=== PATIENT | female | born 1995 | race Caucasian/White ===

== ENCOUNTER 2023-10-23 22:45 | Emergency (ER) | payer SELFPAY ==
[2023-10-24 00:19] LABS: Internal Control Within Normal Limits; Strep A Antigen Screen Negative
--- NOTE | 2023-10-24 00:45 | ED.URI1 ---
HPI - URI/Sore Throat General Stated Complaint: sore throat Time Seen by Provider: 10/24/23 00:41 History of Present Illness HPI Narrative: states she kicked something at work last PM and bruised her right foot. also complains of mild cough that is dry and sore throat. no fever. Not short of breath. No problem swallowing. No nausea or vomiting able to walk without difficulty Review of Systems ROS Status of ROS 10 or more systems reviewed and unremarkable except as noted in history and below Exam Constitutional Vital Signs, click to edit/add: Last Vital Signs Resp 18 10/24/23 00:28 Common normals: no apparent distress, oriented x3, no limitations, alert and well nourished HENMT Common normals: normocephalic and head/scalp atraumatic Throat: posterior oropharynx normal Eye Common normals: PERRL, EOMs intact bilaterally and conjunctivae normal Respiratory Common normals: normal respiratory effort, no retractions, no use of accessory muscles and clear to auscultation bilaterally Cardio Common normals: regular rate, regular rhythm, S1 normal heart sound and S2 normal heart sound GI Common normals: Normal to inspection, nondistended, normoactive bowel sounds present, soft to palpation and non-tender Extremity Common normals: normal to inspection and full ROM Neuro Common normals: oriented x3, CN's II-XII intact bilaterally, moves all extremities and no focal motor deficits Psych Appearance: grossly normal Course Vital Signs Vital signs: Vital Signs Respiratory Rate 18 10/24/23 00:28 Respiratory Rate 18 10/24/23 00:28 MDM - URI/Sore Throat MDM Narrative Medical decision making narrative: patient presents complaining of foot pain. Kicked something and hurt her right foot. No swelling or discoloration. No pain with ROM. Also complains of dry cough and sore throat. Throat clear and chest clear. Patient very stable clinically. Requesting work note for tonight and discharged home Lab Data Labs: Lab Results 10/23/23 Range/Units 23:56 Streptococcus Screen Negative Discharge Plan Discharge Stand Alone Forms: Work/School Release, Portal Instructions Clinical Impression: Contusion of foot, right, URI (upper respiratory infection) Patient Disposition: Home, Self-Care Print Language: Citizen Of [place] Instructions: Upper Respiratory Infection (ED), Foot Contusion (ED) Additional Instructions: follow up with your doctor in next few days Referrals: Physician,Non-Staff, MD [Primary Care Provider] - 1 week
== END 2023-10-24 00:58 | disposition home or self-care (01) ==
PROVIDERS: Emergency Provider Internal Medicine
DX: S90.31XA Contusion of right foot, initial encounter (principal); J06.9 Acute upper respiratory infection, unspecified; W22.8XXA Striking against or struck by other objects, initial encounter
CPT/HCPCS: 87070; 87880; 99283

== ENCOUNTER 2023-10-26 18:52 | Emergency (ER) | payer SELFPAY ==
[2023-10-26 18:59] VITALS: BP 136/95; PULSE 94; TEMP 36.9; O2SAT 99; BMI 44.7
--- OUTSIDE RECORDS SUMMARY | 2023-10-26 19:03 | XMS_ITS | CCD ---
Author Organization [facility] Care Team Providers Care Staff Readiness Officer Name Role Phone MAYRA RUIZ A Unavailable Unavailable GILMA LENDITA Unavailable Unavaila EVETTE Abreu Unavailable Unavailable LARISSA SUGGS Unavailable Unavailable ADRIANNA GOMEZ Primary Care Unavailable GLORIA HENRY Admitting Unavailable GLORIA HENRY Attending Unavailable GLORIA HENRY Consulting Unavailable Unavailable Primary Care Provider UnavailCHAR Sterling Attending Unavailable TUNDE CASTRO Attending Unavailable Unavailable Primary Care Provider UnavailAdrianna Gil Primary Care Physician Unavailab Anita Nelson Physician Unavailable Al-Vicente, Issam A Primary Care Provider Unavailab le Al-Vicente, Issam A Primary Care Provider Unavailab le Unavailable Primary Care Provider UnavailObed Brown MD Primary Care Provider [phone] Aj GONZALES, Nicole Adams Primary Care Provider Johana Ayala MD Primary Care Provider Johana Ayala MD Primary Care Provider UNKNOWN, PHYSICIAN Primary Care Unavailable SELF, REFERRED Referring Unavailable PRICILA COSTA Attending Unavailable PRICILA COSTA Admitting Unavailable KATLYN WILLAMS Admitting Unavailable SELF, REFERRED Primary Care Unavailable SELF, REFERRED Referring Unavailable KATLYN WILLAMS Attending Unavailable PEDRO DONG Admitting Unavailable SELF, REFERRED Referring Unavailable SELF, REFERRED Primary Care Unavailable PEDRO DONG Attending Unavailable SELF, REFERRED Referring Unavailable SELF, REFERRED Primary Care Unavailable PEDRO DONG Attending Unavailable PEDRO DONG Admitting Unavailable UNKNOWN, PHYSICIAN Primary Care Unavailable SELF, REFERRED Referring Unavailable DOMINGUEZ WESLEY Attending Unavailable DOMINGUEZ WESLEY Admitting Unavailable SON Burgess Attending Provider Johana Ayala MD Primary Care Provider Kb Pelaez CNP Primary Care Provider [phone] Kb Pelaez CNP Attending Unavailable Heather HARTLEY, Johana Abrams Attending [facility] Primary Care Provider [phone] VERENICE LLANES Attending [facility]ending Un[facility] Referring Unavailable [facility] Primary Care Unavailable JESSICA AGUSTIN Referring Unavailable [facility], AMJAD Primary Care Unavailable DREAD FUENTES Referring Unavailabl e JAMIE, AMJAD Primary Care Unavailable SRAVANTHI BAL Referring Unavailable [facility] Primary Care Unavailable ODALYS MOORE Referring Unavailable [facility] Un[facility] Referring Unavailable [facility] Primary Care Unavailable KB PELAEZ Referring Unavailable [facility] Primary Care Unavailable KB PELAEZ Referring Unavailable [facility] Primary Care Unavailable Carrol Culp DDS Unavailable [phone] [facility] Primary Care Provider [facility] Referring Unavailable [facility] Primary Care Unavailable KIRSTEN BLANDON Attending Unavailable [facility] Referring Unavailable [facility] Primary Care Unavailable ROSALIE COX Attending Unavailable POLINA FLOWERS Attending Unavailable [facility] Referring Unavailable [facility] Primary Care Unavailable [facility] Primary Care Physician Unavailab EMMIE Jacobsen Attending Unavaila YEISON Mccrakcen Primary Care Unavailable ANNA LUNA S Consulting Unavailable MAUCHRISPRIYANKADuyen Admitting Unavailsuman LEWIS JUANITA Primary Care Unavailable JANNETH KUMAR GEORGIANA Adams~[id number] Atte nding Unavailable JAROD SWANSON Attending UnavailFlakito Ramirez Attending Unavailable Anup PRINCE Referring Unavailable JAROD SWANSON Attending JAROD Manrique Attending Unavailkoffi e Allergies Allergy Classification Reported Allergen(s) Allergy Type Date of Onset Reaction(s) Facility Cabbage preparation (5 sources) Cabbage preparation Drug Allergy 8 [facility] Latex (5 sources) Latex Substance Allergy 9 [facility] metFORMIN (5 sources) metFORMIN Drug Allergy 9 [facility] Opioid Agonists (5 sources) Codeine Drug Allergy 0 [facility] tomato allergenic extract (5 sources) tomato allergenic extract Drug Allergy 1 Anaphylaxis [facility] (19 sources) Cabbage preparation; Translations: [cabbage] Drug Allergy 7 Anaphylaxis [facility] (19 sources) metFORMIN; Translations: [metFORMIN] Drug Allergy 9 Anaphylaxis [facility] (20 sources) Cabbage preparation Drug Allergy 8 [place], [place] (20 sources) Latex; Translations: [Latex] Propensity to adverse reactions to drug 9 Rash [place] (20 sources) metFORMIN; Translations: [metformin] Drug Allergy 9 Hives, Anaphylaxis [place] (20 sources) Dove Flavor; Translations: [dove flavor] Propensity to adverse reactions to drug 8 Dermatitis [facility] (20 sources) Eggs Or Egg-Derived Products Propensity to adverse reactions to drug 8 Nausea And Vomiting [place] (20 sources) Flavoring Agent; Translations: [FLAVORING AGENT] Propensity to adverse reactions to drug 8 Hives, Rash [place] (20 sources) Nutritional Supplements; Translations: [NUTRITIONAL SUPPLEMENTS] Propensity to adverse reactions to drug 8 [place] (20 sources) Codeine; Translations: [codeine] Drug Allergy 0 Anaphylaxis, Rash, Eruption of skin (disorder) [place] (2 sources) egg extract Drug Allergy 7 Anaphylaxis [facility] (6 sources) GRAPEFRUIT EXTRACT; Translations: [grapefruit] [facility] Lactose Drug Allergy 7 Nausea [facility] (20 sources) Ketorolac; Translations: [KETOROLAC TROMETHAMINE] Drug Allergy 1 [facility] (20 sources) tomato allergenic extract; Translations: [TOMATO] Drug Allergy 1 Anaphylaxis [facility] (1 source) Codeine Drug Allergy 2 [facility] Rep[facility] (17 sources) Ketorolac; Translations: [Toradol] Drug Allergy 2 Skin Rashes / Eruption of skin [facility] (1 source) multiple foods; Translations: [multiple foods] Propensity to adverse reactions (disorder) 2 [facility] (16 sources) tomatoes; Translations: [Tomatoes] Allergy to substance 1 Anaphylaxis [facility] (11 sources) Methocarbamol; Translations: [methocarbamol] Drug Allergy 2 Rash [facility] (14 sources) dove allergenic extract Drug Allergy 3 Skin Rashes / Eruption of skin [facility] (14 sources) GRAPEFRUIT EXTRACT Drug Allergy 3 Anaphylaxis [facility] (14 sources) Lactose (non-medical use) Allergy to substance 3 Nausea [facility] (1 source) Egg; Translations: [eggs] Propensity to adverse reactions to food (disorder) [facility] Rep[facility] (4 sources) Lactose (non-medical use) Propensity to adverse reactions to drug 3 Nausea Only [facility] (2 sources) Ketorolac; Translations: [KETOROLAC] Drug Allergy 2 Weal (disorder) [facility] Rep[facility] (3 sources) Egg; Translations: [EGG DERIVED] Propensity to adverse reactions to drug 8 Anaphylaxis [facility] (4 sources) metFORMIN; Translations: [metFORMIN HCl 1000 MG Oral Tablet] Drug Allergy 4 [facility] (3 sources) Methocarbamol; Translations: [Robaxin 100 MG/ML Injection Solution] Drug Allergy 4 Skin Rashes / Eruption of skin [facility] (2 sources) Shellfish; Translations: [SHELLFISH DERIVED] Propensity to adverse reactions to drug 4 Facial Swelling [facility] (1 source) glyBURIDE / metFORMIN; Translations: [glyburide-metf ormin] Drug Allergy [facility] Repository (1 source) No Known Medication Allergies; Translations: [No Known Medication Allergies] Propensity to adverse reactions (disorder) [facility] Repository Medications Current Medications Medication Drug Class(es) Dates Sig (Normalized) Sig (Original) acetaminophen 500 mg oral tablet (20 sources) Start: 05-27-2022 End: 04-09-2023 Acetaminophen 500 MG Oral Tablet 04/09/2023 Provider: Juanita Lewis PA-C Start: 12-24-2021 take 2 tablets by mo ut every six hours as needed for pain acetaminophen (TYLENOL) 500 MG tablet Take 2 tablets by mouth every 6 hours as needed for Pain 360 tablet 0 12/24/2021 Active Start: 12-24-2021 acetaminophen (TYLENOL) tablet 650 mg Start: 03-20-2021 take 2 tablets by mo uth four times daily as needed for pain acetaminophen (TYLENOL) 500 MG tablet Take 2 tablets by mouth 4 times daily as needed for Pain 20 tablet 0 03/20/2021 Active Start: 03-20-2021 acetaminophen (TYLENOL) tablet 1,000 mg Start: 01-28-2021 End: 03-20-2021 take 1 tablet by mouth three times daily as needed for pain acetaminophen (TYLENOL) 500 MG tablet Take 1 tablet by mouth 3 times daily as needed for Pain or Fever 20 tablet 0 01/28/2021 03/20/2021 Discontinued (LIST CLEANUP) Start: 01-09-2021 acetaminophen (TYLENOL) tablet 1,000 mg Start: 01-09-2021 End: 01-28-2021 take 1 tablet by mouth twice daily as needed for pain acetaminophen (TYLENOL) 500 MG tablet Take 1 tablet by mouth 2 times daily as needed for Pain or Fever 20 tablet 0 01/09/2021 01/28/2021 Discontinued (REORDER) Start: 11-03-2020 acetaminophen (TYLENOL) tablet 1,000 mg Start: 08-25-2020 End: 01-09-2021 take 2 tablets by mouth every six hours as needed for pain acetaminophen (TYLENOL) 325 MG tablet Take 2 tablets by mouth every 6 hours as needed for Pain 60 tablet 0 08/25/2020 01/09/2021 Discontinued (LIST CLEANUP) Start: 11-29-2019 End: 01-09-2021 take 2 tablets by mouth every eight hours as needed for pain acetaminophen (TYLENOL) 500 MG tablet Take 2 tablets by mouth every 8 hours as needed for Pain or Fever 30 tablet 0 12/17/2019 01/09/2021 Discontinued (LIST CLEANUP) albuterol 0.83 mg/ml inhalation solution (20 sources) beta2-Adrenergic Agonist Start: 01-22-2023 take 3 mL by inhalation every six hours as needed for wheezing albuterol (PROVENTIL,VENTOLIN) 2.5 mg /3 mL (0.083 %) nebulizer solution Indications: Asthma with acute exacerbation, unspecified asthma severity, unspecified whether persistent Inhale 3 mL (2.5 mg total) by nebulization every 6 (six) hours as needed for wheezing. 75 mL 0 01/22/2023 Active Start: 01-22-2023 take 1-2 puff(s) by inhalation every six hours as needed for wheezing albuterol (PROVENTIL HFA;VENTOLIN HFA) 90 mcg/actuation inhaler Indications: Asthma with acute exacerbation, unspecified asthma severity, unspecified whether persistent Inhale 1-2 puffs every 6 (six) hours as needed for wheezing. 18 g 0 01/22/2023 Active Start: 12-06-2022 Albuterol Sulf ate HFA 108 (90 Base) MCG/ACT Inhalation Aerosol Solution 12/06/2022 Provider: Start: 05-07-2021 take 2 puff(s) by in halation four times daily as needed for wheezing albuterol sulfate HFA (VENTOLIN HFA) 108 (90 Base) MCG/ACT inhaler Inhale 2 puffs into the lungs 4 times daily as needed for Wheezing 1 each 1 05/07/2021 Active Start: 09-01-2020 take 2 puff(s) by in halation four times daily as needed for wheezing albuterol sulfate HFA (VENTOLIN HFA) 108 (90 Base) MCG/ACT inhaler Inhale 2 puffs into the lungs 4 times daily as needed for Wheezing 3 Inhaler 0 09/01/2020 Active Start: 05-11-2019 End: 06-28-2019 Albuterol Sulfate Discontinu ed 2 INH INHALATION every 6 to 8 hours May 11, 2019 12:00am June 28, 2019 8:31pm Start: 09-30-2018 take 1 puff(s) by in halation every six hours as needed for wheezing Albuterol Sulfate [Ventolin Hfa] 2 PUFF Inhalation Q6H PRN For Shortness Of Breath Or Wheezing September 30, 2018 Active Start: 09-30-2018 take 1 puff(s) by in halation every six hours as needed for wheezing Albuterol Sulfate 2 PUFF Inhalation Q6H PRN For Shortness Of Breath Or Wheezing 1 September 30, 2018 Active Start: 09-30-2018 End: 05-19-2020 take 1 puff(s) by inhalation every six hours Albuterol Sulfate (Ventolin Hfa) 90 mcg/actuation Hfa Aerosol Inhaler Discontinued 2 PUFF INHALATION Q6H September 30, 2018 12:00am May 19, 2020 2:39pm Start: 10-31-2017 End: 09-26-2018 take 1 puff(s) by inhalation twice daily Albuterol Sulfate 2 PUFF Inhalation Twice daily October 31, 2017 Discontinued Start: 10-31-2017 End: 09-26-2018 take 1 puff(s) by inhalation twice daily Albuterol Sulfate 2 PUFF Inhalation Twice daily October 31, 2017 September 26, 2018 Discontinued Start: 10-31-2017 End: 09-26-2018 take 1 puff(s) by inhalation twice daily Albuterol Sulfate Discontinued 2 PUFF INHALATION Twice daily October 31, 2017 12:00am September 26, 2018 10:16am amoxicillin 875 mg / clavulanate 125 mg oral tablet (20 sources) Penicillin-class Antibacterial Start: 02-26-2023 End: 03-05-2023 take 1 tablet by mouth once in the morning amoxicillin-pot clavulanate (AUGMENTIN) 875-125 mg per tablet Indications: Acute bilateral otitis media Take 1 tablet by mouth in the morning and 1 tablet before bedtime. Do all this for 7 days. 14 tablet 0 02/26/2023 03/05/2023 Active Start: 11-05-2022 End: 11-29-2022 Amoxicillin-Pot Clavulanate 875-125 MG Oral Tablet 11/05/2022 - 11/29/2022 Provider: Juanita Lewis PA-C Start: 04-29-2022 End: 05-17-2022 Amoxicillin-Pot Clavulanate 500-125 MG Oral Tablet 04/29/2022 - 05/17/2022 Provider: Start: 12-16-2021 End: 12-23-2021 take 1 tablet by mouth twice daily amoxicillin-clavulanate (AUGMENTIN) 875-125 MG per tablet Take 1 tablet by mouth 2 times daily for 7 days 14 tablet 0 12/16/2021 12/23/2021 Active Start: 12-16-2021 End: 12-16-2021 amoxicillin-clavulanate (AUG MENTIN) 875-125 MG per tablet 1 tablet aspirin 81 mg chewable tablet (2 sources) Platelet Aggregation Inhibitor, Nonsteroidal Anti-inflammatory Drug Start: 11-29-2019 aspirin chewable tablet 324 mg Start: 11-28-2019 End: 11-28-2019 aspirin 81 MG chewable table t azithromycin 250 mg oral tablet (2 sources) Macrolide Antimicrobial Start: 12-01-2019 End: 12-05-2019 azithromycin (ZITHROMAX Z-CORDELIA) 250 MG tablet Indications: Cough , Acute upper respiratory infection Take 2 tablets (500 mg) on Day 1, and then take 1 tablet (250 mg) on days 2 through 5. 1 packet 0 12/01/2019 12/05/2019 Active Start: 12-01-2019 End: 12-01-2019 azithromycin (ZITHROMAX) tab let 500 mg benzonatate 100 mg oral capsule (4 sources) Non-narcotic Antitussive Start: 10-31-2022 End: 11-07-2022 take 1 capsule by mouth three times daily as needed for cough benzonatate (TESSALON PERLES) 100 MG capsule Take 1 capsule by mouth 3 times daily as needed for Cough 30 capsule 0 10/31/2022 11/07/2022 Active Start: 11-29-2019 End: 12-06-2019 benzonatate (TESSALON) capsu le 100 mg blood-glucose meter kit (2 sources) Start: 07-02-2021 blood-glucose meter kit Indications: Type 2 diabetes mellitus without complication, without long-term current use of insulin ([facility]) Use as instructed 1 each 0 07/02/2021 Active brompheniramine maleate 0.4 mg/ml / dextromethorphan hydrobromide 2 mg/ml / pseudoephedrine hydrochloride 6 mg/ml oral solution (3 sources) alpha-Adrenergic Agonist, Uncompetitive I-njztjf-T-aspartat e Receptor Antagonist, Sigma-1 Agonist Start: 02-05-2023 End: 02-26-2023 take 10 mL by mouth four times daily as needed for cough brompheniramine-ps eudoeph-DM 2-30-10 mg/5 mL syrup Take 10 mL by mouth 4 (four) times a day as needed for allergies, cough or congestion. 120 mL 0 02/26/2023 Active 60 actuat budesonide 0.16 mg/actuat / formoterol fumarate 0.0045 mg/actuat metered dose inhaler (11 sources) Corticosteroid, beta2-Adrenergic Agonist Start: 01-24-2023 End: 04-09-2023 Symbicort 160-4.5 MCG/ACT Inhalation Aerosol 04/09/2023 Provider: Juanita Lewis PA-C Start: 01-24-2023 take 2 puff(s) by [facility] twice daily SYMBICORT 160-4.5 mcg/actuation inhaler INHALE TWO puffs BY MOUTH TWICE DAILY. RINSE MOUTH AFTER USE. 0 01/24/2023 Active bupivacaine hydrochloride 2.5 mg/ml injectable solution (2 sources) Amide Local Anesthetic Start: 07-05-2021 bupivacaine (MARCAINE) 0.25 % injection 5 mg busPIRone hydrochloride 10 mg oral tablet (2 sources) Start: 04-07-2018 busPIRone (BUSPAR) 10 MG tablet Take 15 mg by mouth 2 times daily 0 04/07/2018 Active cephalexin 500 mg oral capsule (10 sources) Cephalosporin Antibacterial Start: 06-19-2021 End: 06-26-2021 take 1 capsule by mouth four times daily cephALEXin (KEFLEX) 500 MG capsule Take 1 capsule by mouth 4 times daily for 7 days 28 capsule 0 06/19/2021 06/26/2021 Active Start: 10-11-2020 End: 10-18-2020 take 1 capsule by mouth four times daily cephALEXin (KEFLEX) 500 MG capsule Take 1 capsule by mouth 4 times daily for 7 days 27 capsule 0 10/11/2020 10/18/2020 Active Start: 09-08-2020 End: 09-15-2020 take 1 capsule by mouth four times daily cephALEXin (KEFLEX) 500 MG capsule Take 1 capsule by mouth 4 times daily for 7 days 28 capsule 0 09/08/2020 09/15/2020 Active Start: 09-08-2020 End: 09-08-2020 cephALEXin (KEFLEX) capsule 500 mg Start: 04-23-2020 End: 04-30-2020 take 1 capsule by mouth twice daily cephALEXin (KEFLEX) 500 MG capsule Take 1 capsule by mouth 2 times daily for 7 days 14 capsule 0 04/23/2020 04/30/2020 Active Start: 09-30-2018 End: 06-19-2019 take 500 mg by mouth every six hours Cephalexin 500 MG Oral Every 6 hours September 30, 2018 Active cholecalciferol 2000 unt oral capsule (5 sources) Vitamin D Start: 03-10-2018 take 1 capsule by mouth once daily Cholecalciferol 2000 units CAPS Take 2,000 Units by mouth daily 0 03/10/2018 Active Start: 11-06-2017 End: 09-26-2018 take 2000 [IU] by mouth once daily Cholecalciferol (Vitamin D3) 2000 UNIT Oral Daily November 06, 2017 Discontinued Start: 11-06-2017 End: 09-26-2018 take 2 tablets by mouth once daily Cholecalciferol (Vitamin D3) (Vitamin D3) 1,000 unit Tablet Discontinued 2000 UNIT PO Daily November 06, 2017 12:00am September 26, 2018 10:16am [facility] Vitamin C 500 MG Oral Tablet (5 sources) Start: 12-09-2022 [facility] Vitamin C 500 MG Oral Tablet 12/09/2022 Provider: Juanita Lewis PA-C dextromethorphan hydrobromide 2 mg/ml / guaiFENesin 20 mg/ml oral suspension (1 source) Uncompetitive Q-tvjdpc-Q-aspartat e Receptor Antagonist, Sigma-1 Agonist Start: 10-31-2022 End: 11-10-2022 take 5 mL by mouth three times daily as needed for cough guaiFENesin-dext romethorphan (ROBITUSSIN DM) 100-10 MG/5ML syrup Take 5 mLs by mouth 3 times daily as needed for Cough 120 mL 0 10/31/2022 11/10/2022 Active doxycycline hyclate 100 mg oral tablet (3 sources) Tetracycline-class Drug Start: 04-23-2020 End: 05-07-2020 take 1 tablet by mouth twice daily doxycycline hyclate (VIBRA-TABS) 100 MG tablet Take 1 tablet by mouth 2 times daily for 14 days 28 tablet 0 04/23/2020 05/07/2020 Active Start: 08-09-2019 End: 08-19-2019 take 1 tablet by mouth twice daily doxycycline hyclate (VIBRA-TABS) 100 MG tablet Take 1 tablet by mouth 2 times daily for 10 days 20 tablet 0 08/09/2019 08/19/2019 Active EQ Nicotine 14 MG/24HR Transdermal Patch 24 Hour (4 sources) Start: 04-09-2023 EQ Nicotine 14 MG/24HR Transdermal Patch 24 Hour 04/09/2023 Provider: Juanita Lewis PA-C famotidine 20 mg oral tablet (1 source) Histamine-2 Receptor Antagonist Start: 04-30-2023 End: 05-05-2023 take 1 tablet by mouth in the morning, then take 1 tablet by mouth at bedtime famotidine (PEPCID) 20 mg tablet Indications: Allergic reaction to seafood Take 1 tablet (20 mg total) by mouth in the morning and 1 tablet (20 mg total) before bedtime. Do all this for 5 days. 10 tablet 0 04/30/2023 05/05/2023 Active ferrous sulfate 325 mg oral tablet (20 sources) Start: 09-18-2022 End: 04-09-2023 Ferrous Sulfate 325 (65 Fe) MG Oral Tablet 04/09/2023 Provider: Juanita Lewis PA-C Start: 08-12-2022 take 1 tablet by barb th twice daily ferrous sulfate (IRON 325) 325 (65 Fe) MG tablet Take 1 tablet by mouth 2 times daily 60 tablet 0 08/12/2022 Active Start: 05-17-2022 End: 09-18-2022 Ferrous Sulfate 325 (65 Fe) MG Oral Tablet Delayed Release 05/17/2022 - 09/18/2022 Provider: Juanita Lewis PA-C Fish Oils (20 sources) Start: 09-18-2022 [facility] Fish Oil 1 200 MG Oral Capsule 09/18/2022 Provider: Juanita Lewis PA-C Start: 05-17-2022 End: 09-18-2022 Fish Oil 1200 MG Oral Capsul e 05/17/2022 - 09/18/2022 Provider: Juanita Lewis PA-C Start: 05-17-2022 Fish Oil 1200 MG Oral Capsule 05/17/2022 Provider: Juanita Lewis PA-C fluconazole 150 mg oral tablet (4 sources) Azole Antifungal Start: 08-28-2022 fluconazole (DIFLUCAN) 150 MG tablet Take 1 tablet by mouth every 7 days Repeat dose in 7 days 2 tablet 0 08/28/2022 Active gabapentin 100 mg oral capsule (20 sources) Anti-epileptic Agent Start: 12-13-2019 take 1 capsule by mouth in the morning, then take 1 capsule by mouth at bedtime gabapentin (NEURONTIN) 100 mg capsule Take 1 capsule (100 mg total) by mouth in the morning and 1 capsule (100 mg total) before bedtime. 0 12/13/2019 Active hydrOXYzine pamoate 25 mg oral capsule (20 sources) Antihistamine Start: 06-19-2019 take 1 capsule by mouth four times daily Hydroxyzine Pamoate (Vistaril) 25 mg Capsule Active 25 MG PO Four times daily June 19, 2019 12:00am Start: 11-05-2016 End: 01-22-2017 take 25 mg by mouth three times daily Hydroxyzine Pamoate 25 MG Oral Three times daily November 05, 2016 January 22, 2017 Discontinued lithium carbonate 450 mg extended release oral tablet (17 sources) Start: 09-30-2018 End: 01-09-2021 take 450 mg by mouth twice daily [place] Carbonate Active 450 MG PO Twice daily 60 30 July 05, 2019 12:00am loratadine 10 mg oral tablet (1 source) Start: 04-30-2023 take 1 tablet by mouth once daily as needed loratadine (CLARITIN) 10 mg tablet Indications: Allergic reaction to seafood Take 1 tablet (10 mg total) by mouth daily as needed for allergies. 10 tablet 0 04/30/2023 Active 1 ml medroxyPROGESTERone acetate 150 mg/ml injection (5 sources) Progestin medroxyPROGESTER one (DEPO-PROVERA) 150 MG/ML injection Inject 150 mg into the muscle every 3 months 0 Active 1 ml methylPREDNISolone acetate 80 mg/ml injection (2 sources) Corticosteroid Start: 07-05-2021 methylPREDNISolone acetate (DEPO-MEDROL) injection 80 mg naproxen 250 mg oral tablet (20 sources) Nonsteroidal Anti-inflammatory Drug Start: 08-03-2019 naproxen (NAPROSYN) tablet 500 mg Start: 08-03-2019 take 1 tablet by barb th twice daily at mealtime naproxen (NAPROSYN) 375 MG tablet Take 1 tablet by mouth 2 times daily (with meals) 20 tablet 0 08/03/2019 Active Start: 09-30-2018 End: 06-19-2019 take 250 mg by mouth twice daily as needed for pain Naproxen 250 MG Oral Twice daily PRN For pain 40 September 30, 2018 Active Start: 03-10-2018 End: 08-03-2019 take 1 tablet by mouth twice daily naproxen (NAPROSYN) 500 MG tablet Take 500 mg by mouth 2 times daily 0 03/10/2018 08/03/2019 Discontinued (Therapy completed) OXcarbazepine 300 mg oral tablet (20 sources) Anti-epileptic Agent Start: 04-09-2023 End: 06-16-2023 OXcarbazepine 300 MG Oral Tablet 06/16/2023 Provider: Jelani Harris CNP Start: 07-05-2019 End: 05-19-2020 take 1 tablet by mouth in the morning, then take 1 tablet by mouth at bedtime OXcarbazepine (TRILEPTAL) 600 mg tablet Take 1 tablet (600 mg total) by mouth in the morning and 1 tablet (600 mg total) before bedtime. 0 12/13/2019 Active Start: 09-30-2018 End: 06-19-2019 take 600 mg by mouth twice daily Oxcarbazepine 600 MG Oral Twice daily 60 30 September 30, 2018 Active Start: 11-21-2017 End: 09-26-2018 take 450 mg by mouth twice daily Oxcarbazepine 450 MG Oral Twice daily November 21, 2017 Discontinued Start: 08-30-2017 End: 11-21-2017 take 1 tablet by mouth twice daily Oxcarbazepine (Trileptal) 300 mg Tablet Discontinued 300 MG PO Twice daily October 31, 2017 12:00am November 21, 2017 10:24am prazosin 1 mg oral capsule (20 sources) alpha-Adrenergic Ron Start: 04-09-2023 End: 06-16-2023 Prazosin HCl 1 MG Oral Capsule 06/16/2023 Provider: Jelani Harris CNP Start: 10-20-2021 take 1 capsule by mo [facility] at bedtime prazosin (MINIPRESS) 1 MG capsule take 1 capsule by mouth at bedtime 0 10/20/2021 Active Start: 12-13-2019 take 1 capsule by mo [facility] once daily prazosin (MINIPRESS) 2 mg capsule Take 1 capsule (2 mg total) by mouth nightly. 0 12/13/2019 Active Start: 07-05-2019 End: 05-19-2020 take 2 mg by mouth once daily at bedtime Prazosin Discontinued 2 MG PO Daily at bedtime 60 July 05, 2019 12:00am May 19, 2020 2:39pm Start: 09-30-2018 End: 06-19-2019 take 3 mg by mouth once daily at bedtime Prazosin 3 MG Oral Daily at bedtime 90 30 September 30, 2018 Active Start: 11-21-2017 End: 09-26-2018 take 5 mg by mouth once daily at bedtime Prazosin 5 MG Oral Daily at bedtime November 21, 2017 Discontinued Start: 08-30-2017 End: 11-21-2017 take 1 capsule by mouth once daily at bedtime Prazosin (Minipress) 2 mg Capsule Discontinued 2 MG PO Daily at bedtime October 31, 2017 12:00am November 21, 2017 10:23am Start: 04-29-2017 End: 11-01-2017 take 2 mg by mouth once daily at bedtime Prazosin 2 MG Oral Daily at bedtime April 29, 2017 October 31, 2017 Discontinued Start: 11-11-2016 End: 04-23-2017 take 1 mg by mouth once daily at bedtime Prazosin Discontinued 1 MG PO Daily at bedtime January 30, 2017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 vulva and vagina] Onset: 11-11-2022 Unclassified (2 sources) RIGHT SIDE PAIN, Onset: 06-28-2022 Unclassified (1 source) Sinus Problem Onset: 02-26-2023 Urinary tract infections (4 sources) Acute cystitis; Translations: [Acute cystitis with hematuria] Episodic Past or Other Problems Problem Classification Problem Date Documented Date Episodic/Chronic Allergic reactions (15 sources) Drug-induced anaphylactoid reaction; Translations: [Personal history of anaphylaxis] Onset: 04-29-2022 04-29-2022 Episodic Cancer of cervix (6 sources) Cervicovaginal cytology: Low grade squamous intraepithelial lesion; Translations: [Low grade squamous intraepithelial lesion on cytologic smear of cervix (LGSIL)] Onset: 08-09-2022 08-09-2022 Episodic Deficiency and other anemia (20 sources) Iron deficiency anemia; Translations: [Iron deficiency anemia, unspecified] Onset: 05-17-2022 05-17-2022 Episodic Diabetes mellitus without complication (20 sources) Hyperglycemia; Translations: [Hyperglycemia, unspecified] Onset: 09-07-2020 11-02-2017 Episodic Genitourinary symptoms and ill-defined conditions (8 sources) Finding of frequency of urination; Translations: [Urinary frequency] Onset: 10-17-2022 Episodic Immunizations and screening for infectious disease (20 sources) Encounter for screening for other viral diseases; Translations: [Screening For Hep C] Onset: 04-29-2022 Episodic Influenza (8 sources) Influenzal acute upper respiratory infection; Translations: [Influenza with other respiratory manifestations] Onset: 10-17-2022 Episodic Nausea and vomiting (5 sources) Nausea and vomiting; Translations: [Intractable nausea and vomiting] Onset: 10-30-2022 Episodic Nonspecific chest pain (2 sources) Chest pain; Translations: [Chest wall pain] Episodic Other connective tissue disease (20 sources) Pain in lower limb; Translations: [Structure of lower extremity from knee to ankle (body structure)] Onset: 05-27-2022 05-27-2022 Episodic Other female genital disorders (20 sources) History of recurrent miscarriage - not ; Translations: [Recurrent loss] Onset: 04-29-2022 04-29-2022 Episodic Other female genital disorders (2 sources) Recurrent miscarriage; Translations: [Recurrent loss] Onset: 07-24-2020 07-24-2020 Episodic Other lower respiratory disease (12 sources) Snoring; Translations: [Other respiratory abnormalities] Onset: 05-17-2022 Episodic Other nutritional; endocrine; and metabolic disorders (12 sources) Increased body mass index; Translations: [Other symptoms and signs concerning food and fluid intake] Onset: 05-07-2021 05-07-2021 Episodic Other screening for suspected conditions (not mental disorders or infectious disease) (13 sources) Encounter for screening for diabetes mellitus; Translations: [Diabetes Risk Test Score] Onset: 04-29-2022 Episodic Other upper respiratory infections (20 sources) Acute pharyngitis, unspecified; Translations: [Viral upper respiratory tract infection] Onset: 04-13-2019 Episodic Otitis media and related conditions (14 sources) Acute serous otitis media of left ear; Translations: [Acute serous otitis media, left ear] Onset: 11-05-2022 Resolved: 11-29-2022 11-05-2022 Episodic Substance-related disorders (13 sources) Marijuana user; Translations: [Cannabis use, unspecified, uncomplicated] Onset: 05-07-2021 Episodic Superficial injury; contusion (10 sources) Contusion of lower leg; Translations: [Structure of anterior region of lower leg (body structure)] Onset: 05-27-2022 Episodic Unclassified (16 sources) Intervention & Counseling Cessation of Tobacco Use 3-10 Min.; Translations: [Intervention & Counseling Cessation of Tobacco Use 3-10 Min.] Onset: 10-17-2022 Unclassified (1 source) Acute candidiasis of vulva and vagina; Translations: [Acute candidiasis of vulva and vagina] Onset: 11-11-2022 Unclassified (2 sources) Onset: 08-15-2021 08-15-2021 Unclassified (4 sources) Consent for procedure given; Translations: [Consent Form For Procedure on File] Onset: 04-09-2023 Unclassified (4 sources) Nexplanon Implant Procedure; Translations: [Nexplanon Implant Procedure] Onset: 04-09-2023 Unclassified (4 sources) Nexplanon Implant Wound Care; Translations: [Nexplanon Implant Wound Care] Onset: 04-09-2023 Results Test Name Value Interpretation Reference Range Facility Provider Letteron 10-08-2023 Provider Letter Provider Letter October 08, 2023 SUSY DIAZ [address] [place] [address] SUSY DIAZ 1995 Dear Susy , We have been trying to reach you with no success. It is important that you return our call regarding your recent hospital discharge upon receiving this letter. Also, at the time of your call, please provide us with your current information. Thank you for your prompt attention to this matter. Sincerely, Edgar Lopez RN Horticultural Technical Officer [phone] Normal [facility] Hemoglobin A1Con 10-01-2023 Glucose [Mass/Vol] 111 mg/dL Normal [facility] Comment on above: Result Comment: The ADA and AACC recommend providing the estimated average glucose result to permit better patient understanding of their HBA1c result. Performed By: #### L IPR #### [facility] [address] [place] [address] Hall Clerk: Rafiq Fernández DO #### GLYHGB #### [facility] [address] [place] [address] [id number] Hall Clerk: Moisés Harp MD HbA1c (Bld) [Mass fraction] 5.5 % Normal 4.0-6.0 [facility] Comment on above: Performed By: #### L IPR #### [facility] [address] [place] [address] Hall Clerk: Rafiq Fernández DO #### GLYHGB #### [facility] [employer] [address] [place] [address] [phone] Hall Clerk: Moisés Harp MD Lipid Profileon 10-01-2023 Cholesterol [Mass/Vol] 135 mg/dL Normal <200 [facility] Comment on above: Result Comment: Cholesterol Guidelines: <200 Desirable 200-240 Borderline >240 Undesirable Performed By: #### L IPR #### [facility] [address] [place] [address] Hall Clerk: Rafiq Fernández DO #### GLYHGB #### [address] [address] Hall Clerk: Moisés Harp MD Cholesterol in HDL [Mass/Vol] 36 mg/dL Low >40 [facility] Comment on above: Result Comment: HDL Guidelines: <40 Undesirable 40-59 Borderline >59 Desirable Performed By: #### L IPR #### [facility] [address] [place] [address] Hall Clerk: Rafiq Fernández DO #### GLYHGB #### [address] [address] Hall Clerk: Moisés Harp MD Cholesterol in LDL [Mass/Vol] 83 mg/dL Normal 0-130 [facility] Comment on above: Result Comment: LDL Guidelines: <100 Desirable 100-129 Near to/above Desirable 130-159 Borderline >159 Undesirable Direct (measured) LDL and calculated LDL are not interchangeable tests. Performed By: #### L IPR #### [facility] [address] [place] [address] Hall Clerk: Rafiq Fernández DO #### GLYHGB #### [address] [address] Hall Clerk: Moisés Harp MD Cholesterol.total/Ch olesterol in HDL [Mass ratio] 3.8 {ratio} Normal <5 [facility] Comment on above: Performed By: #### L IPR #### [facility] [address] [place] [address] Hall Clerk: Rafiq Fernández DO #### GLYHGB #### [id number] [place] [address] Hall Clerk: Moisés Harp MD Triglyceride [Mass/Vol] 78 mg/dL Normal <150 [facility] Comment on above: Result Comment: Triglyceride Guidelines: <150 Desirable 150-199 Borderline 200-499 High >499 Very high Based on AHA Guidelines for fasting triglyceride, November 2011. Performed By: #### L IPR #### [facility] [address] [place] [address] Hall Clerk: Rafiq Fernández DO #### GLYHGB #### [id number] [place] [address] Hall Clerk: Moisés Harp MD CBCon 09-30-2023 Erythrocyte distribution width (RBC) [Ratio] 17.0 % High 11.5-14.9 [facility] Comment on above: Performed By: #### C P, CBC, EDTOX, TSHX #### [facility] [place] [address] Hall Clerk: Rafiq Fernández DO Hematocrit (Bld) [Volume fraction] 42.7 % Normal 36-46 [facility] Comment on above: Performed By: #### C P, CBC, EDTOX, TSHX #### [facility] [place] [address] Hall Clerk: Rafiq Fernández DO Hemoglobin (Bld) [Mass/Vol] 13.9 g/dL Normal 12.0-16.0 [facility] Comment on above: Performed By: #### C P, CBC, EDTOX, TSHX #### [facility] [address] [place] [address] Hall Clerk: Rafiq Fernández DO MCH (RBC) [Entitic mass] 25.3 pg Low 26-34 [facility] Comment on above: Performed By: #### C P, CBC, EDTOX, TSHX #### [facility] [address] [place] [address] Hall Clerk: Rafiq Fernández DO MCHC (RBC) [Mass/Vol] 32.7 g/dL Normal 31-37 [facility] Comment on above: Performed By: #### C P, CBC, EDTOX, TSHX #### [facility] [place] [address] Hall Clerk: Rafiq Fernández DO MCV (RBC) [Entitic vol] 77.4 fL Low 80-100 [facility] Comment on above: Performed By: #### C P, CBC, EDTOX, TSHX #### [facility] [address] [place] [address] Hall Clerk: Rafiq Fernández DO Platelet mean volume (Bld) [Entitic vol] 9.3 fL Normal 6.0-12.0 [facility] Comment on above: Performed By: #### C P, CBC, EDTOX, TSHX #### [facility] [address] [place] [address] Hall Clerk: Rafiq Fernández DO Platelets (Bld) [#/Vol] 231 10*3/uL Normal 150-450 [facility] Comment on above: Performed By: #### C P, CBC, EDTOX, TSHX #### [facility] [address] [place] [address] Hall Clerk: Rafiq Fernández DO RBC (Bld) [#/Vol] 5.51 10*6/uL High 4.0-5.2 [facility] Comment on above: Performed By: #### C P, CBC, EDTOX, TSHX #### [facility] [address] [facility] [place] [address] Hall Clerk: Rafiq Fernández DO WBC (Bld) [#/Vol] 7.0 10*3/uL Normal 3.5-11.0 [facility] Comment on above: Performed By: #### C P, CBC, EDTOX, TSHX #### [facility] [address] [place] [address] Hall Clerk: Rafiq Fernández DO Comp Metabolic Profon 2023 ALT [Catalytic activity/Vol] 19 U/L Normal 5-33 [facility] Comment on above: Result Comment: SPEC IMEN MODERATELY HEMOLYZED, RESULTS MAY BE ADVERSELY AFFECTED Performed By: #### C P, CBC, EDTOX, TSHX #### [facility] [address] [place] [address] Hall Clerk: Rafiq Fernández DO AST [Catalytic activity/Vol] 26 U/L Normal <32 [facility] Comment on above: Result Comment: SPEC IMEN MODERATELY HEMOLYZED, RESULTS MAY BE ADVERSELY AFFECTED Performed By: #### C P, CBC, EDTOX, TSHX #### [facility] [address] [place] [address] Hall Clerk: Rafiq Fernández DO Potassium [Moles/Vol] 5.2 mmol/L Normal 3.7-5.3 [facility] Comment on above: Result Comment: SPEC IMEN MODERATELY HEMOLYZED, RESULTS MAY BE ADVERSELY AFFECTED Performed By: #### C P, CBC, EDTOX, TSHX #### [facility] [address] [place] [address] Hall Clerk: Rafiq Fernández DO Albumin [Mass/Vol] 4.2 g/dL Normal 3.5-5.2 [facility] Comment on above: Performed By: #### C P, CBC, EDTOX, TSHX #### [facility] [address] [place] [address] Hall Clerk: Rafiq Fernández DO Alkaline Phos 85 U/L Normal 35-104 [facility] Comment on above: Performed By: #### C P, CBC, EDTOX, TSHX #### [facility] [address] [place] [address] Hall Clerk: Rafiq Fernández DO Anion gap [Moles/Vol] 11 mmol/L Normal 9-17 [facility] Comment on above: Performed By: #### C P, CBC, EDTOX, TSHX #### [facility] [address] [place] [address] Hall Clerk: Rafiq Fernández DO Bilirubin [Mass/Vol] 0.2 mg/dL Low 0.3-1.2 [facility] Comment on above: Performed By: #### C P, CBC, EDTOX, TSHX #### [facility] [address] [facility] [place] [address] Hall Clerk: Rafiq Fernández DO Calcium [Mass/Vol] 8.7 mg/dL Normal 8.6-10.4 [facility] Comment on above: Performed By: #### C P, CBC, EDTOX, TSHX #### [facility] [address] [facility] [place] [address] Hall Clerk: Rafiq Fernández DO Chloride [Moles/Vol] 106 mmol/L Normal 98-107 [facility] Comment on above: Performed By: #### C P, CBC, EDTOX, TSHX #### [facility] [address] [place] [address] Hall Clerk: Rafiq Fernández DO CO2 [Moles/Vol] 20 mmol/L Normal 20-31 [facility] Comment on above: Performed By: #### C P, CBC, EDTOX, TSHX #### [facility] [address] [facility] [place] [address] Hall Clerk: Rafiq Fernández DO Creatinine [Mass/Vol] 0.5 mg/dL Normal 0.5-0.9 [facility] Comment on above: Performed By: #### C P, CBC, EDTOX, TSHX #### [facility] [address] [facility] [place] [address] Hall Clerk: Rafiq Fernández DO GFR/1.73 sq M.predicted among non-blacks MDRD (S/P/Bld) [Vol rate/Area] mL/min/{1.73_m2} Normal >60 [facility] Comment on above: Result Comment: These results are not intended for use in patients <18 years of age. eGFR results are calculated without a race factor using the 2020 CKD-EPI equation. Careful clinical correlation is recommended, particularly when comparing to results calculated using previous equations. The CKD-EPI equation is less accurate in patients with extremes of muscle mass, extra-renal metabolism of creatine, excessive creatine ingestion, or following therapy that affects renal tubular secretion. Performed By: #### C P, CBC, EDTOX, TSHX #### [facility] [address] [facility] [place] [address] Hall Clerk: Rafiq Fernández DO Glucose [Mass/Vol] 155 mg/dL High 70-99 [facility] Comment on above: Performed By: #### C P, CBC, EDTOX, TSHX #### [facility] [address] [facility] [place] [address] Hall Clerk: Rafiq Fernández DO Protein [Mass/Vol] 8.5 g/dL High 6.4-8.3 [facility] Comment on above: Performed By: #### C P, CBC, EDTOX, TSHX #### [facility] [address] [place] [address] Hall Clerk: Rafiq Fernández DO Sodium [Moles/Vol] 137 mmol/L Normal 135-144 [facility] Comment on above: Performed By: #### C P, CBC, EDTOX, TSHX #### [facility] [address] [place] [address] Hall Clerk: Rafiq Fernández DO Urea nitrogen [Mass/Vol] 6 mg/dL Normal 6-20 [facility] Comment on above: Performed By: #### C P, CBC, EDTOX, TSHX #### [facility] [address] [place] [address] Hall Clerk: Rafiq Fernández DO Drug Scr, Abuse, Uron 2023 Amphetamine(s),Ur Negative Normal NEG [facility] Comment on above: Result Comment: (Positive cutoff 1000 ng/mL) Performed By: #### GIORGIO GARRIDO #### [facility] [address] [place] [address] Hall Clerk: Rafiq Fernández DO Barbiturate(s),Ur Negative Normal NEG [facility] Comment on above: Result Comment: (Positive cutoff 200 ng/mL) Performed By: #### GIORGIO GARRIDO #### [facility] [address] [place] [address] Hall Clerk: Rafiq Fernández DO Benzodiazepine(s) Negative Normal NEG [facility] Comment on above: Result Comment: (Positive cutoff 200 ng/mL) Performed By: #### GIORGIO GARRIDO #### [facility] [address] [place] [address] Hall Clerk: Rafiq Fernández DO Cannabinoid(s),Ur Negative Normal NEG [facility] Comment on above: Result Comment: (Positive cutoff 50 ng/mL) Performed By: #### GIORGIO GARRIDO #### [facility] [address] [facility] [place] [address] Hall Clerk: Rafiq Fernández DO Cocaine Metabolite Negative Normal NEG [facility] Comment on above: Result Comment: (Positive cutoff 300 ng/mL) Performed By: #### GIORGIO GARRIDO #### [facility] [address] [place] [address]. [place] [address] Hall Clerk: Rafiq Fernández DO Fentanyl, Urine Negative Normal NEG [facility] Comment on above: Result Comment: (Positive cutoff 5 ng/ml) Performed By: #### GIORGIO GARRIDO #### [facility] [address] [place] [address] Hall Clerk: Rafiq Fernández DO Interpretive Info Assay provides medic al screening only. The absence of expected drug(s) and/or Normal [facility] Comment on above: Result Comment: meta bolite(s) may indicate diluted or adulterated urine, limitations of testing or timing of collection. Testing for legal purposes should be confirmed by another method. To request confirmation of test result, please call the lab within 7 days of sample submission. Performed By: #### GIORGIO GARRIDO #### [facility] [address] [place] [address] Hall Clerk: Rafiq Fernández DO Methadone Ql (U) Negative Normal NEG [facility] Comment on above: Result Comment: (Positive cutoff 300 ng/mL) Performed By: #### GIORGIO GARRIDO #### [facility] [address] [place] [address] Hall Clerk: Rafiq Fernández DO Opiate(s), Ur Negative Normal NEG [facility] Comment on above: Result Comment: (Positive cutoff 300 ng/mL) Performed By: #### GIORGIO GARRIDO #### [facility] [address] [facility] [place] [address] Hall Clerk: Rafiq Fernández DO Oxycodone, Urine Negative Normal NEG [facility] Comment on above: Result Comment: (Positive cutoff 100 ng/mL) Performed By: #### [facility] #### [facility] [address] [place] [address]. [place] [address] Hall Clerk: Rafiq Fernández DO Phencyclidine, Ur Negative Normal NEG [facility] Comment on above: Result Comment: (Positive cutoff 25 ng/mL) Performed By: #### Genna LIM JASKARAN #### [facility] [address] [place] [address]. [place] [address] Hall Clerk: Rafiq Fernández DO HCG, ,Urineon 09-295 Beta HCG ( test) Ql (U) Negative Normal NEG [facility] Comment on above: Result Comment: Spec imens with hCG levels near the threshold of the test (25 mIU/mL) may give a negative or indeterminate result. In such cases, another test should be performed with a new specimen in 48-72 hours. If early is suspected clinically in this setting, correlation with quantitative serum b-hCG level is suggested. Performed By: #### Genna LIM [facility] #### [facility] [address] [place] [address] Hall Clerk: Rafiq Fernández DO TSH w/reflex to FT4on 0 Thyroid Stim. Horm. 1.64 uIU/mL Normal 0.30-5.00 [facility] Comment on above: Performed By: #### C P, CBC, EDTOX, TSHX #### [facility] [address] [place] [address]. [place] [address] Hall Clerk: Rafiq Fernández DO Tox Scr, Bld, EDon 4 Ethanol [Mass/Vol] 152 mg/dL High <10 [facility] Comment on above: Performed By: #### C P, CBC, EDTOX, TSHX #### [facility] [address] [facility] [place] [address] Hall Clerk: Rafiq Fernández DO Ethanol percent 0.152 % Normal [facility] Comment on above: Performed By: #### C P, CBC, EDTOX, TSHX #### [facility] [address] [facility] [place] [address] Hall Clerk: Rafiq Fernández DO Ambulatory Visit Summaryon 0 09-29-2023 Ambulatory Visit Summary Ambulatory Visit Summary LOSSUSY :1995 Visit Date:09/29/2023 Ambulatory Visit Instructions Your Diagnosis Insulin resistance Encounter to establish care BMI 45.0-49.9, adult Smoker Your Care Team Attending Physician - YEISON SWANSON CNP [facility], GENERIC This Is Your Medications List budesonide-formoterol (Symbicort 160/4.5 inhalation aerosol with adapter) sumatriptan (SUMAtriptan 50 mg Tab) Procedures Performed Rotator cuff repair, wisdom teeth extraction. Discharge Vitals Heart Rate (Peripheral) 83 Respiratory Rate 18 Blood Pressure 138/84 Height 164.5 cm Height 65 in Weight 126 kg Weight 277.2 lb BMI 46.56 What to do next Scheduled Follow-Up Appointments Friday 8:20 AM EDT With: Where: [address] [id number]- Friday 7:40 AM EDT With: YEISON SWANSON CNP Where: [address] [address]- You Need to Complete the Following CBC w/ Auto Diff, Blood, Routine collect, 09/29/23, Order for future visit, Lab Collect, Encounter to establish care BMI 45.0-49.9, adult, Print Label By Order Location Comprehensive Metabolic Panel, Blood, Routine collect, 09/29/23, Order for future visit, Lab Collect, Encounter to establish care BMI 45.0-49.9, adult Insulin resistance, Print Label By Order Location Lipid Panel, Blood, Routine collect, 09/29/23, Order for future visit, Lab Collect, Encounter to establish care BMI 45.0-49.9, adult, Print Label By Order Location TSH With T4fr Reflex, Blood, Routine collect, 09/29/23, Order for future visit, Lab Collect, Encounter to establish care BMI 45.0-49.9, adult, Print Label By Order Location Medications What How Much When Instructions Unchanged budesonide-formoterol (Symbicort 160/ 4.5 inhalation aerosol with adapter) 2 Puffs Inhalation 2 times a day Unchanged sumatriptan (SUMAtriptan 50 mg Tab) TAKE 1 TABLET BY MOUTH AT ONSET OF MIGRAINE. MAY REPEAT ONCE AFTER 2 HOURS IF NEEDED. DO not exceed TWO tabs/ day. Allergies Toradol (Hives) codeine (Rash) metFORMIN (hives) Problems Ongoing - Any problem that you are currently receiving treatment for. BMI 45.0-49.9, adult Smoker Historical - Any problem that you are no longer receiving treatment for. Arthritis Depression Gastric ulcer HTN - Hypertension Hypoglycemia Panic disorder PTSD - Post-traumatic stress disorder Patient Survey You may receive a survey via text or e-mail asking about your office visit. Please share your experience with us by completing your survey. We appreciate your feedback and thank you for choosing us for your care. Normal [facility] Family Medicine Office/Clini c Noteon 09-29-2023 Family Medicine Office/Clinic Note Family Medicine Office/Clinic Note Chief Complaint New Pt HPI Staff Susy is a 28 year old female presenting to establish care Establish Care: History: Any previous diagnosis: migraines. borderline diabetic. PTSD. Generalized Anxiety. History of seeing any specialist: Just started seeing counselor a cpl wks ago. When was your last doctors visit: June 2023 Last provider: Juanita Serrano . [facility] in [place] Any recent labs: Maybe October of last yr. Health Maintenance UTD: Colonoscopy: No Mammogram: No Pelvic/Pap: July 2022 Acute: insulin resistant needs labs done Current issues/complaints: Would like insulin & thyroid checked. (Constant thirst & hunger) History of Present Illness 28 year old patient presents today to establish care.She reports she has a prior diagnosis of insulin resistance and PCOS. She reports she is always hungry, has frequent urination, and is always thirsty. She states her previous provider attempted to have her on metFORMIN but found she was allergic to the medication. 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 She reports many of her family members have diabetes and she is hoping to get her blood sugar, thyroid levels checked. SHe reports she had a big breakfast at 3:30 AM today. She reports she does have minor shoulder and knee pain to be addressed at another visit. Review of Systems PHQ Score Initial Depression Screen Score: 0 SCORE Constitutional: no fever, no chills, no sweats, no weakness Skin: no Jaundice, no rash, no lesions, nopetechiae ENMT: no ear pain, no sore throat, no congestion, no hoarseness Respiratory: no shortness of breath, no cough, no orthopnea, no wheezing Cardiovascular: no chest pain, no palpitations, no edema Gastrointestinal: no nausea, no vomiting, no diarrhea, no GI bleeding Genitourinary: no dysuria, no hematuria, no discharge, no pain Musculoskeletal: no back pain, no trauma; knee pain Neurologic: no headache, no dizziness, no numbness, no weakness Psychiatric: no sleeping problems, no irritability, no mood swings/depression. Heme/Lymph: no bleeding tendency, no bruising tendency, no petechiae, no swollen nodes Allergy/Immunologic: no seasonal allergies, no food allergies, no recurrent infections, no impaired immunity Additional ROS info: Except as noted in the above Review of Systems and in the History of Present Illness all other systems have been reviewed and are negative or noncontributory. Physical Exam Vitals & Measurements HR: 83(Peripheral) RR: 18 BP: 138/84 SpO2: 98% HT: 65 in HT: 164.5 cm WT: 126 kg WT: 277.2 lb BMI: 46.56 General: alert, no acute distress Skin: warm, dry Head: no trauma, normocephalic Neck: Trachea midline, no adenopathy, no tenderness Eye: normal conjunctiva, sclera clear ENMT: TM's clear, oral mucosa moist, no pharyngeal erythema or exudate Cardiovascular: regular rate and rhythm, normal peripheral perfusion Respiratory: Lungs CTA, respirations non labored Chest wall: no deformity. Gastrointestinal: soft, non distended, no tenderness, no guarding. Back: No tenderness, Normal ROM, Normal alignment. Extremities: no deformity, no trauma Neurological: oriented x 4, LOC appropriate for age, CN II-XII intact, motor strength equal & normal bilaterally, sensation equal & normal bilaterally, speech normal Psychiatric: cooperative, affect appropriate for age, normal judgement, normal psychiatric thoughts. Assessment/Plan 1. Insulin resistance (E88.819: Insulin resistance, unspecified) Patient reports previous diagnosis of insulin resistance and PCOS Awaiting laboratory results f/u in 2 weeks Ordered: Body Mass Index (BMI) documented 3008F Comprehensive Metabolic Panel [facility] Internal Ambulatory Referral 2. Encounter to establish care (Z76.89: Persons encountering health services in other specified circumstances) Ordered: Body Mass Index (BMI) documented 3008F Body Mass Index (BMI) documented 3008F CBC w/ Auto Diff Comprehensive Metabolic Panel Current tobacco smoker 1034F Depression Screening Negative 3352F Discharge medications reconciled with current medications in outpatient record 1111F [facility] Internal Ambulatory Referral Lipid Panel TSH With T4fr Reflex 3. BMI 45.0-49.9, adult (Z68.42: Body mass index [BMI] 45.0-49.9, adult) The standard range for ages 18 and older is >=18.5 and < 25 kg/m2. Your BMI today was above this range, this falls in the overweight to obese category and there are medical benefits to weight loss. We can offer counselling, referral, and/or medical support in addressing this problem. Your BMI and weight management will be followed at subsequent visits. Ordered: Body Mass Index (BMI) documented 3008F CBC w/ Auto Diff Comprehensive Metabolic Panel [facility] Internal Ambulatory Referral Lipid Panel TSH With T4fr Reflex 4. Smoker (F17.200: Nicotine dependence, unspecified, uncomplicated) Discu (more content not included)... [facility] Comment on above: Result Comment: Elec tronically Signed By: YEISON SWANSON CNP\.linsey\Date and Time Signed: 09/29/23 10:47 EDT Ambulatory Visit Summaryon 0 09-02-2023 Ambulatory Visit Summary Ambulatory Visit Summary SUSY DIAZ :1995 Visit Date:09/02/2023 Ambulatory Visit Instructions Your Diagnosis Pain in joint of left knee BMI 45.0-49.9, adult Morbidly obese Your Care Team Attending Physician - Kala CALI-CEASAR, Flakito Cano [facility], GENERIC This Is Your Medications List Contact prescribing physician if questions or concerns budesonide-formoterol (Symbicort 160/4.5 inhalation aerosol with adapter) Procedures Performed Rotator cuff repair, wisdom teeth extraction. Discharge Vitals Temperature (Oral) 37 ?C Heart Rate (Peripheral) 73 Respiratory Rate 20 Blood Pressure 118/78 Height 167 cm Height 66 in Weight 125.8 kg Weight 276.76 lb BMI 45.11 Medications What How Much When Instructions Unchanged budesonide-formoterol (Symbicort 160/ 4.5 inhalation aerosol with adapter) 2 Puffs Inhalation 2 times a day Contact prescribing physician if questions or concerns Allergies Toradol (Hives) codeine (Rash) metFORMIN (hives) Problems Ongoing - Any problem that you are currently receiving treatment for. Smoker Historical - Any problem that you are no longer receiving treatment for. Arthritis Depression Gastric ulcer HTN - Hypertension Hypoglycemia Panic disorder PTSD - Post-traumatic stress disorder Patient Survey You may receive a survey via text or e-mail asking about your office visit. Please share your experience with us by completing your survey. We appreciate your feedback and thank you for choosing us for your care. Education Materials BMI for Adults What is BMI? Body mass index (BMI) is a number that is calculated from a person's weight and height. BMI can help estimate how much of a person's weight is composed of fat. BMI does not measure body fat directly. Rather, it is an alternative to procedures that directly measure body fat, which can be difficult and expensive. BMI can help identify people who may be at higher risk for certain medical problems. What are BMI measurements used for? BMI is used as a screening tool to identify possible weight problems. It helps determine whether a person is obese, overweight, a healthy weight, or underweight. BMI is useful for: ? Identifying a weight problem that may be related to a medical condition or may increase the risk for medical problems. ? Promoting changes, such as changes in diet and exercise, to help reach a healthy weight. BMI screening can be repeated to see if these changes are working. How is BMI calculated? BMI involves measuring your weight in relation to your height. Both height and weight are measured, and the BMI is calculated from those numbers. This can be done either in [place] or metric measurements. Note that charts and online BMI calculators are available to help you find your BMI quickly and easily without having to do these calculations yourself. To calculate your BMI in [place] measurements: 1. Measure your weight in pounds (lb). 2. Multiply the number of pounds by 703. ? For example, for a person who weighs 180 lb, multiply that number by 703, which equals 126,540. 3. Measure your height in inches. Then multiply that number by itself to get a measurement called inches squared. ? For example, for a person who is 70 inches tall, the inches squared measurement is 70 inches x 70 inches, which equals 4,900 inches squared. 4. Divide the total from step 2 (number of lb x 703) by the total from step 3 (inches squared): 126,540 ? 4,900 = 25.8. This is your BMI. To calculate your BMI in metric measurements: 1. Measure your weight in kilograms (kg). 2. Measure your height in meters (m). Then multiply that number by itself to get a measurement called meters squared. ? For example, for a person who is 1.75 m tall, the meters squared measurement is 1.75 m x 1.75 m, which is equal to 3.1 meters squared. 3. Divide the number of kilograms (your weight) by the meters squared number. In this example: 70 ? 3.1 = 22.6. This is your BMI. What do the results mean? BMI charts are used to identify whether you are underweight, normal weight, overweight, or obese. The following guidelines will be used: ? Underweight: BMI less than 18.5. ? Normal weight: BMI between 18.5 and 24.9. ? Overweight: BMI between 25 and 29.9. ? Obese: BMI of 30 or above. Keep these notes in mind: ? Weight includes both fat and muscle, so someone with a muscular build, such as an athlete, may have a BMI that is higher than 24.9. In cases like these, BMI is not an accurate measure of body fat. ? To determine if excess body fat is the cause of a BMI of 25 or higher, further assessments may need to be done by a health care provider. ? BMI is usually interpreted in the same way for men and women. Where to find more information For more information about BMI, inc (more content not included)... Normal [facility] Family Medicine Office/Clini c Noteon 09-02-2023 Family Medicine Office/Clinic Note Family Medicine Office/Clinic Note Chief Complaint Left knee pain HPI Staff 28 year old female present for left knee pain. Pt states that at times she feels the knee give out while walking. Pt states there is no known injury. Onset: 1 week OTC: Ibuprofen/Tylenol History of Present Illness Reviewed and agree with above documented HPI by medical record retrieval specialist. Patient is a 28-year-old female who presents today with left knee pain. She states that sometimes it feels like her knee gives out while she is walking. 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 Patient denies falling onto that knee or anything striking that knee. Patient states that she has iliotibial band syndrome so she commonly gets these pains. She states that she just went to come in today to make sure she had not done anything unusual to her knee other than the common symptoms of her syndrome. She states she usually goes to orthopedics and they sent her onto physical therapy. Patient states she was able to come into the exam room under her own power without any limp. Patient was able to get onto the exam table with little to no effort. Patient states she takes Tylenol ibuprofen for pain. Patient has an allergy to Toradol, codeine, metformin. Review of Systems PHQ Score Initial Depression Screen Score: 0 SCORE Physical Exam Vitals & Measurements T: 37 ?C(Oral) HR: 73(Peripheral) RR: 20 BP: 118/78 SpO2: 98% HT: 66 in HT: 167 cm WT: 125.8 kg WT: 276.76 lb BMI: 45.11 General: Obese white female, in no acute distress, sitting on exam table Lungs: Normal respiratory effort and clear to auscultation Cardio: regular rate and rhythm, no murmur Musculoskeletal: Slight tenderness with palpation of knee joint. No deformity or scoliosis noted. Normal range of motion. Joints normal. No erythema, edema, effusion, or ecchymosis. Negative drawer test. Extremity: No clubbing, cyanosis, edema, or deformity, with normal ROM in both upper and lower bilateral extremities Neurologic: Grossly normal Skin: No rashes, ulcerations, or suspicious lesions Mental Status: Alert and oriented x3. Normal speech and thought content, normal mood and affect Assessment/Plan 1. Pain in joint of left knee (M25.562: Pain in left knee) Patient is advised to continue the use of ibuprofen/Tylenol. Patient is advised to follow-up with Ortho which she states she is fine with doing. Patient advised she probably needs physical therapy of which Ortho can refer her. Patient was advised that if she could reduce her weight somewhat then this may take stress off of her knee and possibly prevent future flareups of her iliotibial band syndrome. Patient is advised that she can ice her knee for 20 minutes on then off for 40 minutes. Patient may also use a heating pad in the same manner, 20 minutes on then 40 minutes off. Patient understands and is agreeable to treatment plan. 2. BMI 45.0-49.9, adult (Z68.42: Body mass index [BMI] 45.0-49.9, adult) The standard range for ages 18 and older is >=18.5 and < 25 kg/m2. Your BMI today was above this range, this falls in the overweight to obese category and there are medical benefits to weight loss. We can offer counselling, referral, and/or medical support in addressing this problem. Your BMI and weight management will be followed at subsequent visits. 3. Morbidly obese (E66.01: Morbid (severe) obesity due to excess calories) Same as above Portions of this record may have been created with voice recognition artificial intelligence software, specifically [employer], [employer] and or [employer]. Occasional wrong-word or `[id number]-[id number]? substitutions may have occurred due to the inherent limitations of voice recognition and artificial intelligence software. Follow-up No qualifying data available Patient Education BMI for Adults Acute Knee Pain, Adult, Hfah-mk-Pwds Problem List/Past Medical History Ongoing Smoker Historical Arthritis Depression Gastric ulcer HTN - Hypertension Hypoglycemia Panic disorder PTSD - Post-traumatic stress disorder Procedure/Surgical History Rotator cuff repair, wisdom teeth extraction. Medications Symbicort 160/4.5 inhalation aerosol with adapter, 2 puff(s), Inhalation, BID Allergies Toradol (Hives) codeine (Rash) metFORMIN (hives) Social History Alcohol - Denies Alcohol Use, 12/21/2016 Current, Beer, 1-2 times per month, 08/30/2019 1-2 times per year, 04/30/2018 Current, 1-2 times per year, 11/15/2017 Substance Abuse - Denies Substance Abuse, 12/21/2016 Current, Marijuana, 1-2 times per month, 08/30/2019 Current, Marijuana, 04/30/2018 Current, 11/15/2017 Tobacco - Denies Tobacco Use, 06/26/2017 Former smoker, quit more than 30 days ago Tobacco Use:. Cigarettes, 09/02/2023 Family History Cervical cancer: Sister. Diabetes mellitus type 1: Mother and Father. Hypertension: Mother. Ovarian cancer: Sister. Immuniz (more content not included)... [facility] Comment on above: Result Comment: Elec tronically Signed By: Kala GRULLON, Flakito Cano\.br\Date and Time Signed: 09/02/23 09:36 EDT Care Home Documentson 04-02-2023 Care Home Documents [id number] [facility] XR KNEE LEFT (MIN 4 VIEWS)on 01-03-2023 XR KNEE LEFT (MIN 4 VIEWS) History: Left knee pain Comparison: 11/03/20 Findings: 4 weight-bearing views (AP, lat, notch, sunrise) of the left knee demonstrating mild medial joint space narrowing. No significant arthritic changes seen throughout. No acute subluxation/dislocation. Impression: Unremarkable films of the left knee Interpreted by: Whitney Pack DO Boothby, Benjamin C, DO Signed by: Sravanthi Bal DO 01/03/[address] [facility] Measles (Rubeola) Imon 12-02 Measles (Rubeola) Im 4.13 Normal >1.09 [facility] Comment on above: Result Comment: Interpretation: IMMUNE Reference Range: <0.91 Not Immune 0.91-1.09 Equivocal >1.09 Immune Performed By: #### C BC, INSU, FERI, FEBC #### [facility] [employer] [address] [place] [address] Hall Clerk: Moisés Harp MD Mumps,Immun,Abon 12-02-2022 Mumps,Immun,Ab 3.39 Normal >1.09 [facility] Comment on above: Result Comment: Interpretation: IMMUNE Reference Range: <0.91 Not Immune 0.91-1.09 Equivocal >1.09 Immune Performed By: #### C BC, INSU, FERI, FEBC #### [facility] [address] [place], [place] [id number] Hall Clerk: Moisés Harp MD Laboratory - Microbiology an d Antimicrobial susceptibilityon 11-29-2022 Rubella virus IgG Qn (S) 31.32 [IU]/mL [facility] Comment on above: Note: REFERENCE RANG E:<5.0 NON-REACTIVE (non-immune)5.0 TO 9.9 EQUIVOCAL>=10.0 REACTIVE (immune)Responsible Observer: CEEV AUTOFILE ([id number]) No Panel Informationon 11-29 Measles (Rubeola) Im 4.13 (>1.09 ) [facility] Comment on above: Note: Interpretation :IMMUNEReference Range:<0.91 Not Immune0.91-1.09 Equivocal>1.09 ImmuneResponsible Observer: ERICKA PADRON ([id number]) Mumps,Immun,Ab 3.39 (>1.09 ) [facility] Comment on above: Note: Interpretation :IMMUNEReference Range:<0.91 Not Immune0.91-1.09 Equivocal>1.09 ImmuneResponsible Observer: ERICKA PADRON ([id number]) Reported Physicians See Note [facility] Comment on above: Note: Reported Physi cians:Ordering: Juanita LewisAttending: Juanita LewisReferring: Juanita Lewis Rubella Ab, IgGon 11-29-2022 Rubella Ab, IgG 31.32 IU/mL Normal [facility] Comment on above: Result Comment: REFERENCE RANGE: <5.0 NON-REACTIVE (non-immune) 5.0 TO 9.9 EQUIVOCAL >=10.0 REACTIVE (immune) Performed By: #### C BC, INSU, FERI, FEBC #### [facility] [address] [place] [address] Hall Clerk: MD SHELBY Porteron 11-11-2022 EDNURS Abnormal lab reviewe d with ANDREW elizalde. She reports no further action needed. Hailey Cook RN 11/12/22 1312 Normal [facility] EDNURS Chart accessed for positive manuela result sent this day. Will review with ed provider for further orders. Hailey Cook RN 11/12/22 1227 Normal [facility] EDPROVon 11-11-2022 EDPROV HPI Chief Complaint Patient presents with Abdominal Pain C/O RLQ pain that just started this morning. Pt states I'm pretty sure it's BV but want to get it checked out . patient is a 27-year-old female with history of PCOS, prediabetes, bipolar disorder, PTSD presents to ED for 3 days of cottage cheese discharge and mild right lower abdominal pain. Pain began this morning associated with increased urinary frequency and dysuria with burning and itching. Also reports having 3 days of cottage cheese discharge. Patient states she was being treated for upper respiratory infection with Augmentin for the past 6 days. Patient denies any nausea, vomiting, fevers, chills, anorexia, flank pain, vaginal bleeding. Patient is in a same-sex relationship and does use sex toys which she says she has not washed. Buchanan Coma Scale Score: 15 Patient History Past Medical History: Diagnosis Date Anxiety Asthma Bipolar 1 disorder ([facility]) PTSD (post-traumatic stress disorder) History reviewed. No pertinent surgical history. No family history on file. Social History Tobacco Use Smoking status: Former Types: Cigarettes Smokeless tobacco: Never Vaping Use Vaping Use: Every day Substances: Nicotine Substance Use Topics Alcohol use: Yes Drug use: Not Currently Review of Systems Review of Systems Constitutional: Negative for activity change, chills, diaphoresis and fever. HENT: Negative for congestion, sinus pain and sore throat. Eyes: Negative for pain. Respiratory: Negative for cough, chest tightness, shortness of breath and wheezing. Cardiovascular: Negative for chest pain and leg swelling. Gastrointestinal: Negative for abdominal pain, constipation, diarrhea, nausea and vomiting. Genitourinary: Positive for vaginal discharge. Negative for dysuria, flank pain, frequency, pelvic pain, urgency, vaginal bleeding and vaginal pain. Musculoskeletal: Negative for back pain, myalgias and neck stiffness. Skin: Negative for rash and wound. Neurological: Negative for syncope, weakness, light-headedness and headaches. Hematological: Negative for adenopathy. Does not bruise/bleed easily. Psychiatric/Behavioral: Negative. All other systems reviewed and are negative. Physical Exam ED Triage Vitals Temp Heart Rate Resp BP 11/10/22234311/10/22234311/10/22234211/10/222343 36.7 ???C (98.1 ???F) 85 16 (!) 112/94 SpO2 Temp src Heart Rate Source Patient Position 11/10/222343 -- -- 11/10/222342 100 % Sitting BP Location FiO2 (%) 11/10/222342 -- Left arm Physical Exam Vitals and nursing note reviewed. Constitutional: General: She is not in acute distress. Appearance: She is well-developed. She is obese. HENT: Head: Normocephalic and atraumatic. Mouth/Throat: Mouth: Mucous membranes are moist. Pharynx: Oropharynx is clear. Eyes: Conjunctiva/sclera: Conjunctivae normal. Cardiovascular: Rate and Rhythm: Normal rate and regular rhythm. Heart sounds: No murmur heard. Pulmonary: Effort: Pulmonary effort is normal. No respiratory distress. Breath sounds: Normal breath sounds. Abdominal: Palpations: Abdomen is soft. Tenderness: There is no abdominal tenderness. Musculoskeletal: General: No swelling. Cervical back: Neck supple. Skin: General: Skin is warm and dry. Capillary Refill: Capillary refill takes less than 2 seconds. Neurological: Mental Status: She is alert. Psychiatric: Mood and Affect: Mood normal. Procedures ED Course & MDM Diagnoses as of 11/11/22 0127 Vaginal yeast infection Lower abdominal pain Medical Decision Making Attestion Verenice Llanes MD 11/21/22 0027 Normal [facility] URINALYSIS MICROSCOPIC WITH REFLEX CULTUREon 11-11-2022 CASTS IN URINE Normal [facility] Comment on above: Performed By: #### L [id number] #### [facility] ([facility]) [address] [place] [address] CRYSTALS IN URINE Normal [facility] Comment on above: Performed By: #### L [id number] #### [facility] ([facility]) [address] [place] [address] MUCUS (#/HPF) IN URINE SEDIMENT Occasional Normal None Seen, Occasional, Few [facility] Comment on above: Performed By: #### L [id number] #### [facility] ([facility]) [address] [place] [address] OTHER MICROSCOPIC ELEMENTS Normal [facility] Comment on above: Performed By: #### L [id number] #### [facility] ([facility]) [address] [place] [address] RBC (#/HPF) IN URINE SEDIMENT 51-100 Abnormal None Seen [facility] Comment on above: Performed By: #### L [id number] #### [facility] ([facility]) [address] [place] [address] SQUAMOUS EPITHELIAL CELLS (#/HPF) IN URINE SEDIMENT Many Abnormal None Seen, Occasional [facility] Comment on above: Performed By: #### L [id number] #### [facility] ([facility]) [address] [place] [address] WBC (LEUKOCYTE) (#/HPF) IN URINE SEDIMENT 6-10 Abnormal None Seen [facility] Comment on above: Performed By: #### L [id number] #### [facility] ([facility]) [address] [place] [address] URINALYSIS WITH REFLEX CULTU REon 11-11-2022 BILIRUBIN, TOTAL PRESENCE IN URINE Negative Normal Negative [facility] Comment on above: Performed By: #### L [id number] #### [facility] ([facility]) [address] [place] [address] Clarity (U) Slightly Cloudy Abnormal Clear [facility] Comment on above: Performed By: #### L [id number] #### [facility] ([facility]) [address] [place] [address] Color (U) Yellow Normal Yellow [facility] Comment on above: Performed By: #### L [id number] #### [facility] ([facility]) [address] [place] [address] Glucose (U) [Mass/Vol] Negative Normal Negative [facility] Comment on above: Performed By: #### L [id number] #### [facility] ([facility]) [address] [place] [address] HEMOGLOBIN PRESENCE IN URINE Large Abnormal Negative [facility] Comment on above: Performed By: #### L [id number] #### [facility] ([facility]) [address] [place] [address] Ketones Ql (U) Negative Normal Negative [facility] Comment on above: Performed By: #### L [id number] #### [facility] ([facility]) [address] [place] [address] LEUKOCYTE ESTERASE PRESENCE IN URINE BY TEST STRIP Moderate Abnormal Negative [facility] Comment on above: Performed By: #### L [id number] #### [facility] ([facility]) [address] [place] [address] NITRITE PRESENCE IN URINE Negative Normal Negative [facility] Comment on above: Performed By: #### L [id number] #### [facility] ([facility]) [address] [place] [address] pH (U) 6.0 [pH] Normal 5.0-8.0 [facility] Comment on above: Performed By: #### L [id number] #### [facility] ([facility]) [address] [place] [address] Protein (U) [Mass/Vol] Negative Normal Negative [facility] Comment on above: Performed By: #### L [id number] #### [facility] ([facility]) [address] [place] [address] Specific gravity (U) [Rel density] 1.006 Low 1.015-1.020 [facility] Comment on above: Performed By: #### L [id number] #### [facility] ([facility]) [address] [place] [address] URINE CULTURE, ROUTINEon Bacteria identified Cx Nom (U) >100,000 CFU/ML Uro-Genital Shelbie Normal [facility] Comment on above: Performed By: #### L [id number] #### [facility] ([facility]) [address] [place] [address] VAGINITIS DNA PROBEon 2022 MANUELA SPECIES Positive Abnormal Negative [facility] Comment on above: Order Comment: Testi ng methodology is a DNA probe test intended for use in the detection and identification of Manuela species, Gardnerella Vaginalis and Trichomonas Vaginalis nucleic acid vaginal fluid specimens from patients with symptoms of Vaginitis/Vaginosis. Performed By: #### L [id number] #### [facility] ([facility]) [address] [place] [address] GARDNERELLA VAGINALIS BV Negative Normal Negative [facility] Comment on above: Order Comment: Testi ng methodology is a DNA probe test intended for use in the detection and identification of Manuela species, Gardnerella Vaginalis and Trichomonas Vaginalis nucleic acid vaginal fluid specimens from patients with symptoms of Vaginitis/Vaginosis. Performed By: #### L [id number] #### [facility] ([facility]) [address] [place] [address] TRICHOMONAS VAGINALIS Negative Normal Negative [facility] Comment on above: Order Comment: Testi ng methodology is a DNA probe test intended for use in the detection and identification of Manuela species, Gardnerella Vaginalis and Trichomonas Vaginalis nucleic acid vaginal fluid specimens from patients with symptoms of Vaginitis/Vaginosis. Performed By: #### L [id number] #### [facility] ([facility]) [address] [place] [address] HCG, ,Urineon 10-31 Beta HCG ( test) Ql (U) Negative Normal NEG [facility] Comment on above: Result Comment: Spec imens with hCG levels near the threshold of the test (25 mIU/mL) may give a negative or indeterminate result. In such cases, another test should be performed with a new specimen in 48-72 hours. If early is suspected clinically in this setting, correlation with quantitative serum b-hCG level is suggested. Performed By: #### U HCG #### [facility] [address] [place] [address] Hall Clerk: Rafiq Fernández DO , Urineon 3 HCG ( test) Ql (U) Negative NEGATIVE [facility] Comment on above: Specimens with hCG l evels near the threshold of the test (25 mIU/mL) may give a negative or indeterminate result. In such cases, another test should be performed with a new specimen in 48-72 hours. If early is suspected clinically in this setting, correlation with quantitative serum b-hCG level is suggested. [facility] Factor V Mutationon 10-23-19 23 F 5 SPECIMEN Whole Blood Normal [facility] Comment on above: Performed By: #### A [id number] #### [facility] [employer] [address] [place] [address] Hall Clerk: Sloan Dias MD FACTOR 5 MUTATION Negative Normal [facility] Comment on above: Result Comment: (NOT E) Indication for testing: Assess genetic risk for thrombosis. NEGATIVE: The factor V Leiden variant, c.1601G>A; p.[id number], was not detected. This does not exclude a genetic cause for thrombophilia. If this individual has had a previous venous thromboembolism, this negative result is unlikely to significantly reduce the risk for recurrence; thus, future clinical management to reduce recurrence should not be altered. This result has been reviewed and approved by Em Ibrahim M.D., Ph.D. BACKGROUND INFORMATION: Factor V Leiden (F5) R506Q Mutation CHARACTERISTICS: Venous thromboembolism (VTE) is multifactorial caused by a combination of genetic and environmental factors. The Factor V Leiden (FVL) variant is the most common cause of inherited VTEs, accounting for over 90 percent of activated protein C (APC) resistance. Because the FVL variant eliminates the APC cleavage site, factor V is inactivated slower, thus persisting longer in blood circulation, leading to more thrombin production. Other genetic risk factors for VTE include, male sex and variants in antithrombin, protein C, protein S, or factor XIII. Non-genetic risk factors include, age, smoking, prolonged immobilization, malignant neoplasms, surgery, , oral contraceptives, estrogen replacement therapy, tamoxifen and raloxifene therapy. INCIDENCE OF FACTOR V LEIDEN VARIANT: Approximately 5 percent of Caucasians, 2 percent of Hispanics, 1 percent of Americans and 0.5 percent of Asians are heterozygous; homozygosity occurs in 1 in 1500 Caucasians. INHERITANCE: Semi-dominant; both heterozygotes and homozygotes are at increased risk for VTE. PENETRANCE: Lifetime risk of VTE is 10 percent for heterozygotes and 80 percent of homozygotes. CAUSE: The pathogenic gain of function in the F5 gene variant c.1601G>A (p.Rqj486Als). Legacy nomenclature: R506Q (1691G>A) CLINICAL SENSITIVITY: 20-50 percent of individuals with an isolated VTE have the FVL variant. METHODOLOGY: Polymerase chain reaction and fluorescence monitoring. ANALYTICAL SENSITIVITY AND SPECIFICITY: 99 percent. LIMITATIONS: Diagnostic errors can occur due to rare sequence variations. F5 gene mutations, other than p.[id number], will not be detected. This test was developed and its performance characteristics determined by [facility]. It has not been cleared or approved by the US Food and Drug Administration. This test was performed in a CLIA certified laboratory and is intended for clinical purposes. Counseling and informed consent are recommended for genetic testing. Consent forms are available online. Performed By: [facility] [address] [place] [address] Publicity Writer: Colton Rodriguez MD, PhD CLIA Number: [id number] Performed By: #### A F5MUT #### [facility] [address] [place] [address] Hall Clerk: Sloan Dias MD Group A Strep DNAon 10-20-19 Group A Strep DNA Specimen Description .THROAT SWAB Direct Exam Negative: Specimen negative for Streptococcus pyogenes by DNA amplification. Report Status FINAL 10/19/2022 [facility] Comment on above: Performed By: #### C BC, INSU, FERI, FEBC #### [address] [address] Hall Clerk: Moisés Harp MD No Panel Informationon 10-18 Group A Strep DNA See Note [facility] Comment on above: Note: Specimen Descr iption .THROAT SWABDirect Exam Negative: Specimen negative for Streptococcus pyogenes by DNA amplification.Report Status FINAL 10/19/2022Responsible Observer: JEFFERSON CONCEPCION ([id number]) Reported Physicians See Note [facility] Comment on above: Note: Reported Physi cians:Ordering: Kb PelaezAttending: Kb PelaezReferring: Kb Pelaez CBCon 10-17-2022 Platelet, Fluoresc. 301 k/uL Normal 138-453 [facility] Comment on above: Performed By: #### C SHILOH MCDONOUGH FERI, FEBC #### [facility] [employer] [address] [place] [address] Hall Clerk: Moisés Harp MD PLT, Immature Fract. 10.3 % Normal 1.1-10.3 [facility] Comment on above: Performed By: #### C SHILOH MCDONOUGH FERI, FEBC #### [facility] [address] [place] [address] Hall Clerk: Moisés Harp MD Erythrocyte distribution width (RBC) [Ratio] 19.3 % High 11.8-14.4 [facility] Comment on above: Performed By: #### SHILOH TOBIAS FERI, FEBC #### [facility] [address] [place] [address] Hall Clerk: Moisés Harp MD Hematocrit (Bld) [Volume fraction] 42.9 % Normal 36.3-47.1 [facility] Comment on above: Performed By: #### C SHILOH MCDONOUGH FERI, FEBC #### [facility] [address] [place] [address] Hall Clerk: Moisés Harp MD Hemoglobin (Bld) [Mass/Vol] 12.6 g/dL Normal 11.9-15.1 [facility] Comment on above: Performed By: #### C SHILOH MCDONOUGH FERI, FEBC #### [address] [address] Hall Clerk: Moisés Harp MD MCH (RBC) [Entitic mass] 22.9 pg Low 25.2-33.5 [facility] Comment on above: Performed By: #### C BCSHILOH FERI, FEBC #### [address] [address] Hall Clerk: Moisés Harp MD MCHC (RBC) [Mass/Vol] 29.4 g/dL Normal 28.4-34.8 [facility] Comment on above: Performed By: #### C SHILOH MCDONOUGH FERRosa, FEBC #### [address] [address] Hall Clerk: Moisés Harp MD MCV (RBC) [Entitic vol] 78.0 fL Low 82.6-102.9 [facility] Comment on above: Performed By: #### C SHILOH MCDONOUGH FERI, FEBC #### [address] [address] Hall Clerk: Moisés Harp MD NRBC Automated 0.0 per [address] [facility] Comment on above: Performed By: #### C SHILOH MCDONOUGH FERI, FEBC #### [address] [address] Hall Clerk: Moisés Harp MD Platelet Count See Reflexed IPF Result Normal 138-453 [facility] Comment on above: Performed By: #### C SHILOH MCDONOUGH FERI, FEBC #### [address] [address] Hall Clerk: Moisés Harp MD RBC (Bld) [#/Vol] 5.50 10*6/uL High 3.95-5.11 [facility] Comment on above: Performed By: #### C CEASAR, MATT MATAMOROS, FEBC #### [facility] [address] [place], [place] [phone] Hall Clerk: Moisés Harp MD WBC (Bld) [#/Vol] 9.9 10*3/uL Normal 3.5-11.3 [facility] Comment on above: Performed By: #### C CEASAR, MATT MATAMOROS FEBC #### [facility] [address] [place], [place] [id number] Hall Clerk: Moisés Harp MD Erythrocyte distribution width (RBC) [Ratio] 19.3 % High 11.8 - 14.4 % [facility] Hematocrit (Bld) [Volume fraction] 42.9 % 36.3 - 47.1 % [facility] Hemoglobin (Bld) [Mass/Vol] 12.6 g/dL 11.9 - 15.1 g/dL [facility] Interpretation and review of laboratory results Abnormal [facility] MCH (RBC) [Entitic mass] 22.9 pg Low 25.2 - 33.5 pg [facility] MCHC (RBC) [Mass/Vol] 29.4 g/dL 28.4 - 34.8 g/dL [facility] MCV (RBC) [Entitic vol] 78.0 fL Low 82.6 - 102.9 fL [facility] Nucleated RBC/100 WBC (Bld) [Ratio] 0.0 % 0.0 per 100 WBC [facility] Platelet, Fluorescence 301 [facility] Platelets (Bld) [#/Vol] See Reflexed IPF Result [facility] Platelets reticulated/100 platelets Auto (Bld) 10.3 % 1.1 - 10.3 % [facility] RBC (Bld) [#/Vol] 5.50 10*6/uL High 3.95 - 5.1 1 m/uL [facility] WBC other (Bld) [#/Vol] 9.9 [facility] Ferritinon 10-17-2022 Ferritin [Mass/Vol] 37 ng/mL Normal 13-150 [facility] Comment on above: Performed By: #### C BC, INSU, FERI, FEBC #### [facility] [employer] [facility] [address] [place] [address] Hall Clerk: Moisés Harp MD Ferritin [Mass/Vol] 37 ng/mL 13 - 150 ng/mL [facility] Insulinon 10-17-2022 Insulin 25.4 mU/L Normal [facility] Comment on above: Performed By: #### C BC, INSU, FERI, FEBC #### [facility] [employer] [facility] [address] [place] [phone] Hall Clerk: Moisés Harp MD Reference Range Normal [facility] Comment on above: Result Comment: Fast in.6-24.9 30 min: 20-112 60 min: 29-88 90 min: 26-84 120 min: 22-79 Performed By: #### C BC, INSU, FERI, FEBC #### [facility] [address] [place] [address] Hall Clerk: Moisés Harp MD Insulin, totalon 10-17-2022 Insulin 25.4 mU/L [facility] Insulin Reference Range: [facility] Comment on above: Fastin.6-24.9 30 min: 20-112 60 min: 29-88 90 min: 26-84 120 min: 22-79 [facility] Iron Binding Cap.on 10-18-19 23 % Fe Saturation 8 % Low 20-55 [facility] Comment on above: Performed By: #### C BC, INSU, FERI, FEBC #### [facility] [employer] [facility] [address] [place] [address] Hall Clerk: Moisés Harp MD Iron [Mass/Vol] 30 ug/dL Low 37-145 [facility] Comment on above: Performed By: #### C BC, INSU, FERI, FEBC #### [employer] [address] [place] [address] Hall Clerk: Moisés Harp MD Total Fe Binding Cap 371 ug/dL Normal 250-450 [facility] Comment on above: Performed By: #### C BC, INSU, FERI, FEBC #### [facility] [address] [place] [address] Hall Clerk: Moisés Harp MD Unbound Fe Bind Cap 341 ug/dL Normal 112-347 [facility] Comment on above: Performed By: #### C BC, INSU, FERI, FEBC #### [facility] [address] [place] [address] Hall Clerk: Moisés Harp MD Iron and TIBCon 10-17-2022 Interpretation and review of laboratory results Abnormal [facility] Iron [Mass/Vol] 30 ug/dL Low 37 - 145 ug/dL [facility] Iron binding capacity [Mass/Vol] 371 ug/dL 250 - 450 ug/dL [facility] Iron saturation [Mass fraction] 8 % Low 20 - 55 % [facility] UIBC 341 ug/dL 112 - 347 ug/dL [facility] Laboratory - Chemistry and C hemistry - challengeon 10-17-2022 Ferritin [Mass/Vol] 37 ng/mL (13-150 ) [facility] Comment on above: Note: Responsible Ob gravity meter observer: CEEV AUTOFILE ([id number]) Iron [Mass/Vol] 30 ug/dL Low (37-145 ) [facility] Comment on above: Note: Responsible Ob gravity meter observer: CEEV AUTOFILE ([id number]) Laboratory - Hematology and Cell countson 10-17-2022 Erythrocyte distribution width (RBC) [Ratio] 19.3 % High (11.8-14.4 ) [facility] Comment on above: Note: Responsible Ob gravity meter observer: RIKI WARD ([id number]) Hematocrit (Bld) [Volume fraction] 42.9 % (36.3-47.1 ) [facility] Comment on above: Note: Responsible Ob gravity meter observer: RIKI WARD ([id number]) Hemoglobin (Bld) [Mass/Vol] 12.6 g/dL (11.9-15.1 ) [facility] Comment on above: Note: Responsible Ob gravity meter observer: RIKI WARD ([id number]) MCH (RBC) [Entitic mass] 22.9 pg Low (25.2-33.5 ) [facility] Comment on above: Note: Responsible Ob gravity meter observer: RIKI WARD ([id number]) MCHC (RBC) [Mass/Vol] 29.4 g/dL (28.4-34.8 ) [facility] Comment on above: Note: Responsible Ob gravity meter observer: RIKI WARD ([id number]) MCV (RBC) [Entitic vol] 78.0 fL Low (82.6-102.9 ) [facility] Comment on above: Note: Responsible Ob gravity meter observer: RIKI WARD ([id number]) RBC (Bld) [#/Vol] 5.50 10*6/uL High (3.95-5.11 ) [facility] Comment on above: Note: Responsible Ob gravity meter observer: RIKI WARD ([id number]) WBC (Bld) [#/Vol] 9.9 10*3/uL (3.5-11.3 ) [facility] Comment on above: Note: Responsible Ob gravity meter observer: RIKI WARD ([id number]) No Panel Informationon 10-17 [facility] F 5 SPECIMEN Whole Blood [facility] Comment on above: Note: Responsible Ob gravity meter observer: [facility]UP ([id number]) FACTOR 5 MUTATION Negative [facility] Comment on above: Note: (NOTE)Indicati on for testing: Assess genetic risk for thrombosis.NEGATIVE: The factor V Leiden variant, c.1601G>A; p.[id number], wasnot detected. This does not exclude a genetic cause forthrombophilia. If this individual has had a previous venousthromboembolism, this negative result is unlikely to significantlyreduce the risk for recurrence; thus, future clinical managementto reduce recurrence should not be altered.This result has been reviewed and approved by Em Ibrahim M.D., Ph.D.BACKGROUND INFORMATION: Factor V Leiden (F5) R506Q MutationCHARACTERISTICS: Venous thromboembolism (VTE) is multifactorialcaused by a combination of genetic and environmental factors. TheFactor V Leiden (FVL) variant is the most common cause ofinherited VTEs, accounting for over 90 percent of activatedprotein C (APC) resistance. Because the FVL variant eliminates theAPC cleavage site, factor V is inactivated slower, thus persistinglonger in blood circulation, leading to more thrombin production.Other genetic risk factors for VTE include, male sex and variantsin antithrombin, protein C, protein S, or factor XIII. Non-geneticrisk factors include, age, smoking, prolonged immobilization,malignant neoplasms, surgery, , oral contraceptives,estrogen replacement therapy, tamoxifen and raloxifene therapy.INCIDENCE OF FACTOR V LEIDEN VARIANT: Approximately 5 percent ofCaucasians, 2 percent of Hispanics, 1 percent of Americansand 0.5 percent of Asians areheterozygous; homozygosity occurs in 1 in 1500 Caucasians.INHERITANCE: Semi-dominant; both heterozygotes and homozygotes areat increased risk for VTE.PENETRANCE: Lifetime risk of VTE is 10 percent for heterozygotesand 80 percent of homozygotes.CAUSE: The pathogenic gain of function in the F5 gene variantc.1601G>A (p.[id number]). Legacy nomenclature: R506Q (1691G>A)CLINICAL SENSITIVITY: 20-50 percent of individuals with anisolated VTE have the FVL variant.METHODOLOGY: Polymerase chain reaction and fluorescence monitoring.ANALYTICAL SENSITIVITY AND SPECIFICITY: 99 percent.LIMITATIONS: Diagnostic errors can occur due to rare sequencevariations. F5 gene mutations, other than p.Rzq477Jzl, will not bedetected.This test was developed and its performance characteristicsdetermined by [employer]. It has not been cleared orapproved by the [place] Food and Drug Administration. This test wasperformed in a CLIA certified laboratory and is intended forclinical purposes.Counseling and informed consent are recommended for genetictesting. Consent forms are available online.Performed By: [facility] [place] [id number] Director: Colton Rodriguez MD, PhDCLIA Number: [id number] Observer: VERENA CAZARES ([id number]) Reported Physicians See Note [facility] Comment on above: Note: Reported Physi cians:Ordering: Kb PelaezAttending: Kb PelaezReferring: Kb Pelaez % Fe Saturation 8 % Low (20-55 ) [facility] Comment on above: Note: Responsible Ob gravity meter observer: [employer] ([id number]) Insulin 25.4 mU/L [facility] Comment on above: Note: Responsible Ob gravity meter observer: CCE[facility] [employer]OFILE (300) NRBC Automated 0.0 per_100_WBC (0.0 ) [facility] Comment on above: Note: Responsible Ob gravity meter observer: RIKI WARD (0) Platelet Count See Reflexed IPF Res ult k/uL (138-453 ) [facility] Comment on above: Note: Responsible Ob gravity meter observer: RIKI SYLVIA (0) Platelet, Fluoresc. 301 k/uL (138-453 ) [facility] Comment on above: Note: Responsible Ob gravity meter observer: RIKI SYLVIA (0) PLT, Immature Fract. 10.3 % (1.1-10.3 ) [facility] Comment on above: Note: Responsible Ob gravity meter observer: RIKI SYLVIA ([id number]) Reference Range See Note [facility] Comment on above: Note: Fastin.6-2 4.930 min: 20-49[address] min: 29-8890 min: 26-83249 min: 22-79Responsible Observer: CCEV [employer]OFILE (300) Reported Physicians See Note [facility] Comment on above: Note: Reported Physi cians:Ordering: Juanita LewisAttending: Juanita LewisReferring: Juanita Lewis Total Fe Binding Cap 371 ug/dL (250-450 ) [facility] Comment on above: Note: Responsible Ob gravity meter observer: CEEV [employer]OFILE (300) Unbound Fe Bind Cap 341 ug/dL (112-347 ) [facility] Comment on above: Note: Responsible Ob gravity meter observer: CEE[employer] (300) Laboratory - Chemistry and C hemistry - challengeon 09-06-2022 Glucose [Mass/Vol] 108 mg/dL High (65-105 ) [facility] Comment on above: Note: Responsible Ob gravity meter observer: NOVASS AUTOFILE (2018) No Panel Informationon 09-06 Reported Physicians See Note [facility] Comment on above: Note: Reported Physi cians:Ordering: Juanita LewisAttending: Juanita Lewis Cytologyon 08-15-2022 Cytology (NOTE) Path Number: [id number] DIAGNOSIS Imaged ThinPrep Pap - Cervical (1 monolayer slide): Specimen Adequacy: Satisfactory for evaluation. - Endocervical/transformati on zone component present. Descriptive Diagnosis: Negative for intraepithelial lesion or malignancy. Fungal organisms morphologically consistent with Manuela species. Cytotech Screener: [id number] Rescreened By: EY Electronically Signed Out Estephanie Bates CT(ASCP) ey/08/28/2022 Source of Specimen: A: Imaged ThinPrep Pap - Cervical (1 monolayer slide) HPV Reflex?.................. ....HPV if Abnormal Clinical History Z01.419 Routine aesthetician exam without abnormal findings Prior abnormal pap: 04/13/21 LSIL High risk HPV DNA testing is requested if the diagnosis is abnormal Processing Lab: [address] [address] Interpretation performed at [address] [phone] The Pap smear is a screening test primarily for squamous epithelial lesions, which is subject to both false negative and false positive results. Your patient should be reminded to consult you immediately if she experiences any suspicious signs or symptoms, regardless of her Pap smear result. GYNECOLOGIC CYTOLOGY REPORT Patient Name: SUSY DIAZ [facility] Rec: [id number] [facility] [employer] ANATOMIC PATHOLOGY [address] [place] [phone] [facility] Comment on above: Performed By: #### C BC, SHILOH, BRAYDEN GUTIERREZ #### [address] [address] Hall Clerk: Moisés Harp MD Orders Onlyon 08-09-2022 Orders Only [id number] Linsey Diaz 1995 F Date Provider Department Center 08/09/2022 Adam-UMER, ALYSON DCC INF DCC No family history on file Normal [facility] CBC with Diffon 08-07-2022 Abs. Basophil 0.05 k/uL Normal 0.00-0.20 [facility] Comment on above: Performed By: #### L H, INSU, CDP, FSH, GLUF #### [address] [address] Hall Clerk: Moisés Harp MD Abs.Imm.Granulocyte 0.03 k/uL Normal 0.00-0.30 [facility] Comment on above: Performed By: #### L H, INSU, CDP, FSH, GLUF #### [facility] [employer] [address] [place] [address] Hall Clerk: Moisés Harp MD Abs.Neutrophil (Seg) 5.72 k/uL Normal 1.50-8.10 [facility] Comment on above: Performed By: #### L H, INSU, CDP, FSH, GLUF #### [facility] [employer] [address] [place] [phone] Hall Clerk: Moisés Harp MD Basophils/100 WBC (Bld) 1 % Normal 0-2 [facility] Comment on above: Performed By: #### L H, INSU, CDP, FSH, GLUF #### [facility] [employer] [address] [place] [phone] Hall Clerk: Moisés Harp MD Eosinophils (Bld) [#/Vol] 0.11 10*3/uL Normal 0.00-0.44 [facility] Comment on above: Performed By: #### L H, INSU, CDP, FSH, GLUF #### [facility] [employer] [address] [place] [phone] Hall Clerk: Moisés Harp MD Eosinophils/100 WBC (Bld) 1 % Normal 1-4 [facility] Comment on above: Performed By: #### L H, INSU, CDP, FSH, GLUF #### [address] [address] Hall Clerk: Moisés Harp MD Erythrocyte distribution width (RBC) [Ratio] 16.9 % High 11.8-14.4 [facility] Comment on above: Performed By: #### L H, INSU, CDP, FSH, GLUF #### [place] [address] Hall Clerk: Moisés Harp MD Hematocrit (Bld) [Volume fraction] 35.0 % Low 36.3-47.1 [facility] Comment on above: Performed By: #### L H, INSU, CDP, FSH, GLUF #### [place] [address] Hall Clerk: Moisés Harp MD Hemoglobin (Bld) [Mass/Vol] 10.4 g/dL Low 11.9-15.1 [facility] Comment on above: Performed By: #### L H, INSU, CDP, FSH, GLUF #### [place] [address] Hall Clerk: Moisés Harp MD Immature granulocytes/100 WBC (Bld) 0 % Normal 0 [facility] Comment on above: Performed By: #### L H, INSU, CDP, FSH, GLUF #### [place] [address] Hall Clerk: Moisés Harp MD Lymphocytes (Bld) [#/Vol] 2.44 10*3/uL Normal 1.10-3.70 [facility] Comment on above: Performed By: #### L H, INSU, CDP, FSH, GLUF #### [address] [address] Hall Clerk: Moisés Harp MD Lymphocytes/100 WBC (Bld) 27 % Normal 24-43 [facility] Comment on above: Performed By: #### L H, INSU, CDP, FSH, GLUF #### [address] [address] Hall Clerk: Moisés Harp MD MCH (RBC) [Entitic mass] 22.4 pg Low 25.2-33.5 [facility] Comment on above: Performed By: #### L H, INSU, CDP, FSH, GLUF #### [address] [address] Hall Clerk: Moisés Harp MD MCHC (RBC) [Mass/Vol] 29.7 g/dL Normal 28.4-34.8 [facility] Comment on above: Performed By: #### L H, INSU, CDP, FSH, GLUF #### [address] [address] Hall Clerk: Moisés Harp MD MCV (RBC) [Entitic vol] 75.3 fL Low 82.6-102.9 [facility] Comment on above: Performed By: #### L H, INSU, CDP, FSH, GLUF #### [address] [address] Hall Clerk: Moisés Harp MD Monocytes (Bld) [#/Vol] 0.60 10*3/uL Normal 0.10-1.20 [facility] Comment on above: Performed By: #### L H, INSU, CDP, FSH, GLUF #### [address] [address] Hall Clerk: Moisés Harp MD Monocytes/100 WBC (Bld) 7 % Normal 3-12 [facility] Comment on above: Performed By: #### L H, INSU, CDP, FSH, GLUF #### [address] [address] Hall Clerk: Moisés Harp MD Neutrophil (Seg) 64 % Normal 36-65 [facility] Comment on above: Performed By: #### L H, INSU, CDP, FSH, GLUF #### [address] [address] Hall Clerk: Moisés Harp MD NRBC Automated 0.0 per [address] [facility] Comment on above: Performed By: #### L H, INSU, CDP, FSH, GLUF #### [address] [address] Hall Clerk: Moisés Harp MD Platelet mean volume (Bld) [Entitic vol] 11.2 fL Normal 8.1-13.5 [facility] Comment on above: Performed By: #### L H, INSU, CDP, FSH, GLUF #### [address] [address] Hall Clerk: Mosiés Harp MD Platelets (Bld) [#/Vol] 323 10*3/uL Normal 138-453 [facility] Comment on above: Performed By: #### L H, INSU, CDP, FSH, GLUF #### [address] [address] Hall Clerk: Moisés Harp MD RBC (Bld) [#/Vol] 4.65 10*6/uL Normal 3.95-5.11 [facility] Comment on above: Performed By: #### L H, INSU, CDP, FSH, GLUF #### [address] [address] Hall Clerk: Moisés Harp MD RBC morphology finding Nom (Bld) ANISOCYTOSIS PRESENT Normal [facility] Comment on above: Result Comment: MICR OCYTOSIS PRESENT Performed By: #### L H, INSU, CDP, FSH, GLUF #### [address] [address] Hall Clerk: Moisés Harp MD WBC (Bld) [#/Vol] 9.0 10*3/uL Normal 3.5-11.3 [facility] Comment on above: Performed By: #### L H, INSU, CDP, FSH, GLUF #### [address] [address] Hall Clerk: Moisés Harp MD Follicle Stim. Hormon 2022 Follicle Stim. Horm 6.9 mIU/mL Normal 1.7-21.5 [facility] Comment on above: Result Comment: Refe rence Range: Male: 1.5-12.4 Ovulating Female: Follicular Phase 3.5-12.5 Ovulation Phase 4.7-21.5 Luteal Phase 1.7-7.7 Postmenopausal Female: 25.8-134.8 Performed By: #### L H, INSU, CDP, FSH, GLUF #### [facility] [employer] [address] [place] [address] Hall Clerk: Moisés Harp MD Glucose, Fastingon 3 Glucose [Mass/Vol] 102 mg/dL High 70-99 [facility] Comment on above: Performed By: #### L H, INSU, CDP, FSH, GLUF #### [facility] [employer] [address] [place] [address] Hall Clerk: Moisés Harp MD Insulinon 2 Insulin 58.8 mU/L Normal [facility] Comment on above: Performed By: #### L H, INSU, CDP, FSH, GLUF #### [facility] [address] [place] [address] Hall Clerk: Moisés Harp MD Reference Range Normal [facility] Comment on above: Result Comment: Fast in.6-24.9 30 min: 20-112 60 min: 29-88 90 min: 26-84 120 min: 22-79 Performed By: #### L H, INSU, CDP, FSH, GLUF #### [facility] [employer] [address] [place] [address] [phone] Hall Clerk: Moisés Harp MD Collection Info. hide Normal [facility] Comment on above: Performed By: #### L H, INSU, CDP, FSH, GLUF #### [employer] [address] [place] [address] [phone] Hall Clerk: Moisés Harp MD Luteinizing Hormoneon 2022 Luteinizing Hormone 16.0 mIU/mL Normal 1.0-95.6 [facility] Comment on above: Result Comment: Refe rence Range: Male: 1.7-8.6 Ovulating Female: Follicular Phase 2.4-12.6 Ovulation Phase 14.0-95.6 Luteal Phase 1.0-11.4 Postmenopausal Female: 7.7-58.5 Performed By: #### L H, INSU, CDP, FSH, GLUF #### [facility] [employer] [address] [place] [address] [phone] Hall Clerk: Moisés Harp MD HCG, Quanton 06-28-2022 HCG, Quant <1 Normal <5 [facility] Comment on above: Result Comment: Non-preg premeno <=5 Postmeno <=8 Male <=3 If HCG results do not concur with clinical observations, additional testing to confirm results is recommended. Performed By: #### C BC, INSU, FERI, FEBC #### [facility] [employer] [address] [place] [address] [phone] Hall Clerk: Moisés Harp MD HCG, Quantitative, on 06-28-2022 hCG Quant [facility] Comment on above: Non-preg premeno <=5 Postmeno <=8 Male <=3 If HCG results do not concur with clinical observations, additional testing to confirm results is recommended. [facility] EDPROVon 01-22-2022 EDPROV HPI Chief Complaint Patient presents with ??? Abdominal Pain ??? Vaginal Bleeding Patient is a 26 yo female who presents with complaints of vaginal bleeding and right quadrant pain. Patient states that she has had unusual vaginal bleeding off and on for months as she is on Nexplanon. She states that she has had some mild vaginal bleeding over the last 2 to 3 days. Patient also complains of right-sided abdominal pain. Patient states that she has had multiple previous ovarian cysts and this feels very similar to her previous cyst. She describes some nausea but has had no emesis and is having passage of gas and stool. Buchanan Coma Scale Score: 15 Patient History Past Medical History: Diagnosis Date ??? Anxiety ??? Asthma ??? Bipolar 1 disorder (CMS/HCC) ??? PTSD (post-traumatic stress disorder) History reviewed. No pertinent surgical history. No family history on file. Social History Tobacco Use ??? Smoking status: Former Types: Cigarettes ??? Smokeless tobacco: Never Vaping Use ??? Vaping Use: Every day ??? Substances: Nicotine Substance Use Topics ??? Alcohol use: Yes ??? Drug use: Not Currently Review of Systems Review of Systems Constitutional: Negative for appetite change, chills and fever. HENT: Negative for ear pain and sore throat. Eyes: Negative for pain and visual disturbance. Respiratory: Negative for cough and shortness of breath. Cardiovascular: Negative for chest pain and palpitations. Gastrointestinal: Positive for abdominal pain. Negative for vomiting. Genitourinary: Positive for vaginal bleeding. Negative for dysuria and hematuria. Musculoskeletal: Negative for arthralgias and back pain. Skin: Negative for color change and rash. Neurological: Negative for seizures and syncope. All other systems reviewed and are negative. Physical Exam ED Triage Vitals [01/21/22 2100] Temp Heart Rate Resp BP 36.3 ???C (97.4 ???F) 93 16 (!) 143/101 SpO2 Temp Source Heart Rate Source Patient Position 100 % Tympanic -- -- BP Location FiO2 (%) -- -- Physical Exam Vitals and nursing note reviewed. Constitutional: General: She is not in acute distress. Appearance: She is well-developed and normal weight. HENT: Head: Normocephalic and atraumatic. Nose: Nose normal. Eyes: Extraocular Movements: Extraocular movements intact. Conjunctiva/sclera: Conjunctivae normal. Pupils: Pupils are equal, round, and reactive to light. Neck: Thyroid: No thyromegaly. Vascular: No JVD. Cardiovascular: Rate and Rhythm: Normal rate and regular rhythm. Heart sounds: No murmur heard. Pulmonary: Effort: Pulmonary effort is normal. No respiratory distress. Breath sounds: Normal breath sounds. Abdominal: General: Bowel sounds are normal. Palpations: Abdomen is soft. Tenderness: There is no abdominal tenderness. Comments: Patient has midline to just right of midline lower pelvic pain. I do not appreciate specific point tenderness in the right lower quadrant at McBurney's point, additionally patient is very cheerful and pleasant during the exam with minimal grimace and minimal pain responses. Musculoskeletal: General: Normal range of motion. Cervical back: Normal range of motion and neck supple. Skin: General: Skin is warm and dry. Capillary Refill: Capillary refill takes less than 2 seconds. Neurological: General: No focal deficit present. Mental Status: She is alert and oriented to person, place, and time. Labs Reviewed POCT URINALYSIS DIPSTICK POCT , URINE Procedures ED Course & MDM ED Course as of 01/30/2227Jan 30, 2022 0026 Hx and physical not consistent with Ectopic, ovarian torsion. No associated fever. No lightheadedness,persisten t nausea or systemic signs of illness. Recommended followup with OBGYN. [NF] ED Course User Index [NF] Verenice Llanes MD Diagnoses as of 01/30/2227 Right lower quadrant abdominal pain MDM Attestion Verenice Llanes MD 01/30/2227 [facility] EDNURSon 01-21-2022 EDNURS Pt arrives via priva te vehicle with complains of right lower abdominal pain that started a couple days ago. States the pain is very sharp. States also nauseous but denies vomiting or diarrhea. Also complains of abnormal vaginal bleeding that's been off and on for a couple weeks. States she does not normally have vaginal bleeding due to her BC. Pt is alert and oriented. PWD. NND Normal [facility] Urine Cultureon 10-19-2021 Bacteria identified Cx Nom (U) Reason for Exam Dysuria Urine >100,000 colonies/ml mixed bacterial skin contaminants 2 Days PERFORMED BY: [address] [place] [address] PATHOLOGIST CANTEEN ATTENDANT THEA MELCHOR M.D. [facility] Comment on above: Performed By: #### V AGINITIS+ #### [facility] , #### CUU #### [place] [address] [place] Vaginitis Plus (VG+)on 10-19 Atopobium Vaginae High - 2 Critically abnormal . [facility] Comment on above: Order Comment: Reaso n for Exam Urinary frequency Performed By: #### V AGINITIS+ #### [facility] , #### CUU #### [facility] [address] [place] [address] [place] BVAB2 High - 2 Critically abnormal . [facility] Comment on above: Order Comment: Reaso n for Exam Urinary frequency Performed By: #### V AGINITIS+ #### [facility] , #### CUU #### [place] [address] [place] Manuela Albicans, ASHELY Negative Normal Negative [facility] Comment on above: Order Comment: Reaso n for Exam Urinary frequency Result Comment: This test was developed and its performance characteristics determined by [facility]. It has not been cleared or approved by the Food and Drug Administration. Performed By: #### V AGINITIS+ #### [facility] , #### CUU #### [address] Manuela Glabrata, ASHELY Negative Normal Negative [facility] Comment on above: Order Comment: Reaso n for Exam Urinary frequency Result Comment: This test was developed and its performance characteristics determined by [facility]. It has not been cleared or approved by the Food and Drug Administration. PERFORMED BY: [place] [address] PATHOLOGIST CANTEEN ATTENDANT THEA MELCHOR M.D. Performed By: #### V AGINITIS+ #### [facility] , #### CUU #### [address] Chlamydia Trachomotis, ASHELY Negative Normal Negative [facility] Comment on above: Order Comment: Reaso n for Exam Urinary frequency Performed By: #### V AGINITIS+ #### [facility] , #### CUU #### [facility] [address] Megasphaera High - 2 Critically abnormal . [facility] Comment on above: Order Comment: Reaso n for Exam Urinary frequency Result Comment: Calc ulate total score by adding the 3 individual bacterial vaginosis (BV) marker scores together. Total score is interpreted as follows: Total score 0-1: Indicates the absence of BV. Total score 2: Indeterminate for BV. Additional clinical data should be evaluated to establish a diagnosis. Total score 3-6: Indicates the presence of BV. This test was developed and its performance characteristics determined by [facility]. It has not been cleared or approved by the Food and Drug Administration. Performed By: #### V AGINITIS+ #### [facility] , #### CUU #### [facility] [address] [place] [address] Neisseria Gonorrhoeae, ASHELY Negative Normal Negative [facility] Comment on above: Order Comment: Reaso n for Exam Urinary frequency Result Comment: Perf ormed at: =G - [facility] [address] [id number] Hall Clerk: Koki Lopez MD, Phone: [phone] Performed By: #### V AGINITIS+ #### [facility] , #### CUU #### [facility] [address] [place] [address] Tric Vag ASHELY Negative Normal Negative [facility] Comment on above: Order Comment: Reaso n for Exam Urinary frequency Performed By: #### V AGINITIS+ #### [facility] , #### CUU #### [facility] [address] [place] [address] CBC W/DIFFon 09-02-2021 ABS IMM GRANS 0.0 10*3/uL Normal 0.0-0.2 [facility] Comment on above: Performed By: #### 8 [address]140 #### [facility] [address] [place] [address], [facility] ABS NEUTROPHILS 6.1 10*3/uL Normal 1.6-7.6 [facility] Comment on above: Performed By: #### 8 4140 #### [facility] [address] [place] [address], [place] Basophils (Bld) [#/Vol] 0.1 10*3/uL Normal 0.0-0.2 [facility] Comment on above: Performed By: #### 8 4140 #### [facility] [address] [place] [address], [facility] Basophils/100 WBC (Bld) 0.5 % Normal 0.0-1.0 [facility] Comment on above: Performed By: #### 8 4140 #### [facility] [address] [place] [address], [facility] Eosinophils (Bld) [#/Vol] 0.3 10*3/uL Normal 0.0-0.5 [facility] Comment on above: Performed By: #### 8 4140 #### [facility] [address] [place] [address], [place] Eosinophils/100 WBC (Bld) 2.5 % Normal 0.0-6.0 [facility] Comment on above: Performed By: #### 8 4140 #### [facility] [address] [place] [address], [place] Erythrocyte distribution width (RBC) [Ratio] 17.2 % High 11.5-15.0 [facility] Comment on above: Performed By: #### 8 4140 #### [facility] [address] [place] [address], [place] Hematocrit (Bld) [Volume fraction] 38.1 % Normal 36.0-45.0 [facility] Comment on above: Performed By: #### 8 4140 #### [facility] [address] [facility] [place] [address], [facility] Hemoglobin (Bld) [Mass/Vol] 12.0 g/dL Normal 12.0-15.0 [facility] Comment on above: Performed By: #### 8 4140 #### [facility] [address] [facility] [place] [address], [facility] IMMATURE GRANS 0.3 % Normal 0.0-1.0 [facility] Comment on above: Performed By: #### 8 4140 #### [facility] [address] [place] [address], [facility] Lymphocytes (Bld) [#/Vol] 2.9 10*3/uL Normal 1.2-4.0 [facility] Comment on above: Performed By: #### 8 4140 #### [facility] [address] Lymphocytes/100 WBC (Bld) 29.4 % Normal 20.0-45.0 [facility] Comment on above: Performed By: #### 8 4140 #### [facility] [address] [place] [address], [facility] MCH (RBC) [Entitic mass] 23.9 pg Low 27.0-33.0 [facility] Comment on above: Performed By: #### 8 4140 #### [facility] [address] [facility] [place] [address], [facility] MCHC (RBC) [Mass/Vol] 31.5 g/dL Low 32.0-35.0 [facility] Comment on above: Performed By: #### 8 4140 #### [facility] [address] [place] [address], [facility] MCV (RBC) [Entitic vol] 75.9 fL Low 82.0-98.0 [facility] Comment on above: Performed By: #### 8 4140 #### [facility] [address] [place] [address], [facility] Monocytes (Bld) [#/Vol] 0.5 10*3/uL Normal 0.1-1.0 [facility] Comment on above: Performed By: #### 8 4140 #### [facility] [address] [facility] [place] [address], [facility] MONOS 5.1 % Normal 5.0-12.0 [facility] Comment on above: Performed By: #### 8 4140 #### [facility] [address] [facility] [place] [address], [facility] Neutrophils/100 WBC (Bld) 62.2 % Normal 40.0-72.0 [facility] Comment on above: Performed By: #### 8 4140 #### [facility] [address] [facility] [place] [address], [facility] Nucleated RBC/100 WBC (Bld) [Ratio] 0 % Normal 0-0 [facility] Comment on above: Performed By: #### 8 4140 #### [facility] [address] [facility] [place] [address], [facility] PLAT CNT 243 10*3/uL Normal 150-400 [facility] Comment on above: Performed By: #### 8 4140 #### [facility] [address] [facility] [place] [address], [facility] RBC (Bld) [#/Vol] 5.02 10*6/uL High 3.80-5.00 [facility] Comment on above: Performed By: #### 8 4140 #### [facility] [address] [facility] [place] [address], [facility] WBC (Bld) [#/Vol] 9.82 10*3/uL Normal 4.00-10.60 [facility] Comment on above: Performed By: #### 8 4140 #### [facility] [address] [place] [address], [place] COMP METABOLIC PANELon 09-02 Albumin [Mass/Vol] 3.9 g/dL Normal 3.5-5.7 [facility] Comment on above: Performed By: #### 0 0121 #### [facility] [address] [place] [address], [place] ALKALINE PHOSPH 74 IU/L Normal 34-104 [facility] Comment on above: Performed By: #### 0 0121 #### [facility] [address] [place] [address], [place] ALT [Catalytic activity/Vol] 15 U/L Normal 7-52 [facility] Comment on above: Performed By: #### 0 0121 #### [facility] [address] [place] [address], [place] AST [Catalytic activity/Vol] 11 U/L Low 13-39 [facility] Comment on above: Performed By: #### 0 0121 #### [facility] [address] [place] [address], [place] Bilirubin [Mass/Vol] 0.3 mg/dL Normal 0.3-1.0 [facility] Comment on above: Performed By: #### 0 0121 #### [facility] [address] [place] [address], [place] Calcium [Mass/Vol] 9.0 mg/dL Normal 8.6-10.3 [facility] Comment on above: Performed By: #### 0 0121 #### [facility] [address] [place] [address], [place] Chloride [Moles/Vol] 108 mmol/L High 98-107 [facility] Comment on above: Performed By: #### 0 0121 #### [facility] [address] [place] [address], [place] CO2 [Moles/Vol] 26 mmol/L Normal 21-31 [facility] Comment on above: Performed By: #### 0 0121 #### [facility] [address] [place] [address], [facility] Creatinine [Mass/Vol] 0.62 mg/dL Normal 0.60-1.20 [facility] Comment on above: Performed By: #### 0 0121 #### [facility] [address] [place] [address], [place] GFR/1.73 sq M.predicted among blacks MDRD (S/P/Bld) [Vol rate/Area] mL/min/{1.73_m2} Normal >60 [facility] Comment on above: Performed By: #### 0 0121 #### [facility] [address] [place] [address], [place] GFR/1.73 sq M.predicted among non-blacks MDRD (S/P/Bld) [Vol rate/Area] mL/min/{1.73_m2} Normal >60 [facility] Comment on above: Performed By: #### 0 0121 #### [facility] [address] [place] [address], [place] Glucose [Mass/Vol] 86 mg/dL Normal 70-100 [facility] Comment on above: Performed By: #### 0 0121 #### [facility] [address] [place] [address], [place] Potassium [Moles/Vol] 3.7 mmol/L Normal 3.5-5.1 [facility] Comment on above: Performed By: #### 0 0121 #### [facility] [address] [place] [address], [place] Protein [Mass/Vol] 6.8 g/dL Normal 6.0-8.3 [facility] Comment on above: Performed By: #### 0 0121 #### [facility] [address] [place] [address], [place] Sodium [Moles/Vol] 139 mmol/L Normal 136-145 [facility] Comment on above: Performed By: #### 0 0121 #### [address] [address], [facility] Urea nitrogen [Mass/Vol] 6 mg/dL Low 7-25 [facility] Comment on above: Performed By: #### 0 0121 #### [facility] [address] [place], [place] [address] [place] [address] CT BRAIN WO CONTRASTon 09-02 CT BRAIN WO CONTRAST [facility] Department of Radiology [address] [place] [id number] Patient Name: SUSY DIAZ : 1995 Sex: F Age: Race: White Pt. Location: [facility] Patient Status: E Ordered Date: 09/02/2021 12:50:00 PM Completed Date: 09/02/2021 01:27 PM Requesting Provider: EVITA MCLEAN Attending Provider: DOMINGUEZ WESLEY Report Copy To: Signs & Symptoms: Headache History: See Comments Comments: Bleed Exam: CT BRAIN WO CONTRAST CT BRAIN WO CONTRAST 09/02/2021 1:27 PM SIGNS AND SYMPTOMS: Headache TECHNOLOGIST COMMENTS: s/p fall. co-worker found her down on the bathroom floor. complains of head and neck tenderness. QUESTION FOR THE RADIOLOGIST: Bleed PROTOCOL: Axial CT images of the head were obtained without IV contrast. TECHNIQUE:Multi-detector CT axial slices of the brain were obtained without IV contrast. Helical,sagittal, coronal, and 3-D reconstructions were performed and viewed on a separate workstation. COMPARISON: None. FINDINGS: There is no shift of the midline structures, acute intracranial bleeding, mass effects, or evidence of acute ischemia. The ventricular system is normal in size. The brainstem and the cerebellum are unremarkable. The visualized intraorbital contents, the visualized paranasal sinuses, and the infratemporal soft tissues show no acute abnormality. The osseous structures in the skull base and the calvarium show no abnormality. IMPRESSION: Normal noncontrasted CT brain. All CT scans at this facility use dose modulation, iterative reconstruction, and/or weight based dosing when appropriate to reduce radiation dose to as low as reasonably achievable Electronically signed: Tono Thomas. Transcribed by: [email or web address], User Resident: Electronically Signed by: TONO THOMAS @ 09/02/2021 01:34 PM Normal [facility] Comment on above: Order Comment: Bleed CT CERVICAL SPINE WITHOUT CO NTRASTon 09-02-2021 CT CERVICAL SPINE WITHOUT CONTRAST [facility] Department of Radiology [address] [place] [id number] Patient Name: SUSY DIAZ : 1995 Sex: F Age: Race: White Pt. Location: [facility] Patient Status: E Ordered Date: 09/02/2021 12:50:00 PM Completed Date: 09/02/2021 01:27 PM Requesting Provider: EVITA MCLEAN Attending Provider: DOMINGUEZ WESLEY Report Copy To: Signs & Symptoms: Trauma History: See Comments Comments: Fractures Exam: CT CERVICAL SPINE WITHOUT CONTRAST CT CERVICAL SPINE WITHOUT CONTRAST 09/02/2021 1:27 PM CLINICAL INDICATIONS: Trauma TECHNOLOGIST COMMENTS: QUESTION FOR THE RADIOLOGIST: Fractures PROTOCOL: Volume acquisition with MIP, multiplanar reformats and 3D reconstructed images were generated on an independent workstation and reviewed to further define anatomy and possible pathology. TECHNIQUE: Multidetector CT axial slices of the cervical spine were obtained without IV contrast. Multiplanar reformats, MIP, volume rendered 3-D images were generated on a separate workstation and reviewed to further define anatomy and possible pathology. All CT scans at this facility use dose modulation, iterative reconstruction, and/or weight based dosing when appropriate to reduce radiation dose to as low as reasonably achievable COMPARISON: None. FINDINGS: Study is slightly compromised due to motion artifact at the level of C2. Otherwise, there is straightening and loss of the normal lordosis likely due to imaging the patient on the backboard or may represent muscle spasm. Vertebral heights and disc heights are relatively preserved. Facet joints are well aligned. No definite fractures. Coronal reconstruction revealed symmetric temporal mandibular joints. There is satisfactory alignment at C1-2 and atlantooccipital articulation. Visualized upper posterior ribs appear intact. Axial images in lung windows did not reveal any parenchymal abnormalities or pneumothorax. Soft tissue windows revealed normal appearance of the thyroid and visualized part of the salivary glands. IMPRESSION: Straightening and loss of the lordosis possibly due to imaging the patient on the backboard or from muscle spasm. Motion artifact limits visualization of C2 but otherwise, no gross acute bony abnormality or malalignment appreciated. Electronically signed: Tono Thomas. Transcribed by: [email or web address], User Resident: Electronically Signed by: TONO THOMAS @ 09/02/2021 01:37 PM Normal [facility] Comment on above: Order Comment: Fract ures LIPASE BLOODon 09-02-2021 LIPASE 20 Units/L Normal 11-82 [facility] Comment on above: Performed By: #### [id number] #### [facility] [address] POC URINE PREGNANCYon 2021 Beta HCG ( test) Ql (U) Negative Normal NEGATIVE [facility] Comment on above: Result Comment: Perf ormed in Emergency Department. Performed By: #### [id number] #### [facility] [address] [facility] [place] [address], [facility] URINALYSIS REFLEXon 09-03-19 Appearance (U) SL CLOUDY Abnormal CLEAR [facility] Comment on above: Order Comment: Crite marisol for reflexing a culture was not met. Please call the lab at [phone] within 24 hours of collection time if culture is needed Performed By: #### 3 [id number] #### [facility] [address] [place] [address], [facility] Bilirubin Ql (U) Negative Normal NEGATIVE [facility] Comment on above: Order Comment: Crite marisol for reflexing a culture was not met. Please call the lab at [phone] within 24 hours of collection time if culture is needed Performed By: #### 3 [id number] #### [facility] [address] [facility] [place] [address], [facility] Color (U) YELLOW Normal YELLOW [facility] Comment on above: Order Comment: Crite marisol for reflexing a culture was not met. Please call the lab at [phone] within 24 hours of collection time if culture is needed Performed By: #### 3 [id number] #### [facility] [address] [facility] [place] [address], [facility] Glucose Ql (U) Negative Normal NEGATIVE [facility] Comment on above: Order Comment: Crite marisol for reflexing a culture was not met. Please call the lab at [phone] within 24 hours of collection time if culture is needed Performed By: #### 3 [id number] #### [facility] [address] [facility] [place] [address], [facility] Hemoglobin Ql (U) Negative Normal NEGATIVE [facility] Comment on above: Order Comment: Crite marisol for reflexing a culture was not met. Please call the lab at [phone] within 24 hours of collection time if culture is needed Performed By: #### 3 [id number] #### [facility] [address] [place] [address], [facility] KETONE Negative Normal NEGATIVE [facility] Comment on above: Order Comment: Crite marisol for reflexing a culture was not met. Please call the lab at [phone] within 24 hours of collection time if culture is needed Performed By: #### 3 [id number] #### [facility] [address] [place] [address], [place] LEUK CHUYITA Negative Normal NEGATIVE [facility] Comment on above: Order Comment: Crite marisol for reflexing a culture was not met. Please call the lab at [phone] within 24 hours of collection time if culture is needed Performed By: #### 3 [id number] #### [facility] [address] [facility] [place] [address], [facility] MICRO NOT DONE Normal [facility] Comment on above: Order Comment: Crite marisol for reflexing a culture was not met. Please call the lab at [phone] within 24 hours of collection time if culture is needed Result Comment: Micr oscopics not performed on urines with negative chemical reactions unless requested in original order Performed By: #### 3 [id number] #### [facility] [address] [facility] [place] [place] [address], [facility] Nitrite Ql (U) Negative Normal NEGATIVE [facility] Comment on above: Order Comment: Crite marisol for reflexing a culture was not met. Please call the lab at [phone] within 24 hours of collection time if culture is needed Performed By: #### 3 [id number] #### [facility] [address] [place] [address], [place] pH (U) 7.0 [pH] Normal 5.0-8.0 [facility] Comment on above: Order Comment: Crite marisol for reflexing a culture was not met. Please call the lab at [phone] within 24 hours of collection time if culture is needed Performed By: #### 3 [id number] #### [facility] [address] [facility] [place] [address], [facility] Protein Ql (U) Negative Normal NEGATIVE [facility] Comment on above: Order Comment: Crite marisol for reflexing a culture was not met. Please call the lab at [phone] within 24 hours of collection time if culture is needed Performed By: #### 3 [id number] #### [facility] [address] [place] [address], [facility] SPEC GRAV 1.014 Low 1.015-1.020 [facility] Comment on above: Order Comment: Crite marisol for reflexing a culture was not met. Please call the lab at [phone] within 24 hours of collection time if culture is needed Performed By: #### 3 0965 #### [facility] [address] [facility]. [address] POC URINE PREGNANCYon 2021 Beta HCG ( test) Ql (U) Negative Normal NEGATIVE [facility] Comment on above: Performed By: #### [id number] #### [facility] [address] [facility]. [address] MRI KNEE LEFT WO CONTRASTon 07-01-2021 No acute findings or internal derangement. Anatomy associated with patellofemoral maltracking. [facility] RIS CONSOLIDATED EXAMINATION: MRI OF THE LEFT KNEE WITHOUT CONTRAST, 06/29/2021 3:20 pm TECHNIQUE: Multiplanar multisequence MRI of the left knee was performed without the administration of intravenous contrast. COMPARISON: Radiographs from November 03, 2020 HISTORY: ORDERING SYSTEM PROVIDED HISTORY: Bucket handle tear of meniscus of left knee, unspecified meniscus, unspecified whether old or current tear, initial encounter TECHNOLOGIST PROVIDED HISTORY: Concern for bucket handle meniscus What is the sedation requirement?->None Is the patient ?->No Reason for Exam: Concern for bucket handle meniscus FINDINGS: MENISCI: Intact medial and lateral menisci. CRUCIATE LIGAMENTS: Intact anterior cruciate and posterior cruciate ligaments. EXTENSOR MECHANISM: Intact quadriceps and patellar tendons. Intact patellar retinacula. Mild lateral patellar translation within a shallow trochlear groove. Tibial tuberosity to trochlear groove distance of 16 mm. LATERAL COLLATERAL LIGAMENT COMPLEX: Intact IT band, lateral collateral ligament proper, biceps femoris tendon and popliteus tendon. MEDIAL COLLATERAL LIGAMENT COMPLEX: The superficial and deep components of the medial collateral ligament are intact. KNEE JOINT: Small joint effusion. No high-grade cartilage loss. BONE MARROW: No evidence of fracture. Normal marrow signal. [facility] Era Toure D O - 07/01/2021 EXAMINATION: MRI OF THE LEFT KNEE WITHOUT CONTRAST, 06/29/2021 3:20 pm TECHNIQUE: Multiplanar multisequence MRI of the left knee was performed without the administration of intravenous contrast. COMPARISON: Radiographs from November 03, 2020 HISTORY: ORDERING SYSTEM PROVIDED HISTORY: Bucket handle tear of meniscus of left knee, unspecified meniscus, unspecified whether old or current tear, initial encounter TECHNOLOGIST PROVIDED HISTORY: Concern for bucket handle meniscus What is the sedation requirement?->None Is the patient ?->No Reason for Exam: Concern for bucket handle meniscus FINDINGS: MENISCI: Intact medial and lateral menisci. CRUCIATE LIGAMENTS: Intact anterior cruciate and posterior cruciate ligaments. EXTENSOR MECHANISM: Intact quadriceps and patellar tendons. Intact patellar retinacula. Mild lateral patellar translation within a shallow trochlear groove. Tibial tuberosity to trochlear groove distance of 16 mm. LATERAL COLLATERAL LIGAMENT COMPLEX: Intact IT band, lateral collateral ligament proper, biceps femoris tendon and popliteus tendon. MEDIAL COLLATERAL LIGAMENT COMPLEX: The superficial and deep components of the medial collateral ligament are intact. KNEE JOINT: Small joint effusion. No high-grade cartilage loss. BONE MARROW: No evidence of fracture. Normal marrow signal. IMPRESSION: No acute findings or internal derangement. Anatomy associated with patellofemoral maltracking. [facility] Work Phone: MRI KNEE LEFT WO CONTRASTOrd ered By: Era Goldberg on 07-01-2021 [facility] Work Phone: MRI KNEE LEFT WO CONTRASTon 06-29-2021 Radiology Study observation (narrative) [facility] Work Phone: Microscopic Urinalysison - [facility] Bacteria, UA MANY Abnormal None [facility] Epithelial Cells UA TOO NUMEROUS TO COUNT [facility] Interpretation and review of laboratory results Abnormal [facility] RBC, UA 10 TO 20 [facility] Comment on above: Reference range defi matthew for non-centrifuged specimen. WBC, UA TOO NUMEROUS TO COUNT [facility] , URINEon 2 Beta HCG ( test) Ql (U) Negative NEGATIVE [facility] Comment on above: Specimens with hCG l evels near the threshold of the test (25 mIU/mL) may give a negative or indeterminate result. In such cases, another test should be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 osseous lesion. No focal soft tissue abnormality. AC joint is unremarkable. IMPRESSION: No acute osseous abnormality. [employer] Phone: [employer] Phone: POCT urine pregnancyOrdered By: Shani Son on 01-09-2021 Interpretation and review of laboratory results Normal [facility] Preg Test, Ur Negative [employer] [facility] No Panel InformationOrdered By: Alyse Roger on 11-03-2020 Normal examination o f the left hip and left knee. [employer] Phone: EXAMINATION: TWO XRA Y VIEWS OF THE LEFT HIP; FOUR XRAY VIEWS OF THE LEFT KNEE 11/03/2020 3:36 am COMPARISON: Left knee dated 09/14/2020. HISTORY: ORDERING SYSTEM PROVIDED HISTORY: Hip pain from fall forward onto knee TECHNOLOGIST PROVIDED HISTORY: Hip pain from fall forward onto knee Reason for Exam: fell going up the stairs FINDINGS: No fracture, dislocation or joint abnormality identified. Bone density and soft tissues are normal. [employer] Phone: Froy, pn Incoming Radiant Results From [employer] - 11/03/2020 4:40 AM EDT EXAMINATION: TWO XRAY VIEWS OF THE LEFT HIP; FOUR XRAY VIEWS OF THE LEFT KNEE 11/03/2020 3:36 am COMPARISON: Left knee dated 09/14/2020. HISTORY: ORDERING SYSTEM PROVIDED HISTORY: Hip pain from fall forward onto knee TECHNOLOGIST PROVIDED HISTORY: Hip pain from fall forward onto knee Reason for Exam: fell going up the stairs FINDINGS: No fracture, dislocation or joint abnormality identified. Bone density and soft tissues are normal. IMPRESSION: Normal examination of the left hip and left knee. [employer] Phone: [employer] Phone: Basic Metabolic Panel w/ Ref veronica to MGOrdered By: Hemalatha Conde on 10-11-2020 Anion gap [Moles/Vol] 12 mmol/L 9 - 17 mmol/L [employer] Phone: Calcium [Mass/Vol] 9.3 mg/dL 8.6 - 10. 4 mg/dL [employer] Phone: Chloride [Moles/Vol] 103 mmol/L 98 - 10 7 mmol/L [employer] Phone: CO2 [Moles/Vol] 24 mmol/L 20 - 31 mmol/L [employer] Phone: Creatinine [Mass/Vol] 0.64 mg/dL 0.50 - 0.90 mg/dL [employer] Phone: GFR >60 >60 mL/min [employer] Phone: GFR Non- >60 >60 mL/min [employer] Phone: GFR/1.73 sq M.predicted MDRD (S/P/Bld) [Vol rate/Area] [employer] Phone: Comment on above: Average GFR for 20-2 9 years old: 116 mL/min/1.73sq m Chronic Kidney Disease: <60 mL/min/1.73sq m Kidney failure: <15 mL/min/1.73sq m eGFR calculated using average adult body mass. Additional eGFR calculator available at: http://www.[employer]multiple_crcl_2012.htm GFR/1.73 sq M.predicted MDRD (S/P/Bld) [Vol rate/Area] NOT REPORTED [employer] Work Phone: Glucose [Mass/Vol] 90 mg/dL 70 - 99 mg/dL [facility] Work Phone: Potassium [Moles/Vol] 3.8 mmol/L 3.7 - 5.3 mmol/L [employer] Work Phone: Sodium [Moles/Vol] 139 mmol/L 135 - 144 mmol/L [employer] Phone: Urea nitrogen (BldV) [Mass/Vol] 7 mg/dL 6 - 20 mg/dL [employer] Work Phone: Urea nitrogen/Creatinine (Bld) [Mass ratio] NOT REPORTED [employer] Phone: CBC Auto DifferentialOrdered By: Hemalatha Conde on 10-11-2020 Absolute Eos # 0.22 [employer] [facility] Work Phone: Absolute Immature Granulocyte 0.05 [employer] Work Phone: Absolute Lymph # 3.34 [employer] [facility] Work Phone: Absolute [place] # 0.74 [employer] [facility] Work Phone: Basophils (Bld) [#/Vol] 0.06 10*3/uL [facility] Work Phone: Basophils/100 WBC (Bld) 0 % 0 - 2 % [facility] Work Phone: Differential Type NOT REPORTED [facility] Work Phone: Eosinophils/100 WBC (Bld) 2 % 1 - 4 % [facility] Work Phone: Hematocrit (Bld) [Volume fraction] 42.5 % 36.3 - 47.1 % [employer] Phone: Hemoglobin.gastroint estinal spec 1 Ql (Stl) 12.9 g/dL 11.9 - 15.1 g/dL [employer] Phone: Immature granulocytes/100 WBC (Bld) 0 % 0 [employer] Phone: Interpretation and review of laboratory results Abnormal [employer] Phone: Lymphocytes/100 WBC (Bld) 23 % Low 24 - 43 % [employer] Phone: MCH (RBC) [Entitic mass] 24.5 pg Low 25.2 - 33.5 pg [employer] Phone: MCHC (RBC) [Mass/Vol] 30.4 g/dL 28.4 - 34.8 g/dL [employer] Phone: MCV (RBC) [Entitic vol] 80.6 fL Low 82.6 - 102.9 fL [employer] Phone: Monocytes/100 WBC (Bld) 5 % 3 - 12 % [employer] Phone: NRBC Automated 0.0 0.0 per 100 WBC [employer] Phone: Platelet distribution width (Bld) [Ratio] 16.2 % High 11.8 - 14.4 % [employer] Phone: Platelet Estimate NOT REPORTED [employer] Phone: Platelet mean volume (Bld) [Entitic vol] 11.9 fL 8.1 - 13.5 fL [employer] Phone: Platelets (Bld) [#/Vol] 281 10*3/uL [employer] Phone: RBC (Bld) [#/Vol] 5.27 10*6/uL High 3.95 - 5.1 1 m/uL [employer] Phone: RBC (Bld) [#/Vol] ANISOCYTOSIS PRESENT [employer] Phone: Comment on above: MICROCYTOSIS PRESENT Segmented neutrophils/100 WBC (Bld) 70 % High 36 - 65 % [employer] Phone: Segs Absolute 10.10 High [employer] Work Phone: WBC (Bld) [#/Vol] 14.5 10*3/uL High [facility] Work Phone: WBC (Bld) [#/Vol] NOT REPORTED [employer] Phone: [employer] Phone: CT ABDOMEN PELVIS W IV CONTR AST Additional Contrast? NoneOrdered By: Heamlatha Conde on 10-11-2020 1. Normal appendix. 2. Right-sided mild ureterectasis and hydronephrosis without evidence of radiopaque obstructing calculus. Findings suggest recent passage of right-sided urinary collecting system calculus as was suggested on prior study. Differential diagnostic considerations include association with persisting urinary tract infection. No CT evidence of pyelonephritis. Recommend clinical correlation. [employer] Phone: EXAMINATION: CT OF T HE ABDOMEN AND PELVIS WITH CONTRAST 10/11/2020 3:53 am TECHNIQUE: CT of the abdomen and pelvis was performed with the administration of intravenous contrast. Multiplanar reformatted images are provided for review. Dose modulation, iterative reconstruction, and/or weight based adjustment of the mA/kV was utilized to reduce the radiation dose to as low as reasonably achievable. COMPARISON: CT abdomen and pelvis without contrast September 08, 2020. HISTORY: ORDERING SYSTEM PROVIDED HISTORY: RLQ pain, r/o appendicitis TECHNOLOGIST PROVIDED HISTORY: RLQ pain, r/o appendicitis Decision Support Exception - unselect if not a suspected or confirmed emergency medical condition->Emergency Medical Condition (MA) Reason for Exam: RLQ pain, r/o appendicitis Acuity: Acute Type of Exam: Initial FINDINGS: Abdomen/Pelvis: Lower chest: The lung bases are well aerated. Pleural surfaces are unremarkable and no evidence of pleural effusion is identified. Organs: Right-sided mild ureterectasis and hydronephrosis is noted without evidence of radiopaque obstructing calculus visualized. The liver, gallbladder, spleen, pancreas, adrenal glands, kidneys, are otherwise unremarkable in appearance. GI/Bowel: The stomach is unremarkable without wall thickening or distention. Bowel loops are unremarkable in appearance without evidence of obstruction, distension or mucosal thickening. The appendix is normal. Pelvis: The urinary bladder is well distended and unremarkable in appearance. No evidence of pelvic free fluid is seen. Peritoneum/Retroperitoneu m: No evidence of retroperitoneal or intraperitoneal lymphadenopathy is identified. No evidence of intraperitoneal free fluid is seen. Bones/Soft Tissues: The bones, skeletal muscle bundles, fascial planes and subcutaneous soft tissues are unremarkable in appearance. [employer] Work Phone: Froy, pn Incoming Radiant Results From [employer]/Night Out - 10/11/2020 4:57 AM EDT EXAMINATION: CT OF THE ABDOMEN AND PELVIS WITH CONTRAST 10/11/2020 3:53 am TECHNIQUE: CT of the abdomen and pelvis was performed with the administration of intravenous contrast. Multiplanar reformatted images are provided for review. Dose modulation, iterative reconstruction, and/or weight based adjustment of the mA/kV was utilized to reduce the radiation dose to as low as reasonably achievable. COMPARISON: CT abdomen and pelvis without contrast September 08, 2020. HISTORY: ORDERING SYSTEM PROVIDED HISTORY: RLQ pain, r/o appendicitis TECHNOLOGIST PROVIDED HISTORY: RLQ pain, r/o appendicitis Decision Support Exception - unselect if not a suspected or confirmed emergency medical condition->Emergency Medical Condition (MA) Reason for Exam: RLQ pain, r/o appendicitis Acuity: Acute Type of Exam: Initial FINDINGS: Abdomen/Pelvis: Lower chest: The lung bases are well aerated. Pleural surfaces are unremarkable and no evidence of pleural effusion is identified. Organs: Right-sided mild ureterectasis and hydronephrosis is noted without evidence of radiopaque obstructing calculus visualized. The liver, gallbladder, spleen, pancreas, adrenal glands, kidneys, are otherwise unremarkable in appearance. GI/Bowel: The stomach is unremarkable without wall thickening or distention. Bowel loops are unremarkable in appearance without evidence of obstruction, distension or mucosal thickening. The appendix is normal. Pelvis: The urinary bladder is well distended and unremarkable in appearance. No evidence of pelvic free fluid is seen. Peritoneum/Retroperitoneu m: No evidence of retroperitoneal or intraperitoneal lymphadenopathy is identified. No evidence of intraperitoneal free fluid is seen. Bones/Soft Tissues: The bones, skeletal muscle bundles, fascial planes and subcutaneous soft tissues are unremarkable in appearance. IMPRESSION: 1. Normal appendix. 2. Right-sided mild ureterectasis and hydronephrosis without evidence of radiopaque obstructing calculus. Findings suggest recent passage of right-sided urinary collecting system calculus as was suggested on prior study. Differential diagnostic considerations include association with persisting urinary tract infection. No CT evidence of pyelonephritis. Recommend clinical correlation. [facility] Phone: [facility]Books Phone: HCG Qualitative, SerumOrdere d By: Hemalatha Conde on 10-11-2020 hCG Qual Negative NEGATIVE [employer] Phone: Comment on above: Specimens with hCG l evels near the threshold of the test (25 mIU/mL) may give a negative or indeterminate result. In such cases, another test should be performed with a new specimen in 48-72 hours. If early is suspected clinically in this setting, correlation with quantitative serum b-hCG level is suggested. [employer] has confirmed the use of plasma for this test. This has not been cleared or approved by the U.S. Food and Drug Administration. The FDA has determined that such clearance is not necessary. [employer] Phone: Hepatic Function PanelOrdere d By: Hemalatha Conde on 10-11-2020 Albumin [Mass/Vol] 4.2 g/dL 3.5 - 5.2 g/dL [employer] Phone: Albumin/Globulin [Mass ratio] 1.1 {ratio} [employer] Phone: ALP (Bld) [Catalytic activity/Vol] 100 U/L 35 - 104 U/L [employer] Phone: ALT [Catalytic activity/Vol] 13 U/L 5 - 33 U/L [employer] Phone: AST [Catalytic activity/Vol] 13 U/L <32 [employer] Phone: Bilirubin [Mass/Vol] 0.23 mg/dL Low 0.3 - 1 .2 mg/dL [employer] Phone: Bilirubin, Indirect 0.13 mg/dL 0.00 - 1 .00 mg/dL [employer] Phone: Bilirubin.indirect [Mass/Vol] 0.10 mg/dL <0.31 [employer] Phone: Free PSA/Total PSA [Mass fraction] 7.9 g/dL 6.4 - 8.3 g/dL [employer] Phone: Globulin NOT REPORTED 1.5 - 3.8 g/dL [facility]: Interpretation and review of laboratory results Abnormal [facility] Phone: LipaseOrdered By: Hemalatha rod on 10-11-2020 Lipase [Catalytic activity/Vol] 21 U/L 13 - 60 U/L [employer] Phone: No Panel InformationOrdered By: Hemalatha Conde on 10-11-2020 [facility] Phone: Urinalysis with MicroscopicO rdered By: Hemalatha Conde on 10-11-2020 - [employer] Phone: Amorphous, UA NOT REPORTED None [facility] Work Phone: Bacteria, UA FEW Abnormal None [facility] Work Phone: Bilirubin Urine Negative NEGATIVE [facility] Work Phone: Casts UA 10 TO 20 HYALINE Reference range defined for non-centrifuged specimen. [facility] Work Phone: Color, UA YELLOW YELLOW [employer] Phone: Crystals, UA NOT REPORTED None /HPF [facility] Work Phone: Epithelial Cells UA 2 TO 5 [facility] Work Phone: Glucose, Ur Negative NEGATIVE [facility] Work Phone: Interpretation and review of laboratory results Abnormal [facility] Work Phone: Ketones Ql (U) Negative NEGATIVE [employer] Work Phone: Leukocyte esterase Test strip Ql (U) SMALL Abnormal NEGATIVE [employer] Phone: Mucus, UA NOT REPORTED None [facility] Work Phone: Nitrite, Urine Negative NEGATIVE [employer] Work Phone: Other Observations UA NOT REPORTED NOT REQ. [employer] Work Phone: pH, UA 6.5 [employer] Phone: Protein, UA 1+ Abnormal NEGATIVE [employer] Phone: RBC, UA 5 TO 10 [employer] Work Phone: Comment on above: Reference range defi matthew for non-centrifuged specimen. Renal Epithelial, UA NOT REPORTED 0 /HPF [employer] Work Phone: Specific Ulmer, UA 1.016 [employer] Work Phone: Trichomonas, UA NOT REPORTED None [employer] Work Phone: Turbidity UA CLEAR CLEAR [facility] Work Phone: Urine Hgb Negative NEGATIVE [employer] Work Phone: Urobilinogen, Urine Normal Normal [employer] Phone: WBC, UA 20 TO 50 [employer] Work Phone: Yeast, UA NOT REPORTED None [employer] Phone: [employer] Work Phone: CBC WITH AUTO DIFFERENTIALOr dered By: Alyse Roger on 09-08-2020 Absolute Eos # 0.13 [employer] Work Phone: Absolute Immature Granulocyte 0.00 [employer] Work Phone: Absolute Lymph # 3.48 Aicha Neal alth Work Phone: Absolute [place] # 0.94 High [employer] [facility] Work Phone: Basophils (Bld) [#/Vol] 0.00 10*3/uL [employer] Work Phone: Basophils/100 WBC (Bld) 0 % 0 - 2 % [employer] Work Phone: Differential Type NOT REPORTED [employer] Phone: Eosinophils/100 WBC (Bld) 1 % 1 - 4 % [employer] Phone: Hematocrit (Bld) [Volume fraction] 43.1 % 36.3 - 47.1 % [employer] Phone: Hemoglobin.gastroint estinal spec 1 Ql (Stl) 12.7 g/dL 11.9 - 15.1 g/dL [facility] Work Phone: Immature granulocytes/100 WBC (Bld) 0 % 0 [employer] Phone: Interpretation and review of laboratory results Abnormal [employer] Phone: Lymphocytes/100 WBC (Bld) 26 % 24 - 44 % [employer] Phone: MCH (RBC) [Entitic mass] 24.1 pg Low 25.2 - 33.5 pg [facility] Work Phone: MCHC (RBC) [Mass/Vol] 29.5 g/dL 28.4 - 34.8 g/dL [employer] Phone: MCV (RBC) [Entitic vol] 81.8 fL Low 82.6 - 102.9 fL [employer] Phone: Monocytes/100 WBC (Bld) 7 % 1 - 7 % [employer] Work Phone: Morphology Fantasma (Bld) [Interp] ANISOCYTOSIS PRESENT [employer] Work Phone: Morphology Fantasma (Bld) [Interp] MICROCYTOSIS PRESENT [employer] Work Phone: NRBC Automated 0.0 0.0 per 100 WBC [employer] Phone: Platelet distribution width (Bld) [Ratio] 17.0 % High 11.8 - 14.4 % [employer] Phone: Platelet Estimate NOT REPORTED [employer] Phone: Platelet mean volume (Bld) [Entitic vol] 11.9 fL 8.1 - 13.5 fL [employer] Phone: Platelets (Bld) [#/Vol] 329 10*3/uL [employer] Phone: RBC (Bld) [#/Vol] 5.27 10*6/uL High 3.95 - 5.1 1 m/uL [employer] Phone: RBC (Bld) [#/Vol] NOT REPORTED [employer] Phone: Segmented neutrophils/100 WBC (Bld) 66 % 36 - 66 % [employer] Phone: Segs Absolute 8.85 High [employer] Phone: WBC (Bld) [#/Vol] 13.4 10*3/uL High [employer] Phone: WBC (Bld) [#/Vol] NOT REPORTED [employer] Phone: Hello[employer] Phone: CT ABDOMEN PELVIS WO CONTRAS T Additional Contrast? NoneOrdered By: Alyse Roger on 09-08-2020 Stranding seen adjac ent to the left renal pelvis and ureter suggestive of a recently passed stone. No hydroureteronephrosis is identified. No renal calculi. [employer] Phone: EXAMINATION: CT OF T HE ABDOMEN AND PELVIS WITHOUT CONTRAST 09/08/2020 7:28 am TECHNIQUE: CT of the abdomen and pelvis was performed without the administration of intravenous contrast. Multiplanar reformatted images are provided for review. Dose modulation, iterative reconstruction, and/or weight based adjustment of the mA/kV was utilized to reduce the radiation dose to as low as reasonably achievable. COMPARISON: 04/23/2020 HISTORY: ORDERING SYSTEM PROVIDED HISTORY: L flank pain, dirty urine TECHNOLOGIST PROVIDED HISTORY: L flank pain, dirty urine Decision Support Exception - unselect if not a suspected or confirmed emergency medical condition->Emergency Medical Condition (MA) Is the patient ?->No FINDINGS: Lower Chest: No parenchymal consolidation or pleural effusion is identified. No cardiomegaly is seen. Organs: No low-attenuation lesion identified within the liver or spleen. No adrenal mass. No pancreatic mass. No peripancreatic inflammatory process is identified. No hydroureteronephrosis is identified. Stranding is seen adjacent to the left renal pelvis, as well as along the course of the left ureter. No bladder calculi are seen. No renal calculi are identified. GI/Bowel: No ileus or obstruction is identified. No appendicitis or diverticulitis. Pelvis: No pelvic mass. The bladder, uterus and adnexal regions appear grossly unremarkable. No significant free fluid identified in the pelvis. Peritoneum/Retroperitoneu m: No adenopathy or abdominal aortic aneurysm. Periureteral stranding. Bones/Soft Tissues: No acute subcutaneous soft tissue abnormality is identified. No acute osseous abnormality is identified. Spinal alignment appear stable. [employer] Work Phone: Froy, pn Incoming Radiant Results From [employer]/[facility] Out - 09/08/2020 7:44 AM EDT EXAMINATION: CT OF THE ABDOMEN AND PELVIS WITHOUT CONTRAST 09/08/2020 7:28 am TECHNIQUE: CT of the abdomen and pelvis was performed without the administration of intravenous contrast. Multiplanar reformatted images are provided for review. Dose modulation, iterative reconstruction, and/or weight based adjustment of the mA/kV was utilized to reduce the radiation dose to as low as reasonably achievable. COMPARISON: 04/23/2020 HISTORY: ORDERING SYSTEM PROVIDED HISTORY: L flank pain, dirty urine TECHNOLOGIST PROVIDED HISTORY: L flank pain, dirty urine Decision Support Exception - unselect if not a suspected or confirmed emergency medical condition->Emergency Medical Condition (MA) Is the patient ?->No FINDINGS: Lower Chest: No parenchymal consolidation or pleural effusion is identified. No cardiomegaly is seen. Organs: No low-attenuation lesion identified within the liver or spleen. No adrenal mass. No pancreatic mass. No peripancreatic inflammatory process is identified. No hydroureteronephrosis is identified. Stranding is seen adjacent to the left renal pelvis, as well as along the course of the left ureter. No bladder calculi are seen. No renal calculi are identified. GI/Bowel: No ileus or obstruction is identified. No appendicitis or diverticulitis. Pelvis: No pelvic mass. The bladder, uterus and adnexal regions appear grossly unremarkable. No significant free fluid identified in the pelvis. Peritoneum/Retroperitoneu m: No adenopathy or abdominal aortic aneurysm. Periureteral stranding. Bones/Soft Tissues: No acute subcutaneous soft tissue abnormality is identified. No acute osseous abnormality is identified. Spinal alignment appear stable. IMPRESSION: Stranding seen adjacent to the left renal pelvis and ureter suggestive of a recently passed stone. No hydroureteronephrosis is identified. No renal calculi. [employer] Phone: [employer] Phone: Comprehensive Metabolic Pane lOrdered By: César Rodriguez on 09-08-2020 Albumin [Mass/Vol] 3.1 g/dL Low 3.5 - 5.2 g/dL [employer] Phone: Albumin/Globulin [Mass ratio] 0.9 {ratio} Low [employer] Phone: ALP (Bld) [Catalytic activity/Vol] 79 U/L 35 - 104 U/L [employer] Phone: ALT [Catalytic activity/Vol] 16 U/L 5 - 33 U/L [employer] Phone: Anion gap [Moles/Vol] 12 mmol/L 9 - 17 mmol/L [employer] Phone: AST [Catalytic activity/Vol] 12 U/L <32 [employer] Phone: Bilirubin [Mass/Vol] mg/dL Low 0.3 - 1 .2 mg/dL [employer] Phone: Calcium [Mass/Vol] 8.4 mg/dL Low 8.6 - 10. 4 mg/dL [employer] Phone: Chloride [Moles/Vol] 110 mmol/L High 98 - 10 7 mmol/L [employer] Phone: CO2 [Moles/Vol] 21 mmol/L 20 - 31 mmol/L [employer] Phone: Creatinine [Mass/Vol] 0.49 mg/dL Low 0.50 - 0.90 mg/dL [employer] Phone: Free PSA/Total PSA [Mass fraction] 6.5 g/dL 6.4 - 8.3 g/dL [employer] Phone: GFR >60 >60 mL/min [employer] Phone: GFR Non- >60 >60 mL/min [employer] Phone: GFR/1.73 sq M.predicted MDRD (S/P/Bld) [Vol rate/Area] [employer] Phone: Comment on above: Average GFR for 20-2 9 years old: 116 mL/min/1.73sq m Chronic Kidney Disease: <60 mL/min/1.73sq m Kidney failure: <15 mL/min/1.73sq m eGFR calculated using average adult body mass. Additional eGFR calculator available at: http://www.[employer]/multiple_crcl_2012.htm GFR/1.73 sq M.predicted MDRD (S/P/Bld) [Vol rate/Area] NOT REPORTED [employer] Phone: Glucose [Mass/Vol] 115 mg/dL High 70 - 99 mg/dL [employer] Phone: Interpretation and review of laboratory results Abnormal [employer] Phone: Potassium [Moles/Vol] 4.0 mmol/L 3.7 - 5.3 mmol/L [employer] Phone: Sodium [Moles/Vol] 143 mmol/L 135 - 144 mmol/L [employer] Phone: Urea nitrogen (BldV) [Mass/Vol] 7 mg/dL 6 - 20 mg/dL [employer] Phone: Urea nitrogen/Creatinine (Bld) [Mass ratio] NOT REPORTED [employer] Phone: [employer] Phone: HCG Qualitative, SerumOrdere d By: César Rodriguez on 09-08-2020 hCG Qual Negative NEGATIVE [employer] Phone: Comment on above: Specimens with hCG l evels near the threshold of the test (25 mIU/mL) may give a negative or indeterminate result. In such cases, another test should be performed with a new specimen in 48-72 hours. If early is suspected clinically in this setting, correlation with quantitative serum b-hCG level is suggested. [employer] has confirmed the use of plasma for this test. This has not been cleared or approved by the U.S. Food and Drug Administration. The FDA has determined that such clearance is not necessary. [employer] Phone: LipaseOrdered By: César tyler on 09-08-2020 Lipase [Catalytic activity/Vol] 35 U/L 13 - 60 U/L [employer] Phone: [employer] Phone: , URINEOrdered By: Alyse Roger on 09-08-2020 Beta HCG ( test) Ql (U) Negative NEGATIVE [employer] Phone: Comment on above: Specimens with hCG l evels near the threshold of the test (25 mIU/mL) may give a negative or indeterminate result. In such cases, another test should be performed with a new specimen in 48-72 hours. If early is suspected clinically in this setting, correlation with quantitative serum b-hCG level is suggested. [employer] Phone: SPECIMEN REJECTIONOrdered By : Alyse Roger on 09-08-2020 - NOT REPORTED [employer] Phone: Ordered Test CP,LIP [employer] Phone: Reason for Rejection Unable to perform testing: Specimen hemolyzed. [employer] Phone: Specimen source Nom (Unsp spec) .BLOOD [employer] Phone: [employer] Phone: URINALYSIS WITH MICROSCOPICO rdered By: Alyse Roger on 09-08-2020 - [employer] Phone: Amorphous, UA NOT REPORTED None [employer] Work Phone: Bacteria, UA MANY Abnormal None [facility] Phone: Bilirubin Urine Negative NEGATIVE [employer] Work Phone: Casts UA 20 TO 50 Reference r magali defined for non-centrifuged specimen. [employer] Phone: Color, UA YELLOW YELLOW [facility] Phone: Crystals, UA NOT REPORTED None /HPF [employer] Work Phone: Epithelial Cells UA 5 TO 10 [facility] Phone: Glucose, Ur Negative NEGATIVE [facility] Phone: Interpretation and review of laboratory results Abnormal [facility] Phone: Ketones Ql (U) Negative NEGATIVE [employer] Work Phone: Leukocyte esterase Test strip Ql (U) SMALL Abnormal NEGATIVE [employer] Phone: Mucus, UA NOT REPORTED None [facility] Phone: Nitrite, Urine Positive Abnormal NEGATIVE [facility] [facility] Work Phone: Other Observations UA NOT REPORTED NOT REQ. [facility] Work Phone: pH, UA 6.0 [facility] Phone: Protein, UA 2+ Abnormal NEGATIVE [facility] Phone: RBC, UA 20 TO 50 [facility] Work Phone: Comment on above: Reference range defi matthew for non-centrifuged specimen. Renal Epithelial, UA NOT REPORTED 0 /HPF Me [facility] [employer] Work Phone: Specific Ulmer, UA 1.018 [facility] [employer] Work Phone: Trichomonas, UA NOT REPORTED None [facility] Work Phone: Turbidity UA CLOUDY Abnormal CLEAR [facility] Phone: Urine Hgb SMALL Abnormal NEGATIVE [facility] Phone: Urobilinogen, Urine Normal Normal [facility] Phone: WBC, UA 50 TO 100 [facility] Phone: Yeast, UA NOT REPORTED None [facility] Phone: [employer] Phone: XR CHEST (2 VW)Ordered By: Alyse Roger on 09-08-2020 Unremarkable radiogr aphic views of the chest. [employer] Work Phone: EXAMINATION: TWO XRA Y VIEWS OF THE CHEST 09/08/2020 5:10 am COMPARISON: Chest portable September 01, 2020. HISTORY: ORDERING SYSTEM PROVIDED HISTORY: Hx bronchitis, L flank pain TECHNOLOGIST PROVIDED HISTORY: Hx bronchitis, L flank pain FINDINGS: The heart is normal in size and configuration. The mediastinal contours are within normal limits. The lungs are well aerated. The pleural surfaces are normal and no evidence of a pleural effusion is seen. Bones and soft tissues are unremarkable. [employer] Work Phone: Froy, Mhpn Incoming Radiant Results From [facility]acs - 09/08/2020 6:21 AM EDT EXAMINATION: TWO XRAY VIEWS OF THE CHEST 09/08/2020 5:10 am COMPARISON: Chest portable September 01, 2020. HISTORY: ORDERING SYSTEM PROVIDED HISTORY: Hx bronchitis, L flank pain TECHNOLOGIST PROVIDED HISTORY: Hx bronchitis, L flank pain FINDINGS: The heart is normal in size and configuration. The mediastinal contours are within normal limits. The lungs are well aerated. The pleural surfaces are normal and no evidence of a pleural effusion is seen. Bones and soft tissues are unremarkable. IMPRESSION: Unremarkable radiographic views of the chest. [employer] Phone: [employer] Phone: COVID-19, RapidOrdered By: Jerome Larsen on 09-02-2020 SARS-CoV-2 (COVID-19) RNA ASHELY+probe Ql (Unsp spec) Not detected Not Detected [facility] Phone: Comment on above: Rapid NAAT: The specimen is NEGATIVE for SARS-CoV-2, the novel coronavirus associated with COVID-19. The ID NOW COVID-19 assay is designed to detect the virus that causes COVID-19 in patients with signs and symptoms of infection who are suspected of COVID-19. An individual without symptoms of COVID-19 and who is not shedding SARS-CoV-2 virus would expect to have a negative (not detected) result in this assay. Negative results should be treated as presumptive and, if inconsistent with clinical signs and symptoms or necessary for patient management, should be tested with an alternative molecular assay. Negative results do not preclude SARS-CoV-2 infection and should not be used as the sole basis for patient management decisions. Fact sheet for Healthcare Providers: https://www.fda.gov/media/674663/download Fact sheet for Patients: https://www.fda.gov/media/409636/download Methodology: Isothermal Nucleic Acid Amplification Specimen Description .NASOPHARYNGEAL SWAB [employer] Phone: [employer] Phone: Comprehensive Metabolic Pane lOrdered By: Georgiana Larsen on 09-02-2020 Albumin [Mass/Vol] 3.8 g/dL 3.5 - 5.2 g/dL [employer] Phone: Albumin/Globulin Ratio NOT REPORTED [facility] Phone: ALP (Bld) [Catalytic activity/Vol] 90 U/L 35 - 104 U/L [employer] Phone: ALT [Catalytic activity/Vol] 14 U/L 5 - 33 U/L [employer] Phone: Anion gap [Moles/Vol] 13 mmol/L 9 - 17 mmol/L [employer] Phone: AST [Catalytic activity/Vol] 13 U/L <32 [employer] Phone: Bilirubin [Mass/Vol] mg/dL Low 0.3 - 1 .2 mg/dL [employer] Phone: Calcium [Mass/Vol] 9.4 mg/dL 8.6 - 10. 4 mg/dL [employer] Phone: Chloride [Moles/Vol] 104 mmol/L 98 - 10 7 mmol/L [employer] Phone: CO2 [Moles/Vol] 19 mmol/L Low 20 - 31 mmol/L [employer] Phone: Creatinine [Mass/Vol] 0.51 mg/dL 0.50 - 0.90 mg/dL [employer] Phone: Free PSA/Total PSA [Mass fraction] 7.4 g/dL 6.4 - 8.3 g/dL [employer] Phone: GFR >60 >60 mL/min [employer] Phone: GFR Non- >60 >60 mL/min [employer] Phone: GFR/1.73 sq M.predicted MDRD (S/P/Bld) [Vol rate/Area] [employer] Phone: Comment on above: Average GFR for 20-2 9 years old: 116 mL/min/1.73sq m Chronic Kidney Disease: <60 mL/min/1.73sq m Kidney failure: <15 mL/min/1.73sq m eGFR calculated using average adult body mass. Additional eGFR calculator available at: http://www.[employer]multiple_crcl_2012.htm GFR/1.73 sq M.predicted MDRD (S/P/Bld) [Vol rate/Area] NOT REPORTED [employer] Phone: Glucose [Mass/Vol] 210 mg/dL High 70 - 99 mg/dL [employer] Phone: Interpretation and review of laboratory results Abnormal [employer] Phone: Potassium [Moles/Vol] 4.3 mmol/L 3.7 - 5.3 mmol/L [employer] Phone: Sodium [Moles/Vol] 136 mmol/L 135 - 144 mmol/L [employer] Phone: Urea nitrogen (BldV) [Mass/Vol] 7 mg/dL 6 - 20 mg/dL [employer] Phone: Urea nitrogen/Creatinine (Bld) [Mass ratio] NOT REPORTED [employer] Phone: [employer] Phone: D-Dimer TestOrdered By: Edwin Larsen on 09-02-2020 D-Dimer, Quant 0.36 [employer] Phone: Comment on above: When combined with a low clinical probability, a D dimer value of <0.50 mg/L FEU is considered negative for DVT and PE (negative predictive value of 98%, sensitivity of 97%). If this test is not being used to help rule out DVT and PE, then the following reference range should be utilized: 0.00 - 0.59 mg/L FEU. The D-Dimer assay is intended for use as an aid in the diagnosis of venous thromboembolism (DVT and PE) and the results should be interpreted in conjunction with the patient's medical history, clinical presentation, and other findings. Elevated levels of D-dimer activity can be seen in any state of coagulation activation and is not recommended in patients with therapeutic dose anticoagulant therapy for >24 hours, fibrinolytic therapy within the previous 7 days, trauma or surgery within the previous 4 weeks, disseminated malignancies, aortic aneurysm, sepsis, severe infections, pneumonia, severe skin infections, liver cirrhosis, advanced age, coronary disease, diabetes, and . A very low percentage of patients with DVT may yield D-dimer results below the cutoff of 0.5 mg/L FEU. This is known to be more prevalent in patients with distal DVT. [employer] Phone: HCG Screen, BloodOrdered By: Georgiana Larsen on 09-02-2020 hCG Qual Negative NEGATIVE [employer] Phone: Comment on above: Specimens with hCG l evels near the threshold of the test (25 mIU/mL) may give a negative or indeterminate result. In such cases, another test should be performed with a new specimen in 48-72 hours. If early is suspected clinically in this setting, correlation with quantitative serum b-hCG level is suggested. [employer] Phone: TroponinOrdered By: Georgiana brock on 09-02-2020 Troponin Interp NOT REPORTED [facility] Work Phone: Troponin T NOT REPORTED <0.03 ng/mL [facility] [employer] Work Phone: Troponin, High Sensitivity <6 0 - 14 ng/L [employer] Phone: Comment on above: High Sensitivity Troponin values cannot be compared with other Troponin methodologies. Patients with high levels of Biotin oral intake (i.e >5mg/day) may have falsely decreased Troponin levels. Samples collected within 8 hours of biotin intake may require additional information for diagnosis. [employer] Phone: HCG Qualitative, SerumOrdere d By: Flakito Castro on 09-01-2020 hCG Qual Negative NEGATIVE [employer] Phone: Comment on above: Specimens with hCG l evels near the threshold of the test (25 mIU/mL) may give a negative or indeterminate result. In such cases, another test should be performed with a new specimen in 48-72 hours. If early is suspected clinically in this setting, correlation with quantitative serum b-hCG level is suggested. [employer] has confirmed the use of plasma for this test. This has not been cleared or approved by the U.S. Food and Drug Administration. The FDA has determined that such clearance is not necessary. [employer] Phone: XR CHEST PORTABLEOrdered By: Flakito Castro on 09-01-2020 No acute process. [employer] Work Phone: EXAMINATION: ONE XRA Y VIEW OF THE CHEST 09/01/2020 10:39 am COMPARISON: 12/17/2019 HISTORY: ORDERING SYSTEM PROVIDED HISTORY: subjective fever, sputum, hemoptysis TECHNOLOGIST PROVIDED HISTORY: subjective fever, sputum, hemoptysis Reason for Exam: portable, upright FINDINGS: The lungs are without acute focal process. There is no effusion or pneumothorax. The cardiomediastinal silhouette is without acute process. The osseous structures are without acute process. [employer] Phone: Froy, pn Incoming Radiant Results From [employer] [facility] - 09/01/2020 1:54 PM EDT EXAMINATION: ONE XRAY VIEW OF THE CHEST 09/01/2020 10:39 am COMPARISON: 12/17/2019 HISTORY: ORDERING SYSTEM PROVIDED HISTORY: subjective fever, sputum, hemoptysis TECHNOLOGIST PROVIDED HISTORY: subjective fever, sputum, hemoptysis Reason for Exam: portable, upright FINDINGS: The lungs are without acute focal process. There is no effusion or pneumothorax. The cardiomediastinal silhouette is without acute process. The osseous structures are without acute process. IMPRESSION: No acute process. [employer] Phone: [employer] Phone: , URINEOrdered By: Alix Mercedes on 08-28-2020 Beta HCG ( test) Ql (U) Negative NEGATIVE [employer] Phone: Comment on above: Specimens with hCG l evels near the threshold of the test (25 mIU/mL) may give a negative or indeterminate result. In such cases, another test should be performed with a new specimen in 48-72 hours. If early is suspected clinically in this setting, correlation with quantitative serum b-hCG level is suggested. [employer] Phone: XR ANKLE LEFT (MIN 3 VIEWS)O rdered By: Alix Mercedes on 08-28-2020 Unremarkable radiogr aphic views of the left ankle. [employer] Phone: EXAMINATION: THREE X RAY VIEWS OF THE LEFT ANKLE 08/28/2020 12:22 am COMPARISON: Ankle left minimum three views May 10, 2020. HISTORY: ORDERING SYSTEM PROVIDED HISTORY: fall, TTP lateral mall, no bear weight TECHNOLOGIST PROVIDED HISTORY: fall, TTP lateral mall, no bear weight Reason for Exam: lateral mal pain FINDINGS: The ankle mortise is symmetric and intact. No evidence of acute fracture, dislocation or subluxation is identified. Bone mineralization is within normal limits. Surrounding soft tissues are unremarkable. [employer] Phone: Froy, pn Incoming Radiant Results From [employer] - 08/28/2020 1:52 AM EDT EXAMINATION: THREE XRAY VIEWS OF THE LEFT ANKLE 08/28/2020 12:22 am COMPARISON: Ankle left minimum three views May 10, 2020. HISTORY: ORDERING SYSTEM PROVIDED HISTORY: fall, TTP lateral mall, no bear weight TECHNOLOGIST PROVIDED HISTORY: fall, TTP lateral mall, no bear weight Reason for Exam: lateral mal pain FINDINGS: The ankle mortise is symmetric and intact. No evidence of acute fracture, dislocation or subluxation is identified. Bone mineralization is within normal limits. Surrounding soft tissues are unremarkable. IMPRESSION: Unremarkable radiographic views of the left ankle. [employer] Phone: [employer] Phone: No Panel InformationOrdered By: Magdy Mireles on 08-25-2020 1. No evidence of an acute fracture or traumatic malalignment involving the left wrist or left hand [employer] Phone: EXAMINATION: 4 XRAY VIEWS OF THE LEFT WRIST; THREE XRAY VIEWS OF THE LEFT HAND 08/24/2020 6:14 pm COMPARISON: None. HISTORY: ORDERING SYSTEM PROVIDED HISTORY: Left hand and wrist pain, anatomical snuffbox tenderness TECHNOLOGIST PROVIDED HISTORY: Left hand and wrist pain, anatomical snuffbox tenderness Reason for Exam: heard a pop in left wrist while changing a tire pain to lateral aspect FINDINGS: Four views of the left wrist demonstrate no evidence of an acute fracture or traumatic malalignment. Soft tissues appear normal. Joint spaces are preserved. Three views of the left hand demonstrate normal alignment of the osseous structures. No evidence of an acute fracture or foreign body is present. Joint spaces are preserved. [employer] Phone: Froy, pn Incoming Radiant Results From [employer] Out - 08/25/2020 12:58 AM EDT EXAMINATION: 4 XRAY VIEWS OF THE LEFT WRIST; THREE XRAY VIEWS OF THE LEFT HAND 08/24/2020 6:14 pm COMPARISON: None. HISTORY: ORDERING SYSTEM PROVIDED HISTORY: Left hand and wrist pain, anatomical snuffbox tenderness TECHNOLOGIST PROVIDED HISTORY: Left hand and wrist pain, anatomical snuffbox tenderness Reason for Exam: heard a pop in left wrist while changing a tire pain to lateral aspect FINDINGS: Four views of the left wrist demonstrate no evidence of an acute fracture or traumatic malalignment. Soft tissues appear normal. Joint spaces are preserved. Three views of the left hand demonstrate normal alignment of the osseous structures. No evidence of an acute fracture or foreign body is present. Joint spaces are preserved. IMPRESSION: 1. No evidence of an acute fracture or traumatic malalignment involving the left wrist or left hand [employer] Phone: [employer] Phone: Basic Metabolic Panel w/ Ref veronica to MGon 04-23-2020 Anion gap [Moles/Vol] 9 mmol/L 9 - 17 mmol/L [employer] Phone: Bun/Cre Ratio NOT REPORTED [employer] Work Phone: Calcium [Mass/Vol] 9.8 mg/dL 8.6 - 10. 4 mg/dL [employer] Phone: Chloride [Moles/Vol] 101 mmol/L 98 - 10 7 mmol/L [employer] Phone: CO2 [Moles/Vol] 24 mmol/L 20 - 31 mmol/L [employer] Phone: Creatinine [Mass/Vol] 0.59 mg/dL 0.50 - 0.90 mg/dL [employer] Phone: GFR >60 >60 mL/min [employer] Phone: GFR Non- >60 >60 mL/min [employer] Phone: GFR/1.73 sq M predicted among non-blacks MDRD (S/P/Bld) [Vol rate/Area] [employer] Phone: Comment on above: Average GFR for 20-2 9 years old: 116 mL/min/1.73sq m Chronic Kidney Disease: <60 mL/min/1.73sq m Kidney failure: <15 mL/min/1.73sq m eGFR calculated using average adult body mass. Additional eGFR calculator available at: http://www.[employer]/multiple_crcl_2012.htm GFR/1.73 sq M predicted among non-blacks MDRD (S/P/Bld) [Vol rate/Area] NOT REPORTED [employer] Phone: Glucose [Mass/Vol] 113 mg/dL High 70 - 99 mg/dL [employer] Phone: Interpretation and review of laboratory results Abnormal [employer] Phone: Potassium [Moles/Vol] 3.4 mmol/L Low 3.7 - 5.3 mmol/L [employer] Phone: Sodium [Moles/Vol] 134 mmol/L Low 135 - 144 mmol/L [employer] Phone: Urea nitrogen [Mass/Vol] 7 mg/dL 6 - 20 mg/dL [employer] Phone: CBC Auto Differentialon 03-0 Basophils (Bld) [#/Vol] 0.05 10*3/uL [employer] Phone: Basophils/100 WBC (Bld) 1 % 0 - 2 % [employer] Phone: Differential Type NOT REPORTED [employer] Phone: Eosinophils (Bld) [#/Vol] 0.22 10*3/uL [employer] Phone: Eosinophils/100 WBC (Bld) 2 % 1 - 4 % [employer] Phone: Erythrocyte distribution width (RBC) [Ratio] 17.2 % High 11.8 - 14.4 % [employer] Phone: Hematocrit (Bld) [Volume fraction] 43.0 % 36.3 - 47.1 % [employer] Phone: Hemoglobin (Bld) [Mass/Vol] 13.4 g/dL 11.9 - 15.1 g/dL [employer] Phone: Immature granulocytes (Bld) [#/Vol] 10*3/uL [employer] Phone: Immature granulocytes (Bld) [#/Vol] 0 % 0 [employer] Phone: Interpretation and review of laboratory results Abnormal [employer] Phone: Lymphocytes (Bld) [#/Vol] 3.70 10*3/uL [employer] Phone: Lymphocytes/100 WBC (Bld) 34 % 24 - 43 % [employer] Phone: MCH (RBC) [Entitic mass] 25.1 pg Low 25.2 - 33.5 pg [employer] Work Phone: MCHC (RBC) [Mass/Vol] 31.2 g/dL 28.4 - 34.8 g/dL [employer] Work Phone: MCV (RBC) [Entitic vol] 80.7 fL Low 82.6 - 102.9 fL [employer] Work Phone: Monocytes (Bld) [#/Vol] 0.77 10*3/uL [employer] Work Phone: Monocytes/100 WBC (Bld) 7 % 3 - 12 % [employer] Work Phone: Platelet mean volume (Bld) [Entitic vol] 11.6 fL 8.1 - 13.5 fL [employer] Work Phone: Platelets (Bld) [#/Vol] 306 10*3/uL [employer] Work Phone: Platelets (Bld) [#/Vol] NOT REPORTED [employer] Work Phone: RBC (Bld) [#/Vol] 5.33 10*6/uL High 3.95 - 5.1 1 m/uL [employer] Work Phone: RBC morphology finding Nom (Bld) ANISOCYTOSIS PRESENT [facility] Work Phone: Comment on above: MICROCYTOSIS PRESENT Segmented neutrophils/100 WBC (Bld) 56 % 36 - 65 % [employer] Work Phone: Segs Absolute 6.29 [facility] Work Phone: WBC (Bld) [#/Vol] 0.0 10*3/uL 0.0 per 10 0 WBC [employer] Work Phone: WBC (Bld) [#/Vol] 11.1 10*3/uL [employer] Work Phone: WBC Morphology NOT REPORTED [employer] [facility] Work Phone: CT ABDOMEN PELVIS W IV CONTR AST Additional Contrast? Noneon 04-23-2020 EXAMINATION: CT OF T HE ABDOMEN AND PELVIS WITH CONTRAST 04/23/2020 1:17 am TECHNIQUE: CT of the abdomen and pelvis was performed with the administration of intravenous contrast. Multiplanar reformatted images are provided for review. Dose modulation, iterative reconstruction, and/or weight based adjustment of the mA/kV was utilized to reduce the radiation dose to as low as reasonably achievable. COMPARISON: 08/09/2019 HISTORY: ORDERING SYSTEM PROVIDED HISTORY: RLQ pain. Hx of PCOS TECHNOLOGIST PROVIDED HISTORY: RLQ pain. Hx of PCOS Decision Support Exception->Emergency Medical Condition (MA) Reason for Exam: RLQ pain. Hx of PCOS Acuity: Acute Type of Exam: Initial FINDINGS: Lower Chest: Lung bases clear. Organs: Unremarkable liver, spleen, pancreas, adrenals, and bilateral kidneys. GI/Bowel: No definite cholelithiasis. Normal appendix. Nonobstructed bowel loops. Pelvis: No adnexal mass. Incompletely distended urinary bladder. Peritoneum/Retroperitoneu m: No free air or free fluid. No adenopathy. Intact abdominal aorta and its major branches. Bones/Soft Tissues: Intact osseous structures. [employer] Work Phone: No acute finding in the abdomen and pelvis. Normal appendix. [employer] Work Phone: Froy, Mhpn Incoming Radiant Results From [employer] - 04/23/2020 2:01 AM EST EXAMINATION: CT OF THE ABDOMEN AND PELVIS WITH CONTRAST 04/23/2020 1:17 am TECHNIQUE: CT of the abdomen and pelvis was performed with the administration of intravenous contrast. Multiplanar reformatted images are provided for review. Dose modulation, iterative reconstruction, and/or weight based adjustment of the mA/kV was utilized to reduce the radiation dose to as low as reasonably achievable. COMPARISON: 08/09/2019 HISTORY: ORDERING SYSTEM PROVIDED HISTORY: RLQ pain. Hx of PCOS TECHNOLOGIST PROVIDED HISTORY: RLQ pain. Hx of PCOS Decision Support Exception->Emergency Medical Condition (MA) Reason for Exam: RLQ pain. Hx of PCOS Acuity: Acute Type of Exam: Initial FINDINGS: Lower Chest: Lung bases clear. Organs: Unremarkable liver, spleen, pancreas, adrenals, and bilateral kidneys. GI/Bowel: No definite cholelithiasis. Normal appendix. Nonobstructed bowel loops. Pelvis: No adnexal mass. Incompletely distended urinary bladder. Peritoneum/Retroperitoneu m: No free air or free fluid. No adenopathy. Intact abdominal aorta and its major branches. Bones/Soft Tissues: Intact osseous structures. IMPRESSION: No acute finding in the abdomen and pelvis. Normal appendix. [employer] Phone: HCG Qualitative, Serumon hCG Qual Negative NEGATIVE [employer] Phone: Comment on above: Specimens with hCG l evels near the threshold of the test (25 mIU/mL) may give a negative or indeterminate result. In such cases, another test should be performed with a new specimen in 48-72 hours. If early is suspected clinically in this setting, correlation with quantitative serum b-hCG level is suggested. [employer] has confirmed the use of plasma for this test. This has not been cleared or approved by the U.S. Food and Drug Administration. The FDA has determined that such clearance is not necessary. Hepatic Function Panelon Albumin [Mass/Vol] 3.9 g/dL 3.5 - 5.2 g/dL [employer] Phone: Albumin/Globulin [Mass ratio] 1.0 {ratio} [employer] Phone: ALP [Catalytic activity/Vol] 90 U/L 35 - 104 U/L [employer] Phone: ALT [Catalytic activity/Vol] 10 U/L 5 - 33 U/L [employer] Phone: AST [Catalytic activity/Vol] 11 U/L <32 [employer] Phone: Bilirubin Ql (U) 0.16 mg/dL Low 0.3 - 1.2 mg/dL [employer] Phone: Bilirubin, Indirect 0.07 mg/dL 0.00 - 1 .00 mg/dL [employer] Phone: Bilirubin.direct [Mass/Vol] 0.09 mg/dL <0.31 [employer] Phone: Globulin (S) [Mass/Vol] NOT REPORTED 1.5 - 3.8 g/dL [employer] Phone: Interpretation and review of laboratory results Abnormal [employer] Phone: Protein [Mass/Vol] 7.9 g/dL 6.4 - 8.3 g/dL [employer] Phone: Lipaseon 04-23-2020 Lipase [Catalytic activity/Vol] 25 U/L 13 - 60 U/L [employer] Phone: Magnesiumon 04-23-2020 Magnesium [Mass/Vol] 1.7 mg/dL 1.6 - 2 .6 mg/dL [employer] Phone: Otheron 04-23-2020 Froy, Mhpn Incoming Radiant Results From [employer] - 04/23/2020 4:11 AM EST EXAMINATION: PELVIC ULTRASOUND; ULTRASOUND OF THE SCROTUM/TESTICLES WITH COLOR DOPPLER FLOW EVALUATION 04/23/2020 TECHNIQUE: Transvaginal pelvic ultrasound was performed. Color Doppler evaluation was performed. COMPARISON: CT abdomen and pelvis with contrast April 23, 2020. HISTORY: ORDERING SYSTEM PROVIDED HISTORY: RLQ pain, PCOS r/o torsion TECHNOLOGIST PROVIDED HISTORY: RLQ pain, PCOS r/o torsion FINDINGS: Measurements: Uterus: 8.1 cm in length and anteverted in position. Endometrial stripe: 5.3 mm Right Ovary: 1.8 x 2.1 x 2.5 cm Left Ovary: 2.0 x 1.2 x 1.3 cm Ultrasound Findings: Uterus: Uterus demonstrates normal myometrial echotexture. Endometrial stripe: Endometrial stripe is within normal limits. Right Ovary: Right ovary is within normal limits. There is normal arterial and venous doppler flow. Left Ovary: Left ovary is within normal limits. There is normal arterial and venous doppler flow. Free Fluid: No evidence of free fluid. IMPRESSION: Unremarkable pelvic ultrasound. No sonographic evidence of ovarian torsion. No evidence of PCOS. [employer] Phone: EXAMINATION: PELVIC ULTRASOUND; ULTRASOUND OF THE SCROTUM/TESTICLES WITH COLOR DOPPLER FLOW EVALUATION 04/23/2020 TECHNIQUE: Transvaginal pelvic ultrasound was performed. Color Doppler evaluation was performed. COMPARISON: CT abdomen and pelvis with contrast April 23, 2020. HISTORY: ORDERING SYSTEM PROVIDED HISTORY: RLQ pain, PCOS r/o torsion TECHNOLOGIST PROVIDED HISTORY: RLQ pain, PCOS r/o torsion FINDINGS: Measurements: Uterus: 8.1 cm in length and anteverted in position. Endometrial stripe: 5.3 mm Right Ovary: 1.8 x 2.1 x 2.5 cm Left Ovary: 2.0 x 1.2 x 1.3 cm Ultrasound Findings: Uterus: Uterus demonstrates normal myometrial echotexture. Endometrial stripe: Endometrial stripe is within normal limits. Right Ovary: Right ovary is within normal limits. There is normal arterial and venous doppler flow. Left Ovary: Left ovary is within normal limits. There is normal arterial and venous doppler flow. Free Fluid: No evidence of free fluid. [employer] Phone: Unremarkable pelvic ultrasound. No sonographic evidence of ovarian torsion. No evidence of PCOS. [employer] Phone: Direct Exam Negative [employer] Phone: URINALYSIS WITH MICROSCOPICo n 04-23-2020 Amorphous, UA NOT REPORTED None [employer] Work Phone: Bacteria, UA MANY Abnormal None [employer] Phone: Bilirubin Urine Negative NEGATIVE [employer] Work Phone: Casts UA 5 TO 10 HYALINE Refe rence range defined for non-centrifuged specimen. [employer] Phone: Color, UA YELLOW YELLOW [employer] Phone: Crystals, UA CALCIUM OXALATE Abnormal None /HPF [facility] Work Phone: Crystals, UA MANY Abnormal None /HPF [employer] Phone: Epithelial Cells UA 10 TO 20 [employer] Phone: Glucose, Ur Negative NEGATIVE [facility] Work Phone: Interpretation and review of laboratory results Abnormal [facility] [employer] Work Phone: Ketones Ql (U) TRACE Abnormal NEGATIVE [facility] Work Phone: Leukocyte esterase Test strip Ql (U) MODERATE Abnormal NEGATIVE [facility] [employer] Work Phone: Mucus, UA NOT REPORTED None [facility] [employer] Work Phone: Nitrite, Urine Negative NEGATIVE [facility] Work Phone: Other Observations UA NOT REPORTED NOT REQ. [facility] [employer] Work Phone: pH, UA 6.0 [facility] [employer] Work Phone: Protein (U) [Mass/Vol] 1+ Abnormal NEGATIVE [facility] Work Phone: RBC (U) [#/Vol] 2 TO 5 [facility] Work Phone: Comment on above: Reference range defi matthew for non-centrifuged specimen. Renal Epithelial, UA NOT REPORTED 0 /HPF Me [facility] [employer] Work Phone: Specific Ulmer, UA 1.027 [facility] [employer] Work Phone: Trichomonas, UA NOT REPORTED None [facility] [employer] Work Phone: Turbidity UA TURBID Abnormal CLEAR [facility] [employer] Work Phone: Urine Hgb TRACE Abnormal NEGATIVE [facility] [employer] Work Phone: Urobilinogen, Urine Normal Normal [facility] [employer] Work Phone: WBC, UA TOO NUMEROUS TO COUNT [facility] Work Phone: Yeast, UA NOT REPORTED None [facility] [employer] Work Phone: - [facility] [employer] Work Phone: VAGINITIS DNA PROBEon 2020 Direct Exam Method of testing is a DNA probe intended for detection and identification of Manuela species, Gardnerella vaginalis, and Trichomonas vaginalis nucleic acid in vaginal fluid specimens from patients with symptoms of vaginitis/vaginosis. [employer] Phone: Direct Exam Positive Abnormal [employer] Phone: Interpretation and review of laboratory results Abnormal [employer] Phone: Special Requests NOT REPORTED [employer] Phone: Specimen Description .VAGINA [employer] Phone: XR CHEST (2 VW)on 12-17-2019 No significant abnormalities detected. [employer] EXAMINATION: TWO XRA Y VIEWS OF THE CHEST 12/17/2019 8:58 pm COMPARISON: 12/01/2019 HISTORY: ORDERING SYSTEM PROVIDED HISTORY: Cough, reproducible chest pain TECHNOLOGIST PROVIDED HISTORY: Cough, reproducible chest pain FINDINGS: The cardiomediastinal silhouette is normal. No focal consolidation. The pulmonary vascularity is normal. There is no pleural effusion or pneumothorax. Osseous structures grossly intact. [facility] [place] F[place], Mhpn Incoming Radiant Results From [employer] - 12/17/2019 9:11 PM EDT EXAMINATION: TWO XRAY VIEWS OF THE CHEST 12/17/2019 8:58 pm COMPARISON: 12/01/2019 HISTORY: ORDERING SYSTEM PROVIDED HISTORY: Cough, reproducible chest pain TECHNOLOGIST PROVIDED HISTORY: Cough, reproducible chest pain FINDINGS: The cardiomediastinal silhouette is normal. No focal consolidation. The pulmonary vascularity is normal. There is no pleural effusion or pneumothorax. Osseous structures grossly intact. IMPRESSION: No significant abnormalities detected. [employer] [place] ROX[employer] XR CHEST PORTABLEon 12-01-19 20 No acute process. [facility] EXAMINATION: ONE XRA Y VIEW OF THE CHEST 12/01/2019 1:03 am COMPARISON: November 28, 2019 HISTORY: ORDERING SYSTEM PROVIDED HISTORY: cough TECHNOLOGIST PROVIDED HISTORY: cough Reason for Exam: cough Acuity: Acute Type of Exam: Initial Additional signs and symptoms: Cough, hemoptysis Relevant Medical/Surgical History: Cough, hemoptysis FINDINGS: The lungs are without acute focal process. There is no effusion or pneumothorax. The cardiomediastinal silhouette is without acute process. The osseous structures are without acute process. [place], [place] Froy, Mhpn Incoming Radiant Results From [employer] - 12/01/2019 1:09 AM EDT EXAMINATION: ONE XRAY VIEW OF THE CHEST 12/01/2019 1:03 am COMPARISON: November 28, 2019 HISTORY: ORDERING SYSTEM PROVIDED HISTORY: cough TECHNOLOGIST PROVIDED HISTORY: cough Reason for Exam: cough Acuity: Acute Type of Exam: Initial Additional signs and symptoms: Cough, hemoptysis Relevant Medical/Surgical History: Cough, hemoptysis FINDINGS: The lungs are without acute focal process. There is no effusion or pneumothorax. The cardiomediastinal silhouette is without acute process. The osseous structures are without acute process. IMPRESSION: No acute process. [place] Troponinon 11-29-2019 Troponin I.cardiac [Mass/Vol] NOT REPORTED [place] Troponin T.cardiac [Mass/Vol] NOT REPORTED <0.03 ng/mL [place] Troponin, High Sensitivity <6 0 - 14 ng/L [place] Comment on above: High Sensitivity Troponin values cannot be compared with other Troponin methodologies. Patients with high levels of Biotin oral intake (i.e >5mg/day) may have falsely decreased Troponin levels. Samples collected within 8 hours of biotin intake may require additional information for diagnosis. Troponin I.cardiac [Mass/Vol] NOT REPORTED [place] Troponin T.cardiac [Mass/Vol] NOT REPORTED <0.03 ng/mL [place] Troponin, High Sensitivity <6 0 - 14 ng/L [place] Comment on above: High Sensitivity Troponin values cannot be compared with other Troponin methodologies. Patients with high levels of Biotin oral intake (i.e >5mg/day) may have falsely decreased Troponin levels. Samples collected within 8 hours of biotin intake may require additional information for diagnosis. BASIC METABOLIC PANELon 11-17 Anion gap [Moles/Vol] 11 mmol/L 9 - 17 mmol/L [place] Bun/Cre Ratio NOT REPORTED [place], [place] Calcium [Mass/Vol] 9.2 mg/dL 8.6 - 10. 4 mg/dL [place] Chloride [Moles/Vol] 104 mmol/L 98 - 10 7 mmol/L [place] CO2 [Moles/Vol] 24 mmol/L 20 - 31 mmol/L [place] Creatinine [Mass/Vol] 0.51 mg/dL 0.5 - 0.9 mg/dL [place] GFR >60 >60 mL/min [place] GFR Non- >60 >60 mL/min [place] GFR/1.73 sq M predicted among non-blacks MDRD (S/P/Bld) [Vol rate/Area] NOT REPORTED [place] GFR/1.73 sq M predicted among non-blacks MDRD (S/P/Bld) [Vol rate/Area] [place] Comment on above: Average GFR for 20-2 9 years old: 116 mL/min/1.73sq m Chronic Kidney Disease: <60 mL/min/1.73sq m Kidney failure: <15 mL/min/1.73sq m eGFR calculated using average adult body mass. Additional eGFR calculator available at: http://www.[employer]multiple_crcl_2011.htm Glucose [Mass/Vol] 136 mg/dL High 70 - 99 mg/dL [place] Interpretation and review of laboratory results Abnormal [place] Potassium [Moles/Vol] 3.8 mmol/L 3.7 - 5.3 mmol/L [place] Sodium [Moles/Vol] 139 mmol/L 135 - 144 mmol/L [place] Urea nitrogen [Mass/Vol] 6 mg/dL 6 - 20 mg/dL [place] CBC Auto Differentialon 11-17 Basophils (Bld) [#/Vol] 0.05 10*3/uL [place] Basophils/100 WBC (Bld) 0 % 0 - 2 % [place] Differential Type NOT REPORTED [place] Eosinophils (Bld) [#/Vol] 0.18 10*3/uL [place] Eosinophils/100 WBC (Bld) 1 % 1 - 4 % [place] Erythrocyte distribution width (RBC) [Ratio] 16.7 % High 11.8 - 14.4 % [place] Hematocrit (Bld) [Volume fraction] 39.5 % 36.3 - 47.1 % [place] Hemoglobin (Bld) [Mass/Vol] 12.5 g/dL 11.9 - 15.1 g/dL [place] Immature granulocytes (Bld) [#/Vol] 0 % 0 [place] Immature granulocytes (Bld) [#/Vol] 0.05 10*3/uL [place] Interpretation and review of laboratory results Abnormal [place] Lymphocytes (Bld) [#/Vol] 1.65 10*3/uL [place] Lymphocytes/100 WBC (Bld) 13 % Low 24 - 43 % [place] MCH (RBC) [Entitic mass] 26.7 pg 25.2 - 33.5 pg [place] MCHC (RBC) [Mass/Vol] 31.6 g/dL 28.4 - 34.8 g/dL [place] MCV (RBC) [Entitic vol] 84.2 fL 82.6 - 102.9 fL [place] Monocytes (Bld) [#/Vol] 1.07 10*3/uL [place] Monocytes/100 WBC (Bld) 8 % 3 - 12 % [place] Platelet mean volume (Bld) [Entitic vol] 11.7 fL 8.1 - 13.5 fL [place] Platelets (Bld) [#/Vol] 209 10*3/uL [place] Platelets (Bld) [#/Vol] NOT REPORTED [place] RBC (Bld) [#/Vol] 4.69 10*6/uL 3.95 - 5.1 1 m/uL [place] RBC morphology finding Nom (Bld) ANISOCYTOSIS PRESENT [place] Segmented neutrophils/100 WBC (Bld) 78 % High 36 - 65 % [place] Segs Absolute 9.91 [place] WBC (Bld) [#/Vol] 12.9 10*3/uL [place] WBC (Bld) [#/Vol] 0.0 10*3/uL 0.0 per 10 0 WBC [place] WBC Morphology NOT REPORTED [place] D-DIMER, QUANTITATIVEon 11-17 D-Dimer, Quant 0.27 mg/L FEU [place] Comment on above: When combined with a low clinical probability, a D dimer value of <0.50 mg/L FEU is considered negative for DVT and PE (negative predictive value of 98%, sensitivity of 97%). If this test is not being used to help rule out DVT and PE, then the following reference range should be utilized: 0.00 - 1.02 mg/L FEU. The [employer] D-Dimer assay is intended for use as an aid in the diagnosis of venous thromboembolism (DVT and PE) and the results should be interpreted in conjunction with the patient's medical history, clinical presentation, and other findings. Elevated levels of D-dimer activity can be seen in any state of coagulation activation and is not recommended in patients with therapeutic dose anticoagulant therapy for >24 hours, fibrinolytic therapy within the previous 7 days, trauma or surgery within the previous 4 weeks, disseminated malignancies, aortic aneurysm, sepsis, severe infections, pneumonia, severe skin infections, liver cirrhosis, advanced age, coronary disease, diabetes, and . A very low percentage of patients with DVT may yield D-dimer results below the cutoff of 0.5 mg/L FEU. This is known to be more prevalent in patients with distal DVT. HCG Qualitative, Serumon hCG Qual Negative NEGATIVE [place] Comment on above: Specimens with hCG l evels near the threshold of the test (25 mIU/mL) may give a negative or indeterminate result. In such cases, another test should be performed with a new specimen in 48-72 hours. If early is suspected clinically in this setting, correlation with quantitative serum b-hCG level is suggested. [employer] has confirmed the use of plasma for this test. This has not been cleared or approved by the U.S. Food and Drug Administration. The FDA has determined that such clearance is not necessary. SPECIMEN REJECTIONon 020 Ordered Test CDP [place] Reason for Rejection Unable to perform testing: Specimen clotted. [place] Specimen source Nom (Unsp spec) .BLOOD [place] - NOT REPORTED [place] XR CHEST PORTABLEon 11-28-19 EXAMINATION: ONE XRA Y VIEW OF THE CHEST 11/28/2019 9:54 pm COMPARISON: None. HISTORY: ORDERING SYSTEM PROVIDED HISTORY: chest pain, shortness of breath TECHNOLOGIST PROVIDED HISTORY: chest pain, shortness of breath Reason for Exam: upr Acuity: Unknown Type of Exam: Unknown FINDINGS: The lungs are clear. The cardiac and mediastinal contours are normal. There is no pleural effusion or pneumothorax. No acute osseous abnormality is identified. [place] No acute cardiopulmo nary abnormality. [place], [place] Incoming Radiant Results From [facility] - 11/28/2019 10:21 PM EDT EXAMINATION: ONE XRAY VIEW OF THE CHEST 11/28/2019 9:54 pm COMPARISON: None. HISTORY: ORDERING SYSTEM PROVIDED HISTORY: chest pain, shortness of breath TECHNOLOGIST PROVIDED HISTORY: chest pain, shortness of breath Reason for Exam: upr Acuity: Unknown Type of Exam: Unknown FINDINGS: The lungs are clear. The cardiac and mediastinal contours are normal. There is no pleural effusion or pneumothorax. No acute osseous abnormality is identified. IMPRESSION: No acute cardiopulmonary abnormality. [place] Strep Gr A Direct Agon 09-09 Strep Gr A Direct Ag Specimen Descriptio n .THROAT Special Requests NOT REPORTED Direct Exam Rapid Strep A negative. A negative Rapid Group A Strep Screen result does not rule out the possibility of Group A Streptococci in the specimen. A Group A Strep DNA test is available upon request. Report Status FINAL 09/10/2019 Normal [facility] Comment on above: Performed By: #### S GPA #### [facility] [address] [place] [address] Hall Clerk: Shabbir Torres MD CT Chest Pulmonary Embolism W Contraston 08-09-2019 EXAMINATION: CTA OF THE CHEST 08/09/2019 12:59 am TECHNIQUE: CTA of the chest was performed after the administration of intravenous contrast. Multiplanar reformatted images are provided for review. MIP images are provided for review. Dose modulation, iterative reconstruction, and/or weight based adjustment of the mA/kV was utilized to reduce the radiation dose to as low as reasonably achievable. COMPARISON: None. HISTORY: ORDERING SYSTEM PROVIDED HISTORY: cp TECHNOLOGIST PROVIDED HISTORY: cp Reason for Exam: Patient c/o CP with all over itchiness in her body since earlier today, no known hx of PE and no abdominal complaints Acuity: Acute Type of Exam: Initial FINDINGS: Pulmonary Arteries: Pulmonary arteries are adequately opacified for evaluation. No evidence of intraluminal filling defect to suggest pulmonary embolism. Main pulmonary artery is normal in caliber. Mediastinum: The heart is not enlarged. No pericardial effusion. No mediastinal mass. Lungs/pleura: No airspace consolidation. Multifocal dependent ground-glass opacities possibly represent atelectasis, edema, or infectious/inflammatory process. Upper Abdomen: See separate abdomen pelvis CT. Soft Tissues/Bones: No acute bone or soft tissue abnormality. [facility] [place], [place], [facility] Incoming Radiant Results From [facility] - 08/09/2019 1:51 AM EDT EXAMINATION: CTA OF THE CHEST 08/09/2019 12:59 am TECHNIQUE: CTA of the chest was performed after the administration of intravenous contrast. Multiplanar reformatted images are provided for review. MIP images are provided for review. Dose modulation, iterative reconstruction, and/or weight based adjustment of the mA/kV was utilized to reduce the radiation dose to as low as reasonably achievable. COMPARISON: None. HISTORY: ORDERING SYSTEM PROVIDED HISTORY: cp TECHNOLOGIST PROVIDED HISTORY: cp Reason for Exam: Patient c/o CP with all over itchiness in her body since earlier today, no known hx of PE and no abdominal complaints Acuity: Acute Type of Exam: Initial FINDINGS: Pulmonary Arteries: Pulmonary arteries are adequately opacified for evaluation. No evidence of intraluminal filling defect to suggest pulmonary embolism. Main pulmonary artery is normal in caliber. Mediastinum: The heart is not enlarged. No pericardial effusion. No mediastinal mass. Lungs/pleura: No airspace consolidation. Multifocal dependent ground-glass opacities possibly represent atelectasis, edema, or infectious/inflammatory process. Upper Abdomen: See separate abdomen pelvis CT. Soft Tissues/Bones: No acute bone or soft tissue abnormality. IMPRESSION: Dependent ground-glass opacities possibly edema or atelectasis. Pneumonitis or less likely pneumonia are also considered. Please correlate appropriate clinical symptoms. No evidence of pulmonary embolism. [place] Dependent ground-gla ss opacities possibly edema or atelectasis. Pneumonitis or less likely pneumonia are also considered. Please correlate appropriate clinical symptoms. No evidence of pulmonary embolism. [place] HCG Qualitative, Serumon hCG Qual Negative NEGATIVE [place] Comment on above: Specimens with hCG l evels near the threshold of the test (25 mIU/mL) may give a negative or indeterminate result. In such cases, another test should be performed with a new specimen in 48-72 hours. If early is suspected clinically in this setting, correlation with quantitative serum b-hCG level is suggested. CBC Auto Differentialon 07-19 Basophils (Bld) [#/Vol] 0.00 10*3/uL [place] Basophils/100 WBC (Bld) 0 % 0 - 2 % [place] Differential Type NOT REPORTED [place] Eosinophils (Bld) [#/Vol] 0.30 10*3/uL [place] Eosinophils/100 WBC (Bld) 3 % 0 - 4 % [place] Erythrocyte distribution width (RBC) [Ratio] 16.5 % High 11.5 - 14.9 % [place] Hematocrit (Bld) [Volume fraction] 39.4 % 36 - 46 % [place] Hemoglobin (Bld) [Mass/Vol] 12.8 g/dL 12 - 16 g/dL [place] Interpretation and review of laboratory results Abnormal [place] Lymphocytes (Bld) [#/Vol] 2.90 10*3/uL [place] Lymphocytes/100 WBC (Bld) 27 % 24 - 44 % [place] MCH (RBC) [Entitic mass] 25.6 pg Low 26 - 34 pg [place] MCHC (RBC) [Mass/Vol] 32.4 g/dL 31 - 37 g/dL [place] MCV (RBC) [Entitic vol] 79.0 fL Low 80 - 100 fL [place] Monocytes (Bld) [#/Vol] 0.70 10*3/uL [place] Monocytes/100 WBC (Bld) 7 % 1 - 7 % [place] Platelet mean volume (Bld) [Entitic vol] 9.5 fL 6 - 12 fL [place] Platelets (Bld) [#/Vol] NOT REPORTED [place] Platelets (Bld) [#/Vol] 238 10*3/uL [place] RBC (Bld) [#/Vol] 4.99 10*6/uL 4 - 5.2 m/uL [place] RBC morphology finding Nom (Bld) NOT REPORTED [place] Segmented neutrophils/100 WBC (Bld) 63 % 36 - 66 % [place] Segs Absolute 6.70 [place] WBC (Bld) [#/Vol] 10.7 10*3/uL [place] WBC (Bld) [#/Vol] NOT REPORTED per 100 WBC [place] WBC Morphology NOT REPORTED [place] Comprehensive Metabolic Pane l w/ Reflex to MGon 08-08-2019 Albumin [Mass/Vol] 3.6 g/dL 3.5 - 5.2 g/dL [place] Albumin/Globulin [Mass ratio] NOT REPORTED [place] ALP [Catalytic activity/Vol] 86 U/L 35 - 104 U/L [place] ALT [Catalytic activity/Vol] 11 U/L 5 - 33 U/L [place] Anion gap [Moles/Vol] 11 mmol/L 9 - 17 mmol/L [place] AST [Catalytic activity/Vol] 11 U/L <32 [place] Bilirubin Ql (U) 0.17 mg/dL Low 0.3 - 1.2 mg/dL [place] Bun/Cre Ratio NOT REPORTED [place] Calcium [Mass/Vol] 9.1 mg/dL 8.6 - 10. 4 mg/dL [place] Chloride [Moles/Vol] 102 mmol/L 98 - 10 7 mmol/L [place] CO2 [Moles/Vol] 26 mmol/L 20 - 31 mmol/L [place] Creatinine [Mass/Vol] 0.67 mg/dL 0.5 - 0.9 mg/dL [place] GFR >60 >60 mL/min [place] GFR Non- >60 >60 mL/min [place] GFR/1.73 sq M predicted among non-blacks MDRD (S/P/Bld) [Vol rate/Area] [place] Comment on above: Average GFR for 20-2 9 years old: 116 mL/min/1.73sq m Chronic Kidney Disease: <60 mL/min/1.73sq m Kidney failure: <15 mL/min/1.73sq m eGFR calculated using average adult body mass. Additional eGFR calculator available at: http://www.[employer]multiple_crcl_2012.htm GFR/1.73 sq M predicted among non-blacks MDRD (S/P/Bld) [Vol rate/Area] NOT REPORTED [place] Glucose [Mass/Vol] 94 mg/dL 70 - 99 mg/dL [place] Interpretation and review of laboratory results Abnormal [place] Potassium [Moles/Vol] 3.9 mmol/L 3.7 - 5.3 mmol/L [place] Protein [Mass/Vol] 7.3 g/dL 6.4 - 8.3 g/dL [place] Sodium [Moles/Vol] 139 mmol/L 135 - 144 mmol/L [place] Urea nitrogen [Mass/Vol] 9 mg/dL 6 - 20 mg/dL [place] Lipaseon 08-08-2019 Lipase [Catalytic activity/Vol] 25 U/L 13 - 60 U/L [place] Microscopic Urinalysison Amorphous, UA 1+ Abnormal None [place] Bacteria, UA MODERATE Abnormal None [place] Casts UA NOT REPORTED /LPF [place] Crystals, UA NOT REPORTED None /HPF [place] Epithelial Cells UA 5 TO 10 /HPF [place] Interpretation and review of laboratory results Abnormal [place] Mucus, UA NOT REPORTED None [place] Other Observations UA NOT REPORTED NOT REQ. [place] RBC (U) [#/Vol] 20 TO 50 /HPF [facility] Ángela [place], [place] Renal Epithelial, UA NOT REPORTED 0 /HPF [place] Trichomonas, UA NOT REPORTED None [facility] [place] WBC, UA 10 TO 20 /HPF [place] Yeast, UA NOT REPORTED None [place] - [place] Otheron 08-08-2019 Immature granulocytes (Bld) [#/Vol] NOT REPORTED [place] Urinalysis Reflex to Culture on 08-08-2019 Bilirubin Urine Presumptive positive . Unable to confirm due to unavailability of reagent. Abnormal NEGATIVE [place] Color, UA DARK YELLOW Abnormal YELLOW [place] Glucose, Ur Negative NEGATIVE [place] Interpretation and review of laboratory results Abnormal [place] Ketones Ql (U) Negative NEGATIVE [place] Leukocyte esterase Test strip Ql (U) MOD Abnormal NEGATIVE [place] Nitrite, Urine Negative NEGATIVE [place] pH, UA 6.0 [place] Protein (U) [Mass/Vol] 1+ Abnormal NEGATIVE [place] Specific [place], UA 1.023 [place] Turbidity UA TURBID Abnormal CLEAR [place] Urinalysis Comments NOT REPORTED [place] Urine Hgb LARGE Abnormal NEGATIVE [place] Urobilinogen, Urine Normal Normal [place] CULTURE THROATon 04-21-2019 CULTURE THROAT Culture Observations : Unable to obtain NAKITA for organism #1 and #3. Will send to [facility]. Isolate 1 Pantoea spp Light growth of Isolate 2 Leclercia adecarboxylata Light growth of Isolate 3 Pseudomonas putida Light growth of ORGANISM 2 Leclercia adecarboxylata ANTIBIOTIC M.I.C RX STATUS Ampicillin 4 S F Ampicillin/Sulbactam <=2 S F Piperacillin/Tazobactam <=4 S F Cefazolin <=4 S F Ceftazidime <=1 S F Ceftriaxone <=1 S F Ertapenem <=0.5 S F Imipenem <=0.25 S F Amikacin <=2 S F Gentamicin <=1 S F Tobramycin <=1 S F Ciprofloxacin <=0.25 S F Levofloxacin <=0.12 S F Trimethoprim/Sulfamethoxa zole <=20 S F ORGANISM 3 Pseudomonas putida ANTIBIOTIC M.I.C RX STATUS Amikacin S F Ceftazidime S F Ceftriaxone S F Ciprofloxacin S F Gentamicin S F Imipenem S F Levofloxacin S F Piperacillin/Tazobactam S F Tobramycin S F Trimethoprim/Sulfamethoxa zole R F Aztreonam R F Cefotaxime I F Meropenem S F Tetracycline S F Ticarcillin/Clavulanic Acid R F ORGANISM 1 Pantoea spp ANTIBIOTIC M.I.C RX STATUS Amikacin S F Ampicillin/Sulbactam S F Ceftazidime S F Ceftriaxone S F Ciprofloxacin S F Gentamicin S F Imipenem S F Levofloxacin S F Piperacillin/Tazobactam I F Tobramycin S F Trimethoprim/Sulfamethoxa zole S F Aztreonam R F Cefotaxime S F Meropenem S F Tetracycline S F Ticarcillin/Clavulanic Acid S F Normal [facility] Comment on above: Performed By: #### S SCRN, THRTCX #### [facility] [address] [place] [address] Gigi Almita INFLUENZA A AND B AGon 04-13 INFLUANE SEE BELOW Normal [facility] Comment on above: Result Comment: Nega tive for Flu A protein angiten. Infection due to Flu A cannot be ruled out. Flu A angiten in the sample may be below the detection limit of the test. Performed By: #### I NFLUAB #### [facility] [address] [place] [address] Gigi Almita INFLUBNEG SEE BELOW Normal [facility] Comment on above: Result Comment: Nega tive for Flu B protein antigen. Infection due to Flu B cannot be ruled out. Flu B antigen in the sample may be below the detection limit of the test. Performed By: #### I NFLUAB #### [facility] [address] [id number] Gigi Recio INFLUENZA A AG Negative Normal NEGATIVE SEE COMMENT [facility] Comment on above: Performed By: #### I NFLUAB #### [facility] [address] [id number] Gigi Recio INFLUENZA B AG Negative Normal NEGATIVE SEE COMMENT [facility] Comment on above: Performed By: #### I NFLUAB #### [facility] [address] [id number] Gigi Recio INTERNAL CONTROLS Within Normal Limits Normal Wi thin Normal Limits [facility] Comment on above: Performed By: #### I NFLUAB #### [facility] [address] [id number] Gigi Recio STREPT SCREENon 04-13-2019 STREP SCREEN A Negative Normal NEGATIVE [facility] Comment on above: Performed By: #### S SCRN, THRTCX #### [facility] [address] [id number] Gigi Recio Acetaminophenon 08-24-2017 Acetaminophen mass conc <5 Low 10-30 [facility] Alcoholon 08-24-2017 Blood Alcohol Concentration Not indicated Normal [facility] Ethanol mg/dL Normal [facility] CBC With Platelet and Differ entialon 08-24-2017 Anisocytosis presence 2+ Normal [facility] Microcytic 2+ Normal [facility] Poikilocytosis 1+ Normal [facility] Basophils Auto #/vol (Bld) 0.0 10*3/uL Normal 0.0-0.2 [facility] Basophils/100 WBC Auto (Bld) 0.4 % Normal [facility] Eosinophils 0.1 10*3/uL Normal 0.0-0.7 [facility] Eosinophils/100 leukocytes 0.7 % Normal [facility] Erythrocyte distribution width Auto Ratio (RBC) 18.8 % Critically high 11.5-14.5 [facility] Erythrocytes (RBC) 4.99 10*6/uL Normal 4.20-5.40 [facility] Hematocrit (HCT) 37.1 % Normal 37.0-47.0 [facility] Hemoglobin mass conc (Bld) 11.5 g/dL Low 12.0-16.0 [facility] Lymphocytes 2.0 10*3/uL Normal 1.0-4.8 [facility] Lymphocytes/100 leukocytes 16.8 % Normal [facility] MCH 23.0 pg Low 27.0-31.3 [facility] MCHC mass conc (RBC) 30.9 % Low 33.0-37.0 [facility] MCV 74.4 fL Low 82.0-100.0 [facility] Monocytes 1.0 10*3/uL Critically high 0.2-0.8 [facility] Monocytes/100 leukocytes 8.4 % Normal [facility] Neutrophils 8.7 10*3/uL Critically high 1.4-6.5 [facility] Neutrophils/100 leukocytes 73.7 % Normal [facility] Platelets 232 10*3/uL Normal 130-400 [facility] WBC (Leukocytes) 11.8 10*3/uL Critically high 4.5-11.0 [facility] CKMB with Indexon 08-24-2017 CKMB ng/mL Normal 0.0-3.8 [facility] CKMB 1.5 % Normal 0.0-3.5 [facility] Creatine kinase (CK) 65 U/L Normal 0-170 [facility] Comprehensive Metabolic Pane reed 08-24-2017 Alanine aminotransferase (ALT) 14 U/L Normal 0-33 [facility] Albumin 3.8 g/dL Low 3.9-4.9 [facility] Alkaline phosphatase (ALP) 87 U/L Normal 40-130 [facility] Anion gap 10 mmol/L Normal 7-13 [facility] Aspartate aminotransferase (AST) 15 U/L Normal 0-35 [facility] Bilirubin (total) mg/dL Normal 0.0-1.2 [facility] Calcium 9.3 mg/dL Normal 8.6-10.2 [facility] Chloride 105 mmol/L Normal 98-107 [facility] CO2 26 mmol/L Normal 22-29 [facility] Creatinine 0.55 mg/dL Normal 0.50-0.90 [facility] eGFR (black) mL/min/{1.73_m2} Normal >60 [facility] Comment on above: Result Comment: >60 mL/min/1.73m2 EGFR, calc. for ages 18 and older using theMDRD formula (not corrected for weight), is valid for stablerenal function. eGFR (MDRD) mL/min/{1.73_m2} Normal >60 [facility] Comment on above: Result Comment: >60 mL/min/1.73m2 EGFR, calc. for ages 18 and older using theMDRD formula (not corrected for weight), is valid for stablerenal function. Globulin 3.8 g/dL Critically high 2.3-3.5 [facility] Glucose mass conc 112 mg/dL Critically high 74-109 [facility] Potassium molar conc 3.6 mmol/L Normal 3.5-5.1 [facility] Protein 7.6 g/dL Normal 6.4-8.1 [facility] Sodium 141 mmol/L Normal 132-144 [facility] Urea nitrogen 6 mg/dL Normal 6-20 [facility] Culture, Urineon 08-24-2017 Culture, Urine OR DERED BY: NAYANA MOSQUERA: Urine Clean Catch COLLECTED: 08/24/17 17:15ANTIBIOTICS AT ZIGGY.: RECEIVED : 08/24/17 17:42Culture, Urine FINAL 08/26/17 09:21 No growth 24 hours Normal [facility] Salicylateon 08-24-2017 Salicylate <0.3 Low 15.0-30.0 [facility] Comment on above: Result Comment: Anti -pyretic: 3.0-10.0 mg/dLAnti-inflammatory: 15.0-30.0 mg/dLToxic: >30.0 mg/dL TSH w/out Reflexon 8 Thyroid stimulating hormone (TSH) 2.360 uIU/mL Normal 0.270-4.20 [facility] UR Drugs of Abuse Panelon Drug Screen Comment see below Normal [facility] Comment on above: Result Comment: This method is a screening test to detect only these drugclasses as part of a medical workup. Confirmatory testingby another method should be ordered if clinically indicated. UR Amphetamines Screen Negative Normal Negative < [facility] UR Barbiturates Screen Negative Normal Negative < [facility] UR Benzo Screen Negative Normal Negative < [facility] UR Cannabinoids Screen Negative Normal Negative < [facility] UR Cocaine Screen Negative Normal Negative < [facility] UR Opiates Screen Negative Normal Negative < [facility] UR PCP Screen Negative Normal Negative < [facility] UR HCG Qualitativeon 018 HCG.beta subunit ( test) Ql (U) Negative Normal Detects HC [facility] Urinalysis, reflex to cultur shane 08-24-2017 Bilirubin Ql (U) Negative Normal Negative [facility] Urine Reflexed to Culture YES Normal [facility] Urine, clarity CLOUDY Abnormal Clear [facility] Urine, color Yellow Normal Straw/[place] [facility] Urine, glucose presence Negative Normal Negative [facility] Urine, hemoglobin presence LARGE Abnormal Negative [facility] Urine, ketones presence Negative Normal Negative [facility] Urine, leukocyte esterase presence SMALL Abnormal Negative [facility] Urine, nitrite presence Negative Normal Negative [facility] Urine, pH 6.5 [pH] Normal 5.0-9.0 [facility] Urine, protein presence Negative Normal Negative [facility] Urine, specific gravity 1.011 Normal 1.005-1.03 [facility] Urine, urobilinogen 1.0 {Bala'U}/dL Normal < 2.0 [facility] Urine Microscopicon 08-25-19 18 Urine Renal Epithelial 3-5 Normal [facility] Urine, bacteria in sediment Few Normal [facility] Urine, epithelial cells presence in sediment 5-10 Normal [facility] Urine, erythrocytes 5-10 Abnormal 0-2 [facility] Urine, leukocytes 6-10 Abnormal 0-5 [facility] Laboratory Studieson 017 Appearance (U) Clear [facility] Bacteria LM.HPF (Urine sed) [#/Area] None seen [facility] Beta HCG ( test) Ql (U) Negative [facility] Bilirubin Ql (U) Negative [facility] Color (U) Yellow [facility] Epithelial cells.squamous LM.HPF (Urine sed) [#/Area] 5-9 /HPF High [facility] Glucose (U) [Mass/Vol] Normal mg/dL [facility] Hyaline casts LM Ql (Urine sed) None seen /LPF [facility] Ketones Ql (U) Negative [facility] Leukocyte esterase Test strip Ql (U) 3+ High [facility] Nitrite Ql (U) Negative [facility] pH (U) 7.0 [pH] 5.0-9.0 [facility] Protein Ql (U) Negative [facility] RBC (U) [#/Vol] 1-2 /HPF [facility] Specific gravity (U) [Rel density] 1.011 1.001-1.030 [facility] Urine Occult Blood Negative [facility] Urobilinogen Qn (U) Normal mg/dL [facility] WBC (U) [#/Vol] 3-4 /HPF [facility] Laboratory Studieson 017 Albumin [Mass/Vol] 3.8 g/dL 3.2-5.5 [facility] Albumin/Globulin [Mass ratio] 1.0 {ratio} [facility] ALP [Catalytic activity/Vol] 72 U/L 32-92 [facility] ALT [Catalytic activity/Vol] 19 U/L 10-60 [facility] AST [Catalytic activity/Vol] 16 U/L 10-42 [facility] Bilirubin Ql (U) 0.7 mg/dL 0.3-1.2 [facility] Bilirubin.direct [Mass/Vol] mg/dL 0.0-0.4 [facility] Bilirubin.indirect (Body fld) [Mass/Vol] TNP [facility] Comment on above: Test not performed WHEN BILD IS <0.1,IBIL IS NOT ABLE TO BE CALCULATED. Cholesterol [Mass/Vol] 183 mg/dL 140-200 [facility] Comment on above: CHOL less than 200 m g/dL Low risk CHOL 201-239 mg/dL Borderline risk CHOL 240 mg/dL and greater High risk Cholesterol [Mass/Vol] 22 mg/dL [facility] Cholesterol in HDL [Mass/Vol] 39 mg/dL 35-85 [facility] Comment on above: HDL CHOL ATP-III CLA SSIFICATION Cardiovascular Risk HDL > or equal to 60 mg/dL Low HDL < 40 mg/dL High Cholesterol.total/Ch olesterol in HDL [Mass ratio] 4.7 {ratio} [facility] Globulin (S) [Mass/Vol] 4.0 g/dL [facility] LDL Cholesterol, Calculated 122 mg/dL High 0-100 [facility] Comment on above: LDL ATP III CLASSIFI CATION LDL less than 100 mg/dL Optimal LDL 100-129 mg/dL Near or above optimal LDL 130-159 mg/dL Borderline high LDL 160-189 mg/dL High LDL greater than 189 mg/dL Very high Protein [Mass/Vol] 7.8 g/dL 6.1-7.9 [facility] Triglyceride [Mass/Vol] 111 mg/dL 35-149 [facility] Comment on above: TRIG ATP III CLASSIF ICATION TRIG less than 150 mg/dL Normal TRIG 150-199 mg/dL Borderline high TRIG 200-500 mg/dL High TRIG greater than 500 mg/dL Very high Standard traceable to the Center for Disease Conrtrol and Prevention (CDC) test method. TSH Qn 4.93 uIU/mL 0.45-5.33 [facility] Comment on above: Revised TSH Assay This assay is standardized to the World Health Organization International Standard for human TSH. Please note Reference Intervals have changed. Amphetamines Ql (U) Negative [facility] Appearance (U) Sl cloudy Abnormal [facility] Bacteria LM.HPF (Urine sed) [#/Area] 1+ High [facility] Benzodiazepines Ql (U) Negative [facility] Beta HCG ( test) Ql (U) Negative [facility] Bilirubin Ql (U) Negative [facility] Cocaine Ql (U) Negative [facility] Color (U) Yellow [facility] Epithelial cells.squamous LM.HPF (Urine sed) [#/Area] 10-19 /hpf High [facility] Glucose (U) [Mass/Vol] Normal mg/dL [facility] Ketones Ql (U) Negative [facility] Leukocyte esterase Test strip Ql (U) Negative [facility] Mucus Ql (Urine sed) 1+ [facility] Nitrite Ql (U) Negative [facility] Opiates Ql (U) Negative [facility] pH (U) 6.0 [pH] 5.0-9.0 [facility] Phencyclidine Ql (U) Negative [facility] Protein Ql (U) 30 mg/dL High [facility] RBC (U) [#/Vol] None seen /hpf [facility] Specific gravity (U) [Rel density] 1.028 1.001-1.030 [facility] Comment on above: RECHECKED BY REFRACT OMETER Urine Barbiturates Screen Negative [facility] Urine Collection Type Type [facility] Comment on above: VOIDED Urine Drug Screen Comment See comment [facility] Comment on above: THESE ARE UNCONFIRME D RESULTS AND SHOULD NOT BE USED FOR LEGAL PURPOSES. DRUG CUT-OFF CONCENTRATION: AMPH 1000 ng/mL CHRISSY 200 ng/mL RUKHSANA 200 ng/mL COCM 300 ng/mL OP 300 ng/mL PCP 25 ng/mL THC 20 ng/mL Urine Marijuana (THC) Screen Negative [facility] Urine Occult Blood Negative [facility] Urobilinogen Qn (U) Normal mg/dL [facility] WBC (U) [#/Vol] 5-9 /hpf High [facility] Anisocytosis Ql (Bld) Slight [facility] Basophils (Bld) [#/Vol] 0.1 10*3/uL 0.0-0.2 [facility] Basophils/100 WBC (Bld) 0.8 % [facility] Blood Smear Pathologist Review Impression [facility] Comment on above: Review of the periph eral blood smear and CBC from 08/17/2016 in a 21-year-old female reveals an increased amount of red blood cells with microcytosis. Red blood cells show anisocytosis with polychromasia. Stomatocytes are also present. Neutrophils, mon Reviewed by Dr Ashely Cooper M.D. on 08/19/16. Calcium [Mass/Vol] 9.5 mg/dL 8.2-10.2 [facility] Chloride [Moles/Vol] 106 mmol/L 95-114 [facility] CO2 [Moles/Vol] 26.2 mmol/L 22.0-30.0 [facility] Creatinine [Mass/Vol] 0.70 mg/dL 0.44-1.03 [facility] Eosinophils (Bld) [#/Vol] 0.20 10*3/uL 0.0-0.45 [facility] Eosinophils/100 WBC (Bld) 1.9 % [facility] Erythrocyte distribution width (RBC) [Ratio] 15.9 % High 11.9-15.3 [facility] Estimated GFR (Non- > 60 [facility] Ethyl Alcohol Level < 5 mg/dL [facility] GFR/1.73 sq M.predicted MDRD (S/P/Bld) [Vol rate/Area] mL/min/{1.73_m2} [facility] Comment on above: GFR estimated refere nce range: According to KDOQI guidelines, <60 ml/min/1.73m2 is sufficient to diagnose a patient with chronic kidney disease. Glucose [Mass/Vol] 114 mg/dL High 70-100 [facility] Comment on above: ADA RECOMMENDED REFE RENCE RANGE Hematocrit (Bld) [Volume fraction] 38.7 % 34.0-46.4 [facility] Hemoglobin (Bld) [Mass/Vol] 12.6 g/dL 11.8-15.4 [facility] Lymphocytes (Bld) [#/Vol] 3.0 10*3/uL 1.00-4.8 [facility] Lymphocytes/100 WBC (Bld) 32.5 % [facility] MCH (RBC) [Entitic mass] 24.3 pg Low 24.7-34.3 [facility] MCHC (RBC) [Mass/Vol] 32.6 g/dL 32.0-35.0 [facility] MCV (RBC) [Entitic vol] 74.4 fL Low 80-100 [facility] Microcytosis Moderate [facility] Monocytes (Bld) [#/Vol] 0.7 10*3/uL 0.0-0.8 [facility] Monocytes/100 WBC (Bld) 7.7 % [facility] Neutrophils (Bld) [#/Vol] 5.3 10*3/uL 1.8-7.7 [facility] Neutrophils/100 WBC (Bld) 57.1 % [facility] Percent Ethyl Alcohol < 0.005 % [facility] Platelet mean volume (Bld) [Entitic vol] 9.3 fL 6.3-10.7 [facility] Platelet Morphology Comment Normal [facility] Platelets (Bld) [#/Vol] Normal [facility] Platelets (Bld) [#/Vol] 309 10*3/uL 150-450 [facility] Polychromasia Slight [facility] Potassium [Moles/Vol] 3.9 mmol/L 3.5-5.1 [facility] RBC (Bld) [#/Vol] 5.21 10*6/uL High 3.60-5.00 [facility] Sodium [Moles/Vol] 140 mmol/L 136-146 [facility] Stomatocytes Slight [facility] Urea nitrogen [Mass/Vol] 9 mg/dL 9-23 [facility] WBC (Bld) [#/Vol] 9.2 10*3/uL 3.8-11.6 [facility] Vital Signs Date Time Vital Sign Value Performing Clinician Facility 09-02-2023 09:14-0400 Blood Pressure Location [facility] 09-02-2023 09:14-0400 Body temperature 98.6 [degF] [facility] 09-02-2023 09:14-0400 Diastolic blood pressure 78 mm[Hg] [facility] 09-02-2023 09:14-0400 Heart rate 73 /min [facility] 09-02-2023 09:140400 Respiratory rate 20 /min [facility] 09-02-2023 09:14-0400 SaO2% (BldA) [Mass fraction] 98 % [facility] 09-02-2023 09:14-0400 Systolic blood pressure 118 mm[Hg[facility] 06-16-2023 13:23-0400 Body height 167.64 cm Juanita Galvandorf PA-C Work Phone: [facility] Work Phone: 06-16-2023 13:23-0400 Body mass index (BMI) [Ratio] 45.2 kg/m2 Juanita Mandydorf PA-C Work Phone: [facility] Work Phone: 06-16-2023 13:23-0400 Body surface area Derived from formula 2.3 m2 Juanita Mandydorf PA-C Work Phone: [facility] Work Phone: 06-16-2023 13:23-0400 Body temperature 98 [degF] Juanita Galvandorf PA-C Work Phone: [facility] Work Phone: 06-16-2023 13:23-0400 Body weight 127.01 kg Juanita Galvandorf PA-C Work Phone: [facility] Work Phone: 06-16-2023 13:23-0400 Diastolic blood pressure 73 mm[Hg] Juainta Galvandorf PA-C Work Phone: [facility] Work Phone: 06-16-2023 13:23-0400 Heart rate 91 /min Juanita Galvandorf PA-C Work Phone: [facility] Work Phone: 06-16-2023 13:23-0400 Heart Rate Rhythm 1 1 Juanita Galvandorf PA-C Work Phone: [facility] Work Phone: 06-16-2023 13:23-0400 Inhaled oxygen concentration 21 % Juanita Lewis PA-C Work Phone: [facility] Work Phone: 06-16-2023 13:23-0400 Inhaled oxygen flow rate 0 L/min Juanita Lewis PA-C Work Phone: [facility] Work Phone: 06-16-2023 13:23-0400 SaO2% (BldA) [Mass fraction] 98 % Juanita Lewis PA-C Work Phone: [facility] Work Phone: 06-16-2023 13:23-0400 Systolic blood pressure 107 mm[Hg] Juanita Lewis PA-C Work Phone: [facility] Work Phone: 04-30-2023 19:44-0400 Body height 165.1 cm Kirsten [place] [employer] Work Phone: [employer] 04-30-2023 19:44-0400 Body mass index (BMI) [Ratio] 47.26 kg/m2 Kirsten [place] [employer] Work Phone: [employer] 04-30-2023 19:44-0400 Body temperature 98.4 [degF] Kirsten Jamia [employer]BSCRIPTION [employer] Work Phone: [employer] 04-30-2023 19:44-0400 Body weight 128.82 kg Kirsten Jamia SUBSCRIPTION AG[employer] Work Phone: [employer] 04-30-2023 19:44-0400 Diastolic blood pressure 61 mm[Hg] Kirsten Jamia SUBSCRIPTION [employer] Work Phone: [employer] 04-30-2023 19:44-0400 Heart rate 92 /min Kirsten Jamia SUBSCRIPTION AGENT[employer] Work Phone: [employer] 04-30-2023 19:44-0400 Respiratory rate 14 /min Kirsten Blandon SUBSCRIPTION AGENT[employer] Work Phone: [employer] 04-30-2023 19:44-0400 SaO2% (BldA) [Mass fraction] 100 % Kirsten Blandon SUBSCRIPTION AGENT[employer] [facility] 04-30-2023 19:44-0400 Systolic blood pressure 126 mm[Hg] Kirsten Blandon SUBSCRIPTION AGENT[employer] [facility] 04-23-2023 10:53-0500 Body height 167.64 cm Juanita Lewis PA-C Work Phone: [facility] Work Phone: 04-23-2023 10:53-0500 Body mass index (BMI) [Ratio] 45.3 kg/m2 Juanita Lewis PA-C Work Phone: [facility] Work Phone: 04-23-2023 10:53-0500 Body surface area Derived from formula 2.3 m2 Juanita Galvandorf PA-C Work Phone: [facility] Work Phone: 04-23-2023 10:53-0500 Body temperature 97.5 [degF] Juanita Galvandorf PA-C Work Phone: [facility] Work Phone: 04-23-2023 10:53-0500 Body weight 127.19 kg Juanita Galvandorf PA-C Work Phone: [facility] Work Phone: 04-23-2023 10:53-0500 Diastolic blood pressure 61 mm[Hg] Juanita Galvandorf PA-C Work Phone: [facility] Work Phone: 04-23-2023 10:53-0500 Heart Rate Rhythm 1 1 Juanita Lewis PA-C Work Phone: [facility] Work Phone: 04-23-2023 10:53-0500 Inhaled oxygen concentration 21 % Juanita Lewis PA-C Work Phone: [facility] Work Phone: 04-23-2023 10:53-0500 Inhaled oxygen flow rate 0 L/min Juanita Lewis PA-C Work Phone: [facility] Work Phone: 04-23-2023 10:53-0500 Systolic blood pressure 102 mm[Hg] Juanita Lewis PA-C Work Phone: [facility] Work Phone: 04-09-2023 09:08-0500 Body height 167.64 cm Juanita Lewis PA-C Work Phone: [facility] Work Phone: 04-09-2023 09:08-0500 Body mass index (BMI) [Ratio] 46 kg/m2 Juanita Lewis PA-C Work Phone: [facility] Work Phone: 04-09-2023 09:08-0500 Body surface area Derived from formula 2.3 m2 Juanita Lewis PA-C Work Phone: [facility] Work Phone: 04-09-2023 09:08-0500 Body temperature 97.1 [degF] Juanita Lewis PA-C Work Phone: [facility] Work Phone: 04-09-2023 09:08-0500 Body weight 129.37 kg Juanita [employer] PA-C Work Phone: [facility] Work Phone: 04-09-2023 09:08-0500 Diastolic blood pressure 87 mm[Hg] Juanita Lewis PA-C Work Phone: [facility] Work Phone: 04-09-2023 09:08-0500 Heart rate 93 /min Juanita [employer] PA-C Work Phone: [facility] Work Phone: 04-09-2023 09:08-0500 SaO2% (BldA) [Mass fraction] 98 % Juanita Lewis PA-C Work Phone: [facility] Work Phone: 04-09-2023 09:08-0500 Systolic blood pressure 126 mm[Hg] Juanita [employer] PA-C Work Phone: [facility] Work Phone: 02-26-2023 12:46-0500 Body mass index (BMI) [Ratio] 46 kg/m2 Rosalie Cox SUBSCRIPTION AGENT[employer] Work Phone: [employer] 02-26-2023 12:46-0500 Body temperature 98.49 [degF] Rosalie Cox SUBSCRIPTION AGENT[employer] Work Phone: [employer] 02-26-2023 12:46-0500 Body weight 129.28 kg Rosalie Cox APRN-TANK COOPER Work Phone: [employer] 02-26-2023 12:46-0500 Diastolic blood pressure 87 mm[Hg] Rosalie Cox SUBSCRIPTION AGENT[employer] Work Phone: [employer] 02-26-2023 12:46-0500 Heart rate 75 /min Rosalie Smola SUBSCRIPTION AGENT[employer] Work Phone: [employer] 02-26-2023 12:46-0500 Respiratory rate 18 /min Rosalie Cox SUBSCRIPTION AGENT[employer] [facility] 02-26-2023 12:46-0500 SaO2% (BldA) [Mass fraction] 100 % Rosalie Cox APRN-[employer] COOPER [facility] 02-26-2023 12:46-0500 Systolic blood pressure 135 mm[Hg] Rosalie Cox SUBSCRIPTION AGENT[employer] [facility] 01-24-2023 09:30-0500 Body height 167.64 cm Carrol Culp DDS Work Phone: [facility] Work Phone: 01-24-2023 09:30-0500 Body mass index (BMI) [Ratio] 46.3 kg/m2 Carrol Culp DDS Work Phone: [facility] Work Phone: 01-24-2023 09:30-0500 Body surface area Derived from formula 2.3 m2 Carrol Culp DDS Work Phone: [facility] Work Phone: 01-24-2023 09:30-0500 Body temperature 97.1 [degF] Carrol Culp DDS Work Phone: [facility] Work Phone: 01-24-2023 09:30-0500 Body weight 130.18 kg Carrol Culp DDS Work Phone: [facility] Work Phone: 01-24-2023 09:30-0500 Diastolic blood pressure 91 mm[Hg] Carrol Culp [employer] Work Phone: [facility] Work Phone: 01-24-2023 09:30-0500 Heart rate 84 /min Carrol Culp DDS Work Phone: [facility] Work Phone: 01-24-2023 09:30-0500 Heart Rate Rhythm 1 1 Carrol Culp DDS Work Phone: [facility] Work Phone: 01-24-2023 09:30-0500 Inhaled oxygen concentration 21 % Carrol Culp DDS Work Phone: [facility] Work Phone: 01-24-2023 09:30-0500 Inhaled oxygen flow rate 0 L/min Carrol Culp DDS Work Phone: [facility] Work Phone: 01-24-2023 09:30-0500 SaO2% (BldA) [Mass fraction] 99 % Carrol Culp DDS Work Phone: [facility] Work Phone: 01-24-2023 09:30-0500 Systolic blood pressure 126 mm[Hg] Carrol Culp DDS Work Phone: [facility] Work Phone: 11-29-2022 09:06-0400 Body height 167.64 cm Carrol Culp DDS Work Phone: [facility] Work Phone: 11-29-2022 09:06-0400 Body mass index (BMI) [Ratio] 46 kg/m2 Carrol Culp DDS Work Phone: [facility] Work Phone: 11-29-2022 09:06-0400 Body surface area Derived from formula 2.3 m2 Carrol Culp DDS Work Phone: [facility] Work Phone: 11-29-2022 09:06-0400 Body temperature 97.4 [degF] Carrol Culp DDS Work Phone: [facility] Work Phone: 11-29-2022 09:06-0400 Body weight 129.37 kg Carrol Culp [employer] Work Phone: [facility] Work Phone: 11-29-2022 09:06-0400 Diastolic blood pressure 66 mm[Hg] Carrol Culp [employer] Work Phone: [facility] Work Phone: 11-29-2022 09:06-0400 Heart rate 77 /min Carrol Culp [employer] Work Phone: [facility] Work Phone: 11-29-2022 09:06-0400 SaO2% (BldA) [Mass fraction] 99 % Carrol Culp [employer] Work Phone: [facility] Work Phone: 11-29-2022 09:06-0400 Systolic blood pressure 130 mm[Hg] Carrol Culp [employer] Work Phone: [facility] Work Phone: 11-05-2022 09:55-0400 Body height 167.64 cm Juanita [employer] Work Phone: [facility] Work Phone: 11-05-2022 09:55-0400 Body mass index (BMI) [Ratio] 46.5 kg/m2 Juanita MORALES[employer] Work Phone: [facility] Work Phone: 11-05-2022 09:55-0400 Body surface area Derived from formula 2.3 m2 Juanita Lewis PA-C Work Phone: [facility] Work Phone: 11-05-2022 09:55-0400 Body temperature 96.9 [degF] Juanita Lewis PA-C Work Phone: [facility] Work Phone: 11-05-2022 09:55-0400 Body weight 130.55 kg Juanita Lewis PA-C Work Phone: [facility] Work Phone: 11-05-2022 09:55-0400 Diastolic blood pressure 62 mm[Hg] Juanita Lewis PA-C Work Phone: [facility] Work Phone: 11-05-2022 09:55-0400 Heart rate 85 /min Juanita Lewis PA-C Work Phone: [facility] Work Phone: 11-05-2022 09:55-0400 SaO2% (BldA) [Mass fraction] 95 % Juanita Lewis PA-C Work Phone: [facility] Work Phone: 11-05-2022 09:55-0400 Systolic blood pressure 118 mm[Hg] Juanita [employer] PA-C Work Phone: [facility] Work Phone: 10-30-2022 23:07-0400 Body height 167.6 cm Georgiana Larsen MD Work Phone: [facility] 10-30-2022 23:07-0400 Body mass index (BMI) [Ratio] 47.45 kg/m2 Georgiana Larsen MD Work Phone: [employer] 10-30-2022 23:07-0400 Body temperature 98.2 [degF] Georgiana Larsen MD Work Phone: [facility] [employer] 10-30-2022 23:07-0400 Body weight 133.36 kg Georgiana Larsen MD Work Phone: [facility] [employer] 10-30-2022 23:07-0400 Diastolic blood pressure 90 mm[Hg] Georgiana Larsen MD Work Phone: [facility] [employer] 10-30-2022 23:07-0400 Heart rate 76 /min Georgiana Larsen MD Work Phone: [facility] [employer] 10-30-2022 23:07-0400 Respiratory rate 16 /min Georgiana Larsen MD Work Phone: [facility] [employer] 10-30-2022 23:07-0400 SaO2% (BldA) [Mass fraction] 100 % Georgiana Larsen MD Work Phone: [facility] [employer] 10-30-2022 23:07-0400 Systolic blood pressure 127 mm[Hg] Georgiana Larsen MD Work Phone: [facility] [employer] 10-17-2022 08:56-0400 Body height 167.64 cm Juanita [employer] Work Phone: [facility] Work Phone: 10-17-2022 08:56-0400 Body mass index (BMI) [Ratio] 47.2 kg/m2 Juanita [employer] Work Phone: [facility] Work Phone: 10-17-2022 08:56-0400 Body surface area Derived from formula 2.4 m2 Juanita Hattendorf PA-C Work Phone: [facility] Work Phone: 10-17-2022 08:56-0400 Body temperature 98.3 [degF] Juanita Galvandorf PA-C Work Phone: [facility] Work Phone: 10-17-2022 08:56-0400 Body weight 132.63 kg Juanita Mandydorf PA-C Work Phone: [facility] Work Phone: 10-17-2022 08:56-0400 Diastolic blood pressure 60 mm[Hg] Juanita Barbaratendorf PA-C Work Phone: [facility] Work Phone: 10-17-2022 08:56-0400 Heart rate 88 /min Juanita Mandydorf PA-C Work Phone: [facility] Work Phone: 10-17-2022 08:56-0400 Heart Rate Rhythm 1 1 Juanita Mandydorf PA-C Work Phone: [facility] Work Phone: 10-17-2022 08:56-0400 Inhaled oxygen concentration 21 % Juanita Mandydorf PA-C Work Phone: [facility] Work Phone: 10-17-2022 08:56-0400 Inhaled oxygen flow rate 0 L/min Juanita Barbaratendorf PA-C Work Phone: [facility] Work Phone: 10-17-2022 08:56-0400 Respiratory rate 22 /min Juanita Barbaratendorf PA-C Work Phone: [facility] Work Phone: 08-31-2023 08:56-0400 SaO2% (BldA) [Mass fraction] 98 % Juanita Lewis PA-C Work Phone: [facility] Work Phone: 10-17-2022 08:56-0400 Systolic blood pressure 106 mm[Hg] Juanita Lewis PA-C Work Phone: [facility] Work Phone: 10-09-2022 10:03-0400 Body height 167.64 cm Juanita Lewis PA-C Work Phone: [facility] Work Phone: 10-09-2022 10:03-0400 Body mass index (BMI) [Ratio] 47.5 kg/m2 Juanita Lewis PA-C Work Phone: [facility] Work Phone: 10-09-2022 10:03-0400 Body surface area Derived from formula 2.4 m2 Juanita Lewis PA-C Work Phone: [facility] Work Phone: 10-09-2022 10:03-0400 Body temperature 98.4 [degF] Juanita Lewis PA-C Work Phone: [facility] Work Phone: 10-09-2022 10:03-0400 Body weight 133.36 kg Juanita Galvandorf PA-C Work Phone: [facility] Work Phone: 10-09-2022 10:03-0400 Diastolic blood pressure 72 mm[Hg] Juanita Guanrf PA-C Work Phone: [facility] Work Phone: 10-09-2022 10:03-0400 Heart rate 81 /min Juanita Galvandorf PA-C Work Phone: [facility] Work Phone: 10-09-2022 10:03-0400 SaO2% (BldA) [Mass fraction] 98 % Juanita Lewis PA-C Work Phone: [facility] Work Phone: 10-09-2022 10:03-0400 Systolic blood pressure 122 mm[Hg] Juanita Lewis PA-C Work Phone: [facility] Work Phone: 09-18-2022 09:57-0400 Body height 167.64 cm Juanita Lewis PA-C Work Phone: [facility] Work Phone: 09-18-2022 09:57-0400 Body mass index (BMI) [Ratio] 47.5 kg/m2 Juanita Lewis PA-C Work Phone: [facility] Work Phone: 09-18-2022 09:57-0400 Body surface area Derived from formula 2.4 m2 Juanita Lewis PA-C Work Phone: [facility] Work Phone: 09-18-2022 09:57-0400 Body temperature 97.6 [degF] Juanita Lewis PA-C Work Phone: [facility] Work Phone: 09-18-2022 09:57-0400 Body weight 133.36 kg Juanita Lewis PA-C Work Phone: [facility] Work Phone: 09-18-2022 09:57-0400 Diastolic blood pressure 66 mm[Hg] Juanita Lewis PA-C Work Phone: [facility] Work Phone: 09-18-2022 09:57-0400 Heart rate 77 /min Juanita Lewis PA-C Work Phone: [facility] Work Phone: 09-18-2022 09:57-0400 SaO2% (BldA) [Mass fraction] 98 % Juanita Lewis PA-C Work Phone: [facility] Work Phone: 09-18-2022 09:57-0400 Systolic blood pressure 124 mm[Hg] Juanita Lewis PA-C Work Phone: [facility] Work Phone: 05-27-2022 14:51-0400 Body height 167.64 cm Juanita Lewis PA-C Work Phone: [facility] Work Phone: 05-27-2022 14:51-0400 Body mass index (BMI) [Ratio] 47.5 kg/m2 Juanita Lewis PA-C Work Phone: [facility] Work Phone: 05-27-2022 14:51-0400 Body surface area Derived from formula 2.4 m2 Juanita Lewis PA-C Work Phone: [facility] Work Phone: 05-27-2022 14:51-0400 Body temperature 98.4 [degF] Juanita Lewis PA-C Work Phone: [facility] Work Phone: 05-27-2022 14:51-0400 Body weight 133.63 kg Juanita Lewis PA-C Work Phone: [facility] Work Phone: 05-27-2022 14:51-0400 Diastolic blood pressure 70 mm[Hg] Juanita Lewis PA-C Work Phone: [facility] Work Phone: 05-27-2022 14:51-0400 Heart rate 82 /min Juanita Lewis PA-C Work Phone: [facility] Work Phone: 05-27-2022 14:51-0400 SaO2% (BldA) [Mass fraction] 99 % Juanita Lewis PA-C Work Phone: [facility] Work Phone: 05-27-2022 14:51-0400 Systolic blood pressure 124 mm[Hg] Juanita Lewis PA-C Work Phone: [facility] Work Phone: 05-17-2022 14:06-0400 Body height 167.64 cm Kb Pelaez CNP Work Phone: [facility] Work Phone: 05-17-2022 14:06-0400 Body mass index (BMI) [Ratio] 47.2 kg/m2 Kb Pelaez CNP Work Phone: [facility] Work Phone: 05-17-2022 14:06-0400 Body surface area Derived from formula 2.4 m2 Kb Pelaez CNP Work Phone: [facility] Work Phone: 05-17-2022 14:06-0400 Body temperature 98.1 [degF] Kb Pelaez CNP Work Phone: [facility] Work Phone: 05-17-2022 14:06-0400 Body weight 132.63 kg Kb Ray TANK COOPER Work Phone: [facility] Work Phone: 05-17-2022 14:06-0400 Diastolic blood pressure 68 mm[Hg] Kb Pelaez CNP Work Phone: [facility] Work Phone: 05-17-2022 14:06-0400 Heart rate 102 /min Kb Pelaez CNP Work Phone: [facility] Work Phone: 05-17-2022 14:06-0400 SaO2% (BldA) [Mass fraction] 99 % Kb Pelaez CNP Work Phone: [facility] Work Phone: 05-17-2022 14:06-0400 Systolic blood pressure 116 mm[Hg] Kb Pelaez CNP Work Phone: [facility] Work Phone: 04-29-2022 10:47-0400 Body height 167.64 cm Kb Pelaez CNP Work Phone: [facility] Work Phone: 04-29-2022 10:47-0400 Body mass index (BMI) [Ratio] 46.5 kg/m2 Kb Pelaez CNP Work Phone: [facility] Work Phone: 04-29-2022 10:47-0400 Body surface area Derived from formula 2.3 m2 Kb Pelaez CNP Work Phone: [facility] Work Phone: 04-29-2022 10:47-0400 Body temperature 97.9 [degF] Kb Pelaez CNP Work Phone: [facility] Work Phone: 04-29-2022 10:47-0400 Body weight 130.73 kg Kb Pelaez CNP Work Phone: [facility] Work Phone: 04-29-2022 10:47-0400 Diastolic blood pressure 70 mm[Hg] Kb Pelaez CNP Work Phone: [facility] Work Phone: 04-29-2022 10:47-0400 Heart rate 91 /min Kb Pelaez CNP Work Phone: [facility] Work Phone: 04-29-2022 10:47-0400 SaO2% (BldA) [Mass fraction] 98 % Kb Pelaez CNP Work Phone: [facility] Work Phone: 04-29-2022 10:47-0400 Systolic blood pressure 122 mm[Hg] Kb Pelaez CNP Work Phone: [facility] Work Phone: 12-23-2021 23:44-0500 Body height 167.6 cm Alexandra Roa MD Work Phone: [facility] 12-23-2021 23:44-0500 Body mass index (BMI)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 Dx); Right lower quadrant abdominal pain Start: 09-08-2020 End: 09-08-2020 Emergency department patient visit César Alcocernayeli FIGUEROA Work Phone: [facility] ED Comment on above: Left flank pain (Rachele pedro Dx); Acute cystitis with hematuria Start: 09-02-2020 End: 09-02-2020 Emergency department patient visit Georgiana Larsen MD Work Phone: [facility] ED Comment on above: Upper respiratory tr act infection, unspecified type (Primary Dx) Start: 09-01-2020 End: 09-01-2020 Emergency department patient visit Flakito Castro MD Work Phone: [facility] ED Comment on above: Cough (Primary Dx) Start: 08-27-2020 End: 08-28-2020 Emergency department patient visit Kelly Serrano MD Work Phone: [facility] Comment on above: Acute left ankle janet n (Primary Dx) Start: 08-24-2020 End: 08-25-2020 Emergency department patient visit Elton Finley MD Work Phone: [facility] ED Comment on above: Acute pain of left w rist (Primary Dx) Start: 05-18-2020 End: 05-18-2020 Emergency department patient visit Chuck Collins Work Phone: [facility] Comment on above: Non-intractable vomi ting with nausea, unspecified vomiting type (Primary Dx); Diarrhea, unspecified type Start: 04-23-2020 End: 04-23-2020 Emergency department patient visit Alexandra Roa Work Phone: [facility] Comment on above: Right lower quadrant abdominal pain (Primary Dx); Trichomoniasis; Acute cystitis without hematuria Start: 12-17-2019 End: 12-17-2019 Emergency department patient visit Dread Duyen Nicanor Work Phone: [facility] ED Comment on above: Chest wall pain (Rachele pedro Dx) Start: 12-01-2019 End: 12-01-2019 Emergency department patient visit Kirsten Lee Work Phone: [facility] ED Comment on above: Cough (Primary Dx); Acute upper respiratory infection Start: 11-28-2019 End: 11-29-2019 Emergency department patient visit Narda Hendricks Work Phone: [facility] ED Comment on above: Viral URI with cough (Primary Dx) Start: 09-10-2019 End: 09-10-2019 Emergency department patient visit [facility] Start: 08-08-2019 End: 08-09-2019 Emergency department patient visit Austin Jovel Work Phone: [facility] ED Comment on above: Chest pain, unspecif ied type (Primary Dx); Pneumonia due to organism Start: 08-03-2019 End: 08-03-2019 Emergency department patient visit Son Lucero Allegra Work Phone: [facility] ED Comment on above: Chronic left shoulde r pain (Primary Dx) Start: 04-13-2019 End: 04-13-2019 Patient encounter procedure ADRIANNA GOMEZ Facility: Start: 09-12-2018 End: 09-12-2018 Emergency department patient visit CHAR [facility] Start: 08-24-2017 End: 08-30-2017 Evaluation and management of inpatient MAYRA Simmons [facility] Start: 11-17-2016 End: 11-17-2016 Emergency department patient visit [facility] Start: 11-12-2016 End: 11-12-2016 Admission to day surgery [facility] Start: 10-18-2016 End: 10-18-2016 Patient encounter procedure [facility] Start: 08-18-2016 End: 08-20-2016 Evaluation and management of inpatient [facility] Start: 08-11-2016 End: 08-11-2016 Emergency department patient visit [facility] Start: 08-06-2016 End: 08-06-2016 Patient encounter procedure [facility] Start: 07-30-2016 End: 07-30-2016 Emergency department patient visit Adrianna [facility] Procedures Date Procedure Procedure Detail Performing Clinician Start: 06-16-2023 Current tobacco non- user cad cap copd pv dm Jelani Harris [employer] Work Phone: Start: 06-16-2023 Most recent diastoli c blood pressure < 80 mm hg Velia Penix [employer] Work Phone: Start: 06-16-2023 Most recent systolic blood pressure <130 mm hg Jelani Keithix [employer] Work Phone: Start: 06-16-2023 Pt scrnd tobacco use rcvd tobacco cessation talk Velia Penix [employer] Work Phone: Start: 04-23-2023 Current tobacco non- user cad cap copd pv dm [facility] Work Phone: Start: 04-23-2023 Most recent diastoli c blood pressure < 80 mm hg [facility] Work [facility]: Start: 04-23-2023 Most recent systolic blood pressure <130 mm hg Juanita Barbaratendorf PA-C Work Phone: Start: 04-23-2023 Psychotherapy w/shira ent 30 minutes Odalys SMITH Work Phone: Start: 04-23-2023 Pt scrnd tobacco use rcvd tobacco cessation talk [facility] Work Phone: Start: 04-09-2023 Current tobacco non- user cad cap copd pv dm [facility] Work Phone: Start: 04-09-2023 Etonogestrel implant system [facility] PA-C Work Phone: Start: 04-09-2023 Insj non-biodegradab le drug delivery implant [facility]-C Work Phone: Start: 04-09-2023 Most recent diastoli c blood pressure 80-89 mm hg Juanita Hattendorf PA-C Work Phone: Start: 04-09-2023 Most recent systolic blood pressure <130 mm hg Juanita Hattendorf PA-C Work Phone: Start: 04-09-2023 Psychotherapy w/shira ent 30 minutes Kristin MÁRQUEZW-S Work Phone: Start: 04-09-2023 Pt scrnd tobacco use rcvd tobacco cessation talk Juanita Lewis PA-C Work Phone: Start: 01-24-2023 Asthma Control Test/Baseline Evaluation Juanita Lewis PA-C Work Phone: Start: 01-24-2023 Asthma discharge raisa n present Juanita Lewis PA-C Work Phone: Start: 01-24-2023 Most recent diastol blood pres >/equal 90 mm hg Juanita Lewis PA-C Work Phone: Start: 01-24-2023 Most recent systolic blood pressure <130 mm hg Juanita Lewis PA-C Work Phone: Start: 01-24-2023 Psychotherapy w/shira ent 30 minutes Kristin Moran [employer] Work Phone: Start: 01-24-2023 Pt scrnd tobacco use rcvd tobacco cessation talk Juanita Lewis PA-C Work Phone: Start: 11-29-2022 History and physical examination, pre-employment Routine Pre-employment Screening Examination Juanita Lewis [employer] Work Phone: Start: 11-29-2022 Most recent diastoli c blood pressure < 80 mm hg Juanita Lewis PA-C Work Phone: Start: 11-29-2022 Most recent systolic blood press 130-139mm hg Juanita Lewis PA-C Work Phone: Start: 11-29-2022 Pt scrnd tobacco use rcvd tobacco cessation talk Juanita Lewis PA-C Work Phone: Start: 11-29-2022 Therapeutic prophylactic/dx injection subq/im Juanita Lewis PA-C Work Phone: Start: 11-29-2022 Tuberculosis screening Visit F or: Screening Exam Pulmonary Tuberculosis Juanita Lewis PA-C Work Phone: Start: 11-05-2022 COVID-19 Antigen testing [facility] PA-C Work Phone: Start: 11-05-2022 Iaadiadoo influenza [facility] Work Phone: Start: 11-05-2022 Most recent diastoli c blood pressure < 80 mm hg [facility]-C Work Phone: Start: 11-05-2022 Most recent systolic blood pressure <130 mm hg [facility]-C Work Phone: Start: 11-05-2022 Pt scrnd tobacco use rcvd tobacco cessation talk [facility] PA-C Work Phone: Start: 10-31-2022 Urine test visual color cmprsn meths Georgiana Larsen MD Work Phone: Start: 10-17-2022 Assay of ferritin [facility]ann y [facility] Work Phone: Start: 10-17-2022 Collection venous bl ood venipuncture Kb Pelaez CNP Work Phone: Start: 10-17-2022 COVID-19 Antigen testing Kb Pelaez CNP Work Phone: Start: 10-17-2022 Iaadiadoo influenza Chr shara Pelaez CNP Work Phone: Start: 10-17-2022 Most recent diastoli c blood pressure < 80 mm hg Kb Pelaez CNP Work Phone: Start: 10-17-2022 Most recent systolic blood pressure <130 mm hg Kb Pelaez CNP Work Phone: Start: 10-17-2022 Pt scrnd tobacco use rcvd tobacco cessation talk Kb Pelaez CNP Work Phone: Start: 10-17-2022 Urine test visual color cmprsn meths Kb Pelaez CNP Work Phone: Start: 10-09-2022 Most recent diastoli c blood pressure < 80 mm hg [facility] PA-C Work Phone: Start: 10-09-2022 Most recent systolic blood pressure <130 mm hg [facility] PA-C Work Phone: Start: 10-09-2022 Pt scrnd tobacco use rcvd tobacco cessation talk [facility] PA-C Work Phone: Start: 09-18-2022 Hemoglobin glycosyla arianna a1c [facility] PA-C Work Phone: Start: 09-18-2022 Most recent diastoli c blood pressure < 80 mm hg [facility] PA-C Work Phone: Start: 09-18-2022 Most recent hemoglob in a1c level < 7.0% [facility] PA-C Work Phone: Start: 09-18-2022 Most recent systolic blood pressure <130 mm hg [facility] PA-C Work Phone: Start: 09-18-2022 Pt scrnd tobacco use rcvd tobacco cessation talk [facility] PA-C Work Phone: Start: 08-15-2022 Microscopic observat ion [Identifier] in Cervix by Cyto stain [facility] Work Phone: Start: 06-28-2022 Gonadotropin chorion ic quantitative Jessica Agustin SUBSCRIPTION AGENT - [employer] Work Phone: Start: 05-27-2022 Most recent diastoli c blood pressure < 80 mm hg [facility] PA-C Work Phone: Start: 05-27-2022 Most recent systolic blood pressure <130 mm hg [facility] PA-C Work Phone: Start: 05-27-2022 Pt scrnd tobacco use rcvd tobacco cessation talk [facility] PA-C Work Phone: Start: 05-17-2022 Most recent diastoli c blood pressure < 80 mm hg [facility] Work Phone: Start: 05-17-2022 Most recent systolic blood pressure <130 mm hg [facility] Work Phone: Start: 05-17-2022 Pt scrnd tobacco use rcvd tobacco cessation talk [facility] Work Phone: Start: 04-29-2022 Extraction of wisdom tooth Kb Pelaez [employer] Work Phone: Start: 04-29-2022 Hemoglobin glycosyla arianna a1c [facility] Work Phone: Start: 04-29-2022 Hepatitis c antibody [facility] Work Phone: Start: 04-29-2022 Most recent diastoli c blood pressure < 80 mm hg [facility] Work Phone: Start: 04-29-2022 Most recent hemoglob in a1c level < 7.0% [facility] Work Phone: Start: 04-29-2022 Most recent systolic blood pressure <130 mm hg [facility] Work Phone: Start: 04-29-2022 Pt scrnd tobacco use rcvd tobacco cessation talk Odalys SMITH Work Phone: Start: 04-29-2022 Pt-focused hlth risk assmt score doc stnd instrm [facility] Work Phone: Start: 08-15-2021 Adult depression scr eening assessment Rosalie Cox SUBSCRIPTION AGENT-[employer] Work Phone: Start: 06-29-2021 Mri any jt lower ext rem w/o contrast matrl Jennifer Bean DO Work Phone: Start: 06-19-2021 Urinalysis microscop ic only Khang Wu DO Work Phone: Start: 06-19-2021 Urine test visual color cmprsn meths Khang Lacythomasmik DO Work Phone: Start: 05-10-2021 Comprehensive metabo lic panel Johana Ayala MD Work Phone: Start: 05-10-2021 Lipid panel Johana fine MD Work Phone: Start: 04-25-2021 Gonadotropin chorion ic quantitative Odalys Moore SUBSCRIPTION AGENT - BUYER Work Phone: Start: 04-13-2021 Microscopic observat ion [Identifier] in Cervix by Cyto stain Johana Ayala MD Work Phone: Start: 03-20-2021 Radex clavicle complete Khang Chakraborty Yosefdixon DO Work Phone: Start: 03-20-2021 Radiologic exam ches t single view Khang Chakraborty Jazmin DO Work Phone: Start: 01-09-2021 Urine test visual color cmprsn meths Giorgi Ramos MD Work Phone: Start: 11-03-2020 Radex hip unilateral with pelvis 2-3 views Alyse Roger MD Work Phone: Start: 10-11-2020 Ct abdomen & pelvis w/contrast material Hemalatha Conde DO Work Phone: Start: 10-11-2020 Urnls dip stick/tabl et reagent auto microscopy Hemalatha Conde DO Work Phone: Start: 10-11-2020 Assay of lipase Hemalatha Conde DO Work Phone: Start: 10-11-2020 BASIC METABOLIC PANE L W/ REFLEX TO MG FOR LOW K Hemalatha Conde DO Work Phone: Start: 10-11-2020 Hepatic function panel Hemalatha Conde DO Work Phone: Start: 09-08-2020 Ct abdomen & pelvis w/o contrast material E Brnat Roger MD Work Phone: Start: 09-08-2020 End: 09-08-2020 Comprehensive metabolic panel César Rodriguez DO Work Phone: Start: 09-08-2020 Radiologic exam ches t 2 views E Brant Roger MD Work Phone: Start: 09-08-2020 SPECIMEN REJECTION E Sweetie Roger MD Work Phone: Start: 09-08-2020 Urine test visual color cmprsn meths E Brant Roger MD Work Phone: Start: 09-08-2020 Urnls dip stick/tabl et reagent auto microscopy E Brant Roger MD Work Phone: Start: 09-02-2020 Comprehensive metabo lic panel Georgiana Larsen MD Work Phone: Start: 09-02-2020 COVID-19, RAPID Georgiana Larsen MD Work Phone: Start: 09-01-2020 Radiologic exam ches t single view Flakito Castro MD Work Phone: Start: 09-01-2020 Gonadotropin chorion ic qualitative Flakito Castro MD Work Phone: Start: 08-28-2020 Radex ankle complete minimum 3 views Alix Mercedes MD Work Phone: Start: 08-28-2020 Urine test visual color cmprsn meths Alix Mercedes MD Work Phone: Start: 08-25-2020 Radex wrist complete minimum 3 views Magdy Mireles DO Work Phone: Start: 04-23-2020 Dup-scan artl vidal abdl/pel/scrot&/rpr orgn lmt Bronson Rivera Work Phone: Start: 04-23-2020 Us transvaginal Raymundo Rivera Work Phone: Start: 04-23-2020 Iadna manuela specie s direct probe tq Bronson Rivera Work Phone: Start: 04-23-2020 Urnls dip stick/tabl et reagent auto microscopy Bronson Cano [employer] Work Phone: Start: 04-23-2020 Ct abdomen & pelvis w/contrast material Bronson Rivera Work Phone: Start: 04-23-2020 Assay of lipase Raymundo pher [employer] Work Phone: Start: 04-23-2020 Assay of magnesium Chri stopher [employer] Work Phone: Start: 04-23-2020 BASIC METABOLIC PANE L W/ REFLEX TO MG FOR LOW K Bronson Cano [employer] Work Phone: Start: 04-23-2020 Blood count complete auto&auto difrntl wbc Bronson Rivera Work Phone: Start: 04-23-2020 Gonadotropin chorion ic qualitative Bronson Rivera Work Phone: Start: 04-23-2020 Hepatic function panel Bronson Cano [employer] Work Phone: Start: 12-17-2019 Radiologic exam ches t 2 views Era Dong Work Phone: Start: 12-01-2019 Radiologic exam ches t single view Kirsten Lee Work Phone: Start: 11-29-2019 Assay of troponin quantitative Zach Granados Work Phone: Start: 11-28-2019 Fibrin dgradj produc ts d-dimer quantitative Zach Granados Work Phone: Start: 11-28-2019 Blood count complete auto&auto difrntl wbc Narda Hendricks Work Phone: Start: 11-28-2019 Radiologic exam ches t single view Zach Granados Work Phone: Start: 11-28-2019 Assay of troponin quantitative Zach Dixon Granados Work Phone: Start: 11-28-2019 Basic metabolic pane l calcium total Zach M Roberta Work Phone: Start: 11-28-2019 Gonadotropin chorion ic qualitative Zach Dixon Granados Work Phone: Start: 11-28-2019 SPECIMEN REJECTION Coli n Dixon Granados Work Phone: Start: 09-10-2019 Iaadiadoo streptococ cus group a CHAR SARAVIA Start: 08-09-2019 Ct thorax w/contrast material Austin Jovel Work Phone: Start: 08-08-2019 Assay of lipase Austin Jovel Work Phone: Start: 08-08-2019 Blood count complete auto&auto difrntl wbc Austin Jovel Work Phone: Start: 08-08-2019 Gonadotropin chorion ic qualitative Austin Jovel Work Phone: Start: 08-08-2019 Urinalysis microscop ic only Austin Jovel Work Phone: Start: 08-08-2019 Urnls dip stick/tabl et rgnt auto w/o microscopy Austin Jovel Work Phone: Start: 08-08-2019 Ecg routine ecg w/le ast 12 lds w/i&r Austin Jovel Work Phone: Start: 09-12-2018 Ecg routine ecg w/le ast 12 lds w/i&r CHRA SARAVIA Start: 08-30-2017 DISCHARGE PATIENT MAYRA KERNVICENTE Start: 08-25-2017 EKG 12-LEAD MAYRA RABAGO Start: 08-24-2017 DIET GENERAL MAYRA KERNBob RABAGO Start: 08-24-2017 FULL CODE MAYRA KERNBob RABAGO Start: 08-24-2017 IP CONSULT TO HOSPITALIST MAYRA RUIZ Start: 08-24-2017 MONITOR MAYRA RABAGO Start: 08-24-2017 NURSING COMMUNICATION I CLAUDIA RUIZ Start: 08-24-2017 TOBACCO CESSATION EDUCATION MAYRA RUIZ Start: 08-24-2017 UNRESTRICTED VISITAT ION STATUS AMELIAKYLER JOSEPH Start: 08-24-2017 VITAL SIGNS AMELIAKYLER BRIDGER RABAGO Start: 08-24-2017 PATIENT STATUS (FROM ED OR OR/PROCEDURAL) MAYRA RUIZ Start: 08-24-2017 ACETAMINOPHEN LEVEL AMELIA RUIZ Start: 08-24-2017 Assay of thyroid stimulating hormone tsh MAYRA RUIZ Start: 08-24-2017 Blood count complete auto&auto difrntl wbc MAYRA RUIZ Start: 08-24-2017 CK-MB INDEX MAYRA SPARKS URK Start: 08-24-2017 Comprehensive metabo lic panel MAYRA RUIZ Start: 08-24-2017 ETHANOL MAYRA CRISTINAK Start: 08-24-2017 SALICYLATE LEVEL MAYRA RUIZ Start: 08-24-2017 Culture bacterial quanttative colony count urine MAYRA RUIZ Start: 08-24-2017 Microscopic urinalysis MAYRA RUIZ Start: 08-24-2017 URINE DRUG SCREEN MAYRA RUIZ Start: 08-24-2017 Urine test visual color cmprsn meths MAYRA RUIZ Start: 08-24-2017 URINE RT REFLEX TO CULTURE MAYRA RUIZ Start: 08-24-2017 SUICIDE PRECAUTIONS AMELIA RUIZ Start: 11-12-2016 Arthroscopy of shoulder A Suhail Noemy Repair of musculoten dinous cuff of shoulder Flakito Armendariz Comment on above: left wisdom teeth extraction Gabo Armendariz Plan of Treatment Date Care Activity Detail Author Start: 11-02-2027 DTaP,Tdap and Td Vaccines (2 - Td or Tdap) DTaP,Tdap and Td Vaccines (2 - Td or Tdap) [facility] Start: 11-02-2027 DTaP/Tdap/Td vaccine (2 - Td or Tdap) DTaP/Tdap/Td vaccine (2 - Td or Tdap) [facility] Start: 11-02-2027 DTaP/Tdap/Td vaccine (2 - Td) DTaP/Tdap/Td vaccine (2 - Td) [facility] [place] Start: 08-15-2025 Screening for malign ant neoplasm of cervix Pap smear [facility] Start: 04-29-2024 Adult BMI Screening Adult BMI Screen ing [facility] Start: 04-29-2024 Tobacco Screening Tobacco Screening [facility] Start: 04-13-2024 Screening for malign ant neoplasm of cervix Pap smear [facility] Start: 02-06-2024 Adult BMI Screening Adult BMI Screen ing [facility] Start: 02-06-2024 Tobacco Screening Tobacco Screening [facility] Start: 09-15-2023 FQHC visit, estab pt Medical E stablished Patient [facility] Work Phone: Start: 06-16-2023 End: 06-16-2023 Patient education based on identified need [facility] Start: 05-23-2023 FQHC visit, estab pt Medical E stablished Patient [facility] Work Phone: Start: 05-09-2023 Comprehensive metabo lic 2000 panel - Serum or Plasma [facility] Start: 04-23-2023 End: 04-23-2023 Patient education based on identified need BHP and PA discussed patient's mood and overal functioning, noting that patient reports feeling that medication has been helpful, feels that depression and anxiety have decreased. BHP and PA discussed patient's concerns related to sleep, discussed options to treat sleep, noting that patient is allergic to melatonin and feels that trazadone makes her too groggy, agreed to trial of doxylamine. Discussed sleep hygiene as well [facility] Start: 04-23-2023 [facility] visit, estab pt Medical E stablished Patient [facility] Work Phone: Start: 04-23-2023 End: 04-23-2023 Patient education based on identified need [facility] Start: 04-09-2023 End: 04-09-2023 Patient education based on identified need *BHP offered active and supportive listening, normalized emotions and feelings, and processed current stressors noting patient is endorsing worsening anxiety, depression, and sleep issues. BHP and PA discussed previous medications she was on acknowledging that patient would like to restart the same medications she was on previously. BHP and PA discussed nicotine replacement with patient noting patient would like nicotine patches as they worked for her in the past. Patient was receptive during todays visit [facility] Start: 04-09-2023 End: 04-09-2023 Provider instructions for treatment Intervention and counseling on cessation of tobacco use, 3-10 minutes Discussed medication and nicotine replacement for tobacco cessation [facility] Start: 04-09-2023 End: 04-09-2023 Patient education based on identified need [facility] Start: 04-09-2023 End: 04-09-2023 Provider instructions for treatment Intervention and counseling on cessation of tobacco use, 3-10 minutes Discussed medication and nicotine replacement for tobacco cessation [facility] Start: 04-04-2023 Depression Monitoring Depression Pati CEBALLOS [facility] Start: 02-24-2023 FQ visit, estab pt He [facility] Start: 02-23-2023 Other Diagnostic Test: [facility] Start: 01-24-2023 End: 01-24-2023 Patient education based on identified need *BHP offered active and supportive listening, normalized emotions and feelings, and processed current stressors. ~*Discussed healthy coping skills and positive supports in patient's life. ~*Discussed proper sleep hygiene skills to implement to improve sleep. ~ [facility] Start: 01-24-2023 End: 01-24-2023 Patient education based on identified need [facility] Start: 01-08-2023 FQHC visit, estab pt Medical E stablished Patient [facility] Work Phone: Start: 12-29-2022 OTHER Lab: [facility] Start: 11-29-2022 End: 11-29-2022 Patient education based on identified need [facility] Start: 11-16-2022 Group a Strep DNA (GASDNA) [facility] Start: 11-05-2022 End: 11-05-2022 Patient education based on identified need [facility] Start: 10-18-2022 COVID-19 Vaccine ( season) COVID-19 Vaccine () [facility] Start: 10-18-2022 [facility] Start: 10-17-2022 End: 10-17-2022 Patient education based on identified need [facility] Start: 10-17-2022 End: 10-17-2022 Provider instructions for treatment Intervention and counseling on cessation of tobacco use, 3-10 minutes Discussed medication and nicotine replacement for tobacco cessation [facility] Start: 10-16-2022 CBC panel - Blood by Automated count [facility] Start: 10-16-2022 Ferritin [Mass/volum e] in Serum or Plasma FERRITIN [facility] Start: 10-09-2022 End: 10-09-2022 Patient education based on identified need [facility] Start: 09-18-2022 End: 09-18-2022 Patient education based on identified need [facility] Start: 09-17-2022 Influenza vaccination [facility] ON [facility] Start: 08-19-2022 FQHC visit, estab pt Medical E stablished Patient [facility] Work Phone: Start: 08-15-2022 Adult BMI Follow Up Plan Adult BMI Follow Up Plan [facility] Start: 08-15-2022 Depression [facility] Start: 08-15-2022 Hemoglobin A1c measurement A1C test (Diabetic or Prediabetic) [facility]EN [facility] Start: 07-11-2022 End: 07-11-2022 Patient encounter procedure 07/11/2022 Office Visit Obstetrics and Gynecology Ela Sen, SUBSCRIPTION AGENT - [employer]OPER [address] [place] [address] [facility] 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 [employer] Start: 06-16-2022 Other Diagnostic Test: [facility] Start: 05-27-2022 End: 05-27-2022 Patient education based on identified need [facility] Start: 05-23-2022 FQHC visit, estab pt Medical E stablished Patient [facility] Work Phone: Start: 05-21-2022 Hematology [facility] Work Phone: Comment on above: Note: Please make a referral to: Start: 05-17-2022 End: 05-17-2022 Patient education based on identified need [facility] Start: 05-10-2022 Hemoglobin A1c measurement A1C test (Diabetic or Prediabetic) [facility] Start: 05-07-2022 Depression Monitoring Depression Pati [facility] Start: 05-06-2022 CBC panel - Blood by Automated count [facility] Start: 04-29-2022 [facility] Work Phone: Comment on above: Note: Please make a referral to: Start: 04-29-2022 End: 04-29-2022 Patient education based on identified need [facility] Start: 12-04-2021 COVID-19 Vaccine (3 - Mixed Product series) COVID-19 Vaccine (3 - Mixed Product series) [facility] Start: 10-18-2021 Influenza vaccination Flu vacc ine (Season Ended) [facility] Start: 09-17-2021 Influenza vaccination Flu vaccine (# 1) [facility] Start: 07-19-2021 End: 07-19-2021 Nursing evaluation of patient and report 07/19/2021 Nurse Only Obstetrics and Gynecology [facility] Obstetrics & Gynecology Start: 07-19-2021 End: 07-19-2021 Patient encounter procedure 07/19/2021 Appointment Physical Therapy Trixie Dong PT [facility] Physical Therapy Start: 07-05-2021 End: 07-05-2021 Patient encounter procedure 07/05/2021 Office Visit Orthopedic Surgery [facility] Start: 07-02-2021 End: 07-02-2021 Nursing evaluation of patient and report 07/02/2021 Nurse Only Obstetrics and Gynecology [facility] Obstetrics & Gynecology Start: 06-21-2021 End: 06-21-2021 Patient encounter procedure 06/21/2021 Office Visit Orthopedic Surgery [facility] Start: 06-14-2021 End: 06-14-2021 Patient encounter procedure 06/14/2021 Office Visit Internal Medicine Johana Ayala MD [address] [facility] [place] [address] [facility] Start: 05-15-2021 End: 05-15-2021 Patient encounter procedure 05/15/2021 Appointment Pulmonary Function Testing [facility] Start: 04-23-2021 Screening for Chlamy darby trachomatis [facility] Start: 03-29-2021 End: 03-29-2021 Patient encounter procedure 03/29/2021 Office Visit Orthopedic Surgery 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 [place] Start: 03-05-2021 End: 03-05-2021 Patient encounter procedure 03/05/2021 Office Visit Obstetrics and Gynecology Celeste Eng, [address] [facility] ANDREZ [address] [place] [address] [facility] rubber tubing [employer] [place] Start: 01-30-2021 End: 01-30-2021 Patient encounter procedure 01/30/2021 Appointment Physical Therapy Maribel He, DAMARIS [facility] Physical Therapy Start: 12-30-2020 COVID-19 Vaccine (2 - Mixed Product series) COVID-19 Vaccine (2 - Mixed Product series) [facility] Start: 12-02-2020 COVID-19 Vaccine (2 - Inadvertent 3-dose series) COVID-19 Vaccine (2 - Inadvertent 3-dose series) [facility] Start: 12-02-2020 COVID-19 Vaccine (2 - Mixed Product series) COVID-19 Vaccine (2 - Mixed Product series) [facility] Start: 11-14-2020 End: 11-14-2020 Patient encounter procedure 11/14/2020 Office Visit Orthopedic Surgery Matthew Soler, DO [address] [facility] [address] [place] [address] [phone] [facility] Start: 10-18-2020 Influenza vaccination [facility] Start: 10-19-2019 Influenza vaccination [place], [place] Start: 07-26-2019 Creatinine measurement Creatinine mo nitoring [facility] [place] Start: 07-26-2019 Potassium monitoring Potassium monit oring [place] Start: 2018 Screening for malign ant neoplasm of cervix [facility] Start: 2013 COVID-19 Vaccine (1) COVID-19 Vaccin e (1) [facility] Work Phone: Start: 2013 Screening for Chlamy darby trachomatis Chlamydia screen [place], [place] Start: 2012 HIV screening HIV screen [facility] Start: 2009 COVID-19 Vaccine (1) COVID-19 Vaccin e (1) [facility] Start: 2009 Depression Monitoring Depression Mon [facility] Start: 2008 HPV vaccine (1 - 2-d ose series) HPV vaccine (1 - 2-dose series) [facility] Start: 08-03-2003 Pneumococcal 0-64 ye ars Vaccine (1 - PCV) Pneumococcal 0-64 years Vaccine (1 - PCV) [facility] Start: 08-03-2003 Pneumococcal 0-64 ye ars Vaccine (1 of 1 - PPSV23) Pneumococcal 0-64 years Vaccine (1 of 1 - PPSV23) [place] Start: 08-03-2003 Pneumococcal 0-64 ye ars Vaccine (1 of 2 - PPSV23) Pneumococcal 0-64 years Vaccine (1 of 2 - PPSV23) [facility] Start: 2002 COVID-19 Vaccine (1) COVID-19 Vaccin e (1) [facility] Start: 1998 Varicella vaccine (1 of 2 - 2-dose childhood series) [facility] Start: 1997 Hepatitis B vaccine (1 of 3 - 3-dose series) Hepatitis B vaccine (1 of 3 - 3-dose series) BON LORENZO [facility] Start: 1997 Hepatitis C screening Hepatitis C sc reen [facility] Start: 1997 Tobacco Counseling Tobacco Counselin g [facility] Atopobium vaginae DN A [Presence] in Vaginal fluid by ASHELY with probe detection [facility] Work Phone: Bacterial vaginosis associated bacterium 2 DNA [Presence] in Vaginal fluid by ASHELY with probe detection [facility] Work Phone: End: 04-23-2020 C.trachomatis N.gonorrhoeae DNA C.trachomatis N.gonorrhoeae DNA Microbiology Routine One Time for 1 Occurrences starting 04/23/2020 until 04/23/2020 [facility] Work Phone: Comment on above: One Time for 1 Occur rences starting 04/23/2020 until 04/23/2020 C.trachomatis N.gonorrhoeae DNA C.trachomatis N.gonorrhoeae DNA Microbiology Stat [employer] Label print 04/23/2020 3:06 AM EST [facility] Work Phone: CBC W Auto Different ial panel - Blood CBC with DIFF Lab Stat [employer] Label print 09/02/2020 2:45 AM EDT [facility] Work Phone: CT ABDOMEN PELVIS W IV CONTRAST Additional Contrast? None CT ABDOMEN PELVIS W IV CONTRAST Additional Contrast? None Imaging STAT 08/09/2019 1:02 AM EDT [facility] [facility] [place] End: 08-08-2019 Culture, Urine Culture, Urine Microbiology Routine Once for 1 Occurrences starting 08/08/2019 until 08/08/2019 [facility] [employer] [place] Comment on above: Once for 1 Occurrenc es starting 08/08/2019 until 08/08/2019 Culture, Urine Culture, Urine Microbiology Routine 08/08/2019 11:06 PM EDT [facility] [place] End: 06-19-2021 Culture, Urine [facility] Work Phone: Comment on above: Once for 1 Occurrenc es starting 06/19/2021 until 06/19/2021 EKG 12 Lead EKG 12 Lead ECG STAT 08/08/2019 10:47 PM EDT [facility] [place] End: 10-17-2022 Factor 5 Leiden SUELLEN LORENZO [employer] Work Phone: Comment on above: Once for 1 Occurrenc es starting 10/17/2022 until 10/17/2022 Megasphaera sp type 1 DNA [Presence] in Vaginal fluid by ASHELY with probe detection [facility] Work Phone: End: 11-28-2019 PREVIOUS SPECIMEN PREVIOUS SPECIMEN Lab STAT Once for 1 Occurrences starting 11/28/2019 until 11/28/2019 [place] Comment on above: Once for 1 Occurrenc es starting 11/28/2019 until 11/28/2019 PREVIOUS SPECIMEN [facility]- [place], [place] End: 09-08-2020 PREVIOUS SPECIMEN PREVIOUS SPECIMEN Lab Routine Once for 1 Occurrences starting 09/08/2020 until 09/08/2020 [facility] Work Phone: Comment on above: Once for 1 Occurrenc es starting 09/08/2020 until 09/08/2020 End: 10-18-2022 Strep A DNA probe, amplification SUELLEN VENTURA [facility] Work Phone: Comment on above: Once for 1 Occurrenc es starting 10/18/2022 until 10/18/2022 Urine culture Urine Culture [facility] Immunizations Immunization Date Immunization Notes Care Provider Fa cility 11-29-2022 influenza virus vaccine, unspecified formulation [facility] 11-29-2022 influenza, injectabl e, quadrivalent, preservative free; Translations: [Fluarix] Carrol Culp [employer] Work Phone: [facility] Comment on above: Note: Patient tolera arianna well. No signs or symptoms of adverse reactions. Patient waited a minimum of 15 minutes. 11-29-2022 Imm.Admin. 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) Carrol Culp DDS Work Phone: [facility] 10-09-2021 1st Dose MODERNA COVID-19 Vaccine Juanita MORALES-Blair Work Phone: [facility] 11-04-2020 1st Dose MODERNA COVID-19 Vaccine [facility] MORAL[facility]-Blair Work Phone: [facility] 11-04-2020 COVID-19, [place] Vaccine , Vaccine Unspecified Nicole Rocha MD Work Phone: [facility] 12-19-2017 influenza virus vaccine, unspecified formulation [facility] 12-19-2017 Influenza, injectabl e, Madin Wendy Canine Kidney, preservative free, quadrivalent Nicole Rocha MD Work Phone: [facility] Work Phone: 12-01-2017 Influenza Vaccine, unspecified formulation Son Dinh [facility] [place] 12-01-2017 influenza virus vaccine, unspecified formulation [facility] 12-01-2017 influenza, injectabl e, quadrivalent, preservative free Nicole Rocha MD Work Phone: [facility] Work Phone: 11-01-2017 tetanus toxoid, reduced diphtheria toxoid, and acellular pertussis vaccine, adsorbed [facility] 01-03-2017 influenza virus vaccine, unspecified formulation [facility] 01-03-2017 Influenza, injectabl e, Madin Chireno Canine Kidney, preservative free, quadrivalent Nicole Rocha MD Work Phone: [facility] Work Phone: Payers Date Payer Category Payer Medicaid [facility] MEDICA[facility] MEDICAID [id number] 2022-Present [address] [place] [address] [id number] 2022 Unknown 2018 Unknown [id number] [id number]. [id number] 2017 Unknown KEMI GUILLEN [facility] MEDICAID [id number] 2017-Present [phone] CLAIMS DEPARTMENT [address] [place] [address] xxxxxxxxxxx [id number]. [id number] 2017 Unknown [id number] 2017 Unknown [id number] 2014 Unknown [id number] 2.16.840.1.931204.3.140.1. 75520.5.10.6.3 2014 Unknown [id number] 2.16.840.1.345495.3.140.1. 76809.5.10.6.3 1997 Unknown [id number] 2.16.840.1.534240.3.579.2. 593 1997 Unknown [id number] 2.16.840.1.350713.3.579.2. 174 1997 Unknown [id number] 2.16.840.1.563445.3.579.2. 174 1997 Unknown [id number] 2.16.840.1.224624.3.579.2. 647 1997 Unknown [id number] 2.16.840.1.580543.3.579.2. 647 1997 Unknown [id number] 2.16.840.1.279341.3.579.2. 647 1997 Unknown [id number] 2.16.840.1.918700.3.579.2. 647 1997 Unknown [id number] 2.16.840.1.998639.3.579.2. 647 1997 Unknown [id number] 2.16.840.1.397193.3.579.2. 196 1997 Unknown [id number] 2.16.840.1.433627.3.579.2. 175 1997 Unknown [id number] 2.16.840.1.466172.3.579.2. 175 1997 Unknown [id number] 2.16.840.1.252580.3.579.2. 175 1997 Unknown [id number] 2.16.840.1.804764.3.579.2. 175 1997 Unknown [id number] 2.16.840.1.963507.3.579.2. 175 1997 Unknown [id number] 2.16.840.1.093466.3.579.2. 175 1997 Unknown [id number] 2.16.840.1.187522.3.579.2. 175 1997 Unknown [id number] 2.16.840.1.134739.3.579.2. 175 1997 Unknown [id number] 2.16.840.1.022694.3.579.2. 1286 1997 Unknown [id number] 2.16.840.1.593670.3.579.2. 1286 1997 Unknown [id number] 2.16.840.1.206494.3.579.2. 1286 1997 Unknown [id number] 2.16.840.1.520882.3.579.2. 176 1997 Unknown [id number] 2.16.840.1.083755.3.579.2. 176 1997 Unknown [id number] 2.16.840.1.053929.3.579.2. 727 1997 Unknown [id number] 2.16.840.1.376498.3.579.2. 727 1997 Unknown [id number] 2.16.840.1.109262.3.579.2. 727 1997 Unknown [id number] 2.16.840.1.112655.3.579.2. 727 1959 Self-pay [id number] Medicaid [id number] Medicaid [id number] Private Health Insurance [id number] Self-pay Unknown [id number] Social History Date Type Detail Facility Start: 08-03-2019 End: 01-06-2023 Tobacco smoking status NHIS Current every day smoker [facility] [employer] History of tobacco use Cigarette Smoker [place] Start: 08-03-2019 End: 03-30-2020 Cigarettes smoked current (pack per day) - Reported [place] Start: 08-03-2019 End: 12-01-2019 Alcohol intake Current non-drinker of alcohol (finding) [place] Start: 1997 Sex Assigned At Not on file [place] Exposure to SARS-CoV-2 (event) Unable to assess [place] Start: 11-28-2019 End: 01-06-2023 Tobacco use and exposure Never used [place] Start: 04-27-2021 End: 12-24-2021 Exposure to SARS-CoV-2 (event) Not sure [place] Start: 04-23-2020 End: 09-02-2023 Tobacco smoking status [facility] Former smoker [facility] [employer] Start: 04-23-2020 End: 04-30-2023 Alcohol intake [facility]finding[facility] Work [facility]: Start: 04-23-2020 End: 11-08-2021 Tobacco Comment Stopped @/02/2020 [facility] Work Phone: Start: 04-23-2020 Alcohol Comment social [facility] Work Phone: Start: 05-07-2021 End: 04-04-2022 History 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 Financial 5 [employer] Work Phone: Start: 05-07-2021 End: 04-04-2022 History SDOH Food Worry 1 [facility] Phone: Start: 05-19-2020 Tobacco smoking status GAIS Smoker (finding) [facility] Start: 03-30-2020 End: 09-06-2022 History of tobacco use [facility] Work Phone: Start: 1995 Sex Assigned At Female F [facility] Start: 12-23-2021 Tobacco smoking status GAIS Occasional tobacco smoker [employer] [facility] Assertion [facility] Assertion Lives with hector nion (finding) [facility] Assertion Full-time employ ment (finding) [facility] Assertion Social drinker (finding) [facility] Assertion Sexually active (finding) [facility] Assertion Gender identity finding (finding) [facility] Assertion Finding of sexua l orientation (finding) [facility] Tobacco smoking status Unknown if ever smoked [facility] Work Phone: Start: 04-04-2022 History 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 Never true [employer] At any time in the past 12 months, were you homeless or living in fpc [including now]? No [employer] History of tobacco use Tobacco Use Types Packs/Day Years Used Date Smoking Tobacco: Every Day Vaping/E-cigarettes Smokeless Tobacco: Never [facility] Start: 02-19-2022 Tobacco Comment refused counseling [facility] Start: 01-10-2020 Alcohol Comment Occassionally [facility] Assertion Lives alone (finding) [facility] NEGATED: Highlighted row Assertion Contraception (finding) [facility] NEGATED: Highlighted row Assertion [facility] NEGATED: Highlighted row Assertion Misuses drugs (finding) [facility] NEGATED: Highlighted row Assertion Current drinker of alcohol (finding) [facility] NEGATED: Highlighted row Assertion Exposure to pollution (event) [facility] NEGATED: Highlighted row Assertion Finding relating to drug misuse behavior (finding) [facility] NEGATED: Highlighted row Assertion Sexually active (finding) [facility] Medical Equipment Procedure Code Equipment Code Equipment Origin al Text Equipment Identifier Dates OneTouch Ultra I n Vitro Strip [id number] Start: 09-18-2022 End: 12-06-2022 OneTouch UltraSo ft 2 Lancets Miscellaneous [id number] Start: 09-18-2022 End: 04-09-2023 OneTouch Ultra I n Vitro Strip [id number] Start: 12-06-2022 End: 04-09-2023 1 strip by other route as needed for high blood sugar. [id number] Start: 07-02-2021 OneTouch Ultra I n Vitro Strip [id number] Start: 04-09-2023 OneTouch UltraSo ft 2 Lancets Miscellaneous [id number] Start: 04-09-2023 Functional Status Date Assessment Result Facility 09-02-2023 Functional Status N/A [facility] Mental Status Date Assessment Result Facility Cognitive function Oriented to t teresa, place, and person Oriented to person, time and place (finding) [facility] Work Phone: Clinical Notes 08-24-2020 to 09-29-2023 Note Date & Type Note Facility 09-29-2023 Note Patient Education Nutrition BMI for Adults What is BMI? Body mass index (BMI) is a number that is calculated from a person's weight and height. BMI can help estimate how much of a person's weight is composed of fat. BMI does not measure body fat directly. Rather, it is an alternative to procedures that directly measure body fat, which can be difficult and expensive. BMI can help identify people who may be at higher risk for certain medical problems. What are BMI measurements used for? BMI is used as a screening tool to identify possible weight problems. It helps determine whether a person is obese, overweight, a healthy weight, or underweight. BMI is useful for: ? Identifying a weight problem that may be related to a medical condition or may increase the risk for medical problems. ? Promoting changes, such as changes in diet and exercise, to help reach a healthy weight. BMI screening can be repeated to see if these changes are working. How is BMI calculated? BMI involves measuring your weight in relation to your height. Both height and weight are measured, and the BMI is calculated from those numbers. This can be done either in [place] or metric measurements. Note that charts and online BMI calculators are available to help you find your BMI quickly and easily without having to do these calculations yourself. To calculate your BMI in [place] measurements: 1. Measure your weight in pounds (lb). 2. Multiply the number of pounds by 703. ? For example, for a person who weighs 180 lb, multiply that number by 703, which equals 126,540. 3. Measure your height in inches. Then multiply that number by itself to get a measurement called inches squared. ? For example, for a person who is 70 inches tall, the inches squared measurement is 70 inches x 70 inches, which equals 4,900 inches squared. 4. Divide the total from step 2 (number of lb x 703) by the total from step 3 (inches squared): 126,540 ? 4,900 = 25.8. This is your BMI. To calculate your BMI in metric measurements: 1. Measure your weight in kilograms (kg). 2. Measure your height in meters (m). Then multiply that number by itself to get a measurement called meters squared. ? For example, for a person who is 1.75 m tall, the meters squared measurement is 1.75 m x 1.75 m, which is equal to 3.1 meters squared. 3. Divide the number of kilograms (your weight) by the meters squared number. In this example: 70 ? 3.1 = 22.6. This is your BMI. What do the results mean? BMI charts are used to identify whether you are underweight, normal weight, overweight, or obese. The following guidelines will be used: ? Underweight: BMI less than 18.5. ? Normal weight: BMI between 18.5 and 24.9. ? Overweight: BMI between 25 and 29.9. ? Obese: BMI of 30 or above. Keep these notes in mind: ? Weight includes both fat and muscle, so someone with a muscular build, such as an athlete, may have a BMI that is higher than 24.9. In cases like these, BMI is not an accurate measure of body fat. ? To determine if excess body fat is the cause of a BMI of 25 or higher, further assessments may need to be done by a health care provider. ? BMI is usually interpreted in the same way for men and women. Where to find more information For more information about BMI, including tools to quickly calculate your BMI, go to these websites: ? Centers for Disease Control and Prevention: www.cdc.gov ? [place] [employer]: www.heart.org ? National Heart, Lung, and Blood [place]: www.nhlbi.nih.gov Summary ? Body mass index (BMI) is a number that is calculated from a person's weight and height. ? BMI may help estimate how much of a person's weight is composed of fat. BMI can help identify those who may be at higher risk for certain medical problems. ? BMI can be measured using [place] measurements or metric measurements. ? BMI charts are used to identify whether you are underweight, normal weight, overweight, or obese. This information is not intended to replace advice given to you by your health care provider. Make sure you discuss any questions you have with your health care provider. Document Revised: 10/27/2019 Document Reviewed: 09/03/2019 [employer] Patient Education ? 2022 [employer]. [facility] 09-02-2023 Hospital Discharg e instructions Patient Education 09/02/2023 09:35:20 BMI for Adults BMI for Adults What is BMI? Body mass index (BMI) is a number that is calculated from a person's weight and height. BMI can help estimate how much of a person's weight is composed of fat. BMI does not measure body fat directly. Rather, it is an alternative to procedures that directly measure body fat, which can be difficult and expensive. BMI can help identify people who may be at higher risk for certain medical problems. What are BMI measurements used for? BMI is used as a screening tool to identify possible weight problems. It helps determine whether a person is obese, overweight, a healthy weight, or underweight. BMI is useful for: Identifying a weight problem that may be related to a medical condition or may increase the risk for medical problems. Promoting changes, such as changes in diet and exercise, to help reach a healthy weight. BMI screening can be repeated to see if these changes are working. How is BMI calculated? BMI involves measuring your weight in relation to your height. Both height and weight are measured, and the BMI is calculated from those numbers. This can be done either in [place] or metric measurements. Note that charts and online BMI calculators are available to help you find your BMI quickly and easily without having to do these calculations yourself. To calculate your BMI in [place] measurements: 1.Measure your weight in pounds (lb). 2.Multiply the number of pounds by 703. For example, for a person who weighs 180 lb, multiply that number by 703, which equals 126,540. 3.Measure your height in inches. Then multiply that number by itself to get a measurement called inches squared. For example, for a person who is 70 inches tall, the inches squared measurement is 70 inches x 70 inches, which equals 4,900 inches squared. 4.Divide the total from step 2 (number of lb x 703) by the total from step 3 (inches squared): 126,540 4,900 = 25.8. This is your BMI. To calculate your BMI in metric measurements: 1.Measure your weight in kilograms (kg). 2.Measure your height in meters (m). Then multiply that number by itself to get a measurement called meters squared. For example, for a person who is 1.75 m tall, the meters squared measurement is 1.75 m x 1.75 m, which is equal to 3.1 meters squared. 3.Divide the number of kilograms (your weight) by the meters squared number. In this example: 70 3.1 = 22.6. This is your BMI. What do the results mean? BMI charts are used to identify whether you are underweight, normal weight, overweight, or obese. The following guidelines will be used: Underweight: BMI less than 18.5. Normal weight: BMI between 18.5 and 24.9. Overweight: BMI between 25 and 29.9. Obese: BMI of 30 or above. Keep these notes in mind: Weight includes both fat and muscle, so someone with a muscular build, such as an athlete, may have a BMI that is higher than 24.9. In cases like these, BMI is not an accurate measure of body fat. To determine if excess body fat is the cause of a BMI of 25 or higher, further assessments may need to be done by a health care provider. BMI is usually interpreted in the same way for men and women. Where to find more information For more information about BMI, including tools to quickly calculate your BMI, go to these websites: Centers for Disease Control and Prevention: www.cdc.gov [place] [employer]: www.heart.org National Heart, Lung, and Blood [place]: www.nhlbi.nih.gov Summary Body mass index (BMI) is a number that is calculated from a person's weight and height. BMI may help estimate how much of a person's weight is composed of fat. BMI can help identify those who may be at higher risk for certain medical problems. BMI can be measured using [place] measurements or metric measurements. BMI charts are used to identify whether you are underweight, normal weight, overweight, or obese. This information is not intended to replace advice given to you by your health care provider. Make sure you discuss any questions you have with your health care provider. Document Revised: 10/27/2019 Document Reviewed: 09/03/2019 [facility] Patient Education 2022 [employer]. 09/02/2023 09:35:18 Acute Knee Pain, Adult, [id number] Acute Knee Pain, Adult Many things can cause knee pain. Sometimes, knee pain is sudden (acute) and may be caused by damage, swelling, or irritation of the muscles and tissues that support your knee. The pain often goes away on its own with time and rest. If the pain does not go away, tests may be done to find out what is causing the pain. Follow these instructions at home: If you have a knee sleeve or brace: Wear the knee sleeve or brace as told by your doctor. Take it off only as told by your doctor. Loosen it if your toes: ?Tingle. ?Become numb. ?Turn cold and blue. Keep it clean. If the knee sleeve or brace is not waterproof: ?Do not let it get wet. ?Cover it with a watertight covering when you take a bath or shower. Activity Rest your knee. Do not do things that cause pain or make pain worse. Avoid activities where both feet leave the ground at the same time (high-impact activities). Examples are running, jumping rope, and doing jumping jacks. Work with a physical therapist to make a safe exercise program, as told by your doctor. Managing pain, stiffness, and swelling If told, put ice on the knee. To do this: ?If you have a removable knee sleeve or brace, take it off as told by your doctor. ?Put ice in a plastic bag. ?Place a towel between your skin and the bag. ?Leave the ice on for 20 minutes, 2 3 times a day. ?Take off the ice if your skin turns bright red. This is very important. If you cannot feel pain, heat, or cold, you have a greater risk of damage to the area. If told, use an elastic bandage to put pressure (compression) on your injured knee. Raise your knee above the level of your heart while you are sitting or lying down. Sleep with a pillow under your knee. General instructions Take cpte-vzv-mcsrxyl and prescription medicines only as told by your doctor. Do not smoke or use any products that contain nicotine or tobacco. If you need help quitting, ask your doctor. If you are overweight, work with your doctor and a food expert (dietitian) to set goals to lose weight. Being overweight can make your knee hurt more. Watch for any changes in your symptoms. Keep all follow-up visits. Contact a doctor if: The knee pain does not stop. The knee pain changes or gets worse. You have a fever along with knee pain. Your knee is red or feels warm when you touch it. Your knee gives out or locks up. Get help right away if: Your knee swells, and the swelling gets worse. You cannot move your knee. You have very bad knee pain that does not get better with pain medicine. Summary Many things can cause knee pain. The pain often goes away on its own with time and rest. Your doctor may do tests to find out the cause of the pain. Watch for any changes in your symptoms. Relieve your pain with rest, medicines, light activity, and use of ice. Get help right away if you cannot move your knee or your knee pain is very bad. This information is not intended to replace advice given to you by your health care provider. Make sure you discuss any questions you have with your health care provider. Document Revised: 07/19/2020 Document Reviewed: 07/19/2020 [facility] Patient Education 2022 [employer]. [facility] 09-02-2023 Note Patient Education Nutrition BMI for Adults What is BMI? Body mass index (BMI) is a number that is calculated from a person's weight and height. BMI can help estimate how much of a person's weight is composed of fat. BMI does not measure body fat directly. Rather, it is an alternative to procedures that directly measure body fat, which can be difficult and expensive. BMI can help identify people who may be at higher risk for certain medical problems. What are BMI measurements used for? BMI is used as a screening tool to identify possible weight problems. It helps determine whether a person is obese, overweight, a healthy weight, or underweight. BMI is useful for: ? Identifying a weight problem that may be related to a medical condition or may increase the risk for medical problems. ? Promoting changes, such as changes in diet and exercise, to help reach a healthy weight. BMI screening can be repeated to see if these changes are working. How is BMI calculated? BMI involves measuring your weight in relation to your height. Both height and weight are measured, and the BMI is calculated from those numbers. This can be done either in [place] or metric measurements. Note that charts and online BMI calculators are available to help you find your BMI quickly and easily without having to do these calculations yourself. To calculate your BMI in [place] measurements: 1. Measure your weight in pounds (lb). 2. Multiply the number of pounds by 703. ? For example, for a person who weighs 180 lb, multiply that number by 703, which equals 126,540. 3. Measure your height in inches. Then multiply that number by itself to get a measurement called inches squared. ? For example, for a person who is 70 inches tall, the inches squared measurement is 70 inches x 70 inches, which equals 4,900 inches squared. 4. Divide the total from step 2 (number of lb x 703) by the total from step 3 (inches squared): 126,540 ? 4,900 = 25.8. This is your BMI. To calculate your BMI in metric measurements: 1. Measure your weight in kilograms (kg). 2. Measure your height in meters (m). Then multiply that number by itself to get a measurement called meters squared. ? For example, for a person who is 1.75 m tall, the meters squared measurement is 1.75 m x 1.75 m, which is equal to 3.1 meters squared. 3. Divide the number of kilograms (your weight) by the meters squared number. In this example: 70 ? 3.1 = 22.6. This is your BMI. What do the results mean? BMI charts are used to identify whether you are underweight, normal weight, overweight, or obese. The following guidelines will be used: ? Underweight: BMI less than 18.5. ? Normal weight: BMI between 18.5 and 24.9. ? Overweight: BMI between 25 and 29.9. ? Obese: BMI of 30 or above. Keep these notes in mind: ? Weight includes both fat and muscle, so someone with a muscular build, such as an athlete, may have a BMI that is higher than 24.9. In cases like these, BMI is not an accurate measure of body fat. ? To determine if excess body fat is the cause of a BMI of 25 or higher, further assessments may need to be done by a health care provider. ? BMI is usually interpreted in the same way for men and women. Where to find more information For more information about BMI, including tools to quickly calculate your BMI, go to these websites: ? Centers for Disease Control and Prevention: www.cdc.gov ? [place] [employer]: www.heart.org ? National Heart, Lung, and Blood [place]: www.nhlbi.nih.gov Summary ? Body mass index (BMI) is a number that is calculated from a person's weight and height. ? BMI may help estimate how much of a person's weight is composed of fat. BMI can help identify those who may be at higher risk for certain medical problems. ? BMI can be measured using [place] measurements or metric measurements. ? BMI charts are used to identify whether you are underweight, normal weight, overweight, or obese. This information is not intended to replace advice given to you by your health care provider. Make sure you discuss any questions you have with your health care provider. Document Revised: 10/27/2019 Document Reviewed: 09/03/2019 [facility] Patient Education ? 2022 [facility] [employer] Orthopedics Acute Knee Pain, Adult Many things can cause knee pain. Sometimes, knee pain is sudden (acute) and may be caused by damage, swelling, or irritation of the muscles and tissues that support your knee. The pain often goes away on its own with time and rest. If the pain does not go away, tests may be done to find out what is causing the pain. Follow these instructions at home: If you have a knee sleeve or brace: ? Wear the knee sleeve or brace as told by your doctor. Take it off only as told by your doctor. ? Loosen it if your toes: ? Tingle. ? Become numb. ? Turn cold and blue. ? Keep it clean. ? If t (more content not included)... [facility] 06-17-2023 Instructions Includes: Instructions for all patient encounters Intervention and counseling on cessation of tobacco use, 3-10 minutes Discussed medication and nicotine replacement for tobacco cessation Last Documented On 4 10:17AM ; [facility] Intervention and counseling on cessation of tobacco use, 3-10 minutes Discussed medication and nicotine replacement for tobacco cessation Last Documented On 4 10:50AM ; [facility] Intervention and counseling on cessation of tobacco use, 3-10 minutes Discussed medication and nicotine replacement for tobacco cessation Last Documented On 3 8:19PM ; [facility] Education and Decision Aids were provided during visit for: Discussed nutritional needs teach healthy choices including fruits and vegetables Last Documented On 4 1:28PM ; [facility] Patient education about a pr oper diet Last Documented On 4 1:28PM ; [facility] Discussed concerns about exe rcise : promote physical activity Last Documented On 4 1:28PM ; [facility] Not requesting contraception Last Documented On 4 1:28PM ; [facility] BHP and PA discussed patient 's mood and overal functioning, noting that patient reports feeling that medication has been helpful, feels that depression and anxiety have decreased. BHP and PA discussed patient's concerns related to sleep, discussed options to treat sleep, noting that patient is allergic to melatonin and feels that trazadone makes her too groggy, agreed to trial of doxylamine. Discussed sleep hygiene as well Last Documented On 4 12:13PM ; [facility] Discussed nutritional needs teach healthy choices including fruits and vegetables Last Documented On 4 11:01AM ; [facility] Patient education about a pr oper diet Last Documented On 4 11:01AM ; [facility] Discussed concerns about exe rcise : promote physical activity Last Documented On 4 11:01AM ; [facility] Not requesting contraception Last Documented On 4 11:01AM ; [facility] *P offered active and supp ortive listening, normalized emotions and feelings, and processed current stressors noting patient is endorsing worsening anxiety, depression, and sleep issues. BHP and PA discussed previous medications she was on acknowledging that patient would like to restart the same medications she was on previously. BHP and PA discussed nicotine replacement with patient noting patient would like nicotine patches as they worked for her in the past. Patient was receptive during todays visit Last Documented On 4 4:46PM ; [facility] Discussed nutritional needs teach healthy choices including fruits and vegetables Last Documented On 4 9:12AM ; [facility] Patient education about a pr oper diet Last Documented On 4 9:12AM ; [facility] Discussed concerns about exe rcise : promote physical activity Last Documented On 4 9:12AM ; [facility] *P offered active and supp ortive listening, normalized emotions and feelings, and processed current stressors. ~*Discussed healthy coping skills and positive supports in patient's life. ~*Discussed proper sleep hygiene skills to implement to improve sleep. ~ Last Documented On 3 9:42PM ; [facility] Discussed nutritional needs teach healthy choices including fruits and vegetables Last Documented On 3 9:40AM ; [facility] Patient education about a pr oper diet Last Documented On 3 9:40AM ; [facility] Patient education about an a sthma action plan Last Documented On 3 10:31AM ; [facility] Discussed concerns about exe rcise : promote physical activity Last Documented On 3 9:40AM ; [facility] Not requesting contraception Last Documented On 3 9:40AM ; [facility] Discussed nutritional needs teach healthy choices including fruits and vegetables Last Documented On 3 9:08AM ; [facility] Patient education about a pr oper diet Last Documented On 3 9:08AM ; [facility] Discussed concerns about exe rcise : promote physical activity Last Documented On 3 9:08AM ; [facility] Discussed nutritional needs teach healthy choices including fruits and vegetables Last Documented On 3 9:57AM ; [facility] Patient education about a pr oper diet Last Documented On 3 9:57AM ; [facility] Discussed concerns about exe rcise : promote physical activity Last Documented On 3 9:57AM ; [facility] Discussed nutritional needs teach healthy choices including fruits and vegetables Last Documented On 3 9:00AM ; [facility] Patient education about a pr oper diet Last Documented On 3 9:00AM ; [facility] Discussed concerns about exe rcise : promote physical activity Last Documented On 3 9:00AM ; [facility] Not requesting contraception Last Documented On 3 9:00AM ; [facility] Discussed nutritional needs teach healthy choices including fruits and vegetables Last Documented On 3 10:07AM ; [facility] Patient education about a pr oper diet Last Documented On 3 10:07AM ; [facility] Discussed concerns about exe rcise : promote physical activity Last Documented On 3 10:07AM ; [facility] Not requesting contraception Last Documented On 3 10:07AM ; [facility] Discussed nutritional needs teach healthy choices including fruits and vegetables Last Documented On 3 10:02AM ; [facility] Patient education about a pr oper diet Last Documented On 3 10:02AM ; [facility] Discussed concerns about exe rcise : promote physical activity Last Documented On 3 10:02AM ; [facility] Discussed nutritional needs teach healthy choices including fruits and vegetables Last Documented On 3 2:56PM ; [facility] Patient education about a pr oper diet Last Documented On 3 2:56PM ; [facility] Discussed concerns about exe rcise : promote physical activity Last Documented On 3 2:56PM ; [facility] Discussed nutritional needs teach healthy choices including fruits and vegetables Last Documented On 3 2:11PM ; [facility] Patient education about a pr oper diet Last Documented On 3 2:11PM ; [facility] Discussed concerns about exe rcise : promote physical activity Last Documented On 3 2:11PM ; [facility] BHP educated patient on HPWO model of care. BHP and PA discussed patient mood, noting that her screenings were 0, but patient has reported history of bipolar, PTSD, and anxiety and has been on medications for years. BHP and PA discussed patient decision to stop medications to initiate a , noting that patient is following with psychiatry and has good supports around her. BHP praised patient for 6 years substance free Last Documented On 3 11:35AM ; [facility] Discussed nutritional needs teach healthy choices including fruits and vegetables Last Documented On 3 10:53AM ; [facility] Patient education about a pr oper diet Last Documented On 3 10:53AM ; [facility] Discussed concerns about exe rcise : promote physical activity Last Documented On 3 10:53AM ; [facility] Work Phone: [phone] [phone] Evaluation note Includes: Assessments for all patient encounters Findings Encounter Date [Z00.00 - Encounter for [facility] adult medical examination without abnormal findings] visit for: routine adult H&P Open Access - Established with Jleani Harris CNP 06/16/2023 Last Documented On 4 11:29AM ; [facility] [Z68.42 - Body mass index [B MS] 45.0-49.9, adult] assessment of body mass index was 45.2 kg/m2 Open Access - Established with Jelani Harris CNP 06/16/2023 Last Documented On 4 11:29AM ; [facility] Bipolar disorder NOS Established Patient with Odalys SMITH 04/23/2023 Last Documented On 4 12:14PM ; [facility] Nicotine dependence Established Patient with Odalys SMITH 04/23/2023 Last Documented On 4 12:14PM ; [facility] [Z68.42 - Body mass index [B MS] 45.0-49.9, adult] assessment of body mass index was 45.3 kg/m2 Medical Established Patient with Juanita Galvandomaico PA-C 04/23/2023 Last Documented On 4 1:33PM ; [facility] Bipolar I disorder Medical Established Patient w ith Juanita Galvanchip PA-C 04/23/2023 Last Documented On 4 1:33PM ; [facility] Classic migraine with aura w ith intractable migraine with status migrainosus Medical Established Patient with Juanita Jimeneztenchip PA-C 04/23/2023 Last Documented On 4 1:33PM ; [facility] Nicotine dependence continuous Medical E stablished Patient with Juanita Jimeneztendomaico PA-C 04/23/2023 Last Documented On 4 1:33PM ; [facility] Bipolar I disorder Established Patient with Dixon Moran MANAGER [employer] MARKETING-S 04/09/2023 Last Documented On 4 4:48PM ; [facility] Intervention and counseling on cessation of tobacco use, 3-10 minutes Discussed medication and nicotine replacement for tobacco cessation Established Patient with Kristin Moran MANAGER [employer] MARKETING-S 04/09/2023 Last Documented On 4 4:48PM ; [facility] Nicotine dependence Established Patient with Kristin Moran MANAGER [employer] MARK[employer]-S 04/09/2023 Last Documented On 4 4:48PM ; [facility] [Z68.42 - Body mass index [B MS] 45.0-49.9, adult] assessment of body mass index Open Access - Established with Juanita MORALES-C 04/09/2023 Last Documented On 4 10:53AM ; [facility] Assessment of initial prescr iption of implantable subdermal contraceptive Open Access - Established with Juanita MORALES-C 04/09/2023 Last Documented On 4 10:53AM ; [facility] Bipolar I disorder Open Access - Established wit h Juanita MORALES-C 04/09/2023 Last Documented On 4 10:53AM ; [facility] Consent form on file for pro cedure :Nexplanon Open Access - Established with Juanita MORALES-Blair 04/09/2023 Last Documented On 4 10:53AM ; [facility] Intervention and counseling on cessation of tobacco use, 3-10 minutes Discussed medication and nicotine replacement for tobacco cessation Open Access - Established with Juanita Lewis PA-C 04/09/2023 Last Documented On 4 10:53AM ; [facility] Iron deficiency anemia Open Access - Est ablished with Juanita Lewis PA-C 04/09/2023 Last Documented On 4 10:53AM ; [facility] Nexplanon Implant placed Pat ient is being seen today for Nexplanon insertion for control. We have thoroughly discussed Nexplanon, and the patient has no contraindications to the implant or local anesthetics. She understands the success and failure rates of the implant. She is aware of the potential for altered or irregular bleeding patterns and other options for control. We have discussed the insertion procedure and removal procedure, and risks of insertion and removal. She has had an opportunity to have her questions answered. Patient was placed in the supine position. The right arm was flexed at the elbow and externally rotated so that her hand was under her head. Insertion site was identified at the inner side of the arm 8-10 cm above the medial epicondyle of the humerus and 3-4 cm posterior to the sulcus overlying the triceps muscle. Two estrada were made with a sterile marker: the first located at the insertion site and the second a few centimeters proximal to the first gloria to guide direction. The insertion site was cleaned with an antiseptic solution. The insertion site was anesthetized with 3 mL 2% lidocaine with epi. The skin was stretched around the insertion site with the thumb and index finger. The skin was punctured with the tip of the needle angled about 30 degrees. The implant was inserted subdermally. Placement was verified by myself and the patient via palpation. The patient tolerated the procedure well Open Access - Established with Juanita Lewis PA-C 04/09/2023 Last Documented On 4 10:53AM ; [facility] Nexplanon Implant Wound Care : Patient was instructed on wound care. She is to leave the pressure dressing in place for 24 hours. After 24 hours, she may remove the pressure dressing, but not the bandaid. That should stay in place for 3-5 days. Patient was also instructed that she needs to continue to use condoms for the first month. The patient understands to follow up if fever, chills, light headed, chest pain, shortness of breath, heavy bleeding or any other severe symptom Open Access - Established with Juanita Lewis PA-C 04/09/2023 Last Documented On 4 10:53AM ; [facility] Prediabetes Open Access - Established with Harjinder barlow Barbaranadeemdomaico PA-C 04/09/2023 Last Documented On 4 10:53AM ; [facility] Bipolar I disorder BH Established Patient with Dixon Moran MANAGER [employer]-S 01/24/2023 Last Documented On 3 9:45PM ; [facility] [G47.30 - Sleep apnea, unspe cified] organic sleep apnea Medical Established Patient with Juanita Mandydorf PA-C 01/24/2023 Last Documented On 3 10:48AM ; [facility] [Z68.42 - Body mass index [B MS] 45.0-49.9, adult] assessment of body mass index was 46.3 kg/m2 Medical Established Patient with Juanita Barbaratendorf PA-C 01/24/2023 Last Documented On 3 10:48AM ; [facility] Classic migraine with aura w ith intractable migraine with status migrainosus Medical Established Patient with Juanita Mandydorf PA-C 01/24/2023 Last Documented On 3 10:48AM ; [facility] Mild persistent asthma with exacerbation Medical Established Patient with Juanita Hattendorf PA-C 01/24/2023 Last Documented On 3 10:48AM ; [facility] [Z02.1 - Encounter for pre-e mployment examination] routine pre-employment screening examination Open Access - Established with Juanita Lewis PA-C 11/29/2022 Last Documented On 3 4:45PM ; [facility] [Z11.1 - Encounter for miguel angel marcus for respiratory tuberculosis] visit for: screening for pulmonary tuberculosis Open Access - Established with Juanita Lewis PA-C 11/29/2022 Last Documented On 3 4:45PM ; [facility] [Z68.42 - Body mass index [B MS] 45.0-49.9, adult] assessment of body mass index Open Access - Established with Juanita Mandychip PA-C 11/29/2022 Last Documented On 3 4:45PM ; [facility] Encounter for Immunization Open Access - Established with Juanita Barbaratendomaico PA-C 11/29/2022 Last Documented On 3 4:45PM ; [facility] Prediabetes Open Access - Established with Harjinder Jimeneztendomaico PA-C 11/29/2022 Last Documented On 3 4:45PM ; [facility] [Z68.42 - Body mass index [B MS] 45.0-49.9, adult] assessment of body mass index Open Access - Established with Juanita Barbaratendomaico PA-C 11/05/2022 Last Documented On 3 12:38PM ; [facility] Acute serous otitis media of left ear Open Access - Established with Juanita Barbaratendorf PA-C 11/05/2022 Last Documented On 3 12:38PM ; [facility] [J02.9 - Acute pharyngitis, unspecified] acute pharyngitis Open Access - Established with Kb Pelaez CNP 10/17/2022 Last Documented On 3 12:51PM ; [facility] [J11.1 - Influenza due to un identified influenza virus with other respiratory manifestations] influenza with URI Open Access - Established with Kb Pelaez CNP 10/17/2022 Last Documented On 3 12:51PM ; [facility] [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) Open Access - Established with Kb Pelaez CNP 10/17/2022 Last Documented On 3 12:51PM ; [facility] [R35.0 - Frequency of mictur ition] urinary frequency Open Access - Established with Kb Pelaez CNP 10/17/2022 Last Documented On 3 12:51PM ; [facility] [Z68.42 - Body mass index [B MS] 45.0-49.9, adult] assessment of body mass index was 47.2 kg/m2 Open Access - Established with Kb Pelaez JAROD 10/17/2022 Last Documented On 3 12:51PM ; [facility] Intervention and counseling on cessation of tobacco use, 3-10 minutes Discussed medication and nicotine replacement for tobacco cessation Open Access - Established with Kb Pelaez JAROD 10/17/2022 Last Documented On 3 12:51PM ; [facility] Nicotine dependence Open Access - Established wi th Kb Pelaez JAROD 10/17/2022 Last Documented On 3 12:51PM ; [facility] Venipuncture was performed Open Access - Established with Kb Pelaez JAROD 10/17/2022 Last Documented On 3 12:51PM ; [facility] [F17.200 - Nicotine dependen ce, unspecified, uncomplicated] nicotine dependence uncomplicated Medical Established Patient with Juanita Lewis PA-C 10/09/2022 Last Documented On 3 2:42PM ; [facility] [Z68.42 - Body mass index [B MS] 45.0-49.9, adult] assessment of body mass index Medical Established Patient with Juanita Mandydomaico PA-C 10/09/2022 Last Documented On 3 2:42PM ; [facility] Classic migraine (with aura) with intractable migraine with status migrainosus Medical Established Patient with Juanita Mandydorf PA-C 10/09/2022 Last Documented On 3 2:42PM ; [facility] Iron deficiency anemia Medical Establish ed Patient with Juanita Barbaratendorf PA-C 10/09/2022 Last Documented On 3 2:42PM ; [facility] Prediabetes Medical Established Patient with Juanita Mandydorf PA-C 10/09/2022 Last Documented On 3 2:42PM ; [facility] [R73.03 - Prediabetes] prediabetes Open Access - Established with Juanita Lewis PA-C 09/18/2022 Last Documented On 3 2:31PM ; [facility] [Z68.42 - Body mass index [B MS] 45.0-49.9, adult] assessment of body mass index Open Access - Established with Juanita Hattendorf PA-C 09/18/2022 Last Documented On 3 2:31PM ; [facility] Classic migraine (with aura) with intractable migraine with status migrainosus Open Access - Established with Juanita Hattendorf PA-C 09/18/2022 Last Documented On 3 2:31PM ; [facility] [S80.12XD - Contusion of lef t lower leg, subsequent encounter] contusion with intact skin surface of left anterior lower leg Medical Established Patient with Juanita Hattendorf PA-C 05/27/2022 Last Documented On 3 4:00PM ; [facility] [Z68.42 - Body mass index [B MS] 45.0-49.9, adult] assessment of body mass index Medical Established Patient with Juanita Hattendorf PA-C 05/27/2022 Last Documented On 3 4:00PM ; [facility] Pain in lower leg Medical Established Patient wi th Juanita Hatnadeemdorf PA-C 05/27/2022 Last Documented On 3 4:00PM ; [facility] Iron deficiency anemia Chart Update with Juanita Hattendorf PA-C 05/21/2022 Last Documented On 3 4:12PM ; [facility] [E55.9 - Vitamin D deficienc y, unspecified] vitamin D deficiency Open Access - Established with Juanita Hattendorf PA-C 05/17/2022 Last Documented On 3 3:44PM ; [facility] [Z68.42 - Body mass index [B MS] 45.0-49.9, adult] assessment of body mass index Open Access - Established with Juanita Hattendorf PA-C 05/17/2022 Last Documented On 3 3:44PM ; [facility] Iron deficiency anemia Open Access - Est ablished with Juanita Hattendorf PA-C 05/17/2022 Last Documented On 3 3:44PM ; [facility] Organic sleep apnea Open Access - Established wi Juanita Lewis PA-C 05/17/2022 Last Documented On 3 3:44PM ; [facility] Primary snoring Open Access - Established with Harjinder Lewis PA-C 05/17/2022 Last Documented On 3 3:44PM ; [facility] Bipolar I disorder Established Patient with Chavez Martinez MANAGER [employer] MARKETING 04/29/2022 Last Documented On 3 11:36AM ; [facility] Nicotine dependence Established Patient with Odalys Martinez MANAGER [employer] MARKETING 04/29/2022 Last Documented On 3 11:36AM ; [facility] [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) Open Access New Patient with Juanita Lewsi PA-C 04/29/2022 Last Documented On 3 1:03PM ; [facility] [Z00.01 - Encounter for gene [facility] adult medical examination with abnormal findings] routine history and physical Open Access New Patient with Juanita Lewis PA-C 04/29/2022 Last Documented On 3 1:03PM ; [facility] [Z68.42 - Body mass index [B MS] 45.0-49.9, adult] assessment of body mass index Open Access New Patient with Juanita Lewis PA-C 04/29/2022 Last Documented On 3 1:03PM ; [facility] Diabetes Risk Test Score was five score 04/29/2022 Open Access New Patient with Juanita Lewis PA-C 04/29/2022 Last Documented On 3 1:03PM ; [facility] Recurrent pharyngitis streptococcus Open Access New Patient with Juanita Guanrf PA-C 04/29/2022 Last Documented On 3 1:03PM ; [facility] Screening for Hep C Open Access New Patient with Juanita Lewis PA-C 04/29/2022 Last Documented On 3 1:03PM ; [facility] Screening for HIV Open Access New Patient with Harjinder Lewis PA-C 04/29/2022 Last Documented On 3 1:03PM ; [facility] Work Phone: [phone] 323-607404-29-2024 Progress note* Progress note Date Encounter Last Documented by 06/16/2023 Open Access - Established Last d ocumented on 06/17/2023; 11:29 AM, Jelani Harris CNP; [facility] Active Problems & Conditions - J45.31 - Asthma Mild Persistent with Exacerbation - F31.9 - Bipolar I Disorder - G43.111 - Classic Migraine with Aura with Intractable Migraine with Status Migrainosus - Z87.892 - History of Anaphylactoid Drug Reaction - D50.9 - Iron Deficiency Anemia - M79.662 - Limb Pain Lower Leg - F17.200 - Nicotine Dependence Continuous - R73.03 - Prediabetes - N96 - Recurrent Loss (Non-gravid) Chief Complaint The Chief Complaint is: Patient here for S form to be fllied out. Referred Here Not referred by urgent care clinic and not the emergency room. No prior encounters. - Data to be reviewed: no clinical lab tests History of Present Illness Susy Diaz is a 27 year old female. 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 Current Medication - Acetaminophen 500 MG Oral Tablet 1 tab po tid prn pain, 14 days, 0 refills - Albuterol Sulfate HFA 108 (90 Base) MCG/ACT Inhalation Aerosol Solution 25 days, 0 refills - [facility] Fish Oil 1200 MG Oral Capsule 2 cap po qd, 30 days, 2 refills - [facility] Vitamin C 500 MG Oral Tablet 1 tab po qd, 30 days, 11 refills - Effexor XR 75 MG Oral Capsule, extended-release 24 hour Capsule Extended Release 24 Hour 1 cap po qd, 30 days, 0 refills - EpiPen 2-Cordelia 0.3 MG/0.3ML Injection Solution Auto-injector inject into thigh at onset of allergic reaction, 30 days, 0 refills - EQ Nicotine 14 MG/24HR Transdermal Patch 24 Hour apply to affected area once per day in the morning, remove at nighttime, 30 days, 0 refills - Ferrous Sulfate 325 (65 Fe) MG Oral Tablet 2 tab po qod, 30 days, 5 refills - Ibuprofen 800 MG Oral Tablet 1 tab po tid prn pain, 30 days, 2 refills - OneTouch Ultra In Vitro Strip USE TO CHECK BLOOD SUGARS ONCE DAILY, 30 days, 2 refills - OneTouch UltraSoft 2 Lancets Miscellaneous use to check blood sugar once per day, 30 days, 2 refills - OXcarbazepine 300 MG Oral Tablet 1 tab po bid, 30 days, 0 refills - Prazosin HCl 1 MG Oral Capsule 1 cap po qhs, 30 days, 0 refills - Sleep Aid (Doxylamine) 25 MG Oral Tablet 1 tab po qhs, 30 days, 5 refills - SUMAtriptan Succinate 50 MG Oral Tablet 1 tab at the onset of migraine, repeat in 2 hours if needed. max 2/day, 30 days, 2 refills - Symbicort 160-4.5 MCG/ACT Inhalation Aerosol 2 inhalations by mouth bid, rinse mouth thoroughly after use, 30 days, 5 refills - Topamax 25 MG Oral Tablet 1 tab po qhs, 30 days, 5 refills - Vitamin D (Ergocalciferol) 71574 UNIT Oral Capsule 0 days, 0 refills Past Medical/Surgical History Other: No previous suicide attempt Reported: No Safety Measures. Medical: No previous hospitalizations. Immunization History: Recent immunization for flu. : Not planning a in the next year. Diagnoses: Systemic hypertension. Asthma. Psychiatric disorders Surgical: - Extraction of wisdom tooth Social History Environmental Exposure: No secondhand cigarette smoke exposure. Behavioral: Not a current tobacco user. Tobacco use: Using electronic cigarettes/vaping. Alcohol: A social drinker. Drug Use: Not using drugs denied by patient. Sexual: Sexually active, sexual orientation Straight (not lesbian or ferrara), and gender identity Female. Allergies - cabbage Reaction: Anaphylaxis (Severe) - Dove Reaction: Skin Rashes / Eruption of skin (Moderate) - Codeine - grape fruit Reaction: Anaphylaxis (Severe) - Lactose intolerance Reaction: Nausea (Severe) - metFORMIN HCl - Robaxin Reaction: Skin Rashes / Eruption of skin (Severe) - tomatoes Reaction: Anaphylaxis (Severe) - Toradol Family History Paternal: Systemic hypertension Type 1 diabetes mellitus Psychiatric disorders Maternal: Systemic hypertension Type 2 diabetes mellitus Psychiatric disorders Oncologic disorder Fraternal: Psychiatric disorders Sororal: Psychiatric disorders Review Of Systems Systemic: No fever and no chills. Head: No headache, no facial pain, no sinus pain, and no sinus pressure. Neck: No swollen glands in the neck. Eyes: No eyelid/eyebrow symptoms, no irritation of the eyes, and no discharge from the eyes. Otolaryngeal: No ear symptoms, no throat symptoms, and no oral cavity symptoms. Cardiovascular: No chest pain or discomfort and no palpitations. Pulmonary: No pulmonary symptoms, no cough, and no wheezing. Gastrointestinal: No dysphagia, no nausea, no vomiting, and no abdominal pain. Genitourinary: No hematuria, urine odor normal, no change in urinary frequency, and no feelings of urinary urgency. Musculoskeletal: No musculoskeletal symptoms. Neurological: No neurological symptoms, no dizziness, no lightheadedness, and no fainting. Psychological: No psychological symptoms. Skin: No skin symptoms, no dry skin, no pruritus, no skin changes, and no localized skin discoloration. Physical Findings - Vitals taken 06/16/2023 01:23 pm BP-Sitting R107/73 mmHg BP Cuff SizeRegular Pulse Rate-Vtxhsrh98 bpm Pulse RhythmRegular Temp-Ablgkibz33 F Bvtpic35 in Bfziqu692 lbs Body Mass Index45.2 kg/m2 Body Surface Area2.3 m2 Oxygen Rnhggmwyds35 % O2 DeviceNone (Room Air) [id number] % Vital Signs: - Systolic blood pressure < 130 mmHg. - Diastolic Blood Pressure < 80 mmHg. General Appearance: - In no acute distress. Eyes: General/bilateral: Extraocular Movements: - Normal. Pupils: - PERRLA. External: - Eye showed no abnormalities. - No discharge from the conjunctiva. Ears: General/bilateral: External Auditory Canal: - Normal. Nose: General/bilateral: Discharge: - No nasal discharge. External Deformities: - No external nose deformities. Cavity: - Nasal mucosa normal. Oral Cavity: Teeth: - Dental no abnormalities. Pharynx: Oropharynx: - Normal. Lymph Nodes: - Normal. Lungs: - Clear to auscultation. - No wheezing was heard. Cardiovascular: Heart Rate And Rhythm: - Normal. Heart Sounds: - Normal. Murmurs: - No murmurs were heard. Edema: - Not present. Abdomen: Visual Inspection: - Abdomen was normal on visual inspection. Palpation: - Abdominal non-tender. Spleen: - Not enlarged. Skin: - Color and pigmentation were normal. - No skin lesions. Tests Laboratory-based Chemistry: Other Laboratory Tests: Screening for sexually transmitted infections was not performed. Assessment - Z00.00 - Encounter for general adult medical examination without abnormal findings - Z68.42 - Body mass index [BMI] 45.0-49.9, adult Vaccinations - Received dose of Reported: Patient has received the COVID Vaccine Counseling/Education - Does not want to stop using current contraception - No not wishing to stop using electronic cigarettes/vaping - Discussed nutritional needs teach healthy choices including fruits and vegetables - Patient education about a proper diet - Not requesting contraception - Discussed concerns about exercise: promote physical activity Plan StartCited- Bipolar disorder, unspecified Effexor XR 75 MG capsule 1 cap po qd, 30 days, 2 refills Prazosin HCl 1 MG capsule 1 cap po qhs, 30 days, 2 refills OXcarbazepine 300 MG tablet 1 tab po bid, 30 days, 2 refills EndCited StartCited- Migraine with aura, intractable, with status migrainosus Topamax 25 MG tablet 1 tab po qhs, 30 days, 5 refills SUMAtriptan Succinate 50 MG tablet 1 tab at the onset of migraine, repeat in 2 hours if needed. max 2/day, 30 days, 2 refills EndCited Health Reminders - Adult Well Visit 18 years and older satisfied 06/16/2023. - Assess BMI satisfied 06/16/2023. - Assess Tobacco Use satisfied 06/16/2023. - Follow Up Plan BMI Management satisfied 06/16/2023. User Defined 1 Not planning a in the next year. [id number] History of Present illness Narrative* Kirsten Blandon, WIL[facility] COOPER - 04/30/2023 7:00 PM EDT Subjective: Patient ID: Susy Diaz is a 27 y.o. female. Chief Complaint Patient presents with Allergic Reaction Pt states she is allergic to shellfish and was exposed today at 1800 - she is having facial swelling and tingling. She's not having trouble breathing. She hasn't taken anything. 27-year-old female reports walking past someone eating seafood at her job 2 hours ago Feels like her face is starting to swell Reports being allergic to sea food, has an EpiPen but did not use it Denies feeling like throat is closing Denies nausea, vomiting, wheezing Allergic Reaction This is a new problem. The current episode started today. The problem occurs constantly. The problem is unchanged. The patient was exposed to shellfish. The exposure occurred at Work. Associated symptoms include chest pressure. Pertinent negatives include no coughing, diarrhea, eye itching, eye redness, globus sensation, itching, rash, stridor, trouble swallowing, vomiting or wheezing. Swelling is present on the face. Past treatments include diphenhydramine. The treatment provided mild relief. Her past medical history is significant for food allergies. The following portions of the patient's history were reviewed and updated as appropriate: allergies, current medications, past family history, past medical history, past social history, past surgicalhistory and problem list. Review of Systems HENT: Negative for trouble swallowing. Eyes: Negative for redness and itching. Respiratory: Negative for cough, chest tightness, wheezing and stridor. Gastrointestinal: Negative for diarrhea, nausea and vomiting. Skin: Negative for itching and rash. Allergic/Immunologic: Positive for food allergies. Past Medical History: Diagnosis Date Anxiety Bipolar disorder ([facility]) Depression Headache Multiple personality disorder ([facility] [place]) Panic disorder PCOS (polycystic ovarian syndrome) PTSD (post-traumatic stress disorder) Past Surgical History: Procedure Laterality Date SHOULDER SURGERY WISDOM TOOTH EXTRACTION Social History Tobacco Use Smoking status: Every Day Types: Vaping/E-cigarettes Smokeless tobacco: Never Tobacco comments: refused counseling Vaping Use Vaping Use: Every day Substances: Nicotine, Flavoring Devices: Disposable Substance Use Topics Alcohol use: Yes Comment: Occassionally Drug use: Yes Types: Marijuana Family History Adopted: Yes Allergies Allergen Reactions Egg Derived Anaphylaxis Metformin Hives and Anaphylaxis Tomato Anaphylaxis Dove Flavor Dermatitis Grapefruit Hives Ketorolac Tromethamine Hives Nutritional Supplements Hives Shellfish Derived Facial Swelling Cabbage Hives Codeine Rash Flavoring Agent Hives and Rash And Dove flavoring agent. Latex Rash Robaxin [Methocarbamol] Rash Current Outpatient Medications on File Prior to Visit Medication Sig Dispense Refill albuterol (PROVENTIL HFA;VENTOLIN HFA) 90 mcg/actuation inhaler Inhale 1-2 puffs every 6 (six) hours as needed for wheezing. 18 g 0 albuterol (PROVENTIL,VENTOLIN) 2.5 mg /3 mL (0.083 %) nebulizer solution Inhale 3 mL (2.5 mg total)by nebulization every 6 (six) hours as needed for wheezing. 75 mL 0 blood sugar diagnostic strip 1 strip by other route as needed for high blood sugar. 100 strip 3 blood-glucose meter kit Use as instructed 1 each 0 etonogestreL (NEXPLANON) 68 mg implant 1 each (68 mg total) by subdermal route once. prazosin (MINIPRESS) 2 mg capsule Take 1 capsule (2 mg total) by mouth nightly. SYMBICORT 160-4.5 mcg/actuation inhaler INHALE TWO puffs BY MOUTH TWICE DAILY. RINSE MOUTH AFTER USE. hdtvjdorqlkyhwr-desyjoxrr-FX 2-30-10 mg/5 mL syrup Take 10 mL by mouth 4 (four) times a day as needed for allergies, cough or congestion. (Patient not taking: Reported on 04/30/2023) 120 mL 0 gabapentin (NEURONTIN) 100 mg capsule Take 1 capsule (100 mg total) by mouth in the morning and 1 capsule (100 mg total) before bedtime. OXcarbazepine (TRILEPTAL) 600 mg tablet Take 1 tablet (600 mg total) by mouth in the morning and 1 tablet (600 mg total) before bedtime. SE-AMBER 19 CHEWABLE 29 mg iron- 1 mg tablet,chewable CHEW AND SWALLOW 1 TABLET ONCE DAILY (Patientnot taking: Reported on 01/31/2023) 90 tablet 7 sertraline (ZOLOFT) 50 mg tablet Take 1 tablet (50 mg total) by mouth in the morning. traZODone (DESYREL) 75 mg tablet Take 1 split tablet (75 mg total) by mouth nightly. (Patient not taking: Reported on 04/30/2023) No current facility-administered medications on file prior to visit. Objective: Vitals: 04/30/23 194 BP: 126/61 BP Site: Left Forearm BP Postition: Sitting BP CUFF SIZE: L (13-17 inches) Pulse: 92 Resp: 14 Temp: 36.9 C (98.4 F) TempSrc: Temporal SpO2: 100% Weight: 128.8 kg (284 lb) Height: 165.1 cm (5' 5 ) Patient's last menstrual period was 04/26/2023. The patient is not currently . Body mass index is 47.26 kg/m . Facility age limit for growth %bijal is 20 years. Physical Exam Vitals and nursing note reviewed. Constitutional: General: She is awake. She is not in acute distress. Appearance: Normal appearance. She is well-developed. She is not ill-appearing, toxic-appearing or diaphoretic. HENT: Head: Normocephalic. Comments: May be face is very mildly puffy; patient is obese and hard to distinguish Mouth/Throat: Mouth: Mucous membranes are moist. No oral lesions or angioedema. Dentition: No gingival swelling. Pharynx: No pharyngeal swelling, oropharyngeal exudate, posterior oropharyngeal erythema or uvula swelling. Comments: No angioedema noted Cardiovascular: Rate and Rhythm: Normal rate and regular rhythm. Pulses: Normal pulses. Heart sounds: Normal heart sounds, S1 normal and S2 normal. No murmur heard. No friction rub. No gallop. Pulmonary: Effort: Pulmonary effort is normal. No tachypnea, accessory muscle usage or respiratory distress. Breath sounds: Normal breath sounds. No decreased breath sounds, wheezing, rhonchi or rales. Lymphadenopathy: Cervical: No cervical adenopathy. Skin: General: Skin is warm and dry. Neurological: Mental Status: She is alert and oriented to person, place, and time. Psychiatric: Attention and Perception: Attention and perception normal. Mood and Affect: Mood normal. Speech: Speech normal. Behavior: Behavior normal. Behavior is cooperative. Thought Content: Thought content normal. Judgment: Judgment normal. Assessment/Plan: Discussed allergic reaction Decadron injection given here Take Claritin daily Pepcid For next 10 days Pepcid twice a day x5 days Any difficulty breathing please go to ER Susy was seen today for allergic reaction. Diagnoses and all orders for this visit: Allergic reaction to seafood - dexAMETHasone (DECADRON) injection 10 mg - loratadine (CLARITIN) 10 mg tablet; Take 1 tablet (10 mg total) by mouth daily as needed for allergies. - famotidine (PEPCID) 20 mg tablet; Take 1 tablet (20 mg total) by mouth in the morning and 1 tablet (20 mg total) before bedtime. Do all this for 5 days. Orders Placed or Reconciled This Encounter Medications etonogestreL (NEXPLANON) 68 mg implant Si each (68 mg total) by subdermal route once. dexAMETHasone (DECADRON) injection 10 mg Freq: Once loratadine (CLARITIN) 10 mg tablet Sig: Take 1 tablet (10 mg total) by mouth daily as needed for allergies. Dispense: 10 tablet Refill: 0 famotidine (PEPCID) 20 mg tablet Sig: Take 1 tablet (20 mg total) by mouth in the morning and 1 tablet (20 mg total) before bedtime.Do all this for 5 days. Dispense: 10 tablet Refill: 0 Patient Instructions Any difficulty in breathing go to ER Use EpiPen if symptoms worsened This note is dictated with the use of M*Modal.Please note that this dictation was completed with computer voice recognition software. Quite often unanticipated grammatical, syntax, homophones, and other interpretive errors are inadvertently transcribed by the computer software. Please disregard these errors. Please excuse any errors that have escaped final proofreading. I personally discussed test results with patient/parent. Education handout and discharge papers given. Paperwork explained. Denies questions or concerns. Discussed that follow up care is usually required after a visit to the Urgent care. It is your responsibility to contact your primary care provider for follow up. If symptoms are not improving, worsening, or concerning symptoms of illness develop, follow up withyour primary care provider or go to the nearest Emergency Department for further care immediately. CONNOR Mayberry 04/30/232005 documented in this encounterGuernsey Memorial HospitalWatt & Company [id number] Instructions* Patient Instructions* CONNOR Mayberry - 04/30/2023 7:00 PM EDT Any difficulty in breathing go to ER Use EpiPen if symptoms worsened * Attachments The following attachments cannot be sent through Care Everywhere. * Allergic Reaction ED (Austrian) documented in this encounterR[facility] CenterGetAutoBids [id number] Progress note* Progress note Date Encounter Last Documented by 04/23/2023 Established Patient Last docu mented on 04/23/2023; 12:14 PM, Odalys SMITH; [facility] Active Problems & Conditions - J45.31 - Asthma Mild Persistent with Exacerbation - F31.9 - Bipolar I Disorder - G43.111 - Classic Migraine with Aura with Intractable Migraine with Status Migrainosus - Z87.892 - History of Anaphylactoid Drug Reaction - D50.9 - Iron Deficiency Anemia - M79.662 - Limb Pain Lower Leg - F17.200 - Nicotine Dependence Continuous - R73.03 - Prediabetes - N96 - Recurrent Loss (Non-gravid) Chief Complaint The Chief Complaint is: Follow up related to mood and medications. History of Present Illness Susy Diaz is a 27 year old female. - Anxiety with persistent worry - With anticipation of misfortune to self or others - With fear of losing self-control - Relieved by medication - Depression as a chronic condition - Alternating with periods of elation - Moderate - Difficulty falling asleep Patient reports significant improvement in her mood since restarting Effexor, noting that she feels anxiety has improved, depression has improved. Patient reports that she has been having trouble sleeping the past week, noting that it takes her 2-5 hours to fall asleep. Patient reports has had the same sleep routine for years, which is get ready for bed, and then watch TV, but sets a sleep timer and is usually asleep within 30 minutes. 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 Patient is allergic to melatonin, and feels that trazadone makes her too groggy Current Medication - Acetaminophen 500 MG Oral Tablet 1 tab po tid prn pain, 14 days, 0 refills - Albuterol Sulfate HFA 108 (90 Base) MCG/ACT Inhalation Aerosol Solution Aerosol, solution 25 days, 0 refills - [facility] Fish Oil 1200 MG Oral Capsule Capsule, conventional 2 cap po qd, 30 days, 2 refills - [facility] Vitamin C 500 MG Oral Tablet 1 tab po qd, 30 days, 11 refills - Effexor XR 75 MG Oral Capsule, extended-release 24 hour 1 cap po qd, 30 days, 0 refills - EpiPen 2-Cordelia 0.3 MG/0.3ML Injection Solution Auto-injector inject into thigh at onset of allergic reaction, 30 days, 0 refills - EQ Nicotine 14 MG/24HR Transdermal Patch 24 Hour apply to affected area once per day in the morning, remove at nighttime, 30 days, 0 refills - Ferrous Sulfate 325 (65 Fe) MG Oral Tablet 2 tab po qod, 30 days, 5 refills - Ibuprofen 800 MG Oral Tablet 1 tab po tid prn pain, 30 days, 2 refills - OneTouch Ultra In Vitro Strip USE TO CHECK BLOOD SUGARS ONCE DAILY, 30 days, 2 refills - OneTouch UltraSoft 2 Lancets Miscellaneous Miscellaneous (not specified) use to check blood sugar once per day, 30 days, 2 refills - OXcarbazepine 300 MG Oral Tablet 1 tab po bid, 30 days, 0 refills - Prazosin HCl 1 MG Oral Capsule Capsule, conventional 1 cap po qhs, 30 days, 0 refills - Sleep Aid (Doxylamine) 25 MG Oral Tablet 1 tab po qhs, 30 days, 5 refills - SUMAtriptan Succinate 50 MG Oral Tablet 1 tab at the onset of migraine, repeat in 2 hours if needed. max 2/day, 30 days, 2 refills - SUMAtriptan Succinate 50 MG Oral Tablet 1 tab at the onset of migraine, repeat in 2 hours if needed. max 2/day, 30 days, 2 refills - Symbicort 160-4.5 MCG/ACT Inhalation Aerosol 2 inhalations by mouth bid, rinse mouth thoroughly after use, 30 days, 5 refills - Topamax 25 MG Oral Tablet 1 tab po qhs, 30 days, 5 refills - Vitamin D (Ergocalciferol) 84762 UNIT Oral Capsule Capsule, conventional 0 days, 0 refills Past Medical/Surgical History Other: No previous suicide attempt Reported: Medical: No previous hospitalizations. Immunization History: Recent immunization for flu. : Not planning a in the next year. Diagnoses: Systemic hypertension. Asthma. Psychiatric disorders Surgical: - Extraction of wisdom tooth Social History Environmental Exposure: No secondhand cigarette smoke exposure. Behavioral: Not a current tobacco user. Tobacco use: Using electronic cigarettes/vaping. Alcohol: Not using alcohol. Drug Use: Not using drugs. Housing And Economic Circumstances: Lives alone. 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 Sexual: Not sexually active. Gender identity Female. Allergies - cabbage Reaction: Anaphylaxis (Severe) - Dove Reaction: Skin Rashes / Eruption of skin (Moderate) - Codeine - grape fruit Reaction: Anaphylaxis (Severe) - Lactose intolerance Reaction: Nausea (Severe) - metFORMIN HCl - Robaxin Reaction: Skin Rashes / Eruption of skin (Severe) - tomatoes Reaction: Anaphylaxis (Severe) - Toradol Family History Paternal: Systemic hypertension Type 1 diabetes mellitus Psychiatric disorders Maternal: Systemic hypertension Type 2 diabetes mellitus Psychiatric disorders Oncologic disorder Fraternal: Psychiatric disorders Sororal: Psychiatric disorders Physical Findings General Appearance: - Normal Appearance. Neurological: - Cognitive Functions was Normal. - Oriented to time, place, and person. Speech: - Is Normal. Psychiatric: - Attitude Open. - Mood was calm. Demonstrated Behavior: - Eye Contact Appropriate. Thought Content: - Revealed no impairment. - No suicidal ideation. - No Passive thoughts of . - No suicidal plans. - No suicidal intent. - No homicidal ideations. - No homicidal plans. - No homicidal intent. Assessment - Nicotine dependence [F17.200 - Nicotine dependence, unspecified, uncomplicated] - Bipolar disorder NOS [F31.9 - Bipolar disorder, unspecified] Therapy - Brief solution-focused therapy. - Adherent with medications. - Collaborated with patient and provider: Counseling/Education BHP and PA discussed patient's mood and overal functioning, noting that patient reports feeling that medication has been helpful, feels that depression and anxiety have decreased. BHP and PA discussed patient's concerns related to sleep, discussed options to treat sleep, noting that patient is allergic to melatonin and feels that trazadone makes her too groggy, agreed to trial of doxylamine. Discussed sleep hygiene as well. Plan Follow up as scheduled. Health Reminders - Assess Tobacco Use satisfied 04/23/2023. User Defined 1 Do you feel stress - tense, restless, nervous, or anxious, or unable to sleep at night because your mind is troubled all the time - these days? A little bit. [facility]03-06-2024 Progress note* Progress note Date Encounter Last Documented by 04/23/2023 Medical Established Patient Last documented on 04/23/2023; 1:33 PM, Juanita Lewis PA-C; [facility] Active Problems & Conditions - Asthma Mild Persistent with Exacerbation - Bipolar I Disorder - Classic Migraine with Aura with Intractable Migraine with Status Migrainosus - History of Anaphylactoid Drug Reaction - Iron Deficiency Anemia - Limb Pain Lower Leg - Nicotine Dependence Continuous - Prediabetes - Recurrent Loss (Non-gravid) Chief Complaint The Chief Complaint is: Patient here today for medication follow up. Referred Here Not referred by urgent care clinic and not the emergency room. No prior encounters. - Data to be reviewed: no clinical lab tests History of Present Illness Susy Diza is a 27 year old female. - Allergy list reviewed - Problem list reviewed - Reviewed Medications - Medication list reviewed - Date of last menstruation 03/25/2023 - Date of last menstruation 03/26/2023 - test - would not like a test - Depression - Initial insomnia - Craving nicotine - No high irritability - No nightmares - No racing thoughts - No impulsive behavior resulting in careless errors or omissions Susy is a 27 yr old female presenting to the office for a mood check. She reports continued difficulty falling asleep, and intermittent appetite. She reports overall feeling much better - she reports less anxiety, depression, resolution of nightmares. 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 She falls asleep with the tv on at nighttime. She has taken trazodone in the past for sleep but it caused a sleep hangover. Current Medication - Acetaminophen 500 MG Oral Tablet 1 tab po tid prn pain, 14 days, 0 refills - Albuterol Sulfate HFA 108 (90 Base) MCG/ACT Inhalation Aerosol Solution Aerosol, solution 25 days, 0 refills - [facility] Fish Oil 1200 MG Oral Capsule Capsule, conventional 2 cap po qd, 30 days, 2 refills - [facility] Vitamin C 500 MG Oral Tablet 1 tab po qd, 30 days, 11 refills - EpiPen 2-Cordelia 0.3 MG/0.3ML Injection Solution Auto-injector inject into thigh at onset of allergic reaction, 30 days, 0 refills - EQ Nicotine 14 MG/24HR Transdermal Patch 24 Hour apply to affected area once per day in the morning, remove at nighttime, 30 days, 0 refills - Ferrous Sulfate 325 (65 Fe) MG Oral Tablet 2 tab po qod, 30 days, 5 refills - Ibuprofen 800 MG Oral Tablet 1 tab po tid prn pain, 30 days, 2 refills - OneTouch Ultra In Vitro Strip USE TO CHECK BLOOD SUGARS ONCE DAILY, 30 days, 2 refills - OneTouch UltraSoft 2 Lancets Miscellaneous Miscellaneous (not specified) use to check blood sugar once per day, 30 days, 2 refills - OXcarbazepine 300 MG Oral Tablet 1 tab po bid, 30 days, 0 refills - Prazosin HCl 1 MG Oral Capsule Capsule, conventional 1 cap po qhs, 30 days, 0 refills - SUMAtriptan Succinate 50 MG Oral Tablet 1 tab at the onset of migraine, repeat in 2 hours if needed. max 2/day, 30 days, 2 refills - Symbicort 160-4.5 MCG/ACT Inhalation Aerosol 2 inhalations by mouth bid, rinse mouth thoroughly after use, 30 days, 5 refills - Topamax 25 MG Oral Tablet 1 tab po qhs, 30 days, 5 refills - Vitamin D (Ergocalciferol) 08051 UNIT Oral Capsule Capsule, conventional 0 days, 0 refills Past Medical/Surgical History Other: No previous suicide attempt Reported: No Safety Measures. Medical: No previous hospitalizations. Immunization History: Recent immunization for flu. : Not planning a in the next year. Diagnoses: Systemic hypertension. Asthma. Psychiatric disorders Surgical: - Extraction of wisdom tooth Social History Environmental Exposure: Secondhand cigarette smoke exposure. Behavioral: Not a current tobacco user. Tobacco use: Using electronic cigarettes/vaping. Alcohol: A social drinker. Drug Use: Using marijuana. Sexual: Sexually active, sexual orientation Straight (not lesbian or ferrara), and gender identity Female. Allergies - cabbage Reaction: Anaphylaxis (Severe) - Dove Reaction: Skin Rashes / Eruption of skin (Moderate) - Codeine - grape fruit Reaction: Anaphylaxis (Severe) - Lactose intolerance Reaction: Nausea (Severe) - metFORMIN HCl - Robaxin Reaction: Skin Rashes / Eruption of skin (Severe) - tomatoes Reaction: Anaphylaxis (Severe) - Toradol Family History Paternal: Systemic hypertension Type 1 diabetes mellitus Psychiatric disorders Maternal: Systemic hypertension Type 2 diabetes mellitus Psychiatric disorders Oncologic disorder Fraternal: Psychiatric disorders Sororal: Psychiatric disorders Review Of Systems Systemic: No systemic symptoms. Head: No head symptoms. Neck: No neck symptoms. Eyes: No eye symptoms. Otolaryngeal: No ear symptoms, no nasal symptoms, and no throat symptoms. Cardiovascular: No cardiovascular symptoms and no palpitations. Pulmonary: No dyspnea, no cough, and no wheezing. Gastrointestinal: No gastrointestinal symptoms. Genitourinary: No genitourinary symptoms. Musculoskeletal: No musculoskeletal symptoms. Neurological: No neurological symptoms. Psychological: No high irritability and no depression. Initial insomnia. No nightmares. No racing thoughts, no buying sprees, not craving nicotine, and no impulsive behavior resulting in careless errors or omissions. Skin: No skin symptoms. Physical Findings - Vitals taken 04/23/2023 10:53 am BP-Sitting R102/61 mmHg BP Cuff SizeLarge Pulse RhythmRegular Temp-Tngyygtw11.5 F Bxkcwz73 in Auienu517 lbs 6.4 oz Body Mass Index45.3 kg/m2 Body Surface Area2.3 m2 O2 DeviceNone (Room Air) EcD110 % Vital Signs: - Systolic blood pressure < 130 mmHg. - Diastolic Blood Pressure < 80 mmHg. General Appearance: - Awake. - Alert. - Well developed. - Well nourished. - In no acute distress. Head: Appearance: - Head normocephalic. Eyes: General/bilateral: Extraocular Movements: - Normal. Sclera: - Normal. Nose: General/bilateral: Discharge: - No nasal discharge. External Deformities: - No external nose deformities. Oral Cavity: Lips: - Showed no abnormalities. Lymph Nodes: - No adenopathy. Lungs: - Respiration rhythm and depth was normal. - Clear to auscultation. Cardiovascular: Heart Rate And Rhythm: - Normal. Heart Sounds: - Normal. Murmurs: - No murmurs were heard. Back: - No costovertebral angle tenderness. Abdomen: Auscultation: - Bowel sounds were normal. Palpation: - Abdominal non-tender. Musculoskeletal System: General/bilateral: - Normal movement of all extremities. Neurological: - No confusion was observed. - Oriented to time, place, and person. Speech: - Normal. Balance: - Normal. Gait And Stance: - Normal. Psychiatric: - Mood was elevated. - Mood was irritable. Appearance: - Not tired. - Grooming was normal. Demonstrated Behavior: - Appropriate behavior for patient. Affect: - Showed irritability. Skin: - General appearance was normal. Tests Laboratory-based Chemistry: Other Laboratory Tests: Screening for sexually transmitted infections was not performed. Educational Testing: In the Past 4 Weeks, Asthma kept me from getting much done at work/school/work? (4 Pts) A little of the Time, During the past 4 weeks, how often have you had shortness of breath? (5 Pts) Not at all, During the past for 4 weeks, asthma symptoms woke me up at night or earlier than (5 Pts) Not at all, During the past 4 weeks, have used rescue inhaler or nebulizer medication (5 Pts) Not at all, and Asthma control during the past 4 weeks (5 Pts) Completely Controlled. Assessment - Z68.42 - Body mass index [BMI] 45.0-49.9, adult - G43.111 - Migraine with aura, intractable, with status migrainosus - F17.200 - Nicotine dependence, unspecified, uncomplicated - F31.9 - Bipolar disorder, unspecified Test Conclusions Asthma Control Test (ACT), adult total score was 24 04/23/2023. Vaccinations - Received dose of Reported: Patient has received the COVID Vaccine Counseling/Education - Does not want to stop using current contraception - Wishing to stop using electronic cigarettes/vaping - Discussed nutritional needs teach healthy choices including fruits and vegetables - Patient education about a proper diet - Not requesting contraception - Discussed concerns about exercise: promote physical activity Plan StartCited- Bipolar disorder, unspecified Effexor XR 75 MG capsule 1 cap po qd, 30 days, 0 refills EndCited StartCited- Migraine with aura, intractable, with status migrainosus SUMAtriptan Succinate 50 MG tablet 1 tab at the onset of migraine, repeat in 2 hours if needed. max 2/day, 30 days, 2 refills EndCited StartCited- Other Sleep Aid (Doxylamine) 25 MG tablet 1 tab po qhs, 30 days, 5 refills EndCited increase effexor from 37.5mg to 75mg trial of doxylamine at bedtime avoid watching TV immediately before bedtime. follow up 1 month or sooner as needed Health Reminders - ACT satisfied 04/23/2023. - Assess BMI satisfied 04/23/2023. - Assess Tobacco Use satisfied 04/23/2023. - Follow Up Plan BMI Management satisfied 04/23/2023. User Defined 1 Not planning a in the next year. [facility]03-06-2024 Instructions Includes: Instructions for all patient encounters Instructions to patient Intervention and counseling on cessation of tobacco use, 3-10 minutes Discussed medication and nicotine replacement for tobacco cessation Last Documented On 4 10:17AM ; [facility] Intervention and counseling on cessation of tobacco use, 3-10 minutes Discussed medication and nicotine replacement for tobacco cessation Last Documented On 4 10:50AM ; [facility] Intervention and counseling on cessation of tobacco use, 3-10 minutes Discussed medication and nicotine replacement for tobacco cessation Last Documented On 3 8:19PM ; [facility] Education and Decision Aids were provided during visit for: BHP and PA discussed patient 's mood and overal functioning, noting that patient reports feeling that medication has been helpful, feels that depression and anxiety have decreased. BHP and PA discussed patient's concerns related to sleep, discussed options to treat sleep, noting that patient is allergic to melatonin and feels that trazadone makes her too groggy, agreed to trial of doxylamine. Discussed sleep hygiene as well Last Documented On 4 12:13PM ; [facility] Discussed nutritional needs teach healthy choices including fruits and vegetables Last Documented On 4 11:01AM ; [facility] Patient education about a pr oper diet Last Documented On 4 11:01AM ; [facility] Discussed concerns about exe rcise : promote physical activity Last Documented On 4 11:01AM ; [facility] Not requesting contraception Last Documented On 4 11:01AM ; [facility] *[facility] offered active and supp ortive listening, normalized emotions and feelings, and processed current stressors noting patient is endorsing worsening anxiety, depression, and sleep issues. BHP and PA discussed previous medications she was on acknowledging that patient would like to restart the same medications she was on previously. BHP and PA discussed nicotine replacement with patient noting patient would like nicotine patches as they worked for her in the past. Patient was receptive during todays visit Last Documented On 4 4:46PM ; [facility] Discussed nutritional needs teach healthy choices including fruits and vegetables Last Documented On 4 9:12AM ; [facility] Patient education about a pr oper diet Last Documented On 4 9:12AM ; [facility] Discussed concerns about exe rcise : promote physical activity Last Documented On 4 9:12AM ; [facility] *[facility] offered active and supp ortive listening, normalized emotions and feelings, and processed current stressors. ~*Discussed healthy coping skills and positive supports in patient's life. ~*Discussed proper sleep hygiene skills to implement to improve sleep. ~ Last Documented On 3 9:42PM ; [facility] Discussed nutritional needs teach healthy choices including fruits and vegetables Last Documented On 3 9:40AM ; [facility] Patient education about a pr oper diet Last Documented On 3 9:40AM ; [facility] Patient education about an a sthma action plan Last Documented On 3 10:31AM ; [facility] Discussed concerns about exe rcise : promote physical activity Last Documented On 3 9:40AM ; [facility] Not requesting contraception Last Documented On 3 9:40AM ; [facility] Discussed nutritional needs teach healthy choices including fruits and vegetables Last Documented On 3 9:08AM ; [facility] Patient education about a pr oper diet Last Documented On 3 9:08AM ; [facility] Discussed concerns about exe rcise : promote physical activity Last Documented On 3 9:08AM ; [facility] Discussed nutritional needs teach healthy choices including fruits and vegetables Last Documented On 3 9:57AM ; [facility] Patient education about a pr oper diet Last Documented On 3 9:57AM ; [facility] Discussed concerns about exe rcise : promote physical activity Last Documented On 3 9:57AM ; [facility] Discussed nutritional needs teach healthy choices including fruits and vegetables Last Documented On 3 9:00AM ; [facility] Patient education about a pr oper diet Last Documented On 3 9:00AM ; [facility] Discussed concerns about exe rcise : promote physical activity Last Documented On 3 9:00AM ; [facility] Not requesting contraception Last Documented On 3 9:00AM ; [facility] Discussed nutritional needs teach healthy choices including fruits and vegetables Last Documented On 3 10:07AM ; [facility] Patient education about a pr oper diet Last Documented On 3 10:07AM ; [facility] Discussed concerns about exe rcise : promote physical activity Last Documented On 3 10:07AM ; [facility] Not requesting contraception Last Documented On 3 10:07AM ; [facility] Discussed nutritional needs teach healthy choices including fruits and vegetables Last Documented On 3 10:02AM ; [facility] Patient education about a pr oper diet Last Documented On 3 10:02AM ; [facility] Discussed concerns about exe rcise : promote physical activity Last Documented On 3 10:02AM ; [facility] Discussed nutritional needs teach healthy choices including fruits and vegetables Last Documented On 3 2:56PM ; [facility] Patient education about a pr oper diet Last Documented On 3 2:56PM ; [facility] Discussed concerns about exe rcise : promote physical activity Last Documented On 3 2:56PM ; [facility] Discussed nutritional needs teach healthy choices including fruits and vegetables Last Documented On 3 2:11PM ; [facility] Patient education about a pr oper diet Last Documented On 3 2:11PM ; [facility] Discussed concerns about exe rcise : promote physical activity Last Documented On 3 2:11PM ; [facility] BHP educated patient on HPWO model of care. BHP and PA discussed patient mood, noting that her screenings were 0, but patient has reported history of bipolar, PTSD, and anxiety and has been on medications for years. BHP and PA discussed patient decision to stop medications to initiate a , noting that patient is following with psychiatry and has good supports around her. P praised patient for 6 years substance free Last Documented On 3 11:35AM ; [facility] Discussed nutritional needs teach healthy choices including fruits and vegetables Last Documented On 3 10:53AM ; [facility] Patient education about a pr oper diet Last Documented On 3 10:53AM ; [facility] Discussed concerns about exe rcise : promote physical activity Last Documented On 3 10:53AM ; [facility] Work Phone: 1(277) 581-345703-06-2024 Instructions Includes: Instructions for all patient encounters Instructions to patient Intervention and counseling on cessation of tobacco use, 3-10 minutes Discussed medication and nicotine replacement for tobacco cessation Last Documented On 4 10:17AM ; [facility] Intervention and counseling on cessation of tobacco use, 3-10 minutes Discussed medication and nicotine replacement for tobacco cessation Last Documented On 4 10:50AM ; [facility] Intervention and counseling on cessation of tobacco use, 3-10 minutes Discussed medication and nicotine replacement for tobacco cessation Last Documented On 3 8:19PM ; [facility] Education and Decision Aids were provided during visit for: BHP and PA discussed patient 's mood and overal functioning, noting that patient reports feeling that medication has been helpful, feels that depression and anxiety have decreased. BHP and PA discussed patient's concerns related to sleep, discussed options to treat sleep, noting that patient is allergic to melatonin and feels that trazadone makes her too groggy, agreed to trial of doxylamine. Discussed sleep hygiene as well Last Documented On 4 12:13PM ; [facility] Discussed nutritional needs teach healthy choices including fruits and vegetables Last Documented On 4 11:01AM ; [facility] Patient education about a pr oper diet Last Documented On 4 11:01AM ; [facility] Discussed concerns about exe rcise : promote physical activity Last Documented On 4 11:01AM ; [facility] Not requesting contraception Last Documented On 4 11:01AM ; [facility] *P offered active and supp ortive listening, normalized emotions and feelings, and processed current stressors noting patient is endorsing worsening anxiety, depression, and sleep issues. BHP and PA discussed previous medications she was on acknowledging that patient would like to restart the same medications she was on previously. BHP and PA discussed nicotine replacement with patient noting patient would like nicotine patches as they worked for her in the past. Patient was receptive during todays visit Last Documented On 4 4:46PM ; [facility] Discussed nutritional needs teach healthy choices including fruits and vegetables Last Documented On 4 9:12AM ; [facility] Patient education about a pr oper diet Last Documented On 4 9:12AM ; [facility] Discussed concerns about exe rcise : promote physical activity Last Documented On 4 9:12AM ; [facility] *P offered active and supp ortive listening, normalized emotions and feelings, and processed current stressors. ~*Discussed healthy coping skills and positive supports in patient's life. ~*Discussed proper sleep hygiene skills to implement to improve sleep. ~ Last Documented On 3 9:42PM ; [facility] Discussed nutritional needs teach healthy choices including fruits and vegetables Last Documented On 3 9:40AM ; [facility] Patient education about a pr oper diet Last Documented On 3 9:40AM ; [facility] Patient education about an a sthma action plan Last Documented On 3 10:31AM ; [facility] Discussed concerns about exe rcise : promote physical activity Last Documented On 3 9:40AM ; [facility] Not requesting contraception Last Documented On 3 9:40AM ; [facility] Discussed nutritional needs teach healthy choices including fruits and vegetables Last Documented On 3 9:08AM ; [facility] Patient education about a pr oper diet Last Documented On 3 9:08AM ; [facility] Discussed concerns about exe rcise : promote physical activity Last Documented On 3 9:08AM ; [facility] Discussed nutritional needs teach healthy choices including fruits and vegetables Last Documented On 3 9:57AM ; [facility] Patient education about a pr oper diet Last Documented On 3 9:57AM ; [facility] Discussed concerns about exe rcise : promote physical activity Last Documented On 3 9:57AM ; [facility] Discussed nutritional needs teach healthy choices including fruits and vegetables Last Documented On 3 9:00AM ; [facility] Patient education about a pr oper diet Last Documented On 3 9:00AM ; [facility] Discussed concerns about exe rcise : promote physical activity Last Documented On 3 9:00AM ; [facility] Not requesting contraception Last Documented On 3 9:00AM ; [facility] Discussed nutritional needs teach healthy choices including fruits and vegetables Last Documented On 3 10:07AM ; [facility] Patient education about a pr oper diet Last Documented On 3 10:07AM ; [facility] Discussed concerns about exe rcise : promote physical activity Last Documented On 3 10:07AM ; [facility] Not requesting contraception Last Documented On 3 10:07AM ; [facility] Discussed nutritional needs teach healthy choices including fruits and vegetables Last Documented On 3 10:02AM ; [facility] Patient education about a pr oper diet Last Documented On 3 10:02AM ; [facility] Discussed concerns about exe rcise : promote physical activity Last Documented On 3 10:02AM ; [facility] Discussed nutritional needs teach healthy choices including fruits and vegetables Last Documented On 3 2:56PM ; [facility] Patient education about a pr oper diet Last Documented On 3 2:56PM ; [facility] Discussed concerns about exe rcise : promote physical activity Last Documented On 3 2:56PM ; [facility] Discussed nutritional needs teach healthy choices including fruits and vegetables Last Documented On 3 2:11PM ; [facility] Patient education about a pr oper diet Last Documented On 3 2:11PM ; [facility] Discussed concerns about exe rcise : promote physical activity Last Documented On 3 2:11PM ; [facility]HP educated patient on HPWO model of care. BHP and PA discussed patient mood, noting that her screenings were 0, but patient has reported history of bipolar, PTSD, and anxiety and has been on medications for years. BHP and PA discussed patient decision to stop medications to initiate a , noting that patient is following with psychiatry and has good supports around her. Thanh praised patient for 6 years substance free Last Documented On 3 11:35AM ; [facility] Discussed nutritional needs teach healthy choices including fruits and vegetables Last Documented On 3 10:53AM ; [facility] Patient education about a pr oper diet Last Documented On 3 10:53AM ; [facility] Discussed concerns about exe rcise : promote physical activity Last Documented On 3 10:53AM ; [facility] Work Phone: 1(239) 199-552402-21-2024 Progress note* Progress note Date Encounter Last Documented by 04/09/2023 Open Access - Established Last d ocumented on 04/09/2023; 10:53 AM, Juanita Lewis PA-C; [facility] Active Problems & Conditions - Asthma Mild Persistent with Exacerbation - Bipolar I Disorder - Classic Migraine with Aura with Intractable Migraine with Status Migrainosus - History of Anaphylactoid Drug Reaction - Iron Deficiency Anemia - Limb Pain Lower Leg - Nicotine Dependence Continuous - Prediabetes - Recurrent Loss (Non-gravid) Chief Complaint The Chief Complaint is: Pt here to discuss wanting to get on her psych meds and also wanting to get nexplanon today... pt also states she has been having cyst that having been busting and she wnats to do soemthihng about it. Referred Here Not referred by urgent care clinic and not the emergency room. No prior encounters. - Data to be reviewed: no clinical lab tests History of Present Illness Susy Diaz is a 27 year old female. - Allergy list reviewed - Problem list reviewed - Reviewed Medications - Medication list reviewed - Date of last menstruation 03/26/2023 - High irritability - Depression accompanied by sleeping more - Nightmares - Racing thoughts - Buying sprees - Craving nicotine - Impulsive behavior resulting in careless errors or omissions Susy is a 27 yr old female presenting to the office for a mood check and Nexplanon control placement. Patient has had Nexplanon before and has no concerns or questions about the procedure. Mood includes anxiety and issues sleeping. Previously on oxcarbazepine 600mg BID, propranolol ER 60, prazosin 1mg, effexor 150mg. She notes increased mood lability, depression, anxiety, racing thoughts. She is no longer trying to conceive and desires to get back on her previous doses. She has no complaints or side effects of medications. States her appetite is off and on, notices her weight changes off and on. No thoughts of SI. Admits to using THC, vaping that lasts her 1 month, and drinks alcohol socially. Is interested in quitting vaping and needs resources to help quit, i.e. patches. Notes her breathing was better when she was in penitentiary/not vaping. She has started drining water more regularly Current Medication - Acetaminophen 500 MG Oral Tablet 1 tab po tid prn pain, 14 days, 0 refills - Albuterol Sulfate HFA 108 (90 Base) MCG/ACT Inhalation Aerosol Solution 25 days, 0 refills - [facility] Fish Oil 1200 MG Oral Capsule 2 cap po qd, 30 days, 2 refills - [facility] Vitamin C 500 MG Oral Tablet 1 tab po qd, 30 days, 11 refills - EpiPen 2-Cordelia 0.3 MG/0.3ML Injection Solution Auto-injector inject into thigh at onset of allergic reaction, 30 days, 0 refills - Ferrous Sulfate 325 (65 Fe) MG Oral Tablet 30 days, 0 refills - Ibuprofen 800 MG Oral Tablet 1 tab po tid prn pain, 30 days, 0 refills - OneTouch Ultra In Vitro Strip USE TO CHECK BLOOD SUGARS ONCE DAILY, 30 days, 2 refills - OneTouch UltraSoft 2 Lancets Miscellaneous use to check blood sugar once per day, 30 days, 0 refills - SUMAtriptan Succinate 50 MG Oral Tablet 1 tab at the onset of migraine, repeat in 2 hours if needed. max 2/day, 30 days, 2 refills - Symbicort 160-4.5 MCG/ACT Inhalation Aerosol 2 inhalations by mouth bid, rinse mouth thoroughly after use, 30 days, 2 refills - Topamax 25 MG Oral Tablet 1 tab po qhs, 30 days, 5 refills - Vitamin D (Ergocalciferol) 65984 UNIT Oral Capsule 0 days, 0 refills Past Medical/Surgical History Other: No previous suicide attempt Reported: No Safety Measures. Medical: No previous hospitalizations. Immunization History: Recent immunization for flu. : Not planning a in the next year. Diagnoses: Systemic hypertension. Asthma. Psychiatric disorders Surgical: - Extraction of wisdom tooth Social History Environmental Exposure: No secondhand cigarette smoke exposure. Behavioral: Not a current tobacco user. Tobacco use: Using electronic cigarettes/vaping. Alcohol: A social drinker. Drug Use: Using marijuana. Sexual: Sexually active, sexual orientation Straight (not lesbian or ferrara), and gender identity Female. Allergies - cabbage Reaction: Anaphylaxis (Severe) - Dove Reaction: Skin Rashes / Eruption of skin (Moderate) - Codeine - grape fruit Reaction: Anaphylaxis (Severe) - Lactose intolerance Reaction: Nausea (Severe) - metFORMIN HCl - tomatoes Reaction: Anaphylaxis (Severe) - Toradol Family History Paternal: Systemic hypertension Type 1 diabetes mellitus Psychiatric disorders Maternal: Systemic hypertension Type 2 diabetes mellitus Psychiatric disorders Oncologic disorder Fraternal: Psychiatric disorders Sororal: Psychiatric disorders Review Of Systems Systemic: No systemic symptoms. Head: No head symptoms. Neck: No neck symptoms. Eyes: No eye symptoms. Otolaryngeal: No ear symptoms, no nasal symptoms, and no throat symptoms. Cardiovascular: No cardiovascular symptoms and no palpitations. Pulmonary: No dyspnea, no cough, and no wheezing. Gastrointestinal: No gastrointestinal symptoms. Genitourinary: No genitourinary symptoms. Musculoskeletal: No musculoskeletal symptoms. Neurological: No neurological symptoms. Psychological: High irritability, depression accompanied by sleeping more, nightmares, racing thoughts, buying sprees, craving nicotine, and impulsive behavior resulting in careless errors or omissions. Skin: No skin symptoms. Physical Findings - Vitals taken 04/09/2023 09:08 am BP-Sitting L126/87 mmHg BP Cuff SizeLarge Pulse Rate-Boctnkm59 bpm Temp-Oral97.1 F Kgdlxr61 in Wjwier538 lbs 3.2 oz Body Mass Index46 kg/m2 Body Surface Area2.3 m2 Oxygen Jquglzdebx16 % Vital Signs: - Systolic blood pressure < 130 mmHg. - Diastolic blood pressure 80-89 mmHg. General Appearance: - Awake. - Alert. - Well developed. - Well nourished. - In no acute distress. Head: Appearance: - Head normocephalic. Eyes: General/bilateral: Extraocular Movements: - Normal. Sclera: - Normal. Nose: General/bilateral: Discharge: - No nasal discharge. External Deformities: - No external nose deformities. Oral Cavity: Lips: - Showed no abnormalities. Lymph Nodes: - No adenopathy. Lungs: - Respiration rhythm and depth was normal. - Clear to auscultation. Cardiovascular: Heart Rate And Rhythm: - Normal. Heart Sounds: - Normal. Murmurs: - No murmurs were heard. Back: - No costovertebral angle tenderness. Abdomen: Auscultation: - Bowel sounds were normal. Palpation: - Abdominal non-tender. Musculoskeletal System: General/bilateral: - Normal movement of all extremities. Neurological: - No confusion was observed. - Oriented to time, place, and person. Speech: - Normal. Balance: - Normal. Gait And Stance: - Normal. Psychiatric: - Mood was elevated. - Mood was irritable. Appearance: - Not tired. - Grooming was normal. Demonstrated Behavior: - Appropriate behavior for patient. Affect: - Showed irritability. Skin: - General appearance was normal. Tests Laboratory-based Chemistry: Other Laboratory Tests: Screening for sexually transmitted infections was not performed. Assessment - Z68.42 - Body mass index [BMI] 45.0-49.9, adult - R73.03 - Prediabetes - F31.9 - Bipolar disorder, unspecified - D50.9 - Iron deficiency anemia, unspecified - Intervention and counseling on cessation of tobacco use, 3-10 minutes Discussed medication and nicotine replacement for tobacco cessation - Z30.017 - Encounter for initial prescription of implantable subdermal contraceptive Therapy - Other Administered 1 applicator of Nexplanon 68 MG on 04/09/23 10:00a, Patient tolerated therapy well. No signs or symptoms of adverse reactions. Patient waited in clinic for 15 minutes after administration. Administered 3 mL of Lidocaine-EPINEPHrine 2 %-1:[id number] on 04/09/23 10:00a, Patient tolerated therapy well. No signs or symptoms of adverse reactions. Patient waited in clinic for 15 min after administration. - Insertion of non-biodegradable drug delivery implant. - Preprocedure Time-Out completed. Vaccinations - Received dose of Reported: Patient has received the COVID Vaccine Counseling/Education - Wishing to stop using electronic cigarettes/vaping - Discussed nutritional needs teach healthy choices including fruits and vegetables - Patient education about a proper diet - Discussed concerns about exercise: promote physical activity Plan StartCited- Bipolar disorder, unspecified Outside Labs/General Labs: CBC w/o diff (CBC), Comprehensive Metabolic Panel (CP), Hemoglobin A1c, Vitamin D, Iron & Iron Binding (FEBC), Lipid Panel (LIPR) OXcarbazepine 300 MG tablet 1 tab po bid, 30 days, 0 refills Prazosin HCl 1 MG capsule 1 cap po qhs, 30 days, 0 refills Effexor XR 37.5 MG capsule 1 cap po qd, 14 days, 0 refills EndCited StartCited- Enctr for init prescription of implntbl subdermal contracep In House Medications/Meds: Lidocaine 2% with Epinephrine INJ(Xylocaine w/epi), Nexplanon Implant In House Medications/Injection Codes: 21573 Therapeutic Prophy or Diag Injection, EACH EndCited StartCited- Iron deficiency anemia, unspecified Ferrous Sulfate 325 (65 Fe) MG tablet 2 tab po qod, 30 days, 5 refills EndCited StartCited- Migraine with aura, intractable, with status migrainosus Ibuprofen 800 MG tablet 1 tab po tid prn pain, 30 days, 2 refills EndCited StartCited- Mild persistent asthma with (acute) exacerbation Symbicort 160-4.5 MCG/ACT gram 2 inhalations by mouth bid, rinse mouth thoroughly after use, 30 days, 5 refills EndCited StartCited- Nicotine dependence, unspecified, uncomplicated EQ Nicotine 14 MG/24HR patch apply to affected area once per day in the morning, remove at nighttime, 30 days, 0 refills EndCited StartCited- Pain in left lower leg Acetaminophen 500 MG tablet 1 tab po tid prn pain, 14 days, 0 refills EndCited StartCited- Prediabetes OneTouch Ultra strip USE TO CHECK BLOOD SUGARS ONCE DAILY, 30 days, 2 refills OneTouch UltraSoft 2 Lancets each use to check blood sugar once per day, 30 days, 2 refills EndCited follow up 2 weeks mood check, or sooner as needed Health Reminders - Assess BMI satisfied 04/09/2023. - Assess Tobacco Use satisfied 04/09/2023. - Follow Up Plan BMI Management satisfied 04/09/2023. User Defined 2 Nexplanon Implant placed Patient is being seen today for Nexplanon insertion for control. We have thoroughly discussed Nexplanon, and the patient has no contraindications to the implant or local anesthetics. She understands the success and failure rates of the implant. She is aware of the potential for altered or irregular bleeding patterns and other options for control. We have discussed the insertion procedure and removal procedure, and risks of insertion and removal. She has had an opportunity to have her questions answered. Patient was placed in the supine position. The right arm was flexed at the elbow and externally rotated so that her hand was under her head. Insertion site was identified at the inner side of the arm 8-10 cm above the medial epicondyle of the humerus and 3-4 cm posterior to the sulcus overlying the triceps muscle. Two estrada were made with a sterile marker: the first located at the insertion site and the second a few centimeters proximal to the first gloria to guide direction. The insertion site was cleaned with an antiseptic solution. The insertion site was anesthetized with 3 mL 2% lidocaine with epi. The skin was stretched around the insertion site with the thumb and index finger. The skin was punctured with the tip of the needle angled about 30 degrees. The implant was inserted subdermally. Placement was verified by myself and the patient via palpation. The patient tolerated the procedure well. Nexplanon Implant Wound Care: Patient was instructed on wound care. She is to leave the pressure dressing in place for 24 hours. After 24 hours, she may remove the pressure dressing, but not the bandaid. That should stay in place for 3-5 days. Patient was also instructed that she needs to continue to use condoms for the first month. The patient understands to follow up if fever, chills, light headed, chest pain, shortness of breath, heavy bleeding or any other severe symptom. Consent form on file for procedure:Nexplanon. [facility]02-21-2024 Progress note* Progress note Date Encounter Last Documented by 04/09/2023 Established Patient Last docu mented on 04/14/2023; 4:48 PM, Kristin SALGADO; [facility] Active Problems & Conditions - J45.31 - Asthma Mild Persistent with Exacerbation - F31.9 - Bipolar I Disorder - G43.111 - Classic Migraine with Aura with Intractable Migraine with Status Migrainosus - Z87.892 - History of Anaphylactoid Drug Reaction - D50.9 - Iron Deficiency Anemia - M79.662 - Limb Pain Lower Leg - F17.200 - Nicotine Dependence Continuous - R73.03 - Prediabetes - N96 - Recurrent Loss (Non-gravid) Chief Complaint The Chief Complaint is: Restart mood medications. History of Present Illness Susy Diaz is a 27 year old female. - Normal appetite. - Anxiety - Depression - Sleep disturbances - Energy level is good - Racing thoughts - - Progress: PHQ is 12. LEXY is 12. Negative SBIRT Subjective P met with patient to complete screenings, discuss mood, and medications today. Patient presents for Nexplanon insertion and restarting mood medications noting her mood has been worsening without her medications. Patient endorses worsening anxiety and sleep issues. Patient has been experiencing worsening depression, anxiety, and racing thoughts. Patient is no longer trying to conceive and desires to restart control and mood meds. Patient states her appetite fluctuates and denies any SI. Patient continues to use marijuana and vaping nicotine noting her vape is refillable and lasts her 1 month. Patient is interested in nicotine replacement therapy noting nicotine patches has helped her in the past. Patient denies any other BH concerns today and denies any harmful thoughts. Current Medication - Acetaminophen 500 MG Oral Tablet 1 tab po tid prn pain, 14 days, 0 refills - Acetaminophen 500 MG Oral Tablet 1 tab po tid prn pain, 14 days, 0 refills - Albuterol Sulfate HFA 108 (90 Base) MCG/ACT Inhalation Aerosol Solution Aerosol, solution 25 days, 0 refills - [facility] Fish Oil 1200 MG Oral Capsule Capsule, conventional 2 cap po qd, 30 days, 2 refills - [facility] Vitamin C 500 MG Oral Tablet 1 tab po qd, 30 days, 11 refills - Effexor XR 37.5 MG Oral Capsule Extended Release 24 Hour Capsule, extended- release 24 hour 1 cap po qd, 14 days, 0 refills - EpiPen 2-Cordelia 0.3 MG/0.3ML Injection Solution Auto-injector inject into thigh at onset of allergic reaction, 30 days, 0 refills - EQ Nicotine 14 MG/24HR Transdermal Patch 24 Hour apply to affected area once per day in the morning, remove at nighttime, 30 days, 0 refills - Ferrous Sulfate 325 (65 Fe) MG Oral Tablet 2 tab po qod, 30 days, 5 refills - Ferrous Sulfate 325 (65 Fe) MG Oral Tablet 30 days, 0 refills - Ibuprofen 800 MG Oral Tablet 1 tab po tid prn pain, 30 days, 2 refills - Ibuprofen 800 MG Oral Tablet 1 tab po tid prn pain, 30 days, 0 refills - OneTouch Ultra In Vitro Strip USE TO CHECK BLOOD SUGARS ONCE DAILY, 30 days, 2 refills - OneTouch Ultra In Vitro Strip USE TO CHECK BLOOD SUGARS ONCE DAILY, 30 days, 2 refills - OneTouch UltraSoft 2 Lancets Miscellaneous Miscellaneous (not specified) use to check blood sugar once per day, 30 days, 2 refills - OneTouch UltraSoft 2 Lancets Miscellaneous Miscellaneous (not specified) use to check blood sugar once per day, 30 days, 0 refills - OXcarbazepine 300 MG Oral Tablet 1 tab po bid, 30 days, 0 refills - Prazosin HCl 1 MG Oral Capsule Capsule, conventional 1 cap po qhs, 30 days, 0 refills - SUMAtriptan Succinate 50 MG Oral Tablet 1 tab at the onset of migraine, repeat in 2 hours if needed. max 2/day, 30 days, 2 refills - Symbicort 160-4.5 MCG/ACT Inhalation Aerosol 2 inhalations by mouth bid, rinse mouth thoroughly after use, 30 days, 5 refills - Symbicort 160-4.5 MCG/ACT Inhalation Aerosol 2 inhalations by mouth bid, rinse mouth thoroughly after use, 30 days, 2 refills - Topamax 25 MG Oral Tablet 1 tab po qhs, 30 days, 5 refills - Vitamin D (Ergocalciferol) 84438 UNIT Oral Capsule Capsule, conventional 0 days, 0 refills Past Medical/Surgical History Other: No previous suicide attempt Reported: No Safety Measures. Medical: No previous hospitalizations. Immunization History: Recent immunization for flu. : Not planning a in the next year. Diagnoses: Systemic hypertension. Asthma. Psychiatric disorders Surgical: - Extraction of wisdom tooth Social History Environmental Exposure: No secondhand cigarette smoke exposure. Behavioral: Not a current tobacco user. Tobacco use: Using electronic cigarettes/vaping. Alcohol: A social drinker. Drug Use: Using marijuana. Sexual: Sexually active, sexual orientation Straight (not lesbian or ferrara), gender identity Female, and control is being practiced Nexplanon. Allergies - cabbage Reaction: Anaphylaxis (Severe) - Dove Reaction: Skin Rashes / Eruption of skin (Moderate) - Codeine - grape fruit Reaction: Anaphylaxis (Severe) - Lactose intolerance Reaction: Nausea (Severe) - metFORMIN HCl - tomatoes Reaction: Anaphylaxis (Severe) - Toradol Family History Paternal: Systemic hypertension Type 1 diabetes mellitus Psychiatric disorders Maternal: Systemic hypertension Type 2 diabetes mellitus Psychiatric disorders Oncologic disorder Fraternal: Psychiatric disorders Sororal: Psychiatric disorders Physical Findings General Appearance: - Normal Appearance. Neurological: - Cognitive Functions was Normal. - Estimated intelligence was normal. - Oriented to time, place, and person. - No hallucinations. - Judgement was not impaired. Speech: - Is Normal. Psychiatric: - Mood was anxious. - Attitude Open. Appearance: - Normal. Demonstrated Behavior: - Eye Contact Appropriate. Affect: - Congruent with the mood. Thought Processes: - Not impaired. Thought Content: - Revealed no impairment. - Insight was intact. - No delusions. - No suicidal ideation. - No Passive thoughts of . - No suicidal plans. - No suicidal intent. - No homicidal ideations. - No homicidal plans. - No homicidal intent. Past Medical: - No repetitive self injurious behavior. - No access to weapons / guns in home. Assessment - F17.200 - Nicotine dependence, unspecified, uncomplicated - F31.9 - Bipolar disorder, unspecified - Intervention and counseling on cessation of tobacco use, 3-10 minutes Discussed medication and nicotine replacement for tobacco cessation Therapy - SBIRT Full Screen Neg. - Brief solution-focused therapy. - Non-adherent with medications. - Referral to mental health team. - Plan - PA to restart previous mood and sleep medications and patient is agreeable. and Collaborated with patient and provider: Counseling/Education - Wishing to stop using electronic cigarettes/vaping *P offered active and supportive listening, normalized emotions and feelings, and processed current stressors noting patient is endorsing worsening anxiety, depression, and sleep issues. BHP and PA discussed previous medications she was on acknowledging that patient would like to restart the same medications she was on previously. BHP and PA discussed nicotine replacement with patient noting patient would like nicotine patches as they worked for her in the past. Patient was receptive during todays visit. Plan *Patient to follow up as scheduled. Health Reminders - Assess Tobacco Use satisfied 04/14/2023. - LEXY-2 satisfied 04/09/2023. - PHQ9 / PHQA satisfied 04/09/2023. - SBIRT satisfied 04/09/2023. User Defined 1 Not planning a in the next year. She has not had 4 or more drinks in a day within the past year., no misuse of prescription only drugs, and not illicit. Little interest or pleasure in doing things in the last 2 weeks? 1 pt Several days, Feeling down, depressed, or hopeless in the last 2 weeks? 2 pt More than half the days, and [PHQ-2] Patient Health Questionnaire 2 item total score: 3 pts (Scale: 0-6) PHQ2. LEXY-2 score was six 04/09/2023, LEXY-7 score was twelve [LEXY-7] Feeling nervous, anxious or on edge? + 3 pt : Nearly every day, [LEXY-7] Feeling nervous, anxious or on edge? + 3 pt : Nearly every day, [LEXY-7] Not being able to stop or control worrying? + 3 pt : Nearly every day, [LEXY-7] Not being able to stop or control worrying? + 3 pt : Nearly every day, [LEXY-7] Worrying too much about different things? + 2 pt : More than half the days, [LEXY-7] Trouble relaxing? + 1 pt : Several days, [LEXY-7] Being so restless that it's hard to sit still? + 1 pt : Several days, [LEXY-7] Becoming easily annoyed or irritable? + 2 pt : More than half the days, [LEXY-7] Feeling afraid as if something awful might happen? + 0 pt : Not at all, Patient Health Questionnaire 9-Item total score was twelve 04/09/2023 If you checked off problems, how difficult is it for you to do your work? + : Somewhat difficult, [PHQ-9-1] Little interest or pleasure in doing things? + 1 pt : Several days, [PHQ-9-2] Feeling down, depressed, or hopeless? + 2 pt : More than half the days, [PHQ-9-3] Trouble falling or staying asleep or sleeping too much? + 3 pt : Nearly every day, [PHQ-9-4] Feeling tired or having little energy? + 1 pt : Several days, [PHQ-9-5] Poor appetite or overeating? + 2 pt : More than half the days, [PHQ-9-6] Feeling bad about yourself-or that you are a failure + 2 pt : More than half the days, [PHQ-9-7] Trouble concentrating on things such as reading the newspaper + 1 pt : Several days, [PHQ-9-8] Moving or speaking so slowly that other people have noticed. + 0 pt : Not at all, [PHQ-9-9] Thoughts that you would be better off or hurting yourself? + 0 pt : Not at all, and LEXY If you checked off problems, how difficult is it for you to do your work, take care of things, or get along? Somewhat difficult. [facility]02-21-2024 Reason for referral (narrative)* Date Encounter Description Provider Reason for Referral 04/09/23 Established Patient Kristin Grande Referral To Mental Health Team 01/24/23 Established Patient Kristin Grande External referral/Resources provided - : Sleep hygiene. ~ 01/24/23 Medical Established Patient Juanita saunders PA-C Referral To Mental Health Team [facility] Work Phone: 1(474) 785-333402-21-2024 Instructions Includes: Instructions for all patient encounters Instructions to patient Intervention and counseling on cessation of tobacco use, 3-10 minutes Discussed medication and nicotine replacement for tobacco cessation Last Documented On 4 10:17AM ; [facility] Intervention and counseling on cessation of tobacco use, 3-10 minutes Discussed medication and nicotine replacement for tobacco cessation Last Documented On 4 10:50AM ; [facility] Intervention and counseling on cessation of tobacco use, 3-10 minutes Discussed medication and nicotine replacement for tobacco cessation Last Documented On 3 8:19PM ; [facility] Education and Decision Aids were provided during visit for: Discussed nutritional needs teach healthy choices including fruits and vegetables Last Documented On 4 9:12AM ; [facility] Patient education about a pr oper diet Last Documented On 4 9:12AM ; [facility] Discussed concerns about exe rcise : promote physical activity Last Documented On 4 9:12AM ; [facility] *[facility] offered active and supp ortive listening, normalized emotions and feelings, and processed current stressors. ~*Discussed healthy coping skills and positive supports in patient's life. ~*Discussed proper sleep hygiene skills to implement to improve sleep. ~ Last Documented On 3 9:42PM ; [facility] Discussed nutritional needs teach healthy choices including fruits and vegetables Last Documented On 3 9:40AM ; [facility] Patient education about a pr oper diet Last Documented On 3 9:40AM ; [facility] Patient education about an a sthma action plan Last Documented On 3 10:31AM ; [facility] Discussed concerns about exe rcise : promote physical activity Last Documented On 3 9:40AM ; [facility] Not requesting contraception Last Documented On 3 9:40AM ; [facility] Discussed nutritional needs teach healthy choices including fruits and vegetables Last Documented On 3 9:08AM ; [facility] Patient education about a pr oper diet Last Documented On 3 9:08AM ; [facility] Discussed concerns about exe rcise : promote physical activity Last Documented On 3 9:08AM ; [facility] Discussed nutritional needs teach healthy choices including fruits and vegetables Last Documented On 3 9:57AM ; [facility] Patient education about a pr oper diet Last Documented On 3 9:57AM ; [facility] Discussed concerns about exe rcise : promote physical activity Last Documented On 3 9:57AM ; [facility] Discussed nutritional needs teach healthy choices including fruits and vegetables Last Documented On 3 9:00AM ; [facility] Patient education about a pr oper diet Last Documented On 3 9:00AM ; [facility] Discussed concerns about exe rcise : promote physical activity Last Documented On 3 9:00AM ; [facility] Not requesting contraception Last Documented On 3 9:00AM ; [facility] Discussed nutritional needs teach healthy choices including fruits and vegetables Last Documented On 3 10:07AM ; [facility] Patient education about a pr oper diet Last Documented On 3 10:07AM ; [facility] Discussed concerns about exe rcise : promote physical activity Last Documented On 3 10:07AM ; [facility] Not requesting contraception Last Documented On 3 10:07AM ; [facility] Discussed nutritional needs teach healthy choices including fruits and vegetables Last Documented On 3 10:02AM ; [facility] Patient education about a pr oper diet Last Documented On 3 10:02AM ; [facility] Discussed concerns about exe rcise : promote physical activity Last Documented On 3 10:02AM ; [facility] Discussed nutritional needs teach healthy choices including fruits and vegetables Last Documented On 3 2:56PM ; [facility] Patient education about a pr oper diet Last Documented On 3 2:56PM ; [facility] Discussed concerns about exe rcise : promote physical activity Last Documented On 3 2:56PM ; [facility] Discussed nutritional needs teach healthy choices including fruits and vegetables Last Documented On 3 2:11PM ; [facility] Patient education about a pr oper diet Last Documented On 3 2:11PM ; [facility] Discussed concerns about exe rcise : promote physical activity Last [facility] 3 2:11PM [facility] BHP and PA discussed patient mood, noting that her screenings were 0, but patient has reported history of bipolar, PTSD, and anxiety and has been on medications for years. BHP and PA discussed patient decision to stop medications to initiate a , noting that patient is following with psychiatry and has good supports around her. [facility] praised patient for 6 years substance free Last Documented On 3 11:35AM ; [facility] Discussed nutritional needs teach healthy choices including fruits and vegetables Last Documented On 3 10:53AM ; [facility] Patient education about a pr oper diet Last Documented On 3 10:53AM ; [facility] Discussed concerns about exe rcise : promote physical activity Last Documented On 3 10:53AM ; [facility] Work Phone: 1([phone]) 173-575601-10-2024 History of Present illness Narrative* Rosalie Cox, [facility] - 02/26/2023 12:15 PM EST Subjective: Patient ID: Susy Diaz is a 27 y.o. female. Chief Complaint Patient presents with Sinus Problem Uri URI This is a new problem. The current episode started in the past 7 days. The problem has been unchanged. There has been no fever. Associated symptoms include congestion, coughing, ear pain, headaches, rhinorrhea and sinus pain. Pertinent negatives include no abdominal pain, chest pain, diarrhea, dysuria, joint pain, joint swelling, nausea, neck pain, plugged ear sensation, rash, sneezing, sore throat, swollen glands, vomiting or wheezing. The treatment provided mild relief. The following portions of the patient's history were reviewed and updated as appropriate: allergies, current medications, past family history, past medical history, past social history, past surgicalhistory and problem list. Review of Systems Constitutional: Negative for chills and fever. HENT: Positive for congestion, ear pain, postnasal drip, rhinorrhea and sinus pain. Negative for sneezing and sore throat. Respiratory: Positive for cough. Negative for shortness of breath and wheezing. Cardiovascular: Negative for chest pain. Gastrointestinal: Negative for abdominal pain, diarrhea, nausea and vomiting. Genitourinary: Negative for dysuria. Musculoskeletal: Negative for joint pain and neck pain. Skin: Negative for rash. Allergic/Immunologic: Positive for environmental allergies and food allergies. Neurological: Positive for headaches. Negative for dizziness and light-headedness. Past Medical History: Diagnosis Date Anxiety Bipolar disorder ([facility] [place]) Depression Headache Multiple personality disorder ([facility] [place]) Panic disorder PCOS (polycystic ovarian syndrome) PTSD (post-traumatic stress disorder) Past Surgical History: Procedure Laterality Date SHOULDER SURGERY WISDOM TOOTH EXTRACTION Social History Tobacco Use Smoking status: Every Day Types: Vaping/E-cigarettes Smokeless tobacco: Never Tobacco comments: refused counseling Vaping Use Vaping Use: Every day Substances: Nicotine Substance Use Topics Alcohol use: Yes Comment: Occassionally Drug use: Yes Types: Marijuana Family History Adopted: Yes Allergies Allergen Reactions Egg Derived Anaphylaxis Tomato Anaphylaxis Dove Flavor Dermatitis Grapefruit Hives Metformin Hives Codeine Ketorolac Tromethamine Hives Nutritional Supplements Hives Cabbage Hives Flavoring Agent Hives and Rash And Dove flavoring agent. Latex Rash Robaxin [Methocarbamol] Rash Current Outpatient Medications on File Prior to Visit Medication Sig Dispense Refill albuterol (PROVENTIL HFA;VENTOLIN HFA) 90 mcg/actuation inhaler Inhale 1-2 puffs every 6 (six) hours as needed for wheezing. 18 g 0 albuterol (PROVENTIL,VENTOLIN) 2.5 mg /3 mL (0.083 %) nebulizer solution Inhale 3 mL (2.5 mg total)by nebulization every 6 (six) hours as needed for wheezing. 75 mL 0 blood sugar diagnostic strip 1 strip by other route as needed for high blood sugar. 100 strip 3 blood-glucose meter kit Use as instructed 1 each 0 prazosin (MINIPRESS) 2 mg capsule Take 1 capsule (2 mg total) by mouth nightly. SYMBICORT 160-4.5 mcg/actuation inhaler INHALE TWO puffs BY MOUTH TWICE DAILY. RINSE MOUTH AFTER USE. traZODone (DESYREL) 75 mg tablet Take 1 split tablet (75 mg total) by mouth nightly. gabapentin (NEURONTIN) 100 mg capsule Take 1 capsule (100 mg total) by mouth in the morning and 1 capsule (100 mg total) before bedtime. OXcarbazepine (TRILEPTAL) 600 mg tablet Take 1 tablet (600 mg total) by mouth in the morning and 1 tablet (600 mg total) before bedtime. SE- 19 CHEWABLE 29 mg iron- 1 mg tablet,chewable CHEW AND SWALLOW 1 TABLET ONCE DAILY (Patientnot taking: Reported on 01/31/2023) 90 tablet 7 sertraline (ZOLOFT) 50 mg tablet Take 1 tablet (50 mg total) by mouth in the morning. No current facility-administered medications on file prior to visit. Objective: Vitals: 02/26/23 1246 BP: 135/87 Pulse: 75 Resp: 18 Temp: 36.9 C (98.5 F) TempSrc: Temporal SpO2: 100% Weight: 129.3 kg (285 lb) Patient's last menstrual period was 01/31/2023. The patient is not currently . Body mass index is 46 kg/m . Facility age limit for growth %bijal is 20 years. Physical Exam Vitals and nursing note reviewed. Constitutional: General: She is not in acute distress. Appearance: She is well-developed and well-groomed. She is obese. She is not ill-appearing. HENT: Head: Normocephalic and atraumatic. Right Ear: Ear canal and external ear normal. A middle ear effusion is present. No mastoid tenderness. Tympanic membrane is erythematous and bulging. Tympanic membrane is not perforated. Left Ear: Ear canal and external ear normal. A middle ear effusion is present. No mastoid tenderness. Tympanic membrane is erythematous and bulging. Tympanic membrane is not perforated. Nose: Congestion and rhinorrhea present. Mouth/Throat: Lips: Angie. Mouth: Mucous membranes are moist. Pharynx: Oropharynx is clear. Uvula midline. Eyes: General: No scleral icterus. Conjunctiva/sclera: Conjunctivae normal. Neck: Trachea: Phonation normal. Cardiovascular: Rate and Rhythm: Normal rate and regular rhythm. Heart sounds: Normal heart sounds. Pulmonary: Effort: Pulmonary effort is normal. Breath sounds: Normal breath sounds. Lymphadenopathy: Cervical: No cervical adenopathy. Skin: General: Skin is warm and dry. Capillary Refill: Capillary refill takes less than 2 seconds. Neurological: Mental Status: She is alert and oriented to person, place, and time. Psychiatric: Speech: Speech normal. Behavior: Behavior normal. Behavior is cooperative. Assessment/Plan: Differentials: viral vs bacterial sinusitis. Allergic rhinitis, PND, otitis media Sinus infections Saline nose rinse to help clear your sinuses. Drink 6 to 8 glasses of water each day to help thin mucus. Use two or three pillows under your head and shoulders when you sleep. This will help your sinuses drain. Drape a towel over your head as you breathe in the steam from a bowl of warm water. This will help moisturize your sinuses. This may also drain clogged sinuses. Use a warm compress to your face to ease facial pain. Take a nonprescription pain medicine for the pain. Take Tylenol/acetaminophen and Advil/motrin/ibuprofen every 6 hours to help with pain and/or fever. Do not take tylenol if you have liver disease. Do not take ibuprofen if you have a history of stomach ulcers or acid reflux, heart disease, or are on anticoagulation therapy, or if you are . Do not take aspirin if you are under the age of 18. Keep your nose as moist as possible. Use saline sprays, washes, and a humidifier often. Avoid being around cigarette and cigar smoke or strong odors from chemicals. Avoid long periods of swimming in pools treated with chlorine. This can bother the lining of the nose and sinuses. Avoid water diving. This forces water into the sinuses from the nasal passages. Manage your allergies with your doctor's help. Use an air conditioner if allergies are a problem. Before air travel, use a drug to dry up mucus. As the plane takes off or lands, the pressure can cause sinus pain. Rest, Hydration, and Humidification. Discussed with the patient and all questioned fully answered. Patient will call me if any problems arise. Follow up with PCP if not improving. Patient given discharge paperwork. Paperwork explained. Patient denies questions or concerns. Discussed importance of follow-up with PCP. Discussed with the patient and all questioned fully answered. She will call me if any problems arise. Labs for this visit: No visits with results within 1 Day(s) from this visit. Latest known visit with results is: Office Visit on 02/05/2023 Component Date Value External Poct Rapid Stre* 02/05/2023 Negative Internal Supervisor Boarding* 02/05/2023 Yes External Poct Influenza * 02/05/2023 Negative External Poct Influenza * 02/05/2023 Negative External POCT SARS COV 2* 02/05/2023 Presumptive Negative Susy was seen today for sinus problem. Diagnoses and all orders for this visit: Acute bilateral otitis media - amoxicillin-pot clavulanate (AUGMENTIN) 875-125 mg per tablet; Take 1 tablet by mouth in the morning and 1 tablet before bedtime. Do all this for 7 days. Other orders - bfjlxkztdxtaoqx-cgfqtxirr-DK 2-30-10 mg/5 mL syrup; Take 10 mL by mouth 4 (four) times a day as needed for allergies, cough or congestion. Orders Placed or Reconciled This Encounter Medications amoxicillin-pot clavulanate (AUGMENTIN) 875-125 mg per tablet Sig: Take 1 tablet by mouth in the morning and 1 tablet before bedtime. Do all this for 7 days. Dispense: 14 tablet Refill: 0 pwlnalwpenzhlic-cqtedthux-OP 2-30-10 mg/5 mL syrup Sig: Take 10 mL by mouth 4 (four) times a day as needed for allergies, cough or congestion. Dispense: 120 mL Refill: 0 Patient Instructions Saline nose rinse to help clear your sinuses. Drink 6 to 8 glasses of water each day to help thin mucus. Use two or three pillows under your head and shoulders when you sleep. This will help your sinuses drain. Drape a towel over your head as you breathe in the steam from a bowl of warm water. This will help moisturize your sinuses. This may also drain clogged sinuses. Use a warm compress to your face to ease facial pain. Take a nonprescription pain medicine for the pain. Take Tylenol/acetaminophen and Advil/motrin/ibuprofen every 6 hours to help with pain and/or fever. Do not take tylenol if you have liver disease. Do not take ibuprofen if you have a history of stomach ulcers or acid reflux, heart disease, or are on anticoagulation therapy, or if you are . Do not take aspirin if you are under the age of 18. Keep your nose as moist as possible. Use saline sprays, washes, and a humidifier often. Avoid being around cigarette and cigar smoke or strong odors from chemicals. Avoid long periods of swimming in pools treated with chlorine. This can bother the lining of the nose and sinuses. Avoid water diving. This forces water into the sinuses from the nasal passages. Manage your allergies with your doctor's help. Use an air conditioner if allergies are a problem. Before air travel, use a drug to dry up mucus. As the plane takes off or lands, the pressure can cause sinus pain. Rest, Hydration, and Humidification. Discussed with the patient and all questioned fully answered. Patient will call me if any problems arise. Follow up with PCP if not improving. This note is dictated with the use of M*Modal.Please note that this dictation was completed with computer voice recognition software. Quite often unanticipated grammatical, syntax, homophones, and other interpretive errors are inadvertently transcribed by the computer software. Please disregard these errors. Please excuse any errors that have escaped final proofreading. I personally discussed test results with patient/parent. Education handout and discharge papers given. Paperwork explained. Denies questions or concerns. Discussed that follow up care is usually required after a visit to the Urgent care. It is your responsibility to contact your primary care provider for follow up. If symptoms are not improving, worsening, or concerning symptoms of illness develop, follow up withyour primary care provider or go to the nearest Emergency Department for further care immediately. Rosalie Cox, WILDER-JAROD 02/26/23 1318 documented in this encounterGuernsey [facility] HospitalI-Stand01-10-2024 Instructions* Patient Instructions* CONNOR Vazquez - 02/26/2023 12:15 PM EST Saline nose rinse to help clear your sinuses. Drink 6 to 8 glasses of water each day to help thin mucus. Use two or three pillows under your head and shoulders when you sleep. This will help your sinuses drain. Drape a towel over your head as you breathe in the steam from a bowl of warm water. This will help moisturize your sinuses. This may also drain clogged sinuses. Use a warm compress to your face to ease facial pain. Take a nonprescription pain medicine for the pain. Take Tylenol/acetaminophen and Advil/motrin/ibuprofen every 6 hours to help with pain and/or fever. Do not take tylenol if you have liver disease. Do not take ibuprofen if you have a history of stomach ulcers or acid reflux, heart disease, or are on anticoagulation therapy, or if you are . Do not take aspirin if you are under the age of 18. Keep your nose as moist as possible. Use saline sprays, washes, and a humidifier often. Avoid being around cigarette and cigar smoke or strong odors from chemicals. Avoid long periods of swimming in pools treated with chlorine. This can bother the lining of the nose and sinuses. Avoid water diving. This forces water into the sinuses from the nasal passages. Manage your allergies with your doctor's help. Use an air conditioner if allergies are a problem. Before air travel, use a drug to dry up mucus. As the plane takes off or lands, the pressure can cause sinus pain. Rest, Hydration, and Humidification. Discussed with the patient and all questioned fully answered. Patient will call me if any problems arise. Follow up with PCP if not improving. * Attachments The following attachments cannot be sent through Care Everywhere. * Ear Infections (Otitis Media) in Adults Discharge Instructions (Austrian) documented in this encounterGuernsey [facility] HospitalI-Stand12-10-2023 History general Narrative - Reported Includes: Medical History in patient's chart Description Last Updated No Safety Measures 01/26/2023 Last Documented On 3 9:45PM ; [facility] Not planning to have a baby in the next 12 months 10/09/2022 Last Documented On 3 2:42PM ; [facility] Recent immunization for flu 05/27/2022 Last Documented On 3 4:00PM ; [facility] No previous suicide attempt 04/29/2022 Last Documented On 3 11:36AM ; [facility] History of asthma 04/29/2022 Last Documented On 3 1:03PM ; [facility] History of psychiatric disorders 023 Last Documented On 3 1:03PM ; [facility] History of systemic hypertension 023 Last Documented On 3 1:03PM ; [facility] No previous hospitalizations 04/29/2022 Last Documented On 3 1:03PM ; [facility] Work Phone: 1(121) 749-404612-10-2023 History general Narrative - Reported Includes: Medical History in patient's chart Description Last Updated No Safety Measures 01/26/2023 Last Documented On 3 9:45PM ; [facility] Not planning to have a baby in the next 12 months 10/09/2022 Last Documented On 3 2:42PM ; [facility] Recent immunization for flu 05/27/2022 Last Documented On 3 4:00PM ; [facility] No previous suicide attempt 04/29/2022 Last Documented On 3 11:36AM ; [facility] History of asthma 04/29/2022 Last Documented On 3 1:03PM ; [facility] History of psychiatric disorders 023 Last Documented On 3 1:03PM ; [facility] History of systemic hypertension 023 Last Documented On 3 1:03PM ; [facility] No previous hospitalizations 04/29/2022 Last Documented On 3 1:03PM ; [facility] Work Phone: 1(767) 225-853112-10-2023 History general Narrative - Reported Includes: Medical History in patient's chart Description Last Updated No Safety Measures 01/26/2023 Last Documented On 3 9:45PM ; [facility] Not planning to have a baby in the next 12 months 10/09/2022 Last Documented On 3 2:42PM ; [facility] Recent immunization for flu 05/27/2022 Last Documented On 3 4:00PM ; [facility] No previous suicide attempt 04/29/2022 Last Documented On 3 11:36AM ; [facility] History of asthma 04/29/2022 Last Documented On 3 1:03PM ; [facility] History of psychiatric disorders 023 Last Documented On 3 1:03PM ; [facility] History of systemic hypertension 023 Last Documented On 3 1:03PM ; [facility] No previous hospitalizations 04/29/2022 Last Documented On 3 1:03PM ; [facility] Work Phone: [phone]) 928-806612-10-2023 History general Narrative - Reported Includes: Medical History in patient's chart Description Last Updated No Safety Measures 01/26/2023 Last Documented On 3 9:45PM ; [facility] Not planning to have a baby in the next 12 months 10/09/2022 Last Documented On 3 2:42PM ; [facility] Recent immunization for flu 05/27/2022 Last Documented On 3 4:00PM ; [facility] No previous suicide attempt 04/29/2022 Last Documented On 3 11:36AM ; [facility] History of asthma 04/29/2022 Last Documented On 3 1:03PM ; [facility] History of psychiatric disorders 023 Last Documented On 3 1:03PM ; [facility] History of systemic hypertension 023 Last Documented On 3 1:03PM ; [facility] No previous hospitalizations 04/29/2022 Last Documented On 3 1:03PM ; [facility] Work Phone: 1([phone]) 416-361312-10-2023 History general Narrative - Reported Includes: Medical History in patient's chart Description Last Updated No Safety Measures 01/26/2023 Last Documented On 3 9:45PM ; [facility] Not planning to have a baby in the next 12 months 10/09/2022 Last Documented On 3 2:42PM ; [facility] Recent immunization for flu 05/27/2022 Last Documented On 3 4:00PM ; [facility] No previous suicide attempt 04/29/2022 Last Documented On 3 11:36AM ; [facility] History of asthma 04/29/2022 Last Documented On 3 1:03PM ; [facility] History of psychiatric disorders 023 Last Documented On 3 1:03PM ; [facility] History of systemic hypertension 023 Last Documented On 3 1:03PM ; [facility] No previous hospitalizations 04/29/2022 Last Documented On 3 1:03PM ; [facility] Work Phone: 1(414) 736-948112-10-2023 Instructions Includes: Instructions for all patient encounters Instructions to patient Intervention and counseling on cessation of tobacco use, 3-10 minutes Discussed medication and nicotine replacement for tobacco cessation Last Documented On 3 8:19PM ; [facility] Education and Decision Aids were provided during visit for: *P offered active and supp ortive listening, normalized emotions and feelings, and processed current stressors. ~*Discussed healthy coping skills and positive supports in patient's life. ~*Discussed proper sleep hygiene skills to implement to improve sleep. ~ Last Documented On 3 9:42PM ; [facility] Discussed nutritional needs teach healthy choices including fruits and vegetables Last Documented On 3 9:40AM ; [facility] Patient education about a pr oper diet Last Documented On 3 9:40AM ; [facility] Patient education about an a sthma action plan Last Documented On 3 10:31AM ; [facility] Discussed concerns about exe rcise : promote physical activity Last Documented On 3 9:40AM ; [facility] Not requesting contraception Last Documented On 3 9:40AM ; [facility] Discussed nutritional needs teach healthy choices including fruits and vegetables Last Documented On 3 9:08AM ; [facility] Patient education about a pr oper diet Last Documented On 3 9:08AM ; [facility] Discussed concerns about exe rcise : promote physical activity Last Documented On 3 9:08AM ; [facility] Discussed nutritional needs teach healthy choices including fruits and vegetables Last Documented On 3 9:57AM ; [facility] Patient education about a pr oper diet Last Documented On 3 9:57AM ; [facility] Discussed concerns about exe rcise : promote physical activity Last Documented On 3 9:57AM ; [facility] Discussed nutritional needs teach healthy choices including fruits and vegetables Last Documented On 3 9:00AM ; [facility] Patient education about a pr oper diet Last Documented On 3 9:00AM ; [facility] Discussed concerns about exe rcise : promote physical activity Last Documented On 3 9:00AM ; [facility] Not requesting contraception Last Documented On 3 9:00AM ; [facility] Discussed nutritional needs teach healthy choices including fruits and vegetables Last Documented On 3 10:07AM ; [facility] Patient education about a pr oper diet Last Documented On 3 10:07AM ; [facility] Discussed concerns about exe rcise : promote physical activity Last Documented On 3 10:07AM ; [facility] Not requesting contraception Last Documented On 3 10:07AM ; [facility] Discussed nutritional needs teach healthy choices including fruits and vegetables Last Documented On 3 10:02AM ; [facility] Patient education about a pr oper diet Last Documented On 3 10:02AM ; [facility] Discussed concerns about exe rcise : promote physical activity Last Documented On 3 10:02AM ; [facility] Discussed nutritional needs teach healthy choices including fruits and vegetables Last Documented On 3 2:56PM ; [facility] Patient education about a pr oper diet Last Documented On 3 2:56PM ; [facility] Discussed concerns about exe rcise : promote physical activity Last Documented On 3 2:56PM ; [facility] Discussed nutritional needs teach healthy choices including fruits and vegetables Last Documented On 3 2:11PM ; [facility] Patient education about a pr oper diet Last Documented On 3 2:11PM ; [facility] Discussed concerns about exe rcise : promote physical activity Last [facility] 3 2:11PM [facility] BHP and PA discussed patient mood, noting that her screenings were 0, but patient has reported history of bipolar, PTSD, and anxiety and has been on medications for years. BHP and PA discussed patient decision to stop medications to initiate a , noting that patient is following with psychiatry and has good supports around her. P praised patient for 6 years substance free Last Documented On 3 11:35AM ; [facility] Discussed nutritional needs teach healthy choices including fruits and vegetables Last Documented On 3 10:53AM ; [facility] Patient education about a pr oper diet Last Documented On 3 10:53AM ; [facility] Discussed concerns about exe rcise : promote physical activity Last Documented On 3 10:53AM ; [facility] Work Phone: 1([phone]) 486-577712-08-2023 Evaluation note Includes: Assessments for all patient encounters Findings Encounter Date Bipolar I disorder BH Established Patient with Dixon harris Dean [employer] 01/24/2023 Last Documented On 3 9:45PM ; [facility] [G47.30 - Sleep apnea, unspe cified] organic sleep apnea Medical Established Patient with Juanita Hatnadeemdorf PA-C 01/24/2023 Last Documented On 3 10:48AM ; [facility] [Z68.42 - Body mass index [B MS] 45.0-49.9, adult] assessment of body mass index was 46.3 kg/m2 Medical Established Patient with Juanita Hattendorf PA-C 01/24/2023 Last Documented On 3 10:48AM ; [facility] Classic migraine with aura w ith intractable migraine with status migrainosus Medical Established Patient with Juanita Hattendorf PA-C 01/24/2023 Last Documented On 3 10:48AM ; [facility] Mild persistent asthma with exacerbation Medical Established Patient with Juanita Hattendorf PA-C 01/24/2023 Last Documented On 3 10:48AM ; [facility] [Z02.1 - Encounter for pre-e mployment examination] routine pre-employment screening examination Open Access - Established with Juanita Rogerf PA-C 11/29/2022 Last Documented On 3 4:45PM ; [facility] [Z11.1 - Encounter for miguel angel marcus for respiratory tuberculosis] visit for: screening for pulmonary tuberculosis Open Access - Established with Juanita Mandydorf PA-C 11/29/2022 Last Documented On 3 4:45PM ; [facility] [Z68.42 - Body mass index [B MS] 45.0-49.9, adult] assessment of body mass index Open Access - Established with Juanita Mandydorf PA-C 11/29/2022 Last Documented On 3 4:45PM ; [facility] Encounter for Immunization Open Access - Established with Juanita Mandydorf PA-C 11/29/2022 Last Documented On 3 4:45PM ; [facility] Prediabetes Open Access - Established with Harjinder Lewis PA-C 11/29/2022 Last Documented On 3 4:45PM ; [facility] [Z68.42 - Body mass index [B MS] 45.0-49.9, adult] assessment of body mass index Open Access - Established with Juanita Lewis PA-C 11/05/2022 Last Documented On 3 12:38PM ; [facility] Acute serous otitis media of left ear Open Access - Established with Juanita Lewis PA-C 11/05/2022 Last Documented On 3 12:38PM ; [facility] [J02.9 - Acute pharyngitis, unspecified] acute pharyngitis Open Access - Established with Kb Pelaez CNP 10/17/2022 Last Documented On 3 12:51PM ; [facility] [J11.1 - Influenza due to un identified influenza virus with other respiratory manifestations] influenza with URI Open Access - Established with Kb Pelaez CNP 10/17/2022 Last Documented On 3 12:51PM ; [facility] [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) Open Access - Established with Kb Pelaez CNP 10/17/2022 Last Documented On 3 12:51PM ; [facility] [R35.0 - Frequency of mictur ition] urinary frequency Open Access - Established with Kb Pelaez CNP 10/17/2022 Last Documented On 3 12:51PM ; [facility] [Z68.42 - Body mass index [B MS] 45.0-49.9, adult] assessment of body mass index was 47.2 kg/m2 Open Access - Established with Kb Pelaez CNP 10/17/2022 Last Documented On 3 12:51PM ; [facility] Intervention and counseling on cessation of tobacco use, 3-10 minutes Discussed medication and nicotine replacement for tobacco cessation Open Access - Established with Kb Pelaez CNP 10/17/2022 Last Documented On 3 12:51PM ; [facility] Nicotine dependence Open Access - Establ ished with Kb Pelaez CNP 10/17/2022 Last Documented On 3 12:51PM ; [facility] Venipuncture was performed Open Access - Established with Kb Pelaez CNP 10/17/2022 Last Documented On 3 12:51PM ; [facility] [F17.200 - Nicotine dependen ce, unspecified, uncomplicated] nicotine dependence uncomplicated Medical Established Patient with Juanita Hattendorf PA-C 10/09/2022 Last Documented On 3 2:42PM ; [facility] [Z68.42 - Body mass index [B MS] 45.0-49.9, adult] assessment of body mass index Medical Established Patient with Juanita Hattendorf PA-C 10/09/2022 Last Documented On 3 2:42PM ; [facility] Classic migraine (with aura) with intractable migraine with status migrainosus Medical Established Patient with Juanita Hattendorf PA-C 10/09/2022 Last Documented On 3 2:42PM ; [facility] Iron deficiency anemia Medical Establish ed Patient with Juanita Hattendorf PA-C 10/09/2022 Last Documented On 3 2:42PM ; [facility] Prediabetes Medical Established Patient with Juanita Hattendorf PA-C 10/09/2022 Last Documented On 3 2:42PM ; [facility] [R73.03 - Prediabetes] prediabetes Open Access - Established with Juanita Hattendorf PA-C 09/18/2022 Last Documented On 3 2:31PM ; [facility] [Z68.42 - Body mass index [B MS] 45.0-49.9, adult] assessment of body mass index Open Access - Established with Juanita Hattendorf PA-C 09/18/2022 Last Documented On 3 2:31PM ; [facility] Classic migraine (with aura) with intractable migraine with status migrainosus Open Access - Established with Juanita Hattendorf PA-C 09/18/2022 Last Documented On 3 2:31PM ; [facility] [S80.12XD - Contusion of lef t lower leg, subsequent encounter] contusion with intact skin surface of left anterior lower leg Medical Established Patient with Juanita Galvanrf PA-C 05/27/2022 Last Documented On 3 4:00PM ; [facility] [Z68.42 - Body mass index [B MS] 45.0-49.9, adult] assessment of body mass index Medical Established Patient with Juanita Mandydorf PA-C 05/27/2022 Last Documented On 3 4:00PM ; [facility] Pain in lower leg Medical Established Patient wi th Juanita Barbaranadeemchip PA-C 05/27/2022 Last Documented On 3 4:00PM ; [facility] Iron deficiency anemia Chart Update with Juanita Mandychip PA-C 05/21/2022 Last Documented On 3 4:12PM ; [facility] [E55.9 - Vitamin D deficienc y, unspecified] vitamin D deficiency Open Access - Established with Juanita Jimenezjoann PA-C 05/17/2022 Last Documented On 3 3:44PM ; [facility] [Z68.42 - Body mass index [B MS] 45.0-49.9, adult] assessment of body mass index Open Access - Established with Juanita Lewis PA-C 05/17/2022 Last Documented On 3 3:44PM ; [facility] Iron deficiency anemia Open Access - Est ablished with Juanita Lewis PA-C 05/17/2022 Last Documented On 3 3:44PM ; [facility] Organic sleep apnea Open Access - Established wi Juanita Lewis PA-C 05/17/2022 Last Documented On 3 3:44PM ; [facility] Primary snoring Open Access - Established with Harjinder Lewis PA-C 05/17/2022 Last Documented On 3 3:44PM ; [facility] Bipolar I disorder BH Established Patient with Chavez SMITH 04/29/2022 Last Documented On 3 11:36AM ; [facility] Nicotine dependence Established Patient with Odalys Martinez LUIS 04/29/2022 Last Documented On 3 11:36AM ; [facility] [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) Open Access New Patient with Juanita Lewis PA-C 04/29/2022 Last Documented On 3 1:03PM ; [facility] [Z00.01 - Encounter for gene [facility] adult medical examination with abnormal findings] routine history and physical Open Access New Patient with Juanita Galvandorf PA-C 04/29/2022 Last Documented On 3 1:03PM ; [facility] [Z68.42 - Body mass index [B MS] 45.0-49.9, adult] assessment of body mass index Open Access New Patient with Juanita Galvandorf PA-C 04/29/2022 Last Documented On 3 1:03PM ; [facility] Diabetes Risk Test Score was five score 04/29/2022 Open Access New Patient with Juanita Hatnadeemdorf PA-C 04/29/2022 Last Documented On 3 1:03PM ; [facility] Recurrent pharyngitis streptococcus Open Access New Patient with Juanita Galvandorf PA-C 04/29/2022 Last Documented On 3 1:03PM ; [facility] Screening for Hep C Open Access New Patient with Juanita Galvandorf PA-C 04/29/2022 Last Documented On 3 1:03PM ; [facility] Screening for HIV Open Access New Patient with Harjinder Guanrf PA-C 04/29/2022 Last Documented On 3 1:03PM ; [facility] Work Phone: 1(571) 786-667212-08-2023 Progress note* Progress note Date Encounter Last Documented by 01/24/2023 Established Patient Last docu mented on 01/26/2023; 9:45 PM, Kristin SALGADO; [facility] Active Problems & Conditions - J45.31 - Asthma Mild Persistent with Exacerbation - F31.9 - Bipolar I Disorder - G43.111 - Classic Migraine with Aura with Intractable Migraine with Status Migrainosus - Z87.892 - History of Anaphylactoid Drug Reaction - D50.9 - Iron Deficiency Anemia - M79.662 - Limb Pain Lower Leg - R73.03 - Prediabetes - N96 - Recurrent Loss (Non-gravid) Chief Complaint The Chief Complaint is: 3 month follow up. History of Present Illness Susy Diaz is a 27 year old female. - Bipolar Behaviors. - Normal appetite. - Anxiety - Sleep disturbances - Energy level is good - Racing thoughts - No depression - No social isolation - - Progress: PHQ is 8. LEXY is 0 Subjective P met with patient to review screenings, discuss mood, and medications today. Patient has concerns related to her sleep issues noting she would like to be referred for a sleep study to determine if she has sleep apnea. Patient continues to have migraines as well, since she ran out of Topamax and never refilled her script. Patient would like to restart Topamax and she felt it was helpful. Patient is also interested in discussing sleep hygiene with [facility] today. Patient denies any other concerns today and denies any harmful thoughts. . Current Medication - Acetaminophen 500 MG Oral Tablet 1 tab po tid prn pain, 14 days, 0 refills - Albuterol Sulfate HFA 108 (90 Base) MCG/ACT Inhalation Aerosol Solution Aerosol, solution 25 days, 0 refills - Chelated Zinc 50 MG Oral Tablet 1 tab po qd until feeling better, 14 days, 0 refills - [facility] Fish Oil 1200 MG Oral Capsule Capsule, conventional 2 cap po qd, 30 days, 2 refills - [facility] Vitamin C 500 MG Oral Tablet 1 tab po qd, 30 days, 11 refills - EPINEPHrine 0.3 MG/0.3ML Injection Solution Auto-injector inject contents of ONE pen INTRAMUSCULARLY into thigh AT ONSET of allergic reaction, 30 days, 2 refills - EpiPen 2-Cordelia 0.3 MG/0.3ML Injection Solution Auto-injector inject into thigh at onset of allergic reaction, 30 days, 0 refills - Ferrous Sulfate 325 (65 Fe) MG Oral Tablet 30 days, 0 refills - guaiFENesin 400 MG Oral Tablet 1 tab po qid, 5 days, 0 refills - Ibuprofen 800 MG Oral Tablet 1 tab po tid prn pain, 30 days, 0 refills - OneTouch Ultra In Vitro Strip USE TO CHECK BLOOD SUGARS ONCE DAILY, 30 days, 2 refills - OneTouch UltraSoft 2 Lancets Miscellaneous Miscellaneous (not specified) use to check blood sugar once per day, 30 days, 0 refills - SUMAtriptan Succinate 50 MG Oral Tablet 1 tab at the onset of migraine, repeat in 2 hours if needed. max 2/day, 30 days, 2 refills - SUMAtriptan Succinate 50 MG Oral Tablet 1 tab at the onset of migraine, repeat in 2 hours if needed. max 2/day, 30 days, 2 refills - Symbicort 160-4.5 MCG/ACT Inhalation Aerosol 2 inhalations by mouth bid, rinse mouth thoroughly after use, 30 days, 2 refills - Topamax 25 MG Oral Tablet 1 tab po qhs, 30 days, 5 refills - Topamax 25 MG Oral Tablet 1 tab po qhs, 30 days, 2 refills - Vitamin D (Ergocalciferol) 12306 UNIT Oral Capsule Capsule, conventional 0 days, 0 refills Past Medical/Surgical History Other: No previous suicide attempt Reported: No Safety Measures. Medical: No previous hospitalizations. Immunization History: Recent immunization for flu. : Not planning to have a baby in the next 12 months. Diagnoses: Systemic hypertension. Asthma. Psychiatric disorders Surgical: - Extraction of wisdom tooth Social History Environmental Exposure: No secondhand cigarette smoke exposure. Behavioral: Not a current tobacco user. Tobacco use: Using electronic cigarettes/vaping. Alcohol: A social drinker. Drug Use: Using marijuana. Sexual: Sexually active, sexual orientation Straight (not lesbian or ferrara), gender identity Female, and control is being practiced. Allergies - cabbage Reaction: Anaphylaxis (Severe) - Dove Reaction: Skin Rashes / Eruption of skin (Moderate) - Codeine Reaction: Anaphylaxis (Severe) - grape fruit Reaction: Anaphylaxis (Severe) - Lactose intolerance Reaction: Nausea (Severe) - metformin Reaction: Anaphylaxis (Severe) - tomatoes Reaction: Anaphylaxis (Severe) - Toradol Reaction: Skin Rashes / Eruption of skin (Severe) Family History Paternal: Systemic hypertension Type 1 diabetes mellitus Psychiatric disorders Maternal: Systemic hypertension Type 2 diabetes mellitus Psychiatric disorders Oncologic disorder Fraternal: Psychiatric disorders Sororal: Psychiatric disorders Physical Findings General Appearance: - Normal Appearance. Neurological: - Cognitive Functions was Normal. - Estimated intelligence was normal. - Oriented to time, place, and person. - No hallucinations. - Judgement was not impaired. Speech: - Is Normal. Psychiatric: - Mood was concerned. - Attitude Open. Demonstrated Behavior: - Eye Contact Appropriate. Affect: - Congruent with the mood. Thought Processes: - Not impaired. Thought Content: - Revealed no impairment. - Insight was intact. - No delusions. - No suicidal ideation. - No Passive thoughts of . - No suicidal plans. - No suicidal intent. - No homicidal ideations. - No homicidal plans. - No homicidal intent. Past Medical: - No repetitive self injurious behavior. - No access to weapons / guns in home. Assessment - F31.9 - Bipolar disorder, unspecified Therapy - Brief solution-focused therapy. - Non-adherent with medications. - Plan - do not modify medication . Collaborated with patient and provider: ANDREW to restart Topamax for migraine prevention. Patient is agreeable. . Counseling/Education - No not wishing to stop using electronic cigarettes/vaping *[facility] offered active and supportive listening, normalized emotions and feelings, and processed current stressors. *Discussed healthy coping skills and positive supports in patient's life. *Discussed proper sleep hygiene skills to implement to improve sleep. . Plan - External referral/Resources provided: Sleep hygiene. *Begin taking medication (s) as prescribed. Patient is agreeable. *Utilize healthy coping skills and positive supports in patient's life. *Implement sleep hygiene skills like discussed. *Patient to follow up as needed/scheduled. . Health Reminders - Assess Tobacco Use satisfied 01/26/2023. [facility]12-08-2023 Progress note* Progress note Date Encounter Last Documented by 01/24/2023 Medical Established Patient Last documented on 01/24/2023; 10:48 AM, Juanita Lewis PA-C; [facility] Active Problems & Conditions - Asthma Mild Persistent with Exacerbation - Bipolar I Disorder - Classic Migraine with Aura with Intractable Migraine with Status Migrainosus - History of Anaphylactoid Drug Reaction - Iron Deficiency Anemia - Limb Pain Lower Leg - Prediabetes - Recurrent Loss (Non-gravid) Chief Complaint The Chief Complaint is: Patient here today to discuss sleep study, 3 month migrane medicine, pt states she s now on breathing treatment. Referred Here Not referred by urgent care clinic. Referred by emergency room [facility] on [facility] 01/[facility]. No prior encounters. - Data to be reviewed: no clinical lab tests History of Present Illness Susy Diaz is a 27 year old female. - Allergy list reviewed - Problem list reviewed - Reviewed Medications - Medication list reviewed - Feeling poorly (malaise) - Fatigue - Headache - Cough - Wheezing - Date of last menstruation 01/05/2023 - test - would not like a test Patient is a 27 yo female who presents for ER follow-up. H/o asthma, for which she was previously given Asmanex twisthaler. She did not like this inhaler, and would like to start something else. She has been sick with a URI for the past few weeks. She presented to [place] [facility] on 01/22/23 and was diagnosed with asthma exacerbation and URI - prescribed medrol dose pack, ventolin, albuterol nebs and nebulizer. She is interested in restarting maintenance rx and getting a medication for productive cough. She reports return of migraines since she ran out of topamax. She is interested in restarting. No problems with that dose. Mostly takes motrin/tylenol when she gets headaches with resolution of symptoms. Partner has witnessed periods of apnea. She is now interested in a new copy of a sleep study order. She does not feel well-rested Current Medication - Acetaminophen 500 MG Oral Tablet 1 tab po tid prn pain, 14 days, 0 refills - Albuterol Sulfate HFA 108 (90 Base) MCG/ACT Inhalation Aerosol Solution 25 days, 0 refills - [facility] Fish Oil 1200 MG Oral Capsule 2 cap po qd, 30 days, 2 refills - [facility] Vitamin C 500 MG Oral Tablet 1 tab po qd, 30 days, 11 refills - EPINEPHrine 0.3 MG/0.3ML Injection Solution Auto-injector inject contents of ONE pen INTRAMUSCULARLY into thigh AT ONSET of allergic reaction, 30 days, 2 refills - EpiPen 2-Cordelia 0.3 MG/0.3ML Injection Solution Auto-injector inject into thigh at onset of allergic reaction, 30 days, 0 refills - Ferrous Sulfate 325 (65 Fe) MG Oral Tablet 30 days, 0 refills - Ibuprofen 800 MG Oral Tablet 1 tab po tid prn pain, 30 days, 0 refills - OneTouch Ultra In Vitro Strip USE TO CHECK BLOOD SUGARS ONCE DAILY, 30 days, 2 refills - OneTouch UltraSoft 2 Lancets Miscellaneous use to check blood sugar once per day, 30 days, 0 refills - SUMAtriptan Succinate 50 MG Oral Tablet 1 tab at the onset of migraine, repeat in 2 hours if needed. max 2/day, 30 days, 2 refills - Topamax 25 MG Oral Tablet 1 tab po qhs, 30 days, 2 refills - Vitamin D (Ergocalciferol) 39653 UNIT Oral Capsule 0 days, 0 refills Past Medical/Surgical History Other: No previous suicide attempt Reported: Medical: No previous hospitalizations. Immunization History: Recent immunization for flu. : Not planning to have a baby in the next 12 months. Diagnoses: Systemic hypertension. Asthma. Psychiatric disorders Surgical: - Extraction of wisdom tooth Social History Environmental Exposure: No secondhand cigarette smoke exposure. Behavioral: Not a current tobacco user. Tobacco use: Using electronic cigarettes/vaping. Alcohol: A social drinker. Drug Use: Using marijuana. Sexual: Sexually active, sexual orientation Straight (not lesbian or ferrara), and gender identity Female. Allergies - cabbage Reaction: Anaphylaxis (Severe) - Dove Reaction: Skin Rashes / Eruption of skin (Moderate) - Codeine Reaction: Anaphylaxis (Severe) - grape fruit Reaction: Anaphylaxis (Severe) - Lactose intolerance Reaction: Nausea (Severe) - metformin Reaction: Anaphylaxis (Severe) - tomatoes Reaction: Anaphylaxis (Severe) - Toradol Reaction: Skin Rashes / Eruption of skin (Severe) Family History Paternal: Systemic hypertension Type 1 diabetes mellitus Psychiatric disorders Maternal: Systemic hypertension Type 2 diabetes mellitus Psychiatric disorders Oncologic disorder Fraternal: Psychiatric disorders Sororal: Psychiatric disorders Review Of Systems Systemic: Feeling poorly (malaise) and fatigue. No fever. Chills and aching. Head: Headache. Neck: No neck pain. Eyes: No eye symptoms. Otolaryngeal: No ear symptoms. Nasal discharge. No throat symptoms. Cardiovascular: No chest pain or discomfort and no palpitations. Pulmonary: Feeling congested in the chest, dyspnea, cough, cough, and wheezing. Gastrointestinal: Decreased appetite. No change in bowel habit. Musculoskeletal: No musculoskeletal symptoms. Neurological: No neurological symptoms. Psychological: No psychological symptoms. Skin: No skin symptoms. Physical Findings - Vitals taken 01/24/2023 09:30 am BP-Sitting R126/91 mmHg BP Cuff SizeLarge Pulse Rate-Fwmjwmz93 bpm Pulse RhythmRegular Temp-Ovtrzvgs36.1 F Umnooa76 in Dwalyq609 lbs Body Mass Index46.3 kg/m2 Body Surface Area2.3 m2 Oxygen Hmfnppejhv45 % O2 DeviceNone (Room Air) MmL566 % Vital Signs: - Systolic blood pressure < 130 mmHg. - Diastolic blood pressure > or = 90 mmHg. General Appearance: - Awake. - Alert. - Well developed. - Well nourished. - In no acute distress. Head: Appearance: - Head normocephalic. Eyes: General/bilateral: Extraocular Movements: - Normal. Sclera: - Normal. Nose: General/bilateral: Discharge: - Nasal discharge. External Deformities: - No external nose deformities. Oral Cavity: Lips: - Showed no abnormalities. Pharynx: Oropharynx: - Normal. Lymph Nodes: - No adenopathy. Lungs: - Wheezing was heard. - Respiration rhythm and depth was normal. - Clear to auscultation. Cardiovascular: Heart Rate And Rhythm: - Normal. Heart Sounds: - Normal. Abdomen: Auscultation: - Bowel sounds were normal. Palpation: - Abdominal non-tender. Neurological: - No confusion was observed. - Oriented to time, place, and person. Speech: - Normal. Gait And Stance: - Rapid fatigue of gait. - Normal. Psychiatric: Appearance: - Not tired. Demonstrated Behavior: - Appropriate behavior for patient. Affect: - Normal. Skin: - General appearance was normal. Tests Laboratory-based Chemistry: Other Laboratory Tests: Screening for sexually transmitted infections was not performed. Laboratory Studies: Pulmonary Function Tests: Value Green Range 265 Best Peak Flow 330 Low Yellow Range 165 Red Range 165 High Yellow Range 265 Estimated Peak Flow 435 l/min Percent of Estimated Peak Flow 76% Peak Flow Pre-Bronchodilator 330 l/min Educational Testing: In the Past 4 Weeks, Asthma kept me from getting much done at work/school/work? (3 Pts) Some of the Time, During the past 4 weeks, how often have you had shortness of breath? (1 Pt) More than once a day, During the past for 4 weeks, asthma symptoms woke me up at night or earlier than (1 Pt) 4 or more nights a week, During the past 4 weeks, have used rescue inhaler or nebulizer medication (1 Pt) 3 or more times per day, and Asthma control during the past 4 weeks (2 Pts) Poorly controlled. Assessment - Z68.42 - Body mass index [BMI] 45.0-49.9, adult - J45.31 - Mild persistent asthma with (acute) exacerbation - G47.30 - Sleep apnea, unspecified - G43.111 - Migraine with aura, intractable, with status migrainosus Test Conclusions Asthma Control Test (ACT), adult total score was eight 01/24/2023. Therapy - Referral to mental health team. Vaccinations - Received dose of Reported: Patient has received the COVID Vaccine Counseling/Education - Does not want to stop using current contraception - No not wishing to stop using electronic cigarettes/vaping - Discussed nutritional needs teach healthy choices including fruits and vegetables - Patient education about a proper diet - Patient education about an asthma action plan - Not requesting contraception - Discussed concerns about exercise: promote physical activity Plan StartCited- Migraine with aura, intractable, with status migrainosus Topamax 25 MG tablet 1 tab po qhs, 30 days, 5 refills SUMAtriptan Succinate 50 MG tablet 1 tab at the onset of migraine, repeat in 2 hours if needed. max 2/day, 30 days, 2 refills EndCited StartCited- Mild persistent asthma with (acute) exacerbation Symbicort 160-4.5 MCG/ACT gram 2 inhalations by mouth bid, rinse mouth thoroughly after use, 30 days, 2 refills guaiFENesin 400 MG tablet 1 tab po qid, 5 days, 0 refills EndCited StartCited- Other Chelated Zinc 50 MG tablet 1 tab po qd until feeling better, 14 days, 0 refills EndCited StartCited- Sleep apnea, unspecified Outside Diagn Tests: Other Diagnostic Test: Instructions: polysomnography [id number] EndCited restart topamax start symbicort inhaler, albuterol as needed start zinc, continue vitamin c and medrol dose pack as prescribed asthma action plan given today follow up 1 month or sooner as needed Health Reminders - ACT satisfied 01/24/2023. - Assess BMI satisfied 01/24/2023. - Assess Tobacco Use satisfied 01/24/2023. - Follow Up Plan BMI Management satisfied 01/24/2023. - LEXY-2 satisfied 01/24/2023. - PHQ9 / PHQA satisfied 01/24/2023. User Defined 1 LEXY-2 score was 0 01/24/2023, LEXY-7 score [LEXY-7] Feeling nervous, anxious or on edge? + 0 pt : Not at all, [LEXY-7] Not being able to stop or control worrying? + 0 pt : Not at all, Patient Health Questionnaire 9-Item total score was eight 01/24/2023 If you checked off problems, how difficult is it for you to do your work? + : Not difficult at all, [PHQ-9-1] Little interest or pleasure in doing things? + 1 pt : Several days, [PHQ-9-2] Feeling down, depressed, or hopeless? + 0 pt : Not at all, [PHQ-9-3] Trouble falling or staying asleep or sleeping too much? + 3 pt : Nearly every day, [PHQ-9-4] Feeling tired or having little energy? + 3 pt : Nearly every day, [PHQ-9-5] Poor appetite or overeating? + 0 pt : Not at all, [PHQ-9-6] Feeling bad about yourself-or that you are a failure + 0 pt : Not at all, [PHQ-9-7] Trouble concentrating on things such as reading the newspaper + 1 pt : Several days, [PHQ-9-8] Moving or speaking so slowly that other people have noticed. + 0 pt : Not at all, and [PHQ-9-9] Thoughts that you would be better off or hurting yourself? + 0 pt : Not at all. [facility]12-08-2023 Reason for referral (narrative)* Date Encounter Description Provider Reason for Referral 01/24/23 Established Patient Kristin Grande External referral/Resources provided - : Sleep hygiene. ~ 01/24/23 Medical Established Patient Juanita saunders PA-C Referral To Mental Health Team [facility] Work Phone: 1(719) 895-246012-08-2023 Reason for referral (narrative)* Date Encounter Description Provider Reason for Referral 04/09/23 Established Patient Kristin SMITH- Harjinder Referral To Mental Health Team 01/24/23 Established Patient Kristin SMITH- S External referral/Resources provided - : Sleep hygiene. ~ 01/24/23 Medical Established Patient Juanita saunders PA-C Referral To Mental Health Team [facility] Work Phone: 1(360) 764-890410-13-2023 Progress note* Progress note Date Encounter Last Documented by 11/29/2022 Open Access - Established Last d ocumented on 11/29/2022; 4:45 PM, Juanita Lewis PA-C; [facility] Active Problems & Conditions - Bipolar I Disorder - Classic Migraine with Aura with Intractable Migraine with Status Migrainosus - History of Anaphylactoid Drug Reaction - Iron Deficiency Anemia - Limb Pain Lower Leg - Prediabetes - Recurrent Loss (Non-gravid) Chief Complaint The Chief Complaint is: Pt here for work physical. Referred Here Not referred by urgent care clinic and not the emergency room. No prior encounters. - Data to be reviewed: no clinical lab tests History of Present Illness Susy Diaz is a 27 year old female. - Allergy list reviewed - Problem list reviewed - Reviewed Medications - Medication list reviewed - Date of last menstruation 11/11/2022 Patient is a 27 yo female who presents for work physical. No complaints. 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 She does not have a copy of her vaccine record. She needs TB test and flu vaccine today Continues to follow with OBGYN for insulin resistance Current Medication - Acetaminophen 500 MG Oral Tablet 1 tab po tid prn pain, 14 days, 0 refills - [facility] Fish Oil 1200 MG Oral Capsule 2 cap po qd, 30 days, 2 refills - EPINEPHrine 0.3 MG/0.3ML Injection Solution Auto-injector inject contents of ONE pen INTRAMUSCULARLY into thigh AT ONSET of allergic reaction, 30 days, 2 refills - EpiPen 2-Cordelia 0.3 MG/0.3ML Injection Solution Auto-injector inject into thigh at onset of allergic reaction, 30 days, 0 refills - Ferrous Sulfate 325 (65 Fe) MG Oral Tablet 30 days, 0 refills - Ibuprofen 800 MG Oral Tablet 1 tab po tid prn pain, 30 days, 0 refills - OneTouch Ultra In Vitro Strip use to check sugar once per day, 30 days, 2 refills - OneTouch UltraSoft 2 Lancets Miscellaneous use to check blood sugar once per day, 30 days, 0 refills - SUMAtriptan Succinate 50 MG Oral Tablet 1 tab at the onset of migraine, repeat in 2 hours if needed. max 2/day, 30 days, 2 refills - Topamax 25 MG Oral Tablet 1 tab po qhs, 30 days, 2 refills - Vitamin D (Ergocalciferol) 84494 UNIT Oral Capsule 0 days, 0 refills Past Medical/Surgical History Other: No previous suicide attempt Reported: Medical: No previous hospitalizations. Immunization History: Recent immunization for flu. : Not planning to have a baby in the next 12 months. Diagnoses: Systemic hypertension. Asthma. Psychiatric disorders Surgical: - Extraction of wisdom tooth Social History Environmental Exposure: No secondhand cigarette smoke exposure. Behavioral: Not a current tobacco user. Tobacco use: Using electronic cigarettes/vaping. Alcohol: A social drinker. Drug Use: Not using drugs denied by patient. Sexual: Sexually active, sexual orientation Straight (not lesbian or ferrara), and gender identity Female. Allergies - cabbage Reaction: Anaphylaxis (Severe) - Dove Reaction: Skin Rashes / Eruption of skin (Moderate) - Codeine Reaction: Anaphylaxis (Severe) - grape fruit Reaction: Anaphylaxis (Severe) - Lactose intolerance Reaction: Nausea (Severe) - metformin Reaction: Anaphylaxis (Severe) - tomatoes Reaction: Anaphylaxis (Severe) - Toradol Reaction: Skin Rashes / Eruption of skin (Severe) Family History Paternal: Systemic hypertension Type 1 diabetes mellitus Psychiatric disorders Maternal: Systemic hypertension Type 2 diabetes mellitus Psychiatric disorders Oncologic disorder Fraternal: Psychiatric disorders Sororal: Psychiatric disorders Review Of Systems Systemic: No systemic symptoms. Head: No head symptoms. Neck: No neck symptoms. Eyes: No eye symptoms. Otolaryngeal: No ear symptoms, no nasal symptoms, and no throat symptoms. Cardiovascular: No cardiovascular symptoms. Pulmonary: No pulmonary symptoms. Gastrointestinal: No gastrointestinal symptoms. Genitourinary: No genitourinary symptoms. Musculoskeletal: No musculoskeletal symptoms. Neurological: No neurological symptoms. Psychological: No psychological symptoms. Skin: No skin symptoms. Physical Findings - Vitals taken 11/29/2022 09:06 am BP-Mxypxtl224/66 mmHg Pulse Rate-Uliwehn41 bpm Temp-Oral97.4 F Zmvarr36 in Kjggod048 lbs 3.2 oz Body Mass Index46 kg/m2 Body Surface Area2.3 m2 Oxygen Ytzvcbdhft22 % Vital Signs: - Systolic blood pressure 130 - 139 mmHg. - Diastolic Blood Pressure < 80 mmHg. General Appearance: - Awake. - Alert. - Well developed. - Well nourished. - In no acute distress. Head: Appearance: - Head normocephalic. Eyes: General/bilateral: Extraocular Movements: - Normal. Sclera: - Normal. Ears: General/bilateral: Tympanic Membrane: - Examined. - Not bulging. - No retraction of tympanic membrane. - Not erythematous. Nose: General/bilateral: Discharge: - No nasal discharge. External Deformities: - No external nose deformities. Oral Cavity: Lips: - Showed no abnormalities. Lymph Nodes: - No adenopathy. Lungs: - Respiration rhythm and depth was normal. - Clear to auscultation. Cardiovascular: Heart Rate And Rhythm: - Normal. Heart Sounds: - Normal. Musculoskeletal System: General/bilateral: - Normal movement of all extremities. Neurological: - No confusion was observed. - Oriented to time, place, and person. Speech: - Normal. Balance: - Normal. Gait And Stance: - Normal. Psychiatric: - Mood normal. Appearance: - Grooming was normal. Demonstrated Behavior: - Appropriate behavior for patient. Affect: - Normal. Thought Processes: - Rate of thought was normal. - Attention demonstrated no abnormalities. Thought Content: - Impaired insight. Skin: - General appearance was normal. Assessment - Z11.1 - Encounter for screening for respiratory tuberculosis - Z68.42 - Body mass index [BMI] 45.0-49.9, adult - Z02.1 - Encounter for pre-employment examination - Z23 - Encounter for immunization - R73.03 - Prediabetes Therapy - Immunization administration, by injection, one vaccine. Vaccinations - Fluarix 0.5mL for 6 months and older Dose #2 Status: Administered Date: 11/29/2022 - Received dose of Reported: Patient has received the COVID Vaccine - Received dose of Fluarix 0.05mL (6 months and up) Counseling/Education - No not wishing to stop using electronic cigarettes/vaping - Discussed nutritional needs teach healthy choices including fruits and vegetables - Patient education about a proper diet - Discussed concerns about exercise: promote physical activity Plan StartCited- Encounter for pre-employment examination Outside Labs/General Labs: OTHER Lab: Instructions: MMR titer EndCited StartCited- Encounter for screening for respiratory tuberculosis In House Medications/Meds: TB Mantoux, (Aplisol) TB Skin Test Product In House Medications/Injection Codes: 99856 Therapeutic Prophy or Diag Injection, EACH EndCited will clear pt once titers are resulted follow up as needed Health Reminders - Assess BMI satisfied 11/29/2022. - Assess Tobacco Use satisfied 11/29/2022. - Follow Up Plan BMI Management satisfied 11/29/2022. 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 pt says she cannot keep food or water down. Referred Here Not referred by urgent care clinic and not the emergency room. No prior encounters. - Data to be reviewed: no clinical lab tests History of Present Illness Susy Diaz is a 27 year old female. - Allergy list reviewed - Problem list reviewed - Reviewed Medications - Medication list reviewed - Chills - No fever - Sinus pressure - The ears feel pressured - Nasal discharge - Sore throat - Cough - Date of last menstruation 10/17/2022 Patient presents for sick check. Seen on 10/17 when she tested positive for influenza a and was treated with Tamiflu. Now, she reports extreme nausea without vomiting, sore throat, ear pressure, nasal congestion, and nasal discharge. Afebrile today. She has been taking tylenol for her symptoms without great benefit. Sx caused her to miss work yesterday. No abx allergies. No recent abx Current Medication - Acetaminophen 500 MG Oral Tablet 1 tab po tid prn pain, 14 days, 0 refills - [facility] Fish Oil 1200 MG Oral Capsule 2 cap po qd, 30 days, 2 refills - EPINEPHrine 0.3 MG/0.3ML Injection Solution Auto-injector inject contents of ONE pen INTRAMUSCULARLY into thigh AT ONSET of allergic reaction, 30 days, 2 refills - EpiPen 2-Cordelia 0.3 MG/0.3ML Injection Solution Auto-injector inject into thigh at onset of allergic reaction, 30 days, 0 refills - Ferrous Sulfate 325 (65 Fe) MG Oral Tablet 30 days, 0 refills - Ibuprofen 800 MG Oral Tablet 1 tab po tid prn pain, 30 days, 0 refills - OneTouch Ultra In Vitro Strip use to check sugar once per day, 30 days, 2 refills - OneTouch UltraSoft 2 Lancets Miscellaneous use to check blood sugar once per day, 30 days, 0 refills - SUMAtriptan Succinate 50 MG Oral Tablet 1 tab at the onset of migraine, repeat in 2 hours if needed. max 2/day, 30 days, 2 refills - Topamax 25 MG Oral Tablet 1 tab po qhs, 30 days, 2 refills - Vitamin D (Ergocalciferol) 30420 UNIT Oral Capsule 0 days, 0 refills Past Medical/Surgical History Other: No previous suicide attempt Reported: Medical: No previous hospitalizations. : Not planning to have a baby in the next 12 months. Diagnoses: Systemic hypertension. Asthma. Psychiatric disorders Surgical: - Extraction of wisdom tooth Social History Environmental Exposure: No secondhand cigarette smoke exposure. Behavioral: Not a current tobacco user. Tobacco use: Using electronic cigarettes/vaping. Alcohol: A social drinker. Drug Use: Not using drugs denied by patient. Sexual: Sexually active, sexual orientation Straight (not lesbian or ferrara), and gender identity Female. Allergies - cabbage Reaction: Anaphylaxis (Severe) - Dove Reaction: Skin Rashes / Eruption of skin (Moderate) - Codeine Reaction: Anaphylaxis (Severe) - grape fruit Reaction: Anaphylaxis (Severe) - Lactose intolerance Reaction: Nausea (Severe) - metformin Reaction: Anaphylaxis (Severe) - tomatoes Reaction: Anaphylaxis (Severe) - Toradol Reaction: Skin Rashes / Eruption of skin (Severe) Family History Paternal: Systemic hypertension Type 1 diabetes mellitus Psychiatric disorders Maternal: Systemic hypertension Type 2 diabetes mellitus Psychiatric disorders Oncologic disorder Fraternal: Psychiatric disorders Sororal: Psychiatric disorders Review Of Systems Systemic: No fever. Chills. Head: Headache and sinus pressure. Otolaryngeal: The ears feel pressured, nasal discharge, and sore throat. Cardiovascular: No chest pain or discomfort and no palpitations. Pulmonary: No dyspnea. Cough and cough. No wheezing. Gastrointestinal: Decreased appetite and nausea. Neurological: No dizziness. Skin: No skin symptoms. Physical Findings - Vitals taken 11/05/2022 09:55 am BP-Awzjzyj514/62 mmHg Pulse Rate-Comsutc37 bpm Temp-Oral96.9 F Lyjvyw34 in Hxwowc414 lbs 12.8 oz Body Mass Index46.5 kg/m2 Body Surface Area2.3 m2 Oxygen Hueflayqwa54 % Vital Signs: - Systolic blood pressure < 130 mmHg. - Diastolic Blood Pressure < 80 mmHg. General Appearance: - Awake. - Alert. - Well developed. - Well nourished. - In no acute distress. Head: Appearance: - Head normocephalic. Eyes: General/bilateral: Extraocular Movements: - Normal. Sclera: - Normal. Ears: General/bilateral: Tympanic Membrane: - Both tympanic membranes opacified. Right Ear: Tympanic Membrane: - No bulging tympanic membrane. - Not erythematous. Left Ear: Tympanic Membrane: - Bulging tympanic membrane. - Erythematous. Nose: General/bilateral: Discharge: - Nasal discharge. Oral Cavity: Lips: - Showed no abnormalities. Pharynx: Oropharynx: - Uvula was inflamed. - Posterior pharyngeal wall was erythematous. - Inflamed. - Had no exudate. Lymph Nodes: - Cervical lymph nodes were enlarged. - Submental lymph nodes were enlarged. - Submandibular lymph nodes were enlarged. - Supraclavicular lymph nodes were not enlarged. - Preauricular lymph nodes were not enlarged. - Postauricular lymph nodes were not enlarged. Lungs: - Respiration rhythm and depth was normal. - Clear to auscultation. Cardiovascular: Heart Rate And Rhythm: - Normal. Heart Sounds: - Normal. Abdomen: Auscultation: - Bowel sounds were normal. Palpation: - Abdominal non-tender. Musculoskeletal System: General/bilateral: - Normal movement of all extremities. Neurological: - No confusion was observed. - Oriented to time, place, and person. Psychiatric: Demonstrated Behavior: - Appropriate behavior for patient. Skin: - General appearance was normal. Tests Laboratory-based Chemistry: Other Laboratory Tests: COVID 19 Antigen Test- Negative. Microbiology: Infectious Agent Antigen Detection: Enzyme immunoassay for influenza A antigen negative and for influenza B negative. Assessment - Z68.42 - Body mass index [BMI] 45.0-49.9, adult - H65.02 - Acute serous otitis media, left ear Therapy - Patient refused flu vaccine. Discussed benefits of flu vaccine with Patient. Vaccinations - Received dose of Reported: Patient has received the COVID Vaccine Counseling/Education - No not wishing to stop using electronic cigarettes/vaping - Discussed nutritional needs teach healthy choices including fruits and vegetables - Patient education about a proper diet - Discussed concerns about exercise: promote physical activity Plan StartCited- Acute serous otitis media, left ear Amoxicillin-Pot Clavulanate 875-125 MG tablet 1 tab po bid with food, 10 days, 0 refills EndCited continue otc iron - 2 tabs every other day abx for 10 days return to work tomorrow as long as no fever f/u if no improvement Health Reminders - Assess BMI satisfied 11/05/2022. - Assess Tobacco Use satisfied 11/05/2022. - Follow Up Plan BMI Management satisfied 11/05/2022. [facility]09-19-2023 Instructions Includes: Instructions for all patient encounters Instructions to patient Intervention and counseling on cessation of tobacco use, 3-10 minutes Discussed medication and nicotine replacement for tobacco cessation Last Documented On 3 8:19PM ; [facility] Education and Decision Aids were provided during visit for: Discussed nutritional needs teach healthy choices including fruits and vegetables Last Documented On 3 9:57AM ; [facility] Patient education about a pr oper diet Last Documented On 3 9:57AM ; [facility] Discussed concerns about exe rcise : promote physical activity Last Documented On 3 9:57AM ; [facility] Discussed nutritional needs teach healthy choices including fruits and vegetables Last Documented On 3 9:00AM ; [facility] Patient education about a pr oper diet Last Documented On 3 9:00AM ; [facility] Discussed concerns about exe rcise : promote physical activity Last Documented On 3 9:00AM ; [facility] Not requesting contraception Last Documented On 3 9:00AM ; [facility] Discussed nutritional needs teach healthy choices including fruits and vegetables Last Documented On 3 10:07AM ; [facility] Patient education about a pr oper diet Last Documented On 3 10:07AM ; [facility] Discussed concerns about exe rcise : promote physical activity Last Documented On 3 10:07AM ; [facility] Not requesting contraception Last Documented On 3 10:07AM ; [facility] Discussed nutritional needs teach healthy choices including fruits and vegetables Last Documented On 3 10:02AM ; [facility] Patient education about a pr oper diet Last Documented On 3 10:02AM ; [facility] Discussed concerns about exe rcise : promote physical activity Last Documented On 3 10:02AM ; [facility] Discussed nutritional needs teach healthy choices including fruits and vegetables Last Documented On 3 2:56PM ; [facility] Patient education about a pr oper diet Last Documented On 3 2:56PM ; [facility] Discussed concerns about exe rcise : promote physical activity Last Documented On 3 2:56PM ; [facility] Discussed nutritional needs teach healthy choices including fruits and vegetables Last Documented On 3 2:11PM ; [facility] Patient education about a pr oper diet Last Documented On 3 2:11PM ; [facility] Discussed concerns about exe rcise : promote physical activity Last Documented On 3 2:11PM ; [facility] BHP and PA discussed patient mood, noting that her screenings were 0, but patient has reported history of bipolar, PTSD, and anxiety and has been on medications for years. BHP and PA discussed patient decision to stop medications to initiate a , noting that patient is following with psychiatry and has good supports around her. P praised patient for 6 years substance free Last Documented On 3 11:35AM ; [facility] Discussed nutritional needs teach healthy choices including fruits and vegetables Last Documented On 3 10:53AM ; [facility] Patient education about a pr oper diet Last Documented On 3 10:53AM ; [facility] Discussed concerns about exe rcise : promote physical activity Last Documented On 3 10:53AM ; [facility] Work Phone: 1(643) 237-362209-01-2023 Instructions Includes: Instructions for all patient encounters Instructions to patient Intervention and counseling on cessation of tobacco use, 3-10 minutes Discussed medication and nicotine replacement for tobacco cessation Last Documented On 3 8:19PM ; [facility] Education and Decision Aids were provided during visit for: Discussed nutritional needs teach healthy choices including fruits and vegetables Last Documented On 3 9:00AM ; [facility] Patient education about a pr oper diet Last Documented On 3 9:00AM ; [facility] Discussed concerns about exe rcise : promote physical activity Last Documented On 3 9:00AM ; [facility] Not requesting contraception Last Documented On 3 9:00AM ; [facility] Discussed nutritional needs teach healthy choices including fruits and vegetables Last Documented On 3 10:07AM ; [facility] Patient education about a pr oper diet Last Documented On 3 10:07AM ; [facility] Discussed concerns about exe rcise : promote physical activity Last Documented On 3 10:07AM ; [facility] Not requesting contraception Last Documented On 3 10:07AM ; [facility] Discussed nutritional needs teach healthy choices including fruits and vegetables Last Documented On 3 10:02AM ; [facility] Patient education about a pr oper diet Last Documented On 3 10:02AM ; [facility] Discussed concerns about exe rcise : promote physical activity Last Documented On 3 10:02AM ; [facility] Discussed nutritional needs teach healthy choices including fruits and vegetables Last Documented On 3 2:56PM ; [facility] Patient education about a pr oper diet Last Documented On 3 2:56PM ; [facility] Discussed concerns about exe rcise : promote physical activity Last Documented On 3 2:56PM ; [facility] Discussed nutritional needs teach healthy choices including fruits and vegetables Last Documented On 3 2:11PM ; [facility] Patient education about a pr oper diet Last Documented On 3 2:11PM ; [facility] Discussed concerns about exe rcise : promote physical activity Last Documented On 3 2:11PM ; [facility]. BHP and PA discussed patient mood, noting that her screenings were 0, but patient has reported history of bipolar, PTSD, and anxiety and has been on medications for years. BHP and PA discussed patient decision to stop medications to initiate a , noting that patient is following with psychiatry and has good supports around her. BHP praised patient for 6 years substance free Last Documented On 3 11:35AM ; [facility] Discussed nutritional needs teach healthy choices including fruits and vegetables Last Documented On 3 10:53AM ; [facility] Patient education about a pr oper diet Last Documented On 3 10:53AM ; [facility] Discussed concerns about exe rcise : promote physical activity Last Documented On 3 10:53AM ; [facility] Work Phone: 1(560) 262-908408-31-2023 Evaluation note Includes: Assessments for all patient encounters Findings Encounter Date [J11.1 - Influenza due to un identified influenza virus with other respiratory manifestations] influenza with URI Open Access - Established with Kb Pelaez CNP 10/17/2022 Last Documented On 3 8:20PM ; [facility] [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) Open Access - Established with Kb Pelaez CNP 10/17/2022 Last Documented On 3 8:20PM ; [facility] [R35.0 - Frequency of mictur ition] urinary frequency Open Access - Established with Kb Pelaez CNP 10/17/2022 Last Documented On 3 8:20PM ; [facility] [Z68.42 - Body mass index [B MS] 45.0-49.9, adult] assessment of body mass index was 47.2 kg/m2 Open Access - Established with Kb Pelaez CNP 10/17/2022 Last Documented On 3 8:20PM ; [facility] Intervention and counseling on cessation of tobacco use, 3-10 minutes Discussed medication and nicotine replacement for tobacco cessation Open Access - Established with Kb Pelaez CNP 10/17/2022 Last Documented On 3 8:20PM ; [facility] Nicotine dependence Open Access - Established wi th Kb Pelaez CNP 10/17/2022 Last Documented On 3 8:20PM ; [facility] Venipuncture was performed Open Access - Established with Kb Pelaez CNP 10/17/2022 Last Documented On 3 8:20PM ; [facility] [F17.200 - Nicotine dependen ce, unspecified, uncomplicated] nicotine dependence uncomplicated Medical Established Patient with Juanita Lewis PA-C 10/09/2022 Last Documented On 3 2:42PM ; [facility] [Z68.42 - Body mass index [B MS] 45.0-49.9, adult] assessment of body mass index Medical Established Patient with Juanita Hatnadeemdorf PA-C 10/09/2022 Last Documented On 3 2:42PM ; [facility] Classic migraine (with aura) with intractable migraine with status migrainosus Medical Established Patient with Juanita Hattendorf PA-C 10/09/2022 Last Documented On 3 2:42PM ; [facility] Iron deficiency anemia Medical Establish ed Patient with Juanita Hattendorf PA-C 10/09/2022 Last Documented On 3 2:42PM ; [facility] Prediabetes Medical Established Patient with Juanita Hattendorf PA-C 10/09/2022 Last Documented On 3 2:42PM ; [facility] [R73.03 - Prediabetes] prediabetes Open Access - Established with Juanita Hattendorf PA-C 09/18/2022 Last Documented On 3 2:31PM ; [facility] [Z68.42 - Body mass index [B MS] 45.0-49.9, adult] assessment of body mass index Open Access - Established with Juanita Hattendorf PA-C 09/18/2022 Last Documented On 3 2:31PM ; [facility] Classic migraine (with aura) with intractable migraine with status migrainosus Open Access - Established with Juanita Hattendorf PA-C 09/18/2022 Last Documented On 3 2:31PM ; [facility] [S80.12XD - Contusion of lef t lower leg, subsequent encounter] contusion with intact skin surface of left anterior lower leg Medical Established Patient with Juanita Hattendorf PA-C 05/27/2022 Last Documented On 3 4:00PM ; [facility] [Z68.42 - Body mass index [B MS] 45.0-49.9, adult] assessment of body mass index Medical Established Patient with Juanita Hattendorf PA-C 05/27/2022 Last Documented On 3 4:00PM ; [facility] Pain in lower leg Medical Established Patient wi th Juanita Jimenezjoann PA-C 05/27/2022 Last Documented On 3 4:00PM ; [facility] Iron deficiency anemia Chart Update with Juanita Barbarajoann PA-C 05/21/2022 Last Documented On 3 4:12PM ; [facility] [E55.9 - Vitamin D deficienc y, unspecified] vitamin D deficiency Open Access - Established with Juanita Lewis PA-C 05/17/2022 Last Documented On 3 3:44PM ; [facility] [Z68.42 - Body mass index [B MS] 45.0-49.9, adult] assessment of body mass index Open Access - Established with Juanita Lewis PA-C 05/17/2022 Last Documented On 3 3:44PM ; [facility] Iron deficiency anemia Open Access - Est ablished with Juanita Lewis PA-C 05/17/2022 Last Documented On 3 3:44PM ; [facility] Organic sleep apnea Open Access - Established wi th Juanita Lewis PA-C 05/17/2022 Last Documented On 3 3:44PM ; [facility] Primary snoring Open Access - Established with Harjinder barlow Joshua PA-C 05/17/2022 Last Documented On 3 3:44PM ; [facility] Bipolar I disorder Established Patient with Chavez SMITH 04/29/2022 Last Documented On 3 11:36AM ; [facility] Nicotine dependence Established Patient with Odalys SMITH 04/29/2022 Last Documented On 3 11:36AM ; [facility] [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) Open Access New Patient with Juanita Jimeneznadeemchip PA-C 04/29/2022 Last Documented On 3 1:03PM ; [facility] [Z00.01 - Encounter for gene ral adult medical examination with abnormal findings] routine history and physical Open Access New Patient with Juanita Lewis PA-C 04/29/2022 Last Documented On 3 1:03PM ; [facility] [Z68.42 - Body mass index [B MS] 45.0-49.9, adult] assessment of body mass index Open Access New Patient with Juanita Lewis PA-C 04/29/2022 Last Documented On 3 1:03PM ; [facility] Diabetes Risk Test Score was five score 04/29/2022 Open Access New Patient with Juanita Lewis PA-C 04/29/2022 Last Documented On 3 1:03PM ; [facility] Recurrent pharyngitis streptococcus Open Access New Patient with Juanita Lewis PA-C 04/29/2022 Last Documented On 3 1:03PM ; [facility] Screening for Hep C Open Access New Patient with Juanita Lewis PA-C 04/29/2022 Last Documented On 3 1:03PM ; [facility] Screening for HIV Open Access New Patient with Harjinder Lewis PA-C 04/29/2022 Last Documented On 3 1:03PM ; [facility] Work Phone: 1([phone]) 572-144808-31-2023 Evaluation note Includes: Assessments for all patient encounters Findings Encounter Date [J02.9 - Acute pharyngitis, unspecified] acute pharyngitis Open Access - Established with Kb Pelaez CNP 10/17/2022 Last Documented On 3 12:51PM ; [facility] [J11.1 - Influenza due to un identified influenza virus with other respiratory manifestations] influenza with URI Open Access - Established with Kb Pelaez CNP 10/17/2022 Last Documented On 3 12:51PM ; [facility] [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) Open Access - Established with Kb Pelaez CNP 10/17/2022 Last Documented On 3 12:51PM ; [facility] [R35.0 - Frequency of mictur ition] urinary frequency Open Access - Established with Kb Pelaez CNP 10/17/2022 Last Documented On 3 12:51PM ; [facility] [Z68.42 - Body mass index [B MS] 45.0-49.9, adult] assessment of body mass index was 47.2 kg/m2 Open Access - Established with Kb Pelaez JAROD 10/17/2022 Last Documented On 3 12:51PM ; [facility] Intervention and counseling on cessation of tobacco use, 3-10 minutes Discussed medication and nicotine replacement for tobacco cessation Open Access - Established with Kb Pelaez JAROD 10/17/2022 Last Documented On 3 12:51PM ; [facility] Nicotine dependence Open Access - Established wi th Kb Pelaez JAROD 10/17/2022 Last Documented On 3 12:51PM ; [facility] Venipuncture was performed Open Access - Established with Kb Pelaez JAROD 10/17/2022 Last Documented On 3 12:51PM ; [facility] [F17.200 - Nicotine dependen ce, unspecified, uncomplicated] nicotine dependence uncomplicated Medical Established Patient with Juanita Hatnadeemdorf PA-C 10/09/2022 Last Documented On 3 2:42PM ; [facility] [Z68.42 - Body mass index [B MS] 45.0-49.9, adult] assessment of body mass index Medical Established Patient with Juanita Mandydorf PA-C 10/09/2022 Last Documented On 3 2:42PM ; [facility] Classic migraine (with aura) with intractable migraine with status migrainosus Medical Established Patient with Juanita Hattendorf PA-C 10/09/2022 Last Documented On 3 2:42PM ; [facility] Iron deficiency anemia Medical Establish ed Patient with Juanita Hattendorf PA-C 10/09/2022 Last Documented On 3 2:42PM ; [facility] Prediabetes Medical Established Patient with Juanita Hattendorf PA-C 10/09/2022 Last Documented On 3 2:42PM ; [facility] [R73.03 - Prediabetes] prediabetes Open Access - Established with Juanita Galvandorf PA-C 09/18/2022 Last Documented On 3 2:31PM ; [facility] [Z68.42 - Body mass index [B MS] 45.0-49.9, adult] assessment of body mass index Open Access - Established with Juanita Hattendorf PA-C 09/18/2022 Last Documented On 3 2:31PM ; [facility] Classic migraine (with aura) with intractable migraine with status migrainosus Open Access - Established with Juanita Hattendorf PA-C 09/18/2022 Last Documented On 3 2:31PM ; [facility] [S80.12XD - Contusion of lef t lower leg, subsequent encounter] contusion with intact skin surface of left anterior lower leg Medical Established Patient with Juanita Hattendorf PA-C 05/27/2022 Last Documented On 3 4:00PM ; [facility] [Z68.42 - Body mass index [B MS] 45.0-49.9, adult] assessment of body mass index Medical Established Patient with Juanita Hattendorf PA-C 05/27/2022 Last Documented On 3 4:00PM ; [facility] Pain in lower leg Medical Established Patient wi th Juanita Mandydorf PA-C 05/27/2022 Last Documented On 3 4:00PM ; [facility] Iron deficiency anemia Chart Update with Juanita Hattendorf PA-C 05/21/2022 Last Documented On 3 4:12PM ; [facility] [E55.9 - Vitamin D deficienc y, unspecified] vitamin D deficiency Open Access - Established with Juanita Hattendorf PA-C 05/17/2022 Last Documented On 3 3:44PM ; [facility] [Z68.42 - Body mass index [B MS] 45.0-49.9, adult] assessment of body mass index Open Access - Established with Juanita Hattendorf PA-C 05/17/2022 Last Documented On 3 3:44PM ; [facility] Iron deficiency anemia Open Access - Est ablished with Juanita Hattendorf PA-C 05/17/2022 Last Documented On 3 3:44PM ; [facility] Organic sleep apnea Open Access - Established wi th Juanita Lewis PA-C 05/17/2022 Last Documented On 3 3:44PM ; [facility] Primary snoring Open Access - Established with Harjinder Guanrf PA-C 05/17/2022 Last Documented On 3 3:44PM ; [facility] Bipolar I disorder Established Patient with N lavonne Martinez [employer] 04/29/2022 Last Documented On 3 11:36AM ; [facility] Nicotine dependence Established Patient with Odalys Martinez 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 [employer] 04/29/2022 Last Documented On 3 11:36AM ; [facility] [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) Open Access New Patient with Juanita Mandydorf PA-C 04/29/2022 Last Documented On 3 1:03PM ; [facility] [Z00.01 - Encounter for gene [facility] adult medical examination with abnormal findings] routine history and physical Open Access New Patient with Juanita Galvandorf PA-C 04/29/2022 Last Documented On 3 1:03PM ; [facility] [Z68.42 - Body mass index [B MS] 45.0-49.9, adult] assessment of body mass index Open Access New Patient with Juanita Mandydorf PA-C 04/29/2022 Last Documented On 3 1:03PM ; [facility] Diabetes Risk Test Score was five score 04/29/2022 Open Access New Patient with Juanita Hattendorf PA-C 04/29/2022 Last Documented On 3 1:03PM ; [facility] Recurrent pharyngitis streptococcus Open Access New Patient with Juanita Hattendorf PA-C 04/29/2022 Last Documented On 3 1:03PM ; [facility] Screening for Hep C Open Access New Patient with Juanita Hattendorf PA-C 04/29/2022 Last Documented On 3 1:03PM ; [facility] Screening for HIV Open Access New Patient with S yen Joshua HARTLEY 04/29/2022 Last Documented On 3 1:03PM ; [facility] Work Phone: 1(402) 520-580808-31-2023 Progress note* Progress note Date Encounter Last Documented by 10/17/2022 Open Access - Established Last d ocumented on 10/17/2022; 8:20 PM, Kb Pelaez CNP; [facility] Active Problems & Conditions - F31.9 - Bipolar I Disorder - G43.111 - Classic Migraine W/ Aura W/ Intractable Migraine with Status Migrainosus - Z87.892 - History of Anaphylactoid Drug Reaction - D50.9 - Iron Deficiency Anemia - M79.662 - Limb Pain Lower Leg - R73.03 - Prediabetes - N96 - Recurrent Loss (Non-gravid) Chief Complaint The Chief Complaint is: Pt here because she believes she has strep throat. Referred Here Not referred by urgent care clinic and not the emergency room. No prior encounters. - Data to be reviewed: no clinical lab tests History of Present Illness Susy Diaz is a 27 year old female. - Allergy list reviewed - Reviewed Medications - Medication list reviewed - Date of last menstruation 09/18/2022 - test - would not like a test Patient is a 27 year old female who presnets for sore throat for 1 day. Associated symptoms include fatigue, feeling feverish, and cough. Denies muscle aches, shortness of breath, chest pain. No known sick contact. Is 3 days overdue for menses. 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 Leaves for [place] on Friday for work Current Medication - Acetaminophen 500 MG Oral Tablet 1 tab po tid prn pain, 14 days, 0 refills - [facility] Fish Oil 1200 MG Oral Capsule 2 cap po qd, 30 days, 2 refills - EPINEPHrine 0.3 MG/0.3ML Injection Solution Auto-injector inject contents of ONE pen INTRAMUSCULARLY into thigh AT ONSET of allergic reaction, 30 days, 2 refills - EpiPen 2-Cordelia 0.3 MG/0.3ML Injection Solution Auto-injector inject into thigh at onset of allergic reaction, 30 days, 0 refills - Ibuprofen 800 MG Oral Tablet 1 tab po tid prn pain, 30 days, 0 refills - OneTouch Ultra In Vitro Strip use to check sugar once per day, 30 days, 2 refills - OneTouch UltraSoft 2 Lancets Miscellaneous use to check blood sugar once per day, 30 days, 0 refills - SUMAtriptan Succinate 50 MG Oral Tablet 1 tab at the onset of migraine, repeat in 2 hours if needed. max 2/day, 30 days, 2 refills - Topamax 25 MG Oral Tablet 1 tab po qhs, 30 days, 2 refills - Vitamin D (Ergocalciferol) 44603 UNIT Oral Capsule 0 days, 0 refills Past Medical/Surgical History Other: No previous suicide attempt Reported: Medical: No previous hospitalizations. Immunization History: Recent immunization for flu. : Not planning to have a baby in the next 12 months. Diagnoses: Systemic hypertension. Asthma. Psychiatric disorders Surgical: - Extraction of wisdom tooth Social History Environmental Exposure: Secondhand cigarette smoke exposure. Behavioral: Not a current tobacco user. Tobacco use: Using electronic cigarettes/vaping. Alcohol: A social drinker. Drug Use: Not using drugs denied by patient. Sexual: Sexually active, sexual orientation Straight (not lesbian or ferrara), and gender identity Female. No report of control being practiced. Allergies - cabbage Reaction: Anaphylaxis (Severe) - Dove Reaction: Skin Rashes / Eruption of skin (Moderate) - Codeine Reaction: Anaphylaxis (Severe) - grape fruit Reaction: Anaphylaxis (Severe) - Lactose intolerance Reaction: Nausea (Severe) - metformin Reaction: Anaphylaxis (Severe) - tomatoes Reaction: Anaphylaxis (Severe) - Toradol Reaction: Skin Rashes / Eruption of skin (Severe) Family History Paternal: Systemic hypertension Type 1 diabetes mellitus Psychiatric disorders Maternal: Systemic hypertension Type 2 diabetes mellitus Psychiatric disorders Oncologic disorder Fraternal: Psychiatric disorders Sororal: Psychiatric disorders Review Of Systems Systemic: Fatigue. No fever. Head: No headache. Otolaryngeal: No ear symptoms and no nasal symptoms. Sore throat. No oral cavity symptoms. Cardiovascular: No chest pain or discomfort and no palpitations. Pulmonary: Not feeling congested in the chest and no dyspnea. Cough. No wheezing. Gastrointestinal: Nausea. Genitourinary: Urinary symptoms. No hematuria and no change in urine volume. Urinary frequency. No dysuria. No vaginal discharge. Neurological: No dizziness. Physical Findings - Vitals taken 10/17/2022 08:56 am BP-Sitting L106/60 mmHg BP Cuff SizeLarge Pulse Rate-Lllfkep11 bpm Pulse RhythmRegular Respiration Rate22 per min Temp-Oral98.3 F Mwhpaf14 in Mxtvee096 lbs 6.4 oz Body Mass Index47.2 kg/m2 Body Surface Area2.4 m2 Oxygen Nynyjppxwe16 % O2 DeviceNone (Room Air) [id number] % Vital Signs: - Systolic blood pressure < 130 mmHg. - Diastolic Blood Pressure < 80 mmHg. General Appearance: - Awake. - Alert. - Well developed. - Well nourished. - In no acute distress. Head: Appearance: - Head normocephalic. Neck: Appearance: - Of the neck was normal. Palpation: - Of the neck revealed no abnormalities. Eyes: General/bilateral: Extraocular Movements: - Normal. Pupils: - PERRLA. Ears: General/bilateral: Outer Ear: - Normal. Tympanic Membrane: - Examined. Hearing: - No hearing abnormalities. Right Ear: - Examined. Left Ear: - Examined. Nose: General/bilateral: Discharge: - No nasal discharge. External Deformities: - No external nose deformities. Oral Cavity: - General condition was good. Salivary Glands: - Sublingual glands were normal. Pharynx: Oropharynx: - Abnormal diffuse erythema, no exudate. Lymph Nodes: - Cervical lymph nodes were not enlarged. Lungs: - Respiration rhythm and depth was normal. - Respiratory movements were normal. - Clear to auscultation. Cardiovascular: Heart Rate And Rhythm: - Normal. Heart Sounds: - Normal. Back: - No costovertebral angle tenderness. Musculoskeletal System: General/bilateral: - Normal movement of all extremities. Neurological: - Oriented to time, place, and person. - Memory was unimpaired. Speech: - Normal. Gait And Stance: - Normal. Psychiatric: Appearance: - Tired. - Clothing was appropriate. - Grooming was normal. Affect: - Normal. Skin: - General appearance was normal. Tests Urinalysis Was Performed: Routine urinalysis without microscopic examination. Protein Trace, Glucose Negative, Bilirubin Negative, Urobilinogen 0.2, Nitrite Negative, Ketones 0 Negative, and Leukocyte Estrase Negative. Blood Trace Non-Hemolyzed, Specific Ulmer 1.030, and pH 6.0. Urine clarity Cloudy and color Arina. Laboratory-based Chemistry: Other Laboratory Tests: COVID 19 Antigen Test- Negative. Screening for sexually transmitted infections was not performed. Laboratory Studies: Test: Test was negative. Vascular Procedures: Left Antecubital Space. Right Hand. Microbiology: Infectious Agent Antigen Detection: Enzyme immunoassay for influenza A antigen. Enzyme immunoassay for influenza B antigen negative. Assessment - R35.0 - Frequency of micturition - Z68.42 - Body mass index [BMI] 45.0-49.9, adult - Z01.812 - Encounter for preprocedural laboratory examination - J11.1 - Influenza due to unidentified influenza virus with other respiratory manifestations - N96 - Recurrent loss - F17.200 - Nicotine dependence, unspecified, uncomplicated - Intervention and counseling on cessation of tobacco use, 3-10 minutes Discussed medication and nicotine replacement for tobacco cessation Therapy - Patient refused flu vaccine. Discussed benefits of flu vaccine with Patient. Vaccinations - Received dose of Reported: Patient has received the COVID Vaccine Counseling/Education - Does not want to stop using current contraception - No not wishing to stop using electronic cigarettes/vaping - Discussed nutritional needs teach healthy choices including fruits and vegetables - Patient education about a proper diet - Not requesting contraception - Discussed concerns about exercise: promote physical activity Plan StartCited- Flu due to unidentified influenza virus w oth resp manifest Tamiflu 75 MG capsule twice a day, 5 days, 0 refills EndCited StartCited- Frequency of micturition In House Test/Screen/In House Lab: Urine Test, In House, Urinalysis Dipstick,In House EndCited StartCited- Recurrent loss Lab: FACTOR V MUTATION EndCited Focus on rest and hydration. Keep follow up appt on 01/08/23. Other - Patient tolerated venipuncture well; - [id number] Progress note* Progress note Date Encounter Last Documented by 10/17/2022 Open Access - Established Last d ocumented on 10/18/2022; 12:51 PM, Kb Pelaez CNP; [facility] Active Problems & Conditions - F31.9 - Bipolar I Disorder - G43.111 - Classic Migraine W/ Aura W/ Intractable Migraine with Status Migrainosus - Z87.892 - History of Anaphylactoid Drug Reaction - D50.9 - Iron Deficiency Anemia - M79.662 - Limb Pain Lower Leg - R73.03 - Prediabetes - N96 - Recurrent Loss (Non-gravid) Chief Complaint The Chief Complaint is: Pt here because she believes she has strep throat. Referred Here Not referred by urgent care clinic and not the emergency room. No prior encounters. - Data to be reviewed: no clinical lab tests History of Present Illness Susy Diaz is a 27 year old female. - Allergy list reviewed - Reviewed Medications - Medication list reviewed - Date of last menstruation 09/18/2022 - test - would not like a test Patient is a 27 year old female who presnets for sore throat for 1 day. Associated symptoms include fatigue, feeling feverish, and cough. Denies muscle aches, shortness of breath, chest pain. No known sick contact. Is 3 days overdue for menses. 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 Leaves for [place] on Friday for work Current Medication - Acetaminophen 500 MG Oral Tablet 1 tab po tid prn pain, 14 days, 0 refills - [facility] Fish Oil 1200 MG Oral Capsule 2 cap po qd, 30 days, 2 refills - EPINEPHrine 0.3 MG/0.3ML Injection Solution Auto-injector inject contents of ONE pen INTRAMUSCULARLY into thigh AT ONSET of allergic reaction, 30 days, 2 refills - EpiPen 2-Cordelia 0.3 MG/0.3ML Injection Solution Auto-injector inject into thigh at onset of allergic reaction, 30 days, 0 refills - Ibuprofen 800 MG Oral Tablet 1 tab po tid prn pain, 30 days, 0 refills - OneTouch Ultra In Vitro Strip use to check sugar once per day, 30 days, 2 refills - OneTouch UltraSoft 2 Lancets Miscellaneous use to check blood sugar once per day, 30 days, 0 refills - SUMAtriptan Succinate 50 MG Oral Tablet 1 tab at the onset of migraine, repeat in 2 hours if needed. max 2/day, 30 days, 2 refills - Topamax 25 MG Oral Tablet 1 tab po qhs, 30 days, 2 refills - Vitamin D (Ergocalciferol) 81234 UNIT Oral Capsule 0 days, 0 refills Past Medical/Surgical History Other: No previous suicide attempt Reported: Medical: No previous hospitalizations. Immunization History: Recent immunization for flu. : Not planning to have a baby in the next 12 months. Diagnoses: Systemic hypertension. Asthma. Psychiatric disorders Surgical: - Extraction of wisdom tooth Social History Environmental Exposure: Secondhand cigarette smoke exposure. Behavioral: Not a current tobacco user. Tobacco use: Using electronic cigarettes/vaping. Alcohol: A social drinker. Drug Use: Not using drugs denied by patient. Sexual: Sexually active, sexual orientation Straight (not lesbian or ferrara), and gender identity Female. No report of control being practiced. Allergies - cabbage Reaction: Anaphylaxis (Severe) - Dove Reaction: Skin Rashes / Eruption of skin (Moderate) - Codeine Reaction: Anaphylaxis (Severe) - grape fruit Reaction: Anaphylaxis (Severe) - Lactose intolerance Reaction: Nausea (Severe) - metformin Reaction: Anaphylaxis (Severe) - tomatoes Reaction: Anaphylaxis (Severe) - Toradol Reaction: Skin Rashes / Eruption of skin (Severe) Family History Paternal: Systemic hypertension Type 1 diabetes mellitus Psychiatric disorders Maternal: Systemic hypertension Type 2 diabetes mellitus Psychiatric disorders Oncologic disorder Fraternal: Psychiatric disorders Sororal: Psychiatric disorders Review Of Systems Systemic: Fatigue. No fever. Head: No headache. Otolaryngeal: No ear symptoms and no nasal symptoms. Sore throat. No oral cavity symptoms. Cardiovascular: No chest pain or discomfort and no palpitations. Pulmonary: Not feeling congested in the chest and no dyspnea. Cough. No wheezing. Gastrointestinal: Nausea. Genitourinary: Urinary symptoms. No hematuria and no change in urine volume. Urinary frequency. No dysuria. No vaginal discharge. Neurological: No dizziness. Physical Findings - Vitals taken 10/17/2022 08:56 am BP-Sitting L106/60 mmHg BP Cuff SizeLarge Pulse Rate-Ljapoms54 bpm Pulse RhythmRegular Respiration Rate22 per min Temp-Oral98.3 F Qyxzeo78 in Neatns174 lbs 6.4 oz Body Mass Index47.2 kg/m2 Body Surface Area2.4 m2 Oxygen Yugrxgvssz36 % O2 DeviceNone (Room Air) [id number] % Vital Signs: - Systolic blood pressure < 130 mmHg. - Diastolic Blood Pressure < 80 mmHg. General Appearance: - Awake. - Alert. - Well developed. - Well nourished. - In no acute distress. Head: Appearance: - Head normocephalic. Neck: Appearance: - Of the neck was normal. Palpation: - Of the neck revealed no abnormalities. Eyes: General/bilateral: Extraocular Movements: - Normal. Pupils: - PERRLA. Ears: General/bilateral: Outer Ear: - Normal. Tympanic Membrane: - Examined. Hearing: - No hearing abnormalities. Right Ear: - Examined. Left Ear: - Examined. Nose: General/bilateral: Discharge: - No nasal discharge. External Deformities: - No external nose deformities. Oral Cavity: - General condition was good. Salivary Glands: - Sublingual glands were normal. Pharynx: Oropharynx: - Abnormal diffuse erythema, no exudate. Lymph Nodes: - Cervical lymph nodes were not enlarged. Lungs: - Respiration rhythm and depth was normal. - Respiratory movements were normal. - Clear to auscultation. Cardiovascular: Heart Rate And Rhythm: - Normal. Heart Sounds: - Normal. Back: - No costovertebral angle tenderness. Musculoskeletal System: General/bilateral: - Normal movement of all extremities. Neurological: - Oriented to time, place, and person. - Memory was unimpaired. Speech: - Normal. Gait And Stance: - Normal. Psychiatric: Appearance: - Tired. - Clothing was appropriate. - Grooming was normal. Affect: - Normal. Skin: - General appearance was normal. Tests Urinalysis Was Performed: Routine urinalysis without microscopic examination. Protein Trace, Glucose Negative, Bilirubin Negative, Urobilinogen 0.2, Nitrite Negative, Ketones 0 Negative, and Leukocyte Estrase Negative. Blood Trace Non-Hemolyzed, Specific Ulmer 1.030, and pH 6.0. Urine clarity Cloudy and color Arina. Laboratory-based Chemistry: Other Laboratory Tests: COVID 19 Antigen Test- Negative. Screening for sexually transmitted infections was not performed. Laboratory Studies: Test: Test was negative. Vascular Procedures: Left Antecubital Space. Right Hand. Microbiology: Infectious Agent Antigen Detection: Enzyme immunoassay for influenza A antigen. Enzyme immunoassay for influenza B antigen negative. Assessment - R35.0 - Frequency of micturition - Z68.42 - Body mass index [BMI] 45.0-49.9, adult - Z01.812 - Encounter for preprocedural laboratory examination - J02.9 - Acute pharyngitis, unspecified - J11.1 - Influenza due to unidentified influenza virus with other respiratory manifestations - N96 - Recurrent loss - F17.200 - Nicotine dependence, unspecified, uncomplicated - Intervention and counseling on cessation of tobacco use, 3-10 minutes Discussed medication and nicotine replacement for tobacco cessation Therapy - Patient refused flu vaccine. Discussed benefits of flu vaccine with Patient. Vaccinations - Received dose of Reported: Patient has received the COVID Vaccine Counseling/Education - Does not want to stop using current contraception - No not wishing to stop using electronic cigarettes/vaping - Discussed nutritional needs teach healthy choices including fruits and vegetables - Patient education about a proper diet - Not requesting contraception - Discussed concerns about exercise: promote physical activity Plan StartCited- Acute pharyngitis, unspecified Outside Labs/Microbiology: Group a Strep DNA (GASDNA) EndCited StartCited- Flu due to unidentified influenza virus w oth resp manifest Tamiflu 75 MG capsule twice a day, 5 days, 0 refills EndCited StartCited- Frequency of micturition In House Test/Screen/In House Lab: Urine Test, In House, Urinalysis Dipstick,In House EndCited StartCited- Recurrent loss Lab: FACTOR V MUTATION EndCited Focus on rest and hydration. Keep follow up appt on 01/08/23. Other - Patient tolerated venipuncture well; - Number of attempts for venipuncture two [facility]08-31-2023 Progress note* Progress note Date Encounter Last Documented by 10/17/2022 Open Access - Established Last d ocumented on 10/18/2022; 12:51 PM, Kb Pelaez CNP; [facility] Active Problems & Conditions - F31.9 - Bipolar I Disorder - G43.111 - Classic Migraine W/ Aura W/ Intractable Migraine with Status Migrainosus - Z87.892 - History of Anaphylactoid Drug Reaction - D50.9 - Iron Deficiency Anemia - M79.662 - Limb Pain Lower Leg - R73.03 - Prediabetes - N96 - Recurrent Loss (Non-gravid) Chief Complaint The Chief Complaint is: Pt here because she believes she has strep throat. Referred Here Not referred by urgent care clinic and not the emergency room. No prior encounters. - Data to be reviewed: no clinical lab tests History of Present Illness Susy Diaz is a 27 year old female. - Allergy list reviewed - Reviewed Medications - Medication list reviewed - Date of last menstruation 09/18/2022 - test - would not like a test Patient is a 27 year old female who presnets for sore throat for 1 day. Associated symptoms include fatigue, feeling feverish, and cough. Denies muscle aches, shortness of breath, chest pain. No known sick contact. Is 3 days overdue for menses. 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 Leaves for [place] on Friday for work Current Medication - Acetaminophen 500 MG Oral Tablet 1 tab po tid prn pain, 14 days, 0 refills - [facility] Fish Oil 1200 MG Oral Capsule 2 cap po qd, 30 days, 2 refills - EPINEPHrine 0.3 MG/0.3ML Injection Solution Auto-injector inject contents of ONE pen INTRAMUSCULARLY into thigh AT ONSET of allergic reaction, 30 days, 2 refills - EpiPen 2-Cordelia 0.3 MG/0.3ML Injection Solution Auto-injector inject into thigh at onset of allergic reaction, 30 days, 0 refills - Ibuprofen 800 MG Oral Tablet 1 tab po tid prn pain, 30 days, 0 refills - OneTouch Ultra In Vitro Strip use to check sugar once per day, 30 days, 2 refills - OneTouch UltraSoft 2 Lancets Miscellaneous use to check blood sugar once per day, 30 days, 0 refills - SUMAtriptan Succinate 50 MG Oral Tablet 1 tab at the onset of migraine, repeat in 2 hours if needed. max 2/day, 30 days, 2 refills - Topamax 25 MG Oral Tablet 1 tab po qhs, 30 days, 2 refills - Vitamin D (Ergocalciferol) 16254 UNIT Oral Capsule 0 days, 0 refills Past Medical/Surgical History Other: No previous suicide attempt Reported: Medical: No previous hospitalizations. Immunization History: Recent immunization for flu. : Not planning to have a baby in the next 12 months. Diagnoses: Systemic hypertension. Asthma. Psychiatric disorders Surgical: - Extraction of wisdom tooth Social History Environmental Exposure: Secondhand cigarette smoke exposure. Behavioral: Not a current tobacco user. Tobacco use: Using electronic cigarettes/vaping. Alcohol: A social drinker. Drug Use: Not using drugs denied by patient. Sexual: Sexually active, sexual orientation Straight (not lesbian or ferrara), and gender identity Female. No report of control being practiced. Allergies - cabbage Reaction: Anaphylaxis (Severe) - Dvoe Reaction: Skin Rashes / Eruption of skin (Moderate) - Codeine Reaction: Anaphylaxis (Severe) - grape fruit Reaction: Anaphylaxis (Severe) - Lactose intolerance Reaction: Nausea (Severe) - metformin Reaction: Anaphylaxis (Severe) - tomatoes Reaction: Anaphylaxis (Severe) - Toradol Reaction: Skin Rashes / Eruption of skin (Severe) Family History Paternal: Systemic hypertension Type 1 diabetes mellitus Psychiatric disorders Maternal: Systemic hypertension Type 2 diabetes mellitus Psychiatric disorders Oncologic disorder Fraternal: Psychiatric disorders Sororal: Psychiatric disorders Review Of Systems Systemic: Fatigue. No fever. Head: No headache. Otolaryngeal: No ear symptoms and no nasal symptoms. Sore throat. No oral cavity symptoms. Cardiovascular: No chest pain or discomfort and no palpitations. Pulmonary: Not feeling congested in the chest and no dyspnea. Cough. No wheezing. Gastrointestinal: Nausea. Genitourinary: Urinary symptoms. No hematuria and no change in urine volume. Urinary frequency. No dysuria. No vaginal discharge. Neurological: No dizziness. Physical Findings - Vitals taken 10/17/2022 08:56 am BP-Sitting L106/60 mmHg BP Cuff SizeLarge Pulse Rate-Xihmwwq54 bpm Pulse RhythmRegular Respiration Rate22 per min Temp-Oral98.3 F Vcnbns44 in Ukwuhr941 lbs 6.4 oz Body Mass Index47.2 kg/m2 Body Surface Area2.4 m2 Oxygen Oxxqlwpasi03 % O2 DeviceNone (Room Air) [id number] % Vital Signs: - Systolic blood pressure < 130 mmHg. - Diastolic Blood Pressure < 80 mmHg. General Appearance: - Awake. - Alert. - Well developed. - Well nourished. - In no acute distress. Head: Appearance: - Head normocephalic. Neck: Appearance: - Of the neck was normal. Palpation: - Of the neck revealed no abnormalities. Eyes: General/bilateral: Extraocular Movements: - Normal. Pupils: - PERRLA. Ears: General/bilateral: Outer Ear: - Normal. Tympanic Membrane: - Examined. Hearing: - No hearing abnormalities. Right Ear: - Examined. Left Ear: - Examined. Nose: General/bilateral: Discharge: - No nasal discharge. External Deformities: - No external nose deformities. Oral Cavity: - General condition was good. Salivary Glands: - Sublingual glands were normal. Pharynx: Oropharynx: - Abnormal diffuse erythema, no exudate. Lymph Nodes: - Cervical lymph nodes were not enlarged. Lungs: - Respiration rhythm and depth was normal. - Respiratory movements were normal. - Clear to auscultation. Cardiovascular: Heart Rate And Rhythm: - Normal. Heart Sounds: - Normal. Back: - No costovertebral angle tenderness. Musculoskeletal System: General/bilateral: - Normal movement of all extremities. Neurological: - Oriented to time, place, and person. - Memory was unimpaired. Speech: - Normal. Gait And Stance: - Normal. Psychiatric: Appearance: - Tired. - Clothing was appropriate. - Grooming was normal. Affect: - Normal. Skin: - General appearance was normal. Tests Urinalysis Was Performed: Routine urinalysis without microscopic examination. Protein Trace, Glucose Negative, Bilirubin Negative, Urobilinogen 0.2, Nitrite Negative, Ketones 0 Negative, and Leukocyte Estrase Negative. Blood Trace Non-Hemolyzed, Specific Ulmer 1.030, and pH 6.0. Urine clarity Cloudy and color Arina. Laboratory-based Chemistry: Other Laboratory Tests: COVID 19 Antigen Test- Negative. Screening for sexually transmitted infections was not performed. Laboratory Studies: Test: Test was negative. Vascular Procedures: Left Antecubital Space. Right Hand. Microbiology: Infectious Agent Antigen Detection: Enzyme immunoassay for influenza A antigen. Enzyme immunoassay for influenza B antigen negative. Assessment - R35.0 - Frequency of micturition - Z68.42 - Body mass index [BMI] 45.0-49.9, adult - Z01.812 - Encounter for preprocedural laboratory examination - J02.9 - Acute pharyngitis, unspecified - J11.1 - Influenza due to unidentified influenza virus with other respiratory manifestations - N96 - Recurrent loss - F17.200 - Nicotine dependence, unspecified, uncomplicated - Intervention and counseling on cessation of tobacco use, 3-10 minutes Discussed medication and nicotine replacement for tobacco cessation Therapy - Patient refused flu vaccine. Discussed benefits of flu vaccine with Patient. Vaccinations - Received dose of Reported: Patient has received the COVID Vaccine Counseling/Education - Does not want to stop using current contraception - No not wishing to stop using electronic cigarettes/vaping - Discussed nutritional needs teach healthy choices including fruits and vegetables - Patient education about a proper diet - Not requesting contraception - Discussed concerns about exercise: promote physical activity Plan StartCited- Acute pharyngitis, unspecified Outside Labs/Microbiology: Group a Strep DNA (GASDNA) EndCited StartCited- Flu due to unidentified influenza virus w oth resp manifest Tamiflu 75 MG capsule twice a day, 5 days, 0 refills EndCited StartCited- Frequency of micturition In House Test/Screen/In House Lab: Urine Test, In House, Urinalysis Dipstick,In House EndCited StartCited- Recurrent loss Lab: FACTOR V MUTATION EndCited Focus on rest and hydration. Keep follow up appt on 01/08/23. Other - Patient tolerated venipuncture well; - Number of attempts for venipuncture two [facility]08-31-2023 Progress note* Progress note Date Encounter Last Documented by 10/17/2022 Open Access - Established Last d ocumented on 10/18/2022; 12:51 PM, Kb Pelaez; [facility] Active Problems & Conditions - F31.9 - Bipolar I Disorder - G43.111 - Classic Migraine W/ Aura W/ Intractable Migraine with Status Migrainosus - Z87.892 - History of Anaphylactoid Drug Reaction - D50.9 - Iron Deficiency Anemia - M79.662 - Limb Pain Lower Leg - R73.03 - Prediabetes - N96 - Recurrent Loss (Non-gravid) Chief Complaint The Chief Complaint is: Pt here because she believes she has strep throat. Referred Here Not referred by urgent care clinic and not the emergency room. No prior encounters. - Data to be reviewed: no clinical lab tests History of Present Illness Susy Diaz is a 27 year old female. - Allergy list reviewed - Reviewed Medications - Medication list reviewed - Date of last menstruation 09/18/2022 - test - would not like a test Patient is a 27 year old female who presnets for sore throat for 1 day. Associated symptoms include fatigue, feeling feverish, and cough. Denies muscle aches, shortness of breath, chest pain. No known sick contact. Is 3 days overdue for menses. 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 Leaves for [place] on Friday for work Current Medication - Acetaminophen 500 MG Oral Tablet 1 tab po tid prn pain, 14 days, 0 refills - [facility] Oil 1200 MG Oral Capsule 2 cap po qd, 30 days, 2 refills - EPINEPHrine 0.3 MG/0.3ML Injection Solution Auto-injector inject contents of ONE pen INTRAMUSCULARLY into thigh AT ONSET of allergic reaction, 30 days, 2 refills - EpiPen 2-Cordelia 0.3 MG/0.3ML Injection Solution Auto-injector inject into thigh at onset of allergic reaction, 30 days, 0 refills - Ibuprofen 800 MG Oral Tablet 1 tab po tid prn pain, 30 days, 0 refills - OneTouch Ultra In Vitro Strip use to check sugar once per day, 30 days, 2 refills - OneTouch UltraSoft 2 Lancets Miscellaneous use to check blood sugar once per day, 30 days, 0 refills - SUMAtriptan Succinate 50 MG Oral Tablet 1 tab at the onset of migraine, repeat in 2 hours if needed. max 2/day, 30 days, 2 refills - Topamax 25 MG Oral Tablet 1 tab po qhs, 30 days, 2 refills - Vitamin D (Ergocalciferol) 88439 UNIT Oral Capsule 0 days, 0 refills Past Medical/Surgical History Other: No previous suicide attempt Reported: Medical: No previous hospitalizations. Immunization History: Recent immunization for flu. : Not planning to have a baby in the next 12 months. Diagnoses: Systemic hypertension. Asthma. Psychiatric disorders Surgical: - Extraction of wisdom tooth Social History Environmental Exposure: Secondhand cigarette smoke exposure. Behavioral: Not a current tobacco user. Tobacco use: Using electronic cigarettes/vaping. Alcohol: A social drinker. Drug Use: Not using drugs denied by patient. Sexual: Sexually active, sexual orientation Straight (not lesbian or ferrara), and gender identity Female. No report of control being practiced. Allergies - cabbage Reaction: Anaphylaxis (Severe) - Dove Reaction: Skin Rashes / Eruption of skin (Moderate) - Codeine Reaction: Anaphylaxis (Severe) - grape fruit Reaction: Anaphylaxis (Severe) - Lactose intolerance Reaction: Nausea (Severe) - metformin Reaction: Anaphylaxis (Severe) - tomatoes Reaction: Anaphylaxis (Severe) - Toradol Reaction: Skin Rashes / Eruption of skin (Severe) Family History Paternal: Systemic hypertension Type 1 diabetes mellitus Psychiatric disorders Maternal: Systemic hypertension Type 2 diabetes mellitus Psychiatric disorders Oncologic disorder Fraternal: Psychiatric disorders Sororal: Psychiatric disorders Review Of Systems Systemic: Fatigue. No fever. Head: No headache. Otolaryngeal: No ear symptoms and no nasal symptoms. Sore throat. No oral cavity symptoms. Cardiovascular: No chest pain or discomfort and no palpitations. Pulmonary: Not feeling congested in the chest and no dyspnea. Cough. No wheezing. Gastrointestinal: Nausea. Genitourinary: Urinary symptoms. No hematuria and no change in urine volume. Urinary frequency. No dysuria. No vaginal discharge. Neurological: No dizziness. Physical Findings - Vitals taken 10/17/2022 08:56 am BP-Sitting L106/60 mmHg BP Cuff SizeLarge Pulse Rate-Qjjnjwu50 bpm Pulse RhythmRegular Respiration Rate22 per min Temp-Oral98.3 F Fejsvt71 in Ipqjwa983 lbs 6.4 oz Body Mass Index47.2 kg/m2 Body Surface Area2.4 m2 Oxygen Plrpnlhkqi28 % O2 DeviceNone (Room Air) TbJ094 % Vital Signs: - Systolic blood pressure < 130 mmHg. - Diastolic Blood Pressure < 80 mmHg. General Appearance: - Awake. - Alert. - Well developed. - Well nourished. - In no acute distress. Head: Appearance: - Head normocephalic. Neck: Appearance: - Of the neck was normal. Palpation: - Of the neck revealed no abnormalities. Eyes: General/bilateral: Extraocular Movements: - Normal. Pupils: - PERRLA. Ears: General/bilateral: Outer Ear: - Normal. Tympanic Membrane: - Examined. Hearing: - No hearing abnormalities. Right Ear: - Examined. Left Ear: - Examined. Nose: General/bilateral: Discharge: - No nasal discharge. External Deformities: - No external nose deformities. Oral Cavity: - General condition was good. Salivary Glands: - Sublingual glands were normal. Pharynx: Oropharynx: - Abnormal diffuse erythema, no exudate. Lymph Nodes: - Cervical lymph nodes were not enlarged. Lungs: - Respiration rhythm and depth was normal. - Respiratory movements were normal. - Clear to auscultation. Cardiovascular: Heart Rate And Rhythm: - Normal. Heart Sounds: - Normal. Back: - No costovertebral angle tenderness. Musculoskeletal System: General/bilateral: - Normal movement of all extremities. Neurological: - Oriented to time, place, and person. - Memory was unimpaired. Speech: - Normal. Gait And Stance: - Normal. Psychiatric: Appearance: - Tired. - Clothing was appropriate. - Grooming was normal. Affect: - Normal. Skin: - General appearance was normal. Tests Urinalysis Was Performed: Routine urinalysis without microscopic examination. Protein Trace, Glucose Negative, Bilirubin Negative, Urobilinogen 0.2, Nitrite Negative, Ketones 0 Negative, and Leukocyte Estrase Negative. Blood Trace Non-Hemolyzed, Specific Ulmer 1.030, and pH 6.0. Urine clarity Cloudy and color Arina. Laboratory-based Chemistry: Other Laboratory Tests: COVID 19 Antigen Test- Negative. Screening for sexually transmitted infections was not performed. Laboratory Studies: Test: Test was negative. Vascular Procedures: Left Antecubital Space. Right Hand. Microbiology: Infectious Agent Antigen Detection: Enzyme immunoassay for influenza A antigen. Enzyme immunoassay for influenza B antigen negative. Assessment - R35.0 - Frequency of micturition - Z68.42 - Body mass index [BMI] 45.0-49.9, adult - Z01.812 - Encounter for preprocedural laboratory examination - J02.9 - Acute pharyngitis, unspecified - J11.1 - Influenza due to unidentified influenza virus with other respiratory manifestations - N96 - Recurrent loss - F17.200 - Nicotine dependence, unspecified, uncomplicated - Intervention and counseling on cessation of tobacco use, 3-10 minutes Discussed medication and nicotine replacement for tobacco cessation Therapy - Patient refused flu vaccine. Discussed benefits of flu vaccine with Patient. Vaccinations - Received dose of Reported: Patient has received the COVID Vaccine Counseling/Education - Does not want to stop using current contraception - No not wishing to stop using electronic cigarettes/vaping - Discussed nutritional needs teach healthy choices including fruits and vegetables - Patient education about a proper diet - Not requesting contraception - Discussed concerns about exercise: promote physical activity Plan StartCited- Acute pharyngitis, unspecified Outside Labs/Microbiology: Group a Strep DNA (GASDNA) EndCited StartCited- Flu due to unidentified influenza virus w oth resp manifest Tamiflu 75 MG capsule twice a day, 5 days, 0 refills EndCited StartCited- Frequency of micturition In House Test/Screen/In House Lab: Urine Test, In House, Urinalysis Dipstick,In House EndCited StartCited- Recurrent loss Lab: FACTOR V MUTATION EndCited Focus on rest and hydration. Keep follow up appt on 01/08/23. Other - Patient tolerated venipuncture well; - Number of attempts for venipuncture two [facility]08-31-2023 Instructions Includes: Instructions for all patient encounters Instructions to patient Intervention and counseling on cessation of tobacco use, 3-10 minutes Discussed medication and nicotine replacement for tobacco cessation Last Documented On 3 8:19PM ; [facility] Education and Decision Aids were provided during visit for: Discussed nutritional needs teach healthy choices including fruits and vegetables Last Documented On 3 9:00AM ; [facility] Patient education about a pr oper diet Last Documented On 3 9:00AM ; [facility] Discussed concerns about exe rcise : promote physical activity Last Documented On 3 9:00AM ; [facility] Not requesting contraception Last Documented On 3 9:00AM ; [facility] Discussed nutritional needs teach healthy choices including fruits and vegetables Last Documented On 3 10:07AM ; [facility] Patient education about a pr oper diet Last Documented On 3 10:07AM ; [facility] Discussed concerns about exe rcise : promote physical activity Last Documented On 3 10:07AM ; [facility] Not requesting contraception Last Documented On 3 10:07AM ; [facility] Discussed nutritional needs teach healthy choices including fruits and vegetables Last Documented On 3 10:02AM ; [facility] Patient education about a pr oper diet Last Documented On 3 10:02AM ; [facility] Discussed concerns about exe rcise : promote physical activity Last Documented On 3 10:02AM ; [facility] Discussed nutritional needs teach healthy choices including fruits and vegetables Last Documented On 3 2:56PM ; [facility] Patient education about a pr oper diet Last Documented On 3 2:56PM ; [facility] Discussed concerns about exe rcise : promote physical activity Last Documented On 3 2:56PM ; [facility] Discussed nutritional needs teach healthy choices including fruits and vegetables Last Documented On 3 2:11PM ; [facility] Patient education about a pr oper diet Last Documented On 3 2:11PM ; [facility] Discussed concerns about exe rcise : promote physical activity Last Documented On 3 2:11PM ; [facility] and PA discussed patient mood, noting that her screenings were 0, but patient has reported history of bipolar, PTSD, and anxiety and has been on medications for years. [facility]HP and PA discussed patient decision to stop medications to initiate a , noting that patient is following with psychiatry and has good supports around her. [facility] praised patient for 6 years substance free Last Documented On 3 11:35AM ; [facility] Discussed nutritional needs teach healthy choices including fruits and vegetables Last Documented On 3 10:53AM ; [facility] Patient education about a pr oper diet Last Documented On 3 10:53AM ; [facility] Discussed concerns about exe rcise : promote physical activity Last Documented On 3 10:53AM ; [facility] Work Phone: 1(140) 452-707708-23-2023 Evaluation note Includes: Assessments for all patient encounters Findings Encounter Date [F17.200 - Nicotine dependen ce, unspecified, uncomplicated] nicotine dependence uncomplicated Medical Established Patient with Juanita Mandydorf PA-C 10/09/2022 Last Documented On 3 2:42PM ; [facility] [Z68.42 - Body mass index [B MS] 45.0-49.9, adult] assessment of body mass index Medical Established Patient with Juanita Hattendorf PA-C 10/09/2022 Last Documented On 3 2:42PM ; [facility] Classic migraine (with aura) with intractable migraine with status migrainosus Medical Established Patient with Juanita Hattendorf PA-C 10/09/2022 Last Documented On 3 2:42PM ; [facility] Iron deficiency anemia Medical Establish ed Patient with Juanita Hattendorf PA-C 10/09/2022 Last Documented On 3 2:42PM ; [facility] Prediabetes Medical Established Patient with Juanita Hattendorf PA-C 10/09/2022 Last Documented On 3 2:42PM ; [facility] [R73.03 - Prediabetes] prediabetes Open Access - Established with Juanita Mandydorf PA-C 09/18/2022 Last Documented On 3 2:31PM ; [facility] [Z68.42 - Body mass index [B MS] 45.0-49.9, adult] assessment of body mass index Open Access - Established with Juanita Hattendorf PA-C 09/18/2022 Last Documented On 3 2:31PM ; [facility] Classic migraine (with aura) with intractable migraine with status migrainosus Open Access - Established with Juanita Hattendorf PA-C 09/18/2022 Last Documented On 3 2:31PM ; [facility] [S80.12XD - Contusion of lef t lower leg, subsequent encounter] contusion with intact skin surface of left anterior lower leg Medical Established Patient with Juanita Barbaranadeemrf PA-C 05/27/2022 Last Documented On 3 4:00PM ; [facility] [Z68.42 - Body mass index [B MS] 45.0-49.9, adult] assessment of body mass index Medical Established Patient with Juanita Galvandorf PA-C 05/27/2022 Last Documented On 3 4:00PM ; [facility] Pain in lower leg Medical Established Patient wi Juanita Joshua PA-C 05/27/2022 Last Documented On 3 4:00PM ; [facility] Iron deficiency anemia Chart Update with Juaniat Lewis PA-C 05/21/2022 Last Documented On 3 4:12PM ; [facility] [E55.9 - Vitamin D deficienc y, unspecified] vitamin D deficiency Open Access - Established with Juanita Lewis PA-C 05/17/2022 Last Documented On 3 3:44PM ; [facility] [Z68.42 - Body mass index [B MS] 45.0-49.9, adult] assessment of body mass index Open Access - Established with Juanita Lewis PA-C 05/17/2022 Last Documented On 3 3:44PM ; [facility] Iron deficiency anemia Open Access - Est ablished with Juanita Lewis PA-C 05/17/2022 Last Documented On 3 3:44PM ; [facility] Organic sleep apnea Open Access - Established wi Juanita Lewis PA-C 05/17/2022 Last Documented On 3 3:44PM ; [facility] Primary snoring Open Access - Established with Harjinder Lewis PA-C 05/17/2022 Last Documented On 3 3:44PM ; [facility] Bipolar I disorder BH Established Patient with Chavez SMITH 04/29/2022 Last Documented On 3 11:36AM ; [facility] Nicotine dependence Established Patient with Odalys SMITH 04/29/2022 Last Documented On 3 11:36AM ; [facility] [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) Open Access New Patient with Juanita Lewis PA-C 04/29/2022 Last Documented On 3 1:03PM ; [facility] [Z00.01 - Encounter for gene [facility] adult medical examination with abnormal findings] routine history and physical Open Access New Patient with Junaita Lewis PA-C 04/29/2022 Last Documented On 3 1:03PM ; [facility] [Z68.42 - Body mass index [B MS] 45.0-49.9, adult] assessment of body mass index Open Access New Patient with Juanita Lewis PA-C 04/29/2022 Last Documented On 3 1:03PM ; [facility] Diabetes Risk Test Score was five score 04/29/2022 Open Access New Patient with Juanita Lewis PA-C 04/29/2022 Last Documented On 3 1:03PM ; [facility] Recurrent pharyngitis streptococcus Open Access New Patient with Juanita Lewis PA-C 04/29/2022 Last Documented On 3 1:03PM ; [facility] Screening for Hep C Open Access New Patient with Juanita Lewis PA-C 04/29/2022 Last Documented On 3 1:03PM ; [facility] Screening for HIV Open Access New Patient with Harjinder Lewis PA-C 04/29/2022 Last Documented On 3 1:03PM ; [facility] Work Phone: 1(675) 340-121508-23-2023 History general Narrative - Reported Includes: Medical History in patient's chart Description Last Updated Not planning to have a baby in the next 12 months 10/09/2022 Last Documented On 3 2:42PM ; [facility] Recent immunization for flu 05/27/2022 Last Documented On 3 4:00PM ; [facility] No previous suicide attempt 04/29/2022 Last Documented On 3 11:36AM ; [facility] History of asthma 04/29/2022 Last Documented On 3 1:03PM ; [facility] History of psychiatric disorders 023 Last Documented On 3 1:03PM ; [facility] History of systemic hypertension 023 Last Documented On 3 1:03PM ; [facility] No previous hospitalizations 04/29/2022 Last Documented On 3 1:03PM ; [facility] Work Phone: [phone]) 966-666708-23-2023 History general Narrative - Reported Includes: Medical History in patient's chart Description Last Updated Not planning to have a baby in the next 12 months 10/09/2022 Last Documented On 3 2:42PM ; [facility] Recent immunization for flu 05/27/2022 Last Documented On 3 4:00PM ; [facility] No previous suicide attempt 04/29/2022 Last Documented On 3 11:36AM ; [facility] History of asthma 04/29/2022 Last Documented On 3 1:03PM ; [facility] History of psychiatric disorders 023 Last Documented On 3 1:03PM ; [facility] History of systemic hypertension 023 Last Documented On 3 1:03PM ; [facility] No previous hospitalizations 04/29/2022 Last Documented On 3 1:03PM ; [facility] Work Phone: [phone]) 425-921908-23-2023 History general Narrative - Reported Includes: Medical History in patient's chart Description Last Updated Not planning to have a baby in the next 12 months 10/09/2022 Last Documented On 3 2:42PM ; [facility] Recent immunization for flu 05/27/2022 Last Documented On 3 4:00PM ; [facility] No previous suicide attempt 04/29/2022 Last Documented On 3 11:36AM ; [facility] History of asthma 04/29/2022 Last Documented On 3 1:03PM ; [facility] History of psychiatric disorders 023 Last Documented On 3 1:03PM ; [facility] History of systemic hypertension 023 Last Documented On 3 1:03PM ; [facility] No previous hospitalizations 04/29/2022 Last Documented On 3 1:03PM ; [facility] Work Phone: 1([phone]) 655-796208-23-2023 History general Narrative - Reported Includes: Medical History in patient's chart Description Last Updated Not planning to have a baby in the next 12 months 10/09/2022 Last Documented On 3 2:42PM ; [facility] Recent immunization for flu 05/27/2022 Last Documented On 3 4:00PM ; [facility] No previous suicide attempt 04/29/2022 Last Documented On 3 11:36AM ; [facility] History of asthma 04/29/2022 Last Documented On 3 1:03PM ; [facility] History of psychiatric disorders 023 Last Documented On 3 1:03PM ; [facility] History of systemic hypertension 023 Last Documented On 3 1:03PM ; [facility] No previous hospitalizations 04/29/2022 Last Documented On 3 1:03PM ; [facility] Work Phone: [phone]) 318-971808-23-2023 Progress note* Progress note Date Encounter Last Documented by 10/09/2022 Medical Established Patient Last documented on 10/10/2022; 2:42 PM, Juanita Lewis PA-C; [facility] Active Problems & Conditions - Bipolar I Disorder - Classic Migraine W/ Aura W/ Intractable Migraine with Status Migrainosus - History of Anaphylactoid Drug Reaction - Iron Deficiency Anemia - Limb Pain Lower Leg - Prediabetes - Recurrent Loss (Non-gravid) Chief Complaint The Chief Complaint is: Pt here because she would like to have her iron and insulin levels checked. Referred Here Not referred by urgent care clinic and not the emergency room. No prior encounters. - Data to be reviewed: no clinical lab tests History of Present Illness Susy Diaz is a 27 year old female. - Allergy list reviewed - Reviewed Medications - Medication list reviewed - Fatigue - Date of last menstruation 09/18/2022 Pt is a 27 yo caucaisan female with prediabetes, migraines, and extensive allergies who presents desiring lab draws. She reports that she has made diet/exercise changes and is interested in rechecking her insulin resistance level. Also has been fatigued and wants to get an updated iron level. Migraines have been occurring less often since starting topamax, and they almost fully resolve with 1 tab of sumatriptan. Estimates 1 headache per week, but is happy that they no longer cause debilitation Current Medication - Acetaminophen 500 MG Oral Tablet 1 tab po tid prn pain, 14 days, 0 refills - [facility] Fish Oil 1200 MG Oral Capsule 2 cap po qd, 30 days, 2 refills - EPINEPHrine 0.3 MG/0.3ML Injection Solution Auto-injector inject contents of ONE pen INTRAMUSCULARLY into thigh AT ONSET of allergic reaction, 30 days, 2 refills - EpiPen 2-Cordelia 0.3 MG/0.3ML Injection Solution Auto-injector inject into thigh at onset of allergic reaction, 30 days, 0 refills - Ibuprofen 800 MG Oral Tablet 1 tab po tid prn pain, 30 days, 0 refills - OneTouch Ultra In Vitro Strip use to check sugar once per day, 30 days, 2 refills - OneTouch UltraSoft 2 Lancets Miscellaneous use to check blood sugar once per day, 30 days, 0 refills - SUMAtriptan Succinate 50 MG Oral Tablet 1 tab at the onset of migraine, repeat in 2 hours if needed. max 2/day, 30 days, 0 refills - Topamax 25 MG Oral Tablet 1 tab po qhs, 30 days, 0 refills - Vitamin D (Ergocalciferol) 18795 UNIT Oral Capsule 0 days, 0 refills Past Medical/Surgical History Other: No previous suicide attempt Reported: Medical: No previous hospitalizations. : Not planning to have a baby in the next 12 months. Diagnoses: Systemic hypertension. Asthma. Psychiatric disorders Surgical: - Extraction of wisdom tooth Social History Environmental Exposure: No secondhand cigarette smoke exposure. Tobacco use: Using electronic cigarettes/vaping. Alcohol: Not using alcohol. Drug Use: Not using drugs denied by patient. Sexual: Sexually active, sexual orientation Straight (not lesbian or ferrara), and gender identity Female. Allergies - cabbage Reaction: Anaphylaxis (Severe) - Dove Reaction: Skin Rashes / Eruption of skin (Moderate) - Codeine Reaction: Anaphylaxis (Severe) - grape fruit Reaction: Anaphylaxis (Severe) - Lactose intolerance Reaction: Nausea (Severe) - metformin Reaction: Anaphylaxis (Severe) - tomatoes Reaction: Anaphylaxis (Severe) - Toradol Reaction: Skin Rashes / Eruption of skin (Severe) Family History Paternal: Systemic hypertension Type 1 diabetes mellitus Psychiatric disorders Maternal: Systemic hypertension Type 2 diabetes mellitus Psychiatric disorders Oncologic disorder Fraternal: Psychiatric disorders Sororal: Psychiatric disorders Review Of Systems Systemic: Fatigue. Head: No head symptoms. Neck: No neck symptoms. Eyes: No eye symptoms. Cardiovascular: No cardiovascular symptoms. Pulmonary: No pulmonary symptoms. Endocrine: No endocrine symptoms. Neurological: No neurological symptoms. Psychological: No psychological symptoms. Skin: No skin symptoms. Physical Findings - Vitals taken 10/09/2022 10:03 am BP-Sitting L122/72 mmHg BP Cuff SizeLarge Pulse Rate-Hgabcwv67 bpm Temp-Frpnzlgp62.4 F Xrrpfl79 in Ciielh844 lbs Body Mass Index47.5 kg/m2 Body Surface Area2.4 m2 Oxygen Wtbckzteue50 % Vital Signs: - Systolic blood pressure < 130 mmHg. - Diastolic Blood Pressure < 80 mmHg. General Appearance: - Awake. - Alert. - Well developed. - Well nourished. - In no acute distress. Head: Appearance: - Head normocephalic. Eyes: General/bilateral: Extraocular Movements: - Normal. Sclera: - Normal. Nose: General/bilateral: Discharge: - No nasal discharge. Oral Cavity: Lips: - Showed no abnormalities. Lungs: - Respiration rhythm and depth was normal. - Clear to auscultation. Cardiovascular: Heart Sounds: - Normal. Heart Borders: - By percussion, heart size and position were normal. Musculoskeletal System: General/bilateral: - Normal movement of all extremities. Neurological: - No confusion was observed. - Oriented to time, place, and person. Gait And Stance: - Normal. Psychiatric: Appearance: - Not tired. - Grooming was normal. Demonstrated Behavior: - Appropriate behavior for patient. Skin: - General appearance was normal. Assessment - Z68.42 - Body mass index [BMI] 45.0-49.9, adult - R73.03 - Prediabetes - G43.111 - Migraine with aura, intractable, with status migrainosus - F17.200 - Nicotine dependence, unspecified, uncomplicated - D50.9 - Iron deficiency anemia, unspecified Therapy - Patient refused flu vaccine. Discussed benefits of flu vaccine with Patient. Vaccinations - Did not receive dose of Reported: Patient has not received the Covid Vaccine Counseling/Education - No not wishing to stop using electronic cigarettes/vaping - Discussed nutritional needs teach healthy choices including fruits and vegetables - Patient education about a proper diet - Not requesting contraception - Discussed concerns about exercise: promote physical activity Plan StartCited- Iron deficiency anemia, unspecified Lab: CBC Lab: FERRITIN Lab: TIBC Lab: TOTAL INSULIN EndCited StartCited- Migraine with aura, intractable, with status migrainosus SUMAtriptan Succinate 50 MG tablet 1 tab at the onset of migraine, repeat in 2 hours if needed. max 2/day, 30 days, 2 refills Topamax 25 MG tablet 1 tab po qhs, 30 days, 2 refills EndCited StartCited- Personal history of anaphylaxis EpiPen 2-Cordelia 0.3 MG/0.3ML each inject into thigh at onset of allergic reaction, 30 days, 0 refills EndCited continue topamax for migraine prevention. at onset of migraine: sumatriptan + ibuprofen + benadryl if 2nd dose needed 2 hrs later: sumatriptan + acetaminophen drink plenty of water, and repeat lab draw wear sunscreen while living in [place]! Notes - Patient is not interested in the COVID-19 vaccination at this time. Health Reminders - Assess BMI satisfied 10/09/2022. - Assess Tobacco Use satisfied 10/09/2022. - Follow Up Plan BMI Management satisfied 10/09/2022. [facility]08-23-2023 Instructions Includes: Instructions for all patient encounters Education and Decision Aids were provided during visit for: Discussed nutritional needs teach healthy choices including fruits and vegetables Last Documented On 3 10:07AM ; [facility] Patient education about a pr oper diet Last Documented On 3 10:07AM ; [facility] Discussed concerns about exe rcise : promote physical activity Last Documented On 3 10:07AM ; [facility] Not requesting contraception Last Documented On 3 10:07AM ; [facility] Discussed nutritional needs teach healthy choices including fruits and vegetables Last Documented On 3 10:02AM ; [facility] Patient education about a pr oper diet Last Documented On 3 10:02AM ; [facility] Discussed concerns about exe rcise : promote physical activity Last Documented On 3 10:02AM ; [facility] Discussed nutritional needs teach healthy choices including fruits and vegetables Last Documented On 3 2:56PM ; [facility] Patient education about a pr oper diet Last Documented On 3 2:56PM ; [facility] Discussed concerns about exe rcise : promote physical activity Last Documented On 3 2:56PM ; [facility] Discussed nutritional needs teach healthy choices including fruits and vegetables Last Documented On 3 2:11PM ; [facility] Patient education about a pr oper diet Last Documented On 3 2:11PM ; [facility] Discussed concerns about exe rcise : promote physical activity Last Documented On 3 2:11PM ; [facility] BHP educated patient on HPWO model of care. BHP and PA discussed patient mood, noting that her screenings were 0, but patient has reported history of bipolar, PTSD, and anxiety and has been on medications for years. BHP and PA discussed patient decision to stop medications to initiate a , noting that patient is following with psychiatry and has good supports around her. P praised patient for 6 years substance free Last Documented On 3 11:35AM ; [facility] Discussed nutritional needs teach healthy choices including fruits and vegetables Last Documented On 3 10:53AM ; [facility] Patient education about a pr oper diet Last Documented On 3 10:53AM ; [facility] Discussed concerns about exe rcise : promote physical activity Last Documented On 3 10:53AM ; [facility] Work Phone: 1(675) 982-966508-02-2023 Evaluation note Includes: Assessments for all patient encounters Findings Encounter Date [R73.03 - Prediabetes] prediabetes Open Access - Established with Juanita Lewis PA-C 09/18/2022 Last Documented On 3 2:31PM ; [facility] [Z68.42 - Body mass index [B MS] 45.0-49.9, adult] assessment of body mass index Open Access - Established with Juanita Lewis PA-C 09/18/2022 Last Documented On 3 2:31PM ; [facility] Classic migraine (with aura) with intractable migraine with status migrainosus Open Access - Established with Juanita Lewis PA-C 09/18/2022 Last Documented On 3 2:31PM ; [facility] [S80.12XD - Contusion of lef t lower leg, subsequent encounter] contusion with intact skin surface of left anterior lower leg Medical Established Patient with Juanita Lewis PA-C 05/27/2022 Last Documented On 3 4:00PM ; [facility] [Z68.42 - Body mass index [B MS] 45.0-49.9, adult] assessment of body mass index Medical Established Patient with Juanita Lewis PA-C 05/27/2022 Last Documented On 3 4:00PM ; [facility] Pain in lower leg Medical Established Patient wi th Juanita Lewis PA-C 05/27/2022 Last Documented On 3 4:00PM ; [facility] Iron deficiency anemia Chart Update with Juanita Lewis PA-C 05/21/2022 Last Documented On 3 4:12PM ; [facility] [E55.9 - Vitamin D deficienc y, unspecified] vitamin D deficiency Open Access - Established with Juanita Lewis PA-C 05/17/2022 Last Documented On 3 3:44PM ; [facility] [Z68.42 - Body mass index [B MS] 45.0-49.9, adult] assessment of body mass index Open Access - Established with Juanita Guanmaico PA-C 05/17/2022 Last Documented On 3 3:44PM ; [facility] Iron deficiency anemia Open Access - Est ablished with Juanita Guanmaico PA-C 05/17/2022 Last Documented On 3 3:44PM ; [facility] Organic sleep apnea Open Access - Established wi Juanita Mandychip PA-C 05/17/2022 Last Documented On 3 3:44PM ; [facility] Primary snoring Open Access - Established with Harjinder andersonmarymakayla Joshua PA-C 05/17/2022 Last Documented On 3 3:44PM ; [facility] Bipolar I disorder Established Patient with Chavez SMITH 04/29/2022 Last Documented On 3 11:36AM ; [facility] Nicotine dependence Established Patient with Odalys SMITH 04/29/2022 Last Documented On 3 11:36AM ; [facility] [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) Open Access New Patient with Juanita Guanrf PA-C 04/29/2022 Last Documented On 3 1:03PM ; [facility] [Z00.01 - Encounter for gene [facility] adult medical examination with abnormal findings] routine history and physical Open Access New Patient with Juanita Lewis PA-C 04/29/2022 Last Documented On 3 1:03PM ; [facility] [Z68.42 - Body mass index [B MS] 45.0-49.9, adult] assessment of body mass index Open Access New Patient with Juanita Lewis PA-C 04/29/2022 Last Documented On 3 1:03PM ; [facility] Diabetes Risk Test Score was five score 04/29/2022 Open Access New Patient with Juanita Lewis PA-C 04/29/2022 Last Documented On 3 1:03PM ; [facility] Recurrent pharyngitis streptococcus Open Access New Patient with Juanita Lewis PA-C 04/29/2022 Last Documented On 3 1:03PM ; [facility] Screening for Hep C Open Access New Patient with Juanita Lewis PA-C 04/29/2022 Last Documented On 3 1:03PM ; [facility] Screening for HIV Open Access New Patient with Harjinder Lewis PA-C 04/29/2022 Last Documented On 3 1:03PM ; [facility] Work Phone: [phone]) 155-387108-02-2023 Progress note* Progress note Date Encounter Last Documented by 09/18/2022 Open Access - Established Last d ocumented on 09/18/2022; 2:31 PM, Juanita MORALES-Blair; [facility] Active Problems & Conditions - Bipolar I Disorder - Classic Migraine W/ 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 pt also states she has been having more frequent migraines.. reporting atleast 2 a month for the last 2-3 months. Referred Here Not referred by urgent care clinic and not the emergency room. No prior encounters. - Data to be reviewed: no clinical lab tests History of Present Illness Susy Diaz is a 27 year old female. - Allergy list reviewed - Problem list reviewed - Reviewed Medications - Medication list reviewed - Headache - Date of last menstruation 08/25/2022 Patient is a 27 yo female who presents to office for med check. A1c today is 5.8%, prediabetes. She reports her OBGYN diagnosed her as being insulin resistant but she did not start metformin due to anaphylactic reaction. She has been making dietary changes including decreasing soda intake - no soda yesterday. Also measuring portion sizes. She has been going for a walk 1 block and back, once a day. She plans to increase the distance over time. She also reports increase in frontal headaches that occur at least 2 times per month, 2-4 days in duration. Treats with tylenol with minimal improvement. Associated with nausea, vomiting, vision changes, light and sound sensitivity. She has had to present to the ER for symptom resolution. She has not tried any headache medication in the past. She has failed Effexor for mood in the past. Previously on propranolol for anxiety, which she discontinued at the beginning of this year. Headaches started to return in June Current Medication - Acetaminophen 500 MG Oral Tablet 1 tab po tid prn pain, 14 days, 0 refills - EpiPen 2-Cordelia 0.3 MG/0.3ML Injection Solution Auto-injector inject into thigh at onset of allergic reaction, 30 days, 0 refills - Ibuprofen 800 MG Oral Tablet 1 tab po tid prn pain, 14 days, 0 refills - Vitamin D (Ergocalciferol) 69905 UNIT Oral Capsule 0 days, 0 refills Past Medical/Surgical History Other: No previous suicide attempt Reported: Medical: No previous hospitalizations. : Planning to have a baby in the next 12 months. Diagnoses: Systemic hypertension. Asthma. Psychiatric disorders Surgical: - Extraction of wisdom tooth Social History Environmental Exposure: No secondhand cigarette smoke exposure. Behavioral: Not a current tobacco user. Tobacco use: Using electronic cigarettes/vaping. Alcohol: A social drinker. Drug Use: Not using drugs denied by patient. Sexual: Sexually active, sexual orientation Straight (not lesbian or ferrara), and gender identity Female. Allergies - cabbage Reaction: Anaphylaxis (Severe) - Dove Reaction: Skin Rashes / Eruption of skin (Moderate) - Codeine Reaction: Anaphylaxis (Severe) - grape fruit Reaction: Anaphylaxis (Severe) - Lactose intolerance Reaction: Nausea (Severe) - metformin Reaction: Anaphylaxis (Severe) - tomatoes Reaction: Anaphylaxis (Severe) - Toradol Reaction: Skin Rashes / Eruption of skin (Severe) Family History Paternal: Systemic hypertension Type 1 diabetes mellitus Psychiatric disorders Maternal: Systemic hypertension Type 2 diabetes mellitus Psychiatric disorders Oncologic disorder Fraternal: Psychiatric disorders Sororal: Psychiatric disorders Review Of Systems Systemic: No systemic symptoms. Head: Headache frontal which is throbbing or pounding, and lasting for one to three days. Headache not precipitated. Headache worse with light, with noise, accompanied by nausea, and by vomiting. Neck: No neck pain. Eyes: No eye symptoms. Otolaryngeal: No ear symptoms, no nasal symptoms, and no throat symptoms. Cardiovascular: No cardiovascular symptoms. Pulmonary: No pulmonary symptoms. Gastrointestinal: No gastrointestinal symptoms. Genitourinary: No genitourinary symptoms. Musculoskeletal: No musculoskeletal symptoms. Neurological: No neurological symptoms. Psychological: No psychological symptoms. Skin: No skin symptoms. Physical Findings - Vitals taken 09/18/2022 09:57 am BP-Ppfpaiv239/66 mmHg Pulse Rate-Uprzcju45 bpm Temp-Oral97.6 F Rgqird18 in Abltur952 lbs Body Mass Index47.5 kg/m2 Body Surface Area2.4 m2 Oxygen Wdfwxztfqg03 % Vital Signs: - Systolic blood pressure < 130 mmHg. - Diastolic Blood Pressure < 80 mmHg. General Appearance: - Awake. - Alert. - Well developed. - Well nourished. - In no acute distress. Head: Appearance: - Head normocephalic. Eyes: General/bilateral: Extraocular Movements: - Normal. Sclera: - Normal. Nose: General/bilateral: Discharge: - No nasal discharge. External Deformities: - No external nose deformities. Oral Cavity: Lips: - Showed no abnormalities. Pharynx: Oropharynx: - Normal. Lungs: - Respiration rhythm and depth was normal. - Clear to auscultation. Cardiovascular: Heart Rate And Rhythm: - Normal. Heart Sounds: - Normal. Musculoskeletal System: General/bilateral: - Normal movement of all extremities. Neurological: - No confusion was observed. - Oriented to time, place, and person. Speech: - Normal. Gait And Stance: - Normal. Psychiatric: Appearance: - Grooming was normal. Demonstrated Behavior: - Appropriate behavior for patient. Skin: - General appearance was normal. Tests Blood Analysis: Hemoglobin Studies: ValueDate Blood hemoglobin A1c 5.8%09/18/2022 Hemoglobin A1c level < 7.0%. Blood Endocrine Laboratory Tests: Value Blood glucose level by fingerstick Fasting 125 mg/dl Assessment - Z68.42 - Body mass index [BMI] 45.0-49.9, adult - R73.03 - Prediabetes - G43.111 - Migraine with aura, intractable, with status migrainosus Previous Tests Pathology: Cytology: Cervical Pap smear 08/15/2022. Therapy - Patient refused flu vaccine. Discussed benefits of flu vaccine with Patient. Vaccinations - 1st Dose MODERNA COVID-19 Vaccine Dose #1 Status: Prev Hist Date: 11/04/2020 - 1st Dose MODERNA COVID-19 Vaccine Dose #2 Status: Prev Hist Date: 10/09/2021 - Fluarix 0.5mL for 6 months and older Dose #1 Status: Prev Hist Date: 12/01/2017 - Influenza 0.25 ml (Under 36 months) Fluzone Dose #1 Status: Prev Hist Date: 01/03/2017 - Influenza 0.25 ml (Under 36 months) Fluzone Dose #2 Status: Prev Hist Date: 12/19/2017 - Tdap (Boostrix) Dose #1 Status: Prev Hist Date: 11/01/2017 - Received dose of Reported: Patient has received the COVID Vaccine Counseling/Education - No not wishing to stop using electronic cigarettes/vaping - Discussed nutritional needs teach healthy choices including fruits and vegetables - Patient education about a proper diet - Discussed concerns about exercise: promote physical activity Plan StartCited- Migraine with aura, intractable, with status migrainosus Topamax 25 MG tablet 1 tab po qhs, 30 days, 0 refills SUMAtriptan Succinate 50 MG tablet 1 tab at the onset of migraine, repeat in 2 hours if needed. max 2/day, 30 days, 0 refills Ibuprofen 800 MG tablet 1 tab po tid prn pain, 30 days, 0 refills EndCited StartCited- Other [facility] Fish Oil 1200 MG capsule 2 cap po qd, 30 days, 2 refills EndCited StartCited- Prediabetes OneTouch UltraSoft 2 Lancets each use to check blood sugar once per day, 30 days, 0 refills OneTouch Ultra strip use to check sugar once per day, 30 days, 2 refills EndCited keep headache journal start topamax at bedtime for migraine prevention at onset of migraine - take sumatriptan and ibuprofen continue checking blood sugar follow up 1 month migraine check Health Reminders - Assess BMI satisfied 09/18/2022. - Assess Tobacco Use satisfied 09/18/2022. - Follow Up Plan BMI Management satisfied 09/18/2022. - Hemoglobin A1c Yearly satisfied 09/18/2022. - PAP satisfied 08/15/2022. - PHQ9 / PHQA satisfied 09/18/2022. User Defined 1 PHQ-9: total score was four 09/18/2022 If you checked off problems, how difficult is it for you to do your work? + : Not difficult at all, [PHQ-9-1] Little interest or pleasure in doing things? + 0 pt : Not at all, [PHQ-9-2] Feeling down, depressed, or hopeless? + 0 pt : Not at all, [PHQ-9-3] Trouble falling or staying asleep or sleeping too much? + 1 pt : Several days, [PHQ-9-4] Feeling tired or having little energy? + 0 pt : Not at all, [PHQ-9-5] Poor appetite or overeating? + 1 pt : Several days, [PHQ-9-6] Feeling bad about yourself-or that you are a failure + 0 pt : Not at all, [PHQ-9-7] Trouble concentrating on things such as reading the newspaper + 0 pt : Not at all, [PHQ-9-8] Moving or speaking so slowly that other people have noticed. + 2 pt : More than half the days, and [PHQ-9-9] Thoughts that you would be better off or hurting yourself? + 0 pt : Not at all. [facility]2023 Instructions Includes: Instructions for all patient encounters Education and Decision Aids were provided during visit for: Discussed nutritional needs teach healthy choices including fruits and vegetables Last Documented On 10:02AM ; [facility] Patient education about a pr oper diet Last Documented On 3 10:02AM ; [facility] Discussed concerns about exe rcise : promote physical activity Last Documented On 3 10:02AM ; [facility] Discussed nutritional needs teach healthy choices including fruits and vegetables Last Documented On 3 2:56PM ; [facility] Patient education about a pr oper diet Last Documented On 3 2:56PM ; [facility] Discussed concerns about exe rcise : promote physical activity Last Documented On 3 2:56PM ; [facility] Discussed nutritional needs teach healthy choices including fruits and vegetables Last Documented On 3 2:11PM ; [facility] Patient education about a pr oper diet Last Documented On 3 2:11PM ; [facility] Discussed concerns about exe rcise : promote physical activity Last [facility]ed On 3 2:11PM [facility] BHP and PA discussed patient mood, noting that her screenings were 0, but patient has reported history of bipolar, PTSD, and anxiety and has been on medications for years. BHP and PA discussed patient decision to stop medications to initiate a , noting that patient is following with psychiatry and has good supports around her. [facility] praised patient for 6 years substance free Last Documented On 3 11:35AM ; [facility] Discussed nutritional needs teach healthy choices including fruits and vegetables Last Documented On 3 10:53AM ; [facility] Patient education about a pr oper diet Last Documented On 3 10:53AM ; [facility] Discussed concerns about exe rcise : promote physical activity Last Documented On 3 10:53AM ; [facility] Work Phone: 1([phone]) 684-862908-02-2023 Instructions Includes: Instructions for all patient encounters Education and Decision Aids were provided during visit for: Discussed nutritional needs teach healthy choices including fruits and vegetables Last Documented On 3 10:02AM ; [facility] Patient education about a pr oper diet Last Documented On 3 10:02AM ; [facility] Discussed concerns about exe rcise : promote physical activity Last Documented On 3 10:02AM ; [facility] Discussed nutritional needs teach healthy choices including fruits and vegetables Last Documented On 3 2:56PM ; [facility] Patient education about a pr oper diet Last Documented On 3 2:56PM ; [facility] Discussed concerns about exe rcise : promote physical activity Last Documented On 3 2:56PM ; [facility] Discussed nutritional needs teach healthy choices including fruits and vegetables Last Documented On 3 2:11PM ; [facility] Patient education about a pr oper diet Last Documented On 3 2:11PM ; [facility] Discussed concerns about exe rcise : promote physical activity Last Documented On 3 2:11PM ; [facility] BHP and PA discussed patient mood, noting that her screenings were 0, but patient has reported history of bipolar, PTSD, and anxiety and has been on medications for years. BHP and PA discussed patient decision to stop medications to initiate a , noting that patient is following with psychiatry and has good supports around her. [facility] praised patient for 6 years substance free Last Documented On 3 11:35AM ; [facility] Discussed nutritional needs teach healthy choices including fruits and vegetables Last Documented On 3 10:53AM ; [facility] Patient education about a pr oper diet Last Documented On 3 10:53AM ; [facility] Discussed concerns about exe rcise : promote physical activity Last Documented On 3 10:53AM ; [facility] Work Phone: 1([phone]) 403-718604-10-2023 History general Narrative - Reported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 Systemic: No systemic symptoms. Head: No headache. Neck: No neck pain. Eyes: No eye symptoms. Otolaryngeal: No ear symptoms and no nasal symptoms. Snoring and sore throat. Cardiovascular: No chest pain or discomfort and no palpitations. Pulmonary: Not feeling congested in the chest, no dyspnea, and no wheezing. Gastrointestinal: No gastrointestinal symptoms. Genitourinary: No genitourinary symptoms. Musculoskeletal: No musculoskeletal symptoms. Neurological: No neurological symptoms. Psychological: Anxiety, depression, and sleep apnea. Skin: No skin symptoms. Physical Findings - Vitals taken 05/17/2022 02:06 pm BP-Sitting L116/68 mmHg BP Cuff SizeLarge Pulse Rate-Jbppgpq661 bpm Temp-Nnzbxatg19.1 F Oaahpc28 in Ojcdvm111 lbs 6.4 oz Body Mass Index47.2 kg/m2 Body Surface Area2.4 m2 Oxygen Hpoqckvnws01 % General Appearance: - Awake. - Alert. - Well developed. - Well nourished. - In no acute distress. Head: Appearance: - Head normocephalic. Eyes: General/bilateral: Extraocular Movements: - Normal. Pupils: - Reactive to light. Lungs: - Respiration rhythm and depth was normal. - Clear to auscultation. Cardiovascular: Heart Rate And Rhythm: - Normal. Heart Sounds: - Normal. Musculoskeletal System: General/bilateral: - Normal movement of all extremities. Neurological: - No confusion was observed. - Oriented to time, place, and person. Speech: - Normal. Gait And Stance: - Normal. Psychiatric: - Mood normal. Demonstrated Behavior: - Appropriate behavior for patient. Affect: - Normal. Skin: - General appearance was normal. Assessment - Z68.42 - Body mass index [BMI] 45.0-49.9, adult - R06.83 - Snoring - G47.30 - Sleep apnea, unspecified - E55.9 - Vitamin D deficiency, unspecified - D50.9 - Iron deficiency anemia, unspecified Therapy - Patient refused flu vaccine. Discussed benefits of flu vaccine with Patient. Vaccinations - Received dose of Reported: Patient has received the COVID Vaccine Counseling/Education - No not wishing to stop using electronic cigarettes/vaping - Discussed nutritional needs teach healthy choices including fruits and vegetables - Patient education about a proper diet - Discussed concerns about exercise: promote physical activity Plan StartCited- Iron deficiency anemia, unspecified Ferrous Sulfate 325 (65 Fe) MG tablet 2 tab po qod, 30 days, 2 refills EndCited StartCited- Other Fish Oil 1200 MG capsule 2 cap po qd, 30 days, 2 refills EndCited StartCited- Sleep apnea, unspecified Outside Diagn Tests: Other Diagnostic Test: Instructions: CPT 54733: polysomnography, rule out SUNDAR EndCited StartCited- Vitamin D deficiency, unspecified Vitamin D (Ergocalciferol) 1.25 MG (01438 UT) capsule 1 cap po once per week for 3 months, 28 days, 2 refills EndCited schedule sleep study start iron, fish oil, and vitamin d supplements increase healthy fat in diet increase exercise follow up 3 months or sooner as needed Practice Management Systolic blood pressure < 130 mmHg and diastolic < 80 mmHg diastolic < 80 mmHg. Health Reminders - Assess BMI satisfied 05/17/2022. - Assess Tobacco Use satisfied 05/17/2022. - Follow Up Plan BMI Management satisfied 05/17/2022. [facility]03-13-2023 History general Narrative - Reported Includes: Medical History in patient's chart Description Last Updated Planning to have a baby in the next 12 m [facility] 04/29/2022 Last Documented On 3 1:03PM ; [facility] No previous suicide attempt 04/29/2022 Last Documented On 3 11:36AM ; [facility] History of asthma 04/29/2022 Last Documented On 3 1:03PM ; [facility] History of psychiatric disorders 023 Last Documented On 3 1:03PM ; [facility] History of systemic hypertension 023 Last Documented On 3 1:03PM ; [facility] No previous hospitalizations 04/29/2022 Last Documented On 3 1:03PM ; [facility] Work Phone: 1(688) 918-854103-13-2023 History general Narrative - Reported Includes: Medical History in patient's chart Description Last Updated Planning to have a baby in the next 12 m [facility] 04/29/2022 Last Documented On 3 1:03PM ; [facility] No previous suicide attempt 04/29/2022 Last Documented On 3 11:36AM ; [facility] History of asthma 04/29/2022 Last Documented On 3 1:03PM ; [facility] History of psychiatric disorders 023 Last Documented On 3 1:03PM ; [facility] History of systemic hypertension 023 Last Documented On 3 1:03PM ; [facility] No previous hospitalizations 04/29/2022 Last Documented On 3 1:03PM ; [facility] Work Phone: 1(332) 408-906303-13-2023 Progress note* Progress note Date Encounter Last Documented by 04/29/2022 [facility] ER Patient Last docu mented on 04/29/2022; 11:36 AM, Odalys SMITH; [facility] Active Problems & Conditions - F31.9 - Bipolar I Disorder - Z87.892 - 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 History of Present Illness Susy Zamudio is a 26 year old female. - Anxiety with persistent worry - With anticipation of misfortune to self or others - About medical condition - With fear of losing self-control - With chest pain or discomfort - With rapid heartbeat - With choking or smothering sensations - With dizziness or unsteady feelings - Depression as a chronic condition - Alternating with periods of elation - Moderate - Relieved by medication - Difficulty falling asleep - Middle-night awakening - Nightmares Patient reports history of bipolar disorder, PTSD, anxiety, has been treated by psychiatry for this, but patient reports stopped medications 2 months ago to try getting . Patient reports that her last medication regimine worked best, trileptal, zoloft, prazosin, trazadone, and propranolol. Patient is following at [facility] for mental health, sees Dr Barragan, has appt later this month to further discuss medications that may be safe in , but patient reports currently feeling stable and has family/loved ones close to her that are monitoring her mood and behavior as well. 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 Patient reports that she quit smoking cigarettes, is vaping and is cutting down on vaping Current Medication - Amoxicillin-Pot Clavulanate 500-125 MG Oral Tablet twice a day 0 days, 0 refills - EpiPen 2-Cordelia 0.3 MG/0.3ML Injection Solution Auto-injector inject into thigh at onset of allergic reaction, 30 days, 0 refills - Vitamins 28-0.8 MG Oral Tablet 0 days, 0 refills Past Medical/Surgical History Other: No previous suicide attempt Reported: : Planning to have a baby in the next 12 months. Social History Environmental Exposure: No secondhand cigarette smoke exposure. Behavioral: Not a current tobacco user. Tobacco use: Using electronic cigarettes/vaping. Alcohol: Not using alcohol. Drug Use: Does not misuse drugs. Housing And Economic Circumstances: Lives with significant other. 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 Sexual: Sexually active, sexual orientation Straight (not lesbian or ferrara), and gender identity Female. Allergies - cabbage Reaction: Anaphylaxis (Severe) - Dove Reaction: Skin Rashes / Eruption of skin (Moderate) - Codeine Reaction: Anaphylaxis (Severe) - grape fruit Reaction: Anaphylaxis (Severe) - Lactose intolerance Reaction: Nausea (Severe) - metformin Reaction: Anaphylaxis (Severe) - tomatoes Reaction: Anaphylaxis (Severe) - Toradol Reaction: Skin Rashes / Eruption of skin (Severe) Physical Findings General Appearance: - Normal Appearance. Neurological: - Cognitive Functions was Normal. - Oriented to time, place, and person. Speech: - Is Normal. Psychiatric: - Attitude Open. - Mood was calm. Demonstrated Behavior: - Eye Contact Appropriate. Thought Content: - Revealed no impairment. - No suicidal ideation. - No Passive thoughts of . - No suicidal plans. - No suicidal intent. - No homicidal ideations. - No homicidal plans. - No homicidal intent. Assessment - Nicotine dependence [F17.200 - Nicotine dependence, unspecified, uncomplicated] - Bipolar I disorder [F31.9 - Bipolar disorder, unspecified] Therapy - SBIRT Screen Neg. - Brief solution-focused therapy. Counseling/Education [facility] educated patient on HPWO model of care. P and PA discussed patient mood, noting that her screenings were 0, but patient has reported history of bipolar, PTSD, and anxiety and has been on medications for years. BHP and PA discussed patient decision to stop medications to initiate a , noting that patient is following with psychiatry and has good supports around her. P praised patient for 6 years substance free. Plan Follow up as scheduled. Health Reminders - Assess Tobacco Use satisfied 04/29/2022. - PHQ9 / PHQA satisfied 04/29/2022. - SBIRT satisfied 04/29/2022. User Defined 1 Has lack of transportation kept patient from medical appointments or from getting medications: No and lack of transportation has kept patient from beneficial non-medical activities: No. She has not had 4 or more drinks in a day within the past year. Do you feel stress - tense, restless, nervous, or anxious, or unable to sleep at night because your mind is troubled all the time - these days? A little bit. No misuse of prescription only drugs and not illicit. Does patient feel physically and emotionally safe where he/she lives: Yes. Is patient is worried about losing housing: No, In the past year, patient or family members in household were unable to get needed clothing: No, unable to get needed child psychiatrist: No, unable to get needed phone: No, unable to get needed utilities: No, unable to get needed Medicine or Health Care: No, and In the past year, patient or family members in household were unable to get needed food: No. How often does patient see or talk to people that that he/she cares about and feels close to: 5 or more times a week. PHQ-9: total score was 0 04/29/2022, [PHQ-9-1] Little interest or pleasure in doing things? + 0 pt : Not at all, [PHQ-9-2] Feeling down, depressed, or hopeless? + 0 pt : Not at all, [PHQ-9-3] Trouble falling or staying asleep or sleeping too much? + 0 pt : Not at all, [PHQ-9-4] Feeling tired or having little energy? + 0 pt : Not at all, [PHQ-9-5] Poor appetite or overeating? + 0 pt : Not at all, [PHQ-9-6] Feeling bad about yourself-or that you are a failure + 0 pt : Not at all, [PHQ-9-7] Trouble concentrating on things such as reading the newspaper + 0 pt : Not at all, [PHQ-9-8] Moving or speaking so slowly that other people have noticed. + 0 pt : Not at all, and [PHQ-9-9] Thoughts that you would be better off or hurting yourself? + 0 pt : Not at all. [facility]03-13-2023 Progress note* Progress note Date Encounter Last Documented by 04/29/2022 Open Access New Patient Last doc umented on 04/29/2022; 1:03 PM, Juanita Lewis PA-C; [facility] Active Problems & Conditions - Bipolar I Disorder - History of Anaphylactoid Drug Reaction - Pharyngitis Streptococcus, Group A: Beta Hemolytic Recurrent - Recurrent Loss (Non-gravid) Chief Complaint The Chief Complaint is: Recurrent strep and would like and ENT referral. Referred Here Referred by urgent care clinic. Not referred by emergency room. No prior encounters. - Data to be reviewed: no clinical lab tests History of Present Illness Susy Zamudio is a 26 year old female. - Allergy list reviewed - Problem list reviewed - Reviewed Medications - Medication list reviewed - Sore throat Patient is a 26 yo female with h/o DM2 and multiple anaphylactic allergies to rx who presents for recurrent strep infections. She reports 6 strep infections (including current) since this time last year - notes not available. She most recently was seen at urgent care on [facility], where she swabbed positive for strep and was started on Augmentin abx. Diagnosed with bipolar 1 - previously controlled with zoloft, trileptal 600mg BID, trazodone qhs, propranolol, and prazosin qhs. Appt set up with [facility]. 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 Stopped all medications due to currenty trying to get . History of frequent miscarriages. No recent labs. A1c today 5.3%, negative for HIV and HCV. H/o anaphylaxis to metformin, codeine, tomatoes, cabbage, grapefruit. Rashes with codeine, artificial dove. Would like to establish with an electronics mechanic. 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 : Planning to have a baby in the next 12 months. Diagnoses: Systemic hypertension. Asthma. Psychiatric disorders Surgical: - Extraction of wisdom tooth Social History Environmental Exposure: No secondhand cigarette smoke exposure. Tobacco use: Using electronic cigarettes/vaping. Alcohol: A social drinker. Drug Use: Using marijuana. Not using drugs 6 years sober from methamphetamine and percocet. Sexual: Sexually active with partners in the last year with 1 partner(s) currently. Sexual orientation Straight (not lesbian or ferrara) and gender identity Female. No report of control being practiced. Allergies - cabbage Reaction: Anaphylaxis (Severe) - Dove Reaction: Skin Rashes / Eruption of skin (Moderate) - Codeine Reaction: Anaphylaxis (Severe) - grape fruit Reaction: Anaphylaxis (Severe) - Lactose intolerance Reaction: Nausea (Severe) - metformin Reaction: Anaphylaxis (Severe) - tomatoes Reaction: Anaphylaxis (Severe) - Toradol Reaction: Skin Rashes / Eruption of skin (Severe) Family History Paternal: Systemic hypertension Type 1 diabetes mellitus Psychiatric disorders Maternal: Systemic hypertension Type 2 diabetes mellitus Psychiatric disorders Oncologic disorder Fraternal: Psychiatric disorders Sororal: Psychiatric disorders Review Of Systems Systemic: No systemic symptoms. Head: No headache. Neck: No neck pain. Eyes: No eye symptoms. Otolaryngeal: No ear symptoms and no nasal symptoms. Sore throat. Cardiovascular: No chest pain or discomfort and no palpitations. Pulmonary: Not feeling congested in the chest, no dyspnea, and no wheezing. Gastrointestinal: No gastrointestinal symptoms. Genitourinary: No genitourinary symptoms. Musculoskeletal: No musculoskeletal symptoms. Neurological: No neurological symptoms. Psychological: Anxiety and depression. Skin: No skin symptoms. Physical Findings - Vitals taken 04/29/2022 10:47 am BP-Sitting L122/70 mmHg BP Cuff SizeLarge Pulse Rate-Bbpkebe58 bpm Temp-Chaznqdu83.9 F Hjvdte56 in Abskne875 lbs 3.2 oz Body Mass Index46.5 kg/m2 Body Surface Area2.3 m2 Oxygen Ywgbtryofq47 % General Appearance: - Awake. - Alert. - Well developed. - Well nourished. - In no acute distress. Head: Appearance: - Head normocephalic. Neck: Palpation: - Of the neck revealed no abnormalities. Thyroid: - Is normal. Eyes: General/bilateral: Extraocular Movements: - Normal. Pupils: - PERRLA. Sclera: - Not red. Ears: General/bilateral: Tympanic Membrane: - Examined. - Erythematous. - Increased vascularity of tympanic membrane. Middle Ear: - Mucoid fluid in middle ear. - Fluid in both middle ears. Nose: General/bilateral: Discharge: - No nasal discharge. Nasal Erythema: - No nasal erythema was noted. Oral Cavity: Lips: - Showed no abnormalities. Gums: - Examination showed no abnormalities. Salivary Glands: - Sublingual glands were tender. - Sublingual glands were swollen. Pharynx: Oropharynx: - Abnormal. - Tonsils were erythematous. - Tonsils were enlarged. - Tonsils showed no exudate. Lymph Nodes: - Anterior cervical lymph nodes were enlarged bilaterally with tenderness. Lungs: - Respiration rhythm and depth was normal. - Clear to auscultation. Cardiovascular: Heart Rate And Rhythm: - Normal. Heart Sounds: - Normal. Edema: - Not present. Abdomen: Auscultation: - Bowel sounds were normal. Palpation: - Abdominal non-tender. Musculoskeletal System: General/bilateral: - Normal movement of all extremities. Neurological: - No confusion was observed. - No disorientation was observed. - Oriented to time, place, and person. - Memory was unimpaired. Speech: - Normal. Psychiatric: Demonstrated Behavior: - Appropriate behavior for patient. Thought Processes: - No thought disorder was noted. - Evaluation of connectedness showed no deficiency. - Rate of thought was normal. - Attention demonstrated no abnormalities. Thought Content: - Revealed no impairment. Skin: - General appearance was normal. Tests Blood Analysis: Blood Endocrine Laboratory Tests: ValueDate Blood glucose level by fingerstick Fasting 94 mg/dl04/29/2022 Blood hemoglobin A1c 5.3%04/29/2022 Laboratory-based Chemistry: Immunology Studies: HIV test was negative. Microbiology: Infectious Agent Antigen Detection: Antigen detection for hepatitis C was negative 04/29/2022. Assessment - Z11.4 - Encounter for screening for human immunodeficiency virus [HIV] - Z11.59 - Encounter for screening for other viral diseases - Z68.42 - Body mass index [BMI] 45.0-49.9, adult - Z13.1 - Encounter for screening for diabetes mellitus - Z00.01 - Encounter for general adult medical examination with abnormal findings - J02.0 - Streptococcal pharyngitis - N96 - Recurrent loss Therapy - Patient refused flu vaccine. Discussed benefits of flu vaccine with Patient. Vaccinations - Received dose of Reported: Patient has received the COVID Vaccine Counseling/Education - No not wishing to stop using electronic cigarettes/vaping - Discussed nutritional needs teach healthy choices including fruits and vegetables - Patient education about a proper diet - Discussed concerns about exercise: promote physical activity Plan StartCited- Personal history of anaphylaxis Referrals: Allergy, Asthma, and Immunology Instructions: Please make a referral to: EpiPen 2-Cordelia 0.3 MG/0.3ML each inject into thigh at onset of allergic reaction, 30 days, 0 refills EndCited StartCited- Recurrent loss Lab: B 2 GLYCOPROTEIN,IGG Lab: B 2 GLYCOPROTEIN,IGM Lab: ANTI-CARDIOLIPIN IGG Lab: ANTI-CARDIOLIPIN IGM Lab: CBC Lab: COMP MET PROF DIALLO Lab: LIPID PROFILE Lab: LUPUS ACTIVITY PANEL Lab: TSH W/REFLEX TO FT4 Lab: VITAMIN D 25 OH EndCited StartCited- Streptococcal pharyngitis Referrals: ENT Instructions: Please make a referral to: EndCited labs for recurrent loss continue reduction of vaping and avoidance of cigarettes/tobacco keep appt with psych to discuss plan for meds around will refer to ENT and allergy Practice Management Hemoglobin A1c level < 7.0%, for blood pressure systolic < 140 mmHg systolic < 130 mmHg systolic < 130 mmHg, and diastolic < 80 mmHg diastolic < 80 mmHg. Health Reminders - Adult Well Visit 18 years and older satisfied 04/29/2022. - Assess BMI satisfied 04/29/2022. - Assess Tobacco Use satisfied 04/29/2022. - Diabetes Risk Screening Needed satisfied 04/29/2022. - Follow Up Plan BMI Management satisfied 04/29/2022. - HIV Screen satisfied 04/29/2022. User Defined 1 Yes (1 point) [Pre-DM]: Yes, mother, father, sister or brother has DM, Yes (1 point) [Pre-DM]: Yes, patient has been diagnosed with high blood pressure, No (0 points) [Pre-DM]: Patient has not been diagnosed with gestational diabetes or given to a baby weighing 9 pounds or more, No (1 point) [Pre-DM]: No, not physically active, and Woman (0 Points) [Pre-DM]. Less than 40 years (0 points) [Pre-DM]. [facility]11-07-2022 Hospital Discharge instructions* Discharge Instructions* Alexandra Rodriguez DO - 12/24/2021 1:28 AM EST If given narcotics (opiates) or muscle relaxants during this Emergency Department visit, you shouldnot drink, drive or operate any machinery for at least 6 hours. Take your medication as indicated and prescribed. For pain use acetaminophen (Tylenol) or ibuprofen(Motrin / Advil), unless prescribed medications that have acetaminophen or ibuprofen (or similar medications) in it. You can take over the counter acetaminophen tablets (1 - 2 tablets of the 500-mg strength every 6 hours) or ibuprofen tablets (2 tablets every 4 hours). Use an ice pack or bag filled with ice and apply to the injured area 3 - 4 times a day for 15 - 20 minutes each time. If the injury is older than 3 days, then use a heating pad to help relax the muscles. PLEASE RETURN TO THE EMERGENCY DEPARTMENT IMMEDIATELY for worsening of pain, decrease sensation to arms or legs, inability to move arms or legs, shortness of breath, severe chest pain, excessive nausea or vomiting, notice any bruising to your abdomen or have increase in abdominal pain, or if you develop any concerning symptoms such as: high fever not relieved by acetaminophen (Tylenol) and/or ibuprofen (Motrin / Advil), chills, feeling of your heart fluttering or racing, persistent nausea and/or vomiting, vomiting up blood, blood in your stool, loss of consciousness, numbness, weakness or tingling in the arms or legs or change in color of the extremities, changes in mental status, persistent headache, blurry vision, loss of bladder / bowel control, unable to follow up with your physician,or other any other care or concern. * Attachments The following attachments cannot be sent through Care Everywhere. * Back Pain: Relief: General Info (Austrian) documented in this encounterB[facility] Work Phone: [phone]) 988-926410-30-2022 Hospital Discharge instructions* Discharge Instructions* Pb Benitez MD - 12/16/2021 8:58 AM EDT If given narcotics (opiates) during this Emergency Department visit, you should not drink, drive oroperate any machinery for at least 6 hours. Take your medication as indicated and prescribed. If you are given an antibiotic then, make sure you get the prescription filled and take the antibiotics until finished. Drink plenty of water while taking the antibiotics. Avoid drinking alcohol or drinks that have caffeine in it while taking antibiotics. For pain use acetaminophen (Tylenol) or ibuprofen (Motrin / Advil), unless prescribed medications that have acetaminophen or ibuprofen (or similar medications) in it. You can take over the counter acetaminophen tablets (1 - 2 tablets of the 500-mg strength every 6 hours) or ibuprofen tablets (2 tablets every 4 hours). PLEASE RETURN TO THE EMERGENCY DEPARTMENT IMMEDIATELY for worsening symptoms, white drainage from the wound, redness or streaking, or if you develop any concerning symptoms such as: high fever not relieved by acetaminophen (Tylenol) and/or ibuprofen (Motrin / Advil), chills, shortness of breath, chest pain, feeling of your heart fluttering or racing, persistent nausea and/or vomiting, vomiting upblood, blood in your stool, loss of consciousness, numbness, weakness or tingling in the arms or legs or change in color of the extremities, changes in mental status, persistent headache, blurry vision, loss of bladder / bowel control, unable to follow up with your physician, or other any other care or concern. * Attachments The following attachments cannot be sent through Care Everywhere. * Bite: Human (Austrian) documented in [facility] [employer] Work Phone: [phone] 129-251105-03-2022 Hospital Discharge instructions* Instructions* Khang Wu DO - 06/19/2021 Take your medication as indicated and prescribed. If you are given an antibiotic then, make sure you get the prescription filled and take the antibiotics until finished. Drink plenty of water while taking the antibiotics. Avoid drinking alcohol or drinks that have caffeine in it while taking antibiotics. If you were given the medication pyridium (or take over the counter Azo) - do not wear any contacts for the next week since this medication will turn your tears an orange color and will stain the contacts. For pain use acetaminophen (Tylenol) or ibuprofen (Motrin / Advil), unless prescribed medications that have acetaminophen or ibuprofen (or similar medications) in it. You can take over the counter acetaminophen tablets (1 - 2 tablets of the 500-mg strength every 6 hours) or ibuprofen tablets (2 tablets every 4 hours). PLEASE RETURN TO THE EMERGENCY DEPARTMENT IMMEDIATELY for worsening symptoms, inability to urinate,worsening of blood in your urine, or if you develop any concerning symptoms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 contusion with intact skin surface of left anterior lower leg Medical Established Patient with Juanita Mandydorf PA-C 05/27/2022 Last Documented On 3 4:00PM ; [facility] [Z68.42 - Body mass index [B MS] 45.0-49.9, adult] assessment of body mass index Medical Established Patient with Juanita Mandydorf PA-C 05/27/2022 Last Documented On 3 4:00PM ; [facility] Pain in lower leg Medical Established Patient wi th Juanita Mandydorf PA-C 05/27/2022 Last Documented On 3 4:00PM ; [facility] Iron deficiency anemia Chart Update with Juanita Mandydorf PA-C 05/21/2022 Last Documented On 3 4:12PM ; [facility] [E55.9 - Vitamin D deficienc y, unspecified] vitamin D deficiency Open Access - Established with Juanita Mandydorf PA-C 05/17/2022 Last Documented On 3 3:44PM ; [facility] [Z68.42 - Body mass index [B MS] 45.0-49.9, adult] assessment of body mass index Open Access - Established with Juanita Lewis PA-C 05/17/2022 Last Documented On 3 3:44PM ; [facility] Iron deficiency anemia Open Access - Est ablished with Juanita Lewis PA-C 05/17/2022 Last Documented On 3 3:44PM ; [facility] Organic sleep apnea Open Access - Established wi th Juanita Lewis PA-C 05/17/2022 Last Documented On 3 3:44PM ; [facility] Primary snoring Open Access - Established with Harjinder Lewis PA-C 05/17/2022 Last Documented On 3 3:44PM ; [facility] Bipolar I disorder Established Patient with N lavonne MÁRQUEZW 04/29/2022 Last Documented On 3 11:36AM ; [facility] Nicotine dependence Established Patient with Odalys Juan MANAGER [employer] 04/29/2022 Last Documented On 3 11:36AM ; [facility] [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) Open Access New Patient with Juanita Lewis PA-C 04/29/2022 Last Documented On 3 1:03PM ; [facility] [Z00.01 - Encounter for gene [facility] adult medical examination with abnormal findings] routine history and physical Open Access New Patient with Juanita Guanrf PA-C 04/29/2022 Last Documented On 3 1:03PM ; [facility] [Z68.42 - Body mass index [B MS] 45.0-49.9, adult] assessment of body mass index Open Access New Patient with Juanita Rogerf PA-C 04/29/2022 Last Documented On 3 1:03PM ; [facility] Diabetes Risk Test Score was five score 04/29/2022 Open Access New Patient with Juanita Guanrf PA-C 04/29/2022 Last Documented On 3 1:03PM ; [facility] Recurrent pharyngitis streptococcus Open Access New Patient with Juanita Lewis PA-C 04/29/2022 Last Documented On 3 1:03PM ; [facility] Screening for Hep C Open Access New Patient with Juanita Lewis PA-C 04/29/2022 Last Documented On 3 1:03PM ; [facility] Screening for HIV Open Access New Patient with Harjinder Lewis PA-C 04/29/2022 Last Documented On 3 1:03PM ; [facility] Work Phone: Evaluation note Includes: Assessments for all patient encounters Findings Encounter Date Bipolar disorder NOS Established Patient with Odalys Martinez MANAGER [employer] 04/23/2023 Last Documented On 4 12:14PM ; [facility] Nicotine dependence Established Patient with Odalys Martinez MANAGER [employer] 04/23/2023 Last Documented On 4 12:14PM ; [facility] [Z68.42 - Body mass index [B MS] 45.0-49.9, adult] assessment of body mass index was 45.3 kg/m2 Medical Established Patient with Juanita Lewis PA-C 04/23/2023 Last Documented On 4 11:53AM ; [facility] Bipolar I disorder Medical Established Patient w jose Lewis PA-C 04/23/2023 Last Documented On 4 11:53AM ; [facility] Nicotine dependence continuous Medical E stablished Patient with Juanita Galvandorf PA-C 04/23/2023 Last Documented On 4 11:53AM ; [facility] Bipolar I disorder Established Patient with Dixon Moran MANAGER [employer]-S 04/09/2023 Last Documented On 4 4:48PM ; [facility] Intervention and counseling on cessation of tobacco use, 3-10 minutes Discussed medication and nicotine replacement for tobacco cessation Established Patient with Kristin Moran MANAGER [employer]-S 04/09/2023 Last Documented On 4 4:48PM ; [facility] Nicotine dependence BH Established Patient with Kristin Dean SMITH-S 04/09/2023 Last Documented On 4 4:48PM ; [facility] [Z68.42 - Body mass index [B MS] 45.0-49.9, adult] assessment of body mass index Open Access - Established with Juanita Lewis PA-C 04/09/2023 Last Documented On 4 10:53AM ; [facility] Assessment of initial prescr iption of implantable subdermal contraceptive Open Access - Established with Juanita Lewsi PA-C 04/09/2023 Last Documented On 4 10:53AM ; [facility] Bipolar I disorder Open Access - Established wit h Juanita Lewis PA-C 04/09/2023 Last Documented On 4 10:53AM ; [facility] Consent form on file for pro cedure :Nexplanon Open Access - Established with Juanita Lewis PA-C 04/09/2023 Last Documented On 4 10:53AM ; [facility] Intervention and counseling on cessation of tobacco use, 3-10 minutes Discussed medication and nicotine replacement for tobacco cessation Open Access - Established with Juanita Lewis PA-C 04/09/2023 Last Documented On 4 10:53AM ; [facility] Iron deficiency anemia Open Access - Est ablished with Juanita Lewis PA-C 04/09/2023 Last Documented On 4 10:53AM ; [facility] Nexplanon Implant placed Pat ient is being seen today for Nexplanon insertion for control. We have thoroughly discussed Nexplanon, and the patient has no contraindications to the implant or local anesthetics. She understands the success and failure rates of the implant. She is aware of the potential for altered or irregular bleeding patterns and other options for control. We have discussed the insertion procedure and removal procedure, and risks of insertion and removal. She has had an opportunity to have her questions answered. Patient was placed in the supine position. The right arm was flexed at the elbow and externally rotated so that her hand was under her head. Insertion site was identified at the inner side of the arm 8-10 cm above the medial epicondyle of the humerus and 3-4 cm posterior to the sulcus overlying the triceps muscle. Two estrada were made with a sterile marker: the first located at the insertion site and the second a few centimeters proximal to the first gloria to guide direction. The insertion site was cleaned with an antiseptic solution. The insertion site was anesthetized with 3 mL 2% lidocaine with epi. The skin was stretched around the insertion site with the thumb and index finger. The skin was punctured with the tip of the needle angled about 30 degrees. The implant was inserted subdermally. Placement was verified by myself and the patient via palpation. The patient tolerated the procedure well Open Access - Established with Juanita Lewis PA-C 04/09/2023 Last Documented On 4 10:53AM ; [facility] Nexplanon Implant Wound Care : Patient was instructed on wound care. She is to leave the pressure dressing in place for 24 hours. After 24 hours, she may remove the pressure dressing, but not the bandaid. That should stay in place for 3-5 days. Patient was also instructed that she needs to continue to use condoms for the first month. The patient understands to follow up if fever, chills, light headed, chest pain, shortness of breath, heavy bleeding or any other severe symptom Open Access - Established with Juanita Lewis PA-C 04/09/2023 Last Documented On 4 10:53AM ; [facility] Prediabetes Open Access - Established with Harjinder Lewis PA-C 04/09/2023 Last Documented On 4 10:53AM ; [facility] Bipolar I disorder Established Patient with Dixon SALGADO 01/24/2023 Last Documented On 3 9:45PM ; [facility] [G47.30 - Sleep apnea, unspe cified] organic sleep apnea Medical Established Patient with Juanita MORALES-Blair 01/24/2023 Last Documented On 3 10:48AM ; [facility] [Z68.42 - Body mass index [B MS] 45.0-49.9, adult] assessment of body mass index was 46.3 kg/m2 Medical Established Patient with Juanita Lewis PA-C 01/24/2023 Last Documented On 3 10:48AM ; [facility] Classic migraine with aura w ith intractable migraine with status migrainosus Medical Established Patient with Juanita Lewis PA-C 01/24/2023 Last Documented On 3 10:48AM ; [facility] Mild persistent asthma with exacerbation Medical Established Patient with Juanita Lewis PA-C 01/24/2023 Last Documented On 3 10:48AM ; [facility] [Z02.1 - Encounter for pre-e mployment examination] routine pre-employment screening examination Open Access - Established with Juanita Lewis PA-C 11/29/2022 Last Documented On 3 4:45PM ; [facility] [Z11.1 - Encounter for miguel angel marcus for respiratory tuberculosis] visit for: screening for pulmonary tuberculosis Open Access - Established with Juanita Lewis PA-C 11/29/2022 Last Documented On 3 4:45PM ; [facility] [Z68.42 - Body mass index [B MS] 45.0-49.9, adult] assessment of body mass index Open Access - Established with Juanita Lewis PA-C 11/29/2022 Last Documented On 3 4:45PM ; [facility] Encounter for Immunization Open Access - Established with Juanita Lewis PA-C 11/29/2022 Last Documented On 3 4:45PM ; [facility] Prediabetes Open Access - Established with Harjinder harmanmakayla Joshua PA-C 11/29/2022 Last Documented On 3 4:45PM ; [facility] [Z68.42 - Body mass index [B MS] 45.0-49.9, adult] assessment of body mass index Open Access - Established with Juanita Lewis PA-C 11/05/2022 Last Documented On 3 12:38PM ; [facility] Acute serous otitis media of left ear Open Access - Established with Juanita Lewis PA-C 11/05/2022 Last Documented On 3 12:38PM ; [facility] [J02.9 - Acute pharyngitis, unspecified] acute pharyngitis Open Access - Established with Kb Pelaez 10/17/2022 Last Documented On 3 12:51PM ; [facility] [J11.1 - Influenza due to un identified influenza virus with other respiratory manifestations] influenza with URI Open Access - Established with Kb Pelaez 10/17/2022 Last Documented On 3 12:51PM ; [facility] [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) Open Access - Established with Kb Pelaez 10/17/2022 Last Documented On 3 12:51PM ; [facility] [R35.0 - Frequency of mictur ition] urinary frequency Open Access - Established with Kb Pelaez 10/17/2022 Last Documented On 3 12:51PM ; [facility] [Z68.42 - Body mass index [B MS] 45.0-49.9, adult] assessment of body mass index was 47.2 kg/m2 Open Access - Established with Kb Pelaez 10/17/2022 Last Documented On 3 12:51PM ; [facility] Intervention and counseling on cessation of tobacco use, 3-10 minutes Discussed medication and nicotine replacement for tobacco cessation Open Access - Established with Kb Pelaez 10/17/2022 Last Documented On 3 12:51PM ; [facility] Nicotine dependence Open Access - Established wi Kb Pelaez 10/17/2022 Last Documented On 3 12:51PM ; [facility] Venipuncture was performed Open Access - Establi shed with Kb Pelaez 10/17/2022 Last Documented On 3 12:51PM ; [facility] [F17.200 - Nicotine dependen ce, unspecified, uncomplicated] nicotine dependence uncomplicated Medical Established Patient with Juanita Lewis PA-C 10/09/2022 Last Documented On 3 2:42PM ; [facility] [Z68.42 - Body mass index [B MS] 45.0-49.9, adult] assessment of body mass index Medical Established Patient with Juanita Hattendorf PA-C 10/09/2022 Last Documented On 3 2:42PM ; [facility] Classic migraine (with aura) with intractable migraine with status migrainosus Medical Established Patient with Juanita Hattendorf PA-C 10/09/2022 Last Documented On 3 2:42PM ; [facility] Iron deficiency anemia Medical Establish ed Patient with Juanita Hattendorf PA-C 10/09/2022 Last Documented On 3 2:42PM ; [facility] Prediabetes Medical Established Patient with Juanita Hattendorf PA-C 10/09/2022 Last Documented On 3 2:42PM ; [facility] [R73.03 - Prediabetes] prediabetes Open Access - Established with Juanita Hattendorf PA-C 09/18/2022 Last Documented On 3 2:31PM ; [facility] [Z68.42 - Body mass index [B MS] 45.0-49.9, adult] assessment of body mass index Open Access - Established with Juanita Hattendorf PA-C 09/18/2022 Last Documented On 3 2:31PM ; [facility] Classic migraine (with aura) with intractable migraine with status migrainosus Open Access - Established with Juanita Hattendorf PA-C 09/18/2022 Last Documented On 3 2:31PM ; [facility] [S80.12XD - Contusion of lef t lower leg, subsequent encounter] contusion with intact skin surface of left anterior lower leg Medical Established Patient with Juanita Hattendorf PA-C 05/27/2022 Last Documented On 3 4:00PM ; [facility] [Z68.42 - Body mass index [B MS] 45.0-49.9, adult] assessment of body mass index Medical Established Patient with Juanita Hattendorf PA-C 05/27/2022 Last Documented On 3 4:00PM ; [facility] Pain in lower leg Medical Established Patient wi th Juanita Hattendorf PA-C 05/27/2022 Last Documented On 3 4:00PM ; [facility] Iron deficiency anemia Chart Update with Juanita Lewis PA-C 05/21/2022 Last Documented On 3 4:12PM ; [facility] [E55.9 - Vitamin D deficienc y, unspecified] vitamin D deficiency Open Access - Established with Juanita Guanmaico PA-C 05/17/2022 Last Documented On 3 3:44PM ; [facility] [Z68.42 - Body mass index [B MS] 45.0-49.9, adult] assessment of body mass index Open Access - Established with Juanita Galvandomaico PA-C 05/17/2022 Last Documented On 3 3:44PM ; [facility] Iron deficiency anemia Open Access - Est ablished with Juanita Galvandorf PA-C 05/17/2022 Last Documented On 3 3:44PM ; [facility] Organic sleep apnea Open Access - Established wi th Juanita Mandychip PA-C 05/17/2022 Last Documented On 3 3:44PM ; [facility] Primary snoring Open Access - Established with S monicamarymakayla Joshua PA-C 05/17/2022 Last Documented On 3 3:44PM ; [facility] Bipolar I disorder Established Patient with Chavez MÁRQUEZW 04/29/2022 Last Documented On 3 11:36AM ; [facility] Nicotine dependence Established Patient with Odalys SMITH 04/29/2022 Last Documented On 3 11:36AM ; [facility] [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) Open Access New Patient with Juanita Galvandorf PA-C 04/29/2022 Last Documented On 3 1:03PM ; [facility] [Z00.01 - Encounter for gene ral adult medical examination with abnormal findings] routine history and physical Open Access New Patient with Juanita Galvandorf PA-C 04/29/2022 Last Documented On 3 1:03PM ; [facility] [Z68.42 - Body mass index [B MS] 45.0-49.9, adult] assessment of body mass index Open Access New Patient with Juanita Lewis PA-C 04/29/2022 Last Documented On 3 1:03PM ; [facility] Diabetes Risk Test Score was five score 04/29/2022 Open Access New Patient with Juanita Jimeneztendorf PA-C 04/29/2022 Last Documented On 3 1:03PM ; [facility] Recurrent pharyngitis streptococcus Open Access New Patient with Juanita Galvandorf PA-C 04/29/2022 Last Documented On 3 1:03PM ; [facility] Screening for Hep C Open Access New Patient with Juanita Galvandorf PA-C 04/29/2022 Last Documented On 3 1:03PM ; [facility] Screening for HIV Open Access New Patient with Harjinder Guanrf PA-C 04/29/2022 Last Documented On 3 1:03PM ; [facility] Work Phone: Evaluation note Includes: Assessments for all patient encounters Findings Encounter Date Bipolar disorder NOS Established Patient with Odalys Martinez [employer] 04/23/2023 Last Documented On 4 12:14PM ; [facility] Nicotine dependence Established Patient with Odalys Martinez [employer] 04/23/2023 Last Documented On 4 12:14PM ; [facility] [Z68.42 - Body mass index [B MS] 45.0-49.9, adult] assessment of body mass index was 45.3 kg/m2 Medical Established Patient with Juanita Jimeneztendorf PA-C 04/23/2023 Last Documented On 4 1:33PM ; [facility] Bipolar I disorder Medical Established Patient w jose Galvandorf PA-C 04/23/2023 Last Documented On 4 1:33PM ; [facility] Classic migraine with aura w ith intractable migraine with status migrainosus Medical Established Patient with Juanita Jimeneztendorf PA-C 04/23/2023 Last Documented On 4 1:33PM ; [facility] Nicotine dependence continuous Medical E stablished Patient with Juanita MORALES-C 04/23/2023 Last Documented On 4 1:33PM ; [facility] Bipolar I disorder BH Established Patient with Dixon MÁRQUEZW-S 04/09/2023 Last Documented On 4 4:48PM ; [facility] Intervention and counseling on cessation of tobacco use, 3-10 minutes Discussed medication and nicotine replacement for tobacco cessation BH Established Patient with Kristin Moran [employer]NA[employer]-S 04/09/2023 Last Documented On 4 4:48PM ; [facility] Nicotine dependence BH Established Patient with Kristin Moran [employer]NAGER [employer]-S 04/09/2023 Last Documented On 4 4:48PM ; [facility] [Z68.42 - Body mass index [B MS] 45.0-49.9, adult] assessment of body mass index Open Access - Established with Juanita Lewis PA-C 04/09/2023 Last Documented On 4 10:53AM ; [facility] Assessment of initial prescr iption of implantable subdermal contraceptive Open Access - Established with Juanita Lewis PA-C 04/09/2023 Last Documented On 4 10:53AM ; [facility] Bipolar I disorder Open Access - Established wit h Juanita Lewis PA-C 04/09/2023 Last Documented On 4 10:53AM ; [facility] Consent form on file for pro cedure :Nexplanon Open Access - Established with Juaniat Lewis PA-C 04/09/2023 Last Documented On 4 10:53AM ; [facility] Intervention and counseling on cessation of tobacco use, 3-10 minutes Discussed medication and nicotine replacement for tobacco cessation Open Access - Established with Juanita Lewis PA-C 04/09/2023 Last Documented On 4 10:53AM ; [facility] Iron deficiency anemia Open Access - Est ablished with Juanita Lewis PA-C 04/09/2023 Last Documented On 4 10:53AM ; [facility] Nexplanon Implant placed Pat alfient is being seen today for Nexplanon insertion for control. We have thoroughly discussed Nexplanon, and the patient has no contraindications to the implant or local anesthetics. She understands the success and failure rates of the implant. She is aware of the potential for altered or irregular bleeding patterns and other options for control. We have discussed the insertion procedure and removal procedure, and risks of insertion and removal. She has had an opportunity to have her questions answered. Patient was placed in the supine position. The right arm was flexed at the elbow and externally rotated so that her hand was under her head. Insertion site was identified at the inner side of the arm 8-10 cm above the medial epicondyle of the humerus and 3-4 cm posterior to the sulcus overlying the triceps muscle. Two estrada were made with a sterile marker: the first located at the insertion site and the second a few centimeters proximal to the first gloria to guide direction. The insertion site was cleaned with an antiseptic solution. The insertion site was anesthetized with 3 mL 2% lidocaine with epi. The skin was stretched around the insertion site with the thumb and index finger. The skin was punctured with the tip of the needle angled about 30 degrees. The implant was inserted subdermally. Placement was verified by myself and the patient via palpation. The patient tolerated the procedure well Open Access - Established with Juanita Lewis PA-C 04/09/2023 Last Documented On 4 10:53AM ; [facility] Nexplanon Implant Wound Care : Patient was instructed on wound care. She is to leave the pressure dressing in place for 24 hours. After 24 hours, she may remove the pressure dressing, but not the bandaid. That should stay in place for 3-5 days. Patient was also instructed that she needs to continue to use condoms for the first month. The patient understands to follow up if fever, chills, light headed, chest pain, shortness of breath, heavy bleeding or any other severe symptom Open Access - Established with Juanita Lewis PA-C 04/09/2023 Last Documented On 4 10:53AM ; [facility] Prediabetes Open Access - Established with Harjinder Lewis PA-C 04/09/2023 Last Documented On 4 10:53AM ; [facility] Bipolar I disorder BH Established Patient with Dixon harris Dean [employer]NA[employer]-S 01/24/2023 Last Documented On 3 9:45PM ; [facility] [G47.30 - Sleep apnea, unspe cified] organic sleep apnea Medical Established Patient with Juanita Hatnadeemdorf PA-C 01/24/2023 Last Documented On 3 10:48AM ; [facility] [Z68.42 - Body mass index [B MS] 45.0-49.9, adult] assessment of body mass index was 46.3 kg/m2 Medical Established Patient with Juanita Hattendorf PA-C 01/24/2023 Last Documented On 3 10:48AM ; [facility] Classic migraine with aura w ith intractable migraine with status migrainosus Medical Established Patient with Juanita Hattendorf PA-C 01/24/2023 Last Documented On 3 10:48AM ; [facility] Mild persistent asthma with exacerbation Medical Established Patient with Juanita Hattendorf PA-C 01/24/2023 Last Documented On 3 10:48AM ; [facility] [Z02.1 - Encounter for pre-e mployment examination] routine pre-employment screening examination Open Access - Established with Juanita Joshua PA-C 11/29/2022 Last Documented On 3 4:45PM ; [facility] [Z11.1 - Encounter for miguel angel marcus for respiratory tuberculosis] visit for: screening for pulmonary tuberculosis Open Access - Established with Juanita Mandydorf PA-C 11/29/2022 Last Documented On 3 4:45PM ; [facility] [Z68.42 - Body mass index [B MS] 45.0-49.9, adult] assessment of body mass index Open Access - Established with Juanita Mandydorf PA-C 11/29/2022 Last Documented On 3 4:45PM ; [facility] Encounter for Immunization Open Access - Established with Juanita Mandydorf PA-C 11/29/2022 Last Documented On 3 4:45PM ; [facility] Prediabetes Open Access - Established with Harjinder Lewis PA-C 11/29/2022 Last Documented On 3 4:45PM ; [facility] [Z68.42 - Body mass index [B MS] 45.0-49.9, adult] assessment of body mass index Open Access - Established with Juanita MORALES-Blair 11/05/2022 Last Documented On 3 12:38PM ; [facility] Acute serous otitis media of left ear Open Access - Established with Juanita MORALES-C 11/05/2022 Last Documented On 3 12:38PM ; [facility] [J02.9 - Acute pharyngitis, unspecified] acute pharyngitis Open Access - Established with Kb Pelaez 10/17/2022 Last Documented On 3 12:51PM ; [facility] [J11.1 - Influenza due to un identified influenza virus with other respiratory manifestations] influenza with URI Open Access - Established with Kb Pelaez 10/17/2022 Last Documented On 3 12:51PM ; [facility] [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) Open Access - Established with Kb Pelaez 10/17/2022 Last Documented On 3 12:51PM ; [facility] [R35.0 - Frequency of mictur ition] urinary frequency Open Access - Established with Kb Pelaez 10/17/2022 Last Documented On 3 12:51PM ; [facility] [Z68.42 - Body mass index [B MS] 45.0-49.9, adult] assessment of body mass index was 47.2 kg/m2 Open Access - Established with Kb Pelaez 10/17/2022 Last Documented On 3 12:51PM ; [facility] Intervention and counseling on cessation of tobacco use, 3-10 minutes Discussed medication and nicotine replacement for tobacco cessation Open Access - Established with Kb Pelaez 10/17/2022 Last Documented On 3 12:51PM ; [facility] Nicotine dependence Open Access - Established wi th Kb Pelaez 10/17/2022 Last Documented On 3 12:51PM ; [facility] Venipuncture was performed Open Access - Establi shed with Kb Pelaez 10/17/2022 Last Documented On 3 12:51PM ; [facility] [F17.200 - Nicotine dependen ce, unspecified, uncomplicated] nicotine dependence uncomplicated Medical Established Patient with Juanita Hattendorf PA-C 10/09/2022 Last Documented On 3 2:42PM ; [facility] [Z68.42 - Body mass index [B MS] 45.0-49.9, adult] assessment of body mass index Medical Established Patient with Juanita Hattendorf PA-C 10/09/2022 Last Documented On 3 2:42PM ; [facility] Classic migraine (with aura) with intractable migraine with status migrainosus Medical Established Patient with Juanita Hattendorf PA-C 10/09/2022 Last Documented On 3 2:42PM ; [facility] Iron deficiency anemia Medical Establish ed Patient with Juanita Hattendorf PA-C 10/09/2022 Last Documented On 3 2:42PM ; [facility] Prediabetes Medical Established Patient with Juanita Hattendorf PA-C 10/09/2022 Last Documented On 3 2:42PM ; [facility] [R73.03 - Prediabetes] prediabetes Open Access - Established with Juanita Hattendorf PA-C 09/18/2022 Last Documented On 3 2:31PM ; [facility] [Z68.42 - Body mass index [B MS] 45.0-49.9, adult] assessment of body mass index Open Access - Established with Juanita Hattendorf PA-C 09/18/2022 Last Documented On 3 2:31PM ; [facility] Classic migraine (with aura) with intractable migraine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 off problems, how difficult is it for you to do your work? + : Not difficult at all, [PHQ-9-1] Little interest or pleasure in doing things? + 0 pt : Not at all, [PHQ-9-2] Feeling down, depressed, or hopeless? + 0 pt : Not at all, [PHQ-9-3] Trouble falling or staying asleep or sleeping too much? + 1 pt : Several days, [PHQ-9-4] Feeling tired or having little energy? + 0 pt : Not at all, [PHQ-9-5] Poor appetite or overeating? + 1 pt : Several days, [PHQ-9-6] Feeling bad about yourself-or that you are a failure + 0 pt : Not at all, [PHQ-9-7] Trouble concentrating on things such as reading the newspaper + 0 pt : Not at all, [PHQ-9-8] Moving or speaking so slowly that other people have noticed. + 2 pt : More than half the days, and [PHQ-9-9] Thoughts that you would be better off or hurting yourself? + 0 pt : Not at all. [facility] No data available for this section [facility] Reason for referral (narrative)No Reason for Referral [facility] Work Phone: Review of systems Narrative - Reported Review of Systems not supported for this document type No Review of Systems [facility] Work Phone: Summary Purpose Family History No Family History Records Found Relationship Condition Age at Onset Recorded Date/T teresa Not Specified Bipolar affective disorder Unknown father Depression Unknown Not Specified Depression Unknown Description Last Updated Fraternal history of psychiatric disorde rs 04/29/2022 Last Documented On 3 1:03PM ; [facility] Maternal history of oncologic disorder 0 04/29/2022 Maternal history of psychiatric disorder s 04/29/2022 Maternal history of systemic hypertensio n 04/29/2022 Maternal history of type 2 diabetes nima itus 04/29/2022 Paternal history of psychiatric disorder s 04/29/2022 Paternal history of systemic hypertensio n 04/29/2022 Paternal history of type 1 diabetes nima itus 04/29/2022 Sororal history of psychiatric disorders 04/29/2022 Description Last Updated Fraternal history of psychiatric disorde rs 04/29/2022 Last Documented On 3 1:03PM ; [facility] Maternal history of oncologic disorder 0 04/29/2022 Maternal history of psychiatric disorder s 04/29/2022 Maternal history of systemic hypertensio n 04/29/2022 Maternal history of type 2 diabetes nima itus 04/29/2022 Paternal history of psychiatric disorder s 04/29/2022 Paternal history of systemic hypertensio n 04/29/2022 Paternal history of type 1 diabetes nima itus 04/29/2022 Sororal history of psychiatric disorders 04/29/2022 Description Last Updated Fraternal history of psychiatric disorde rs 04/29/2022 Last Documented On 3 1:03PM ; [facility] Maternal history of oncologic disorder 0 04/29/2022 Maternal history of psychiatric disorder s 04/29/2022 Maternal history of systemic hypertensio n 04/29/2022 Maternal history of type 2 diabetes nima itus 04/29/2022 Paternal history of psychiatric disorder s 04/29/2022 Paternal history of systemic hypertensio n 04/29/2022 Paternal history of type 1 diabetes nima itus 04/29/2022 Sororal history of psychiatric disorders 04/29/2022 Description Last Updated Fraternal history of psychiatric disorde rs 04/29/2022 Last Documented On 3 1:03PM ; [facility] Maternal history of oncologic disorder 0 04/29/2022 Maternal history of psychiatric disorder s 04/29/2022 Maternal history of systemic hypertensio n 04/29/2022 Maternal history of type 2 diabetes nima itus 04/29/2022 Paternal history of psychiatric disorder s 04/29/2022 Paternal history of systemic hypertensio n 04/29/2022 Paternal history of type 1 diabetes nima itus 04/29/2022 Sororal history of psychiatric disorders 04/29/2022 Description Last Updated Fraternal history of psychiatric disorde rs 04/29/2022 Last Documented On 3 1:03PM ; [facility] Maternal history of oncologic disorder 0 04/29/2022 Maternal history of psychiatric disorder s 04/29/2022 Maternal history of systemic hypertensio n 04/29/2022 Maternal history of type 2 diabetes nima itus 04/29/2022 Paternal history of psychiatric disorder s 04/29/2022 Paternal history of systemic hypertensio n 04/29/2022 Paternal history of type 1 diabetes nima itus 04/29/2022 Sororal history of psychiatric disorders 04/29/2022 Description Last Updated Fraternal history of psychiatric disorde rs 04/29/2022 Last Documented On 3 1:03PM ; [facility] Maternal history of oncologic disorder 0 04/29/2022 Maternal history of psychiatric disorder s 04/29/2022 Maternal history of systemic hypertensio n 04/29/2022 Maternal history of type 2 diabetes nima itus 04/29/2022 Paternal history of psychiatric disorder s 04/29/2022 Paternal history of systemic hypertensio n 04/29/2022 Paternal history of type 1 diabetes nima itus 04/29/2022 Sororal history of psychiatric disorders 04/29/2022 Description Last Updated Fraternal history of psychiatric disorde rs 04/29/2022 Last Documented On 3 1:03PM ; [facility] Maternal history of oncologic disorder 0 04/29/2022 Maternal history of psychiatric disorder s 04/29/2022 Maternal history of systemic hypertensio n 04/29/2022 Maternal history of type 2 diabetes nima itus 04/29/2022 Paternal history of psychiatric disorder s 04/29/2022 Paternal history of systemic hypertensio n 04/29/2022 Paternal history of type 1 diabetes nima itus 04/29/2022 Sororal history of psychiatric disorders 04/29/2022 Description Last Updated Fraternal history of psychiatric disorde rs 04/29/2022 Last Documented On 3 1:03PM ; [facility] Maternal history of oncologic disorder 0 04/29/2022 Maternal history of psychiatric disorder s 04/29/2022 Maternal history of systemic hypertensio n 04/29/2022 Maternal history of type 2 diabetes nima itus 04/29/2022 Paternal history of psychiatric disorder s 04/29/2022 Paternal history of systemic hypertensio n 04/29/2022 Paternal history of type 1 diabetes nima itus 04/29/2022 Sororal history of psychiatric disorders 04/29/2022 Description Last Updated Fraternal history of psychiatric disorde rs 04/29/2022 Last Documented On 3 1:03PM ; [facility] Maternal history of oncologic disorder 0 04/29/2022 Maternal history of psychiatric disorder s 04/29/2022 Maternal history of systemic hypertensio n 04/29/2022 Maternal history of type 2 diabetes nima itus 04/29/2022 Paternal history of psychiatric disorder s 04/29/2022 Paternal history of systemic hypertensio n 04/29/2022 Paternal history of type 1 diabetes nima itus 04/29/2022 Sororal history of psychiatric disorders 04/29/2022 Description Last Updated Fraternal history of psychiatric disorde rs 04/29/2022 Last Documented On 3 1:03PM ; [facility] Maternal history of oncologic disorder 0 04/29/2022 Maternal history of psychiatric disorder s 04/29/2022 Maternal history of systemic hypertensio n 04/29/2022 Maternal history of type 2 diabetes nima itus 04/29/2022 Paternal history of psychiatric disorder s 04/29/2022 Paternal history of systemic hypertensio n 04/29/2022 Paternal history of type 1 diabetes nima itus 04/29/2022 Sororal history of psychiatric disorders 04/29/2022 Description Last Updated Fraternal history of psychiatric disorde rs 04/29/2022 Last Documented On 3 1:03PM ; [facility] Maternal history of oncologic disorder 0 04/29/2022 Maternal history of psychiatric disorder s 04/29/2022 Maternal history of systemic hypertensio n 04/29/2022 Maternal history of type 2 diabetes nima itus 04/29/2022 Paternal history of psychiatric disorder s 04/29/2022 Paternal history of systemic hypertensio n 04/29/2022 Paternal history of type 1 diabetes nima itus 04/29/2022 Sororal history of psychiatric disorders 04/29/2022 Description Last Updated Fraternal history of psychiatric disorde rs 04/29/2022 Last Documented On 3 1:03PM ; [facility] Maternal history of oncologic disorder 0 04/29/2022 Maternal history of psychiatric disorder s 04/29/2022 Maternal history of systemic hypertensio n 04/29/2022 Maternal history of type 2 diabetes nima itus 04/29/2022 Paternal history of psychiatric disorder s 04/29/2022 Paternal history of systemic hypertensio n 04/29/2022 Paternal history of type 1 diabetes nima itus 04/29/2022 Sororal history of psychiatric disorders 04/29/2022 Description Last Updated Fraternal history of psychiatric disorde rs 04/29/2022 Last Documented On 3 1:03PM ; [facility] Maternal history of oncologic disorder 0 04/29/2022 Maternal history of psychiatric disorder s 04/29/2022 Maternal history of systemic hypertensio n 04/29/2022 Maternal history of type 2 diabetes nima itus 04/29/2022 Paternal history of psychiatric disorder s 04/29/2022 Paternal history of systemic hypertensio n 04/29/2022 Paternal history of type 1 diabetes nima itus 04/29/2022 Sororal history of psychiatric disorders 04/29/2022 Description Last Updated Fraternal history of psychiatric disorde rs 04/29/2022 Last Documented On 3 1:03PM ; [facility] Maternal history of oncologic disorder 0 04/29/2022 Maternal history of psychiatric disorder s 04/29/2022 Maternal history of systemic hypertensio n 04/29/2022 Maternal history of type 2 diabetes nima itus 04/29/2022 Paternal history of psychiatric disorder s 04/29/2022 Paternal history of systemic hypertensio n 04/29/2022 Paternal history of type 1 diabetes nima itus 04/29/2022 Sororal history of psychiatric disorders 04/29/2022 Advance Directives No Advanced Directives Records FoundDocuments on File Type Date Recorded Patient Joiner Helper Expl anation ACP-Advance Directive 09/02/2017 7:33 AM Latest Code Status on File Code Status Date Activated Date Inactivated Comments Full Code 08/24/2017 8:21 PM 08/30/2017 6:47 PM Documents on File Type Date Recorded Patient Joiner Helper Expl anation Advance Directives and Livin g Will Advance Directives and Livin g Will 09/02/2017 7:33 AM Power of Inside Meter Tester Documents on File Type Date Recorded Patient Joiner Helper Expl anation ACP-Advance Directive ACP-Advance Directive 09/02/2017 7:33 AM ACP-Power of Inside Meter Tester Documents on File Type Date Recorded Patient Joiner Helper Expl anation ACP-Advance Directive ACP-Power of Inside Meter Tester ACP-Advance Directive 09/02/2017 7:33 AM Documents on File Type Date Recorded Patient Joiner Helper Expl anation ACP-Advance Directive ACP-Power of Inside Meter Tester ACP-Advance Directive 09/02/2017 7:33 AM Latest Code Status on File Code Status Date Activated Date Inactivated Comments Full Code 08/24/2017 8:21 PM 08/30/2017 6:47 PM Advance Directive Response Recorded Date/ Time Advance Directives No May 10, 2 020 6:31pm Latest Code Status on File Code Status Date Activated Date Inactivated Comments Full Code 08/24/2017 8:21 PM 08/30/2017 6:47 PM Discharge Instructions * Instructions* Son Dinh MD - 08/03/2019 Take naproxen twice a day as needed for shoulder pain. If you have persistent pain follow-up with orthopedic surgery a phone number has been provided for you. * Attachments The following attachments cannot be sent through Care Everywhere. * Shoulder Arthritis: Exercises (Austrian) * Shoulder Pain (Austrian) documented in this encounter* Instructions* Austin Jovel MD - 08/09/2019 --- --- Current Diagnosis - Chest pain --- Results - All testing was unremarkable. Your evaluation was currently not consistent with a blood clot in the lungs, a tear in a major blood vessel, collapsed lung, heart failure, or heart attack. Given your risk factors and testing, your Heart Score is less than 4 which places you at less than a 1.8% risk of Major Adverse Cardiac Event in the next 6 weeks. --- Treatment - Currently the [place] [employer] recommends that all patients who present complaining of chest pain should receive a stress test within 48-72 hours. Avoid strenuous activity whilestill having pain and until you see your doctor. --- Return to ED for - Worsening or continuing pain, shortness of breath, passing out, lightheadedness,dizzy, neck pain, sweating, fever, cough --- Follow up - With your primary care physician within 48-72 hours if no better or worse and for a stress test within 48-72 hours as directed by the AHA --- --- You have been seen, evaluated, treated, and reevaluated in the emergency department. Your test results and diagnoses have been explained to you . You have expressed understanding of the results, yourdiagnosis, and its implications. All of your questions have been answered. Please read your discharge instructions carefully and follow them as directed. You have been provided access to your imagingand lab results and had any abnormalities explained, please take them to your doctor as they may require follow up as we discussed. --- It is important to remember that your care does not end here and you must continue to monitor your condition closely. Please return to the emergency department for any worsening or concerning signs or symptoms as directed by our conversations and the discharge instructions. Otherwise please follow up with your doctor in 2 days if no better or worse. If you do not have a doctor please contact the hospital of your choice. Please contact any physician specialists provided in your discharge notes as it is very important to follow up with them regarding your condition. If you are unable to reach the physicians provided, please come back to the Emergency Department at any time. --- As always, please take medications as directed. If you have any questions at all regarding your medications, please contact the pharmacist, the emergency department, or your doctor. Before taking anymedication prescribed in the Emergency Department, please review the medication side effects and drug interactions (http://www.rxlist.com/script/main/hp.asp) as they may interact with your home medications. --- Having trouble affording medications? Try [facility]! (This is not a hospital endorsed website, merely a recommendation based on my own personal experiences with [employer]) --- Questions? Contact me anytime. Austin Jovel MD, ARY --- --- * Attachments The following attachments cannot be sent through Care Everywhere. * Chest Pain (Austrian) * Pneumonia (Austrian) documented in this encounter* Instructions* Narda HendricksDO - 11/29/2019 Take your medication as indicated and prescribed. For pain use acetaminophen (Tylenol) or ibuprofen(Motrin / Advil), unless prescribed medications that have acetaminophen or ibuprofen (or similar medications) in it. You can take over the counter acetaminophen tablets (1 2 tablets of the 500-mg strength every 6 hours) or ibuprofen tablets (2 tablets every 4 hours). You can use over the counter allergy medication (Mucinex DM, Vera, Claritan, Zyrtec, etc) to help with the symptoms. Drink plenty of water. Avoid drinking alcohol or drinks that have caffeine. Placing a humidifier in your room at night may be beneficial for helping with nasal congestion. PLEASE RETURN TO THE EMERGENCY DEPARTMENT IMMEDIATELY for worsening symptoms, persistent fever, nausea and/or vomiting, or if you develop any concerning symptoms such as: high fever not relieved by acetaminophen (Tylenol) and/or ibuprofen (Motrin / Advil), chills, shortness of breath, chest pain, feeling of your heart fluttering or racing, loss of consciousness, numbness, weakness or tingling in the arms or legs or change in color of the extremities, changes in mental status, persistent headache, blurry vision, loss of bladder / bowel control, unable to follow up with your physician, or otherany other care or concern. Consider buying a portable pulse oximeter to monitor your oxygen saturation at home. Return to the ED if your pulse oximeter shows numbers less than 94%. Prevention steps for People with confirmed or suspected COVID-19 (including persons under investigation) who do not needto be hospitalized and People with confirmed COVID-19 who were hospitalized and determined to be medically stable to go home Your healthcare provider and public health staff will evaluate whether you can be cared for at home. If it is determined that you do not need to be hospitalized and can be isolated at home, you will be monitored by staff from your local or state health department. You should follow the prevention steps below until a healthcare provider or local or state health department says you can return to your normal activities. Stay home except to get medical care People who are mildly ill with COVID-19 are able to isolate at home during their illness. You should restrict activities outside your home, except for getting medical care. Do not go to work, school,or public areas. Avoid using public transportation, ride-sharing, or taxis. Separate yourself from other people and animals in your home People: As much as possible, you should stay in a specific room and away from other people in your home. Also, you should use a separate bathroom, if available. Animals: You should restrict contact with pets and other animals while you are sick with COVID-19, just like you would around other people. Although there have not been reports of pets or other animals becoming sick with COVID-19, it is still recommended that people sick with COVID-19 limit contactwith animals until more information is known about the virus. When possible, have another member ofyour household care for your animals while you are sick. If you are sick with COVID-19, avoid contact with your pet, including petting, snuggling, being kissed or licked, and sharing food. If you must care for your pet or be around animals while you are sick, wash your hands before and after you interact with pets and wear a facemask. See COVID-19 and Animals for more information. Call ahead before visiting your doctor If you have a medical appointment, call the healthcare provider and tell them that you have or may have COVID-19. This will help the healthcare provider s office take steps to keep other people from getting infected or exposed. Wear a facemask You should wear a facemask when you are around other people (e.g., sharing a room or vehicle) or pets and before you enter a healthcare provider s office. If you are not able to wear a facemask (for example, because it causes trouble breathing), then people who live with you should not stay in the same room with you, or they should wear a facemask if they enter your room. Cover your coughs and sneezes Cover your mouth and nose with a tissue when you cough or sneeze. Throw used tissues in a lined trash can. Immediately wash your hands with soap and water for at least 20 seconds or, if soap and water are not available, clean your hands with an alcohol-based hand facility technician that contains at least 60% alcohol. Clean your hands often Wash your hands often with soap and water for at least 20 seconds, especially after blowing your nose, coughing, or sneezing; going to the bathroom; and before eating or preparing food. If soap and water are not readily available, use an alcohol-based hand facility technician with at least 60% alcohol, covering all surfaces of your hands and rubbing them together until they feel dry. Soap and water are the best option if hands are visibly dirty. Avoid touching your eyes, nose, and mouth with unwashed hands. Avoid sharing personal household items You should not share dishes, drinking glasses, cups, eating utensils, towels, or bedding with otherpeople or pets in your home. After using these items, they should be washed thoroughly with soap and water. Clean all high-touch surfaces everyday High touch surfaces include counters, tabletops, doorknobs, bathroom fixtures, toilets, phones, keyboards, tablets, and bedside tables. Also, clean any surfaces that may have blood, stool, or body fluids on them. Use a household cleaning spray or wipe, according to the label instructions. Labels contain instructions for safe and effective use of the cleaning product including precautions you should take when applying the product, such as wearing gloves and making sure you have good ventilation during use of the product. Monitor your symptoms Seek prompt medical attention if your illness is worsening (e.g., difficulty breathing). Before seeking care, call your healthcare provider and tell them that you have, or are being evaluated for, COVID-19. Put on a facemask before you enter the facility. These steps will help the healthcare provider s office to keep other people in the office or waiting room from getting infected or exposed. Askyour healthcare provider to call the local or [facility]. Persons who are placed underactive monitoring or facilitated self- monitoring should follow instructions provided by their localhealth department or occupational health professionals, as appropriate. When working with your local health department check their available hours. If you have a medical emergency and need to call 911, notify the dispatch personnel that you have, or are being evaluated for COVID-19. If possible, put on a facemask before emergency medical services arrive. Discontinuing home isolation Patients with confirmed COVID-19 should remain under home isolation precautions until the risk of secondary transmission to others is thought to be low. The decision to discontinue home isolation precautions should be made on a [id number] basis, in consultation with healthcare providers and stateand [facility] health departments. https://www.cdc.gov/coronavirus/2019-ncov/hcp/clejencf-owamadj-hpskto.htmlDelaware [facility] Hospital departments: Antonino [phone] Reina [phone] Rachel [phone] Chele [phone] Gil [phone] Jennifer [phone] Gloria [phone] Carlo [phone] Ernie [phone] Chadd [phone] Chalo Munoz [phone] You can call [phone] or 24 hours a day. Recommended precautions for household members, intimate partners, and caregivers in a nonhealthcaresetting1 of A patient with symptomatic laboratory-confirmed COVID-19 or A patient under investigation Household members, intimate partners, and caregivers in a nonhealthcare setting may have close contact2 with a person with symptomatic, laboratory-confirmed COVID-19 or a person under investigation. Close contacts should monitor their health; they should call their healthcare provider right away ifthey develop symptoms suggestive of COVID-19 (e.g., fever, cough, shortness of breath) (see [place] Guidance for Risk Assessment and Public Health Management of Persons with Potential Coronavirus Disease 2019 (COVID-19) Exposure in Travel-associated or Community Settings.) Close contacts should also follow these recommendations: Make sure that you understand and can help the patient follow their healthcare provider s instructions for medication(s) and care. You should help the patient with basic needs in the home and providesupport for getting groceries, prescriptions, and other personal needs. Monitor the patient s symptoms. If the patient is getting sicker, call his or her healthcare provider and tell them that the patient has laboratory-confirmed COVID-19. This will help the healthcare provider s office take steps to keep other people in the office or waiting room from getting infected. Ask the healthcare provider to call the local or state health department for additional guidance. If the patient has a medical emergency and you need to call 911, notify the dispatch personnel that the patient has, or is being evaluated for COVID-19. Household members should stay in another room or be from the patient as much as possible.Household members should use a separate bedroom and bathroom, if available. Prohibit visitors who do not have an essential need to be in the home. Household members should care for any pets in the home. Do not handle pets or other animals while sick. For more information, see COVID-19 and Animals. Make sure that shared spaces in the home have good air flow, such as by an air conditioner or an opened window, weather permitting. Perform hand hygiene frequently. Wash your hands often with soap and water for at least 20 seconds or use an alcohol-based hand facility technician that contains 60 to 95% alcohol, covering all surfaces of your hands and rubbing them together until they feel dry. Soap and water should be used preferentially if hands are visibly dirty. Avoid touching your eyes, nose, and mouth with unwashed hands. The patient should wear a facemask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 tablet 4 mg (COMPLETED) 4 mg, Oral, ONCE, 1 dose, On Viviane 10/31/22 at 0000 0026 (Given - Provid er: Ramone Rausch RN) Care Teams (unrecognized sec tion and content) Staff Readiness Officer Relationship Specialty Start Date End Date Obed Ho MD [address] [place], [place] [phone] PCP - General Family Medicine 09/14/20 Staff Readiness Officer Relationship Specialty Start Date End Date Nicole Rocha MD [address] [place] [address] [phone] PCP - General Family Medicine 01/28/21 Staff Readiness Officer Relationship Specialty Start Date End Date Nicole Rocha MD [address] [place] [address] [phone] PCP - General Family Medicine 01/28/21 Staff Readiness Officer Relationship Specialty Start Date End Date Nicole Rocha MD [address] [place] [address] [phone] PCP - General Family Medicine 01/28/21 Staff Readiness Officer Relationship Specialty Start Date End Date Nicole Rocha MD [address] [place] [phone] PCP - General Family Medicine 01/28/21 Staff Readiness Officer Relationship Specialty Start Date End Date Johana Ayala MD [address] [facility] [address] [place] [phone] PCP - General Family Medicine 05/07/21 Staff Readiness Officer Relationship Specialty Start Date End Date Johana Ayala MD [address] [phone] PCP - General Family Medicine 05/07/21 Staff Readiness Officer Relationship Specialty Start Date End Date Johana Ayala MD [address] [phone] PCP - General Family Medicine 05/07/21 Staff Readiness Officer Relationship Specialty Start Date End Date Johana Ayala MD [address] [phone] PCP - General Family Medicine 05/07/21 Staff Readiness Officer Relationship Specialty [place] [address] [place] [phone] PCP - General Family Medicine 05/07/21 Team Status: Inactive Member Role Status Dates CONRADO SnowdenC Attending Provider Activ e Staff Readiness Officer Relationship Specialty Start Date End Date Johana Ayala MD [address] [phone] PCP - General Family Medicine 05/07/21 Staff Readiness Officer Relationship Specialty Start Date End Date Johana Ayala MD [address] [phone] PCP - General Family Medicine 05/07/21 Staff Readiness Officer Relationship Specialty Start Date End Date Johana Ayala MD [address] [phone] PCP - General Family Medicine 05/07/21 Staff Readiness Officer Relationship Specialty Start Date End Date Mandymaico Juanita, [address] [address] PCP - General Nurse Practitioner 09/02/22 Staff Readiness Officer Relationship Specialty Start Date End Date MandyJuanita nina, [address] [phone] PCP - General Nurse Practitioner 09/02/22 Staff Readiness Officer Relationship Specialty Start Date End Date [facility] [place] [address] [place] [phone] PCP - General Nurse Practitioner 09/02/22 Staff Readiness Officer Relationship Specialty Start Date End Date BarbaranadeemJuanita nina ODILIA Cullen [address] [place] [phone] PCP - General Physician Culinary Worker 04/29/22 Staff Readiness Officer Relationship Specialty Start Date End Date Juanita Lewis ODILIA Cullen [address] [place] [address] PCP - General Physician Culinary Worker 04/29/22 Goals (unrecognized section and content) Goals may be documented in a n alternate section Includes: Active GoalsNo Active Goals Recorded Includes: Active GoalsNo Active Goals Recorded Includes: Active GoalsNo Active Goals Recorded Includes: Active GoalsNo Active Goals Recorded Includes: Active GoalsNo Active Goals Recorded Includes: Active GoalsNo Active Goals Recorded Includes: Active GoalsNo Active Goals Recorded Includes: Active GoalsNo Active Goals Recorded Includes: Active GoalsNo Active Goals Recorded Includes: Active GoalsNo Active Goals RecordedNot on filedocumented as of this encounter Includes: Active GoalsNo Active Goals Recorded Includes: Active GoalsNo Active Goals Recorded Includes: Active GoalsNo Active Goals RecordedNot on filedocumented as of this encounter Includes: Active GoalsNo Active Goals Recorded No data available for this section FOR RECORDS PERTAINING TO PATIENTS WHO ARE OR HAVE BEEN ENROLLED IN A CHEMICAL DEPENDENCY/SUBSTANCEABUSE PROGRAM, SOME INFORMATION MAY BE OMITTED. This clinical summary was aggregated from multiple sources. Caution should be exercised in using it in the provision of clinical care. This summary normalizes information from multiple sources, and as a consequence, information in this document may materially change the coding, format and clinical context of patient data. In addition, data may be omitted in some cases. CLINICAL DECISIONS SHOULD BE BASED ON THE PRIMARY CLINICAL RECORDS. [facility]. provides no warranty or guarantee of the accuracy or completeness of information in this document.
--- NOTE | 2023-10-26 19:14 | XR_ITS ---
The [address] [address] Patient Name: CYNDEE HURT MRN: [id number] date: 1995 Sex: F Assigned Patient Location: ER Current Patient Location: ED.MAIN Accession/Order Number: [id number] Exam Date: 10/26/2023 19:30 Report Date: 10/26/2023 20:51 At the request of: TAWNY ISIDRO Procedure: XR knee LT 4V EXAM: XR knee LT 4V TECHNIQUE: AP, lateral, oblique and sunrise views left knee HISTORY: left knee pain with sunrise COMPARISON: None. FINDINGS: No acute fracture or dislocation. Soft tissues are unremarkable. No arthritic changes. XR/XR knee LT 4V IMPRESSION: No acute findings. Electronically authenticated by: BEVERLY GILLESPIE Date: 10/26/2023 20:51
--- NOTE | 2023-10-26 19:16 | ED.LOWEXI1 ---
HPI HPI - Extremity Injury (Lower) General Chief Complaint: Extremity Injury, Lower Stated Complaint: LOWER EXTREMITY PAIN, LEFT Time Seen by Provider: 10/26/23 19:05 Source: patient Mode of arrival: Wheelchair Limitations: no limitations History of Present Illness HPI Narrative: Patient is a 28-year-old female presents to the ER with concerns of left anterior lateral knee pain. Patient states she got up today and felt a pop in her knee. She has a prior history of IT band friction syndrome after an injury remotely in [place] getting pushed down the steps. Patient states she has been gradually working on weight loss, but is unsure about going into work tonight with pain in her knee. Patient denies any fevers or chills. She denies any chance of . Patient states she recently saw a new provider in the area since moving from [place] but cannot recall their name. She appears in no distress at bedside but notes pain in her left knee is positional. Onset (ago): hour(s) Injury: Left: knee Place: Reports home Severity: moderate Relieving factors: Reports nothing Exacerbating factors: Reports movement Associated symptoms: Reports snap/pop sensation; Denies swelling Related Data Previous Rx's ?Medication ?Instructions ?Recorded prednisone 20 mg tablet 40 mg (2 x 20 mg) PO DAILY 5 days 10/26/23 #10 tabs Allergies Allergy/AdvReac Type Severity Reaction Status Date / Time codeine Allergy Severe Anaphylaxis Verified 10/26/23 19:06 metformin Allergy Severe Anaphylaxis Verified 10/26/23 19:06 ketorolac [From Toradol] Allergy Mild Rash Verified 10/26/23 19:06 Opioid HPI Opioid Management Most Recent Pain and Opioid Data: No Data to Display Review of Systems ROS Constitutional Denies: fever or chills Eyes Denies: change in vision Ears, nose, mouth, and throat Denies: throat pain Cardiovascular Denies: chest pain Respiratory Denies: shortness of breath Gastrointestinal Denies: abdominal pain or nausea Genitourinary Denies: painful urination Musculoskeletal Reports: extremity pain (left anterior lateral knee); Denies: back pain or neck pain Integumentary/Breast Denies: rash Neurological Denies: headache Hematologic/Lymphatic Denies: easy bruising PFSH PFSH Social History Little interest or pleasure in doing things: not at all Feeling down, depressed, or hopeless: not at all Exam Narrative Exam Narrative: Vital signs reviewed and nurse's notes. The patient is not hypoxic. General: Alert, no acute distress, patient resting comfortably Skin: warm, intact, no pallor noted Head: Normocephalic, atraumatic Eye: Normal conjunctiva, no exudates Respiratory: No acute distress, lungs CTA Musculoskeletal: No evidence of deformity to the left knee. There is no significant swelling. There is no ecchymosis. No erythema or warmth noted. DP and PT pulses are intact 2+. Normal sensation, normal capillary refill less than 2 seconds. There is no cyanosis or mottling noted. The patient has tenderness to anterior lateral aspect of left knee. The patient has no laxity with varus or valgus stressing. No pain with MCL/ LCL stress. The patient has negative anterior drawer,. mild valgus appearance and lateral tracking patella appreciated. + patella apprehension. The patient was able to flex and extend although with mild pain. Patient was able to extend leg off the cart without difficulty. No tenderness noted to the 5th MT, midfoot, ankle or proximal fibular area. There is no pain with calcaneal squeeze, achilles tendon is intact and no defect is palpated. The patient has no pelvic instability. The patient has no shortening or rotation noted to the bilateral lower extremities. Neurological: alert and orient x4, normal sensory and motor observed. Psychiatric: Cooperative Constitutional Vital Signs, click to edit/add: Last Vital Signs Temp 98.4 F 10/26/23 18:59 Pulse 94 H 10/26/23 18:59 Resp 16 10/26/23 18:59 BP 136/95 H 10/26/23 18:59 Pulse Ox 99 10/26/23 18:59 O2 Del Method Room Air 10/26/23 18:59 Course Vital Signs Vital signs: Vital Signs Temperature 98.4 F 10/26/23 18:59 Pulse Rate 94 H 10/26/23 18:59 Respiratory Rate 16 10/26/23 18:59 Blood Pressure 136/95 H 10/26/23 18:59 Pulse Oximetry 99 10/26/23 18:59 Oxygen Delivery Method Room Air 10/26/23 18:59 Temperature 98.4 F 10/26/23 18:59 Pulse Rate 94 H 10/26/23 18:59 Respiratory Rate 16 10/26/23 18:59 Blood Pressure 136/95 H 10/26/23 18:59 Pulse Oximetry 99 10/26/23 18:59 Oxygen Delivery Method Room Air 10/26/23 18:59 MDM - Extremity Injury (Lower) MDM Narrative Medical decision making narrative: Discussed exam and symptoms, no significant effusion. Suspect lateral tracking patella. Patient agreeable to x-ray. We discussed course of anti-inflammatories possibly steroid with risks and benefits reviewed. Patient given Tylenol here for pain, ice. Patient agreeable to Bryan wrap for support, off work today and tomorrow pending availability to follow-up with PCP/orthopedics for further evaluation. We discussed the possible J- Brace pending physical therapy given history of symptoms. The patient is to followup with primary care physician in next 2-3 days or to return to the emergency department should any of the signs or symptoms worsen or new symptoms develop. Patient had questions answered. The patient agrees with the following Diagnosis and Treatment plan and the patient will be discharged home. Imaging Data 4 view left knee xray:: Attestation: I personally reviewed and interpreted this imaging study as follows: My impression: no acute fx. normal alignment, no effusion. Discharge Plan Discharge Chief Complaint: Extremity Injury, Lower Clinical Impression: Acute pain of left knee, Chondromalacia of left patella Patient Disposition: Home, Self-Care Time of Disposition Decision: 20:08 Condition: Good Mode of Transportation: Private Vehicle Prescriptions / Home Meds: New prednisone 20 mg tablet 40 mg PO DAILY 5 Days Qty: 10 0RF Print Language: Barbadian Instructions: Knee Pain (ED), Patellofemoral Pain Syndrome Exercises (ED) Additional Instructions: Please call your pcp for follow up: Consider J- Brace and or Physical therapy for Left knee: Local orthopedics given, can call Friday to make appt. Referrals: BEATRIZ WELCH [Nurse Practitioner] - As soon as possible Ari Cam MD [Physician] - 1-2 weeks Discharge Date/Time: 10/26/23 20:20
[2023-10-26] MEDS: ACETAMINOPHEN 500 MG TABLET 1000 MG PO (19:53)
[2023-10-26 20:15] VITALS: BP 138/88; PULSE 78; O2SAT 99
== END 2023-10-26 20:20 | disposition home or self-care (01) ==
PROVIDERS: Emergency Provider Emergency Medicine
DX: M22.42 Chondromalacia patellae, left knee (principal); M25.562 Pain in left knee
CPT/HCPCS: 73564; 99283

== ENCOUNTER 2024-11-24 21:03 | Emergency (ER) | payer OTHER, SELFPAY ==
--- OUTSIDE RECORDS SUMMARY | 2024-11-24 21:13 | XMS_ITS | CCD ---
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 Name Role Phone ENOCH-VICENTE, AMELIAAM A Unavailable Unavailable JUANITA DILLARD Unavailable Unavaila EVETTE Abreu Unavailable Unavailable LARISSA SUGGS Unavailable Unavailable ADRIANNA SALINAS Primary Care Unavailable GLORIA HENRY Admitting Unavailable GLORIA HENRY Attending Unavailable GLORIA HENRY Consulting Unavailable Unavailable Primary Care Provider UnavailCHAR Sterling Attending Unavailable TUNDE CASTRO Attending Unavailable Unavailable Primary Care Provider UnavailAdrianna Gil Primary Care Physician Unavailab Anita Nelson Physician Unavailable Al-Vicente, Issam A Primary Care Provider Unavailab yenifer Al-Vicente, Issam A Primary Care Provider Unavailab le Unavailable Primary Care Provider Unavailkoffi Ho MD, Obed Primary Care Provider Nicole Rocha MD Primary Care Provider Johana Ayala MD [...] Provider Kb Pelaez CNP Primary Care Provider Kb Pelaez CNP Attending Unavailable Heather HARTLEY, Johana Abrams Attending Sayra Lewis PA-C, [facility] Primary Care Provider [facility] Provider Juanita Major Primary Care Provider VERENICE LLANES Attending Unavailable MARIO ALBERTOVERENICE PROCTOR Attending Unavailable [facility] Referring Unavailable [facility] Primary Care Unavailable JESSICA AGUSTIN Referring Unavailable [facility] AMJAD Primary Care Unavailable DREAD FUENTES Referring Unavailabl e JAMIE, AMD Primary Care Unavailable SRAVANTHI BAL Referring Unavailable [facility] Primary Care Unavailable ODALYS MOORE Referring Unavailable [facility] Primary Care Unavailable [facility] Referring Unavailable [facility] Primary Care Unavailable KB PELAEZ Referring Unavailable [facility] Primary Care Unavailable RAYKB Referring Unavailable [facility] Primary Care Unavailable Robbi KERNSS, Tazflaquita Unavailable [facility] J[facility] E Referring Unavailable [facility] E Primary Care Unavailable KIRSTEN BLANDON Attending Unavailable [facility] E Referring Unavailable [facility] E Primary Care Unavailable ROSALIE COX Attending Unavailable POLINA FLOWERS Attending Unavailable [facility] E Referring Unavailable [facility] E Primary Care Unavailable [facility] Primary Care Physician Unavailab EMMIE Jacobsen Attending Unavaila YEISON Mccracken Primary Care Unavailable JEREMY, ANNA S Consulting Unavailable EMMIE GLYNN Admitting Unavaila richar [facility] Primary Care Unavailable SALVADOR AVILA JANNETH GEORGIANA Adams~[id number] Atte nding Unavailable Anup PRINCE Referring Unavailable YEISON SWANSON Attending Unavailable YEISON SWANSON Attending Unavailable YEISON SWANSON Attending Unavailable YEISON SWANSON Attending Unavailable Flakito Armendariz Attending Unavailable [facility] Juanita HARTLEY Primary Care Provider Allergies Allergy Classification Reported Allergen(s) Allergy Type Date of Onset Reaction(s) Facility Cabbage preparation (5 sources) Cabbage preparation Drug Allergy 8 [facility] Latex (5 sources) Latex Substance Allergy 9 [facility] metFORMIN (5 sources) metFORMIN Drug Allergy 9 [facility] Opioid Agonists (5 sources) Codeine Drug Allergy 0 [facility] tomato allergenic extract (5 sources) tomato allergenic extract Drug Allergy 1 Anaphylaxis [facility] (19 sources) Cabbage preparation; Translations: [cabbage] Drug Allergy 7 Anaphylaxis [facility] Rep[facility] (19 sources) metFORMIN; Translations: [metFORMIN] Drug Allergy 9 Anaphylaxis [facility] Rep[facility] (20 sources) Cabbage preparation Drug Allergy 8 [place], [place] (20 sources) Latex; Translations: [Latex] Propensity to adverse reactions to drug 9 Rash [place], [place] (20 sources) metFORMIN; Translations: [metformin] Drug Allergy 9 Hives, Anaphylaxis [place] (20 sources) Dove Flavor; Translations: [dove flavor] Propensity to adverse reactions to drug 8 [facility] (20 sources) Eggs Or Egg-Derived Products Propensity to adverse reactions to drug 8 Nausea And Vomiting [place] (20 sources) Flavoring Agent; Translations: [FLAVORING AGENT] Propensity to adverse reactions to drug 8 Hives, Rash [place] (20 sources) Nutritional Supplements; Translations: [NUTRITIONAL SUPPLEMENTS] Propensity to adverse reactions to drug 8 [place] (20 sources) Codeine; Translations: [codeine] Drug Allergy 0 Anaphylaxis, Eruption of skin (disorder), Rash [place] (2 sources) egg extract Drug Allergy 7 Anaphylaxis [facility] (6 sources) GRAPEFRUIT EXTRACT; Translations: [grapefruit] Drug Allergy 7 [facility] (1 source) Lactose Drug Allergy 7 Nausea [facility] (20 sources) Ketorolac; Translations: [KETOROLAC TROMETHAMINE] Drug Allergy 1 [facility] (20 sources) tomato allergenic extract; Translations: [TOMATO] Drug Allergy 1 [facility] (1 source) Codeine Drug Allergy 2 [facility] Repository (17 sources) Ketorolac; Translations: [Toradol] Drug Allergy 2 Skin Rashes / Eruption of skin [facility] Repository (1 source) multiple foods; Translations: [multiple foods] Propensity to adverse reactions (disorder) 2 [facility] Repository (16 sources) tomatoes; Translations: [Tomatoes] Allergy to substance 1 [facility] (11 sources) Methocarbamol; Translations: [methocarbamol] Drug Allergy 2 Rash [facility] (14 sources) dove allergenic extract Drug Allergy 3 Skin Rashes / Eruption of skin [facility] (14 sources) GRAPEFRUIT EXTRACT Drug Allergy 3 Anaphylaxis [facility] (14 sources) Lactose (non-medical use) Allergy to substance 3 Nausea [facility] (1 source) Egg; Translations: [eggs] Propensity to adverse reactions to food (disorder) [facility] Repository (4 sources) Lactose (non-medical use) Propensity to adverse reactions to drug 3 Nausea Only [facility] (2 sources) Ketorolac; Translations: [KETOROLAC] Drug Allergy 2 Weal (disorder) [facility] Repository (4 sources) metFORMIN; Translations: [metFORMIN HCl 1000 MG Oral Tablet] Drug Allergy 4 [facility] (3 sources) Methocarbamol; Translations: [Robaxin 100 MG/ML Injection Solution] Drug Allergy 4 Skin Rashes / Eruption of skin [facility] (2 sources) Shellfish; Translations: [SHELLFISH DERIVED] Propensity to adverse reactions to food (disorder) 4 Facial Swelling [facility] Repository (3 sources) EGG DERIVED; Translations: [EGG DERIVED] Propensity to adverse reactions to food (disorder) 8 Anaphylaxis [facility] Repository (1 source) glyBURIDE / metFORMIN; Translations: [glyburide-metf ormin] Drug Allergy [facility] Repository (1 source) No Known Medication Allergies; Translations: [No Known Medication Allergies] Propensity to adverse reactions (disorder) [facility] Repository Medications Current Medications Medication Drug Class(es) Dates Sig (Normalized) Sig (Original) acetaminophen 500 mg oral tablet (20 sources) Start: 05-27-2022 End: 04-09-2023 Acetaminophen 500 MG Oral Tablet 04/09/2023 Provider: Juanita Lewis PA-C Start: 12-24-2021 take 2 tablets by mo uth every six hours as needed for pain [...] Wheezing September 30, 2018 Active Start: 09-30-2018 End: [...] complication, without long-term current use of insulin ([facility]) Use as instructed 1 each 0 07/02/2021 Active brompheniramine maleate 0.4 mg/ml / dextromethorphan hydrobromide 2 mg/ml / pseudoephedrine hydrochloride 6 mg/ml oral solution (3 sources) alpha-Adrenergic Agonist, Uncompetitive J-zkjksv-A-aspartat e Receptor Antagonist, Sigma-1 Agonist Start: 02-05-2023 [...] PA-C Start: 01-24-2023 take 2 puff(s) by [facility] twice daily SYMBICORT 160-4.5 mcg/actuation inhaler [...] 20 mg/ml oral suspension (1 source) Uncompetitive E-eorpiz-P-aspartat e Receptor Antagonist, Sigma-1 Agonist Start: 10-31-2022 [...] Oral Capsul e 05/17/2022 - 09/18/2022 Provider: Juaniat Lewis PA-C Start: 05-17-2022 Fish Oil 1200 [...] take 450 mg by mouth twice daily [place] Carbonate Active 450 MG PO Twice daily [...] mg Start: 08-03-2019 take 1 tablet by brab th twice daily at mealtime naproxen (NAPROSYN) [...] Start: 10-20-2021 take 1 capsule by [facility] at bedtime prazosin (MINIPRESS) 1 MG capsule take 1 capsule by mouth at bedtime 0 10/20/2021 Active Start: 12-13-2019 take 1 capsule by mo ut once daily prazosin (MINIPRESS) 2 mg capsule [...] daily 30 tablet 12 07/02/2021 08/01/2021 Active SE- 19 CHEWABLE 29 mg iron- 1 [...] 2017 Discontinued take 1 tablet by barb th once daily sertraline (ZOLOFT) 50 MG tablet [...] sources) Start: 09-18-2022 Vitamin D (Erg ocalciferol) [id number] UNIT Oral Capsule 09/18/2022 Provider: Completed/Discontinued Medications [...] End: 08-08-2019 diphenhydrAMINE (BENADRYL) injection 25 mg [id number] 0.3 ml EPINEPHrine 1 mg/ml auto-injector (20 [...] Amide Local Anesthetic Start: 04-09-2023 Lidocaine-EPINEPHrine 2 %-1:[id number] IJ SOLN 04/09/2023 Juanita Lewis PA-C Comment [...] Nicotine (Polacrilex) Discontinued 2 MG BUCCAL Q2H 30 July 05, 2019 12:00am May 19, 2020 [...] Start: 06-19-2021 take 1 tablet by barb every eight hours as needed for nausea [...] 04-23-2017 End: 04-23-2017 Sucralfate April 23, 2017 [facility] 2017 Discontinued Start: 04-23-2017 End: 04-23-2017 Sucralfate Discontinued TABL ET April 23, 2017 1:00am April 23, 2017 10:59am topiramate 25 mg oral tablet (20 sources) Start: 09-18-2022 End: 06-16-2023 Topamax 25 MG Oral Tablet 10/09/2022 - 01/24/2023 Provider: Juanita Lewis PA-C Vitamin D (Ergocalciferol) 1 .25 MG (87166 UT) Oral Capsule (13 sources) Start: 05-17-2022 End: 09-18-2022 Vitamin D (Ergocalciferol) 1 .25 MG (48175 UT) Oral Capsule 05/17/2022 - 09/18/2022 Provider: Juanita Lewis PA-C Start: 05-17-2022 Vitamin D (Erg ocalciferol) 1.25 MG (26165 UT) Oral Capsule 05/17/2022 Provider: Juanita Lewis [...] Chronic Contraceptive and procreative management (6 sources) Prescription of contraception; Translations: [Insertion of subcutaneous contraceptive] Onset: 07-24-2020 07-24-2020 Episodic Deficiency and other [...] (BMI) 45.0-49.9, adult] Onset: 09-02-2023 Chronic Other nutritional; endocrine; and metabolic disorders (2 sources) Severe obesity; Translations: [Morbid (severe) obesity due to excess calories] Onset: 06-27-2021 06-27-2021 Chronic Other upper respiratory disease (1 source) Pain in throat Onset: 02-05-2023 Episodic Personality disorders (20 sources) Borderline personality disorder; Translations: [Borderline personality disorder] Onset: 08-26-2017 08-26-2017 Chronic Pneumonia (except that caused by tuberculosis or sexually transmitted disease) (1 source) Infective pneumonia; Translations: [Pneumonia due to organism] Episodic Poisoning by nonmedicinal substances (2 sources) Toxic effect of unspecified seafood, accidental (unintentional), initial encounter; Translations: [Allergic reaction caused by seafood] Onset: 04-30-2023 04-30-2023 Episodic Residual codes; unclassified [...] cigarettes, uncomplicated; Translations: [Nicotine dependence] Onset: 04-14-2019 04-09-2023 Chronic Comment on above: Added secondary to [...] of vulva and vagina] Onset: 11-11-2022 Unclassified (4 sources) Consent for procedure given; Translations: [Consent Form For Procedure on File] Onset: 04-09-2023 Unclassified (4 sources) Nexplanon Implant Procedure; Translations: [Nexplanon Implant Procedure] Onset: 04-09-2023 Unclassified (4 sources) Nexplanon Implant Wound Care; Translations: [Nexplanon Implant Wound Care] Onset: 04-09-2023 Unclassified (2 sources) Onset: 08-15-2021 08-15-2021 Results Test Name Value Interpretation Reference Range Facility Ambulatory Visit Summaryon 0 10-30-2023 Ambulatory Visit Summary Ambulatory Visit Summary SUSY DIAZ :1995 Visit Date:10/30/2023 Ambulatory Visit Instructions Your Diagnosis Former smoker BMI 45.0-49.9, adult Class 2 severe obesity due to excess calories with serious comorbidity and body mass index (BMI) of 35.0 to 35.9 in adult Body mass index [BMI] 35.0-35.9, adult Your Care Team Attending Physician - YEISON SWANSON CNP Primary Care Physician - YEISON SWANSON CNP This Is Your Medications List budesonide-formoterol (Symbicort 160/4.5 inhalation aerosol with adapter) oxcarbazepine (oxcarbazepine 300 mg Tab) prazosin (prazosin 2 mg oral capsule) sumatriptan (SUMAtriptan 50 mg Tab) topiramate (topiramate 25 mg Tab) trazodone (traZODONE 50 mg Tab) venlafaxine (venlafaxine 75 mg Cap-ER) Procedures Performed Rotator cuff repair, wisdom teeth extraction. Discharge Vitals Temperature (Oral) 36.8 ?C Heart Rate (Peripheral) 84 Respiratory Rate 20 Blood Pressure 132/86 Height 164.5 cm Height 65 in Weight 124.6 kg Weight 274.12 lb BMI 46.05 Medications What How Much When Instructions Unchanged budesonide-formoterol (Symbicort 160/ 4.5 inhalation aerosol with adapter) 2 Puffs Inhalation 2 times a day Unchanged oxcarbazepine (oxcarbazepine 300 mg Tab) TAKE 1 TABLET BY MOUTH TWICE DAILY Unchanged prazosin (prazosin 2 mg oral capsule) 1 Capsules By Mouth 3 times a day Unchanged sumatriptan (SUMAtriptan 50 mg Tab) TAKE 1 TABLET BY MOUTH AT ONSET OF MIGRAINE. MAY REPEAT ONCE AFTER 2 HOURS IF NEEDED. DO not exceed TWO tabs/ day. Unchanged topiramate (topiramate 25 mg Tab) TAKE 1 TABLET BY MOUTH EVERY NIGHT AT BEDTIME Unchanged trazodone (traZODONE 50 mg Tab) 0.5 Tablets By Mouth Once a day (at bedtime) Unchanged venlafaxine (venlafaxine 75 mg Cap-ER) TAKE 1 CAPSULE BY MOUTH ONCE DAILY Allergies Toradol (Hives) codeine (Rash) metFORMIN (hives) [...] for choosing us for your care. Normal [facility] Family Medicine Office/Clini c Noteon 10-30-2023 Family Medicine Office/Clinic Note Family Medicine Office/Clinic Note HPI Staff Susy is a 28 year old female presenting with needing a doctors note that she can go back to work, and ER advised not to do stairs [facility]- 10/26/23- CC; left knee Xray done- normal Onset: Friday night at work patella Location: left knee Duration: Characteristics:_ cant walk on stairs some swelling when she walks on it, stairs she can not go on Aggravated by stairs she can not go on Relieved by: Tylenol ice and heat nothing helps Timing:_ Associated Symptoms:_ none History of Present Illness Patient presents for a work release. She reports she was in the ED at [facility] on 10/26/2023 and was diagnosed with chondromalacia of the left knee. She received prednisone which she is still taking and was encouraged to f/u with ortho. She states the MD at the ED told her to not walk up and down stairs and her employer is requiring a note for the same which is why she is here today. Review of Systems PHQ Score Initial Depression Screen Score: 0 SCORE Constitutional: no fever, no chills, no sweats, no weakness Skin: no Jaundice, no rash, no lesions, nopetechiae Respiratory: no shortness of breath, no cough, no orthopnea, no wheezing Cardiovascular: no chest pain, no palpitations, no edema Musculoskeletal: no back pain, no trauma Neurologic: no headache, no dizziness, no numbness, no weakness Psychiatric: no sleeping problems, no irritability, no mood swings/depression. Additional ROS info: Except as noted in the above Review of Systems and in the History of Present Illness all other systems have been reviewed and are negative or noncontributory. Physical Exam Vitals & Measurements T: 36.8 ?C(Oral) HR: 84(Peripheral) RR: 20 BP: 132/86 SpO2: 97% HT: 65 in HT: 164.5 cm WT: 124.6 kg WT: 274.12 lb BMI: 46.05 General: alert, no acute distress Cardiovascular: regular rate and rhythm, normal peripheral perfusion Respiratory: Lungs CTA, respirations non labored Extremities: no deformity, no trauma, mild tenderness with flexion & decreased ROM Neurological: oriented x 4, LOC appropriate for age speech normal Assessment/Plan 1. Chondromalacia of left knee (M94.262: Chondromalacia, left knee) Avoid walking up and down stairs until evaluated by ortho Note completed for employer f/u after seen by ortho 2. Former smoker (Z87.891: Personal history of nicotine dependence) Encouraged to continue as a non- smoker 3. BMI 45.0-49.9, adult (Z68.42: Body mass [...] management will be followed at subsequent visits. 4. Class 2 severe obesity due to excess calories with serious comorbidity and body mass index (BMI) of 35.0 to 35.9 in adult (E66.01: Morbid (severe) obesity due to excess calories) The standard range for ages 18 and older is >=18.5 and < 25 kg/m2. Your BMI today was above this range, this falls in the overweight to obese category and there are medical benefits to weight loss. We can offer counselling, referral, and/or medical support in addressing this problem. Your BMI and weight management will be followed at subsequent visits. 5. Body mass index [BMI] 35.0-35.9, adult (Z68.35: Body mass index [BMI] 35.0-35.9, adult) The standard range for ages 18 and older is >=18.5 and < 25 kg/m2. Your BMI today was above this range, this falls in the overweight to obese category and there are medical benefits to weight loss. We can offer counselling, referral, and/or medical support in addressing this problem. Your BMI and weight management will be followed at subsequent visits. Total time spent preparing the chart, conducting of the encounter with the patient and family and time spent documenting, reviewing, and ordering tests was 30 minutes. Follow-up No qualifying data available Patient Education Knee Rehabilitation in the Home Problem List/Past Medical History Ongoing BMI 45.0-49.9, adult Smoker Historical Arthritis Depression Gastric ulcer HTN - Hypertension Hypoglycemia Panic disorder PTSD - Post-traumatic stress disorder Procedure/Surgical History Rotator cuff repair, wisdom teeth extraction. Medications oxcarbazepine 300 mg Tab prazosin 2 mg oral capsule, 2 mg= 1 cap(s), Oral, TID SUMAtriptan 50 mg Tab Symbicort 160/4.5 inhalation aerosol with adapter, 2 puff(s), Inhalation, BID topiramate 25 mg Tab traZODONE 50 mg Tab, 25 mg= 0.5 tab(s), Oral, Once a day (at bedtime) venlafaxine 75 mg Cap-ER Allergies Toradol (Hives) codeine (Rash) metFORMIN (hives) Social History Alcohol - Denies Alcohol Use, 12/21/2016 Current, Beer, 1-2 times per month, 08/30/2019 1-2 times per year, 04/30/2018 Current, 1-2 times per year, 09 (more content not included)... Normal [facility] Comment on above: Result Comment: Elec tronically Signed By: YEISON SWANSON CNP.linsey\Date and Time Signed: 10/30/23 12:59 EDT Provider Letteron 10-30-2023 Provider Letter Provider Letter October 30, 2023 SUSY DIAZ [address] [place] [address] : 1995 To Whom It May Concern, Susy may return to work 2023 but cannot go up and down steps pending Orthopedic appointment in November Date of Illness: From: _ To: _ May Return to Work On: Restrictions: _ Comments: _No going up and down steps pending Orthopedic appointment Sincerely, Family [facility] [place] [address] [place] [address] [facility] Provider Letteron 10-08-2023 Provider Letter Provider Letter October 08, 2023 SUSY DIAZ [address] [place] [address] SUSY DIAZ 1995 Dear Susy , We have been trying to reach you with no success. It is important that you return our call regarding your recent hospital discharge upon receiving this letter. Also, at the time of your call, please provide us with your current information. Thank you for your prompt attention to this matter. Sincerely, Edgar Lopez RN [employer] [phone] [facility] Hemoglobin A1Con 10-01-2023 Glucose [Mass/Vol] 111 mg/dL Normal [facility] Comment on above: Result Comment: The ADA and AACC recommend providing the estimated average glucose result to permit better patient understanding of their HBA1c result. Performed By: #### L IPR #### [facility] [address] [place] [address] Phlebotomist: Rafiq Feránndez DO #### GLYHGB #### [facility] [address] [place] [id number] Phlebotomist: Moisés Harp MD HbA1c (Bld) [Mass fraction] 5.5 % Normal 4.0-6.0 [facility] Comment on above: Performed By: #### L IPR #### [facility] [address] [place] [address] Phlebotomist: Rafiq Fernández DO #### GLYHGB #### [facility] [employer] [address] [place] [address] Phlebotomist: Moisés Harp MD Lipid Profileon 10-01-2023 Cholesterol [Mass/Vol] 135 mg/dL Normal <200 [facility] Comment on above: Result Comment: Cholesterol Guidelines: <200 Desirable 200-240 Borderline >240 Undesirable Performed By: #### L IPR #### [facility] [address] [place] [address] Phlebotomist: Rafiq Fernández DO #### GLYHGB #### [address] [address] Phlebotomist: Moisés Harp MD Cholesterol in HDL [Mass/Vol] 36 mg/dL Low >40 [facility] Comment on above: Result Comment: HDL Guidelines: <40 Undesirable 40-59 Borderline >59 Desirable Performed By: #### L IPR #### [facility] [address] [place] [address] Phlebotomist: Rafiq Fernández DO #### GLYHGB #### [address] [address] Phlebotomist: Moisés Harp MD Cholesterol in LDL [Mass/Vol] 83 mg/dL Normal 0-130 [facility] Comment on above: Result Comment: LDL Guidelines: <100 Desirable 100-129 Near to/above Desirable 130-159 Borderline >159 Undesirable Direct (measured) LDL and calculated LDL are not interchangeable tests. Performed By: #### L IPR #### [facility] [address] [place] [address] Phlebotomist: Rafiq Fernández DO #### GLYHGB #### [address] [address] Phlebotomist: Moisés Harp MD Cholesterol.total/Ch olesterol in HDL [Mass ratio] 3.8 {ratio} Normal <5 [facility] Comment on above: Performed By: #### L IPR #### [facility] [place] [address] Phlebotomist: Rafiq Fernández DO #### GLYHGB #### [address] [address] Phlebotomist: Moisés Harp MD Triglyceride [Mass/Vol] 78 mg/dL Normal <150 [facility] Comment on above: Result Comment: Triglyceride Guidelines: <150 Desirable 150-199 Borderline 200-499 High >499 Very high Based on AHA Guidelines for fasting triglyceride, November 2011. Performed By: #### L IPR #### [facility] [place] [address] Phlebotomist: Rafiq Fernández DO #### GLYHGB #### [address] [address] Phlebotomist: Moisés Harp MD CBCon 09-30-2023 Erythrocyte distribution width (RBC) [Ratio] 17.0 % High 11.5-14.9 [facility] Comment on above: Performed By: #### C P, CBC, EDTOX, TSHX #### [facility] [address] [place] [address] Phlebotomist: Rafiq Fernández DO Hematocrit (Bld) [Volume fraction] 42.7 % Normal 36-46 [facility] Comment on above: Performed By: #### C P, CBC, EDTOX, TSHX #### [facility] [place] [address] Phlebotomist: Rafiq Fernández DO Hemoglobin (Bld) [Mass/Vol] 13.9 g/dL Normal 12.0-16.0 [facility] Comment on above: Performed By: #### C P, CBC, EDTOX, TSHX #### [facility] [address] [place] [address] Phlebotomist: Rafiq Fernández DO MCH (RBC) [Entitic mass] 25.3 pg Low 26-34 [facility] Comment on above: Performed By: #### C P, CBC, EDTOX, TSHX #### [facility] [address] [place] [address] Phlebotomist: Rafiq Fernández DO MCHC (RBC) [Mass/Vol] 32.7 g/dL Normal 31-37 [facility] Comment on above: Performed By: #### C P, CBC, EDTOX, TSHX #### [facility] [address] [place] [address] Phlebotomist: Rafiq Fernández DO MCV (RBC) [Entitic vol] 77.4 fL Low 80-100 [facility] Comment on above: Performed By: #### C P, CBC, EDTOX, TSHX #### [facility] [address] [place] [address] Phlebotomist: Rafiq Fernández DO Platelet mean volume (Bld) [Entitic vol] 9.3 fL Normal 6.0-12.0 [facility] Comment on above: Performed By: #### C P, CBC, EDTOX, TSHX #### [facility] [address] [place] [address] Phlebotomist: Rafiq Fernández DO Platelets (Bld) [#/Vol] 231 10*3/uL Normal 150-450 [facility] Comment on above: Performed By: #### C P, CBC, EDTOX, TSHX #### [facility] [address] [place] [address] Phlebotomist: Rafiq Fernández DO RBC (Bld) [#/Vol] 5.51 10*6/uL High 4.0-5.2 [facility] Comment on above: Performed By: #### C P, CBC, EDTOX, TSHX #### [facility] [address] [place] [address] Phlebotomist: Rafiq Fernández DO WBC (Bld) [#/Vol] 7.0 10*3/uL Normal 3.5-11.0 [facility] Comment on above: Performed By: #### C P, CBC, EDTOX, TSHX #### [facility] [address] [facility] [place] [address] Phlebotomist: Rafiq Fernández DO Comp Metabolic Profon 2023 ALT [Catalytic activity/Vol] 19 U/L Normal 5-33 [facility] Comment on above: Result Comment: SPEC IMEN MODERATELY HEMOLYZED, RESULTS MAY BE ADVERSELY AFFECTED Performed By: #### C P, CBC, EDTOX, TSHX #### [facility] [address] [facility] [place] [address] Phlebotomist: Rafiq Fernández DO AST [Catalytic activity/Vol] 26 U/L Normal <32 [facility] Comment on above: Result Comment: SPEC IMEN MODERATELY HEMOLYZED, RESULTS MAY BE ADVERSELY AFFECTED Performed By: #### C P, CBC, EDTOX, TSHX #### [facility] [address] [facility] [place] [address] Phlebotomist: Rafiq Fernández DO Potassium [Moles/Vol] 5.2 mmol/L Normal 3.7-5.3 [facility] Comment on above: Result Comment: SPEC IMEN MODERATELY HEMOLYZED, RESULTS MAY BE ADVERSELY AFFECTED Performed By: #### C P, CBC, EDTOX, TSHX #### [facility] [address] [place] [address] Phlebotomist: Fanelly, Rafiq, DO Albumin [Mass/Vol] 4.2 g/dL Normal 3.5-5.2 [facility] Comment on above: Performed By: #### C P, CBC, EDTOX, TSHX #### [facility] [address] [place] [address] Phlebotomist: Rafiq Fernández, DO Alkaline Phos 85 U/L Normal 35-104 [facility] Comment on above: Performed By: #### C P, CBC, EDTOX, TSHX #### [facility] [address] [place] [address] Phlebotomist: Rafiq Fernández DO Anion gap [Moles/Vol] 11 mmol/L Normal 9-17 [facility] Comment on above: Performed By: #### C P, CBC, EDTOX, TSHX #### [facility] [address] [place] [address] Phlebotomist: Rafiq Fernández, DO Bilirubin [Mass/Vol] 0.2 mg/dL Low 0.3-1.2 [facility] Comment on above: Performed By: #### C P, CBC, EDTOX, TSHX #### [facility] [address] [place] [address] Phlebotomist: Rafiq Fernández DO Calcium [Mass/Vol] 8.7 mg/dL Normal 8.6-10.4 [facility] Comment on above: Performed By: #### C P, CBC, EDTOX, TSHX #### [facility] [address] [place] [address] Phlebotomist: Rafiq Fernández, DO Chloride [Moles/Vol] 106 mmol/L Normal 98-107 [facility] Comment on above: Performed By: #### C P, CBC, EDTOX, TSHX #### [facility] [address] [place] [address] Phlebotomist: Rafiq Fernández DO CO2 [Moles/Vol] 20 mmol/L Normal 20-31 [facility] Comment on above: Performed By: #### C P, CBC, EDTOX, TSHX #### [facility] [address] [facility] [place] [address] Phlebotomist: Rafiq Fernández DO Creatinine [Mass/Vol] 0.5 mg/dL Normal 0.5-0.9 [facility] Comment on above: Performed By: #### C P, CBC, EDTOX, TSHX #### [facility] [address] [facility] [place] [address] Phlebotomist: Rafiq Fernández DO GFR/1.73 sq M.predicted among non-blacks MDRD (S/P/Bld) [Vol rate/Area] mL/min/{1.73_m2} Normal >60 [facility] Comment on above: Result Comment: These results [...] #### C P, CBC, EDTOX, TSHX #### [facility] [address] [facility] [place] [address] Phlebotomist: Rafiq Fernández DO Glucose [Mass/Vol] 155 mg/dL High 70-99 [facility] Comment on above: Performed By: #### C P, CBC, EDTOX, TSHX #### [facility] [address] [facility] [place] [address] Phlebotomist: Rafiq Fernández DO Protein [Mass/Vol] 8.5 g/dL High 6.4-8.3 [facility] Comment on above: Performed By: #### C P, CBC, EDTOX, TSHX #### [facility] [place] [address] Phlebotomist: Rafiq Fernández DO Sodium [Moles/Vol] 137 mmol/L Normal 135-144 [facility] Comment on above: Performed By: #### C P, CBC, EDTOX, TSHX #### [facility] [place] [address] Phlebotomist: Rafiq Fernández DO Urea nitrogen [Mass/Vol] 6 mg/dL Normal 6-20 [facility] Comment on above: Performed By: #### C P, CBC, EDTOX, TSHX #### [facility] [address] [place] [address] Phlebotomist: Rafiq Fernández DO Drug Scr, Abuse, Uron 2023 Amphetamine(s),Ur Negative Normal NEG [facility] Comment on above: Result Comment: (Positive cutoff 1000 ng/mL) Performed By: #### Genna LIM JASKARAN #### [facility] [address] [place] [address] Phlebotomist: Rafiq Fernández DO Barbiturate(s),Ur Negative Normal NEG [facility] Comment on above: Result Comment: (Positive cutoff 200 ng/mL) Performed By: #### Genna LIM CAlin #### [facility] [address] [place] [address] Phlebotomist: Rafiq Fernández DO Benzodiazepine(s) Negative Normal NEG [facility] Comment on above: Result Comment: (Positive cutoff 200 ng/mL) Performed By: #### Genna LIM CAlin #### [facility] [address] [place] [address] Phlebotomist: Rafiq Fernández DO Cannabinoid(s),Ur Negative Normal NEG [facility] Comment on above: Result Comment: (Positive cutoff 50 ng/mL) Performed By: #### GIORGIO GARRIDO #### [facility] [place] [address] Phlebotomist: Rafiq Fernández DO Cocaine Metabolite Negative Normal [facility] Comment on above: Result Comment: (Positive cutoff 300 ng/mL) Performed By: #### GIORGIO GARRIDO #### [facility] [address] [place] [address] Phlebotomist: Rafiq Fernández DO Fentanyl, Urine Negative [facility] Comment on above: Result Comment: (Positive cutoff 5 ng/ml) Performed By: #### GIORGIO GARRIDO #### [facility] [address] [place] [address] Phlebotomist: Rafiq Fernández DO Interpretive Info Assay provides medic al screening only. The absence of expected drug(s) and/or Normal [facility] Comment on above: Result Comment: meta bolite(s) may indicate diluted or adulterated urine, limitations of testing or timing of collection. Testing for legal purposes should be confirmed by another method. To request confirmation of test result, please call the lab within 7 days of sample submission. Performed By: #### GIORGIO GARRIDO #### [facility] [address] [place] [address] Phlebotomist: Rafiq Fernández DO Methadone Ql (U) Negative Normal NEG [facility] Comment on above: Result Comment: (Positive cutoff 300 ng/mL) Performed By: #### GIORGIO GARRIDO #### [facility] [address] [place] [address] Phlebotomist: Rafiq Fernández DO Opiate(s), Ur Negative Normal [facility] Comment on above: Result Comment: (Positive cutoff 300 ng/mL) Performed By: #### Genna LIM [facility] #### [facility] [address] [place] [address] Phlebotomist: Rafiq Fernández DO Oxycodone, Urine Negative Normal NEG [facility] Comment on above: Result Comment: (Positive cutoff 100 ng/mL) Performed By: #### Genna LIM [facility] #### [facility] [address] [place] [address] Phlebotomist: Rafiq Fernández DO Phencyclidine, Ur Negative Normal NEG [facility] Comment on above: Result Comment: (Positive cutoff 25 ng/mL) Performed By: #### Genna LIM JASKARAN #### [facility] [address] [place] [address] Phlebotomist: Rafiq Fernández DO HCG, ,Urineon 09-29 Beta HCG ( test) Ql (U) Negative Normal NEG [facility] Comment on above: Result Comment: Spec imens with hCG levels near the threshold of the test (25 mIU/mL) may give a negative or indeterminate result. In such cases, another test should be performed with a new specimen in 48-72 hours. If early is suspected clinically in this setting, correlation with quantitative serum b-hCG level is suggested. Performed By: #### Genna LIM [facility] #### [facility] [address] [place] [address] Phlebotomist: Rafiq Fernández DO TSH w/reflex to FT4on 2023 Thyroid Stim. Horm. 1.64 uIU/mL Normal 0.30-5.00 [facility] Comment on above: Performed By: #### C P, CBC, EDTOX, TSHX #### [facility] [address] [place] [address]. [place] [address] Phlebotomist: Rafiq Fernández DO Tox Scr, Bld, EDon 4 Ethanol [Mass/Vol] 152 mg/dL High <10 [facility] Comment on above: Performed By: #### C P, CBC, EDTOX, TSHX #### [facility] [address] [facility] [place] [address] Phlebotomist: Rafiq Fernández DO Ethanol percent 0.152 % Normal [facility] Comment on above: Performed By: #### C P, CBC, EDTOX, TSHX #### [facility] [address] [facility] [place] [address] Phlebotomist: Rafiq Fernández DO Ambulatory Visit Summaryon 0 [...] Appointments Friday 8:20 AM EDT With: Where: [address] [address]- Friday 7:40 AM EDT With: YEISON SWANSON CNP Where: [address] [address]- You Need to Complete the Following CBC [...] for choosing us for your care. Normal [facility] Family Medicine Office/Clini c Noteon 09-29-2023 Family [...] June 2023 Last provider: Juanita Serrano . [facility] in [place] Any recent labs: Maybe October of last [...] Index (BMI) documented 3008F Comprehensive Metabolic Panel [facility] Internal Ambulatory Referral 2. Encounter to establish care (Z76.89: Persons encountering health services in other specified circumstances) Ordered: Body Mass Index (BMI) documented 3008F Body Mass Index (BMI) documented 3008F CBC w/ Auto Diff Comprehensive Metabolic Panel Current tobacco smoker 1034F Depression Screening Negative 3352F Discharge medications reconciled with current medications in outpatient record 1111F [facility] Internal Ambulatory Referral Lipid Panel TSH With [...] CBC w/ Auto Diff Comprehensive Metabolic Panel [facility] Internal Ambulatory Referral Lipid Panel TSH With T4fr Reflex 4. Smoker (F17.200: Nicotine dependence, unspecified, uncomplicated) Discu (more content not included)... Normal [facility] Comment on above: Result Comment: Elec tronically Signed By: YEISON SWANSON CNP\.linsey\Date and Time Signed: 09/29/23 10:47 EDT Ambulatory Visit Summaryon 0 09-02-2023 Ambulatory Visit Summary Ambulatory Visit Summary SUSY DIAZ :1995 Visit Date:09/02/2023 Ambulatory Visit Instructions Your Diagnosis Pain in joint of left knee BMI 45.0-49.9, adult Morbidly obese Your Care Team Attending Physician - Kala GRULLON, Flakito Can[facility], [...] numbers. This can be done either in [place] ([place] or metric measurements. Note that charts and online BMI calculators are available to help you find your BMI quickly and easily without having to do these calculations yourself. To calculate your BMI in [place] ([place] measurements: 1. Measure your weight in [...] BMI, inc (more content not included)... Normal [facility] Family Medicine Office/Clini c Noteon 09-02-2023 Family [...] and agree with above documented HPI by remote medical coder. Patient is a 28-year-old female who presents today with left knee pain. She states that sometimes it feels like her knee gives out while she is walking. 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 [...] with voice recognition artificial intelligence software, specifically [employer] and or [employer]. Occasional wrong-word or `[id number]-l-[id number]? substitutions may have occurred due to the inherent limitations of voice recognition and artificial intelligence software. Follow-up No qualifying data available Patient Education BMI for Adults Acute Knee Pain, Adult, Ibfr-vz-Hdxx Problem List/Past Medical History Ongoing Smoker Historical [...] Sister. Immuniz (more content not included)... Normal [facility] Comment on above: Result Comment: Elec tronically Signed By: Kala GRULLON, Flakito Cano\.linsey\Date and Time Signed: 09/02/23 09:36 EDT Longterm Documentson 04-02-2023 Longterm Documents [id number] [facility] XR KNEE LEFT (MIN 4 VIEWS)on 01-03-2023 [...] Sravanthi Bal DO 01/03/23 Final result Normal [facility] Measles (Rubeola) Imon 12-02 Measles (Rubeola) Im 4.13 Normal >1.09 [facility] Comment on above: Result Comment: Interpretation: IMMUNE Reference Range: <0.91 Not Immune 0.91-1.09 Equivocal >1.09 Immune Performed By: #### C BC, INSU, FERI, FEBC #### [facility] [address] [place] [address] Phlebotomist: Moisés Harp MD Mumps,Immun,Abon 12-02-2022 Mumps,Immun,Ab 3.39 Normal >1.09 [facility] Comment on above: Result Comment: Interpretation: IMMUNE Reference Range: <0.91 Not Immune 0.91-1.09 Equivocal >1.09 Immune Performed By: #### C BC, INSU, FERI, FEBC #### [facility] [address] [place] [address] Phlebotomist: Moisés Harp MD Laboratory - Microbiology an d Antimicrobial susceptibilityon 11-29-2022 Rubella virus IgG Qn (S) 31.32 [IU]/mL [facility] Comment on above: Note: REFERENCE RANG E:<5.0 NON-REACTIVE (non-immune)5.0 TO 9.9 EQUIVOCAL>=10.0 REACTIVE (immune)Responsible Observer: CEEV AUTOFILE ([id number]) No Panel Informationon 11-29 Measles (Rubeola) Im 4.13 (>1.09 ) [facility] Comment on above: Note: Interpretation :IMMUNEReference Range:<0.91 Not Immune0.91-1.09 Equivocal>1.09 ImmuneResponsible Observer: ERICKA PADRON ([id number]) Mumps,Immun,Ab 3.39 (>1.09 ) [facility] Comment on above: Note: Interpretation :IMMUNEReference Range:<0.91 Not Immune0.91-1.09 Equivocal>1.09 ImmuneResponsible Observer: ERICKA PADRON ([id number]) Reported Physicians See Note [facility] Comment on above: Note: Reported Physi cians:Ordering: Juanita LewisAttending: Juanita LewisReferring: Juanita Lewis Rubella Ab, IgGon 11-29-2022 Rubella Ab, IgG 31.32 IU/mL Normal [facility] Comment on above: Result Comment: REFERENCE RANGE: <5.0 NON-REACTIVE (non-immune) 5.0 TO 9.9 EQUIVOCAL >=10.0 REACTIVE (immune) Performed By: #### C BC, SHILOH, MATT, FEBC #### [facility] [address] [place] [address] Phlebotomist: Moisés Harp MD EDNURSon 11-11-2022 EDNURS Abnormal lab reviewe d with ANDREW elizalde. She reports no further action needed. Hailey Cook RN 11/12/22 1312 [facility] EDNURS Chart accessed for positive manuela result sent this day. Will review with ed provider for further orders. Hailey Cook RN 11/12/22 1227 [facility] EDPROVon 11-11-2022 EDPROV HPI Chief Complaint Patient [...] which she says she has not washed. [place] Coma Scale Score: 15 Patient History Past Medical History: Diagnosis Date Anxiety Asthma Bipolar 1 disorder ([facility]) PTSD (post-traumatic stress disorder) History reviewed. No [...] Triage Vitals Temp Heart Rate Resp BP 11/10/224 11/10/22234311/10/22234211/10/222343 36.7 ???C (98.1 ???F) 85 16 (!) [...] Attestion Verenice Llanes MD 11/21/22 0027 Normal [facility] URINALYSIS MICROSCOPIC WITH REFLEX CULTUREon 11-11-2022 CASTS IN URINE Normal [facility] Comment on above: Performed By: #### L [id number] #### [facility] ([facility]) [address] [place] [address] CRYSTALS IN URINE Normal [facility] Comment on above: Performed By: #### L [id number] #### [facility] ([facility]) [address] [place] [address] MUCUS (#/HPF) IN URINE SEDIMENT Occasional Normal None Seen, Occasional, Few [facility] Comment on above: Performed By: #### L [id number] #### [facility] ([facility]) [address] [place] [address] OTHER MICROSCOPIC ELEMENTS Normal [facility] Comment on above: Performed By: #### L [id number] #### [facility] ([facility]) [address] [place] [address] RBC (#/HPF) IN URINE SEDIMENT 51-100 Abnormal None Seen [facility] Comment on above: Performed By: #### L [id number] #### [facility] ([facility]) [address] [place] [address] SQUAMOUS EPITHELIAL CELLS (#/HPF) IN URINE SEDIMENT Many Abnormal None Seen, Occasional [facility] Comment on above: Performed By: #### L [id number] #### [facility] ([facility]) [address] [place] [address] WBC (LEUKOCYTE) (#/HPF) IN URINE SEDIMENT 6-10 Abnormal None Seen [facility] Comment on above: Performed By: #### L [id number] #### [facility] ([facility]) [address] [place] [address] URINALYSIS WITH REFLEX CULTU REon 11-11-2022 BILIRUBIN, TOTAL PRESENCE IN URINE Negative Normal Negative [facility] Comment on above: Performed By: #### L [id number] #### [facility] ([facility]) [address] [place] [address] Clarity (U) Slightly Cloudy Abnormal Clear [facility] Comment on above: Performed By: #### L [id number] #### [facility] ([facility]) [address] [place] [address] Color (U) Yellow Normal Yellow [facility] Comment on above: Performed By: #### L [id number] #### [facility] ([facility]) [address] [place] [address] Glucose (U) [Mass/Vol] Negative Normal Negative [facility] Comment on above: Performed By: #### L [id number] #### [facility] ([facility]) [address] [place] [address] HEMOGLOBIN PRESENCE IN URINE Large Abnormal Negative [facility] Comment on above: Performed By: #### L [id number] #### [facility] ([facility]) [address] [place] [address] Ketones Ql (U) Negative Normal Negative [facility] Comment on above: Performed By: #### L [id number] #### [facility] ([facility]) [address] [place] [address] LEUKOCYTE ESTERASE PRESENCE IN URINE BY TEST STRIP Moderate Abnormal Negative [facility] Comment on above: Performed By: #### L [id number] #### [facility] ([facility]) [address] [place] [address] NITRITE PRESENCE IN URINE Negative Normal Negative [facility] Comment on above: Performed By: #### L [id number] #### [facility] ([facility]) [address] [place] [address] pH (U) 6.0 [pH] Normal 5.0-8.0 [facility] Comment on above: Performed By: #### L [id number] #### [facility] ([facility]) [address] [place] [address] Protein (U) [Mass/Vol] Negative Normal Negative [facility] Comment on above: Performed By: #### L [id number] #### [facility] ([facility]) [address] [place] [address] Specific gravity (U) [Rel density] 1.006 Low 1.015-1.020 [facility] Comment on above: Performed By: #### L [id number] #### [facility] ([facility]) [address] [place] [address] URINE CULTURE, ROUTINEon Bacteria identified Cx Nom (U) >100,000 CFU/ML Uro-Genital Shelbie Normal [facility] Comment on above: Performed By: #### L [id number] #### [facility] (BEAKER) [address] [place] [address] VAGINITIS DNA PROBEon 2022 MANUELA SPECIES Positive Abnormal Negative [facility] Comment on above: Order Comment: Testi ng methodology is a DNA probe test intended for use in the detection and identification of Manuela species, Gardnerella Vaginalis and Trichomonas Vaginalis nucleic acid vaginal fluid specimens from patients with symptoms of Vaginitis/Vaginosis. Performed By: #### L [id number] #### [facility] ([facility]) [address] [place] [address] GARDNERELLA VAGINALIS BV Negative Normal Negative [facility] Comment on above: Order Comment: Testi ng methodology is a DNA probe test intended for use in the detection and identification of Manuela species, Gardnerella Vaginalis and Trichomonas Vaginalis nucleic acid vaginal fluid specimens from patients with symptoms of Vaginitis/Vaginosis. Performed By: #### L [id number] #### [facility] (AKER) [address] [place] [address] TRICHOMONAS VAGINALIS Negative Normal Negative [facility] Comment on above: Order Comment: Testi ng methodology is a DNA probe test intended for use in the detection and identification of Manuela species, Gardnerella Vaginalis and Trichomonas Vaginalis nucleic acid vaginal fluid specimens from patients with symptoms of Vaginitis/Vaginosis. Performed By: #### L [id number] #### [facility] ([facility]ER) [address] [place] [address] HCG, ,Urineon 10-31 Beta HCG ( test) Ql (U) Negative Normal NEG [facility] Comment on above: Result Comment: Spec imens with hCG levels near the threshold of the test (25 mIU/mL) may give a negative or indeterminate result. In such cases, another test should be performed with a new specimen in 48-72 hours. If early is suspected clinically in this setting, correlation with quantitative serum b-hCG level is suggested. Performed By: #### U HCG #### [facility] [address] [place] [address] Phlebotomist: Rafiq Fernández DO , Urineon 3 HCG ( test) Ql (U) Negative NEGATIVE [facility] Comment on above: Specimens with hCG l evels near the threshold of the test (25 mIU/mL) may give a negative or indeterminate result. In such cases, another test should be performed with a new specimen in 48-72 hours. If early is suspected clinically in this setting, correlation with quantitative serum b-hCG level is suggested. [facility] Factor V Mutationon 10-23-19 23 F 5 SPECIMEN Whole Blood Normal [facility] Comment on above: Performed By: #### A F5MUT #### [facility] [address] [place] [address] Phlebotomist: Sloan Dias MD FACTOR 5 MUTATION Negative Normal [facility] Comment on above: Result Comment: (NOT E) Indication for testing: Assess genetic risk for thrombosis. NEGATIVE: The factor V Leiden variant, c.1601G>A; p.[id number], was not detected. This does not exclude [...] function in the F5 gene variant c.1601G>A (p.[id number]). Legacy nomenclature: [id number] (1691G>A) CLINICAL SENSITIVITY: 20-50 percent of individuals with an isolated VTE have the FVL variant. METHODOLOGY: Polymerase chain reaction and fluorescence monitoring. ANALYTICAL SENSITIVITY AND SPECIFICITY: 99 percent. LIMITATIONS: Diagnostic errors can occur due to rare sequence variations. F5 gene mutations, other than p.Vmd853Hix, will not be detected. This test was developed and its performance characteristics determined by [facility]. It has not been cleared or approved by the [place] Food and Drug Administration. This test was performed in a CLIA certified laboratory and is intended for clinical purposes. Counseling and informed consent are recommended for genetic testing. Consent forms are available online. Performed By: [facility] [address] [place] [address] Inspector Finishing: Colton Rodriguez MD, PhD CLIA Number: [id number] Performed By: #### A F5MUT #### [facility] [address] [place] [address] Phlebotomist: Sloan Dias MD Group A Strep DNAon 10-20-19 Group A Strep DNA Specimen Description .THROAT SWAB Direct Exam Negative: Specimen negative for Streptococcus pyogenes by DNA amplification. Report Status FINAL 10/19/2022 [facility] Comment on above: Performed By: #### C BC, INSU, FERI, FEBC #### [facility] [place] [address] Phlebotomist: Moisés Harp MD No Panel Informationon 10-18 Group A Strep DNA See Note [facility] Comment on above: Note: Specimen Descr iption .THROAT SWABDirect Exam Negative: Specimen negative for Streptococcus pyogenes by DNA amplification.Report Status FINAL 10/19/2022Responsible Observer: JEFFERSON [employer] ([id number]) Reported Physicians See Note [facility] Comment on above: Note: Reported Physi cians:Ordering: Kb PelaezAttending: Kb PelaezReferring: Kb Pelaez CBCon 10-17-2022 Platelet, Fluoresc. 301 k/uL Normal 138-453 [facility] Comment on above: Performed By: #### C SHILOH MDCONOUGH FERI, FEBC #### [facility] [address] [place] [address] Phlebotomist: Moisés Harp MD PLT, Immature Fract. 10.3 % Normal 1.1-10.3 [facility] Comment on above: Performed By: #### SHILOH TOBIAS FERI, FEBC #### [facility] [address] [place] [address] Phlebotomist: Moisés Harp MD Erythrocyte distribution width (RBC) [Ratio] 19.3 % High 11.8-14.4 [facility] Comment on above: Performed By: #### C SHILOH MCDONOUGH FERI, FEBC #### [facility] [address] [place] [address] Phlebotomist: Moisés Harp MD Hematocrit (Bld) [Volume fraction] 42.9 % Normal 36.3-47.1 [facility] Comment on above: Performed By: #### SHILOH TOBIAS FERI, FEBC #### [facility] [address] [place] [address] Phlebotomist: Moisés Harp MD Hemoglobin (Bld) [Mass/Vol] 12.6 g/dL Normal 11.9-15.1 [facility] Comment on above: Performed By: #### C BCSHILOH FERI, FEBC #### [facility] [employer] [address] [place] [address] Phlebotomist: Moisés Harp MD MCH (RBC) [Entitic mass] 22.9 pg Low 25.2-33.5 [facility] Comment on above: Performed By: #### C BC, INSU, FERI, FEBC #### [facility] [employer] [address] [place] [address] Phlebotomist: Moisés Harp MD MCHC (RBC) [Mass/Vol] 29.4 g/dL Normal 28.4-34.8 [facility] Comment on above: Performed By: #### C BCSHILOH FERI, FEBC #### [facility] [employer] [address] [place] [address] Phlebotomist: Moisés Harp MD MCV (RBC) [Entitic vol] 78.0 fL Low 82.6-102.9 [facility] Comment on above: Performed By: #### C BCSHILOH FERI, FEBC #### [facility] [employer] [address] [place] [address] Phlebotomist: Moisés Harp MD NRBC Automated 0.0 per 100 WBC Normal 0.0 [facility] Comment on above: Performed By: #### C BCSHILOH, FERI, FEBC #### [facility] [employer] [address] [place] [address] Phlebotomist: Moisés Harp MD Platelet Count See Reflexed IPF Result Normal 138-453 [facility] Comment on above: Performed By: #### C BCSHILOH FERI, FEBC #### [facility] [employer] [address] [place] [address] Phlebotomist: Moisés Harp MD RBC (Bld) [#/Vol] 5.50 10*6/uL High 3.95-5.11 [facility] Comment on above: Performed By: #### C SHILOH MCDONOUGH FERI, FEBC #### [facility] [address] [place], [place] [phone] Phlebotomist: Moisés Harp MD WBC (Bld) [#/Vol] 9.9 10*3/uL Normal 3.5-11.3 [facility] Comment on above: Performed By: #### C SHILOH MCDONOUGH FERI, FEBC #### [facility] [address] [place], [place] [phone] Phlebotomist: Moisés Harp MD Erythrocyte distribution width (RBC) [Ratio] 19.3 % High 11.8 - 14.4 % [facility] Hematocrit (Bld) [Volume fraction] 42.9 % 36.3 - 47.1 % [facility] Hemoglobin (Bld) [Mass/Vol] 12.6 g/dL 11.9 - 15.1 g/dL [facility] Interpretation and review of laboratory results Abnormal [facility] MCH (RBC) [Entitic mass] 22.9 pg Low 25.2 - 33.5 pg [facility] MCHC (RBC) [Mass/Vol] 29.4 g/dL 28.4 - 34.8 g/dL [facility] MCV (RBC) [Entitic vol] 78.0 fL Low 82.6 - 102.9 fL [facility] Nucleated RBC/100 WBC (Bld) [Ratio] 0.0 % 0.0 per 100 WBC [facility] Go [facility] Platelet, Fluorescence 301 [facility] Platelets (Bld) [#/Vol] See Reflexed IPF Result [facility] [employer] Platelets reticulated/100 platelets Auto (Bld) 10.3 % 1.1 - 10.3 % [facility] RBC (Bld) [#/Vol] 5.50 10*6/uL High 3.95 - 5.1 1 m/uL [facility] WBC other (Bld) [#/Vol] 9.9 [facility] Ferritinon 10-17-2022 Ferritin [Mass/Vol] 37 ng/mL Normal 13-150 [facility] Comment on above: Performed By: #### C BC, INSU, FERI, FEBC #### [facility] [address] [place] [address] [phone] Phlebotomist: Moisés Harp MD Ferritin [Mass/Vol] 37 ng/mL 13 - 150 ng/mL [facility] Insulinon 10-17-2022 Insulin 25.4 mU/L Normal [facility] Comment on above: Performed By: #### C BC, INSU, FERI, FEBC #### [facility] [address] [place] [address] [phone] Phlebotomist: Moisés Harp MD Reference Range Normal [facility] Comment on above: Result Comment: Fast in.6-24.9 30 min: 20-112 60 min: 29-88 90 min: -84 120 min: 22-79 Performed By: #### C BC, INSU, FERI, FEBC #### [facility] [address] [place] [address] [phone] Phlebotomist: Moisés Harp MD Insulin, totalon 10-17-2022 Insulin 25.4 mU/L [facility] Insulin Reference Range: [facility] Comment on above: Fastin.6-24.9 30 min: 20-112 60 min: 29-88 90 min: -84 120 min: 22-79 [facility] Iron Binding Cap.on 10-18-19 23 % Fe Saturation 8 % Low 20-55 [facility] Comment on above: Performed By: #### C BC, INSU, FERI, FEBC #### [facility] [address] [place] [address] [phone] Phlebotomist: Moisés Harp MD Iron [Mass/Vol] 30 ug/dL Low 37-145 [facility] Comment on above: Performed By: #### C BC, INSU, FERI, FEBC #### [facility] [address] [place], [place] [phone] Phlebotomist: Moisés Harp MD Total Fe Binding Cap 371 ug/dL Normal 250-450 [facility] Comment on above: Performed By: #### C BC, INSU, FERI, FEBC #### [facility] [address] [place], [place] [phone] Phlebotomist: Moisés Harp MD Unbound Fe Bind Cap 341 ug/dL Normal 112-347 [facility] Comment on above: Performed By: #### C BC, INSU, FERI, FEBC #### [facility] [address] [place] [address] Phlebotomist: Moisés Harp MD Iron and TIBCon 10-17-2022 Interpretation and review of laboratory results Abnormal [facility] Iron [Mass/Vol] 30 ug/dL Low 37 - 145 ug/dL [facility] Iron binding capacity [Mass/Vol] 371 ug/dL 250 - 450 ug/dL [facility] Iron saturation [Mass fraction] 8 % Low 20 - 55 % [facility] UIBC 341 ug/dL 112 - 347 ug/dL [facility] Laboratory - Chemistry and C hemistry - challengeon 10-17-2022 Ferritin [Mass/Vol] 37 ng/mL (13-150 ) [facility] Comment on above: Note: Responsible Ob dining server: CEE[employer] ([id number]) Iron [Mass/Vol] 30 ug/dL Low (37-145 ) [facility] Comment on above: Note: Responsible Ob dining server: C[employer] ([id number]) Laboratory - Hematology and Cell countson 10-17-2022 Erythrocyte distribution width (RBC) [Ratio] 19.3 % High (11.8-14.4 ) [facility] Comment on above: Note: Responsible Ob dining server: RIKI WARD ([id number]) Hematocrit (Bld) [Volume fraction] 42.9 % (36.3-47.1 ) [facility] Comment on above: Note: Responsible Ob dining server: RIKI WARD ([id number]) Hemoglobin (Bld) [Mass/Vol] 12.6 g/dL (11.9-15.1 ) [facility] Comment on above: Note: Responsible Ob dining server: RIKI WARD ([id number]) MCH (RBC) [Entitic mass] 22.9 pg Low (25.2-33.5 ) [facility] Comment on above: Note: Responsible Ob dining server: RIKI WARD ([id number]) MCHC (RBC) [Mass/Vol] 29.4 g/dL (28.4-34.8 ) [facility] Comment on above: Note: Responsible Ob dining server: RIKI WARD ([id number]) MCV (RBC) [Entitic vol] 78.0 fL Low (82.6-102.9 ) [facility] Comment on above: Note: Responsible Ob dining server: RIKI WARD ([id number]) RBC (Bld) [#/Vol] 5.50 10*6/uL High (3.95-5.11 ) [facility] Comment on above: Note: Responsible Ob dining server: RIKI WARD ([id number]) WBC (Bld) [#/Vol] 9.9 10*3/uL (3.5-11.3 ) [facility] Comment on above: Note: Responsible Ob dining server: RIKI WARD ([id number]) No Panel Informationon 10-17 [facility] F 5 SPECIMEN Whole Blood [facility] Comment on above: Note: Responsible Ob dining server: LAB [facility] ([id number]) FACTOR 5 MUTATION Negative [facility] Comment on above: Note: (NOTE)Indicati on for testing: Assess genetic risk for thrombosis.NEGATIVE: The factor V Leiden variant, c.1601G>A; p.[id number], wasnot detected. This does not exclude a [...] of function in the F5 gene variantc.1601G>A (p.Tum503Oqt). Legacy nomenclature: R506Q (1691G>A)CLINICAL SENSITIVITY: 20-50 percent of individuals with anisolated VTE have the FVL variant.METHODOLOGY: Polymerase chain reaction and fluorescence monitoring.ANALYTICAL SENSITIVITY AND SPECIFICITY: 99 percent.LIMITATIONS: Diagnostic errors can occur due to rare sequencevariations. F5 gene mutations, other than p.[id number], will not bedetected.This test was developed and its performance characteristicsdetermined by [facility]. It has not been cleared orapproved by the [place] Food and Drug Administration. This test wasperformed in a CLIA certified laboratory and is intended forclinical purposes.Counseling and informed consent are recommended for genetictesting. Consent forms are available online.Performed By: [facility] [place] [id number] Director: Colton Rodriguez MD, PhDCLIA Number: [id number] Observer: LAB [facility]BORA ([id number]) Reported Physicians See Note [facility] Comment on above: Note: Reported Physi cians:Ordering: Kb PelaezAttending: Kb PelaezReferring: Kb Pelaez % Fe Saturation 8 % Low (20-55 ) [facility] Comment on above: Note: Responsible Ob dining server: [employer] ([id number]) Insulin 25.4 mU/L [facility] Comment on above: Note: Responsible Ob dining server: [employer]CE[employer] (3002) NRBC Automated 0.0 per_100_WBC (0.0 ) [facility] Comment on above: Note: Responsible Ob dining server: RIKI SYLVIA ([id number]) Platelet Count See Reflexed IPF Res ult k/uL (138-453 ) [facility] Comment on above: Note: Responsible Ob dining server: RIKI CARLTONH ([id number]) Platelet, Fluoresc. 301 k/uL (138-453 ) [facility] Comment on above: Note: Responsible Ob dining server: RIKI SYLVIA ([id number]) PLT, Immature Fract. 10.3 % (1.1-10.3 ) [facility] Comment on above: Note: Responsible Ob dining server: RIKI SENAYAH ([id number]) Reference Range See Note [facility] Comment on above: Note: Fastin.6-2 4.930 min: 20-81300 min: 29-8890 min: 26-75130 min: 22-79Responsible Observer: [employer] ([id number]) Reported Physicians See Note [facility] Comment on above: Note: Reported Physi cians:Ordering: Juanita LewisAttending: Juanita LewisReferring: Juanita Lewis Total Fe Binding Cap 371 ug/dL (250-450 ) [facility] Comment on above: Note: Responsible Ob dining server: CEEV [employer]FILE ([id number]) Unbound Fe Bind Cap 341 ug/dL (112-347 ) [facility] Comment on above: Note: Responsible Ob dining server: CEE[employer] ([id number]) Laboratory - Chemistry and C hemistry - challengeon 09-06-2022 Glucose [Mass/Vol] 108 mg/dL High (65-105 ) [facility] Comment on above: Note: Responsible Ob dining server: Shoutly [employer] (2019) No Panel Informationon 09-06 Reported Physicians See Note [facility] Comment on above: Note: Reported Physi cians:Ordering: Juanita LewisAttending: Juanita Lewis Cytologyon 08-15-2022 Cytology (NOTE) Path Number: [id number] DIAGNOSIS Imaged ThinPrep Pap - Cervical (1 monolayer slide): Specimen Adequacy: Satisfactory for evaluation. - Endocervical/transformati on zone component present. Descriptive Diagnosis: Negative for intraepithelial lesion or malignancy. 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 Cytotech Screener: [id number] Rescreened By: EY Electronically Signed Out Estephanie BALDERAS(ASCP) /08/28/2022 Source of Specimen: A: Imaged ThinPrep Pap - Cervical (1 monolayer slide) HPV Reflex?.................. ....HPV if Abnormal Clinical History Z01.419 Routine coiler exam without abnormal findings Prior abnormal pap: 04/13/21 [facility] High risk HPV DNA testing is requested if the diagnosis is abnormal Processing Lab: [address] [id number] Interpretation performed at [address] [phone] The Pap smear is a screening test primarily for squamous epithelial lesions, which is subject to both false negative and false positive results. Your patient should be reminded to consult you immediately if she experiences any suspicious signs or symptoms, regardless of her Pap smear result. GYNECOLOGIC CYTOLOGY REPORT Patient Name: SUSY DIAZCristino [facility] Rec: [id number] [facility] ANATOMIC PATHOLOGY [address] [place] [address]. [place], [place] [id number] Normal [facility] Comment on above: Performed By: #### C BC, INSU, FERI, FEBC #### [facility] [address] [place] [address] Phlebotomist: Moisés Harp MD Orders Onlyon 06-23-2023 Orders Only [id number] Linsey Diaz 1995 F Date Provider Department Center 08/09/2022 ALYSON MOCK INF DCC No family history on file Normal [facility] CBC with Diffon 08-07-2022 Abs. Basophil 0.05 k/uL Normal 0.00-0.20 [facility] Comment on above: Performed By: #### L H, INSU, CDP, FSH, GLUF #### [address] [address] Phlebotomist: Moisés Harp MD Abs.Imm.Granulocyte 0.03 k/uL Normal 0.00-0.30 [facility] Comment on above: Performed By: #### L H, INSU, CDP, FSH, GLUF #### [address] [address] Phlebotomist: Moisés Harp MD Abs.Neutrophil (Seg) 5.72 k/uL Normal 1.50-8.10 [facility] Comment on above: Performed By: #### L H, INSU, CDP, FSH, GLUF #### [address] [address] Phlebotomist: Moisés Harp MD Basophils/100 WBC (Bld) 1 % Normal 0-2 [facility] Comment on above: Performed By: #### L H, INSU, CDP, FSH, GLUF #### [address] [address] Phlebotomist: Moisés Harp MD Eosinophils (Bld) [#/Vol] 0.11 10*3/uL Normal 0.00-0.44 [facility] Comment on above: Performed By: #### L H, INSU, CDP, FSH, GLUF #### [facility] [employer] [address] [place] [address] Phlebotomist: Moisés Harp MD Eosinophils/100 WBC (Bld) 1 % Normal 1-4 [facility] Comment on above: Performed By: #### L H, INSU, CDP, FSH, GLUF #### [address] [address] Phlebotomist: Moisés Harp MD Erythrocyte distribution width (RBC) [Ratio] 16.9 % High 11.8-14.4 [facility] Comment on above: Performed By: #### L H, INSU, CDP, FSH, GLUF #### [address] [address] Phlebotomist: Moisés Harp MD Hematocrit (Bld) [Volume fraction] 35.0 % Low 36.3-47.1 [facility] Comment on above: Performed By: #### L H, INSU, CDP, FSH, GLUF #### [place] [address] Phlebotomist: Moisés Harp MD Hemoglobin (Bld) [Mass/Vol] 10.4 g/dL Low 11.9-15.1 [facility] Comment on above: Performed By: #### L H, INSU, CDP, FSH, GLUF #### [address] [address] Phlebotomist: Moisés Harp MD Immature granulocytes/100 WBC (Bld) 0 % Normal 0 [facility] Comment on above: Performed By: #### L H, INSU, CDP, FSH, GLUF #### [facility] [employer] [address] [place] [address] Phlebotomist: Moisés Harp MD Lymphocytes (Bld) [#/Vol] 2.44 10*3/uL Normal 1.10-3.70 [facility] Comment on above: Performed By: #### L H, INSU, CDP, FSH, GLUF #### [address] [address] Phlebotomist: Moisés Harp MD Lymphocytes/100 WBC (Bld) 27 % Normal 24-43 [facility] Comment on above: Performed By: #### L H, INSU, CDP, FSH, GLUF #### [address] [address] Phlebotomist: Moisés Harp MD MCH (RBC) [Entitic mass] 22.4 pg Low 25.2-33.5 [facility] Comment on above: Performed By: #### L H, INSU, CDP, FSH, GLUF #### [address] [address] Phlebotomist: Moisés Harp MD MCHC (RBC) [Mass/Vol] 29.7 g/dL Normal 28.4-34.8 [facility] Comment on above: Performed By: #### L H, INSU, CDP, FSH, GLUF #### [place] [address] Phlebotomist: Moisés Harp MD MCV (RBC) [Entitic vol] 75.3 fL Low 82.6-102.9 [facility] Comment on above: Performed By: #### L H, INSU, CDP, FSH, GLUF #### [address] [address] Phlebotomist: Moisés Harp MD Monocytes (Bld) [#/Vol] 0.60 10*3/uL Normal 0.10-1.20 [facility] Comment on above: Performed By: #### L H, INSU, CDP, FSH, GLUF #### [address] [address] Phlebotomist: Moisés Harp MD Monocytes/100 WBC (Bld) 7 % Normal 3-12 [facility] Comment on above: Performed By: #### L H, INSU, CDP, FSH, GLUF #### [place] [address] Phlebotomist: Moisés Harp MD Neutrophil (Seg) 64 % Normal 36-65 [facility] Comment on above: Performed By: #### L H, INSU, CDP, FSH, GLUF #### [address] [address] Phlebotomist: Moisés Harp MD NRBC Automated 0.0 per 100 WBC Normal 0.0 [facility] Comment on above: Performed By: #### L H, INSU, CDP, FSH, GLUF #### [address] [address] Phlebotomist: Moisés Harp MD Platelet mean volume (Bld) [Entitic vol] 11.2 fL Normal 8.1-13.5 [facility] Comment on above: Performed By: #### L H, INSU, CDP, FSH, GLUF #### [address] [address] Phlebotomist: Moisés Harp MD Platelets (Bld) [#/Vol] 323 10*3/uL Normal 138-453 [facility] Comment on above: Performed By: #### L H, INSU, CDP, FSH, GLUF #### [address] [address] Phlebotomist: Moisés Harp MD RBC (Bld) [#/Vol] 4.65 10*6/uL Normal 3.95-5.11 [facility] Comment on above: Performed By: #### L H, INSU, CDP, FSH, GLUF #### [address] [address] Phlebotomist: Moisés Harp MD RBC morphology finding Nom (Bld) ANISOCYTOSIS PRESENT Normal [facility] Comment on above: Result Comment: MICR OCYTOSIS PRESENT Performed By: #### L H, INSU, CDP, FSH, GLUF #### [address] [phone] Phlebotomist: Moisés Harp MD WBC (Bld) [#/Vol] 9.0 10*3/uL Normal 3.5-11.3 [facility] Comment on above: Performed By: #### L H, INSU, CDP, FSH, GLUF #### [address] [phone] Phlebotomist: Moisés Harp MD Follicle Stim. Hormon 2022 Follicle Stim. Horm 6.9 mIU/mL Normal 1.7-21.5 [facility] Comment on above: Result Comment: Refe rence Range: Male: 1.5-12.4 Ovulating Female: Follicular Phase 3.5-12.5 Ovulation Phase 4.7-21.5 Luteal Phase 1.7-7.7 Postmenopausal Female: 25.8-134.8 Performed By: #### L H, INSU, CDP, FSH, GLUF #### [address] [address] Phlebotomist: Moisés Harp MD Glucose, Fastingon 3 Glucose [Mass/Vol] 102 mg/dL High 70-99 [facility] Comment on above: Performed By: #### L H, INSU, CDP, FSH, GLUF #### [address] [address] Phlebotomist: Moisés Harp MD Insulinon 5 Insulin 58.8 mU/L Normal [facility] Comment on above: Performed By: #### L H, INSU, CDP, FSH, GLUF #### [address] [address] Phlebotomist: Moisés Harp MD Reference Range Normal [facility] Comment on above: Result Comment: Fast in.6-24.9 30 min: 20-112 60 min: 29-88 90 min: 26-84 120 min: 22-79 Performed By: #### L H, INSU, CDP, FSH, GLUF #### [facility] [employer] [address] [place] [address] [phone] Phlebotomist: Moisés Harp MD Collection Info. hide Normal [facility] Comment on above: Performed By: #### L H, INSU, CDP, FSH, GLUF #### [facility] [employer] [address] [place] [address] [phone] Phlebotomist: Moisés Harp MD Luteinizing Hormoneon 2022 Luteinizing Hormone 16.0 mIU/mL Normal 1.0-95.6 [facility] Comment on above: Result Comment: Refe rence Range: Male: 1.7-8.6 Ovulating Female: Follicular Phase 2.4-12.6 Ovulation Phase 14.0-95.6 Luteal Phase 1.0-11.4 Postmenopausal Female: 7.7-58.5 Performed By: #### L H, INSU, CDP, FSH, GLUF #### [address] [id number] Phlebotomist: Moisés Harp MD HCG, Quanton 06-28-2022 HCG, Quant <1 Normal <5 [facility] Comment on above: Result Comment: Non-preg premeno <=5 Postmeno <=8 Male <=3 If HCG results do not concur with clinical observations, additional testing to confirm results is recommended. Performed By: #### C BC, INSU, FERI, FEBC #### [facility] [employer] [address] [place] [address] [id number] Phlebotomist: Moisés Harp MD HCG, Quantitative, on 06-28-2022 hCG Quant NINF [facility] Comment on above: Non-preg premeno <=5 Postmeno <=8 Male <=3 If HCG results do not concur with clinical observations, additional testing to confirm results is recommended. [facility] EDPROVon 01-22-2022 EDPROV HPI Chief Complaint Patient [...] is having passage of gas and stool. [place] Coma Scale Score: 15 Patient History Past [...] pain MDM Attestion Verenice Llanes MD 01/30/2227 Normal [facility] EDNURSon 01-21-2022 EDNURS Pt arrives [...] is alert and oriented. PWD. NND Normal [facility] Urine Cultureon 10-19-2021 Bacteria identified Cx Nom (U) Reason for Exam Dysuria Urine >100,000 colonies/ml mixed bacterial skin contaminants 2 Days PERFORMED BY: [facility] [address] [place] [address] PATHOLOGIST TECHNICAL COMMUNICATOR THEA MELCHOR M.D. Normal [facility] Comment on above: Performed By: #### V AGINITIS+ #### [facility] , #### CUU #### [facility] [address] [place] [address] Vaginitis Plus (VG+)on 10-19 Atopobium Vaginae High - 2 Critically abnormal . [facility] Comment on above: Order Comment: Reaso n for Exam Urinary frequency Performed By: #### V AGINITIS+ #### [facility] , #### CUU #### [facility] [address] [place] [address] BVAB2 High - 2 Critically abnormal . [facility] Comment on above: Order Comment: Reaso n for Exam Urinary frequency Performed By: #### V AGINITIS+ #### [facility] , #### CUU #### [facility] [address] [place] [address] Manuela Albicans, ASHELY Negative Normal Negative [facility] Comment on above: Order Comment: Reaso n for Exam Urinary frequency Result Comment: This test was developed and its performance characteristics determined by [facility]. It has not been cleared or approved by the Food and Drug Administration. Performed By: #### V AGINITIS+ #### [facility] , #### CUU #### [facility] [address] [place] [address] Manuela Glabrata, ASHELY Negative Normal Negative [facility] Comment on above: Order Comment: Reaso n for Exam Urinary frequency Result Comment: This test was developed and its performance characteristics determined by [facility]. It has not been cleared or approved by the Food and Drug Administration. PERFORMED BY: [place] [address] PATHOLOGIST TECHNICAL COMMUNICATOR THEA MELCHOR M.D. Performed By: #### V AGINITIS+ #### [facility] , #### CUU #### [facility] [address] Chlamydia Trachomotis, ASHELY Negative Normal Negative [facility] Comment on above: Order Comment: Reaso n for Exam Urinary frequency Performed By: #### V AGINITIS+ #### [facility] , #### CUU #### [facility] [address] Megasphaera High - 2 Critically abnormal . [facility] Comment on above: Order Comment: Reaso n [...] developed and its performance characteristics determined by [employer]. It has not been cleared or approved by the Food and Drug Administration. Performed By: #### V AGINITIS+ #### [facility] , #### CUU #### [address] Neisseria Gonorrhoeae, ASHELY Negative Normal Negative [facility] Comment on above: Order Comment: Reaso n for Exam Urinary frequency Result Comment: Perf ormed at: =G - [facility] [address] [id number] Phlebotomist: Koki Lopez MD, Phone: [phone] Performed By: #### V AGINITIS+ #### [facility] , #### CUU #### [facility] [address] [place] [address] Tric Vag ASHELY Negative Normal Negative [facility] Comment on above: Order Comment: Reaso n for Exam Urinary frequency Performed By: #### V AGINITIS+ #### [facility] , #### CUU #### [facility] [address] [place] [address] CBC W/DIFFon 09-02-2021 ABS IMM GRANS 0.0 10*3/uL Normal 0.0-0.2 [facility] Comment on above: Performed By: #### 8 4140 #### [facility] [address] [facility] [place] [address], [facility] ABS NEUTROPHILS 6.1 10*3/uL Normal 1.6-7.6 [facility] Comment on above: Performed By: #### 8 4140 #### [facility] [address] [place] [address], [facility] Basophils (Bld) [#/Vol] 0.1 10*3/uL Normal 0.0-0.2 [facility] Comment on above: Performed By: #### 8 4140 #### [facility] [address] [place] [address], [facility] Basophils/100 WBC (Bld) 0.5 % Normal 0.0-1.0 [facility] Comment on above: Performed By: #### 8 4140 #### [facility] [address] [place] [address], [facility] Eosinophils (Bld) [#/Vol] 0.3 10*3/uL Normal 0.0-0.5 [facility] Comment on above: Performed By: #### 8 4140 #### [facility] [address] [place] [address], [facility] Eosinophils/100 WBC (Bld) 2.5 % Normal 0.0-6.0 [facility] Comment on above: Performed By: #### 8 4140 #### [facility] [address] [place] [address], [facility] Erythrocyte distribution width (RBC) [Ratio] 17.2 % High 11.5-15.0 [facility] Comment on above: Performed By: #### 8 4140 #### [facility] [address] [place] [address], [facility] Hematocrit (Bld) [Volume fraction] 38.1 % Normal 36.0-45.0 [facility] Comment on above: Performed By: #### 8 4140 #### [facility] [address] [place] [address], [facility] Hemoglobin (Bld) [Mass/Vol] 12.0 g/dL Normal 12.0-15.0 [facility] Comment on above: Performed By: #### 8 4140 #### [facility] [address] [place] [address], [facility] IMMATURE GRANS 0.3 % Normal 0.0-1.0 [facility] Comment on above: Performed By: #### 8 4140 #### [facility] [address] [facility] [place] [address], [facility] Lymphocytes (Bld) [#/Vol] 2.9 10*3/uL Normal 1.2-4.0 [facility] Comment on above: Performed By: #### 8 4140 #### [facility] [address] [facility] [place] [address], [facility] Lymphocytes/100 WBC (Bld) 29.4 % Normal 20.0-45.0 [facility] Comment on above: Performed By: #### 8 4140 #### [facility] [address] [facility] [place] [address], [facility] MCH (RBC) [Entitic mass] 23.9 pg Low 27.0-33.0 [facility] Comment on above: Performed By: #### 8 4140 #### [facility] [address] [place] [address], [facility] MCHC (RBC) [Mass/Vol] 31.5 g/dL Low 32.0-35.0 [facility] Comment on above: Performed By: #### 8 4140 #### [facility] [address] [place] [address], [place] MCV (RBC) [Entitic vol] 75.9 fL Low 82.0-98.0 [facility] Comment on above: Performed By: #### 8 4140 #### [facility] [address] [place] [address], [facility] Monocytes (Bld) [#/Vol] 0.5 10*3/uL Normal 0.1-1.0 [facility] Comment on above: Performed By: #### 8 4140 #### [facility] [address] [facility] [place] [address], [facility] MONOS 5.1 % Normal 5.0-12.0 [facility] Comment on above: Performed By: #### 8 4140 #### [facility] [address] [place] [address], [facility] Neutrophils/100 WBC (Bld) 62.2 % Normal 40.0-72.0 [facility] Comment on above: Performed By: #### 8 4140 #### [facility] [address] [facility] [place] [address], [facility] Nucleated RBC/100 WBC (Bld) [Ratio] 0 % Normal 0-0 [facility] Comment on above: Performed By: #### 8 4140 #### [facility] [address] [facility] [place] [address], [facility] PLAT CNT 243 10*3/uL Normal 150-400 [facility] Comment on above: Performed By: #### 8 4140 #### [facility] [address] [facility] [place] [address], [facility] RBC (Bld) [#/Vol] 5.02 10*6/uL High 3.80-5.00 [facility] Comment on above: Performed By: #### 8 4140 #### [facility] [address] [place] [id number], [facility] WBC (Bld) [#/Vol] 9.82 10*3/uL Normal 4.00-10.60 [facility] Comment on above: Performed By: #### 8 4140 #### [facility] [address] [facility] [place] [address], [facility] COMP METABOLIC PANELon 09-02 Albumin [Mass/Vol] 3.9 g/dL Normal 3.5-5.7 [facility] Comment on above: Performed By: #### 0 0121 #### [facility] [address] [facility]. [address] ALKALINE PHOSPH 74 IU/L Normal 34-104 [facility] Comment on above: Performed By: #### 0 0121 #### [facility] [address] [facility]. [address] ALT [Catalytic activity/Vol] 15 U/L Normal 7-52 [facility] Comment on above: Performed By: #### 0 0121 #### [facility] [address] [facility]. [address] AST [Catalytic activity/Vol] 11 U/L Low 13-39 [facility] Comment on above: Performed By: #### 0 0121 #### [facility] [address] [facility]. [address] Bilirubin [Mass/Vol] 0.3 mg/dL Normal 0.3-1.0 [facility] Comment on above: Performed By: #### 0 0121 #### [facility] [address] [facility] [place] [address], [facility] Calcium [Mass/Vol] 9.0 mg/dL Normal 8.6-10.3 [facility] Comment on above: Performed By: #### 0 0121 #### [facility] [address] [facility] [place] [address], [facility] Chloride [Moles/Vol] 108 mmol/L High 98-107 [facility] Comment on above: Performed By: #### 0 0121 #### [facility] [address] [place] [address], [place] CO2 [Moles/Vol] 26 mmol/L Normal 21-31 [facility] Comment on above: Performed By: #### 0 0121 #### [facility] [address] [place] [address], [place] Creatinine [Mass/Vol] 0.62 mg/dL Normal 0.60-1.20 [facility] Comment on above: Performed By: #### 0 0121 #### [facility] [address] [place] [address], [place] GFR/1.73 sq M.predicted among blacks MDRD (S/P/Bld) [Vol rate/Area] mL/min/{1.73_m2} Normal >60 [facility] Comment on above: Performed By: #### 0 0121 #### [facility] [address] [place] [address], [place] GFR/1.73 sq M.predicted among non-blacks MDRD (S/P/Bld) [Vol rate/Area] mL/min/{1.73_m2} Normal >60 [facility] Comment on above: Performed By: #### 0 0121 #### [facility] [address] [place] [address], [place] Glucose [Mass/Vol] 86 mg/dL Normal 70-100 [facility] Comment on above: Performed By: #### 0 0121 #### [facility] [address] [place] [address], [place] Potassium [Moles/Vol] 3.7 mmol/L Normal 3.5-5.1 [facility] Comment on above: Performed By: #### 0 0121 #### [facility] [address] [place] [address], [place] Protein [Mass/Vol] 6.8 g/dL Normal 6.0-8.3 [facility] Comment on above: Performed By: #### 0 0121 #### [facility] [address] [facility] [place] [address], [facility] Sodium [Moles/Vol] 139 mmol/L Normal 136-145 [facility] Comment on above: Performed By: #### 0 0121 #### [facility] [address] [place] [address], [facility] Urea nitrogen [Mass/Vol] 6 mg/dL Low 7-25 [facility] Comment on above: Performed By: #### 0 0121 #### [facility] [address] [place] [address], [facility] CT BRAIN WO CONTRASTon 09-02 CT BRAIN WO CONTRAST [facility] Department of Radiology [address] [place] [address] [id number] Patient Name: SUSY DIAZ : 1995 Sex: F Age: Race: White Pt. Location: [facility] Patient Status: E Ordered Date: 09/02/2021 12:50:00 [...] achievable Electronically signed: Tono Thomas. Transcribed by: [email or web address], User Resident: Electronically Signed by: TONO THOMAS @ 09/02/2021 01:34 PM Normal [facility] Comment on above: Order Comment: Bleed CT CERVICAL SPINE WITHOUT CO NTRASTon 09-02-2021 CT CERVICAL SPINE WITHOUT CONTRAST [facility] Department of Radiology [address] [place] [id number] Patient Name: SUSY DIAZ : 1995 Sex: F Age: Race: White Pt. Location: [facility] Patient Status: E Ordered Date: 09/02/2021 12:50:00 [...] appreciated. Electronically signed: Tono Thomas. Transcribed by: [email or web address], User Resident: Electronically Signed by: TONO THOMAS @ 09/02/2021 01:37 PM Normal [facility] Comment on above: Order Comment: Fract ures LIPASE BLOODon 09-02-2021 LIPASE 20 Units/L Normal 11-82 [facility] Comment on above: Performed By: #### 3 6901 #### [facility] [address] [place] [address], [facility] POC URINE PREGNANCYon 2021 Beta HCG ( test) Ql (U) Negative Normal NEGATIVE [facility] Comment on above: Result Comment: Perf ormed in Emergency Department. Performed By: #### 8 4140 #### [facility] [address] [place] [address], [facility] URINALYSIS REFLEXon 09-03-19 Appearance (U) SL CLOUDY Abnormal CLEAR [facility] Comment on above: Order Comment: Crite marisol for reflexing a culture was not met. Please call the lab at [phone] within 24 hours of collection time if culture is needed Performed By: #### 3 0965 #### [facility] [address] [facility] [place] [address], [facility] Bilirubin Ql (U) Negative Normal NEGATIVE [facility] Comment on above: Order Comment: Crite marisol for reflexing a culture was not met. Please call the lab at [phone] within 24 hours of collection time if culture is needed Performed By: #### 3 0965 #### [facility] [address] [place] [address], [facility] Color (U) YELLOW Normal YELLOW [facility] Comment on above: Order Comment: Crite marisol for reflexing a culture was not met. Please call the lab at [phone] within 24 hours of collection time if culture is needed Performed By: #### 3 0965 #### [facility] [address] [place] [address], [facility] Glucose Ql (U) Negative Normal NEGATIVE [facility] Comment on above: Order Comment: Crite marisol for reflexing a culture was not met. Please call the lab at [phone] within 24 hours of collection time if culture is needed Performed By: #### 3 0965 #### [facility] [address] [place] [address], [place] Hemoglobin Ql (U) Negative Normal NEGATIVE [facility] Comment on above: Order Comment: Crite marisol for reflexing a culture was not met. Please call the lab at [phone] within 24 hours of collection time if culture is needed Performed By: #### 3 0965 #### [facility] [address] [place] [address], [facility] KETONE Negative Normal NEGATIVE [facility] Comment on above: Order Comment: Crite marisol for reflexing a culture was not met. Please call the lab at [phone] within 24 hours of collection time if culture is needed Performed By: #### 3 0965 #### [facility] [address] [facility] [place] [address], [facility] LEUK CHUYITA Negative Normal NEGATIVE [facility] Comment on above: Order Comment: Crite marisol for reflexing a culture was not met. Please call the lab at [phone] within 24 hours of collection time if culture is needed Performed By: #### 3 0965 #### [facility] [address] [facility] [place] [address], [facility] MICRO NOT DONE Normal [facility] Comment on above: Order Comment: Crite marisol for reflexing a culture was not met. Please call the lab at [phone] within 24 hours of collection time if culture is needed Result Comment: Micr oscopics not performed on urines with negative chemical reactions unless requested in original order Performed By: #### 3 0965 #### [facility] [address] [facility] [place] [address], [facility] Nitrite Ql (U) Negative Normal NEGATIVE [facility] Comment on above: Order Comment: Crite marisol for reflexing a culture was not met. Please call the lab at [phone] within 24 hours of collection time if culture is needed Performed By: #### 3 0965 #### [facility] [address] [facility] [place] [address], [facility] pH (U) 7.0 [pH] Normal 5.0-8.0 [facility] Comment on above: Order Comment: Crite marisol for reflexing a culture was not met. Please call the lab at [phone] within 24 hours of collection time if culture is needed Performed By: #### 3 0965 #### [facility] [address] [facility] [place] [address], [facility] Protein Ql (U) Negative Normal NEGATIVE [facility] Comment on above: Order Comment: Crite marisol for reflexing a culture was not met. Please call the lab at [phone] within 24 hours of collection time if culture is needed Performed By: #### 3 0965 #### [facility] [address] [facility]. [address] SPEC GRAV 1.014 Low 1.015-1.020 [facility] Comment on above: Order Comment: Crite marisol for reflexing a culture was not met. Please call the lab at [phone] within 24 hours of collection time if culture is needed Performed By: #### 3 0965 #### [facility] [address] [facility]. [address] POC URINE PREGNANCYon 2021 Beta HCG ( test) Ql (U) Negative Normal NEGATIVE [facility] Comment on above: Performed By: #### 8 4140 #### [facility] [address] MRI KNEE LEFT WO CONTRASTon 07-01-2021 No acute findings or internal derangement. Anatomy associated with patellofemoral maltracking. [facility] RIS CONSOLIDATED EXAMINATION: MRI OF THE LEFT [...] No evidence of fracture. Normal marrow signal. [facility] RIS Era Pratt D O - 07/01/2021 EXAMINATION: MRI OF [...] internal derangement. Anatomy associated with patellofemoral maltracking. [employer]: MRI KNEE LEFT WO CONTRASTOrd ered By: Era Goldberg on 07-01-2021 [employer]: MRI KNEE LEFT WO CONTRASTon 06-29-2021 Radiology Study observation (narrative) [employer]: Microscopic Urinalysison - [employer] Bacteria, UA MANY Abnormal None [employer] Epithelial Cells UA TOO NUMEROUS TO COUNT [facility] Interpretation and review of laboratory results Abnormal [facility] Jobber RBC, UA 10 TO 20 [facility] Comment on above: Reference range defi matthew for non-centrifuged specimen. WBC, UA TOO NUMEROUS TO COUNT [facility] , URINEon 2 Beta HCG ( test) Ql (U) Negative NEGATIVE [facility] Comment on above: Specimens with hCG l evels near the threshold of the test (25 mIU/mL) may give a negative or indeterminate result. In such cases, another test should be performed with a new specimen in 48-72 hours. If early is suspected clinically in this setting, correlation with quantitative serum b-hCG level is suggested. [employer] Urinalysis with Reflex to Cu ltureon 06-19-2021 Bilirubin Urine Negative NEGATIVE [facility] Color, UA Yellow Yellow [facility] [employer] Glucose, Ur Negative NEGATIVE [facility] Interpretation and review of laboratory results Abnormal [facility] Ketones Ql (U) Negative NEGATIVE [facility] Leukocyte esterase Test strip Ql (U) SMALL Abnormal NEGATIVE [facility] Nitrite, Urine Negative NEGATIVE [facility] pH, UA 7.0 [facility] [employer] Protein, UA 1+ Abnormal NEGATIVE [facility] Specific [place], UA 1.025 [employer] Turbidity UA Turbid Abnormal Clear [facility] Urine Hgb LARGE Abnormal NEGATIVE [facility] [employer] Urobilinogen, Urine Normal Normal [facility] CHEST AND LATERALon 05-15-19 22 CHEST AND LATERAL [facility] Department of Radiology [address] [place] [phone] Patient Name: SUSY DIAZ : 1995 Sex: F Age: Race: White Pt. Location: [facility] Patient Status: E Ordered Date: 05/14/2021 8:05:00 [...] radiograph. Electronically signed: Verna Lala. Transcribed by: [email or web address], User Resident: VERNA LALA Electronically Signed by: VERNA LALA @ 05/14/2021 09:07 PM I personally read this/these film(s) with this resident Normal [facility] Comment on above: Order Comment: evalu ate for Pneumonia POC SARS COV2 ANTIGEN NEGATI VEon 05-14-2021 POC SARS COV2 ANTIGEN NEG Negative Normal NEGATIVE [facility] Comment on above: Result Comment: [...] antigen from SARS-CoV-2 in direct nasopharyngeal swab (MERCHANDISING PROFESSOR) specimens from individuals who are suspected of [...] Accreditation. Performed By: #### 3 2044 #### [facility] [address] [facility] [place] [address], [facility] POC STREP SCREENon 2 STREP POC Negative Normal NEG [facility] Comment on above: Result Comment: Perf ormed in Emergency Department. Performed By: #### 3 0211 #### [facility] [address] [facility] [place] [address], [facility] CBCon 05-10-2021 Hematocrit (Bld) [Volume fraction] 39.1 % 36.3 - 47.1 % [facility] [employer] Hemoglobin.gastroint estinal spec 1 Ql (Stl) 11.8 g/dL Low 11.9 - 15.1 g/dL [facility] Interpretation and review of laboratory results Abnormal [facility] MCH (RBC) [Entitic mass] 23.2 pg Low 25.2 - 33.5 pg [facility] MCHC (RBC) [Mass/Vol] 30.2 g/dL 28.4 - 34.8 g/dL [facility] MCV (RBC) [Entitic vol] 76.8 fL Low 82.6 - 102.9 fL [facility] [employer] NRBC Automated 0.0 0.0 per 100 WBC [facility] [employer] Platelet distribution width (Bld) [Ratio] 17.0 % High 11.8 - 14.4 % [employer] Platelet mean volume (Bld) [Entitic vol] 12.4 fL 8.1 - 13.5 fL [facility] Platelets (Bld) [#/Vol] 337 10*3/uL [facility] RBC ([facility]ld) [#/Vol] 5.09 10*6/uL 3.95 - 5.1 1 m/uL [facility] WBC (Bld) [#/Vol] 9.9 10*3/uL [facility] Comprehensive Metabolic Pane reed 05-10-2021 Albumin [Mass/Vol] 4.1 g/dL 3.5 - 5.2 g/dL [facility] Albumin/Globulin [Mass ratio] 1.2 {ratio} [facility] ALP (Bld) [Catalytic activity/Vol] 88 U/L 35 - 104 U/L [facility] ALT [Catalytic activity/Vol] 13 U/L 5 - 33 U/L [facility] Anion gap [Moles/Vol] 14 mmol/L 9 - 17 mmol/L [facility] AST [Catalytic activity/Vol] 12 U/L <32 [facility] Bilirubin [Mass/Vol] mg/dL Low 0.3 - 1 .2 mg/dL [facility] Calcium [Mass/Vol] 9.1 mg/dL 8.6 - 10. 4 mg/dL [facility] Chloride [Moles/Vol] 103 mmol/L 98 - 10 7 mmol/L [facility] CO2 [Moles/Vol] 21 mmol/L 20 - 31 mmol/L [facility] Creatinine [Mass/Vol] 0.56 mg/dL 0.50 - 0.90 mg/dL [facility] Free PSA/Total PSA [Mass fraction] 7.6 g/dL 6.4 - 8.3 g/dL [facility] GFR >60 >60 mL/min [facility] GFR Non- >60 >60 mL/min [facility] GFR/1.73 sq M.predicted MDRD (S/P/Bld) [Vol rate/Area] [facility] Comment on above: Average GFR for 20-2 9 years old: 116 mL/min/1.73sq m Chronic Kidney Disease: <60 mL/min/1.73sq m Kidney failure: <15 mL/min/1.73sq m eGFR calculated using average adult body mass. Additional eGFR calculator available at: http://www.[employer].WaysGo/multiple_crcl_2012.htm Glucose [Mass/Vol] 87 mg/dL 70 - 99 mg/dL [facility] Interpretation and review of laboratory results Abnormal [facility] Potassium [Moles/Vol] 4.1 mmol/L 3.7 - 5.3 mmol/L [facility] Sodium [Moles/Vol] 138 mmol/L 135 - 144 mmol/L [facility] Urea nitrogen (BldV) [Mass/Vol] 9 mg/dL 6 - 20 mg/dL [facility] Hemoglobin A1Con 05-10-2021 Glucose [Mass/Vol] 123 mg/dL [facility] Comment on above: The ADA and AACC rec ommend providing the estimated average glucose result to permit better patient understanding of their HBA1c result. HbA1c (Bld) [Mass fraction] 5.9 % 4.0 - 6.0 % [facility] Hepatitis Panel, Acuteon HAV IgM IA Qn (S) Non-Reactive NONREACTIVE [facility] Hep B Core Ab, IgM Non-Reactive NONREACTIVE [facility] Hepatitis B Surface Ag Non-Reactive NONREACTIVE [facility] Hepatitis C Ab Non-Reactive NONREACTIVE [facility] Comment on above: The hepatitis C [...] recommended by ordering HCV RNA by PCR. [facility] Lipid Panelon 05-10-2021 Cholesterol [Mass/Vol] 152 mg/dL <200 [facility] Comment on above: Cholesterol Guidelines: <200 Desirable 200-240 Borderline >240 Undesirable Cholesterol in HDL [Mass/Vol] 37 mg/dL Low >40 [facility] Comment on above: HDL Guidelines: <40 Undesirable 40-59 Borderline >59 Desirable Cholesterol in LDL [Mass/Vol] 102 mg/dL 0 - 130 mg/dL [facility] Comment on above: LDL Guidelines: <100 Desirable 100-129 Near to/above Desirable 130-159 Borderline >159 Undesirable Direct (measured) LDL and calculated LDL are not interchangeable tests. Cholesterol.total/Ch olesterol in HDL [Mass ratio] 4.1 {ratio} <5 [facility] Interpretation and review of laboratory results Abnormal [facility] Triglyceride [Mass/Vol] 66 mg/dL <150 [facility] Comment on above: Triglyceride Guidelines: <150 Desirable 150-199 Borderline 200-499 High >499 Very high Based on AHA Guidelines for fasting triglyceride, November 2011. [facility] TSHon 05-10-2021 TSH Qn 1.78 m[IU]/L [facility] HCG, Quantitative, on 04-25-2021 hCG Quant <1 <5 IU/L [facility] Comment on above: Non-preg premeno <=5 Postmeno <=8 Male <=3 If HCG results do not concur with clinical observations, additional testing to confirm results is recommended. Elevated results not associated with may be found in patients with other diseases such as tumors of the germ cells (testis, ovaries, etc.), bladder, pancreas, stomach, lungs, and liver. [facility] *VAGINITIS DNA PROBEon 04-09 *VAGINITIS DNA PROBE Clinical Report: (D ) Specimen: GENITAL Collected: 04/09/2021 16:50 Status: Final Last Updated: 04/09/2021 19:29 MANUELA (Final) Negative CEM (Final) Positive TRICH (Final) Negative Normal [facility] Comment on above: Performed By: #### 8 [id number] #### [facility] [address] CBC W/DIFFon 04-09-2021 ABS IMM GRANS 0.0 10*3/uL Normal 0.0-0.2 [facility] Comment on above: Performed By: #### 5 0103 #### [facility] [address] ABS NEUTROPHILS 7.9 10*3/uL High 1.6-7.6 [facility] Comment on above: Performed By: #### 5 0103 #### [facility] [address] [place] [address], [facility] Basophils (Bld) [#/Vol] 0.1 10*3/uL Normal 0.0-0.2 [facility] Comment on above: Performed By: #### 5 0103 #### [facility] [address] [place] [address], [facility] Basophils/100 WBC (Bld) 0.5 % Normal 0.0-1.0 [facility] Comment on above: Performed By: #### 5 0103 #### [facility] [address] [place] [address], [facility] Eosinophils (Bld) [#/Vol] 0.3 10*3/uL Normal 0.0-0.5 [facility] Comment on above: Performed By: #### 5 0103 #### [facility] [address] [facility] [place] [address], [facility] Eosinophils/100 WBC (Bld) 2.4 % Normal 0.0-6.0 [facility] Comment on above: Performed By: #### 5 0103 #### [facility] [address] [facility] [address] Erythrocyte distribution width (RBC) [Ratio] 16.3 % High 11.5-15.0 [facility] Comment on above: Performed By: #### 5 0103 #### [facility] [address] [facility] Hematocrit (Bld) [Volume fraction] 38.3 % Normal 36.0-45.0 [facility] Comment on above: Performed By: #### 5 0103 #### [facility] [address] [facility]. [address] Hemoglobin (Bld) [Mass/Vol] 11.9 g/dL Low 12.0-15.0 [facility] Comment on above: Performed By: #### 5 0103 #### [facility] [address] [place] [address], [facility] IMMATURE GRANS 0.3 % Normal 0.0-1.0 [facility] Comment on above: Performed By: #### 5 0103 #### [facility] [address] [facility] [place] [address], [facility] Lymphocytes (Bld) [#/Vol] 2.4 10*3/uL Normal 1.2-4.0 [facility] Comment on above: Performed By: #### 3 #### [facility] [address] [facility] [place] [place] [address], [facility] Lymphocytes/100 WBC (Bld) 20.5 % Normal 20.0-45.0 [facility] Comment on above: Performed By: #### 5 0103 #### [facility] [address] [facility] [address], [facility] MCH (RBC) [Entitic mass] 23.5 pg Low 27.0-33.0 [facility] Comment on above: Performed By: #### 5 0103 #### [facility] [address] [facility] [place] [address], [facility] MCHC (RBC) [Mass/Vol] 31.1 g/dL Low 32.0-35.0 [facility] Comment on above: Performed By: #### 5 0103 #### [facility] [address] [place] [address], [facility] MCV (RBC) [Entitic vol] 75.5 fL Low 82.0-98.0 [facility] Comment on above: Performed By: #### 5 0103 #### [facility] [address] [facility] [place] [address], [facility] Monocytes (Bld) [#/Vol] 1.1 10*3/uL High 0.1-1.0 [facility] Comment on above: Performed By: #### 5 0103 #### [facility] [address] [facility] [place] [id number], [facility] MONOS 9.0 % Normal 5.0-12.0 [facility] Comment on above: Performed By: #### 5 0103 #### [facility] [address] [facility] [place] [id number], [facility] Neutrophils/100 WBC (Bld) 67.3 % Normal 40.0-72.0 [facility] Comment on above: Performed By: #### 5 3 #### [facility] [address] [place] [id number], [facility] Nucleated RBC/100 WBC (Bld) [Ratio] 0 % Normal 0-0 [facility] Comment on above: Performed By: #### 5 0103 #### [facility] [address] [facility] [place] [address], [facility] PLAT CNT 298 10*3/uL Normal 150-400 [facility] Comment on above: Performed By: #### 5 0103 #### [facility] [address] [facility] [place] [address], [facility] RBC (Bld) [#/Vol] 5.07 10*6/uL High 3.80-5.00 [facility] Comment on above: Performed By: #### 5 0103 #### [facility] [address] [facility] [place] [address], [facility] WBC (Bld) [#/Vol] 11.73 10*3/uL High 4.00-10.60 [facility] Comment on above: Performed By: #### 5 0103 #### [facility] [address] [facility]. [address] CHLAMYDIA/GONORRHEA BY TMAon 04-09-2021 CHLAMYDIA BY TMA Negative Normal NEGATIVE [facility] Comment on above: Result Comment: No C hlamydia trachomatis rRNA Detected. Performed By: #### 3 1627 #### [facility] [address] GONORRHEA BY TMA Negative Normal NEGATIVE [facility] Comment on above: Result Comment: No Neisseria gonorrhoeae rRNA Detected. The Aptima Combo 2 Assay is a FDA approved target amplification nucleic acid probe test that utilizes target capture for the in vitro qualitative detection and differentiation of ribosomal RNA (rRNA) from Chlamydia trachomatis (CT) and/or Neisseria gonorrhoeae (GC) to aid the diagnosis of chlamydial and/or gonococcal urogenital disease using the CloudAptitude System. The Aptima Combo2 Assay involves: target capture; target amplification by Commercial Credit Reviewer-Mediated Amplification (TMA); and detection of the amplification products (amplicon) by the Hybridization Protection Assay (HPA). The internal process controls of the [place] System monitor the target capture, amplification, and detection steps of the assay, this is NOT intended to control for sampling adequacy. Performed By: #### 3 1627 #### [facility] [address] [facility] COMP METABOLIC PANELon 04-09 Albumin [Mass/Vol] 4.1 g/dL Normal 3.5-5.7 [facility] Comment on above: Performed By: #### 8 [id number] #### [facility] [address] [facility] [place] [address], [facility] ALKALINE PHOSPH 73 IU/L Normal 34-104 [facility] Comment on above: Performed By: #### 8 4140 #### [facility] [address] [facility]. [address] ALT [Catalytic activity/Vol] 10 U/L Normal 7-52 [facility] Comment on above: Performed By: #### 8 4140 #### [facility] [address] [facility]. [address] AST [Catalytic activity/Vol] 14 U/L Normal 13-39 [facility] Comment on above: Performed By: #### 8 4140 #### [facility] [address] [facility] [place] [address], [facility] Bilirubin [Mass/Vol] 0.4 mg/dL Normal 0.3-1.0 [facility] Comment on above: Performed By: #### 8 4140 #### [facility] [address] [facility] [place] [address], [facility] Calcium [Mass/Vol] 9.1 mg/dL Normal 8.6-10.3 [facility] Comment on above: Performed By: #### 8 4140 #### [facility] [address] [place] [address], [facility] Chloride [Moles/Vol] 103 mmol/L Normal 98-107 [facility] Comment on above: Performed By: #### 8 4140 #### [facility] [address] [place] [address], [place] CO2 [Moles/Vol] 27 mmol/L Normal 21-31 [facility] Comment on above: Performed By: #### 8 4140 #### [facility] [address] [place] [address], [place] Creatinine [Mass/Vol] 0.66 mg/dL Normal 0.60-1.20 [facility] Comment on above: Performed By: #### 8 4140 #### [facility] [address] [place] [address], [place] GFR/1.73 sq M.predicted among blacks MDRD (S/P/Bld) [Vol rate/Area] mL/min/{1.73_m2} Normal >60 [facility] Comment on above: Performed By: #### 8 4140 #### [facility] [address] [place] [address], [place] GFR/1.73 sq M.predicted among non-blacks MDRD (S/P/Bld) [Vol rate/Area] mL/min/{1.73_m2} Normal >60 [facility] Comment on above: Performed By: #### 8 4140 #### [facility] [address] [place] [address], [place] Glucose [Mass/Vol] 79 mg/dL Normal 70-100 [facility] Comment on above: Performed By: #### 8 4140 #### [facility] [address] [place] [address], [place] Potassium [Moles/Vol] 3.7 mmol/L Normal 3.5-5.1 [facility] Comment on above: Performed By: #### 8 4140 #### [facility] [address] [place] [address], [place] Protein [Mass/Vol] 7.3 g/dL Normal 6.0-8.3 [facility] Comment on above: Performed By: #### 8 4140 #### [facility] [address] [place] [address], [facility] Sodium [Moles/Vol] 136 mmol/L Normal 136-145 [facility] Comment on above: Performed By: #### 8 4140 #### [facility] [address] [place] [address], [facility] Urea nitrogen [Mass/Vol] 7 mg/dL Normal 7-25 [facility] Comment on above: Performed By: #### 8 4140 #### [facility] [address] [facility] [place] [address], [facility] LIPASE BLOODon 04-09-2021 LIPASE 16 Units/L Normal 11-82 [facility] Comment on above: Performed By: #### 8 4140 #### [facility] [address] [facility] [place] [id number] [place] [address] POC URINE PREGNANCYon 2021 Beta HCG ( test) Ql (U) Negative Normal NEGATIVE [facility] Comment on above: Result Comment: Perf ormed in Emergency Department. Performed By: #### 8 4140 #### [facility] [address] [facility] [place] [address], [facility] URINALYSIS REFLEXon 04-09-19 22 Appearance (U) SL CLOUDY Abnormal CLEAR [facility] Comment on above: Order Comment: Crite marisol for reflexing a culture was not met. Please call the lab [id number] within 24 hours of collection time if culture is needed Performed By: #### 8 4140 #### [facility] [address] [place] [address], [facility] Bilirubin Ql (U) Negative Normal NEGATIVE [facility] Comment on above: Order Comment: Crite marisol for reflexing a culture was not met. Please call the lab [id number] within 24 hours of collection time if culture is needed Performed By: #### 8 4140 #### [facility] [address] [place] [address], [facility] Color (U) YELLOW Normal YELLOW [facility] Comment on above: Order Comment: Crite marisol for reflexing a culture was not met. Please call the lab [id number] within 24 hours of collection time if culture is needed Performed By: #### 8 4140 #### [facility] [address] [place] [address], [place] EPIS MANY Abnormal FEW,OCC,NONE SEEN [facility] Comment on above: Order Comment: Crite marisol for reflexing a culture was not met. Please call the lab [id number] within 24 hours of collection time if culture is needed Performed By: #### 8 4140 #### [facility] [address] [place] [address], [facility] Glucose Ql (U) Negative Normal NEGATIVE [facility] Comment on above: Order Comment: Crite marisol for reflexing a culture was not met. Please call the lab [id number] within 24 hours of collection time if culture is needed Performed By: #### 8 4140 #### [facility] [address] [place] [address], [place] Hemoglobin Ql (U) LARGE Abnormal NEGATIVE [facility] Comment on above: Order Comment: Crite marisol for reflexing a culture was not met. Please call the lab [id number] within 24 hours of collection time if culture is needed Performed By: #### 8 4140 #### [facility] [address] [place] [address], [facility] KETONE Negative Normal NEGATIVE [facility] Comment on above: Order Comment: Crite marisol for reflexing a culture was not met. Please call the lab [id number] within 24 hours of collection time if culture is needed Performed By: #### 8 4140 #### [facility] [address] [place] [address], [place] LEUK CHUYITA Negative Normal NEGATIVE [facility] Comment on above: Order Comment: Crite marisol for reflexing a culture was not met. Please call the lab [id number] within 24 hours of collection time if culture is needed Performed By: #### 8 4140 #### [facility] [address] [place] [address], [facility] MUCUS THREADS OCC Abnormal NONE SEEN [facility] Comment on above: Order Comment: Crite marisol for reflexing a culture was not met. Please call the lab [phone] within 24 hours of collection time if culture is needed Performed By: #### 8 4140 #### [facility] [address] [place] [address], [facility] Nitrite Ql (U) Negative Normal NEGATIVE [facility] Comment on above: Order Comment: Crite marisol for reflexing a culture was not met. Please call the lab [id number] within 24 hours of collection time if culture is needed Performed By: #### 8 4140 #### [facility] [address] [place] [address], [facility] pH (U) 7.0 [pH] Normal 5.0-8.0 [facility] Comment on above: Order Comment: Crite marisol for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 EXAMINATION: THREE X RAY VIEWS OF [...] normal limits. Surrounding soft tissues are unremarkable. Minus Phone: Froy, pn Incoming Radiant Results From [facility] - 08/28/2020 1:52 AM EDT EXAMINATION: THREE [...] Unremarkable radiographic views of the left ankle. Minus Phone: Minus Phone: No Panel InformationOrdered By: Magdy Mireles on 08-25-2020 1. No evidence of an acute fracture or traumatic malalignment involving the left wrist or left hand Minus Phone: EXAMINATION: 4 XRAY VIEWS OF THE [...] body is present. Joint spaces are preserved. Minus Phone: Froy, pn Incoming Radiant Results From [facility] - 08/25/2020 12:58 AM EDT EXAMINATION: 4 [...] involving the left wrist or left hand Minus Phone: Minus Phone: Basic Metabolic Panel w/ Ref veronica to MGon 04-23-2020 Anion gap [Moles/Vol] 9 mmol/L 9 - 17 mmol/L Minus Phone: Bun/Cre Ratio NOT REPORTED [employer] Work Phone: Calcium [Mass/Vol] 9.8 mg/dL 8.6 - 10. 4 mg/dL Minus Phone: Chloride [Moles/Vol] 101 mmol/L 98 - 10 7 mmol/L Minus Phone: CO2 [Moles/Vol] 24 mmol/L 20 - 31 mmol/L Minus Phone: Creatinine [Mass/Vol] 0.59 mg/dL 0.50 - 0.90 mg/dL Minus Phone: GFR >60 >60 mL/min IDbyME Phone: GFR Non- >60 >60 mL/min Minus Phone: GFR/1.73 sq M predicted among non-blacks MDRD (S/P/Bld) [Vol rate/Area] Minus Phone: Comment on above: Average GFR for 20-2 9 years old: 116 mL/min/1.73sq m Chronic Kidney Disease: <60 mL/min/1.73sq m Kidney failure: <15 mL/min/1.73sq m eGFR calculated using average adult body mass. Additional eGFR calculator available at: http://www.[employer].WaysGo/multiple_crcl_2012.htm GFR/1.73 sq M predicted among non-blacks MDRD (S/P/Bld) [Vol rate/Area] NOT REPORTED Minus Phone: Glucose [Mass/Vol] 113 mg/dL High 70 - 99 mg/dL Minus Phone: Interpretation and review of laboratory results Abnormal [employer] Phone: Potassium [Moles/Vol] 3.4 mmol/L Low 3.7 - 5.3 mmol/L [employer]us Phone: Sodium [Moles/Vol] 134 mmol/L Low 135 - 144 mmol/L [employer] Phone: Urea nitrogen [Mass/Vol] 7 mg/dL 6 - 20 mg/dL [employer] Phone: CBC Auto Differentialon 0 Basophils (Bld) [#/Vol] 0.05 10*3/uL [employer] Phone: Basophils/100 WBC (Bld) 1 % 0 - 2 % Minus Phone: Differential Type NOT REPORTED Minus Phone: Eosinophils (Bld) [#/Vol] 0.22 10*3/uL [employer] Phone: Eosinophils/100 WBC (Bld) 2 % 1 - 4 % [employer] Phone: Erythrocyte distribution width (RBC) [Ratio] 17.2 % High 11.8 - 14.4 % Minus Phone: Hematocrit (Bld) [Volume fraction] 43.0 % 36.3 - 47.1 % Minus Phone: Hemoglobin (Bld) [Mass/Vol] 13.4 g/dL 11.9 - 15.1 g/dL [employer] Phone: Immature granulocytes (Bld) [#/Vol] 10*3/uL [employer] Phone: Immature granulocytes (Bld) [#/Vol] 0 % 0 Minus Phone: Interpretation and review of laboratory results Abnormal [employer] Phone: Lymphocytes (Bld) [#/Vol] 3.70 10*3/uL [employer] Phone: Lymphocytes/100 WBC (Bld) 34 % 24 - 43 % [employer] Work Phone: MCH (RBC) [Entitic mass] 25.1 pg Low 25.2 - 33.5 pg [employer] Work Phone: MCHC (RBC) [Mass/Vol] 31.2 g/dL 28.4 - 34.8 g/dL [employer] Work Phone: MCV (RBC) [Entitic vol] 80.7 fL Low 82.6 - 102.9 fL [employer] Work Phone: Monocytes (Bld) [#/Vol] 0.77 10*3/uL [employer] Work Phone: Monocytes/100 WBC (Bld) 7 % 3 - 12 % [employer] Work Phone: Platelet mean volume (Bld) [Entitic vol] 11.6 fL 8.1 - 13.5 fL [employer] Work Phone: Platelets (Bld) [#/Vol] 306 10*3/uL [employer] Work Phone: Platelets (Bld) [#/Vol] NOT REPORTED [employer] Work Phone: RBC (Bld) [#/Vol] 5.33 10*6/uL High 3.95 - 5.1 1 m/uL [employer] Work Phone: RBC morphology finding Nom (Bld) ANISOCYTOSIS PRESENT [facility] [facility] Work Phone: Comment on above: MICROCYTOSIS PRESENT Segmented neutrophils/100 WBC (Bld) 56 % 36 - 65 % [employer] Work Phone: Segs Absolute 6.29 [facility] Work Phone: WBC (Bld) [#/Vol] 0.0 10*3/uL 0.0 per 10 0 WBC [employer] Work Phone: WBC (Bld) [#/Vol] 11.1 10*3/uL [employer] Phone: WBC Morphology NOT REPORTED [employer] Phone: CT ABDOMEN PELVIS W IV CONTR AST Additional Contrast? Noneon 04-23-2020 EXAMINATION: CT OF Bob MOLINA ABDOMEN AND PELVIS WITH CONTRAST 04/23/2020 1:17 [...] major branches. Bones/Soft Tissues: Intact osseous structures. [employer] Phone: No acute finding in the abdomen and pelvis. Normal appendix. [employer] Phone: Froy, Mhpn Incoming Radiant Results From [facility] - 04/23/2020 2:01 AM EST EXAMINATION: CT [...] in the abdomen and pelvis. Normal appendix. [employer] Phone: HCG Qualitative, Serumon hCG Qual Negative NEGATIVE [employer] Phone: Comment on above: Specimens with hCG l evels near the threshold of the test (25 mIU/mL) may give a negative or indeterminate result. In such cases, another test should be performed with a new specimen in 48-72 hours. If early is suspected clinically in this setting, correlation with quantitative serum b-hCG level is suggested. [facility] has confirmed the use of plasma for this test. This has not been cleared or approved by the U.S. Food and Drug Administration. The FDA has determined that such clearance is not necessary. Hepatic Function Panelon Albumin [Mass/Vol] 3.9 g/dL 3.5 - 5.2 g/dL [employer] Phone: Albumin/Globulin [Mass ratio] 1.0 {ratio} [employer] Phone: ALP [Catalytic activity/Vol] 90 U/L 35 - 104 U/L [employer] Phone: ALT [Catalytic activity/Vol] 10 U/L 5 - 33 U/L [employer] Phone: AST [Catalytic activity/Vol] 11 U/L <32 [employer] Phone: Bilirubin Ql (U) 0.16 mg/dL Low 0.3 - 1.2 mg/dL [employer] Phone: Bilirubin, Indirect 0.07 mg/dL 0.00 - 1 .00 mg/dL [employer] Phone: Bilirubin.direct [Mass/Vol] 0.09 mg/dL <0.31 [employer] Phone: Globulin (S) [Mass/Vol] NOT REPORTED 1.5 - 3.8 g/dL [employer] Phone: Interpretation and review of laboratory results Abnormal [employer] Phone: Protein [Mass/Vol] 7.9 g/dL 6.4 - 8.3 g/dL [employer] Phone: Lipaseon 04-23-2020 Lipase [Catalytic activity/Vol] 25 U/L 13 - 60 U/L [employer] Phone: Magnesiumon 04-23-2020 Magnesium [Mass/Vol] 1.7 mg/dL 1.6 - 2 .6 mg/dL [employer] Phone: Otheron 04-23-2020 Froy, Mhpn Incoming Radiant Results From [facility] - 04/23/2020 4:11 AM EST EXAMINATION: PELVIC [...] of ovarian torsion. No evidence of PCOS. [employer] Phone: EXAMINATION: PELVIC ULTRASOUND; ULTRASOUND OF THE [...] Free Fluid: No evidence of free fluid. [employer] Phone: Unremarkable pelvic ultrasound. No sonographic evidence of ovarian torsion. No evidence of PCOS. [employer] Phone: Direct Exam Negative [employer] Phone: URINALYSIS WITH MICROSCOPICo n 04-23-2020 Amorphous, UA NOT REPORTED None [employer] Work Phone: Bacteria, UA MANY Abnormal None [employer] Phone: Bilirubin Urine Negative NEGATIVE [employer] Phone: Casts UA 5 TO 10 HYALINE Refe rence range defined for non-centrifuged specimen. [employer] Phone: Color, UA YELLOW YELLOW [employer] Phone: Crystals, UA CALCIUM OXALATE Abnormal None /HPF [employer] [facility] Work Phone: Crystals, UA MANY Abnormal None /HPF [facility] [employer] Work Phone: Epithelial Cells UA 10 TO 20 [facility] [employer] Work Phone: Glucose, Ur Negative NEGATIVE [facility] Work Phone: Interpretation and review of laboratory results Abnormal [facility] [employer] Work Phone: Ketones Ql (U) TRACE Abnormal NEGATIVE [facility] Work Phone: Leukocyte esterase Test strip Ql (U) MODERATE Abnormal NEGATIVE [facility] [employer] Work Phone: Mucus, UA NOT REPORTED None [facility] [employer] Work Phone: Nitrite, Urine Negative NEGATIVE [facility] Work Phone: Other Observations UA NOT REPORTED NOT REQ. [facility] [employer] Work Phone: pH, UA 6.0 [facility] [employer] Work Phone: Protein (U) [Mass/Vol] 1+ Abnormal NEGATIVE [facility] [employer] Work Phone: RBC (U) [#/Vol] 2 TO 5 [facility] Work Phone: Comment on above: Reference range defi matthew for non-centrifuged specimen. Renal Epithelial, UA NOT REPORTED 0 /HPF [facility] [employer] Work Phone: Specific [place], UA 1.027 [facility] [employer] Work Phone: Trichomonas, UA NOT REPORTED None [facility] Work Phone: Turbidity UA TURBID Abnormal CLEAR [facility] [employer] Work Phone: Urine Hgb TRACE Abnormal NEGATIVE [facility] [employer] Work Phone: Urobilinogen, Urine Normal Normal [facility] Work Phone: WBC, UA TOO NUMEROUS TO COUNT [facility] Work Phone: Yeast, UA NOT REPORTED None [facility] [employer] Work Phone: - [employer] Phone: VAGINITIS DNA PROBEon 2020 Direct Exam Method of testing is a DNA probe intended for detection and identification of Manuela species, Gardnerella vaginalis, and Trichomonas vaginalis nucleic acid in vaginal fluid specimens from patients with symptoms of vaginitis/vaginosis. [employer] Phone: Direct Exam Positive Abnormal [employer] Phone: Interpretation and review of laboratory results Abnormal [employer] Phone: Special Requests NOT REPORTED [employer] Phone: Specimen Description .VAGINA [employer] Phone: XR CHEST (2 VW)on 12-17-2019 No significant abnormalities detected. [facility] [place] EXAMINATION: TWO XRA Y VIEWS OF THE CHEST 12/17/2019 8:58 pm COMPARISON: 12/01/2019 HISTORY: ORDERING SYSTEM PROVIDED HISTORY: Cough, reproducible chest pain TECHNOLOGIST PROVIDED HISTORY: Cough, reproducible chest pain FINDINGS: The cardiomediastinal silhouette is normal. No focal consolidation. The pulmonary vascularity is normal. There is no pleural effusion or pneumothorax. Osseous structures grossly intact. [place] Froy, Mhpn Incoming Radiant Results From [facility] - 12/17/2019 9:11 PM EDT EXAMINATION: TWO XRAY VIEWS OF THE CHEST 12/17/2019 8:58 pm COMPARISON: 12/01/2019 HISTORY: ORDERING SYSTEM PROVIDED HISTORY: Cough, reproducible chest pain TECHNOLOGIST PROVIDED HISTORY: Cough, reproducible chest pain FINDINGS: The cardiomediastinal silhouette is normal. No focal consolidation. The pulmonary vascularity is normal. There is no pleural effusion or pneumothorax. Osseous structures grossly intact. IMPRESSION: No significant abnormalities detected. [facility] [place] XR CHEST PORTABLEon 12-01-19 No acute process. [place] EXAMINATION: ONE XRA Y VIEW OF THE [...] The osseous structures are without acute process. [place] Froy, Mhpn Incoming Radiant Results From [facility] - 12/01/2019 1:09 AM EDT EXAMINATION: ONE [...] without acute process. IMPRESSION: No acute process. [place] Troponinon 11-29-2019 Troponin I.cardiac [Mass/Vol] NOT REPORTED [place] Troponin T.cardiac [Mass/Vol] NOT REPORTED <0.03 ng/mL [place] Troponin, High Sensitivity <6 0 - 14 ng/L [place] Comment on above: High Sensitivity Troponin values cannot be compared with other Troponin methodologies. Patients with high levels of Biotin oral intake (i.e >5mg/day) may have falsely decreased Troponin levels. Samples collected within 8 hours of biotin intake may require additional information for diagnosis. Troponin I.cardiac [Mass/Vol] NOT REPORTED [place] Troponin T.cardiac [Mass/Vol] NOT REPORTED <0.03 ng/mL [place] Troponin, High Sensitivity <6 0 - 14 ng/L [place] Comment on above: High Sensitivity Troponin values cannot be compared with other Troponin methodologies. Patients with high levels of Biotin oral intake (i.e >5mg/day) may have falsely decreased Troponin levels. Samples collected within 8 hours of biotin intake may require additional information for diagnosis. BASIC METABOLIC PANELon 11-17 Anion gap [Moles/Vol] 11 mmol/L 9 - 17 mmol/L [place] Bun/Cre Ratio NOT REPORTED [facility] [place] Calcium [Mass/Vol] 9.2 mg/dL 8.6 - 10. 4 mg/dL [place] Chloride [Moles/Vol] 104 mmol/L 98 - 10 7 mmol/L [place] CO2 [Moles/Vol] 24 mmol/L 20 - 31 mmol/L [place] Creatinine [Mass/Vol] 0.51 mg/dL 0.5 - 0.9 mg/dL [place] GFR >60 >60 mL/min [place] GFR Non- >60 >60 mL/min [place] GFR/1.73 sq M predicted among non-blacks MDRD (S/P/Bld) [Vol rate/Area] NOT REPORTED [place] GFR/1.73 sq M predicted among non-blacks MDRD (S/P/Bld) [Vol rate/Area] [place] Comment on above: Average GFR for 20-2 9 years old: 116 mL/min/1.73sq m Chronic Kidney Disease: <60 mL/min/1.73sq m Kidney failure: <15 mL/min/1.73sq m eGFR calculated using average adult body mass. Additional eGFR calculator available at: http://www.Compass-EOS/multiple_crcl_2011.htm Glucose [Mass/Vol] 136 mg/dL High 70 - 99 mg/dL [place] Interpretation and review of laboratory results Abnormal [place] Potassium [Moles/Vol] 3.8 mmol/L 3.7 - 5.3 mmol/L [place] Sodium [Moles/Vol] 139 mmol/L 135 - 144 mmol/L [place] Urea nitrogen [Mass/Vol] 6 mg/dL 6 - 20 mg/dL [place] CBC Auto Differentialon 11-17 Basophils (Bld) [#/Vol] 0.05 10*3/uL [place] Basophils/100 WBC (Bld) 0 % 0 - 2 % [place] Differential Type NOT REPORTED [place] Eosinophils (Bld) [#/Vol] 0.18 10*3/uL [place] Eosinophils/100 WBC (Bld) 1 % 1 - 4 % [place] Erythrocyte distribution width (RBC) [Ratio] 16.7 % High 11.8 - 14.4 % [place] Hematocrit (Bld) [Volume fraction] 39.5 % 36.3 - 47.1 % [place] Hemoglobin (Bld) [Mass/Vol] 12.5 g/dL 11.9 - 15.1 g/dL [place] Immature granulocytes (Bld) [#/Vol] 0 % 0 [place] Immature granulocytes (Bld) [#/Vol] 0.05 10*3/uL [place] Interpretation and review of laboratory results Abnormal [place] Lymphocytes (Bld) [#/Vol] 1.65 10*3/uL [place] Lymphocytes/100 WBC (Bld) 13 % Low 24 - 43 % [place] MCH (RBC) [Entitic mass] 26.7 pg 25.2 - 33.5 pg [place] MCHC (RBC) [Mass/Vol] 31.6 g/dL 28.4 - 34.8 g/dL [place] MCV (RBC) [Entitic vol] 84.2 fL 82.6 - 102.9 fL [place] Monocytes (Bld) [#/Vol] 1.07 10*3/uL [place] Monocytes/100 WBC (Bld) 8 % 3 - 12 % [place] Platelet mean volume (Bld) [Entitic vol] 11.7 fL 8.1 - 13.5 fL [place] Platelets (Bld) [#/Vol] 209 10*3/uL [place] Platelets (Bld) [#/Vol] NOT REPORTED [place] RBC (Bld) [#/Vol] 4.69 10*6/uL 3.95 - 5.1 1 m/uL [place], [place] RBC morphology finding Nom (Bld) ANISOCYTOSIS PRESENT [facility] [place] [place] Segmented neutrophils/100 WBC (Bld) 78 % High 36 - 65 % [place] Segs Absolute 9.91 High [place] WBC (Bld) [#/Vol] 12.9 10*3/uL High [place] WBC (Bld) [#/Vol] 0.0 10*3/uL 0.0 per 10 0 WBC [place] WBC Morphology NOT REPORTED [place], [place] D-DIMER, QUANTITATIVEon 11-17 D-Dimer, Quant 0.27 mg/L FEU [place] Comment on above: When combined with [...] HCG Qualitative, Serumon hCG Qual Negative NEGATIVE [place] Comment on above: Specimens with hCG l evels near the threshold of the test (25 mIU/mL) may give a negative or indeterminate result. In such cases, another test should be performed with a new specimen in 48-72 hours. If early is suspected clinically in this setting, correlation with quantitative serum b-hCG level is suggested. [facility] has confirmed the use of plasma for this test. This has not been cleared or approved by the U.S. Food and Drug Administration. The FDA has determined that such clearance is not necessary. SPECIMEN REJECTIONon 020 Ordered Test CDP [place], [place] Reason for Rejection Unable to perform testing: Specimen clotted. [place], [place] Specimen source Nom (Unsp spec) .BLOOD [place], [place] - NOT REPORTED [place] XR CHEST PORTABLEon 11-28-19 EXAMINATION: ONE [...] pneumothorax. No acute osseous abnormality is identified. [place] No acute cardiopulmo nary abnormality. [place] Froy, Mhpn Incoming Radiant Results From [facility] - 11/28/2019 10:21 PM EDT EXAMINATION: ONE [...] is identified. IMPRESSION: No acute cardiopulmonary abnormality. [place] Strep Gr A Direct Agon 09-09 Strep Gr A Direct Ag Specimen Descriptio n .THROAT Special Requests NOT REPORTED Direct Exam Rapid Strep A negative. A negative Rapid Group A Strep Screen result does not rule out the possibility of Group A Streptococci in the specimen. A Group A Strep DNA test is available upon request. Report Status FINAL 09/10/2019 Normal [facility] Comment on above: Performed By: #### S GPA #### [facility] [address] [place] [address] Phlebotomist: Shabbir Torres MD CT Chest Pulmonary Embolism [...] No acute bone or soft tissue abnormality. [facility] [place] [place] Froy, Mhpn Incoming Radiant Results From [facility] - 08/09/2019 1:51 AM EDT EXAMINATION: CTA [...] clinical symptoms. No evidence of pulmonary embolism. [place] Dependent ground-gla ss opacities possibly edema or atelectasis. Pneumonitis or less likely pneumonia are also considered. Please correlate appropriate clinical symptoms. No evidence of pulmonary embolism. [place] HCG Qualitative, Serumon hCG Qual Negative NEGATIVE [place] Comment on above: Specimens with hCG [...] Differentialon 07-19 Basophils (Bld) [#/Vol] 0.00 10*3/uL [place] Basophils/100 WBC (Bld) 0 % 0 - 2 % [place] Differential Type NOT REPORTED [place] Eosinophils (Bld) [#/Vol] 0.30 10*3/uL [place] Eosinophils/100 WBC (Bld) 3 % 0 - 4 % [place] Erythrocyte distribution width (RBC) [Ratio] 16.5 % High 11.5 - 14.9 % [place] Hematocrit (Bld) [Volume fraction] 39.4 % 36 - 46 % [place] Hemoglobin (Bld) [Mass/Vol] 12.8 g/dL 12 - 16 g/dL [place] Interpretation and review of laboratory results Abnormal [place] Lymphocytes (Bld) [#/Vol] 2.90 10*3/uL [place] Lymphocytes/100 WBC (Bld) 27 % 24 - 44 % [place] MCH (RBC) [Entitic mass] 25.6 pg Low 26 - 34 pg [place] MCHC (RBC) [Mass/Vol] 32.4 g/dL 31 - 37 g/dL [place] MCV (RBC) [Entitic vol] 79.0 fL Low 80 - 100 fL [place] Monocytes (Bld) [#/Vol] 0.70 10*3/uL [place] Monocytes/100 WBC (Bld) 7 % 1 - 7 % [place] Platelet mean volume (Bld) [Entitic vol] 9.5 fL 6 - 12 fL [place], [place] Platelets (Bld) [#/Vol] NOT REPORTED [place], [place] Platelets (Bld) [#/Vol] 238 10*3/uL [place] RBC (Bld) [#/Vol] 4.99 10*6/uL 4 - 5.2 m/uL [place], [place] RBC morphology finding Nom (Bld) NOT REPORTED [place] Segmented neutrophils/100 WBC (Bld) 63 % 36 - 66 % [place] Segs Absolute 6.70 [place] WBC (Bld) [#/Vol] 10.7 10*3/uL [place] WBC (Bld) [#/Vol] NOT REPORTED per 100 WBC [place], [place] WBC Morphology NOT REPORTED [place] Comprehensive Metabolic Pane l w/ Reflex to MGon 08-08-2019 Albumin [Mass/Vol] 3.6 g/dL 3.5 - 5.2 g/dL [place] Albumin/Globulin [Mass ratio] NOT REPORTED [place] ALP [Catalytic activity/Vol] 86 U/L 35 - 104 U/L [place] ALT [Catalytic activity/Vol] 11 U/L 5 - 33 U/L [place] Anion gap [Moles/Vol] 11 mmol/L 9 - 17 mmol/L [place] AST [Catalytic activity/Vol] 11 U/L <32 [place] Bilirubin Ql (U) 0.17 mg/dL Low 0.3 - 1.2 mg/dL [place], [place] Bun/Cre Ratio NOT REPORTED [place], [place] Calcium [Mass/Vol] 9.1 mg/dL 8.6 - 10. 4 mg/dL [place] Chloride [Moles/Vol] 102 mmol/L 98 - 10 7 mmol/L [place] CO2 [Moles/Vol] 26 mmol/L 20 - 31 mmol/L [place] Creatinine [Mass/Vol] 0.67 mg/dL 0.5 - 0.9 mg/dL [place] GFR >60 >60 mL/min [place], [place] GFR Non- >60 >60 mL/min [place] GFR/1.73 sq M predicted among non-blacks MDRD (S/P/Bld) [Vol rate/Area] [place], [place] Comment on above: Average GFR for 20-2 9 years old: 116 mL/min/1.73sq m Chronic Kidney Disease: <60 mL/min/1.73sq m Kidney failure: <15 mL/min/1.73sq m eGFR calculated using average adult body mass. Additional eGFR calculator available at: http://www.Compass-EOS/multiple_crcl_2012.htm GFR/1.73 sq M predicted among non-blacks MDRD (S/P/Bld) [Vol rate/Area] NOT REPORTED [place], [place] Glucose [Mass/Vol] 94 mg/dL 70 - 99 mg/dL [place] Interpretation and review of laboratory results Abnormal [place] Potassium [Moles/Vol] 3.9 mmol/L 3.7 - 5.3 mmol/L [place] Protein [Mass/Vol] 7.3 g/dL 6.4 - 8.3 g/dL [place] Sodium [Moles/Vol] 139 mmol/L 135 - 144 mmol/L [place] Urea nitrogen [Mass/Vol] 9 mg/dL 6 - 20 mg/dL [place], [place] Lipaseon 08-08-2019 Lipase [Catalytic activity/Vol] 25 U/L 13 - 60 U/L [place] Microscopic Urinalysison Amorphous, UA 1+ Abnormal None [place], [place] Bacteria, UA MODERATE Abnormal None [place], [place] Casts UA NOT REPORTED /LPF [place], [place] Crystals, UA NOT REPORTED None /HPF [place] Epithelial Cells UA 5 TO 10 /HPF [place], [place] Interpretation and review of laboratory results Abnormal [place], [place] Mucus, UA NOT REPORTED None [place], [place] Other Observations UA NOT REPORTED NOT REQ. [place], [place] RBC (U) [#/Vol] 20 TO 50 /HPF [place], [place] Renal Epithelial, UA NOT REPORTED 0 /HPF [place] Trichomonas, UA NOT REPORTED None [facility] [place] WBC, UA 10 TO 20 /HPF [place], [place] Yeast, UA NOT REPORTED None [place], [place] - [place] Otheron 08-08-2019 Immature granulocytes (Bld) [#/Vol] NOT REPORTED [place], [place] Urinalysis Reflex to Culture on 08-08-2019 Bilirubin Urine Presumptive positive . Unable to confirm due to unavailability of reagent. Abnormal NEGATIVE [place], [place] Color, UA DARK YELLOW Abnormal YELLOW [place], [place] Glucose, Ur Negative NEGATIVE [place] Interpretation and review of laboratory results Abnormal [place], [place] Ketones Ql (U) Negative NEGATIVE [place] Leukocyte esterase Test strip Ql (U) MOD Abnormal NEGATIVE [place], [place] Nitrite, Urine Negative NEGATIVE [place] pH, UA 6.0 [place], [place] Protein (U) [Mass/Vol] 1+ Abnormal NEGATIVE [place], [place] Specific [place], UA 1.023 [place], [place] Turbidity UA TURBID Abnormal CLEAR [place], [place] Urinalysis Comments NOT REPORTED [place], [place] Urine Hgb LARGE Abnormal NEGATIVE [place] Urobilinogen, Urine Normal Normal [place] CULTURE THROATon 04-21-2019 CULTURE THROAT Culture [...] F Ticarcillin/Clavulanic Acid S F Normal [facility] Comment on above: Performed By: #### S SCRN, THRTCX #### [facility] [address] [place] [address] Gigi Recio INFLUENZA A AND B AGon 04-13 [facility] BELOW Normal [facility] Comment on above: Result Comment: Nega tive for Flu A protein angiten. Infection due to Flu A cannot be ruled out. Flu A angiten in the sample may be below the detection limit of the test. Performed By: #### I NFLUAB #### [facility] [address] [place] [address] Gigi Recio INFLUBNEGH SEE BELOW Normal [facility] Comment on above: Result Comment: Nega tive for Flu B protein antigen. Infection due to Flu B cannot be ruled out. Flu B antigen in the sample may be below the detection limit of the test. Performed By: #### I NFLUAB #### [facility] [address] [address] Gigi Recio INFLUENZA A AG Negative Normal NEGATIVE SEE COMMENT [facility] Comment on above: Performed By: #### I NFLUAB #### [facility] [address] [address] Gigi Recio INFLUENZA B AG Negative Normal NEGATIVE SEE COMMENT [facility] Comment on above: Performed By: #### I NFLUAB #### [facility] [address] [address] Gigi Recio INTERNAL CONTROLS Within Normal Limits Normal Wi thin Normal Limits [facility] Comment on above: Performed By: #### I NFLUAB #### [facility] [address] [address] Gigi Recio STREPT SCREENon 04-13-2019 STREP SCREEN A Negative Normal NEGATIVE [facility] Comment on above: Performed By: #### S SCRN, THRTCX #### [facility] [address] [place] [address] Gigi Recio Acetaminophenon 08-24-2017 Acetaminophen mass conc <5 Low 10-30 [facility] Alcoholon 08-24-2017 Blood Alcohol Concentration Not indicated Normal [facility] Ethanol mg/dL Normal [facility] CBC With Platelet and Differ entialon 08-24-2017 Anisocytosis presence 2+ Normal [facility] Microcytic 2+ Normal [facility] Poikilocytosis 1+ Normal [facility] Basophils Auto #/vol (Bld) 0.0 10*3/uL Normal 0.0-0.2 [facility] Basophils/100 WBC Auto (Bld) 0.4 % Normal [facility] Eosinophils 0.1 10*3/uL Normal 0.0-0.7 [facility] Eosinophils/100 leukocytes 0.7 % Normal [facility] Erythrocyte distribution width Auto Ratio (RBC) 18.8 % Critically high 11.5-14.5 [facility] Erythrocytes (RBC) 4.99 10*6/uL Normal 4.20-5.40 [facility] Hematocrit (HCT) 37.1 % Normal 37.0-47.0 [facility] Hemoglobin mass conc (Bld) 11.5 g/dL Low 12.0-16.0 [facility] Lymphocytes 2.0 10*3/uL Normal 1.0-4.8 [facility] Lymphocytes/100 leukocytes 16.8 % Normal [facility] MCH 23.0 pg Low 27.0-31.3 [facility] MCHC mass conc (RBC) 30.9 % Low 33.0-37.0 [facility] MCV 74.4 fL Low 82.0-100.0 [facility] Monocytes 1.0 10*3/uL Critically high 0.2-0.8 [facility] Monocytes/100 leukocytes 8.4 % Normal [facility] Neutrophils 8.7 10*3/uL Critically high 1.4-6.5 [facility] Neutrophils/100 leukocytes 73.7 % Normal [facility] Platelets 232 10*3/uL Normal 130-400 [facility] WBC (Leukocytes) 11.8 10*3/uL Critically high 4.5-11.0 [facility] CKMB with Indexon 08-24-2017 CKMB ng/mL Normal 0.0-3.8 [facility] CKMB 1.5 % Normal 0.0-3.5 [facility] Creatine kinase (CK) 65 U/L Normal 0-170 [facility] Comprehensive Metabolic Pane reed 08-24-2017 Alanine aminotransferase (ALT) 14 U/L Normal 0-33 [facility] Albumin 3.8 g/dL Low 3.9-4.9 [facility] Alkaline phosphatase (ALP) 87 U/L Normal 40-130 [facility] Anion gap 10 mmol/L Normal 7-13 [facility] Aspartate aminotransferase (AST) 15 U/L Normal 0-35 [facility] Bilirubin (total) mg/dL Normal 0.0-1.2 [facility] Calcium 9.3 mg/dL Normal 8.6-10.2 [facility] Chloride 105 mmol/L Normal 98-107 [facility] CO2 26 mmol/L Normal 22-29 [facility] Creatinine 0.55 mg/dL Normal 0.50-0.90 [facility] eGFR (black) mL/min/{1.73_m2} Normal >60 [facility] Comment on above: Result Comment: >60 mL/min/1.73m2 EGFR, calc. for ages 18 and older using theMDRD formula (not corrected for weight), is valid for stablerenal function. eGFR (MDRD) mL/min/{1.73_m2} Normal >60 [facility] Comment on above: Result Comment: >60 mL/min/1.73m2 EGFR, calc. for ages 18 and older using theMDRD formula (not corrected for weight), is valid for stablerenal function. Globulin 3.8 g/dL Critically high 2.3-3.5 [facility] Glucose mass conc 112 mg/dL Critically high 74-109 [facility] Potassium molar conc 3.6 mmol/L Normal 3.5-5.1 [facility] Protein 7.6 g/dL Normal 6.4-8.1 [facility] Sodium 141 mmol/L Normal 132-144 [facility] Urea nitrogen 6 mg/dL Normal 6-20 [facility] Culture, Urineon 08-24-2017 Culture, Urine OR DERED BY: NAYANA MOSQUERA: Urine Clean Catch COLLECTED: 08/24/17 17:15ANTIBIOTICS AT ZIGGY.: RECEIVED : 08/24/17 17:42Culture, Urine FINAL 08/26/17 09:21 No growth 24 hours Normal [facility] Salicylateon 08-24-2017 Salicylate <0.3 Low 15.0-30.0 [facility] Comment on above: Result Comment: Anti -pyretic: 3.0-10.0 mg/dLAnti-inflammatory: 15.0-30.0 mg/dLToxic: >30.0 mg/dL TSH w/out Reflexon 8 Thyroid stimulating hormone (TSH) 2.360 uIU/mL Normal 0.270-4.20 [facility] UR Drugs of Abuse Panelon Drug Screen Comment see below Normal [facility] Comment on above: Result Comment: This method is a screening test to detect only these drugclasses as part of a medical workup. Confirmatory testingby another method should be ordered if clinically indicated. UR Amphetamines Screen Negative Normal Negative < [facility] UR Barbiturates Screen Negative Normal Negative < [facility] UR Benzo Screen Negative Normal Negative < [facility] UR Cannabinoids Screen Negative Normal Negative < [facility] UR Cocaine Screen Negative Normal Negative < [facility] UR Opiates Screen Negative Normal Negative < [facility] UR PCP Screen Negative Normal Negative < [facility] UR HCG Qualitativeon 018 HCG.beta subunit ( test) Ql (U) Negative Normal Detects HC [facility] Urinalysis, reflex to cultur shane 08-24-2017 Bilirubin Ql (U) Negative Normal Negative [facility] Urine Reflexed to Culture YES Normal [facility] Urine, clarity CLOUDY Abnormal Clear [facility] Urine, color Yellow Normal Straw/Izard [facility] Urine, glucose presence Negative Normal Negative [facility] Urine, hemoglobin presence LARGE Abnormal Negative [facility] Urine, ketones presence Negative Normal Negative [facility] Urine, leukocyte esterase presence SMALL Abnormal Negative [facility] Urine, nitrite presence Negative Normal Negative [facility] Urine, pH 6.5 [pH] Normal 5.0-9.0 [facility] Urine, protein presence Negative Normal Negative [facility] Urine, specific gravity 1.011 Normal 1.005-1.03 [facility] Urine, urobilinogen 1.0 {Bala'U}/dL Normal < 2.0 [facility] Urine Microscopicon 08-25-19 18 Urine Renal Epithelial 3-5 Normal [facility] Urine, bacteria in sediment Few Normal [facility] Urine, epithelial cells presence in sediment 5-10 Normal [facility] Urine, erythrocytes 5-10 Abnormal 0-2 [facility] Urine, leukocytes 6-10 Abnormal 0-5 [facility] Laboratory Studieson 017 Appearance (U) Clear [facility] Bacteria LM.HPF (Urine sed) [#/Area] None seen [facility] Beta HCG ( test) Ql (U) Negative [facility] Bilirubin Ql (U) Negative [facility] Color (U) Yellow [facility] Epithelial cells.squamous LM.HPF (Urine sed) [#/Area] 5-9 /HPF High [facility] Glucose (U) [Mass/Vol] Normal mg/dL [facility] Hyaline casts LM Ql (Urine sed) None seen /LPF [facility] Ketones Ql (U) Negative [facility] Leukocyte esterase Test strip Ql (U) 3+ High [facility] Nitrite Ql (U) Negative [facility] pH (U) 7.0 [pH] 5.0-9.0 [facility] Protein Ql (U) Negative [facility] RBC (U) [#/Vol] 1-2 /HPF [facility] Specific gravity (U) [Rel density] 1.011 1.001-1.030 [facility] Urine Occult Blood Negative [facility] Urobilinogen Qn (U) Normal mg/dL [facility] WBC (U) [#/Vol] 3-4 /HPF [facility] Laboratory Studieson 017 Albumin [Mass/Vol] 3.8 g/dL 3.2-5.5 [facility] Albumin/Globulin [Mass ratio] 1.0 {ratio} [facility] ALP [Catalytic activity/Vol] 72 U/L 32-92 [facility] ALT [Catalytic activity/Vol] 19 U/L 10-60 [facility] AST [Catalytic activity/Vol] 16 U/L 10-42 [facility] Bilirubin Ql (U) 0.7 mg/dL 0.3-1.2 [facility] Bilirubin.direct [Mass/Vol] mg/dL 0.0-0.4 [facility] Bilirubin.indirect (Body fld) [Mass/Vol] TNP [facility] Comment on above: Test not performed WHEN BILD IS <0.1,IBIL IS NOT ABLE TO BE CALCULATED. Cholesterol [Mass/Vol] 183 mg/dL 140-200 [facility] Comment on above: CHOL less than 200 m g/dL Low risk CHOL 201-239 mg/dL Borderline risk CHOL 240 mg/dL and greater High risk Cholesterol [Mass/Vol] 22 mg/dL [facility] Cholesterol in HDL [Mass/Vol] 39 mg/dL 35-85 [facility] Comment on above: HDL CHOL ATP-III CLA SSIFICATION Cardiovascular Risk HDL > or equal to 60 mg/dL Low HDL < 40 mg/dL High Cholesterol.total/Ch olesterol in HDL [Mass ratio] 4.7 {ratio} [facility] Globulin (S) [Mass/Vol] 4.0 g/dL [facility] LDL Cholesterol, Calculated 122 mg/dL High 0-100 [facility] Comment on above: LDL ATP III CLASSIFI CATION LDL less than 100 mg/dL Optimal LDL 100-129 mg/dL Near or above optimal LDL 130-159 mg/dL Borderline high LDL 160-189 mg/dL High LDL greater than 189 mg/dL Very high Protein [Mass/Vol] 7.8 g/dL 6.1-7.9 [facility] Triglyceride [Mass/Vol] 111 mg/dL 35-149 [facility] Comment on above: TRIG ATP III CLASSIF ICATION TRIG less than 150 mg/dL Normal TRIG 150-199 mg/dL Borderline high TRIG 200-500 mg/dL High TRIG greater than 500 mg/dL Very high Standard traceable to the Center for Disease Conrtrol and Prevention (CDC) test method. TSH Qn 4.93 uIU/mL 0.45-5.33 [facility] Comment on above: Revised TSH Assay This assay is standardized to the World Health Organization International Standard for human TSH. Please note Reference Intervals have changed. Amphetamines Ql (U) Negative [facility] Appearance (U) Sl cloudy Abnormal [facility] Bacteria LM.HPF (Urine sed) [#/Area] 1+ High [facility] Benzodiazepines Ql (U) Negative [facility] Beta HCG ( test) Ql (U) Negative [facility] Bilirubin Ql (U) Negative [facility] Cocaine Ql (U) Negative [facility] Color (U) Yellow [facility] Epithelial cells.squamous LM.HPF (Urine sed) [#/Area] 10-hpf [facility] Glucose (U) [Mass/Vol] Normal mg/dL [facility] Ketones Ql (U) Negative [facility] Leukocyte esterase Test strip Ql (U) Negative [facility] Mucus Ql (Urine sed) 1+ [facility] Nitrite Ql (U) Negative [facility] Opiates Ql (U) Negative [facility] pH (U) 6.0 [pH] 5.0-9.0 [facility] Phencyclidine Ql (U) Negative [facility] Protein Ql (U) 30 mg/dL [facility] RBC (U) [#/Vol] None seen /hpf [facility] Specific gravity (U) [Rel density] 1.028 1.001-1.030 [facility] Comment on above: RECHECKED BY REFRACT OMETER Urine Barbiturates Screen Negative [facility] Urine Collection Type Type [facility] Comment on above: VOIDED Urine Drug Screen Comment See comment [facility] Comment on above: THESE ARE UNCONFIRME D RESULTS AND SHOULD NOT BE USED FOR LEGAL PURPOSES. DRUG CUT-OFF CONCENTRATION: AMPH 1000 ng/mL CHRISSY 200 ng/mL RUKHSANA 200 ng/mL COCM 300 ng/mL OP 300 ng/mL PCP 25 ng/mL THC 20 ng/mL Urine Marijuana (THC) Screen Negative [facility] Urine Occult Blood Negative [facility] Urobilinogen Qn (U) Normal mg/dL [facility] WBC (U) [#/Vol] 5-9 /hpf [facility] Anisocytosis Ql (Bld) Slight [facility] Basophils (Bld) [#/Vol] 0.1 10*3/uL 0.0-0.2 [facility] Basophils/100 WBC (Bld) 0.8 % [facility] Blood Smear Pathologist Review Impression [facility] Comment on above: Review of the [facility] eral blood smear and CBC from 08/17/2016 in a 21-year-old female reveals an increased amount of red blood cells with microcytosis. Red blood cells show anisocytosis with polychromasia. Stomatocytes are also present. Neutrophils, mon Reviewed by Dr Ashely Cooper M.D. on 08/19/16. Calcium [Mass/Vol] 9.5 mg/dL 8.2-10.2 [facility] Chloride [Moles/Vol] 106 mmol/L 95-114 [facility] CO2 [Moles/Vol] 26.2 mmol/L 22.0-30.0 [facility] Creatinine [Mass/Vol] 0.70 mg/dL 0.44-1.03 [facility] Eosinophils (Bld) [#/Vol] 0.20 10*3/uL 0.0-0.45 [facility] Eosinophils/100 WBC (Bld) 1.9 % [facility] Erythrocyte distribution width (RBC) [Ratio] 15.9 % High 11.9-15.3 [facility] Estimated GFR (Non- > 60 [facility] Ethyl Alcohol Level < 5 mg/dL [facility] GFR/1.73 sq M.predicted MDRD (S/P/Bld) [Vol rate/Area] mL/min/{1.73_m2} [facility] Comment on above: GFR estimated refere nce range: According to KDOQI guidelines, <60 ml/min/1.73m2 is sufficient to diagnose a patient with chronic kidney disease. Glucose [Mass/Vol] 114 mg/dL High 70-100 [facility] Comment on above: ADA RECOMMENDED REFE RENCE RANGE Hematocrit (Bld) [Volume fraction] 38.7 % 34.0-46.4 [facility] Hemoglobin (Bld) [Mass/Vol] 12.6 g/dL 11.8-15.4 [facility] Lymphocytes (Bld) [#/Vol] 3.0 10*3/uL 1.00-4.8 [facility] Lymphocytes/100 WBC (Bld) 32.5 % [facility] MCH (RBC) [Entitic mass] 24.3 pg Low 24.7-34.3 [facility] MCHC (RBC) [Mass/Vol] 32.6 g/dL 32.0-35.0 [facility] MCV (RBC) [Entitic vol] 74.4 fL Low 80-100 [facility] Microcytosis Moderate [facility] Monocytes (Bld) [#/Vol] 0.7 10*3/uL 0.0-0.8 [facility] Monocytes/100 WBC (Bld) 7.7 % [facility] Neutrophils (Bld) [#/Vol] 5.3 10*3/uL 1.8-7.7 [facility] Neutrophils/100 WBC (Bld) 57.1 % [facility] Percent Ethyl Alcohol < 0.005 % [facility] Platelet mean volume (Bld) [Entitic vol] 9.3 fL 6.3-10.7 [facility] Platelet Morphology Comment Normal [facility] Platelets (Bld) [#/Vol] Normal [facility] Platelets (Bld) [#/Vol] 309 10*3/uL 150-450 [facility] Polychromasia Slight [facility] Potassium [Moles/Vol] 3.9 mmol/L 3.5-5.1 [facility] RBC (Bld) [#/Vol] 5.21 10*6/uL High 3.60-5.00 [facility] Sodium [Moles/Vol] 140 mmol/L 136-146 [facility] Stomatocytes Slight [facility] Urea nitrogen [Mass/Vol] 9 mg/dL 9-23 [facility] WBC (Bld) [#/Vol] 9.2 10*3/uL 3.8-11.6 [facility] Vital Signs Date Time Vital Sign Value Performing Clinician Facility 09-02-2023 09:14-0400 Blood Pressure Location [facility] 09-02-2023 09:14-0400 Body temperature 98.6 [degF] [facility] 09-02-2023 09:14-0400 Diastolic blood pressure 78 mm[Hg] [facility] 09-02-2023 09:14-0400 Heart rate 73 /min [facility] 09-02-2023 09:14-0400 Respiratory rate 20 /min [facility] 09-02-2023 09:14-0400 SaO2% (BldA) [Mass fraction] 98 % [facility] 09-02-2023 09:14-0400 Systolic blood pressure 118 mm[Hg] [facility] 06-16-2023 13:23-0400 Body height 167.64 cm Juanita Mandydorf PA-C Work Phone: [facility] Work Phone: 06-16-2023 13:23-0400 Body mass index (BMI) [Ratio] 45.2 kg/m2 Juanita Galvandorf PA-C Work Phone: [facility] Work Phone: 06-16-2023 13:23-0400 Body surface area Derived from formula 2.3 m2 Juanita Galvandorf PA-C Work Phone: [facility] Work Phone: 06-16-2023 13:23-0400 Body temperature 98 [degF] Juanita Galvandorf PA-C Work Phone: [facility] Work Phone: 06-16-2023 13:23-0400 Body weight 127.01 kg Juanita Galvandorf PA-C Work Phone: [facility] Work Phone: 06-16-2023 13:23-0400 Diastolic blood pressure 73 mm[Hg] Juanita Galvandorf PA-C Work Phone: [facility] Work Phone: 06-16-2023 13:23-0400 Heart rate 91 /min Juanita Galvandorf PA-C Work Phone: [facility] Work Phone: 06-16-2023 13:23-0400 Heart Rate Rhythm 1 1 Juanita Lewis PA-C Work Phone: [facility] Work Phone: 06-16-2023 13:23-0400 Inhaled oxygen concentration 21 % Juanita Lewis PA-C Work Phone: [facility] Work Phone: 06-16-2023 13:23-0400 Inhaled oxygen flow rate 0 L/min Juanita Lewis PA-C Work Phone: [facility] Work Phone: 06-16-2023 13:23-0400 SaO2% (BldA) [Mass fraction] 98 % Juanita Lewis PA-C Work Phone: [facility] Work Phone: 06-16-2023 13:23-0400 Systolic blood pressure 107 mm[Hg] Juanita MORALES-C Work Phone: [facility] Work Phone: 04-30-2023 19:44-0400 Body height 165.1 cm Kirsten Jamia 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 Work Phone: [employer] 04-30-2023 19:44-0400 Body mass index (BMI) [Ratio] 47.26 kg/m2 Kirsten Jamia 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 Work Phone: [employer] 04-30-2023 19:44-0400 Body temperature 98.4 [degF] Kirsten Jamia 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 Work Phone: [employer] 04-30-2023 19:44-0400 Body weight 128.82 kg Kirsten Carrollton 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 Work Phone: [employer] 04-30-2023 19:44-0400 Diastolic blood pressure 61 mm[Hg] Kirsten [place]ton 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 Work Phone: [employer] 04-30-2023 19:44-0400 Heart rate 92 /min Kirsten Blandon 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 Work Phone: [employer] 04-30-2023 19:44-0400 Respiratory rate 14 /min Kirsten Blandon 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 Work Phone: [employer] 04-30-2023 19:44-0400 SaO2% (BldA) [Mass fraction] 100 % Kirsten Blandon 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 Work Phone: [employer] 04-30-2023 19:44-0400 Systolic blood pressure 126 mm[Hg] Kirsten Blandon 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 Work Phone: [employer] 04-23-2023 10:53-0500 Body height 167.64 cm Juanita [employer] PA-C Work Phone: [facility] Work Phone: 04-23-2023 10:53-0500 Body mass index (BMI) [Ratio] 45.3 kg/m2 Juanita MandyWire[employer] Work Phone: [facility] Work Phone: 04-23-2023 10:53-0500 Body surface area Derived from formula 2.3 m2 Thucy-C Work Phone: [facility] Work Phone: 04-23-2023 10:53-0500 Body temperature 97.5 [degF] [employer] Work Phone: [facility] Work Phone: 04-23-2023 10:53-0500 Body weight 127.19 kg [employer] PA-C Work Phone: [facility] Work Phone: 04-23-2023 10:53-0500 Diastolic blood pressure 61 mm[Hg] Juanita Guanrf PA-C Work Phone: [facility] Work Phone: 04-23-2023 10:53-0500 Heart Rate Rhythm 1 1 Juanita Galvandorf PA-C Work Phone: [facility] Work Phone: 04-23-2023 10:53-0500 Inhaled oxygen concentration 21 % Juanita Lewis PA-C Work Phone: [facility] Work Phone: 04-23-2023 10:53-0500 Inhaled oxygen flow rate 0 L/min Juanita Galvandorf PA-C Work Phone: [facility] Work Phone: 04-23-2023 10:53-0500 Systolic blood pressure 102 mm[Hg] Juanita Lewis PA-C Work Phone: [facility] Work Phone: 04-09-2023 09:08-0500 Body height 167.64 cm Juanita Galvandorf PA-C Work Phone: [facility] Work Phone: 04-09-2023 09:08-0500 Body mass index (BMI) [Ratio] 46 kg/m2 Juanita Lewis PA-C Work Phone: [facility] Work Phone: 04-09-2023 09:08-0500 Body surface area Derived from formula 2.3 m2 Juanita Mandydorf PA-C Work Phone: [facility] Work Phone: 04-09-2023 09:08-0500 Body temperature 97.1 [degF] Juanita Mandydorf PA-C Work Phone: [facility] Work Phone: 04-09-2023 09:08-0500 Body weight 129.37 kg Juanita Lewis PA-C Work Phone: [facility] Work Phone: 04-09-2023 09:08-0500 Diastolic blood pressure 87 mm[Hg] Juanita Lewis PA-C Work Phone: [facility] Work Phone: 04-09-2023 09:08-0500 Heart rate 93 /min Juanita Lewis PA-C Work Phone: [facility] Work Phone: 04-09-2023 09:08-0500 SaO2% (BldA) [Mass fraction] 98 % Juanita MROALES-C Work Phone: [facility] Work Phone: 04-09-2023 09:08-0500 Systolic blood pressure 126 mm[Hg] Juanita Lewis PA-C Work Phone: [facility] Work Phone: 02-26-2023 12:46-0500 Body mass index (BMI) [Ratio] 46 kg/m2 Rosalie Cox 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 Work Phone: [employer] 02-26-2023 12:46-0500 Body temperature 98.49 [degF] Rosalie Cox 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 Work Phone: [employer] 02-26-2023 12:46-0500 Body weight 129.28 kg Rosalie Cox 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 Work Phone: [employer] 02-26-2023 12:46-0500 Diastolic blood pressure 87 mm[Hg] Rosalie Cox 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 Work Phone: [employer] 02-26-2023 12:46-0500 Heart rate 75 /min Rosalie Cox APRN-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 Work Phone: [employer] 02-26-2023 12:46-0500 Respiratory rate 18 /min Rosalie Cox APRN-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 Work Phone: [employer] 02-26-2023 12:46-0500 SaO2% (BldA) [Mass fraction] 100 % Rosalie Cox APRN-JAROD Work Phone: [employer] 02-26-2023 12:46-0500 Systolic blood pressure 135 mm[Hg] Rosalie Cox APRN-JAROD Work Phone: [employer] 01-24-2023 09:30-0500 Body height 167.64 cm Carrol Culp DDS Work Phone: [facility] Work Phone: 01-24-2023 09:30-0500 Body mass index (BMI) [Ratio] 46.3 kg/m2 Carrol Culp [employer] Work Phone: [facility] Work Phone: 01-24-2023 09:30-0500 Body surface area Derived from formula 2.3 m2 Carrol Culp [employer] Work Phone: [facility] Work Phone: 01-24-2023 09:30-0500 Body temperature 97.1 [degF] Carrol Culp DDS Work Phone: [facility] Work Phone: 01-24-2023 09:30-0500 Body weight 130.18 kg Carrol Culp DDNirvaha Work Phone: [facility] Work Phone: 01-24-2023 09:30-0500 Diastolic blood pressure 91 mm[Hg] Carrol Culp DDS Work Phone: [facility] Work Phone: 01-24-2023 09:30-0500 Heart rate 84 /min Carrol Culp DDS Work Phone: [facility] Work Phone: 01-24-2023 09:30-0500 Heart Rate Rhythm 1 1 Carrol Culp DDS Work Phone: [facility] Work Phone: 01-24-2023 09:30-0500 Inhaled oxygen concentration 21 % Carrol Culp DDS Work Phone: [facility] Work Phone: 01-24-2023 09:30-0500 Inhaled oxygen flow rate 0 L/min Carrol Culp DDS Work Phone: [facility] Work Phone: 01-24-2023 09:30-0500 SaO2% (BldA) [Mass fraction] 99 % Carrol Culp DDS Work Phone: [facility] Work Phone: 01-24-2023 09:30-0500 Systolic blood pressure 126 mm[Hg] Carrol Culp DDS Work Phone: [facility] Work Phone: 11-29-2022 09:06-0400 Body height 167.64 cm Carrol Culp DDS Work Phone: [facility] Work Phone: 11-29-2022 09:06-0400 Body mass index (BMI) [Ratio] 46 kg/m2 Carrol Culp DDS Work Phone: [facility] Work Phone: 11-29-2022 09:06-0400 Body surface area Derived from formula 2.3 m2 Carrol Culp DDS Work Phone: [facility] Work Phone: 11-29-2022 09:06-0400 Body temperature 97.4 [degF] Carrol Culp DDS Work Phone: [facility] Work Phone: 11-29-2022 09:06-0400 Body weight 129.37 kg Carrol Culp DDS Work Phone: [facility] Work Phone: 11-29-2022 09:06-0400 Diastolic blood pressure 66 mm[Hg] Carrol Culp DDS Work Phone: [facility] Work Phone: 11-29-2022 09:06-0400 Heart rate 77 /min Carrol Culp DDS Work Phone: [facility] Work Phone: 11-29-2022 09:06-0400 SaO2% (BldA) [Mass fraction] 99 % Carrol Culp DDS Work Phone: [facility] Work Phone: 11-29-2022 09:06-0400 Systolic blood pressure 130 mm[Hg] Carrol Culp DDS Work Phone: [facility] Work Phone: 11-05-2022 09:55-0400 Body height 167.64 cm Juanita Lewis PA-C Work Phone: [facility] Work Phone: 11-05-2022 09:55-0400 Body mass index (BMI) [Ratio] 46.5 kg/m2 Juanita Galvandorf PA-C Work Phone: [facility] Work Phone: 11-05-2022 09:55-0400 Body surface area Derived from formula 2.3 m2 Juanita Galvandorf PA-C Work Phone: [facility] Work Phone: 11-05-2022 09:55-0400 Body temperature 96.9 [degF] Juanita Lewis PA-C Work Phone: [facility] Work Phone: 11-05-2022 09:55-0400 Body weight 130.55 kg Juanita Galvandorf PA-C Work Phone: [facility] Work Phone: 11-05-2022 09:55-0400 Diastolic blood pressure 62 mm[Hg] Juanita Lewis PA-C Work Phone: [facility] Work Phone: 11-05-2022 09:55-0400 Heart rate 85 /min Juanita Galvandorf PA-C Work Phone: [facility] Work Phone: 11-05-2022 09:55-0400 SaO2% (BldA) [Mass fraction] 95 % Juanita Galvandomaico PA-C Work Phone: [facility] Work Phone: 11-05-2022 09:55-0400 Systolic blood pressure 118 mm[Hg] Juanita Galvandorf PA-C Work Phone: [facility] Work Phone: 10-30-2022 23:07-0400 Body height 167.6 cm Georgiana Larsen MD Work Phone: [employer] 10-30-2022 23:07-0400 Body mass index (BMI) [Ratio] 47.45 kg/m2 Georgiana Larsen MD Work Phone: [facility] 10-30-2022 23:07-0400 Body temperature 98.2 [degF] Georgiana Larsen MD Work Phone: [facility] 10-30-2022 23:07-0400 Body weight 133.36 kg Georigana Larsen MD Work Phone: [facility] 10-30-2022 23:07-0400 Diastolic blood pressure 90 mm[Hg] Georgiana Larsen MD Work Phone: [facility] 10-30-2022 23:07-0400 Heart rate 76 /min Georgiana Larsen MD Work Phone: [facility] 10-30-2022 23:07-0400 Respiratory rate 16 /min Georgiana Larsen MD Work Phone: [facility] 10-30-2022 23:07-0400 SaO2% (BldA) [Mass fraction] 100 % Georgiana Larsen MD Work Phone: [facility] 10-30-2022 23:07-0400 Systolic blood pressure 127 mm[Hg] Georgiana Larsen MD Work Phone: [facility] 10-17-2022 08:56-0400 Body height [facility] [facility] [facility] Work Phone: [facility] Work Phone: 10-17-2022 08:56-0400 Body mass index (BMI) [Ratio] 47.2 kg/m2 [facility] Work Phone: [facility] Work Phone: 10-17-2022 08:56-0400 Body surface area Derived from formula 2.4 m2 Juanita Hattendorf PA-C Work Phone: [facility] Work Phone: 10-17-2022 08:56-0400 Body temperature 98.3 [degF] Juanita Barbaratendorf PA-C Work Phone: [facility] Work Phone: 10-17-2022 08:56-0400 Body weight 132.63 kg Juanita Hattendorf PA-C Work Phone: [facility] [facility] Work Phone: 10-17-2022 08:56-0400 Diastolic blood pressure 60 mm[Hg] Juanita Barbaratendorf PA-C Work Phone: [facility] Work Phone: 10-17-2022 08:56-0400 Heart rate 88 /min Juanita Mandydorf PA-C Work Phone: [facility] Work Phone: 10-17-2022 08:56-0400 Heart Rate Rhythm 1 1 Juanita Barbaratendorf PA-C Work Phone: [facility] Work Phone: 10-17-2022 08:56-0400 Inhaled oxygen concentration 21 % Juanita Hattendorf PA-C Work Phone: [facility] Work Phone: 10-17-2022 08:56-0400 Inhaled oxygen flow rate 0 L/min Juanita Hattendorf PA-C Work Phone: [facility] Work Phone: 10-17-2022 08:56-0400 Respiratory rate 22 /min Juanita Hattendorf PA-C Work Phone: [facility] Work Phone: 10-17-2022 08:56-0400 SaO2% (BldA) [Mass fraction] 98 % Juanita Lewis PA-C Work Phone: [facility] Work Phone: 10-17-2022 08:56-0400 Systolic blood pressure 106 mm[Hg] Juanita Lewis PA-C Work Phone: [facility] Work Phone: 10-09-2022 10:03-0400 Body height 167.64 cm Juanita Lewis PA-C Work Phone: [facility] Work Phone: 10-09-2022 10:03-0400 Body mass index (BMI) [Ratio] 47.5 kg/m2 Juanita Lewis PA-C Work Phone: [facility] Work Phone: 10-09-2022 10:03-0400 Body surface area Derived from formula 2.4 m2 Juanita Galvandorf PA-C Work Phone: [facility] Work Phone: 10-09-2022 10:03-0400 Body temperature 98.4 [degF] Juanita Galvandorf PA-C Work Phone: [facility] Work Phone: 10-09-2022 10:03-0400 Body weight 133.36 kg Juanita Lewis PA-C Work Phone: [facility] Work Phone: 10-09-2022 10:03-0400 Diastolic blood pressure 72 mm[Hg] Juanita Lewis PA-C Work Phone: [facility] Work Phone: 10-09-2022 10:03-0400 Heart rate 81 /min Juanita Lewis PA-C Work Phone: [facility] Work Phone: 10-09-2022 10:03-0400 SaO2% (BldA) [Mass fraction] 98 % Juanita Galvandomaico PA-C Work Phone: [facility] Work Phone: 10-09-2022 10:03-0400 Systolic blood pressure 122 mm[Hg] Juanita Lewis PA-C Work Phone: [facility] Work Phone: 09-18-2022 09:57-0400 Body height 167.64 cm Juanita Lewis PA-C Work Phone: [facility] Work Phone: 09-18-2022 09:57-0400 Body mass index (BMI) [Ratio] 47.5 kg/m2 Juanita Lewis PA-C Work Phone: [facility] Work Phone: 09-18-2022 09:57-0400 Body surface area Derived from formula 2.4 m2 Juanita Guanrf PA-C Work Phone: [facility] Work Phone: 09-18-2022 09:57-0400 Body temperature 97.6 [degF] Juanita Lewis PA-C Work Phone: [facility] Work Phone: 09-18-2022 09:57-0400 Body weight 133.36 kg Juanita Galvandomaico PA-C Work Phone: [facility] Work Phone: 09-18-2022 09:57-0400 Diastolic blood pressure 66 mm[Hg] Juanita Guanrf PA-C Work Phone: [facility] Work Phone: 09-18-2022 09:57-0400 Heart rate 77 /min Juanita Lewis PA-C Work Phone: [facility] Work Phone: 09-18-2022 09:57-0400 SaO2% (BldA) [Mass fraction] 98 % Juanita Lewis PA-C Work Phone: [facility] Work Phone: 09-18-2022 09:57-0400 Systolic blood pressure 124 mm[Hg] Juanita Lewis PA-C Work Phone: [facility] Work Phone: 05-27-2022 14:51-0400 Body height 167.64 cm Juanita Lewis PA-C Work Phone: [facility] Work Phone: 05-27-2022 14:51-0400 Body mass index (BMI) [Ratio] 47.5 kg/m2 Juanita Lewis PA-C Work Phone: [facility] Work Phone: 05-27-2022 14:51-0400 Body surface area Derived from formula 2.4 m2 Juanita Galvandorf PA-C Work Phone: [facility] Work Phone: 05-27-2022 14:51-0400 Body temperature 98.4 [degF] Juanita Galvandorf PA-C Work Phone: [facility] Work Phone: 05-27-2022 14:51-0400 Body weight 133.63 kg Juanita Galvandorf PA-C Work Phone: [facility] Work Phone: 05-27-2022 14:51-0400 Diastolic blood pressure 70 mm[Hg] Juanita Lewis PA-C Work Phone: [facility] Work Phone: 05-27-2022 14:51-0400 Heart rate 82 /min Juanita Lewis PA-C Work Phone: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 PPSV23) Pneumococcal 0-64 years Vaccine (1 of 1 - PPSV23) [place] Start: 08-03-2003 Pneumococcal 0-64 ye ars Vaccine (1 of 2 - PPSV23) Pneumococcal 0-64 years Vaccine (1 of 2 - PPSV23) [facility] Start: 2002 COVID-19 Vaccine (1) COVID-19 Vaccin e (1) [facility] Start: 1998 Varicella vaccine (1 of 2 - 2-dose childhood series) [facility] Start: 1997 Hepatitis B vaccine (1 of 3 - 3-dose series) Hepatitis B vaccine (1 of 3 - 3-dose series) [facility] Start: 1997 Hepatitis C screening Hepatitis C sc reen [facility] Start: 1997 Tobacco Counseling Tobacco Counselin g [facility] Atopobium vaginae DN A [Presence] in Vaginal fluid by ASHELY with probe detection [facility] Work Phone: Bacterial vaginosis associated bacterium 2 DNA [Presence] in Vaginal fluid by ASHELY with probe detection [facility] [employer] Work Phone: End: 04-23-2020 C.trachomatis N.gonorrhoeae DNA C.trachomatis N.gonorrhoeae DNA Microbiology Routine One Time for 1 Occurrences starting 04/23/2020 until 04/23/2020 [employer] Work Phone: Comment on above: One Time for 1 Occur rences starting 04/23/2020 until 04/23/2020 C.trachomatis N.gonorrhoeae DNA C.trachomatis N.gonorrhoeae DNA Microbiology Stat [employer] Label print 04/23/2020 3:06 AM EST [employer] Work Phone: CBC W Auto Different ial panel - Blood CBC with DIFF Lab Stat [employer] Label print 09/02/2020 2:45 AM EDT [employer] Work Phone: CT ABDOMEN PELVIS W IV CONTRAST Additional Contrast? None CT ABDOMEN PELVIS W IV CONTRAST Additional Contrast? None Imaging STAT 08/09/2019 1:02 AM EDT As Seen on TV [place] End: 08-08-2019 Culture, Urine Culture, Urine Microbiology Routine Once for 1 Occurrences starting 08/08/2019 until 08/08/2019 [facility] [employer] [place] Comment on above: Once for 1 Occurrenc es starting 08/08/2019 until 08/08/2019 Culture, Urine Culture, Urine Microbiology Routine 08/08/2019 11:06 PM EDT As Seen on TV [place] End: 06-19-2021 Culture, Urine [employer] Work Phone: Comment on above: Once for 1 Occurrenc es starting 06/19/2021 until 06/19/2021 EKG 12 Lead EKG 12 Lead ECG STAT 08/08/2019 10:47 PM EDT [place] End: 10-17-2022 Factor 5 Leiden [facility] [employer] Work Phone: Comment on above: Once for 1 Occurrenc es starting 10/17/2022 until 10/17/2022 Megasphaera sp type 1 DNA [Presence] in Vaginal fluid by ASHELY with probe detection [facility] Work Phone: End: 11-28-2019 PREVIOUS SPECIMEN PREVIOUS SPECIMEN Lab STAT Once for 1 Occurrences starting 11/28/2019 until 11/28/2019 [facility], [place] Comment on above: Once for 1 Occurrenc es starting 11/28/2019 until 11/28/2019 PREVIOUS SPECIMEN [facility] [place] End: 09-08-2020 PREVIOUS SPECIMEN PREVIOUS SPECIMEN Lab Routine Once for 1 Occurrences starting 09/08/2020 until 09/08/2020 [facility] Work Phone: Comment on above: Once for 1 Occurrenc es starting 09/08/2020 until 09/08/2020 End: 10-18-2022 Strep A DNA probe, amplification [facility] Work Phone: Comment on above: Once for 1 Occurrenc es starting 10/18/2022 until 10/18/2022 Urine culture Urine Culture [facility] Immunizations Immunization Date Immunization Notes Care Provider Madai darby 11-29-2022 influenza virus vaccine, unspecified formulation Flakito Armendariz [facility] 11-29-2022 influenza, injectabl e, quadrivalent, preservative free; Translations: [Fluarix] Carrol Culp SigndatHarjinder Work Phone: [facility] Comment on above: Note: Patient tolera arianna well. No signs or symptoms of adverse reactions. Patient waited a minimum of 15 minutes. 11-29-2022 Imm.Admin. over 18 y rs Any Route FIRST Injection (Physician Servicing Manager) Carrol Culp DDS Work Phone: [facility] 10-09-2021 1st Dose MODERNA COVID-19 Vaccine Juanita Lewis PA-C Work Phone: [facility] 11-04-2020 1st Dose MODERNA COVID-19 Vaccine Juanita Lewis PA-C Work Phone: [facility] 11-04-2020 COVID-19, [place] Vaccine , Vaccine Unspecified Nicole Rocha MD Work Phone: [facility] 12-19-2017 influenza virus vaccine, unspecified formulation [facility] 12-19-2017 Influenza, injectabl e, Madin [place] Canine Kidney, preservative free, quadrivalent Nicole Rocha MD Work Phone: [facility] Work Phone: 12-01-2017 Influenza Vaccine, unspecified formulation Son [place]h [place] 12-01-2017 influenza virus vaccine, unspecified formulation [facility] 12-01-2017 influenza, injectabl e, quadrivalent, preservative free Nicole Rocha MD Work Phone: [facility] Work Phone: 11-01-2017 tetanus toxoid, reduced diphtheria toxoid, and acellular pertussis vaccine, adsorbed [facility] 01-03-2017 influenza virus vaccine, unspecified formulation [facility] 01-03-2017 Influenza, injectabl e, Madin [place] Canine Kidney, preservative free, quadrivalent Nicole Rocha MD Work Phone: [facility] Work Phone: Payers Date Payer Category Payer Medicaid [facility] MEDICAID [facility] MEDICAID [id number] 2022-Present [address] [place] [address] [id number] 2022 Unknown 2018 Unknown [id number] [id number]. [id number] 2017 Unknown [facility] xxxxxxxxxxx 2017-Present [phone] CLAIMS DEPARTMENT [address] [place] [address] xxxxxxxxxxx [id number]. [id number] 2017 Unknown [id number] 2017 Unknown [id number] 2014 Unknown [id number] 2.16.840.1.697435.3.140.1. 86990.5.10.6.3 2014 Unknown [id number] 2.16.840.1.197230.3.140.1. 12464.5.10.6.3 1997 Unknown [id number] 2.16.840.1.808279.3.579.2. 593 1997 Unknown [id number] 2.16.840.1.419574.3.579.2. 174 1997 Unknown [id number] 2.16.840.1.022656.3.579.2. 174 1997 Unknown [id number] 2.16.840.1.045200.3.579.2. 647 1997 Unknown [id number] 2.16.840.1.273659.3.579.2. 647 1997 Unknown [id number] 2.16.840.1.606679.3.579.2. 647 1997 Unknown [id number] 2.16.840.1.133380.3.579.2. 647 1997 Unknown [id number] 2.16.840.1.221625.3.579.2. 647 1997 Unknown [id number] 2.16.840.1.139043.3.579.2. 196 1997 Unknown [id number] 2.16.840.1.283546.3.579.2. 175 1997 Unknown [id number] 2.16.840.1.616579.3.579.2. 175 1997 Unknown [id number] 2.16.840.1.527242.3.579.2. 175 1997 Unknown [id number] 2.16.840.1.200688.3.579.2. 175 1997 Unknown [id number] 2.16.840.1.822472.3.579.2. 175 1997 Unknown [id number] 2.16.840.1.538336.3.579.2. 175 1997 Unknown [id number] 2.16.840.1.737096.3.579.2. 175 1997 Unknown [id number] 2.16.840.1.364522.3.579.2. 175 1997 Unknown [id number] 2.16.840.1.802974.3.579.2. 1286 1997 Unknown [id number] 2.16.840.1.621559.3.579.2. 1286 1997 Unknown [id number] 2.16.840.1.891899.3.579.2. 1286 1997 Unknown [id number] 2.16.840.1.285192.3.579.2. 176 1997 Unknown [id number] 2.16.840.1.457301.3.579.2. 176 1997 Unknown [id number] 2.16.840.1.385320.3.579.2. 727 1997 Unknown [id number] 2.16.840.1.962685.3.579.2. 727 1997 Unknown [id number] 2.16.840.1.320366.3.579.2. 727 1997 Unknown [id number] 2.16.840.1.025301.3.579.2. 727 1997 Unknown [id number] 2.16.840.1.112662.3.579.2. 727 1959 Self-pay [id number] Medicaid [id number] Medicaid [id number] Private Health Insurance [id number] Self-pay Unknown [id number] Social History Date Type Detail Facility Start: 08-03-2019 End: 01-06-2023 Tobacco smoking status MIIS Current every day smoker [facility] History of tobacco use Cigarette Smoker [place] Start: 08-03-2019 End: 03-30-2020 Cigarettes smoked current (pack per day) - Reported [place] Start: 08-03-2019 End: 12-01-2019 Alcohol intake Current non-drinker of alcohol (finding) [place] Start: 1997 Sex Assigned At Not on file [place] Exposure to SARS-CoV-2 (event) Unable to assess [place] Start: 11-28-2019 End: 01-06-2023 Tobacco use and exposure Never used [place] Start: 04-27-2021 End: 12-24-2021 Exposure to SARS-CoV-2 (event) Not sure [place] Start: 04-23-2020 End: 09-02-2023 Tobacco smoking status NHIS Former smoker [facility] [employer] Start: 04-23-2020 End: 04-30-2023 Alcohol intake Current drinker of alcohol (finding) [employer] Phone: Start: 04-23-2020 End: 11-08-2021 Tobacco Comment Stopped @/02/2020 [employer] Phone: Start: 04-23-2020 Alcohol Comment social [employer] Work Phone: Start: 05-07-2021 End: 04-04-2022 History SDOH Financial 5 [employer] Phone: Start: 05-07-2021 End: 04-04-2022 History SDOH Food Worry 1 [employer] Phone: Start: 05-19-2020 Tobacco smoking status NHIS Smoker (finding) [facility] Start: 03-30-2020 End: 09-06-2022 History of tobacco use [facility] Work Phone: Start: 1995 Sex Assigned At Female F [facility] Start: 12-23-2021 Tobacco smoking status NHIS Occasional tobacco smoker [employer] [facility] Assertion [facility] Assertion Lives with hector nion (finding) [facility] Assertion Full-time employ ment (finding) [facility] Assertion Social drinker (finding) [facility] Sexually active (finding) [facility] Assertion Gender identity finding (finding) [facility] Assertion Finding of sexua l orientation (finding) [facility] Tobacco smoking status Unknown if ever smoked [facility] Work Phone: Start: 04-04-2022 History SDOH Transport Non-Med 2 [facility] Work Phone: Assertion Exposure to poll ution (event) [facility] (I/We) worried whether (my/our) food would run out before (I/we) got money to buy more. Never true [facility] At any time in the past 12 months, were you homeless or living in senior living [including now]? No [facility] Assertion Lives alone (finding) [facility] History of tobacco use Tobacco Use Types Packs/Day Years Used Date Smoking Tobacco: Every Day Vaping/E-cigarettes Smokeless Tobacco: Never [facility] Start: 02-19-2022 Tobacco Comment refused counseling [facility] Start: 01-10-2020 Alcohol Comment Occassionally [facility] NEGATED: Highlighted row Assertion Contraception (finding) [facility] NEGATED: Highlighted row Assertion [facility] NEGATED: Highlighted row Assertion Misuses drugs (finding) [facility] NEGATED: Highlighted row Assertion Current drinker of alcohol (finding) [facility] NEGATED: Highlighted row Assertion Exposure to pollution (event) [facility] NEGATED: Highlighted row Assertion Finding relating to drug misuse behavior (finding) [facility] NEGATED: Highlighted row Assertion Sexually active (finding) [facility] Procedure Code Equipment Code Equipment Origin al Text Equipment Identifier Dates OneTouch Ultra I n Vitro Strip [id number] Start: 09-18-2022 End: 12-06-2022 OneTouch UltraSo ft 2 Lancets Miscellaneous [id number] Start: 09-18-2022 End: 04-09-2023 OneTouch Ultra I n Vitro Strip [id number] Start: 12-06-2022 End: 04-09-2023 OneTouch Ultra I n Vitro Strip [id number] Start: 04-09-2023 OneTouch UltraSo ft 2 Lancets Miscellaneous [id number] Start: 04-09-2023 1 strip by other route as needed for high blood sugar. [id number] Start: 07-02-2021 Functional Status Date Assessment Result Facility 09-02-2023 Functional Status N/A [facility] Mental Status Date Assessment Result Facility Cognitive function Oriented to t teresa, place, and person Oriented to person, time and place (finding) [facility] Work Phone: Clinical Notes 08-24-2020 to 10-30-2023 Note Date & Type Note Facility 10-30-2023 Note Patient Education Orthopedics Knee Rehabilitation in the Home After knee surgery, it is important to follow instructions from your health care provider about rehabilitation or rehab. It is important to design a program that is safe and effective for you. Your health care provider and rehabilitation therapist will work with you to meet your specific abilities and needs. What are the benefits? Knee rehab can help: ? Strengthen your knee. ? Improve the flexibility and movement (range of motion) of your knee joint. ? Reduce swelling. ? Improve blood flow and prevent blood clots. How to do exercises at home Continue exercises at home that your health care provider or physical therapist instructed you to do in the hospital. Do not exercise in a pool until your incision has healed and your health care provider says that you can. Pool exercise is also called aquatic therapy. Before you exercise ? Take pain medicines, if told by your health care provider. Do not take the medicine if it makes you feel dizzy or sleepy. ? Do a warm-up activity, such as gentle walking or riding a stationary bike, as told by your health care provider. This warms up your muscles and helps to prevent injury. While doing exercises ? When standing, make sure you are near something sturdy that you can hold onto for balance, such as a heavy chair or the wall. ? Do exercises exactly as told by your health care provider and adjust them as directed. ? As you are recovering, choose an exercise pace that is comfortable for you, and gradually work up to your goal. ? Do not use a lot of force to bend your knee. Bend it gently. Increase activity as your knee heals. Follow these instructions at home: Activity ? Rest as told by your health care provider. ? Avoid sitting for a long time without moving. Get up to take short walks every 1?2 hours. This is important to improve blood flow and breathing. Ask for help if you feel weak or unsteady. ? Do not lift anything that is heavier than 10 lb (4.5 kg), or the limit that you are told, until your health care provider says that it is safe. ? Do not use your knee to support your body weight until your health care provider says that you can. Use crutches or a walker as told by your health care provider. ? Do not twist or kneel on your injured knee. ? Return to your normal activities as told by your health care provider. Ask your health care provider what activities are safe for you. Managing pain, stiffness, and swelling ? Put ice on affected areas after you exercise, or as needed. Icing can help to relieve joint pain and swelling. To do this: ? Put ice in a plastic bag or use the icing device (cold flow pad or cold therapy unit) that you were given. Follow instructions from your health care provider about how to use the icing device. ? Place a towel between your skin and the bag or device. ? Leave the ice on for 20 minutes, 2?3 times a day. ? If directed, apply heat to affected areas before you exercise, or as needed. Heat can reduce the stiffness of your muscles and joints. Use the heat source that your health care provider recommends, such as a moist heat pack or a heating pad. To do this: ? Place a towel between your skin and the heat source. ? Leave the heat on for 20?30 minutes. ? Remove the heat if your skin turns bright red. This is especially important if you are unable to feel pain, heat, or cold. You may have a greater risk of getting burned. ? Wear compression stockings as told by your health care provider. These stockings help to prevent blood clots and reduce swelling in your legs. ? Raise your legs while sitting or lying down. Do not place your knee on top of pillows to elevate it. Keep your legs straight to prevent your knee from getting stuck in a bent position (contracture). Preventing falls ? Keep your home well-lit and free of clutter, especially in walkways and stairways. Keep floors dry and use non-skid mats. ? Remove tripping hazards from floors, such as throw rugs and cords. ? Install grab bars in bathrooms, and put night-lights in your bedroom and bathroom. ? Wear closed-toe shoes that fit well and support your feet. Wear shoes that have rubber soles or low heels. ? Talk with your health care provider about any lspu-lok-obosfji and prescription medicines that you are taking. Some medicines can cause dizziness or changes in blood pressure, which increase your risk of falling. General recommendations ? Teach your family about your condition and how they can help in your recovery. Include them during a physical therapy session. ? Keep all follow-up visits as told by your health care provider and physical therapist. This is important. Questions to ask your health care provider ? What exercises are safe for me to do? ? How often should I do the exercises? ? How can I manage the p (more content not included)... [facility] 09-29-2023 Note Patient Education Nutrition BMI for [...] numbers. This can be done either in [place] ([place] or metric measurements. Note that charts and online BMI calculators are available to help you find your BMI quickly and easily without having to do these calculations yourself. To calculate your BMI in [place] ([place] measurements: 1. Measure your weight in [...] for Disease Control and Prevention: www.cdc.gov ? [place] [employer]: www.heart.org ? National Heart, Lung, and Blood [place]: www.nhlbi.nih.gov Summary ? Body mass index (BMI) is a number that is calculated from a person's weight and height. ? BMI may help estimate how much of a person's weight is composed of fat. BMI can help identify those who may be at higher risk for certain medical problems. ? BMI can be measured using [place] measurements or metric measurements. ? BMI charts are used to identify whether you are underweight, normal weight, overweight, or obese. This information is not intended to replace advice given to you by your health care provider. Make sure you discuss any questions you have with your health care provider. Document Revised: 10/27/2019 Document Reviewed: 09/03/2019 [employer] Patient Education ? 2022 [employer]. [facility] 09-02-2023 Hospital Discharge instructions Patient Education 09/02/2023 09:35:20 BMI for [...] numbers. This can be done either in [place] or metric measurements. Note that charts and online BMI calculators are available to help you find your BMI quickly and easily without having to do these calculations yourself. To calculate your BMI in [place] ([place] measurements: 1.Measure your weight in pounds [...] Centers for Disease Control and Prevention: www.cdc.gov [place] [employer]: www.heart.org National Heart, Lung, and Blood [place]: www.nhlbi.nih.gov Summary Body mass index (BMI) is a number that is calculated from a person's weight and height. BMI may help estimate how much of a person's weight is composed of fat. BMI can help identify those who may be at higher risk for certain medical problems. BMI can be measured using [place] measurements or metric measurements. BMI charts are used to identify whether you are underweight, normal weight, overweight, or obese. This information is not intended to replace advice given to you by your health care provider. Make sure you discuss any questions you have with your health care provider. Document Revised: 10/27/2019 Document Reviewed: 09/03/2019 [employer] Patient Education 2022 [employer]. 09/02/2023 09:35:18 Acute Knee Pain, Adult, [id number] Acute Knee Pain, Adult Many things can [...] pillow under your knee. General instructions Take cssc-wqj-qqobwyb and prescription medicines only as told by [...] provider. Document Revised: 07/19/2020 Document Reviewed: 07/19/2020 [employer] Patient Education 2022 [employer]. [facility] 09-02-2023 Note Patient Education Nutrition [...] numbers. This can be done either in [place] or metric measurements. Note that charts and online BMI calculators are available to help you find your BMI quickly and easily without having to do these calculations yourself. To calculate your BMI in [place] ([place] measurements: 1. Measure your weight in [...] for Disease Control and Prevention: www.cdc.gov ? [place] [employer]: www.heart.org ? National Heart, Lung, and Blood [place]: www.nhlbi.nih.gov Summary ? Body mass index (BMI) is a number that is calculated from a person's weight and height. ? BMI may help estimate how much of a person's weight is composed of fat. BMI can help identify those who may be at higher risk for certain medical problems. ? BMI can be measured using [place] measurements or metric measurements. ? BMI charts are used to identify whether you are underweight, normal weight, overweight, or obese. This information is not intended to replace advice given to you by your health care provider. Make sure you discuss any questions you have with your health care provider. Document Revised: 10/27/2019 Document Reviewed: 09/03/2019 Else[employer] Patient Education ? 2022 [employer] Orthopedics Acute Knee Pain, Adult Many [...] ? If t (more content not included)... [facility] 06-17-2023 Instructions Includes: Instructions for all patient encounters Intervention and counseling on cessation of tobacco use, 3-10 minutes Discussed medication and nicotine replacement for tobacco cessation Last Documented On 4 10:17AM ; [facility] Intervention and counseling on cessation of tobacco use, 3-10 minutes Discussed medication and nicotine replacement for tobacco cessation Last Documented On 4 10:50AM ; [facility] Intervention and counseling on cessation of tobacco use, 3-10 minutes Discussed medication and nicotine replacement for tobacco cessation Last Documented On 3 8:19PM ; [facility] Education and Decision Aids were provided during visit for: Discussed nutritional needs teach healthy choices including fruits and vegetables Last Documented On 4 1:28PM ; [facility] Patient education about a pr oper diet Last Documented On 4 1:28PM ; [facility] Discussed concerns about exe rcise : promote physical activity Last Documented On 4 1:28PM ; [facility] Not requesting contraception Last Documented On 4 1:28PM ; [facility] BHP and PA discussed patient 's [...] well Last Documented On 4 12:13PM ; [facility] Discussed nutritional needs teach healthy choices including fruits and vegetables Last Documented On 4 11:01AM ; [facility] Patient education about a pr oper diet Last Documented On 4 11:01AM ; [facility] Discussed concerns about exe rcise : promote physical activity Last Documented On 4 11:01AM ; [facility] Not requesting contraception Last Documented On 4 11:01AM ; [facility] *BHP offered active and supp ortive listening, normalized [...] visit Last Documented On 4 4:46PM ; [facility] Discussed nutritional needs teach healthy choices including fruits and vegetables Last Documented On 4 9:12AM ; [facility] Patient education about a pr oper diet Last Documented On 4 9:12AM ; [facility] Discussed concerns about exe rcise : promote physical activity Last Documented On 4 9:12AM ; [facility] *BHP offered active and supp ortive listening, normalized emotions and feelings, and processed current stressors. ~*Discussed healthy coping skills and positive supports in patient's life. ~*Discussed proper sleep hygiene skills to implement to improve sleep. ~ Last Documented On 3 9:42PM ; [facility] Discussed nutritional needs teach healthy choices including fruits and vegetables Last Documented On 3 9:40AM ; [facility] Patient education about a pr oper diet Last Documented On 3 9:40AM ; [facility] Patient education about an a sthma action plan Last Documented On 3 10:31AM ; [facility] Discussed concerns about exe rcise : promote physical activity Last Documented On 3 9:40AM ; [facility] Not requesting contraception Last Documented On 3 9:40AM ; [facility] Discussed nutritional needs teach healthy choices including fruits and vegetables Last Documented On 3 9:08AM ; [facility] Patient education about a pr oper diet Last Documented On 3 9:08AM ; [facility] Discussed concerns about exe rcise : promote physical activity Last Documented On 3 9:08AM ; [facility] Discussed nutritional needs teach healthy choices including fruits and vegetables Last Documented On 3 9:57AM ; [facility] Patient education about a pr oper diet Last Documented On 3 9:57AM ; [facility] Discussed concerns about exe rcise : promote physical activity Last Documented On 3 9:57AM ; [facility] Discussed nutritional needs teach healthy choices including fruits and vegetables Last Documented On 3 9:00AM ; [facility] Patient education about a pr oper diet Last Documented On 3 9:00AM ; [facility] Discussed concerns about exe rcise : promote physical activity Last Documented On 3 9:00AM ; [facility] Not requesting contraception Last Documented On 3 9:00AM ; [facility] Discussed nutritional needs teach healthy choices including fruits and vegetables Last Documented On 3 10:07AM ; [facility] Patient education about a pr oper diet Last Documented On 3 10:07AM ; [facility] Discussed concerns about exe rcise : promote physical activity Last Documented On 3 10:07AM ; [facility] Not requesting contraception Last Documented On 3 10:07AM ; [facility] Discussed nutritional needs teach healthy choices including fruits and vegetables Last Documented On 3 10:02AM ; [facility] Patient education about a pr oper diet Last Documented On 3 10:02AM ; [facility] Discussed concerns about exe rcise : promote physical activity Last Documented On 3 10:02AM ; [facility] Discussed nutritional needs teach healthy choices including fruits and vegetables Last Documented On 3 2:56PM ; [facility] Patient education about a pr oper diet Last Documented On 3 2:56PM ; [facility] Discussed concerns about exe rcise : promote physical activity Last Documented On 3 2:56PM ; [facility] Discussed nutritional needs teach healthy choices including fruits and vegetables Last Documented On 3 2:11PM ; [facility] Patient education about a pr oper diet Last Documented On 3 2:11PM ; [facility] Discussed concerns about exe rcise : promote physical activity Last [facility] 3 2:11PM [facility] [...] free Last Documented On 3 11:35AM ; [facility] Discussed nutritional needs teach healthy choices including fruits and vegetables Last Documented On 3 10:53AM ; [facility] Patient education about a pr oper diet Last Documented On 3 10:53AM ; [facility] Discussed concerns about exe rcise : promote physical activity Last Documented On 3 10:53AM ; [facility] Work Phone: [phone]) 873-474004-29-2024 Evaluation note Includes: Assessments for all patient encounters Findings Encounter Date [Z00.00 - [facility]] visit for: routine adult H&P Open Access - Established with Jelani Harris CNP 06/16/2023 Last Documented On 4 11:29AM ; [facility] [Z68.42 - Body mass index [B MA] 45.0-49.9, adult] assessment of body mass index was 45.2 kg/m2 Open Access - Established with Jelani Harris CNP 06/16/2023 Last Documented On 4 11:29AM ; [facility] Bipolar disorder NOS Established Patient with Odalysyenifer Martinez DELIVERY TABLE OPERATOR 04/23/2023 Last Documented On 4 12:14PM ; [facility] Nicotine dependence Established Patient with Odalysyenifer Martinez DELIVERY TABLE OPERATOR 04/23/2023 Last Documented On 4 12:14PM ; [facility] [Z68.42 - Body mass index [B MA] 45.0-49.9, adult] assessment of body mass index was 45.3 kg/m2 Medical Established Patient with Juanita Hattendorf PA-C 04/23/2023 Last Documented On 4 1:33PM ; [facility] Bipolar I disorder Medical Established Patient w ith Juanita Hattendorf PA-C 04/23/2023 Last Documented On 4 1:33PM ; [facility] Classic migraine with aura w ith intractable migraine with status migrainosus Medical Established Patient with Juanita Hattendorf PA-C 04/23/2023 Last Documented On 4 1:33PM ; [facility] Nicotine dependence continuous Medical E stablished Patient with Juanita Hattendorf PA-C 04/23/2023 Last Documented On 4 1:33PM ; [facility] Bipolar I disorder Established Patient with Dixon Moran DELIVERY TABLE OPERATOR-S 04/09/2023 Last Documented On 4 4:48PM ; [facility] Intervention and counseling on cessation of tobacco use, 3-10 minutes Discussed medication and nicotine replacement for tobacco cessation Established Patient with Kristin Stone DELIVERY TABLE OPERATOR-S 04/09/2023 Last Documented On 4 4:48PM ; [facility] Nicotine dependence Established Patient with Kristin Stone DELIVERY TABLE OPERATOR-S 04/09/2023 Last Documented On 4 4:48PM ; [facility] [Z68.42 - Body mass index [B MA] 45.0-49.9, adult] assessment of body mass index Open Access - Established with Juanita Lewis PA-C 04/09/2023 Last Documented On 4 10:53AM ; [facility] Assessment of initial prescr iption of implantable subdermal contraceptive Open Access - Established with Juanita Lewis PA-C 04/09/2023 Last Documented On 4 10:53AM ; [facility] Bipolar I disorder Open Access - Established wit h Juanita Lewis PA-C 04/09/2023 Last Documented On 4 10:53AM ; [facility] Consent form on file for pro cedure :Nexplanon Open Access - Established with Juanita Lewis PA-C 04/09/2023 Last Documented On 4 10:53AM ; [facility] Intervention and counseling on cessation of tobacco use, 3-10 minutes Discussed medication and nicotine replacement for tobacco cessation Open Access - Established with Juanita Lewis PA-C 04/09/2023 Last Documented On 4 10:53AM ; [facility] Iron deficiency anemia Open Access - Est ablished with Juanita Lewis PA-C 04/09/2023 Last Documented On 4 10:53AM ; [facility] Nexplanon Implant placed Pat ient is [...] 04/09/2023 Last Documented On 4 10:53AM ; [facility] Nexplanon Implant Wound Care : Patient [...] 04/09/2023 Last Documented On 4 10:53AM ; [facility] Prediabetes Open Access - Established with Harjinder Lewis PA-C 04/09/2023 Last Documented On 4 10:53AM ; [facility] Bipolar I disorder Established Patient with Dixon MÁRQUEZW-S 01/24/2023 Last Documented On 3 9:45PM ; [facility] [G47.30 - Sleep apnea, unspe cified] organic sleep apnea Medical Established Patient with Juanita Barbaratendorf PA-C 01/24/2023 Last Documented On 3 10:48AM ; [facility] [Z68.42 - Body mass index [B MA] 45.0-49.9, adult] assessment of body mass index was 46.3 kg/m2 Medical Established Patient with Juanita Mandydorf PA-C 01/24/2023 Last Documented On 3 10:48AM ; [facility] Classic migraine with aura w ith intractable migraine with status migrainosus Medical Established Patient with Juanita Hattendorf PA-C 01/24/2023 Last Documented On 3 10:48AM ; [facility] Mild persistent asthma with exacerbation Medical Established Patient with Juanita Lewis PA-C 01/24/2023 Last Documented On 3 10:48AM ; [facility] [Z02.1 - Encounter for pre-e mployment examination] routine pre-employment screening examination Open Access - Established with Juanita Lewis PA-C 11/29/2022 Last Documented On 3 4:45PM ; [facility] [Z11.1 - Encounter for miguel angel marcus for respiratory tuberculosis] visit for: screening for pulmonary tuberculosis Open Access - Established with Juanita Lewis PA-C 11/29/2022 Last Documented On 3 4:45PM ; [facility] [Z68.42 - Body mass index [B MA] 45.0-49.9, adult] assessment of body mass index Open Access - Established with Juanita Lewis PA-C 11/29/2022 Last Documented On 3 4:45PM ; [facility] Encounter for Immunization Open Access - Established with Juanita Lewis PA-C 11/29/2022 Last Documented On 3 4:45PM ; [facility] Prediabetes Open Access - Established with Harjinder monicamarymakayla Barbaranadeemchip PA-C 11/29/2022 Last Documented On 3 4:45PM ; [facility] [Z68.42 - Body mass index [B MA] 45.0-49.9, adult] assessment of body mass index Open Access - Established with Juanita Lewis PA-C 11/05/2022 Last Documented On 3 12:38PM ; [facility] Acute serous otitis media of left ear Open Access - Established with Juanita Lewis PA-C 11/05/2022 Last Documented On 3 12:38PM ; [facility] [J02.9 - Acute pharyngitis, unspecified] acute pharyngitis Open Access - Established with Kb Pelaez CNP 10/17/2022 Last Documented On 3 12:51PM ; [facility] [J11.1 - Influenza due to un identified influenza virus with other respiratory manifestations] influenza with URI Open Access - Established with Kblydia Pelaez CNP 10/17/2022 Last Documented On 3 12:51PM ; [facility] [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) Open Access - Established with Kblydia Pelaez CNP 10/17/2022 Last Documented On 3 12:51PM ; [facility] [R35.0 - Frequency of mictur ition] urinary frequency Open Access - Established with Kblydia Pelaez CNP 10/17/2022 Last Documented On 3 12:51PM ; [facility] [Z68.42 - Body mass index [B MA] 45.0-49.9, adult] assessment of body mass index was 47.2 kg/m2 Open Access - Established with Kb Pelaez CNP 10/17/2022 Last Documented On 3 12:51PM ; [facility] Intervention and counseling on cessation of tobacco use, 3-10 minutes Discussed medication and nicotine replacement for tobacco cessation Open Access - Established with Kb Pelaez CNP 10/17/2022 Last Documented On 3 12:51PM ; [facility] Nicotine dependence Open Access - Established wi th Kb Pelaez CNP 10/17/2022 Last Documented On 3 12:51PM ; [facility] Venipuncture was performed Open Access - Established with Kb Pelaez CNP 10/17/2022 Last Documented On 3 12:51PM ; [facility] [F17.200 - Nicotine dependen ce, unspecified, uncomplicated] nicotine dependence uncomplicated Medical Established Patient with Juanita Lewis PA-C 10/09/2022 Last Documented On 3 2:42PM ; [facility] [Z68.42 - Body mass index [B MA] 45.0-49.9, adult] assessment of body mass index Medical Established Patient with Juanita Joshua PA-C 10/09/2022 Last Documented On 3 2:42PM ; [facility] Classic migraine (with aura) with intractable migraine with status migrainosus Medical Established Patient with Juanita Hattendorf PA-C 10/09/2022 Last Documented On 3 2:42PM ; [facility] Iron deficiency anemia Medical Establish ed Patient with Juanita Hattendorf PA-C 10/09/2022 Last Documented On 3 2:42PM ; [facility] Prediabetes Medical Established Patient with Juanita Hattendorf PA-C 10/09/2022 Last Documented On 3 2:42PM ; [facility] [R73.03 - Prediabetes] prediabetes Open Access - Established with Juanita Hattendorf PA-C 09/18/2022 Last Documented On 3 2:31PM ; [facility] [Z68.42 - Body mass index [B MA] 45.0-49.9, adult] assessment of body mass index Open Access - Established with Juanita Hattendorf PA-C 09/18/2022 Last Documented On 3 2:31PM ; [facility] Classic migraine (with aura) with intractable migraine with status migrainosus Open Access - Established with Juanita Hattendorf PA-C 09/18/2022 Last Documented On 3 2:31PM ; [facility] [S80.12XD - Contusion of lef t lower leg, subsequent encounter] contusion with intact skin surface of left anterior lower leg Medical Established Patient with Juanita Hattendorf PA-C 05/27/2022 Last Documented On 3 4:00PM ; [facility] [Z68.42 - Body mass index [B MA] 45.0-49.9, adult] assessment of body mass index Medical Established Patient with Juanita Hattendorf PA-C 05/27/2022 Last Documented On 3 4:00PM ; [facility] Pain in lower leg Medical Established Patient wi th Juanita Hattendorf PA-C 05/27/2022 Last Documented On 3 4:00PM ; [facility] Iron deficiency anemia Chart Update with Juanita Hattendorf PA-C 05/21/2022 Last Documented On 3 4:12PM ; [facility] [E55.9 - Vitamin D deficienc y, unspecified] vitamin D deficiency Open Access - Established with Juanita MORALES-C 05/17/2022 Last Documented On 3 3:44PM ; [facility] [Z68.42 - Body mass index [B MA] 45.0-49.9, adult] assessment of body mass index Open Access - Established with Juanita MORALES-C 05/17/2022 Last Documented On 3 3:44PM ; [facility] Iron deficiency anemia Open Access - Est ablished with Juanita Lewis PA-C 05/17/2022 Last Documented On 3 3:44PM ; [facility] Organic sleep apnea Open Access - Established wi th Juanita Lewis PA-C 05/17/2022 Last Documented On 3 3:44PM ; [facility] Primary snoring Open Access - Established with Harjinder kimanimakayla Joshua MORALES-C 05/17/2022 Last Documented On 3 3:44PM ; [facility] Bipolar I disorder Established Patient with Jammie banerjee Martinezbenjie SMITH 04/29/2022 Last Documented On 3 11:36AM ; [facility] Nicotine dependence Established Patient with Odalys Martinezbenjie SMITH 04/29/2022 Last Documented On 3 11:36AM ; [facility] [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 adult medical examination with abnormal findings] routine history and physical Open Access New Patient with Juanita Lewis PA-C 04/29/2022 Last Documented On 3 1:03PM ; [facility] [Z68.42 - Body mass index [B MA] 45.0-49.9, adult] assessment of body mass index Open Access New Patient with Juanita Lewis PA-C 04/29/2022 Last Documented On 3 1:03PM ; [facility] Diabetes Risk Test Score was five score 04/29/2022 Open Access New Patient with Juanita Lewis PA-C 04/29/2022 Last Documented On 3 1:03PM ; [facility] Recurrent pharyngitis streptococcus Open Access New Patient with Juanita Lewis PA-C 04/29/2022 Last Documented On 3 1:03PM ; [facility] Screening for Hep C Open Access New Patient with Juanita Lewis PA-C 04/29/2022 Last Documented On 3 1:03PM ; [facility] Screening for HIV Open Access New Patient with Harjinder Lewis PA-C 04/29/2022 Last Documented On 3 1:03PM ; [facility] Work Phone: 1(790) 490-873804-29-2024 Progress note* Progress note Date Encounter Last Documented by 06/16/2023 Open Access - Established Last d ocumented on 06/17/2023; 11:29 AM, Jelani Harris CNP; [facility] Active Problems & Conditions - J45.31 [...] The Chief Complaint is: Patient here for JFS form to be fllied out. Referred Here [...] days, 5 refills - Vitamin D (Ergocalciferol) 02575 UNIT Oral Capsule 0 days, 0 refills [...] BP-Sitting R107/73 mmHg BP Cuff SizeRegular Pulse Rate-Pnbogaj18 bpm Pulse RhythmRegular Temp-Wmfhnwjw48 F Ecihsb19 in Kswins069 lbs Body Mass Index45.2 kg/m2 Body Surface Area2.3 m2 Oxygen Awhrdqpoki45 % O2 DeviceNone (Room Air) XfU167 % Vital Signs: - Systolic blood pressure [...] in the next year. [facility] History of Present illness Narrative* Kirsten Freemanber, WILDER-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 - 04/30/2023 7:00 PM EDT Subjective: Patient [...] Medical History: Diagnosis Date Anxiety Bipolar disorder (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 RINSE MOUTH AFTER USE. xcxokkmlqlnaavg-ctvzzrykn-GF 2-30-10 mg/5 mL syrup Take 10 mL [...] on file prior to visit. Objective: Vitals: 04/30/231943 BP: 126/61 BP Site: Left Forearm BP [...] immediately. CONNOR Mayberry 04/30/232005 documented in this encounterPremier [facility] SouthSocialPicks [id number] Instructions* Patient Instructions* CONNOR Mayberry - 04/30/2023 7:00 PM EDT Any difficulty in breathing go to ER Use EpiPen if symptoms worsened * Attachments The following attachments cannot be sent through Care Everywhere. * Allergic Reaction ED (Ugandan) documented in this encounterPremier Health [facility] Hospital SouthBoostSuite Harbor Oaks [id number] Progress note* Progress note Date Encounter Last Documented by 04/23/[address] 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 Patient is allergic to melatonin, [...] days, 5 refills - Vitamin D (Ergocalciferol) 90497 UNIT Oral Capsule Capsule, conventional 0 days, [...] And Economic Circumstances: Lives alone. 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 Sexual: Not sexually active. Gender identity Female. [...] - Collaborated with patient and provider: Counseling/Education CE and PA discussed patient's mood and overal functioning, noting that patient reports feeling that medication has been helpful, feels that depression and anxiety have decreased. BHThanh and PA discussed patient's concerns related to [...] time - these days? A little bit. [facility]03-06-2024 Progress note* Progress note Date Encounter Last Documented by 04/23/2023 Medical Established Patient Last documented on 04/23/2023; 1:33 PM, Juanita Lewis PA-C; [facility] Active Problems & Conditions - Asthma [...] nightmares. 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 She [...] days, 5 refills - Vitamin D (Ergocalciferol) 37198 UNIT Oral Capsule Capsule, conventional 0 days, [...] R102/61 mmHg BP Cuff SizeLarge Pulse RhythmRegular Temp-Jsgkdttd84.5 F Ndcwcd61 in Bmuccz484 lbs 6.4 oz Body Mass Index45.3 kg/m2 Body Surface Area2.3 m2 O2 DeviceNone (Room Air) NzB612 % Vital Signs: - Systolic blood pressure [...] Not planning a in the next year. [facility]03-06-2024 Instructions Includes: Instructions for all patient encounters Instructions to patient Intervention and counseling on cessation of tobacco use, 3-10 minutes Discussed medication and nicotine replacement for tobacco cessation Last Documented On 4 10:17AM ; [facility] Intervention and counseling on cessation of tobacco use, 3-10 minutes Discussed medication and nicotine replacement for tobacco cessation Last Documented On 4 10:50AM ; [facility] Intervention and counseling on cessation of tobacco use, 3-10 minutes Discussed medication and nicotine replacement for tobacco cessation Last Documented On 3 8:19PM ; [facility] Education and Decision Aids were provided [...] well Last Documented On 4 12:13PM ; [facility] Discussed nutritional needs teach healthy choices including fruits and vegetables Last Documented On 4 11:01AM ; [facility] Patient education about a pr oper diet Last Documented On 4 11:01AM ; [facility] Discussed concerns about exe rcise : promote physical activity Last Documented On 4 11:01AM ; [facility] Not requesting contraception Last Documented On 4 11:01AM ; [facility] *P offered active and supp ortive [...] visit Last Documented On 4 4:46PM ; [facility] Discussed nutritional needs teach healthy choices including fruits and vegetables Last Documented On 4 9:12AM ; [facility] Patient education about a pr oper diet Last Documented On 4 9:12AM ; [facility] Discussed concerns about exe rcise : promote physical activity Last Documented On 4 9:12AM ; [facility] *P offered active and supp ortive listening, normalized emotions and feelings, and processed current stressors. ~*Discussed healthy coping skills and positive supports in patient's life. ~*Discussed proper sleep hygiene skills to implement to improve sleep. ~ Last Documented On 3 9:42PM ; [facility] Discussed nutritional needs teach healthy choices including fruits and vegetables Last Documented On 3 9:40AM ; [facility] Patient education about a pr oper diet Last Documented On 3 9:40AM ; [facility] Patient education about an a sthma action plan Last Documented On 3 10:31AM ; [facility] Discussed concerns about exe rcise : promote physical activity Last Documented On 3 9:40AM ; [facility] Not requesting contraception Last Documented On 3 9:40AM ; [facility] Discussed nutritional needs teach healthy choices including fruits and vegetables Last Documented On 3 9:08AM ; [facility] Patient education about a pr oper diet Last Documented On 3 9:08AM ; [facility] Discussed concerns about exe rcise : promote physical activity Last Documented On 3 9:08AM ; [facility] Discussed nutritional needs teach healthy choices including fruits and vegetables Last Documented On 3 9:57AM ; [facility] Patient education about a pr oper diet Last Documented On 3 9:57AM ; [facility] Discussed concerns about exe rcise : promote physical activity Last Documented On 3 9:57AM ; [facility] Discussed nutritional needs teach healthy choices including fruits and vegetables Last Documented On 3 9:00AM ; [facility] Patient education about a pr oper diet Last Documented On 3 9:00AM ; [facility] Discussed concerns about exe rcise : promote physical activity Last Documented On 3 9:00AM ; [facility] Not requesting contraception Last Documented On 3 9:00AM ; [facility] Discussed nutritional needs teach healthy choices including fruits and vegetables Last Documented On 3 10:07AM ; [facility] Patient education about a pr oper diet Last Documented On 3 10:07AM ; [facility] Discussed concerns about exe rcise : promote physical activity Last Documented On 3 10:07AM ; [facility] Not requesting contraception Last Documented On 3 10:07AM ; [facility] Discussed nutritional needs teach healthy choices including fruits and vegetables Last Documented On 3 10:02AM ; [facility] Patient education about a pr oper diet Last Documented On 3 10:02AM ; [facility] Discussed concerns about exe rcise : promote physical activity Last Documented On 3 10:02AM ; [facility] Discussed nutritional needs teach healthy choices including fruits and vegetables Last Documented On 3 2:56PM ; [facility] Patient education about a pr oper diet Last Documented On 3 2:56PM ; [facility] Discussed concerns about exe rcise : promote physical activity Last Documented On 3 2:56PM ; [facility] Discussed nutritional needs teach healthy choices including fruits and vegetables Last Documented On 3 2:11PM ; [facility] Patient education about a pr oper diet Last Documented On 3 2:11PM ; [facility] Discussed concerns about exe rcise : promote physical activity Last Documented On 3 2:11PM ; [facility] BHP educated patient on HPWO model [...] free Last Documented On 3 11:35AM ; [facility] Discussed nutritional needs teach healthy choices including fruits and vegetables Last Documented On 3 10:53AM ; [facility] Patient education about a pr oper diet Last Documented On 3 10:53AM ; [facility] Discussed concerns about exe rcise : promote physical activity Last Documented On 3 10:53AM ; [facility] Work Phone: 1(805) 853-589403-06-2024 Instructions Includes: Instructions for all patient encounters Instructions to patient Intervention and counseling on cessation of tobacco use, 3-10 minutes Discussed medication and nicotine replacement for tobacco cessation Last Documented On 4 10:17AM ; [facility] Intervention and counseling on cessation of tobacco use, 3-10 minutes Discussed medication and nicotine replacement for tobacco cessation Last Documented On 4 10:50AM ; [facility] Intervention and counseling on cessation of tobacco use, 3-10 minutes Discussed medication and nicotine replacement for tobacco cessation Last Documented On 3 8:19PM ; [facility] Education and Decision Aids were provided [...] well Last Documented On 4 12:13PM ; [facility] Discussed nutritional needs teach healthy choices including fruits and vegetables Last Documented On 4 11:01AM ; [facility] Patient education about a pr oper diet Last Documented On 4 11:01AM ; [facility] Discussed concerns about exe rcise : promote physical activity Last Documented On 4 11:01AM ; [facility] Not requesting contraception Last Documented On 4 11:01AM ; [facility] *P offered active and supp ortive [...] visit Last Documented On 4 4:46PM ; [facility] Discussed nutritional needs teach healthy choices including fruits and vegetables Last Documented On 4 9:12AM ; [facility] Patient education about a pr oper diet Last Documented On 4 9:12AM ; [facility] Discussed concerns about exe rcise : promote physical activity Last Documented On 4 9:12AM ; [facility] *[facility] offered active and supp ortive listening, normalized emotions and feelings, and processed current stressors. ~*Discussed healthy coping skills and positive supports in patient's life. ~*Discussed proper sleep hygiene skills to implement to improve sleep. ~ Last Documented On 3 9:42PM ; [facility] Discussed nutritional needs teach healthy choices including fruits and vegetables Last Documented On 3 9:40AM ; [facility] Patient education about a pr oper diet Last Documented On 3 9:40AM ; [facility] Patient education about an a sthma action plan Last Documented On 3 10:31AM ; [facility] Discussed concerns about exe rcise : promote physical activity Last Documented On 3 9:40AM ; [facility] Not requesting contraception Last Documented On 3 9:40AM ; [facility] Discussed nutritional needs teach healthy choices including fruits and vegetables Last Documented On 3 9:08AM ; [facility] Patient education about a pr oper diet Last Documented On 3 9:08AM ; [facility] Discussed concerns about exe rcise : promote physical activity Last Documented On 3 9:08AM ; [facility] Discussed nutritional needs teach healthy choices including fruits and vegetables Last Documented On 3 9:57AM ; [facility] Patient education about a pr oper diet Last Documented On 3 9:57AM ; [facility] Discussed concerns about exe rcise : promote physical activity Last Documented On 3 9:57AM ; [facility] Discussed nutritional needs teach healthy choices including fruits and vegetables Last Documented On 3 9:00AM ; [facility] Patient education about a pr oper diet Last Documented On 3 9:00AM ; [facility] Discussed concerns about exe rcise : promote physical activity Last Documented On 3 9:00AM ; [facility] Not requesting contraception Last Documented On 3 9:00AM ; [facility] Discussed nutritional needs teach healthy choices including fruits and vegetables Last Documented On 3 10:07AM ; [facility] Patient education about a pr oper diet Last Documented On 3 10:07AM ; [facility] Discussed concerns about exe rcise : promote physical activity Last Documented On 3 10:07AM ; [facility] Not requesting contraception Last Documented On 3 10:07AM ; [facility] Discussed nutritional needs teach healthy choices including fruits and vegetables Last Documented On 3 10:02AM ; [facility] Patient education about a pr oper diet Last Documented On 3 10:02AM ; [facility] Discussed concerns about exe rcise : promote physical activity Last Documented On 3 10:02AM ; [facility] Discussed nutritional needs teach healthy choices including fruits and vegetables Last Documented On 3 2:56PM ; [facility] Patient education about a pr oper diet Last Documented On 3 2:56PM ; [facility] Discussed concerns about exe rcise : promote physical activity Last Documented On 3 2:56PM ; [facility] Discussed nutritional needs teach healthy choices including fruits and vegetables Last Documented On 3 2:11PM ; [facility] Patient education about a pr oper diet Last Documented On 3 2:11PM ; [facility] Discussed concerns about exe rcise : promote physical activity Last Documented On 3 2:11PM ; [facility] [...] free Last Documented On 3 11:35AM ; [facility] Discussed nutritional needs teach healthy choices including fruits and vegetables Last Documented On 3 10:53AM ; [facility] Patient education about a pr oper diet Last Documented On 3 10:53AM ; [facility] Discussed concerns about exe rcise : promote physical activity Last Documented On 3 10:53AM ; [facility] Work Phone: 1(461) 350-123502-21-2024 Progress note* Progress note Date Encounter Last Documented by 04/09/2023 Open Access - Established Last d ocumented on 04/09/2023; 10:53 AM, Juanita Lewis PA-C; [facility] Active Problems & Conditions - Asthma [...] breathing was better when she was in snf/not vaping. She has started drining water more [...] days, 5 refills - Vitamin D (Ergocalciferol) 70609 UNIT Oral Capsule 0 days, 0 refills [...] BP-Sitting L126/87 mmHg BP Cuff SizeLarge Pulse Rate-Vcbaclr29 bpm Temp-Oral97.1 F Jwuxhb07 in Duxaox675 lbs 3.2 oz Body Mass Index46 kg/m2 Body Surface Area2.3 m2 Oxygen Dsbgkthdnq51 % Vital Signs: - Systolic blood pressure [...] administration. Administered 3 mL of Lidocaine-EPINEPHrine 2 %-1:790239 on 04/09/23 10:00a, Patient tolerated therapy well. [...] w/epi), Nexplanon Implant In House Medications/Injection Codes: 63654 Therapeutic Prophy or Diag Injection, EACH EndCited [...] symptom. Consent form on file for procedure:Nexplanon. [facility]02-21-2024 Progress note* Progress note Date Encounter Last Documented by 04/09/2023 Established Patient Last docu mented on 04/14/2023; 4:48 PM, Kristin SALGADO; [facility] Active Problems & Conditions - J45.31 [...] 14. LEXY is 14. Negative SBIRT Subjective B[facility] met with patient to complete screenings, discuss [...] in the past. Patient denies any other concerns today and [...] days, 5 refills - Vitamin D (Ergocalciferol) 46405 UNIT Oral Capsule Capsule, conventional 0 days, [...] - Wishing to stop using electronic cigarettes/vaping *[facility] offered active and supportive listening, normalized [...] of things, or get along? Somewhat difficult. [facility]02-21-2024 Reason for referral (narrative)* Date Encounter Description Provider Reason for Referral 04/09/23 Established Patient Kristin Grande Referral To Mental Health Team 01/24/23 Established Patient Kristin Grande External referral/Resources provided - : Sleep hygiene. ~ 01/24/23 Medical Established Patient Juanita saunders PA-C Referral To Mental Health Team [facility] Work Phone: 1(914) 152-208702-21-2024 Instructions Includes: Instructions for all patient encounters Instructions to patient Intervention and counseling on cessation of tobacco use, 3-10 minutes Discussed medication and nicotine replacement for tobacco cessation Last Documented On 4 10:17AM ; [facility] Intervention and counseling on cessation of tobacco use, 3-10 minutes Discussed medication and nicotine replacement for tobacco cessation Last Documented On 4 10:50AM ; [facility] Intervention and counseling on cessation of tobacco use, 3-10 minutes Discussed medication and nicotine replacement for tobacco cessation Last Documented On 3 8:19PM ; [facility] Education and Decision Aids were provided during visit for: Discussed nutritional needs teach healthy choices including fruits and vegetables Last Documented On 4 9:12AM ; [facility] Patient education about a pr oper diet Last Documented On 4 9:12AM ; [facility] Discussed concerns about exe rcise : promote physical activity Last Documented On 4 9:12AM ; [facility] *[facility] offered active and supp ortive listening, normalized emotions and feelings, and processed current stressors. ~*Discussed healthy coping skills and positive supports in patient's life. ~*Discussed proper sleep hygiene skills to implement to improve sleep. ~ Last Documented On 3 9:42PM ; [facility] Discussed nutritional needs teach healthy choices including fruits and vegetables Last Documented On 3 9:40AM ; [facility] Patient education about a pr oper diet Last Documented On 3 9:40AM ; [facility] Patient education about an a sthma action plan Last Documented On 3 10:31AM ; [facility] Discussed concerns about exe rcise : promote physical activity Last Documented On 3 9:40AM ; [facility] Not requesting contraception Last Documented On 3 9:40AM ; [facility] Discussed nutritional needs teach healthy choices including fruits and vegetables Last Documented On 3 9:08AM ; [facility] Patient education about a pr oper diet Last Documented On 3 9:08AM ; [facility] Discussed concerns about exe rcise : promote physical activity Last Documented On 3 9:08AM ; [facility] Discussed nutritional needs teach healthy choices including fruits and vegetables Last Documented On 3 9:57AM ; [facility] Patient education about a pr oper diet Last Documented On 3 9:57AM ; [facility] Discussed concerns about exe rcise : promote physical activity Last Documented On 3 9:57AM ; [facility] Discussed nutritional needs teach healthy choices including fruits and vegetables Last Documented On 3 9:00AM ; [facility] Patient education about a pr oper diet Last Documented On 3 9:00AM ; [facility] Discussed concerns about exe rcise : promote physical activity Last Documented On 3 9:00AM ; [facility] Not requesting contraception Last Documented On 3 9:00AM ; [facility] Discussed nutritional needs teach healthy choices including fruits and vegetables Last Documented On 3 10:07AM ; [facility] Patient education about a pr oper diet Last Documented On 3 10:07AM ; [facility] Discussed concerns about exe rcise : promote physical activity Last Documented On 3 10:07AM ; [facility] Not requesting contraception Last Documented On 3 10:07AM ; [facility] Discussed nutritional needs teach healthy choices including fruits and vegetables Last Documented On 3 10:02AM ; [facility] Patient education about a pr oper diet Last Documented On 3 10:02AM ; [facility] Discussed concerns about exe rcise : promote physical activity Last Documented On 3 10:02AM ; [facility] Discussed nutritional needs teach healthy choices including fruits and vegetables Last Documented On 3 2:56PM ; [facility] Patient education about a pr oper diet Last Documented On 3 2:56PM ; [facility] Discussed concerns about exe rcise : promote physical activity Last Documented On 3 2:56PM ; [facility] Discussed nutritional needs teach healthy choices including fruits and vegetables Last Documented On 3 2:11PM ; [facility] Patient education about a pr oper diet Last Documented On 3 2:11PM ; [facility] Discussed concerns about exe rcise : promote physical activity Last Documented On 3 2:11PM ; [facility] [...] free Last Documented On 3 11:35AM ; [facility] Discussed nutritional needs teach healthy choices including fruits and vegetables Last Documented On 3 10:53AM ; [facility] Patient education about a pr oper diet Last Documented On 3 10:53AM ; [facility] Discussed concerns about exe rcise : promote physical activity Last Documented On 3 10:53AM ; [facility] Work Phone: 1(835) 422-813701-10-2024 History of Present illness Narrative* Rosalie Cox, WILDER-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 - 02/26/2023 12:15 PM EST Subjective: Patient [...] Medical History: Diagnosis Date Anxiety Bipolar disorder ([facility]) Depression Headache Multiple personality disorder ([facility]) Panic disorder PCOS (polycystic ovarian syndrome) PTSD [...] Nose: Congestion and rhinorrhea present. Mouth/Throat: Lips: [place]. Mouth: Mucous membranes are moist. Pharynx: Oropharynx [...] External Poct Rapid Stre* 02/05/2023 Negative Internal Studio Director* 02/05/2023 Yes External Poct Influenza * 02/05/2023 [...] this for 7 days. Other orders - csiibizdbokpojj-xnrfjzldl-BX 2-30-10 mg/5 mL syrup; Take 10 mL by mouth 4 (four) times a day as needed for allergies, cough or congestion. Orders Placed or Reconciled This Encounter Medications amoxicillin-pot clavulanate (AUGMENTIN) 875-125 mg per tablet Sig: Take 1 tablet by mouth in the morning and 1 tablet before bedtime. Do all this for 7 days. Dispense: 14 tablet Refill: 0 tkypewnkwaoxljc-ecddrfkbo-YO 2-30-10 mg/5 mL syrup Sig: Take 10 [...] Emergency Department for further care immediately. CONNOR Vazquez 02/26/23 1318 documented in [facility] SouthSocialPicks [id number] Instructions* Patient Instructions* CONNOR Vazquez - 02/26/2023 [...] Infections (Otitis Media) in Adults Discharge Instructions (Ugandan) [facility] History general Narrative - Reported Includes: Medical History in patient's chart Description Last Updated No Safety Measures 01/26/2023 Last Documented On 3 9:45PM ; [facility] Not planning to have a baby in the next 12 months 10/09/2022 Last Documented On 3 2:42PM ; [facility] Recent immunization for flu 05/27/2022 Last Documented On 3 4:00PM ; [facility] No previous suicide attempt 04/29/2022 Last Documented On 3 11:36AM ; [facility] History of asthma 04/29/2022 Last Documented On 3 1:03PM ; [facility] History of psychiatric disorders 023 Last Documented On 3 1:03PM ; [facility] History of systemic hypertension 023 Last Documented On 3 1:03PM ; [facility] No previous hospitalizations 04/29/2022 Last Documented On 3 1:03PM ; [facility] Work Phone: 1(492) 939-689612-10-2023 History general Narrative - Reported Includes: Medical History in patient's chart Description Last Updated No Safety Measures 01/26/2023 Last Documented On 3 9:45PM ; [facility] Not planning to have a baby in the next 12 months 10/09/2022 Last Documented On 3 2:42PM ; [facility] Recent immunization for flu 05/27/2022 Last Documented On 3 4:00PM ; [facility] No previous suicide attempt 04/29/2022 Last Documented On 3 11:36AM ; [facility] History of asthma 04/29/2022 Last Documented On 3 1:03PM ; [facility] History of psychiatric disorders 023 Last Documented On 3 1:03PM ; [facility] History of systemic hypertension 023 Last Documented On 3 1:03PM ; [facility] No previous hospitalizations 04/29/2022 Last Documented On 3 1:03PM ; [facility] Work Phone: [phone]) 735-131912-10-2023 History general Narrative - Reported Includes: Medical History in patient's chart Description Last Updated No Safety Measures 01/26/2023 Last Documented On 3 9:45PM ; [facility] Not planning to have a baby in the next 12 months 10/09/2022 Last Documented On 3 2:42PM ; [facility] Recent immunization for flu 05/27/2022 Last Documented On 3 4:00PM ; [facility] No previous suicide attempt 04/29/2022 Last Documented On 3 11:36AM ; [facility] History of asthma 04/29/2022 Last Documented On 3 1:03PM ; [facility] History of psychiatric disorders 023 Last Documented On 3 1:03PM ; [facility] History of systemic hypertension 023 Last Documented On 3 1:03PM ; [facility] No previous hospitalizations 04/29/2022 Last Documented On 3 1:03PM ; [facility] Work Phone: [phone] 574-108412-10-2023 History general Narrative - Reported Includes: Medical History in patient's chart Description Last Updated No Safety Measures 01/26/2023 Last Documented On 3 9:45PM ; [facility] Not planning to have a baby in the next 12 months 10/09/2022 Last Documented On 3 2:42PM ; [facility] Recent immunization for flu 05/27/2022 Last Documented On 3 4:00PM ; [facility] No previous suicide attempt 04/29/2022 Last Documented On 3 11:36AM ; [facility] History of asthma 04/29/2022 Last Documented On 3 1:03PM ; [facility] History of psychiatric disorders 023 Last Documented On 3 1:03PM ; [facility] History of systemic hypertension 023 Last Documented On 3 1:03PM ; [facility] No previous hospitalizations 04/29/2022 Last Documented On 3 1:03PM ; [facility] Work Phone: [phone] 933-472612-10-2023 History general Narrative - Reported Includes: Medical History in patient's chart Description Last Updated No Safety Measures 01/26/2023 Last Documented On 3 9:45PM ; [facility] Not planning to have a baby in the next 12 months 10/09/2022 Last Documented On 3 2:42PM ; [facility] Recent immunization for flu 05/27/2022 Last Documented On 3 4:00PM ; [facility] No previous suicide attempt 04/29/2022 Last Documented On 3 11:36AM ; [facility] History of asthma 04/29/2022 Last Documented On 3 1:03PM ; [facility] History of psychiatric disorders 023 Last Documented On 3 1:03PM ; [facility] History of systemic hypertension 023 Last Documented On 3 1:03PM ; [facility] No previous hospitalizations 04/29/2022 Last Documented On 3 1:03PM ; [facility] Work Phone: [phone] 110-912212-10-2023 Instructions Includes: Instructions for all patient encounters Instructions to patient Intervention and counseling on cessation of tobacco use, 3-10 minutes Discussed medication and nicotine replacement for tobacco cessation Last Documented On 3 8:19PM ; [facility] Education and Decision Aids were provided during visit for: *[facility] offered active and supp ortive listening, normalized emotions and feelings, and processed current stressors. ~*Discussed healthy coping skills and positive supports in patient's life. ~*Discussed proper sleep hygiene skills to implement to improve sleep. ~ Last Documented On 3 9:42PM ; [facility] Discussed nutritional needs teach healthy choices including fruits and vegetables Last Documented On 3 9:40AM ; [facility] Patient education about a pr oper diet Last Documented On 3 9:40AM ; [facility] Patient education about an a sthma action plan Last Documented On 3 10:31AM ; [facility] Discussed concerns about exe rcise : promote physical activity Last Documented On 3 9:40AM ; [facility] Not requesting contraception Last Documented On 3 9:40AM ; [facility] Discussed nutritional needs teach healthy choices including fruits and vegetables Last Documented On 3 9:08AM ; [facility] Patient education about a pr oper diet Last Documented On 3 9:08AM ; [facility] Discussed concerns about exe rcise : promote physical activity Last Documented On 3 9:08AM ; [facility] Discussed nutritional needs teach healthy choices including fruits and vegetables Last Documented On 3 9:57AM ; [facility] Patient education about a pr oper diet Last Documented On 3 9:57AM ; [facility] Discussed concerns about exe rcise : promote physical activity Last Documented On 3 9:57AM ; [facility] Discussed nutritional needs teach healthy choices including fruits and vegetables Last Documented On 3 9:00AM ; [facility] Patient education about a pr oper diet Last Documented On 3 9:00AM ; [facility] Discussed concerns about exe rcise : promote physical activity Last Documented On 3 9:00AM ; [facility] Not requesting contraception Last Documented On 3 9:00AM ; [facility] Discussed nutritional needs teach healthy choices including fruits and vegetables Last Documented On 3 10:07AM ; [facility] Patient education about a pr oper diet Last Documented On 3 10:07AM ; [facility] Discussed concerns about exe rcise : promote physical activity Last Documented On 3 10:07AM ; [facility] Not requesting contraception Last Documented On 3 10:07AM ; [facility] Discussed nutritional needs teach healthy choices including fruits and vegetables Last Documented On 3 10:02AM ; [facility] Patient education about a pr oper diet Last Documented On 3 10:02AM ; [facility] Discussed concerns about exe rcise : promote physical activity Last Documented On 3 10:02AM ; [facility] Discussed nutritional needs teach healthy choices including fruits and vegetables Last Documented On 3 2:56PM ; [facility] Patient education about a pr oper diet Last Documented On 3 2:56PM ; [facility] Discussed concerns about exe rcise : promote physical activity Last Documented On 3 2:56PM ; [facility] Discussed nutritional needs teach healthy choices including fruits and vegetables Last Documented On 3 2:11PM ; [facility] Patient education about a pr oper diet Last Documented On 3 2:11PM ; [facility] Discussed concerns about exe rcise : promote physical activity Last Documented On 3 2:11PM ; [facility] BHP educated patient on HPWO model [...] free Last Documented On 3 11:35AM ; [facility] Discussed nutritional needs teach healthy choices including fruits and vegetables Last Documented On 3 10:53AM ; [facility] Patient education about a pr oper diet Last Documented On 3 10:53AM ; [facility] Discussed concerns about exe rcise : promote physical activity Last Documented On 3 10:53AM ; [facility] Work Phone: [phone]) 303-936412-08-2023 Evaluation note Includes: Assessments for all patient encounters Findings Encounter Date Bipolar I disorder Established Patient with Dixon steven Dean DELIVERY TABLE OPERATOR-S 01/24/2023 Last Documented On 3 9:45PM ; [facility] [G47.30 - Sleep apnea, unspe cified] organic sleep apnea Medical Established Patient with Juanita Mandydorf PA-C 01/24/2023 Last Documented On 3 10:48AM ; [facility] [Z68.42 - Body mass index [B MA] 45.0-49.9, adult] assessment of body mass index was 46.3 kg/m2 Medical Established Patient with Juanita Mandydorf PA-C 01/24/2023 Last Documented On 3 10:48AM ; [facility] Classic migraine with aura w ith intractable migraine with status migrainosus Medical Established Patient with Juanita Mandydorf PA-C 01/24/2023 Last Documented On 3 10:48AM ; [facility] Mild persistent asthma with exacerbation Medical Established Patient with Juanita Hattendorf PA-C 01/24/2023 Last Documented On 3 10:48AM ; [facility] [Z02.1 - Encounter for pre-e mployment examination] routine pre-employment screening examination Open Access - Established with Juanita Mandydorf PA-C 11/29/2022 Last Documented On 3 4:45PM ; [facility] [Z11.1 - Encounter for miguel angel marcus for respiratory tuberculosis] visit for: screening for pulmonary tuberculosis Open Access - Established with Juanita Lewis PA-C 11/29/2022 Last Documented On 3 4:45PM ; [facility] [Z68.42 - Body mass index [B MA] 45.0-49.9, adult] assessment of body mass index Open Access - Established with Juanita Hattendorf PA-C 11/29/2022 Last Documented On 3 4:45PM ; [facility] Encounter for Immunization Open Access - Established with Juanita Hattendomaico PA-C 11/29/2022 Last Documented On 3 4:45PM ; [facility] Prediabetes Open Access - Established with Harjinder Galvandomaico PA-C 11/29/2022 Last Documented On 3 4:45PM ; [facility] [Z68.42 - Body mass index [B MA] 45.0-49.9, adult] assessment of body mass index Open Access - Established with Juanita Barbaranadeemdorf PA-C 11/05/2022 Last Documented On 3 12:38PM ; [facility] Acute serous otitis media of left ear Open Access - Established with Juanita Hattendorf PA-C 11/05/2022 Last Documented On 3 12:38PM ; [facility] [J02.9 - Acute pharyngitis, unspecified] acute pharyngitis Open Access - Established with Kb Pelaez CNP 10/17/2022 Last Documented On 3 12:51PM ; [facility] [J11.1 - Influenza due to un identified influenza virus with other respiratory manifestations] influenza with URI Open Access - Established with Kb Pelaez CNP 10/17/2022 Last Documented On 3 12:51PM ; [facility] [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) Open Access - Established with Kb Pelaez CNP 10/17/2022 Last Documented On 3 12:51PM ; [facility] [R35.0 - Frequency of mictur ition] urinary frequency Open Access - Established with Kb Pelaez CNP 10/17/2022 Last Documented On 3 12:51PM ; [facility] [Z68.42 - Body mass index [B MA] 45.0-49.9, adult] assessment of body mass index was 47.2 kg/m2 Open Access - Established with Kb Pelaez CNP 10/17/2022 Last Documented On 3 12:51PM ; [facility] Intervention and counseling on cessation of tobacco use, 3-10 minutes Discussed medication and nicotine replacement for tobacco cessation Open Access - Established with Kb Pelaez CNP 10/17/2022 Last Documented On 3 12:51PM ; [facility] Nicotine dependence Open Access - Establ ished with Kb Pelaez CNP 10/17/2022 Last Documented On 3 12:51PM ; [facility] Venipuncture was performed Open Access - Established with Kb Pelaez CNP 10/17/2022 Last Documented On 3 12:51PM ; [facility] [F17.200 - Nicotine dependen ce, unspecified, uncomplicated] nicotine dependence uncomplicated Medical Established Patient with Juanita Mandydorf PA-C 10/09/2022 Last Documented On 3 2:42PM ; [facility] [Z68.42 - Body mass index [B MA] 45.0-49.9, adult] assessment of body mass index Medical Established Patient with Juanita Mandydorf PA-C 10/09/2022 Last Documented On 3 2:42PM ; [facility] Classic migraine (with aura) with intractable migraine with status migrainosus Medical Established Patient with Juanita Hattendorf PA-C 10/09/2022 Last Documented On 3 2:42PM ; [facility] Iron deficiency anemia Medical Establish ed Patient with Juanita Hattendorf PA-C 10/09/2022 Last Documented On 3 2:42PM ; [facility] Prediabetes Medical Established Patient with Juanita Hattendorf PA-C 10/09/2022 Last Documented On 3 2:42PM ; [facility] [R73.03 - Prediabetes] prediabetes Open Access - Established with Juanita Lewis PA-C 09/18/2022 Last Documented On 3 2:31PM ; [facility] [Z68.42 - Body mass index [B MA] 45.0-49.9, adult] assessment of body mass index Open Access - Established with Juanita Mandydorf PA-C 09/18/2022 Last Documented On 3 2:31PM ; [facility] Classic migraine (with aura) with intractable migraine with status migrainosus Open Access - Established with Juanita Mandydorf PA-C 09/18/2022 Last Documented On 3 2:31PM ; [facility] [S80.12XD - Contusion of lef t lower leg, subsequent encounter] contusion with intact skin surface of left anterior lower leg Medical Established Patient with Juanita Mandydorf PA-C 05/27/2022 Last Documented On 3 4:00PM ; [facility] [Z68.42 - Body mass index [B MA] 45.0-49.9, adult] assessment of body mass index Medical Established Patient with Juanita Mandydorf PA-C 05/27/2022 Last Documented On 3 4:00PM ; [facility] Pain in lower leg Medical Established Patient wi th Juanita Mandyrf PA-C 05/27/2022 Last Documented On 3 4:00PM ; [facility] Iron deficiency anemia Chart Update with Juanita Barbaratendorf PA-C 05/21/2022 Last Documented On 3 4:12PM ; [facility] [E55.9 - Vitamin D deficienc y, unspecified] vitamin D deficiency Open Access - Established with Juanita Mandydorf PA-C 05/17/2022 Last Documented On 3 3:44PM ; [facility] [Z68.42 - Body mass index [B MA] 45.0-49.9, adult] assessment of body mass index Open Access - Established with Juanita Mandydorf PA-C 05/17/2022 Last Documented On 3 3:44PM ; [facility] Iron deficiency anemia Open Access - Est ablished with Juanita Lewis PA-C 05/17/2022 Last Documented On 3 3:44PM ; [facility] Organic sleep apnea Open Access - Established wi della Lewis PA-C 05/17/2022 Last Documented On 3 3:44PM ; [facility] Primary snoring Open Access - Established with Harjinder Lewis PA-C 05/17/2022 Last Documented On 3 3:44PM ; [facility] Bipolar I disorder Established Patient with Jammie ochoanicky Juan SMITH 04/29/2022 Last Documented On 3 11:36AM ; [facility] Nicotine dependence Established Patient with Odalys Fieldtz DELIVERY TABLE OPERATOR 04/29/2022 Last Documented On 3 11:36AM ; [facility] [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 adult medical examination with abnormal findings] routine history and physical Open Access New Patient with Juanita Lewis PA-C 04/29/2022 Last Documented On 3 1:03PM ; [facility] [Z68.42 - Body mass index [B MA] 45.0-49.9, adult] assessment of body mass index Open Access New Patient with Juanita Lewis PA-C 04/29/2022 Last Documented On 3 1:03PM ; [facility] Diabetes Risk Test Score was five score 04/29/2022 Open Access New Patient with Juanita Guanrf PA-C 04/29/2022 Last Documented On 3 1:03PM ; [facility] Recurrent pharyngitis streptococcus Open Access New Patient with Juanita Guanrf PA-C 04/29/2022 Last Documented On 3 1:03PM ; [facility] Screening for Hep C Open Access New Patient with Juanita Lewis PA-C 04/29/2022 Last Documented On 3 1:03PM ; [facility] Screening for HIV Open Access New Patient with Harjinder Lewis PA-C 04/29/2022 Last Documented On 3 1:03PM ; [facility] Work Phone: 1(718) 580-900912-08-2023 Progress note* Progress note Date Encounter Last Documented by 01/24/2023 Established Patient Last docu mented on 01/26/2023; 9:45 PM, Kristin SALGADO; [facility] Active Problems & Conditions - J45.31 [...] PHQ is 8. LEXY is 0 Subjective [facility] met with patient to review screenings, discuss [...] also interested in discussing sleep hygiene with [facility] today. Patient denies any other concerns today [...] days, 2 refills - Vitamin D (Ergocalciferol) 42382 UNIT Oral Capsule Capsule, conventional 0 days, [...] not wishing to stop using electronic cigarettes/vaping *P offered [...] Reminders - Assess Tobacco Use satisfied 01/26/2023. [facility]12-08-2023 Progress note* Progress note Date Encounter Last Documented by 01/24/2023 Medical Established Patient Last documented on 01/24/2023; 10:48 AM, Juanita Lewis PA-C; [facility] Active Problems & Conditions - Asthma [...] urgent care clinic. Referred by emergency room [facility] on [address] 01/[facility]. No prior encounters. [...] the past few weeks. She presented to [place] [facility] on 01/22/23 and was diagnosed with [...] days, 2 refills - Vitamin D (Ergocalciferol) 99390 UNIT Oral Capsule 0 days, 0 refills [...] BP-Sitting R126/91 mmHg BP Cuff SizeLarge Pulse Rate-Rcehylo73 bpm Pulse RhythmRegular Temp-Khomequq77.1 F Ywmhjt37 in Jrdwdz004 lbs Body Mass Index46.3 kg/m2 Body Surface Area2.3 m2 Oxygen Yqwzkmoghx93 % O2 DeviceNone (Room Air) OmU907 % Vital Signs: - Systolic blood pressure [...] Diagn Tests: Other Diagnostic Test: Instructions: polysomnography 37651 EndCited restart topamax start symbicort inhaler, albuterol [...] + 0 pt : Not at all. [facility]12-08-2023 Reason for referral (narrative)* Date Encounter Description Provider Reason for Referral 01/24/23 Established Patient Kristin Grande External referral/Resources provided - : Sleep hygiene. ~ 01/24/23 Medical Established Patient Juanita saunders PA-C Referral To Mental Health Team [facility] Work Phone: [phone]) 334-757212-08-2023 Reason for referral (narrative)* Date Encounter Description Provider Reason for Referral 04/09/23 Established Patient Kristin MONTEIRO Harjinder Referral To Mental Health Team 01/24/23 Established Patient Kristin SMITH- Harjinder External referral/Resources provided - : Sleep hygiene. ~ 01/24/23 Medical Established Patient Juanita saunders PA-C Referral To Mental Health Team [facility] Work Phone: 1(750) 954-539310-13-2023 Progress note* Progress note Date Encounter Last Documented by 11/29/2022 Open Access - Established Last d ocumented on 11/29/2022; 4:45 PM, Juanita Lewis PA-C; [facility] Active Problems & Conditions - Bipolar [...] days, 2 refills - Vitamin D (Ergocalciferol) 34835 UNIT Oral Capsule 0 days, 0 refills [...] Findings - Vitals taken 11/29/2022 09:06 am BP-Ymrwujv935/66 mmHg Pulse Rate-Uvjftkh07 bpm Temp-Oral97.4 F Hlncbu27 in Knqllq863 lbs 3.2 oz Body Mass Index46 kg/m2 Body Surface Area2.3 m2 Oxygen Qqpxcleluj75 % Vital Signs: - Systolic blood pressure [...] Skin Test Product In House Medications/Injection Codes: 69931 Therapeutic Prophy or Diag Injection, EACH EndCited will clear pt once titers are resulted follow up as needed Health Reminders - Assess BMI satisfied 11/29/2022. - Assess Tobacco Use satisfied 11/29/2022. - Follow Up Plan BMI Management satisfied 11/29/2022. [facility]09-19-2023 Progress note* Progress note Date Encounter Last Documented by 11/05/2022 Open Access - Established Last d ocumented on 11/05/2022; 12:38 PM, Juanita Lewis PA-C; [facility] Active Problems & Conditions - Bipolar [...] prn pain, 30 days, 0 refills - [place] In Vitro Strip use to check sugar [...] days, 2 refills - Vitamin D (Ergocalciferol) 21624 UNIT Oral Capsule 0 days, 0 refills [...] Findings - Vitals taken 11/05/2022 09:55 am BP-Tmtlsrq442/62 mmHg Pulse Rate-Podiepo55 bpm Temp-Oral96.9 F Qxrwke66 in Pemfpd991 lbs 12.8 oz Body Mass Index46.5 kg/m2 Body Surface Area2.3 m2 Oxygen Jamdclpdyb50 % Vital Signs: - Systolic blood pressure [...] Follow Up Plan BMI Management satisfied 11/05/2022. [facility]09-19-2023 Instructions Includes: Instructions for all patient encounters Instructions to patient Intervention and counseling on cessation of tobacco use, 3-10 minutes Discussed medication and nicotine replacement for tobacco cessation Last Documented On 3 8:19PM ; [facility] Education and Decision Aids were provided during visit for: Discussed nutritional needs teach healthy choices including fruits and vegetables Last Documented On 3 9:57AM ; [facility] Patient education about a pr oper diet Last Documented On 3 9:57AM ; [facility] Discussed concerns about exe rcise : promote physical activity Last Documented On 3 9:57AM ; [facility] Discussed nutritional needs teach healthy choices including fruits and vegetables Last Documented On 3 9:00AM ; [facility] Patient education about a pr oper diet Last Documented On 3 9:00AM ; [facility] Discussed concerns about exe rcise : promote physical activity Last Documented On 3 9:00AM ; [facility] Not requesting contraception Last Documented On 3 9:00AM ; [facility] Discussed nutritional needs teach healthy choices including fruits and vegetables Last Documented On 3 10:07AM ; [facility] Patient education about a pr oper diet Last Documented On 3 10:07AM ; [facility] Discussed concerns about exe rcise : promote physical activity Last Documented On 3 10:07AM ; [facility] Not requesting contraception Last Documented On 3 10:07AM ; [facility] Discussed nutritional needs teach healthy choices including fruits and vegetables Last Documented On 3 10:02AM ; [facility] Patient education about a pr oper diet Last Documented On 3 10:02AM ; [facility] Discussed concerns about exe rcise : promote physical activity Last Documented On 3 10:02AM ; [facility] Discussed nutritional needs teach healthy choices including fruits and vegetables Last Documented On 3 2:56PM ; [facility] Patient education about a pr oper diet Last Documented On 3 2:56PM ; [facility] Discussed concerns about exe rcise : promote physical activity Last Documented On 3 2:56PM ; [facility] Discussed nutritional needs teach healthy choices including fruits and vegetables Last Documented On 3 2:11PM ; [facility] Patient education about a pr oper diet Last Documented On 3 2:11PM ; [facility] Discussed concerns about exe rcise : promote physical activity Last Documented [facility] 3 2:11PM [facility] [...] free Last Documented On 3 11:35AM ; [facility] Discussed nutritional needs teach healthy choices including fruits and vegetables Last Documented On 3 10:53AM ; [facility] Patient education about a pr oper diet Last Documented On 3 10:53AM ; [facility] Discussed concerns about exe rcise : promote physical activity Last Documented On 3 10:53AM ; [facility] Work Phone: 1(420) 677-211409-01-2023 Instructions Includes: Instructions for all patient encounters Instructions to patient Intervention and counseling on cessation of tobacco use, 3-10 minutes Discussed medication and nicotine replacement for tobacco cessation Last Documented On 3 8:19PM ; [facility] Education and Decision Aids were provided during visit for: Discussed nutritional needs teach healthy choices including fruits and vegetables Last Documented On 3 9:00AM ; [facility] Patient education about a pr oper diet Last Documented On 3 9:00AM ; [facility] Discussed concerns about exe rcise : promote physical activity Last Documented On 3 9:00AM ; [facility] Not requesting contraception Last Documented On 3 9:00AM ; [facility] Discussed nutritional needs teach healthy choices including fruits and vegetables Last Documented On 3 10:07AM ; [facility] Patient education about a pr oper diet Last Documented On 3 10:07AM ; [facility] Discussed concerns about exe rcise : promote physical activity Last Documented On 3 10:07AM ; [facility] Not requesting contraception Last Documented On 3 10:07AM ; [facility] Discussed nutritional needs teach healthy choices including fruits and vegetables Last Documented On 3 10:02AM ; [facility] Patient education about a pr oper diet Last Documented On 3 10:02AM ; [facility] Discussed concerns about exe rcise : promote physical activity Last Documented On 3 10:02AM ; [facility] Discussed nutritional needs teach healthy choices including fruits and vegetables Last Documented On 3 2:56PM ; [facility] Patient education about a pr oper diet Last Documented On 3 2:56PM ; [facility] Discussed concerns about exe rcise : promote physical activity Last Documented On 3 2:56PM ; [facility] Discussed nutritional needs teach healthy choices including fruits and vegetables Last Documented On 3 2:11PM ; [facility] Patient education about a pr oper diet Last Documented On 3 2:11PM ; [facility] Discussed concerns about exe rcise : promote physical activity Last Documented On 3 2:11PM ; [facility] of [...] free Last Documented On 3 11:35AM ; [facility] Discussed nutritional needs teach healthy choices including fruits and vegetables Last Documented On 3 10:53AM ; [facility] Patient education about a pr oper diet Last Documented On 3 10:53AM ; [facility] Discussed concerns about exe rcise : promote physical activity Last Documented On 3 10:53AM ; 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) Open Access - Established with Kb Pelaez CNP 10/17/2022 Last Documented On 3 8:20PM ; [facility] [R35.0 - Frequency of mictur ition] urinary frequency Open Access - Established with Kb Pelaez CNP 10/17/2022 Last Documented On 3 8:20PM ; [facility] [Z68.42 - Body mass index [B MA] 45.0-49.9, adult] assessment of body mass index was 47.2 kg/m2 Open Access - Established with Kb Pelaez CNP 10/17/2022 Last Documented On 3 8:20PM ; [facility] Intervention and counseling on cessation of tobacco use, 3-10 minutes Discussed medication and nicotine replacement for tobacco cessation Open Access - Established with Kb Pelaez JAROD 10/17/2022 Last Documented On 3 8:20PM ; [facility] Nicotine dependence Open Access - Established wi th Kb Pelaez JAROD 10/17/2022 Last Documented On 3 8:20PM ; [facility] Venipuncture was performed Open Access - Established with Kb Benigno OLIVERA 10/17/2022 Last Documented On 3 8:20PM ; [facility] [F17.200 - Nicotine dependen ce, unspecified, uncomplicated] nicotine dependence uncomplicated Medical Established Patient with Juanita Lewis PA-C 10/09/2022 Last Documented On 3 2:42PM ; [facility] [Z68.42 - Body mass index [B MA] 45.0-49.9, adult] assessment of body mass index Medical Established Patient with Juanita Mandydorf PA-C 10/09/2022 Last Documented On 3 2:42PM ; [facility] Classic migraine (with aura) with intractable migraine with status migrainosus Medical Established Patient with Juanita Mandydorf PA-C 10/09/2022 Last Documented On 3 2:42PM ; [facility] Iron deficiency anemia Medical Establish ed Patient with Juanita Mandydorf PA-C 10/09/2022 Last Documented On 3 2:42PM ; [facility] Prediabetes Medical Established Patient with Juanita Mandydorf PA-C 10/09/2022 Last Documented On 3 2:42PM ; [facility] [R73.03 - Prediabetes] prediabetes Open Access - Established with Juanita Galvandorf PA-C 09/18/2022 Last Documented On 3 2:31PM ; [facility] [Z68.42 - Body mass index [B MA] 45.0-49.9, adult] assessment of body mass index Open Access - Established with Juanita Galvandorf PA-C 09/18/2022 Last Documented On 3 2:31PM ; [facility] Classic migraine (with aura) with intractable migraine with status migrainosus Open Access - Established with Juanita Lewis PA-C 09/18/2022 Last Documented On 3 2:31PM ; [facility] [S80.12XD - Contusion of lef t lower leg, subsequent encounter] contusion with intact skin surface of left anterior lower leg Medical Established Patient with Juanita Hattendorf PA-C 05/27/2022 Last Documented On 3 4:00PM ; [facility] [Z68.42 - Body mass index [B MA] 45.0-49.9, adult] assessment of body mass index Medical Established Patient with Juanita Hattendorf PA-C 05/27/2022 Last Documented On 3 4:00PM ; [facility] Pain in lower leg Medical Established Patient wi Juanita Lewis PA-C 05/27/2022 Last Documented On 3 4:00PM ; [facility] Iron deficiency anemia Chart Update with Juanita Guanrf PA-C 05/21/2022 Last Documented On 3 4:12PM ; [facility] [E55.9 - Vitamin D deficienc y, unspecified] vitamin D deficiency Open Access - Established with Juanita Lewis PA-C 05/17/2022 Last Documented On 3 3:44PM ; [facility] [Z68.42 - Body mass index [B MA] 45.0-49.9, adult] assessment of body mass index Open Access - Established with Juanita Lewis PA-C 05/17/2022 Last Documented On 3 3:44PM ; [facility] Iron deficiency anemia Open Access - Est ablished with Juanita Jimeneztendomaico PA-C 05/17/2022 Last Documented On 3 3:44PM ; [facility] Organic sleep apnea Open Access - Established wi Juanita Lewis PA-C 05/17/2022 Last Documented On 3 3:44PM ; [facility] Primary snoring Open Access - Established with Harjinder Lewis PA-C 05/17/2022 Last Documented On 3 3:44PM ; [facility] Bipolar I disorder Established Patient with Jammie Martinez DELIVERY TABLE OPERATOR 04/29/2022 Last Documented On 3 11:36AM ; [facility] Nicotine dependence Established Patient with Odalys Martinez DELIVERY TABLE OPERATOR 04/29/2022 Last Documented On 3 11:36AM ; [facility] [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 adult medical examination with abnormal findings] routine history and physical Open Access New Patient with Juanita Lewis PA-C 04/29/2022 Last Documented On 3 1:03PM ; [facility] [Z68.42 - Body mass index [B MA] 45.0-49.9, adult] assessment of body mass index Open Access New Patient with Juanita Lewis PA-C 04/29/2022 Last Documented On 3 1:03PM ; [facility] Diabetes Risk Test Score was five score 04/29/2022 Open Access New Patient with Juanita Guanrf PA-C 04/29/2022 Last Documented On 3 1:03PM ; [facility] Recurrent pharyngitis streptococcus Open Access New Patient with Juanita Lewis PA-C 04/29/2022 Last Documented On 3 1:03PM ; [facility] Screening for Hep C Open Access New Patient with Juanita Guanrf PA-C 04/29/2022 Last Documented On 3 1:03PM ; [facility] Screening for HIV Open Access New Patient with Harjinder Lewis PA-C 04/29/2022 Last Documented On 3 1:03PM ; 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) Open Access - Established with Kb Pelaez 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 10/17/2022 Last Documented On 3 12:51PM ; [facility] [R35.0 - Frequency of mictur ition] urinary frequency Open Access - Established with Kb Pelaez 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 10/17/2022 Last Documented On 3 12:51PM ; [facility] [Z68.42 - Body mass index [B MA] 45.0-49.9, adult] assessment of body mass index was 47.2 kg/m2 Open Access - Established with Kb Pelaez 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 10/17/2022 Last Documented On 3 12:51PM ; [facility] Intervention and counseling on cessation of tobacco use, 3-10 minutes Discussed medication and nicotine replacement for tobacco cessation Open Access - Established with Kb Pelaez 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 10/17/2022 Last Documented On 3 12:51PM ; [facility] Nicotine dependence Open Access - Established wi Kb Pelaez 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 10/17/2022 Last Documented On 3 12:51PM ; [facility] Venipuncture was performed Open Access - Established with Kb Pelaez 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 10/17/2022 Last Documented On 3 12:51PM ; [facility] [F17.200 - Nicotine dependen ce, unspecified, uncomplicated] nicotine dependence uncomplicated Medical Established Patient with Juanita Lewis PA-C 10/09/2022 Last Documented On 3 2:42PM ; [facility] [Z68.42 - Body mass index [B MA] 45.0-49.9, adult] assessment of body mass index Medical Established Patient with Juanita Lewis PA-C 10/09/2022 Last Documented On 3 2:42PM ; [facility] Classic migraine (with aura) with intractable migraine with status migrainosus Medical Established Patient with Juanita Hattendorf PA-C 10/09/2022 Last Documented On 3 2:42PM ; [facility] Iron deficiency anemia Medical Establish ed Patient with Juanita Hattendorf PA-C 10/09/2022 Last Documented On 3 2:42PM ; [facility] Prediabetes Medical Established Patient with Juanita Hattendorf PA-C 10/09/2022 Last Documented On 3 2:42PM ; [facility] [R73.03 - Prediabetes] prediabetes Open Access - Established with Juanita Hatnadeemdorf PA-C 09/18/2022 Last Documented On 3 2:31PM ; [facility] [Z68.42 - Body mass index [B MA] 45.0-49.9, adult] assessment of body mass index Open Access - Established with Juanita Hattendorf PA-C 09/18/2022 Last Documented On 3 2:31PM ; [facility] Classic migraine (with aura) with intractable migraine with status migrainosus Open Access - Established with Juanita Hattendorf PA-C 09/18/2022 Last Documented On 3 2:31PM ; [facility] [S80.12XD - Contusion of lef t lower leg, subsequent encounter] contusion with intact skin surface of left anterior lower leg Medical Established Patient with Juanita Mandydorf PA-C 05/27/2022 Last Documented On 3 4:00PM ; [facility] [Z68.42 - Body mass index [B MA] 45.0-49.9, adult] assessment of body mass index Medical Established Patient with Juanita Hattendorf PA-C 05/27/2022 Last Documented On 3 4:00PM ; [facility] Pain in lower leg Medical Established Patient wi th Juanita Mandydorf PA-C 05/27/2022 Last Documented On 3 4:00PM ; [facility] Iron deficiency anemia Chart Update with Juanita Lewis PA-C 05/21/2022 Last Documented On 3 4:12PM ; [facility] [E55.9 - Vitamin D deficienc y, unspecified] vitamin D deficiency Open Access - Established with Juanita Lewis PA-C 05/17/2022 Last Documented On 3 3:44PM ; [facility] [Z68.42 - Body mass index [B MA] 45.0-49.9, adult] assessment of body mass index Open Access - Established with Juanita Lewis PA-C 05/17/2022 Last Documented On 3 3:44PM ; [facility] Iron deficiency anemia Open Access - Est ablished with Juanita Lewis PA-C 05/17/2022 Last Documented On 3 3:44PM ; [facility] Organic sleep apnea Open Access - Established wi th Juanita Guanmaico PA-C 05/17/2022 Last Documented On 3 3:44PM ; [facility] Primary snoring Open Access - Established with Harjinder barlow Barbaranadeemchip PA-C 05/17/2022 Last Documented On 3 3:44PM ; [facility] Bipolar I disorder Established Patient with Jammie SMITH 04/29/2022 Last Documented On 3 11:36AM ; [facility] Nicotine dependence Established Patient with Odalys SMITH 04/29/2022 Last Documented On 3 11:36AM ; [facility] [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 adult medical examination with abnormal findings] routine history and physical Open Access New Patient with Juanita Lewis PA-C 04/29/2022 Last Documented On 3 1:03PM ; [facility] [Z68.42 - Body mass index [B MA] 45.0-49.9, adult] assessment of body mass index Open Access New Patient with Juanita Lewis PA-C 04/29/2022 Last Documented On 3 1:03PM ; [facility] Diabetes Risk Test Score was five score 04/29/2022 Open Access New Patient with Juanita Lewis PA-C 04/29/2022 Last Documented On 3 1:03PM ; [facility] Recurrent pharyngitis streptococcus Open Access New Patient with Juanita Lewis PA-C 04/29/2022 Last Documented On 3 1:03PM ; [facility] Screening for Hep C Open Access New Patient with Juanita Lewis PA-C 04/29/2022 Last Documented On 3 1:03PM ; [facility] Screening for HIV Open Access New Patient with Harjinder Lewis PA-C 04/29/2022 Last Documented On 3 1:03PM ; [facility] Work Phone: 1([phone]) [phone] Progress note* Progress note Date Encounter Last Documented by 10/17/2022 Open Access - Established Last d ocumented on 10/17/2022; 8:20 PM, Kb Pelaez CNP; [facility] Active Problems & Conditions - F31.9 [...] 7 miscarriages, completed work-up with PCP and [facility]. Leaves for [place] on Friday for work Current Medication - [...] days, 2 refills - Vitamin D (Ergocalciferol) 44523 UNIT Oral Capsule 0 days, 0 refills [...] BP-Sitting L106/60 mmHg BP Cuff SizeLarge Pulse Rate-Axmiarn40 bpm Pulse RhythmRegular Respiration Rate22 per min Temp-Oral98.3 F Uxbkmp15 in Uymcpt573 lbs 6.4 oz Body Mass Index47.2 kg/m2 Body Surface Area2.4 m2 Oxygen Kiqqubuzyo53 % O2 DeviceNone (Room Air) CvK222 % Vital Signs: - Systolic blood pressure [...] Leukocyte Estrase Negative. Blood Trace Non-Hemolyzed, Specific [place] 1.030, and pH 6.0. Urine clarity Cloudy [...] - Number of attempts for venipuncture two [facility]08-31-2023 Progress note* Progress note Date Encounter Last Documented by 10/17/2022 Open Access - Established Last d ocumented on 10/18/2022; 12:51 PM, Kb Pelaez CNP; [facility] Active Problems & Conditions - F31.9 [...] 7 miscarriages, completed work-up with PCP and [employer]. Leaves for [place] on Friday for work Current Medication - [...] days, 2 refills - Vitamin D (Ergocalciferol) 66496 UNIT Oral Capsule 0 days, 0 refills [...] BP-Sitting L106/60 mmHg BP Cuff SizeLarge Pulse Rate-Brxoffd80 bpm Pulse RhythmRegular Respiration Rate22 per min Temp-Oral98.3 F Zrrdwh72 in Odvfxf164 lbs 6.4 oz Body Mass Index47.2 kg/m2 Body Surface Area2.4 m2 Oxygen Bklgqnnczg37 % O2 DeviceNone (Room Air) NeW724 % Vital Signs: - Systolic blood pressure [...] Leukocyte Estrase Negative. Blood Trace Non-Hemolyzed, Specific [place] 1.030, and pH 6.0. Urine clarity Cloudy [...] - Number of attempts for venipuncture two [facility]08-31-2023 Progress note* Progress note Date Encounter Last Documented by 10/17/2022 Open Access - Established Last d ocumented on 10/18/2022; 12:51 PM, Kb Pelaez CNP; [facility] Active Problems & Conditions - F31.9 [...] 7 miscarriages, completed work-up with PCP and [employer] [facility]. Leaves for [place] on Friday for work Current Medication - [...] days, 2 refills - Vitamin D (Ergocalciferol) 45344 UNIT Oral Capsule 0 days, 0 refills [...] BP-Sitting L106/60 mmHg BP Cuff SizeLarge Pulse Rate-Dwrpmkc29 bpm Pulse RhythmRegular Respiration Rate22 per min Temp-Oral98.3 F Cgwkom22 in Bnxvkr132 lbs 6.4 oz Body Mass Index47.2 kg/m2 Body Surface Area2.4 m2 Oxygen Adqrrgewig08 % O2 DeviceNone (Room Air) [id number] % Vital Signs: - Systolic blood pressure [...] Leukocyte Estrase Negative. Blood Trace Non-Hemolyzed, Specific [place] 1.030, and pH 6.0. Urine clarity Cloudy [...] - Number of attempts for venipuncture two [facility]08-31-2023 Progress note* Progress note Date Encounter Last Documented by 10/17/2022 Open Access - Established Last d ocumented on 10/18/2022; 12:51 PM, Kb Pelaez; [facility] Active Problems & Conditions - F31.9 [...] 7 miscarriages, completed work-up with PCP and [facility]. Leaves for [place] on Friday for work Current Medication - [...] days, 2 refills - Vitamin D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 Access - Established with Juanita Lewis PA-C 04/09/2023 Last Documented On 4 10:53AM ; [facility] Bipolar I disorder Open Access - Established wit h Juanita Lewis PA-C 04/09/2023 Last Documented On 4 10:53AM ; [facility] Consent form on file for pro cedure :Nexplanon Open Access - Established with Juanita Lewis PA-C 04/09/2023 Last Documented On 4 10:53AM ; [facility] Intervention and counseling on cessation of tobacco use, 3-10 minutes Discussed medication and nicotine replacement for tobacco cessation Open Access - Established with Juanita Lewis PA-C 04/09/2023 Last Documented On 4 10:53AM ; [facility] Iron deficiency anemia Open Access - Est ablished with Juanita Lewis PA-C 04/09/2023 Last Documented On 4 10:53AM ; [facility] Nexplanon Implant placed Pat ient is [...] 04/09/2023 Last Documented On 4 10:53AM ; [facility] Nexplanon Implant Wound Care : Patient [...] 04/09/2023 Last Documented On 4 10:53AM ; [facility] Prediabetes Open Access - Established with Harjinder Lewis PA-C 04/09/2023 Last Documented On 4 10:53AM ; [facility] Bipolar I disorder BH Established Patient with Dixon SALGADO 01/24/2023 Last Documented On 3 9:45PM ; [facility] [G47.30 - Sleep apnea, unspe cified] organic sleep apnea Medical Established Patient with Juanita Lewis PA-C 01/24/2023 Last Documented On 3 10:48AM ; [facility] [Z68.42 - Body mass index [B MA] 45.0-49.9, adult] assessment of body mass index was 46.3 kg/m2 Medical Established Patient with Juanita Guanrf PA-C 01/24/2023 Last Documented On 3 10:48AM ; [facility] Classic migraine with aura w ith intractable migraine with status migrainosus Medical Established Patient with Juanita Guanrf PA-C 01/24/2023 Last Documented On 3 10:48AM ; [facility] Mild persistent asthma with exacerbation Medical Established Patient with Juanita Galvandorf PA-C 01/24/2023 Last Documented On 3 10:48AM ; [facility] [Z02.1 - Encounter for pre-e mployment examination] routine pre-employment screening examination Open Access - Established with Juanita Lewis PA-C 11/29/2022 Last Documented On 3 4:45PM ; [facility] [Z11.1 - Encounter for miguel angel marcus for respiratory tuberculosis] visit for: screening for pulmonary tuberculosis Open Access - Established with Juanita Lewis PA-C 11/29/2022 Last Documented On 3 4:45PM ; [facility] [Z68.42 - Body mass index [B MA] 45.0-49.9, adult] assessment of body mass index Open Access - Established with Juanita Lewis PA-C 11/29/2022 Last Documented On 3 4:45PM ; [facility] Encounter for Immunization Open Access - Established with Juanita Lewis PA-C 11/29/2022 Last Documented On 3 4:45PM ; [facility] Prediabetes Open Access - Established with Harjinder Lewis PA-C 11/29/2022 Last Documented On 3 4:45PM ; [facility] [Z68.42 - Body mass index [B MA] 45.0-49.9, adult] assessment of body mass index Open Access - Established with Juanita Lewis PA-C 11/05/2022 Last Documented On 3 12:38PM ; [facility] Acute serous otitis media of left ear Open Access - Established with Juanita Lewis PA-C 11/05/2022 Last Documented On 3 12:38PM ; [facility] [J02.9 - Acute pharyngitis, unspecified] acute pharyngitis Open Access - Established with Kb Pelaez 10/17/2022 Last Documented On 3 12:51PM ; [facility] [J11.1 - Influenza due to un identified influenza virus with other respiratory manifestations] influenza with URI Open Access - Established with Kb Pelaez 10/17/2022 Last Documented On 3 12:51PM ; [facility] [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) Open Access - Established with Kb Pelaez 10/17/2022 Last Documented On 3 12:51PM ; [facility] [R35.0 - Frequency of mictur ition] urinary frequency Open Access - Established with Kb Pelaez 10/17/2022 Last Documented On 3 12:51PM ; [facility] [Z68.42 - Body mass index [B MA] 45.0-49.9, adult] assessment of body mass index was 47.2 kg/m2 Open Access - Established with Kb Pelaez 10/17/2022 Last Documented On 3 12:51PM ; [facility] Intervention and counseling on cessation of tobacco use, 3-10 minutes Discussed medication and nicotine replacement for tobacco cessation Open Access - Established with Kb Pelaez 10/17/2022 Last Documented On 3 12:51PM ; [facility] Nicotine dependence Open Access - Established wi th Kb Pelaez 10/17/2022 Last Documented On 3 12:51PM ; [facility] Venipuncture was performed Open Access - Establi shed with Kb Pelaez 10/17/2022 Last Documented On 3 12:51PM ; [facility] [F17.200 - Nicotine dependen ce, unspecified, uncomplicated] nicotine dependence uncomplicated Medical Established Patient with Juanita Galvandorf PA-C 10/09/2022 Last Documented On 3 2:42PM ; [facility] [Z68.42 - Body mass index [B MA] 45.0-49.9, adult] assessment of body mass index Medical Established Patient with Juanita Hattendorf PA-C 10/09/2022 Last Documented On 3 2:42PM ; [facility] Classic migraine (with aura) with intractable migraine with status migrainosus Medical Established Patient with Juanita Hattendorf PA-C 10/09/2022 Last Documented On 3 2:42PM ; [facility] Iron deficiency anemia Medical Establish ed Patient with Ujanita Hattendorf PA-C 10/09/2022 Last Documented On 3 2:42PM ; [facility] Prediabetes Medical Established Patient with Juanita Hattendorf PA-C 10/09/2022 Last Documented On 3 2:42PM ; [facility] [R73.03 - Prediabetes] prediabetes Open Access - Established with Juanita Hattendorf PA-C 09/18/2022 Last Documented On 3 2:31PM ; [facility] [Z68.42 - Body mass index [B MA] 45.0-49.9, adult] assessment of body mass index Open Access - Established with Juanita Hattendorf PA-C 09/18/2022 Last Documented On 3 2:31PM ; [facility] Classic migraine (with aura) with intractable migraine with status migrainosus Open Access - Established with Juanita Hattendorf PA-C 09/18/2022 Last Documented On 3 2:31PM ; [facility] [S80.12XD - Contusion of lef t lower leg, subsequent encounter] contusion with intact skin surface of left anterior lower leg Medical Established Patient with Juanita Hattendorf PA-C 05/27/2022 Last Documented On 3 4:00PM ; [facility] [Z68.42 - Body mass index [B MA] 45.0-49.9, adult] assessment of body mass index Medical Established Patient with Juanita Hattendorf PA-C 05/27/2022 Last Documented On 3 4:00PM ; [facility] Pain in lower leg Medical Established Patient wi th Juanita Lewis PA-C 05/27/2022 Last Documented On 3 4:00PM ; [facility] Iron deficiency anemia Chart Update with Juanita Galvanchip PA-C 05/21/2022 Last Documented On 3 4:12PM ; [facility] [E55.9 - Vitamin D deficienc y, unspecified] vitamin D deficiency Open Access - Established with Juanita Jimenezjoann PA-C 05/17/2022 Last Documented On 3 3:44PM ; [facility] [Z68.42 - Body mass index [B MA] 45.0-49.9, adult] assessment of body mass index Open Access - Established with Juanita Lewis PA-C 05/17/2022 Last Documented On 3 3:44PM ; [facility] Iron deficiency anemia Open Access - Est ablished with Juanita Guanmaico PA-C 05/17/2022 Last Documented On 3 3:44PM ; [facility] Organic sleep apnea Open Access - Established wi th Juanita Galvanchip PA-C 05/17/2022 Last Documented On 3 3:44PM ; [facility] Primary snoring Open Access - Established with Harjinder kimanimakayla Joshua PA-C 05/17/2022 Last Documented On 3 3:44PM ; [facility] Bipolar I disorder Established Patient with N lavonne SMITH 04/29/2022 Last Documented On 3 11:36AM ; [facility] Nicotine dependence Established Patient with Odalys SMITH 04/29/2022 Last Documented On 3 11:36AM ; [facility] [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 adult medical examination with abnormal findings] routine history and physical Open Access New Patient with Juanita Lewis PA-C 04/29/2022 Last Documented On 3 1:03PM ; [facility] [Z68.42 - Body mass index [B MA] 45.0-49.9, adult] assessment of body mass index Open Access New Patient with Juanita Lewis PA-C 04/29/2022 Last Documented On 3 1:03PM ; [facility] Diabetes Risk Test Score was five score 04/29/2022 Open Access New Patient with Juanita Guanrf PA-C 04/29/2022 Last Documented On 3 1:03PM ; [facility] Recurrent pharyngitis streptococcus Open Access New Patient with Juanita Guanrf PA-C 04/29/2022 Last Documented On 3 1:03PM ; [facility] Screening for Hep C Open Access New Patient with Juanita Guanrf PA-C 04/29/2022 Last Documented On 3 1:03PM ; [facility] Screening for HIV Open Access New Patient with Harjinder Lewis PA-C 04/29/2022 Last Documented On 3 1:03PM ; [facility] Work Phone: Evaluation note Includes: Assessments for all patient encounters Findings Encounter Date Bipolar disorder NOS Established Patient with Odalys Martinez DELIVERY TABLE OPERATOR 04/23/2023 Last Documented On 4 12:14PM ; [facility] Nicotine dependence Established Patient with Odalysyenifer Martinez DELIVERY TABLE OPERATOR 04/23/2023 Last Documented On 4 12:14PM ; [facility] [Z68.42 - Body mass index [B MA] 45.0-49.9, adult] assessment of body mass index was 45.3 kg/m2 Medical Established Patient with Juanita Guanrf PA-C 04/23/2023 Last Documented On 4 11:53AM ; [facility] Bipolar I disorder Medical Established Patient w jose Lewis PA-C 04/23/2023 Last Documented On 4 11:53AM ; [facility] Nicotine dependence continuous Medical E stablished Patient with Juanita Lewis PA-C 04/23/2023 Last Documented On 4 11:53AM ; [facility] Bipolar I disorder BH Established Patient with Dixon Moran DELIVERY TABLE OPERATOR-S 04/09/2023 Last Documented On 4 4:48PM ; [facility] Intervention and counseling on cessation of tobacco use, 3-10 minutes Discussed medication and nicotine replacement for tobacco cessation BH Established Patient with Kristin Moran DELIVERY TABLE OPERATOR-S 04/09/2023 Last Documented On 4 4:48PM ; [facility] Nicotine dependence BH Established Patient with Kristin Moran DELIVERY TABLE OPERATOR-S 04/09/2023 Last Documented On 4 4:48PM ; [facility] [Z68.42 - Body mass index [B MA] 45.0-49.9, adult] assessment of body mass index Open Access - Established with Juanita MORALES-Blair 04/09/2023 Last Documented On 4 10:53AM ; [facility] Assessment of initial prescr iption of implantable subdermal contraceptive Open Access - Established with Juanita Lewis PA-C 04/09/2023 Last Documented On 4 10:53AM ; [facility] Bipolar I disorder Open Access - Established wit h Juanita MORALES-Blair 04/09/2023 Last Documented On 4 10:53AM ; [facility] Consent form on file for pro cedure :Nexplanon Open Access - Established with Juanita MORALES-Blair 04/09/2023 Last Documented On 4 10:53AM ; [facility] Intervention and counseling on cessation of tobacco use, 3-10 minutes Discussed medication and nicotine replacement for tobacco cessation Open Access - Established with Juanita MORALES-Blair 04/09/2023 Last Documented On 4 10:53AM ; [facility] Iron deficiency anemia Open Access - Est ablished with Juanita MORALES-Blair 04/09/2023 Last Documented On 4 10:53AM ; [facility] Nexplanon Implant placed Dai judgent is being seen today for Nexplanon insertion [...] 04/09/2023 Last Documented On 4 10:53AM ; [facility] Nexplanon Implant Wound Care : Patient [...] 04/09/2023 Last Documented On 4 10:53AM ; [facility] Prediabetes Open Access - Established with Harjinder Lewis PA-C 04/09/2023 Last Documented On 4 10:53AM ; [facility] Bipolar I disorder BH Established Patient with Dixon steven Dean DELIVERY TABLE OPERATOR-S 01/24/2023 Last Documented On 3 9:45PM ; [facility] [G47.30 - Sleep apnea, unspe cified] organic sleep apnea Medical Established Patient with Juanita Mandydorf PA-C 01/24/2023 Last Documented On 3 10:48AM ; [facility] [Z68.42 - Body mass index [B MA] 45.0-49.9, adult] assessment of body mass index was 46.3 kg/m2 Medical Established Patient with Juanita Barbaratendorf PA-C 01/24/2023 Last Documented On 3 10:48AM ; [facility] Classic migraine with aura w ith intractable migraine with status migrainosus Medical Established Patient with Juanita Hattendorf PA-C 01/24/2023 Last Documented On 3 10:48AM ; [facility] Mild persistent asthma with exacerbation Medical Established Patient with Juanita Hattendorf PA-C 01/24/2023 Last Documented On 3 10:48AM ; [facility] [Z02.1 - Encounter for pre-e mployment examination] routine pre-employment screening examination Open Access - Established with Juanita Guanrf PA-C 11/29/2022 Last Documented On 3 4:45PM ; [facility] [Z11.1 - Encounter for miguel angel marcus for respiratory tuberculosis] visit for: screening for pulmonary tuberculosis Open Access - Established with Juanita Mandydorf PA-C 11/29/2022 Last Documented On 3 4:45PM ; [facility] [Z68.42 - Body mass index [B MA] 45.0-49.9, adult] assessment of body mass index Open Access - Established with Juanita Mandydorf PA-C 11/29/2022 Last Documented On 3 4:45PM ; [facility] Encounter for Immunization Open Access - Established with Juanita Mandydorf PA-C 11/29/2022 Last Documented On 3 4:45PM ; [facility] Prediabetes Open Access - Established with Harjinder Lewis PA-C 11/29/2022 Last Documented On 3 4:45PM ; [facility] [Z68.42 - Body mass index [B MA] 45.0-49.9, adult] assessment of body mass index Open Access - Established with Juanita MORALES-Blair 11/05/2022 Last Documented On 3 12:38PM ; [facility] Acute serous otitis media of left ear Open Access - Established with Juanita MORALES-Blair 11/05/2022 Last Documented On 3 12:38PM ; [facility] [J02.9 - Acute pharyngitis, unspecified] acute pharyngitis Open Access - Established with Kb Pelaez 10/17/2022 Last Documented On 3 12:51PM ; [facility] [J11.1 - Influenza due to un identified influenza virus with other respiratory manifestations] influenza with URI Open Access - Established with Kb Pelaez 10/17/2022 Last Documented On 3 12:51PM ; [facility] [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) Open Access - Established with Kb Pelaez 10/17/2022 Last Documented On 3 12:51PM ; [facility] [R35.0 - Frequency of mictur ition] urinary frequency Open Access - Established with Kb Pelaez 10/17/2022 Last Documented On 3 12:51PM ; [facility] [Z68.42 - Body mass index [B MA] 45.0-49.9, adult] assessment of body mass index was 47.2 kg/m2 Open Access - Established with Kb Pelaez 10/17/2022 Last Documented On 3 12:51PM ; [facility] Intervention and counseling on cessation of tobacco use, 3-10 minutes Discussed medication and nicotine replacement for tobacco cessation Open Access - Established with Kb Pelaez 10/17/2022 Last Documented On 3 12:51PM ; [facility] Nicotine dependence Open Access - Established wi th Kb Pelaez 10/17/2022 Last Documented On 3 12:51PM ; [facility] Venipuncture was performed Open Access - Establi shed with Kb Pelaez 10/17/2022 Last Documented On 3 12:51PM ; [facility] [F17.200 - Nicotine dependen ce, unspecified, uncomplicated] nicotine dependence uncomplicated Medical Established Patient with Juanita Hattendorf PA-C 10/09/2022 Last Documented On 3 2:42PM ; [facility] [Z68.42 - Body mass index [B MA] 45.0-49.9, adult] assessment of body mass index Medical Established Patient with Juanita Hattendorf PA-C 10/09/2022 Last Documented On 3 2:42PM ; [facility] Classic migraine (with aura) with intractable migraine with status migrainosus Medical Established Patient with Juanita Hattendorf PA-C 10/09/2022 Last Documented On 3 2:42PM ; [facility] Iron deficiency anemia Medical Establish ed Patient with Juanita Hattendorf PA-C 10/09/2022 Last Documented On 3 2:42PM ; [facility] Prediabetes Medical Established Patient with Juanita Hattendorf PA-C 10/09/2022 Last Documented On 3 2:42PM ; [facility] [R73.03 - Prediabetes] prediabetes Open Access - Established with Juanita Hattendorf PA-C 09/18/2022 Last Documented On 3 2:31PM ; [facility] [Z68.42 - Body mass index [B MA] 45.0-49.9, adult] assessment of body mass index Open Access - Established with Juanita Hattendorf PA-C 09/18/2022 Last Documented On 3 2:31PM ; [facility] Classic migraine (with aura) with intractable migraine with status migrainosus Open Access - Established with Juanita Hattendorf PA-C 09/18/2022 Last Documented On 3 2:31PM ; [facility] [S80.12XD - Contusion of lef t lower leg, subsequent encounter] contusion with intact skin surface of left anterior lower leg Medical Established Patient with Juanita Lewis PA-C 05/27/2022 Last Documented On 3 4:00PM ; [facility] [Z68.42 - Body mass index [B MA] 45.0-49.9, adult] assessment of body mass index Medical Established Patient with Juanita Galvanchip PA-C 05/27/2022 Last Documented On 3 4:00PM ; [facility] Pain in lower leg Medical Established Patient wi th Juanita Galvanchip PA-C 05/27/2022 Last Documented On 3 4:00PM ; [facility] Iron deficiency anemia Chart Update with Juanita Guanmaico PA-C 05/21/2022 Last Documented On 3 4:12PM ; [facility] [E55.9 - Vitamin D deficienc y, unspecified] vitamin D deficiency Open Access - Established with Juanita Jimenezjoann PA-C 05/17/2022 Last Documented On 3 3:44PM ; [facility] [Z68.42 - Body mass index [B MA] 45.0-49.9, adult] assessment of body mass index Open Access - Established with Juanita Galvanchip PA-C 05/17/2022 Last Documented On 3 3:44PM ; [facility] Iron deficiency anemia Open Access - Est ablished with Juanita Mandychip PA-C 05/17/2022 Last Documented On 3 3:44PM ; [facility] Organic sleep apnea Open Access - Established wi th Juanita Galvanchip PA-C 05/17/2022 Last Documented On 3 3:44PM ; [facility] Primary snoring Open Access - Established with Harjinder MORALES-C 05/17/2022 Last Documented On 3 3:44PM ; [facility] Bipolar I disorder Established Patient with Jammie Martinez DELIVERY TABLE OPERATOR 04/29/2022 Last Documented On 3 11:36AM ; [facility] Nicotine dependence Established Patient with Odalys MÁRQUEZW 04/29/2022 Last Documented On 3 11:36AM ; [facility] [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 adult medical examination with abnormal findings] routine history and physical Open Access New Patient with Juanita Lewis PA-C 04/29/2022 Last Documented On 3 1:03PM ; [facility] [Z68.42 - Body mass index [B MA] 45.0-49.9, adult] assessment of body mass index Open Access New Patient with Juanita Lewis PA-C 04/29/2022 Last Documented On 3 1:03PM ; [facility] Diabetes Risk Test Score was five score 04/29/2022 Open Access New Patient with Juanita Lewis PA-C 04/29/2022 Last Documented On 3 1:03PM ; [facility] Recurrent pharyngitis streptococcus Open Access New Patient with Juanita Lewis PA-C 04/29/2022 Last Documented On 3 1:03PM ; [facility] Screening for Hep C Open Access New Patient with Juanita Lewis PA-C 04/29/2022 Last Documented On 3 1:03PM ; [facility] Screening for HIV Open Access New Patient with Harjinder Lewis PA-C 04/29/2022 Last Documented On 3 1:03PM ; [facility] Work Phone: Evaluation note Includes: Assessments for all patient encounters Findings Encounter Date Bipolar disorder NOS Established Patient with Odalys SMITH 04/23/2023 Last Documented On 4 12:14PM ; [facility] Nicotine dependence Established Patient with Odalys MÁRQUEZW 04/23/2023 Last Documented On 4 12:14PM ; [facility] [Z68.42 - Body mass index [B MA] 45.0-49.9, adult] assessment of body mass index was 45.3 kg/m2 Medical Established Patient with Juanita Barbaratendorf PA-C 04/23/2023 Last Documented On 4 1:33PM ; [facility] Bipolar I disorder Medical Established Patient w ith Juanita Hattendorf PA-C 04/23/2023 Last Documented On 4 1:33PM ; [facility] Classic migraine with aura w ith intractable migraine with status migrainosus Medical Established Patient with Juanita Hattendorf PA-C 04/23/2023 Last Documented On 4 1:33PM ; [facility] Nicotine dependence continuous Medical E stablished Patient with Juanita Hattendorf PA-C 04/23/2023 Last Documented On 4 1:33PM ; [facility] Bipolar I disorder Established Patient with Dixon Moran DELIVERY TABLE OPERATOR-S 04/09/2023 Last Documented On 4 4:48PM ; [facility] Intervention and counseling on cessation of tobacco use, 3-10 minutes Discussed medication and nicotine replacement for tobacco cessation Established Patient with Kristin Moran DELIVERY TABLE OPERATOR-S 04/09/2023 Last Documented On 4 4:48PM ; [facility] Nicotine dependence Established Patient with Kristin Moran DELIVERY TABLE OPERATOR-S 04/09/2023 Last Documented On 4 4:48PM ; [facility] [Z68.42 - Body mass index [B MA] 45.0-49.9, adult] assessment of body mass index Open Access - Established with Juanita Lewis PA-C 04/09/2023 Last Documented On 4 10:53AM ; [facility] Assessment of initial prescr iption of implantable subdermal contraceptive Open Access - Established with Juanita Lewis PA-C 04/09/2023 Last Documented On 4 10:53AM ; [facility] Bipolar I disorder Open Access - Established wit h Juanita Lewis PA-C 04/09/2023 Last Documented On 4 10:53AM ; [facility] Consent form on file for pro cedure :Nexplanon Open Access - Established with Juanita Lewis PA-C 04/09/2023 Last Documented On 4 10:53AM ; [facility] Intervention and counseling on cessation of tobacco use, 3-10 minutes Discussed medication and nicotine replacement for tobacco cessation Open Access - Established with Juanita Lewis PA-C 04/09/2023 Last Documented On 4 10:53AM ; [facility] Iron deficiency anemia Open Access - Est ablished with Juanita Lewis PA-C 04/09/2023 Last Documented On 4 10:53AM ; [facility] Nexplanon Implant placed Pat ient is [...] 04/09/2023 Last Documented On 4 10:53AM ; [facility] Nexplanon Implant Wound Care : Patient [...] symptom Open Access - Established with Juanita Galvandorf PA-C 04/09/2023 Last Documented On 4 10:53AM ; [facility] Prediabetes Open Access - Established with Harjinder barlow Hattendorf PA-C 04/09/2023 Last Documented On 4 10:53AM ; [facility] Bipolar I disorder BH Established Patient with Dixon SMITH-S 01/24/2023 Last Documented On 3 9:45PM ; [facility] [G47.30 - Sleep apnea, unspe cified] organic sleep apnea Medical Established Patient with Juanita Hattendorf PA-C 01/24/2023 Last Documented On 3 10:48AM ; [facility] [Z68.42 - Body mass index [B MA] 45.0-49.9, adult] assessment of body mass index was 46.3 kg/m2 Medical Established Patient with Juanita Hattendorf PA-C 01/24/2023 Last Documented On 3 10:48AM ; [facility] Classic migraine with aura w ith intractable migraine with status migrainosus Medical Established Patient with Juanita Barbaratendorf PA-C 01/24/2023 Last Documented On 3 10:48AM ; [facility] Mild persistent asthma with exacerbation Medical Established Patient with Juanita Hattendorf PA-C 01/24/2023 Last Documented On 3 10:48AM ; [facility] [Z02.1 - Encounter for pre-e mployment examination] routine pre-employment screening examination Open Access - Established with Juanita Galvandorf PA-C 11/29/2022 Last Documented On 3 4:45PM ; [facility] [Z11.1 - Encounter for miguel angel marcus for respiratory tuberculosis] visit for: screening for pulmonary tuberculosis Open Access - Established with Juanita Barbarajoann PA-C 11/29/2022 Last Documented On 3 4:45PM ; [facility] [Z68.42 - Body mass index [B MA] 45.0-49.9, adult] assessment of body mass index Open Access - Established with Juanita Mandychip PA-C 11/29/2022 Last Documented On 3 4:45PM ; [facility] Encounter for Immunization Open Access - Established with Juanita Lewis PA-C 11/29/2022 Last Documented On 3 4:45PM ; [facility] Prediabetes Open Access - Established with Harjinder Lewis PA-C 11/29/2022 Last Documented On 3 4:45PM ; [facility] [Z68.42 - Body mass index [B MA] 45.0-49.9, adult] assessment of body mass index Open Access - Established with Juanita Lewis PA-C 11/05/2022 Last Documented On 3 12:38PM ; [facility] Acute serous otitis media of left ear Open Access - Established with Juanita Mandychip PA-C 11/05/2022 Last Documented On 3 12:38PM ; [facility] [J02.9 - Acute pharyngitis, unspecified] acute pharyngitis Open Access - Established with Kb Pelaez 10/17/2022 Last Documented On 3 12:51PM ; [facility] [J11.1 - Influenza due to un identified influenza virus with other respiratory manifestations] influenza with URI Open Access - Established with Kb Ray 10/17/2022 Last Documented On 3 12:51PM ; [facility] [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) Open Access - Established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
[2024-11-24 21:22] VITALS: BP 131/88; PULSE 85; TEMP 36.9; O2SAT 99; BMI 46.3
--- NOTE | 2024-11-24 21:30 | XR_ITS ---
The [address] [address] Patient Name: CYNDEE HURT MRN: [facility]:[id number] date: 1995 Sex: F Assigned Patient Location: ER Current Patient Location: ED.MAIN Accession/Order Number: [id number] Exam Date: 11/24/2024 21:35 Report Date: 11/24/2024 22:08 At the request of: PATEL GALAVIZ Procedure: XR chest 2V PA AND LATERAL CHEST: CLINICAL HISTORY: cough COMPARISON: 03/03/2017 FINDINGS: Unremarkable cardiomediastinal silhouette. Lungs are clear. No effusion or pneumothorax. XR/XR chest 2V IMPRESSION: NO ACUTE CARDIOPULMONARY ABNORMALITY. Impression dictated by: Luis Manuel Mcdaniels M.D. 11/24/2024 10:08 PM Dictation Location: [place] [address] Electronically authenticated by: [id number] Y Date: 11/24/2024 22:08
--- NOTE | 2024-11-24 21:31 | ED_ITS ---
Documented by User: Soraya Davison 11/24/24 22:03 HPI - URI/Sore Throat General Chief Complaint: Upper Respiratory Infection Stated Complaint: Upper Respiratory Infection Time Seen by Provider: 11/24/24 21:27 Source: patient Limitations: no limitations History of Present Illness HPI Narrative: 29 year old female presents to the ED for a productive cough. Onset was one month ago. Reports chest congestion. Denies fever, chills, SOB. Denies sinus congestion/drainage, sore throat, N/V. The cough is not worse at night. She has not tried anything for symptoms. Related Data Home Medications ?Medication ?Instructions ?Recorded ?Confirmed No Known Home Medications 11/24/2410/11 Allergies Allergy/AdvReac Type Severity Reaction Status Date / Time codeine Allergy Severe Anaphylaxis Verified 11/24/24 21:22 metformin Allergy Severe Anaphylaxis Verified 11/24/24 21:22 methocarbamol Allergy Severe Anaphylaxis Verified 11/24/24 21:22 ketorolac (From Toradol) Allergy Mild Rash Verified 11/24/24 21:22 Review of Systems ROS Constitutional Denies: fever or chills Ears, nose, mouth, and throat Denies: throat pain, nasal discharge or nasal congestion Cardiovascular Denies: chest pain Respiratory Reports: cough; Denies: shortness of breath Gastrointestinal Denies: abdominal pain, nausea or vomiting PFSH PFSH Social History Little interest or pleasure in doing things: not at all Feeling down, depressed, or hopeless: not at all Exam Constitutional Vital Signs, click to edit/add: Last Vital Signs Temp 98.4 F 11/24/24 21:22 Pulse 85 11/24/24 21:22 Resp 19 11/24/24 21:22 BP 131/88 11/24/24 21:22 Pulse Ox 99 11/24/24 21:22 O2 Del Method Room Air 11/24/24 21:22 HENMT Common normals: moist oral mucous membranes Throat: posterior oropharynx normal Eye Common normals: conjunctivae normal and no scleral icterus Neck & C-Spine Common normals: supple Chest Chest: symmetrical chest wall rise Respiratory Common normals: normal respiratory effort and clear to auscultation bilaterally Effort & inspection: able to speak in complete sentences and symmetric chest movement Cardio Common normals: regular rate and regular rhythm Neuro Common normals: oriented x3 and moves all extremities Sensorium/orientation: awake and alert Course Vital Signs Vital signs: Vital Signs Temperature 98.4 F 11/24/24 21:22 Pulse Rate 85 11/24/24 21:22 Respiratory Rate 19 11/24/24 21:22 Blood Pressure 131/88 11/24/24 21:22 Pulse Oximetry 99 11/24/24 21:22 Oxygen Delivery Method Room Air 11/24/24 21:22 Temperature 98.4 F 11/24/24 21:22 Pulse Rate 85 11/24/24 21:22 Respiratory Rate 19 11/24/24 21:22 Blood Pressure 131/88 11/24/24 21:22 Pulse Oximetry 99 11/24/24 21:22 Oxygen Delivery Method Room Air 11/24/24 21:22 MDM - URI/Sore Throat MDM Narrative Medical decision making narrative: Chest x-ray was pending. She was given Zyrtec and Tessalon perles in the ED. Care was resumed to Dr. Jolly. See her dictation for further evaluation and treatment. Differential Diagnosis Differential diagnosis: Likely upper respiratory infection, viral infection and other (chronic cough) Medical Records Attestation: I reviewed the patient's medical records. Lab Data Attestation: I reviewed the patient's lab results. Imaging Data Chest x-ray: Radiologist's impression: ITS Impressions Chest X-Ray 11/24/24 21:30 IMPRESSION: NO ACUTE CARDIOPULMONARY ABNORMALITY. Impression dictated by: Luis Manuel Mcdaniels M.D. 11/24/2024 10:08 PM [facility] Electronically authenticated by: [id number] Y Date: 11/24/2024 22:08 Discharge Plan Discharge Chief Complaint: Upper Respiratory Infection Clinical Impression: Cough Patient Disposition: Home, Self-Care Time of Disposition Decision: 22:18 Condition: Good Prescriptions / Home Meds: No Action No Known Home Medications Print Language: Mauritanian Instructions: Upper Respiratory Infection (ED) Referrals: Physician,Non-Staff, MD [Primary Care Provider] - 1 week Documented by User: Kirsten Jolly MD 11/24/24 22:25 HPI - URI/Sore Throat General Chief Complaint: Upper Respiratory Infection Stated Complaint: Upper Respiratory Infection Time Seen by Provider: 11/24/24 21:27 Related Data Home Medications ?Medication ?Instructions ?Recorded ?Confirmed No Known Home Medications 11/24/24 1010/11 Allergies Allergy/AdvReac Type Severity Reaction Status Date / Time codeine Allergy Severe Anaphylaxis Verified 11/24/24 21:22 metformin Allergy Severe Anaphylaxis Verified 11/24/24 21:22 methocarbamol Allergy Severe Anaphylaxis Verified 11/24/24 21:22 ketorolac (From Toradol) Allergy Mild Rash Verified 11/24/24 21:22 PFSH PFSH Social History Little interest or pleasure in doing things: not at all Feeling down, depressed, or hopeless: not at all Exam Constitutional Vital Signs, click to edit/add: Last Vital Signs Temp 98.4 F 11/24/24 21:22 Pulse 85 11/24/24 21:22 Resp 19 11/24/24 21:22 BP 131/88 11/24/24 21:22 Pulse Ox 99 11/24/24 21:22 O2 Del Method Room Air 11/24/24 21:22 Course Vital Signs Vital signs: Vital Signs Temperature 98.4 F 11/24/24 21:22 Pulse Rate 85 11/24/24 21:22 Respiratory Rate 19 11/24/24 21:22 Blood Pressure 131/88 11/24/24 21:22 Pulse Oximetry 99 11/24/24 21:22 Oxygen Delivery Method Room Air 11/24/24 21:22 Temperature 98.4 F 11/24/24 21:22 Pulse Rate 85 11/24/24 21:22 Respiratory Rate 19 11/24/24 21:22 Blood Pressure 131/88 11/24/24 21:22 Pulse Oximetry 99 11/24/24 21:22 Oxygen Delivery Method Room Air 11/24/24 21:22 MDM - URI/Sore Throat MDM Narrative Medical decision making narrative: Chest x-ray was pending. She was given Zyrtec and Tessalon perles in the ED. Care was resumed to Dr. Jolly. See her dictation for further evaluation and treatment. This 29-year-old female with a history of vape use presents for evaluation of a productive cough for the past month. She does not have a history of asthma. Her vital signs are stable. She is not hypoxic. Her lungs are clear. X-ray of the chest was read by radiology and is negative for acute findings. She was medicated emergency department with a dose of Zyrtec and Tessalon Perles. She does not have any chest pain or shortness of breath. I suggested she quit vaping. She smiled but does not appear to be interested in that. She will be discharged home with a Medrol Dosepak and prescription for Bromfed-DM. She is otherwise stable with no fever, upper respiratory symptoms abdominal pain, back pain or lower extremity pain or swelling. Imaging Data Chest x-ray: Radiologist's impression: ITS Impressions Chest X-Ray 11/24/24 21:30 IMPRESSION: NO ACUTE CARDIOPULMONARY ABNORMALITY. Impression dictated by: Luis Manuel Mcdaniels M.D. 11/24/2024 10:08 PM Dictation Location: [place] [address] Electronically authenticated by: [id number] Y Date: 11/24/2024 22:08 Discharge Plan Discharge Chief Complaint: Upper Respiratory Infection Clinical Impression: Cough Patient Disposition: Home, Self-Care Time of Disposition Decision: 22:18 Condition: Good Prescriptions / Home Meds: No Action No Known Home Medications Print Language: Mauritanian Instructions: Upper Respiratory Infection (ED) Referrals: Physician,Non-Staff, MD [Primary Care Provider] - 1 week
[2024-11-24] MEDS: BENZONATATE 100 MG CAPSULE 200 MG PO (21:52)
[2024-11-24] MEDS: CETIRIZINE HCL 10 MG TABLET PO (21:53)
== END 2024-11-24 22:30 | disposition home or self-care (01) ==
PROVIDERS: Emergency Provider Emergency Medicine
DX: R05.9 Cough, unspecified (principal); F17.290 Nicotine dependence, other tobacco product, uncomplicated
CPT/HCPCS: 71046; 99283

== ENCOUNTER 2024-12-18 12:32 | Emergency (ER) | payer OTHER, SELFPAY ==
--- OUTSIDE RECORDS SUMMARY | 2023-11-24 06:40 | XMS_ITS ---
Author Organization [facility] Address [address] [place] [address] Care Team Providers Care Pharmacognosist Name Role Phone Ari Cam Unavailable [phone] REASON FOR VISIT LEFT KNEE PAIN Encounters Encounter Location Date Provider Diagnosis [facility] Office [address] [place] [address] [address] [place] [address] 11/24/2023 Ari Cam Plan Of Treatment No Information Progress Notes * CYNDEE HURTDOB: [birth year] (29 yo F)Acc No.[id number]:11/24/2023 Patient:?BLU CYNDEE :?Ari Cam MDDOB:1995???Age:28 Y ???Sex:FemaleDate:4Phone:[phone]:[address] [place], [place] [phone] Subjective: * Chief Complaints: * 1 . LEFT KNEE PAIN. * Medical History: Objective: * Vitals: Assessment: Plan: * Treatment: Forms: * Images: * Electronic signature of Ari Cam MD on 12/18/2024 at 12:41 PM EDTSign off status: Pending * Provider: Harjinder Cam MD Date: 1 Generated for Printing/Faxing/eTransmitting on:?12/18/2024 12:41 PM EDT
--- OUTSIDE RECORDS SUMMARY | 2024-08-12 05:35 | XMS_ITS | Continuity of Care Document ---
Author Organization [facility] Address [address] [place] [address] Phone Care Team Providers Care Bit Bender Name Role Phone Henrykirti Roscoe FIGUEROA Unavailable Unavailable Allergies, Adverse Reactions, Alerts Substance Reaction Status Criticality milk Active No Information metformin Hives / Skin Rash Active No Informa tion KETOROLAC TROMETHAMINE Anaphylaxis Active No In formation methocarbamol Hives / Skin Rash Active No Inform ation codeine Anaphylaxis Active No Information Medications Medication Instructions Dosage Effective Dates (start - stop) Status Comments Wegovy 0.5 mg/0.5 mL subcutaneous pen injector inject (0.5MG) by subcutaneous route every week on the same day of each week 0.5 MG - Active topiramate 25 mg tablet take 1 tablet by oral route every night - Active ondansetron [address] 1 tablet by translingual route 2 times every day on top of the tongue where they will dissolve, then swallow 4 MG - Active prazosin 1 mg capsule take 1 capsule by oral route every night - Active oxcarbazepine ER 300 mg tablet,extended release 24 hr take 1 tablet by oral route 2 times every day on an empty stomach, 1 hour before or 2 hours after a meal 300 MG - Active spironolactone 50 mg tablet take 1 tablet by oral route every day 50 MG - Active Effexor XR 75 mg capsule,extended release take 1 capsule by oral route every day with food 75 MG - Active trazodone 50 mg tablet take 1 tablet by oral route every day at bedtime 50 MG - Active Symbicort 160 mcg-4.5 mcg/actuation HFA aerosol inhaler inhale 2 puff by inhalation route 2 times every day in the morning and evening 2.00 puff - Active sumatriptan 50 mg tablet take 1 tablet by oral route at onset of migraine; may repeat after 2 hours if headache returns,not to exceed 200mg in 24hrs - Active Procedures Procedure Date UA Dipstick OFFICE/OUTPATIENT VISIT, EST THER/PROPH/DIAG INJ, SC/IM OFFICE/OUTPATIENT VISIT, EST Methylprednisolone (Depo Medrol) 1 mg in j No Charge TB INTRADERMAL TEST OFFICE/OUTPATIENT VISIT, EST PREV VISIT, NEW, AGE 18-39 Advance Directives Directive Yes / No Effective Date File Name No Information Encounters Encounter Description Practice Location Reason(s) For Visit Diagnoses Date Provider Providers Copied on Encounter [facility], [address] [place] [address], [facility], tel: [phone] [facility] [employer] No Information 5 Chi Malhotra. [address] [place], [place], [id number] , [place]. tel: [phone] [facility], [address] [address], [facility], tel: [phone] [facility] [employer] No Information 5 Chi Malhotra. [address], [place], [place], [id number] , [place]. tel: [phone] [facility], [address] [address], [facility], tel: [phone] [facility] [employer] No Information 5 Chi Malhotra. [address], [place], [place], [id number] , [place]. tel: [phone] [facility], [address] [address], [facility], [place] tel: [phone] [facility] [place] No Information 5 Chi Malhotra. [address], [place], [place], [id number] , [place]. tel: [phone] [facility], [address] [place] [address], [facility], [place] tel: [phone] [facility] [place] Nausea 5 Chi Malhotra. [address], [place], [place], [id number] , [place]. tel: [phone] OFFICE/OUTPA TIENT VISIT, [facility], [address] [place] [address], [facility], [place] tel: [phone] [facility] [place] PCOS (chief complaint)d ysuria (chief complaint) Urinary tract infection in femalePCOS (polycystic ovarian syndrome)Prediabetes Obesity, class 3Screening for cervical cancer 5 Chi Malhotra. [address], [place], [place], [id number] , [place]. tel: [phone] Referring Provider: [place], [address] . tel:[phone] [facility], [address] [place] [address], [facility], [place] tel: [phone] [facility] [place] No Information 4 Chi Malhotra. [address], [place], [place], [id number] , [place]. tel: [phone] OFFICE/OUTPA TIENT VISIT, [facility], [address] [address], [facility], [place] tel: [phone] [facility] [place] Left lower quadrant pain (chief complaint) PCOS (polycystic ovarian syndrome)Acute abdominal pain 4 Chi Malhotra. [address], [place], [place], [id number] , [place]. tel: [phone] Referring Provider: Edison [place], [address] . tel:[phone] [facility], [address] [address], [facility], [place] tel: [phone] [facility] [place] TB read (chief complaint) No Information 4 Margaux Hsu. [address] [place], [place], [id number] , [place]. tel: [phone] Referring Provider: Edison [place], [address] . tel:[phone] [facility], [address] [place] [address], [facility], tel: [phone] [facility] TB test (chief complaint) Tuberculosis screening 4 Angela Conklin. [address] [place], [place], [id number] , [place]. tel: [phone] Referring Provider: [place], [address] . tel:[phone] OFFICE/OUTPA TIENT VISIT, EST [facility], [address] [place] [address], [facility], [place] tel: [phone] [facility] lump in left breast (chief complaint)c hronic conditions (chief complaint) Mass of upper outer quadrant of left breastAnxietyPTSD (post-traumatic stress disorder) 4 Chi Malhotra. [address], [place], [id number] , [place]. tel: [phone] Referring Provider: Kim [address] [place], [address] . tel:[phone] PREV VISIT, NEW, AGE 18-39 [facility], [address] [place] [address], [facility], [place] tel: [phone] [facility] [place] Physical (chief complaint) Body mass index [BMI] 45.0-49.9, adultExercise counselingNutritiona l counselingAnnual wellness visitFamily history of diabetes mellitusFamily history of hypothyroidism Chi Malhotra. [address] [place], [place], [id number] , [place]. tel: [phone] Referring Provider: Katerin Miller, [address] [place], [address] . tel:[phone] Family History Family Member Type Diagnosis Age At Onset No Information Immunizations Vaccine Date Status Comments Influenza IIV4 (Inject) administered Sour ce: Other Registry Payers Payer name Insurance type Covered republican ID Authoriza tion(s) No Information Social History Type Description Quantity Date Captured Comments Alcohol Use Details Unknown Caffeine Use Details Unknown Tobacco Use Status Smoking Status No Information Sex Female Gender Identity Female Chief Complaint And Reason For Visit No Information Reason For Referral Reason For Referral No Information Plan Of Treatment Date Type Action Status Goal Lifestyle education regardin g diet completed Referral Ordered: Breast Ultrasound; Unilateral; Complete Left [id number] EducationA Healthy Lifestyle: Care Instructions completed History Of Present Illness Encounter Date Complaint History Of Prese nt Illness PCOS Additional infor mation: Has not had an episode of cyst bursting since starting the new med. Wanting to get labs done, full lab work up. Mention her BUN was low Has got a bruise from our BP cuff at every last visit. did have med changed. Comments: She fe els like the spironolactone is helping. She has not had any significant pain since starting. She was curious about ozempic as a help weight loss and help with managing her PCOS. She has started exercising 3 times per week. She has made diet changes cutting out sodas. Comments: It has been going on for about a week. It resolved for a day then returned on Friday. dysuria Additional infor mation: Burning with urination, frequency and odor. started about a week ago, was starting to get better but came back.. Left lower quadrant pain ER FU- 01/03/24 and 01/12/24. states she had a ovarian cyst that popped on her left side and now hurts on her right. Comments: She guido s a history of PCOS, thinks this is related to her PCOS. She did get some Motrin at the ED but didn't feel like it helped much. She has not had bad flares of this previously. In the past, hot baths, Motrin, Tylenol, heating pads, hot wash clothes have helped in the past but not this time. TB read Patient is here to have her TB test read which was placed on 01-07-24. TB skin test read Left Forearm 0mm of induration negative test see document. Patient given copy of result. TB test pt is here for a TB test today. Comments: Found it Friday, it is in the left breast, it is painful to the touch. There is no redness, changes to the skin, no dimpling. Her grandmother was diagnosed with Breast Cancer in her 70s. She remembers some other family members might have breast cancer on her mothers side but doesn't remember who or the age of diagnosis. She noticed some white drainage from the nipple for about 3 months, longer than noticing the lump. lump in left breast states she f ound a lump in her left breast and is causing pain. states she found this on Friday. chronic conditions *See Chronic Conditions HPI Comments: She pr esented today to establish care. She has some concerns about diabetes and thyroid disease as she has it run in her family. She has a history of Bipolar, PTSD, and anxiety. She is getting establish with [facility] for a therapist tomorrow. There is a family history heart disease, cervical cancer, breast cancer. She had an abnormal pap last year. She has the nexplanon for her control and she is a . Physical Additional infor mation: She is wanting to get a full work up. She would like her sugars checked. She went to the eye doctor and they found little leaks in blood vessels caused by high sugars. Also wants thyroid checked runs in family. . Functional Status Date Functional Assessmen t No Information Instructions Date Instruction Additional Infor agnes PAP Smear completed in office to day Related to Screening for cervical cancer Start semaglutide 0. 25 mg weekly to help with weight loss, prediabetesContinue lifestyle modifications with healthy diet and fresh fruits and vegetables, lean meats and proteins, limit processed foodsContinue Increased physical activity with a goal of 150 minutes of exercise weekly Related to Prediabetes Start Nitrofurantoin 100 mg BIDKeep hydratedReturn to clinic if symptoms worsen Related to Urinary tract infection in female Continue Spironolact one 50 mg dailyContinue hot baths, heating pads as neededContinue working on lifestyle changes with a healthy diet and exercise Related to PCOS (polycystic ovarian syndrome) Start Spironolactone 50 mg bidDepo-medrol injection in clinic todayUse scheduled ibuprofen and Tylenol for the next 2-3 days, then use it as needed afterContinue hot baths, heating pads as neededContinue working on lifestyle changes with a healthy diet and exerciseFollow-up in 1-2 months for PCOS Related to PCOS (polycystic ovarian syndrome) Obtain left breast u ltrasoundReturn if you notice the lump increasing in size or there is changes in symptoms such as increased pain, redness to the skinFollow-up as scheduled Related to Mass of upper outer quadrant of left breast Refilled Effexor and trazodone R elated to Anxiety Overall you are doin g well continue your health journeyObtain A1c due to family history of diabetesObtain TSH due to family history of hypothyroidismFollow-up in 1 month for well women exam Related to Annual wellness visit Lifestyle education regarding di et Related to Body mass index [BMI] 45.0-49.9, adult Giving encouragement to exercise Related to Body mass index [BMI] 45.0-49.9, adult Assessments Type Assessment Date No Information Patient Care Teams Name Effective Dates (start - stop) Status Members No Information
[2024-12-18 12:36] VITALS: BP 142/86; PULSE 85; TEMP 36.8; O2SAT 100; BMI 46.3
--- OUTSIDE RECORDS SUMMARY | 2024-12-18 12:41 | XMS_ITS | Patient Health Record ---
Author Organization [facility] Address [address] [place] [address] Care Team Providers Care Maintainer [employer] Name Role Phone Ari Cam Unavailable [phone] Reason For Referral No Information Medications Medication SIG (Take, Route, Frequency, Duration) Notes Start Date End Date Status Trileptal ActivelithiumActiveprazosinActiveEffexorActive Social History Tobacco Use: Social History Observation Description Date Details (start date - stop date) Current Smoker NA - NA Smoking History Question Answer Notes Smoking Status Current Smoker Problems Problem Type SNOMED Code ICD Code Onset Dates Problem Status W/U Status Risk Notes Problem Tear of lateral meniscus of left knee (S83.282A)ActiveconfirmedProblemPain of left knee region (finding) (735137782063937)Left knee pain, unspecified chronicity (M25.562)Activeconfirmed Plan Of Treatment No Information Insurance Providers Payer Name Payer Address Payer Phone Subscriber Number Group Number Insured Name Patient Relationship to Insured Coverage Start Date Coverage End Date Medicaid [place] [address] [place] [address] [id number] CYNDEE HURTSelf - patient is the insured Medical (General) History Surgical History Surgery Date(Month/Year) Rotator cuff repair 11/12/2016
--- OUTSIDE RECORDS SUMMARY | 2024-12-18 12:41 | XMS_ITS | CCD ---
Author Organization [facility] Care Team Providers Care Dressmaker Helper Name Role Phone ENOCH-VICENTE, AMELIAAM A Unavailable [...] Provider Nicole Rocha MD Primary Care Provider [phone] Johana Ayala MD Primary Care Provider Johana Ayala MD Primary Care Provider [phone] UNKNOWN, PHYSICIAN Primary Care Unavailable SELF, REFERRED [...] Provider Kb Pelaez CNP Primary Care Provider [phone] Kb Pelaez CNP Attending Unavailable Heather HARTLEY, Johana Abrams Attending Sayra Lewis PA-C, [facility] Primary Care Provider [facility] Provider Juanita Major Primary Care Provider VERENICE LLANES Attending Unavailable MARIO ALBERTOVERENICE PROCTOR Attending Unavailable [facility] Referring Unavailable [facility] Primary Care Unavailable JESSICA AGUSTIN Referring Unavailable [facility], AMJAD Primary Care Unavailable DREAD FUENTES Referring Unavailabl e JAMIE, AMD Primary Care Unavailable SRAVANTHI BAL Referring Unavailable [facility] Primary Care Unavailable ODALYS MOORE Referring Unavailable [facility] Primary Care Unavailable [facility] Referring Unavailable [facility] Primary Care Unavailable KB PELAEZ Referring Unavailable [facility] Primary Care Unavailable RAYKB Referring Unavailable [facility] Primary Care Unavailable Robbi KERNSS, Tazflaquita Unavailable [phone] [facility], JUANITA E Referring Unavailable [facility] E Primary Care Unavailable KIRSTEN BLANDON Attending Unavailable [facility] E Referring Unavailable [facility] E Primary Care Unavailable ROSALIE COX Attending Unavailable POLINA FLOWERS Attending Unavailable [facility] E Referring Unavailable [facility] E Primary Care Unavailable [facility] Primary Care Physician Unavailab EMMIE Jacobsen Attending Unavaila YEISON Mccracken Primary Care Unavailable JEREMY, ANNA S Consulting Unavailable EMMIE GLYNN Admitting Unavaila richar [facility] Primary Care Unavailable JANNETH KUMAR [place] [phone] Atte nding Unavailable Anup PRINCE Referring Unavailable YEISON SWANSON Attending Unavailable YEISON SWANSON Attending Unavailable YEISON SWANSON Attending Unavailable YEISON SWANSON Attending Unavailable Flakito Armendariz Attending Unavailable [facility] Juanita HARTLEY Primary Care Provider Allergies Allergy ClassificationReported Allergen(s)Allergy TypeDate of OnsetReaction(s) FacilityCabbage preparation (5 sources)Cabbage preparationDrug Wmutrse61-95-9101AwytxVeryi HealthLatex (5 sources)LatexSubstance Cjrtmxu56-04-7061HjotUfwdr HealthmetFORMIN (5 sources)metFORMINDrug Uncybax58-78-5292XfzcwZokne HealthOpioid Agonists (5 sources)CodeineDrug Zohmxyd76-75-7884Dcmsi Healthtomato allergenic extract (5 sources)tomato allergenic extractDrug Owihyvw14-84-2970EgcakmhcqlzWfrwp Health (19 sources)Cabbage preparation; Translations: [cabbage]Drug Qunegka67-35-2132 AnaphylaxisThe [facility] (19 sources)metFORMIN; Translations: [metFORMIN]Drug Lmnglvf42-20-5174 An[facility]axisGrand [facility] (20 sources)Cabbage preparationDrug Cdluhkn62-47-1191CyqzyZqxbr Health- [place], [place] (20 sources)Latex; Translations: [Latex]Propensity to adverse reactions to drug 82-97-7605EokmNnnuz [place], [place] (20 sources)metFORMIN; Translations: [metformin]Drug Spjbsdf65-09-8871Uryof, [place]aphylaxisMerP[place], [place] (20 sources)Ridley Flavor; Translations: [ridley flavor]Propensity to adverse reactions to yoyr48-29-2228VupbxmbgwjDqvxjtsaj [facility] (20 sources)Eggs Or Egg-Derived ProductsPropensity to adverse reactions to drug 30-02-6687Nzrnqq And VomitingMerPleasanton, [place] (20 sources)Flavoring Agent; Translations: [FLAVORING AGENT]Propensity to adverse reactions to kllb06-74-0338Wapxb, [place], [place] (20 sources)Nutritional Supplements; Translations: [NUTRITIONAL SUPPLEMENTS] Propensity to adverse reactions to dtlb61-10-4618QrkfaSppxjLeitchfield, [place] (20 sources)Codeine; Translations: [codeine]Drug Dwpyghn84-78-4539Crxfjtobyej, Eruption of skin (disorder), [place], [place] (2 sources)egg extractDrug Szpmjne10-42-7548SwaovzevkipYxqynczzvMercy Health [facility] (6 sources)GRAPEFRUIT EXTRACT; Translations: [grapefruit]Drug Fecgkqq72-14-6707 [facility] (1 source)LactoseDrug Hefsnlj06-15-5677YuaiebWcalsotudGuernsey Memorial Hospital (20 sources)Ketorolac; Translations: [KETOROLAC TROMETHAMINE]Drug Allergy 76-73-6966JrepkPvywi Health (20 sources)tomato allergenic extract; Translations: [TOMATO]Drug Allergy 88-34-4416QesppigooxtMzeht Health (1 source)CodeineDrug Azqzhyk17-99-9396Jbn [facility] Repository (17 sources)Ketorolac; Translations: [Toradol]Drug Xkczxxf03-52-7614Lcmj Rashes / Eruption of skinThe [facility] Repository (1 source)multiple foods; Translations: [multiple foods]Propensity to adverse reactions (disorder)13-40-2938Cjp [facility] Repository (16 sources)tomatoes; Translations: [Tomatoes]Allergy to -98-[address] [facility] (11 sources)Methocarbamol; Translations: [methocarbamol]Drug Eklhzfo73-37-0003 [facility] (14 sources)ridley allergenic extractDrug Nilnqqk02-13-9109Hzuj Rashes / Eruption of skinHealth [facility] (14 sources)GRAPEFRUIT EXTRACTDrug Jjnuzqt78-91-7886DnrdcuhhwfeYlbdjm [facility] (14 sources)Lactose (non-medical use)Allergy to qaldeiscb52-01-9469GejxdaRpmstp [facility] (1 source)Egg; Translations: [eggs]Propensity to adverse reactions to food (disorder)[facility] Repository (4 sources)Lactose (non-medical use)Propensity to adverse reactions to drug 37-36-9506Aysiqa OnlyIN[facility] (2 sources)Ketorolac; Translations: [KETOROLAC]Drug Mdkjvwx09-22-5297Puou (disorder)[facility] Repository (4 sources)metFORMIN; Translations: [metFORMIN HCl 1000 MG Oral Tablet]Drug Duhmase10-41-7483Vddiuh [facility] (3 sources)Methocarbamol; Translations: [Robaxin 100 MG/ML Injection Solution] Drug Ugkgnls22-71-0945Muik Rashes / Eruption of skinHealth [facility] (2 sources)Shellfish; Translations: [SHELLFISH DERIVED]Propensity to adverse reactions to food (disorder)87-61-5613Meisxi SwellingProMedica Repository (3 sources)EGG DERIVED; Translations: [EGG DERIVED]Propensity to adverse reactions to food (disorder)18-94-4046DeciyckyfrfMbxSqftfl Repository (1 source)glyBURIDE / metFORMIN; Translations: [glyburide-metformin]Drug Allergy [facility] Repository (1 source)No Known Medication Allergies; Translations: [No Known Medication Allergies]Propensity to adverse reactions (disorder)[facility] Repository Medications Current Medications MedicationDrug Class(es)DatesSig (Normalized)Sig (Original)acetaminophen 500 mg oral tablet (20 sources)Start: 05-27-2022 End: 44-18-7918Vyroabxdwgrsr 500 MG Oral Tablet 04/09/2023 Provider: Juanita MORALES-CStart: 19-49-7832bhiy 2 tablets by mouth every six hours as needed for painacetaminophen (TYLENOL) 500 MG tablet Take 2 tablets by mouth every 6 hours as needed for Pain 360 tablet 0 12/24/2021 ActiveStart: 12-24-2021 acetaminophen (TYLENOL) tablet 650 mgStart: 94-02-5285fcnj 2 tablets by mouth four times daily as needed for painacetaminophen (TYLENOL) 500 MG tablet Take 2 tablets by mouth 4 times daily as needed for Pain 20 tablet 0 03/20/2021 Active Start: 07-28-6686aebrwtmueinmt (TYLENOL) tablet 1,000 mgStart: 01-28-2021 End: 66-18-3621qcwj 1 tablet by mouth three times daily as needed for pain acetaminophen (TYLENOL) 500 MG tablet Take 1 tablet by mouth 3 times daily as needed for Pain or Fever 20 tablet 0 01/28/2021 03/20/2021 Discontinued (LIST CLEANUP)Start: 81-74-3159sejeeddhmbgnw (TYLENOL) tablet 1,000 mgStart: 01-09-2021 End: 96-95-4811eooo 1 tablet by mouth twice daily as needed for pain acetaminophen (TYLENOL) 500 MG tablet Take 1 tablet by mouth 2 times daily as needed for Pain or Fever 20 tablet 0 01/09/2021 01/28/2021 Discontinued (REORDER)Start: 82-57-6021qdcxafnsgflqd (TYLENOL) tablet 1,000 mgStart: 08-25-2020 End: 87-45-4108nuhb 2 tablets by mouth every six hours as needed for pain acetaminophen (TYLENOL) 325 MG tablet Take 2 tablets by mouth every 6 hours as needed for Pain 60 tablet 0 08/25/2020 01/09/2021 Discontinued (LIST CLEANUP) Start: 11-29-2019 End: 71-20-5469xfef 2 tablets by mouth every eight hours as needed for pain acetaminophen (TYLENOL) 500 MG tablet Take 2 tablets by mouth every 8 hours as needed for Pain or Fever 30 tablet 0 12/17/2019 01/09/2021 Discontinued (LIST CLEANUP)albuterol 0.83 mg/ml inhalation solution (20 sources)beta2-Adrenergic AgonistStart: 90-87-4759arif 3 mL by inhalation every six hours as needed for wheezingalbuterol (PROVENTIL,VENTOLIN) 2.5 mg /3 mL (0.083 %) nebulizer solution Indications: Asthma with acute exacerbation, unspecified asthma severity, unspecified whether persistent Inhale 3 mL (2.5 mg total) by nebulization every 6 (six) hours as needed for wheezing. 75 mL 0 01/22/2023 ActiveStart: 32-63-2441gkng 1-2 puff(s) by inhalation every six hours as needed for wheezingalbuterol (PROVENTIL HFA;VENTOLIN HFA) 90 mcg/actuation inhaler Indications: Asthma with acute exacerbation, unspecified asthma severity, unspecified whether persistent Inhale 1-2 puffs every 6 (six)hours as needed for wheezing. 18 g 0 01/22/2023 ActiveStart: 71-90-0921Hbvegmasq Sulfate HFA 108 (90 Base) MCG/ACT Inhalation Aerosol Solution 12/06/2022 Provider:Start: 14-83-1061ejru 2 puff(s) by inhalation four times daily as needed for wheezing albuterol sulfate HFA (VENTOLIN HFA) 108 (90 Base) MCG/ACT inhaler Inhale 2 puffs into the lungs 4 times daily as needed for Wheezing 1 each 1 05/07/2021 ActiveStart: 82-40-8693pcin 2 puff(s) by inhalation four times daily as needed for wheezingalbuterol sulfate HFA (VENTOLIN HFA) 108 (90 Base) MCG/ACT inhaler Inhale 2 puffs into the lungs 4 times daily as needed for Wheezing 3 Inhaler 0 09/01/2020 ActiveStart: 05-11-2019 End: 39-78-5597Uukioxgiv Sulfate Discontinued 2 INH INHALATION every 6 to 8 hours May 11, 2019 12:00am June 28, 2019 8:31pmStart: 20-05-7129acem 1 puff(s) by inhalation every six hours as needed for wheezingAlbuterol Sulfate [Ventolin Hfa] 2 PUFF Inhalation Q6H PRN For Shortness Of Breath Or Wheezing 1 September 30, 2018 ActiveStart: 98-50-3875bemr 1 puff(s) by inhalation every six hours as needed for wheezingAlbuterol Sulfate 2 PUFF Inhalation Q6H PRN For Shortness Of Breath Or Wheezing 1 September 30, 2018 ActiveStart: 09-30-2018 End: 95-88-3967wqtw 1 puff(s) by inhalation every six hoursAlbuterol Sulfate (Ventolin Hfa) 90 mcg/actuation Hfa Aerosol Inhaler Discontinued 2 PUFF INHALATION Q6H September 30, 2018 12:00am May 19, 2020 2:39pmStart: 10-31-2017 End: 59-23-1696uylr 1 puff(s) by inhalation twice dailyAlbuterol Sulfate 2 PUFF Inhalation Twice daily October 31, 2017 DiscontinuedStart: 10-31-2017 End: 85-19-1228plyl 1 puff(s) by inhalation twice dailyAlbuterol Sulfate 2 PUFF Inhalation Twice daily October 31, 2017 September 26, 2018 DiscontinuedStart: 10-31-2017 End: 48-92-0782srjb 1 puff(s) by inhalation twice dailyAlbuterol Sulfate Discontinued 2 PUFF INHALATION Twice daily October 31, 2017 12:00am September 26, 2018 10:16amamoxicillin 875 mg / clavulanate 125 mg oral tablet (20 sources)Penicillin-class AntibacterialStart: 02-26-2023 End: 93-89-7702tfhi 1 tablet by mouth once in the morningamoxicillin-pot clavulanate (AUGMENTIN) 875-125 mg per tablet Indications: Acute bilateral otitis media Take 1 tablet by mouth in the morning and 1 tablet before bedtime. Do all this for 7 days. 14 tablet 0 02/26/2023 03/05/2023 ActiveStart: 11-05-2022 End: 40-31-8161Ilhqhzljtws-Pot Clavulanate 875-125 MG Oral Tablet 11/05/2022 - 11/29/2022 Provider: Juanita MORALES-CStart: 04-29-2022 End: 12-85-9500Vgywptvfmoq-Pot Clavulanate 500-125 MG Oral Tablet 04/29/2022 - 05/17/2022 Provider:Start: 12-16-2021 End: 95-31-1692oeou 1 tablet by mouth twice dailyamoxicillin-clavulanate (AUGMENTIN) 875-125 MG per tablet Take 1 tablet by mouth 2 times daily for 7 days 14 tablet 0 12/16/2021 12/23/2021 ActiveStart: 12-16-2021 End: 48-94-9055fhueuhgqacm-clavulanate (AUGMENTIN) 875-125 MG per tablet 1 tabletaspirin 81 mg chewable tablet (2 sources)Platelet Aggregation Inhibitor, Nonsteroidal Anti-inflammatory Drug Start: 08-87-1656vluqnre chewable tablet 324 mgStart: 11-28-2019 End: 69-44-2297msfxnqo 81 MG chewable tabletazithromycin 250 mg oral tablet (2 sources)Macrolide AntimicrobialStart: 12-01-2019 End: 56-78-9900gplbkyrqslpo (ZITHROMAX Z-CORDELIA) 250 MG tablet Indications: Cough , Acute upper respiratory infectionTake 2 tablets (500 mg) on Day 1, and then take 1 tablet (250 mg) on days 2 through 5. 1 packet 0 12/01/2019 12/05/2019 Active Start: 12-01-2019 End: 63-66-9295btxuyevnmrmw (ZITHROMAX) tablet 500 mgbenzonatate 100 mg oral capsule (4 sources)Non-narcotic AntitussiveStart: 10-31-2022 End: 44-63-0449zrcu 1 capsule by mouth three times daily as needed for cough benzonatate (TESSALON PERLES) 100 MG capsule Take 1 capsule by mouth 3 times daily as needed for Cough 30 capsule 0 10/31/2022 11/07/2022 ActiveStart: 11-29-2019 End: 87-22-0623pyshxydbpor (TESSALON) capsule 100 mgblood-glucose meter kit (2 sources)Start: 93-64-3612qzfsc-glucose meter kit Indications: Type 2 diabetes mellitus without complication, without long-term current use of insulin ([facility]) Use as instructed 1 each 0 07/02/2021 Activebrompheniramine maleate 0.4 mg/ml / dextromethorphan hydrobromide 2 mg/ml / pseudoephedrine hydrochloride 6 mg/ml oral solution (3 sources)alpha-Adrenergic Agonist, Uncompetitive O-aistka-K-aspartate Receptor Antagonist, Sigma-1 AgonistStart: 02-05-2023 End: 30-42-2708tgpq 10 mL by mouth four times daily as needed for cough xwuctijwgdcyzsq-rjmphtixa-DL 2-30-10 mg/5 mL syrup Take 10 mL by mouth 4 (four) times a day as needed for allergies, cough or congestion. 120 mL 0 02/26/2023 Unxvmk04 actuat budesonide 0.16 mg/actuat / formoterol fumarate 0.0045 mg/actuat metered dose inhaler (11 sources)Corticosteroid, beta2-Adrenergic AgonistStart: 01-24-2023 End: 90-98-7566Alwufovtu 160-4.5 MCG/ACT Inhalation Aerosol 04/09/2023 Provider: Juanita Lewis PA-CStart: 59-44-7870sjdp 2 puff(s) by mouth twice daily SYMBICORT 160-4.5 mcg/actuation inhaler INHALE TWO puffs BY MOUTH TWICE DAILY. RINSE MOUTH AFTER USE. 0 01/24/2023 Activebupivacaine hydrochloride 2.5 mg/ml injectable solution (2 sources)Amide Local AnestheticStart: 97-79-5544zvsbjjsyash (MARCAINE) 0.25 % injection 5 mgbusPIRone hydrochloride 10 mg oral tablet (2 sources)Start: 59-36-2169ndxIBWhjx (BUSPAR) 10 MG tablet Take 15 mg by mouth 2 times daily 0 04/07/2018 Activecephalexin 500 mg oral capsule (10 sources)Cephalosporin AntibacterialStart: 06-19-2021 End: 16-92-1911aejh 1 capsule by mouth four times dailycephALEXin (KEFLEX) 500 MG capsule Take 1 capsule by mouth 4 times daily for 7 days 28 capsule 0 04/202106/26/2021 ActiveStart: 10-11-2020 End: 10-09-0518diff 1 capsule by mouth four times dailycephALEXin (KEFLEX) 500 MG capsule Take 1 capsule by mouth 4 times daily for 7 days 27 capsule 0 10/18/2020 ActiveStart: 09-08-2020 End: 47-03-5993gnjz 1 capsule by mouth four times dailycephALEXin (KEFLEX) 500 MG capsule Take 1 capsule by mouth 4 times daily for 7 days 28 capsule 0 09/15/2020 ActiveStart: 09-08-2020 End: 24-67-3073mujhBMZFqp (KEFLEX) capsule 500 mgStart: 04-23-2020 End: 41-92-6259kxfl 1 capsule by mouth twice dailycephALEXin (KEFLEX) 500 MG capsule Take 1 capsule by mouth 2 times daily for 7 days 14 capsule 0 04/23/2020 04/30/2020 ActiveStart: 09-30-2018 End: 62-17-7939ojbf 500 mg by mouth every six hoursCephalexin 500 MG Oral Every 6 hours September 30, 2018 Activecholecalciferol 2000 unt oral capsule (5 sources)Vitamin DStart: 34-80-6231lfty 1 capsule by mouth once daily Cholecalciferol 2000 units CAPS Take 2,000 Units by mouth daily 0 03/10/2018 ActiveStart: 11-06-2017 End: 56-54-5616wwzn 2000 [IU] by mouth once dailyCholecalciferol (Vitamin D3) 2000 UNIT Oral Daily November 06, 2017 DiscontinuedStart: 11-06-2017 End: 79-53-0809fati 2 tablets by mouth once dailyCholecalciferol (Vitamin D3) (Vitamin D3) 1,000 unit Tablet Discontinued 2000 UNIT PO Daily November 06, 2017 12:00am September 26, 2018 10:16amCVS Vitamin C 500 MG Oral Tablet (5 sources)Start: 94-84-7412UAV Vitamin C 500 MG Oral Tablet 12/09/2022 Provider: Juanita Pinzonextromethorphan hydrobromide 2 mg/ml / guaiFENesin 20 mg/ml oral suspension (1 source)Uncompetitive U-mqfyhv-B-aspartate Receptor Antagonist, Sigma-1 AgonistStart: 10-31-2022 End: 64-21-1526ryho 5 mL by mouth three times daily as needed for cough guaiFENesin-dextromethorphan (ROBITUSSIN DM) 100-10 MG/5ML syrup Take 5 mLs by mouth 3 times daily as needed for Cough 120 mL 0 10/31/2022 11/10/2022 Active doxycycline hyclate 100 mg oral tablet (3 sources)Tetracycline-class DrugStart: 04-23-2020 End: 78-82-3892rscx 1 tablet by mouth twice dailydoxycycline hyclate (VIBRA- TABS) 100 MG tablet Take 1 tablet by mouth 2 times daily for 14 days 28 tablet 0 04/23/2020 05/07/2020 ActiveStart: 08-09-2019 End: 21-83-9473psul 1 tablet by mouth twice dailydoxycycline hyclate (VIBRA- TABS) 100 MG tablet Take 1 tablet by mouth 2 times daily for 10 days 20 tablet 0 08/09/2019 08/19/2019 ActiveEQ Nicotine 14 MG/24HR Transdermal Patch 24 Hour (4 sources)Start: 70-35-5380DS Nicotine 14 MG/24HR Transdermal Patch 24 Hour 04/09/2023 Provider: Juanita ANANDCfamotidine 20 mg oral tablet (1 source)Histamine-2 Receptor AntagonistStart: 04-30-2023 End: 02-62-9888cmng 1 tablet by mouth in the morning, then take 1 tablet by mouth at bedtimefamotidine (PEPCID) 20 mg tablet Indications: Allergic reaction to seafood Take 1 tablet (20 mg total) by mouth in the morning and 1 tablet (20 mg total) before bedtime. Do all this for 5 days. 10 tablet 0 04/30/2023 05/05/2023 Activeferrous sulfate 325 mg oral tablet (20 sources)Start: 09-18-2022 End: 71-15-4567Weqpruq Sulfate 325 (65 Fe) MG Oral Tablet 04/09/2023 Provider: Juanita ANANDCStart: 78-07-8239cwqf 1 tablet by mouth twice dailyferrous sulfate (IRON 325) 325 (65 Fe) MG tablet Take 1 tablet by mouth 2 times daily 60 tablet 0 08/12/2022 ActiveStart: 05-17-2022 End: 45-42-3742Cmeolpi Sulfate 325 (65 Fe) MG Oral Tablet Delayed Release 05/17/2022 - 09/18/2022 Provider: Mitch Addisonsh Oils (20 sources)Start: 65-45-4588GOM Fish Oil 1200 MG Oral Capsule 09/18/2022 Provider: Juanita Robbinsart: 05-17-2022 End: 86-02-1296Zmta Oil 1200 MG Oral Capsule 05/17/2022 - 09/18/2022 Provider: Juanita ANANDCStart: 45-37-9517Srct Oil 1200 MG Oral Capsule 05/17/2022 Provider: Juanita ANANDCfluconazole 150 mg oral tablet (4 sources)Azole AntifungalStart: 41-26-8524sqewncirhrq (DIFLUCAN) 150 MG tablet Take 1 tablet by mouth every 7 days Repeat dose in 7 days 2 tablet 0 08/28/2022 Activegabapentin 100 mg oral capsule (20 sources)Anti-epileptic AgentStart: 20-88-3067kvvo 1 capsule by mouth in the morning, then take 1 capsule by mouth at bedtimegabapentin (NEURONTIN) 100 mg capsule Take 1 capsule (100 mg total) by mouth in the morning and 1 capsule (100 mg total) before bedtime. 0 12/13/2019 ActivehydrOXYzine pamoate 25 mg oral capsule (20 sources)AntihistamineStart: 95-65-3985ciuo 1 capsule by mouth four times dailyHydroxyzine Pamoate (Vistaril) 25 mg Capsule Active 25 MG PO Four times daily June 19, 2019 12:00amStart: 11-05-2016 End: 82-43-3543wqvs 25 mg by mouth three times dailyHydroxyzine Pamoate 25 MG Oral Three times daily November 05, 2016 January 22, 2017 Discontinuedlithium carbonate 450 mg extended release oral tablet (17 sources)Start: 09-30-2018 End: 57-04-3362ktbp 450 mg by mouth twice dailyLithium Carbonate Active 450 MG PO Twice daily 60 30 July 05, 2019 12:00amloratadine 10 mg oral tablet (1 source)Start: 10-22-3052ikhz 1 tablet by mouth once daily as neededloratadine (CLARITIN) 10 mg tablet Indications: Allergic reaction to seafood Take 1 tablet (10 mg total) by mouth daily as needed for allergies. 10 tablet 0 04/30/2023 Active1 ml medroxyPROGESTERone acetate 150 mg/ml injection (5 sources)ProgestinmedroxyPROGESTERone (DEPO-PROVERA) 150 MG/ML injection Inject 150 mg into the muscle every 3 months0 Active1 ml methylPREDNISolone acetate 80 mg/ml injection (2 sources)CorticosteroidStart: 02-82-1356hkamdwVQKQTEPirxzb acetate (DEPO- MEDROL) injection 80 mgnaproxen 250 mg oral tablet (20 sources)Nonsteroidal Anti-inflammatory DrugStart: 25-32-5594keynnzes (NAPROSYN) tablet 500 mgStart: 97-20-3990xwbc 1 tablet by mouth twice daily at mealtimenaproxen (NAPROSYN) 375 MG tablet Take 1 tablet by mouth 2 times daily (with meals) 20 tablet 0 08/03/2019 ActiveStart: 09-30-2018 End: 08-79-6292rczx 250 mg by mouth twice daily as needed for painNaproxen 250 MG Oral Twice daily PRN For pain 40 September 30, 2018 ActiveStart: 03-10-2018 End: 94-13-8681zzdr 1 tablet by mouth twice dailynaproxen (NAPROSYN) 500 MG tablet Take 500 mg by mouth 2 times daily 0 03/10/2018 08/03/2019 Discontinued (Therapy completed)OXcarbazepine 300 mg oral tablet (20 sources)Anti-epileptic AgentStart: 04-09-2023 End: 14-11-8653AKaxclolqqiuy 300 MG Oral Tablet 06/16/2023 Provider: Jelani Harris CNPStart: 07-05-2019 End: 86-50-5085qtpb 1 tablet by mouth in the morning, then take 1 tablet by mouth at bedtimeOXcarbazepine (TRILEPTAL) 600 mg tablet Take 1 tablet (600 mg total) by mouth in the morning and 1 tablet (600 mg total) before bedtime. 0 12/13/2019 ActiveStart: 09-30-2018 End: 99-04-8850doar 600 mg by mouth twice dailyOxcarbazepine 600 MG Oral Twice daily 60 30 September 30, 2018 ActiveStart: 11-21-2017 End: 18-73-6846poca 450 mg by mouth twice dailyOxcarbazepine 450 MG Oral Twice daily November 21, 2017 DiscontinuedStart: 08-30-2017 End: 63-26-8125ohpe 1 tablet by mouth twice dailyOxcarbazepine (Trileptal) 300 mg Tablet Discontinued 300 MG PO Twice daily October 31, 2017 12:00am November 21, 2017 10:24amprazosin 1 mg oral capsule (20 sources)alpha-Adrenergic BlockerStart: 04-09-2023 End: 25-33-6204Rkwoqvid HCl 1 MG Oral Capsule 06/16/2023 Provider: Jelani Harris CNPStart: 79-56-3945zbzg 1 capsule by mouth at bedtimeprazosin (MINIPRESS) 1 MG capsule take 1 capsule by mouth at bedtime 0 10/20/2021 ActiveStart: 12-13-2019 take 1 capsule by mouth once dailyprazosin (MINIPRESS) 2 mg capsule Take 1 capsule (2 mg total) by mouth nightly. 0 12/13/2019 ActiveStart: 07-05-2019 End: 72-27-9873mfpt 2 mg by mouth once daily at bedtimePrazosin Discontinued 2 MG PO Daily at bedtime 60 July 05, 2019 12:00am May 19, 2020 2:39pmStart: 09-30-2018 End: 42-14-6307fxes 3 mg by mouth once daily at bedtimePrazosin 3 MG Oral Daily at bedtime 90 30 September 30, 2018 ActiveStart: 11-21-2017 End: 04-71-3594dexq 5 mg by mouth once daily at bedtimePrazosin 5 MG Oral Daily at bedtime November 21, 2017 DiscontinuedStart: 08-30-2017 End: 43-14-0854clya 1 capsule by mouth once daily at bedtimePrazosin (Minipress) 2 mg Capsule Discontinued 2 MG PO Daily at bedtime October 31, 2017 12:00am November 21, 2017 10:23amStart: 04-29-2017 End: 08-51-6375iwyp 2 mg by mouth once daily at bedtimePrazosin 2 MG Oral Daily at bedtime April 29, 2017 October 31, 2017 DiscontinuedStart: 11-11-2016 End: 66-29-1199lnsr 1 mg by mouth once daily at bedtimePrazosin Discontinued 1 MG PO Daily at bedtime January 30, 2017 10:09am April 23, 2017 10:59am predniSONE 20 mg oral tablet (1 source)Start: 12-01-2019 End: 41-92-5876pjbg 1 tablet by mouth twice dailypredniSONE (DELTASONE) 20 MG tablet Take 1 tablet by mouth 2 times daily for 10 days 20 tablet 0 12/01/2019 12/11/2019 ActivePrenatal Vit-Fe Fumarate-FA (PNV PLUS MULTIVITAMIN) 27-1 MG TABS (7 sources)Start: 04-04-2022 End: 17-49-7849pvwz 1 tablet by mouth once dailyPrenatal Vit-Fe Fumarate-FA (PNV PLUS MULTIVITAMIN) 27-1 MG TABS Take 1 tablet by mouth daily 30 tablet 11 04/04/2022 03/30/2023 ActiveStart: 07-02-2021 End: 36-26-0679gsvu 1 tablet by mouth once dailyPrenatal Vit-Fe Fumarate-FA (PNV PLUS MULTIVITAMIN) 27-1 MG TABS Take 1 tablet by mouth daily 30 tablet 12 07/02/2021 08/01/2021 ActiveSE- 19 CHEWABLE 29 mg iron- 1 mg tablet,chewable (2 sources)Start: 55-13-8101CL- 19 CHEWABLE 29 mg iron- 1 mg tablet,chewable Indications: Desire for CHEW AND SWALLOW 1 TABLET ONCE DAILY 90 tablet 7 07/25/2020 Activesertraline 100 mg oral tablet (19 sources)Serotonin Reuptake InhibitorStart: 80-74-4891jdhw 1 tablet by mouth once dailysertraline (ZOLOFT) 100 MG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 to ankle (body structure)]Onset: 479565-34-8133ZstbdkwaYxbqb female genital disorders (20 sources)History of recurrent miscarriage - not ; Translations: [Recurrent loss]Onset: 055302-29-4923RwplysuyOjfxy female genital disorders (2 sources)Recurrent miscarriage; Translations: [Recurrent loss]Onset: 346019-04-8497IujeytozGvsji lower respiratory disease (12 sources)Snoring; Translations: [Other respiratory abnormalities]Onset: 75-22-8295AgwnxtqgEwkkl nutritional; endocrine; and metabolic disorders (12 sources)Increased body mass index; Translations: [Other symptoms and signs concerning food and fluid intake]Onset: 407372-68-5394RelyejbhSjygi screening for suspected conditions (not mental disorders or infectious disease) (13 sources)Encounter for screening for diabetes mellitus; Translations: [Diabetes Risk Test Score]Onset: 24-76-5225RzjngiifFhbgy upper respiratory infections (20 sources)Acute pharyngitis, unspecified; Translations: [Viral upper respiratory tract infection]Onset: 21-15-7608IqoxztmwPfzkrt media and related conditions (14 sources)Acute serous otitis media of left ear; Translations: [Acute serous otitis media, left ear]Onset: 11-05-2022 Resolved: 105348-44-0420BicwllmnBiqabzcee-fdkdefj disorders (13 sources)Marijuana user; Translations: [Cannabis use, unspecified, uncomplicated]Onset: 27-01-2520FrqjqqqyOkbpznohjeh injury; contusion (10 sources)Contusion of lower leg; Translations: [Structure of anterior region of lower leg (body structure)]Onset: 65-38-8745HgdfbfopXxelxyxlzomm (16 sources)Intervention & Counseling Cessation of Tobacco Use 3-10 Min.; Translations: [Intervention &Counseling Cessation of Tobacco Use 3-10 Min.] Onset: 82-23-0387Nccbfxfodthn (1 source)Acute candidiasis of vulva and vagina; Translations: [Acute candidiasis of vulva and vagina]Onset: 45-30-7607Rltxkmfwdoua (4 sources)Consent for procedure given; Translations: [Consent Form For Procedure on File]Onset: 41-53-4032Lhvhcdydbqqa (4 sources)Nexplanon Implant Procedure; Translations: [Nexplanon Implant Procedure]Onset: 17-24-5119Qneqnpugmfhb (4 sources)Nexplanon Implant Wound Care; Translations: [Nexplanon Implant Wound Care]Onset: 55-38-6624Lzisxpyvltza (2 sources)Onset: 115351-22-5601 Results Test NameValueInterpretationReference RangeFacilityAmbulatory Visit Summaryon 83-86-6017Wyhibulspk Visit SummaryAmbulatory Visit Summary SUSY DIAZ :1995 Visit Date:10/30/2023 Ambulatory Visit Instructions Your Diagnosis Former smoker BMI 45.0-49.9, adult Class 2 severe obesity due to excess calories with serious comorbidity and body mass index (BMI) of35.0 to 35.9 in adult Body mass index [...] you for choosing us for your care. [facility] Medicine Office/Clinic Noteon 50-02-0823Efbfgv Medicine Office/Cl[facility] NoteLa[facility] Note HPI Staff Susy is a 28 year old female presenting with needing a doctors note that she can go back to work, and ER advised not to do stairs [facility]- 10/26/23- CC; left knee Xray done- normal [...] reports she was in the ED at [facility] on 10/26/2023 and was diagnosed with chondromalacia of the left knee. She received prednisone which she is still taking and wasencouraged to f/u with ortho. She states the [...] medical support in addressing this problem. Your BMIand weight management will be followed at subsequent visits. 4. Class 2 severe obesity due to excess calories with serious comorbidity and body mass index (BMI)of 35.0 to 35.9 in adult (E66.01: Morbid (severe) obesity due to excess calories) The standard range for ages 18 and older is >=18.5 and < 25 kg/m2. Your BMI today was above this range, this falls in the overweight to obese category and there are medical benefits to weight loss. We can offer counselling, referral, and/or medical support in addressing this problem. Your BMIand weight management will be followed at subsequent visits. 5. Body mass index [BMI] 35.0-35.9, adult (Z68.35: Body mass index [BMI] 35.0- 35.9, adult) The standard range for ages 18 and older is >=18.5 and < 25 kg/m2. Your BMI today was above this range, this falls in the overweight to obese category and there are medical benefits to weight loss. We can offer counselling, referral, and/or medical support in addressing this problem. Your BMIand weight management will be followed at subsequent [...] times per year, 09 (more content not included)...[facility] HospitalComment on above:Result Comment: Electronically Signed By: YEISON SWANSON CNP\.charles\Date and Time Signed: 10/30/23 12:59 EDTProvider Letteron 81-30-8163Ebzxcnnr LetterProvider Letter October 30, 2023 [place] [address] : 1995 To Whom It May Concern, Susy may return to work 2023 but cannot go up and down steps pending Orthopedic appointment in November Date of Illness: From: _ To: _ May Return to Work On: Restrictions: _ Comments: _No going up and down steps pending Orthopedic appointment Sincerely, Family Medicine [address] [address] RtfsvrEihyymOhioHealth Shelby HospitalProvider Letteron 10-08-2023 Provider LetterProvider Letter October 08, 2023 SUSY DIAZ [address] [place] [address] SUSY DIAZ 1995 Dear Susy , We have been trying to reach you with no success. It is important that you return our call regarding your recent hospital discharge upon receiving this letter. Also, at the time of your call, please provide us with your current information. Thank you for your prompt attention to this matter. Sincerely, Edgar Lopez RN Apprentice Photographer [phone] Shelby HospitalHemoglobin A1Con 00-76-3732Vrbjeuz [Mass/Vol]111 mg/dLNoMartin Memorial HospitalComment on above:Result Comment: The ADA and AACC recommend providing the estimated average glucose result to permit better patient understanding of their HBA1c result.Performed By: #### LIPR #### [facility] [address] [place] [address] [place] Sole Layer: Rafiq Fernández DO #### GLYHGB #### [facility] [employer] [address] [place] [address] [place] Sole Layer: Moisés Harp MDHbA1c (Bld) [Mass fraction]5.5 %Normal4.0-6.0 [facility] HospitalComhenry ford hospital on above:Performed By: #### LIPR #### [facility] [address] [place] [address] Welt Sole Layer: Rafiq Fernández DO #### GLYHGB #### [facility] [employer] [address] [place] [address] Welt Sole Layer: Moisés Harp MDLipid Profileon 35-72-5023Xnimjhtgnuj [Mass/Vol] 135 mg/dLNormal<200[facility] on above:Result Comment: Cholesterol Guidelines: <200 Desirable 200-240 Borderline >240 UndesirablePerformed By: #### LIPR #### [facility] [address] [place] [address] Welt Sole Layer: Rafiq Fernández DO #### GLYHGB #### [address] [address] Welt Sole Layer: SHARON Porterholesterol in HDL [Mass/Vol]36 mg/dLLow>40[facility] on above:Result Comment: HDL Guidelines: <40 Undesirable 40-59 Borderline >59 DesirablePerformed By: #### LIPR #### [facility] [address] [place] [address] Welt Sole Layer: Rafiq Fernández DO #### GLYHGB #### [address] [address] Welt Sole Layer: SHARON Porterholesterol in LDL [Mass/Vol]83 mg/dLNormal0-130 [facility] on above:Result Comment: LDL Guidelines: <100 Desirable 100-129 Near to/above Desirable 130-159 Borderline >159 Undesirable Direct (measured) LDL and calculated LDL are not interchangeable tests.Performed By: #### LIPR #### [facility] [address] [place] [address] Welt Sole Layer: Rafiq Fernández DO #### GLYHGB #### [address] [address] Welt Sole Layer: Adonis Porterstmontana.total/Cholesterol in HDL [Mass ratio]3.8 {ratio}Normal<5[facility] on above:Performed By: #### LIPR #### [facility] [place] [address] Welt Sole Layer: Rafiq Fernández DO #### GLYHGB #### [address] [address] Welt Sole Layer: Moisés Harp MDTriglyceride [Mass/Vol]78 mg/dLNormal<150MerAshtabula County Medical CenterComment on above:Result Comment: Triglyceride Guidelines: <150 Desirable 150-199 Borderline 200-499 High >499 Very high Based on AHA Guidelines for fasting triglyceride, November 2011.Performed By: #### LIPR #### [facility] [address] [place] [address] Welt Sole Layer: Rafiq Fernández DO #### GLYHGB #### [address] [address] Welt Sole Layer: Jean Paul Porter 15-21-1592Xzdxvymmvpq distribution width (RBC) [Ratio]17.0 %High11.5-14.9[facility] HospitalComment on above: Performed By: #### CP, CBC, EDTOX, TSHX #### [facility] [address] [place] [address] Welt Sole Layer: Rafiq Fernández DOHematocrit (Bld) [Volume fraction]42.7 % Nwqblz87-91KqemrAshtabula County Medical CenterComment on above:Performed By: #### CP, CBC, EDTOX, TSHX #### [facility] [place] [address] Welt Sole Layer: Rafiq Fernández DOHemoglobin (Bld) [Mass/Vol]13.9 g/dLNormal 12.0-16.0MerAshtabula County Medical CenterComhenry ford hospital on above:Performed By: #### CP, CBC, EDTOX, TSHX #### [facility] [address] [place] [address]. [place] [address] Welt Sole Layer: Rafiq Fernández DOMCH (RBC) [Entitic mass]25.3 xqEyz52-58KbvvrMemorial Health System [facility] Hospital on above:Performed By: #### CP, CBC, EDTOX, TSHX #### [facility] [address] [facility] [place] [address] Welt Sole Layer: Rafiq Fernández DOMCHC (RBC) [Mass/Vol]32.7 g/mJFpmiea62-15 [facility] HospitalComhenry ford hospital on above:Performed By: #### MARC, CBC, EDTOX, TSHX #### [facility] [address] [place] [address]. [place] [address] Welt Sole Layer: Rafiq Fernández DOMCV (RBC) [Entitic vol]77.4 aOFqy77-879LjrsgMemorial Health System [facility] Hospital on above:Performed By: #### CP, CBC, EDTOX, TSHX #### [facility] [address] [place] [address]. [place] [address] Welt Sole Layer: Rafiq Fernández DOPlatelet mean volume (Bld) [Entitic vol]9.3 fLNormal6.0-12.0[facility] HospitalComhenry ford hospital on above:Performed By: #### CP, CBC, EDTOX, TSHX #### [facility]0 [facility] [place] [address] [place] Sole Layer: Rafiq Fernández DOPlatelets (Bld) [#/Vol]231 10*3/uLNormal 150-450[facility] HospitalComhenry ford hospital on above:Performed By: #### CP, CBC, EDTOX, TSHX #### [facility]0 [facility] [place] [address] Welt Sole Layer: Rafiq Fernández DORBC (Bld) [#/Vol]5.51 10*6/uLHigh4.0-5.2MProMedica Flower HospitalComhenry ford hospital on above:Performed By: #### CP, CBC, EDTOX, TSHX #### [facility] [address] [facility] [place] [address] Welt Sole Layer: Rafiq Fernández DOWBC (Bld) [#/Vol]7.0 10*3/uLNormal3.5-11.0 [facility] HospitalComhenry ford hospital on above:Performed By: #### CP, CBC, EDTOX, TSHX #### [facility] [address] [facility] [place] [address] Welt Sole Layer: Rafiq Fernández DOComp Metabolic Profon 22-20-1097QDN [Catalytic activity/Vol]19 U/LNormal5-33[facility] HospitalComhenry ford hospital on above:Result Comment: SPECIMEN MODERATELY HEMOLYZED, RESULTS MAY BE ADVERSELY AFFECTEDPerformed By: #### CP, CBC, EDTOX, TSHX #### [facility] [address] [facility] [place] [address] Welt Sole Layer: Rafiq Fernández DOAST [Catalytic activity/Vol]26 U/LNormal<32 [facility] on above:Result Comment: SPECIMEN MODERATELY HEMOLYZED, RESULTS MAY BE ADVERSELY AFFECTEDPerformed By: #### CP, CBC, EDTOX, TSHX #### [facility] [address] [facility] [place] [address] Welt Sole Layer: Rafiq Fernández DOPotassium [Moles/Vol]5.2 mmol/LNormal3.7-5.3 [facility] on above:Result Comment: SPECIMEN MODERATELY HEMOLYZED, RESULTS MAY BE ADVERSELY AFFECTEDPerformed By: #### CP, CBC, EDTOX, TSHX #### [facility] [address] [facility] [place] [address] Welt Sole Layer: Fanelly, Rafiq, DOAlbumin [Mass/Vol]4.2 g/dLNormal3.5-5.2MProMedica Flower HospitalComment on above:Performed By: #### CP, CBC, EDTOX, TSHX #### [facility] [address] [facility] [place] [address] Welt Sole Layer: Rafiq Fernández DOAlkaline Phos85 U/INvdvna75-583UjlydBlanchard Valley Health System [facility] HospitalComment on above:Performed By: #### CP, CBC, EDTOX, TSHX #### [facility] [address] [place] [address]. [place] [address] Welt Sole Layer: Rafiq Fernández DOAnion gap [Moles/Vol]11 mmol/LNormal9-17[facility] HospitalComment on above:Performed By: #### MARC, CBC, EDTOX, TSHX #### [facility] [address] [place] [address]. [place] [address] Welt Sole Layer: Rafiq Fernández DOBilirubin [Mass/Vol]0.2 mg/dLLow0.3-1.2MProMedica Flower HospitalComment on above:Performed By: #### MARC, CBC, EDTOX, TSHX #### [facility] [address] [place] [address]. [place] [address] Welt Sole Layer: Rafiq Fernández DOCalcium [Mass/Vol]8.7 mg/dLNormal8.6-10.4 [facility] HospitalComhenry ford hospital on above:Performed By: #### MARC, CBC, EDTOX, TSHX #### [facility] [address] [place] [address]. [place] [address] Welt Sole Layer: Rafiq Fernández DOChloride [Moles/Vol]106 mmol/RAbjppv05-482 [facility] HospitalComhenry ford hospital on above:Performed By: #### CP, CBC, EDTOX, TSHX #### [facility] [address] [place] [address]. [place] [address] Welt Sole Layer: Rafiq Fernández DOCO2 [Moles/Vol]20 mmol/AIdcpmg08-91FpejzBlanchard Valley Health System [facility] Valley HospitalComment on above:Performed By: #### CP, CBC, EDTOX, TSHX #### [facility] [address] [facility] [place] [address] Welt Sole Layer: Rafiq Fernández DOCreatinine [Mass/Vol]0.5 mg/dLNormal0.5-0.9 [facility] HospitalComhenry ford hospital on above:Performed By: #### MARC, CBC, EDTOX, TSHX #### [facility] [address] [place] [address]. [place] [address] Welt Sole Layer: Rafiq Fernández DOGFR/1.73 sq M.predicted among non-blacks MDRD (S/P/Bld) [Vol rate/Area]mL/min/{1.73_m2}Normal>60[facility] Comment on above:Result Comment: These results are not intended for [...] or following therapy that affects renal tubular secretion.Performed By: #### CP, CBC, EDTOX, TSHX #### [facility]0 [facility] [place] [address] Welt Sole Layer: Rafiq Fernández DOGlucose [Mass/Vol]155 mg/sXNreo73-69WhrwqProMedica Flower HospitalComhenry ford hospital on above:Performed By: #### CP, CBC, EDTOX, TSHX #### [facility]0 [facility] [place] [address] Welt Sole Layer: Rafiq Fernández DOProtein [Mass/Vol]8.5 g/dLHigh6.4-8.3MProMedica Flower HospitalComhenry ford hospital on above:Performed By: #### CP, CBC, EDTOX, TSHX #### [facility] [place] [address] Welt Sole Layer: Rafiq Fernández, DOSodium [Moles/Vol]137 mmol/QLfesdk615-336 [facility] HospitalComhenry ford hospital on above:Performed By: #### CP, CBC, EDTOX, TSHX #### [facility] [address] [place] [address] Welt Sole Layer: Rafiq Fernández DOUrea nitrogen [Mass/Vol]6 mg/dLNormal6-20 [facility] HospitalComhenry ford hospital on above:Performed By: #### CP, CBC, EDTOX, TSHX #### [address] [address] Welt Sole Layer: Rafiq Fernández DODrug Scr, Abuse, Uron 09-30-2023 Amphetamine(s),UrNegativeNormalNEGMerAshtabula County Medical CenterComhenry ford hospital on above: Result Comment: (Positive cutoff 1000 ng/mL)Performed By: #### RICHARD UHCG #### [address] [address] Welt Sole Layer: Rafiq Fernández DOBarbiturate(s),UrNegativeNormalNEGMercy Metrohealth Parma Medical CenterComhenry ford hospital on above:Result Comment: (Positive cutoff 200 ng/mL)Performed By: #### RICHARD, UHCG #### [facility] [address] [place] [address] Welt Sole Layer: Rafiq Fernández DOBenzodiazepine(s)NegativeNormalNEGMercy Metrohealth Parma Medical CenterComhenry ford hospital on above:Result Comment: (Positive cutoff 200 ng/mL)Performed By: #### RICHARD, UHCG #### [facility] [address] [facility] [place] [address] Welt Sole Layer: Rafiq Fernández DOCannabinoid(s),UrNegativeNormalNEGMerParkview Health Montpelier Hospital on above:Result Comment: (Positive cutoff 50 ng/mL)Performed By: #### RICHARD, UHCG #### [facility] [address] [place] [address] Welt Sole Layer: Rafiq Fernández DOCocaine MetaboliteNegativeNormalNEGMemorial Health System [facility] on above:Result Comment: (Positive cutoff 300 ng/mL)Performed By: #### RICHARD UHCG #### [facility] [address] [place] [address] Welt Sole Layer: Rafiq Fernández DOFentanyl, UrineNegativeNormalNEGMemorial Health System [facility] on above:Result Comment: (Positive cutoff 5 ng/ml)Performed By: #### RICHARD, UHCG #### [facility] [address] [place] [address] Welt Sole Layer: Rafiq Fernández DOInterpretive InfoAssay provides medical screening only. The absence of expected drug(s) and/orNormalMercy Metrohealth Parma Medical CenterComhenry ford hospital on above:Result Comment: metabolite(s) may indicate diluted or adulterated urine, limitations of testing or timing of collection. Testing for legal purposes should be confirmed by another method. To request confirmation of test result, please call the lab within 7 days of sample submission.Performed By: #### RICHARD, UHCG #### [facility] [address] [place] [address] Welt Sole Layer: Rafiq Fernández DOMethadone Ql (U)NegativeNormalNEGMerParkview Health Montpelier Hospital on above:Result Comment: (Positive cutoff 300 ng/mL)Performed By: #### RICHARD, UHCG #### [facility] [address] [place] [address], [place] [address] Welt Sole Layer: Rafiq Fernández DOOpiate(s), UrNegativeNormprNEGMemorial Health System [facility] on above:Result Comment: (Positive cutoff 300 ng/mL)Performed By: #### GIORGIO RAMOS #### [facility] [address] [place] [address]. [place] [address] Welt Sole Layer: Rafiq Fernández DOOxycodone, UrineNegativeNormalNEGMemorial Health System [facility] Hospital on above:Result Comment: (Positive cutoff 100 ng/mL)Performed By: #### GIORGIO RAMOS #### [facility] [address] [place] [address]. [place] [address] Welt Sole Layer: Rafiq Fernández DOPhencyclidine, UrNegMercy Health Fairfield Hospital on above:Result Comment: (Positive cutoff 25 ng/mL)Performed By: #### GIORGIO RAMOS #### [facility] [address] [place] [address] Welt Sole Layer: Rafiq Fernández DOHCG, ,Urineon 76-79-3050Uuqo HCG ( test) Ql (U)NegativeNormPaulding County HospitalComhenry ford hospital on above:Result Comment: Specimens with hCG levels near the threshold of the test (25 mIU/mL) may give a negative or indeterminate result. In such cases, another test should be performed with a new specimen in 48-72 hours. If early is suspected clinically in this setting, correlation with quantitative serum b-hCG level is suggested.Performed By: #### GIORGIO RAMOS #### [facility] [address] [place] [address] Welt Sole Layer: Rafiq Fernández DOTS w/reflex to FT4on 58-23-2850Dwihwtq Stim. Horm.1.64 uIU/mLNormal0.30-5.00Mercy Verden HospitalComment on above: Performed By: #### CP, CBC, EDTOX, TSHX #### [facility] [address] [facility] [place] [address] Welt Sole Layer: Rafiq Fernández DOTox Scr, Bld, EDon 09-18-7463Kyojnbe [Mass/Vol]152 mg/dLHigh<10[facility] Medical CenterComment on above:Performed By: #### CP, CBC, EDTOX, TSHX #### [facility] [address] [facility] [place] [address] Welt Sole Layer: Rafiq Fernández DOEthanol percent0.152 %NormalMerAshtabula County Medical CenterComment on above:Performed By: #### CP, CBC, EDTOX, TSHX #### [facility] [address] [facility] [place] [address] Welt Sole Layer: Rafiq Fernández DOAmbulatory Visit Summaryon 09-29-2023 Ambulatory Visit SummaryAmbulatory Visit Summary SUSY DIAZ :1995 Visit Date:09/29/2023 Ambulatory Visit Instructions Your [...] Appointments Friday 8:20 AM EDT With: Where: [facility] [address] [address]- Friday 7:40 AM EDT With: YEISON SWANSON CNP: [place] [phone]- You Need to Complete the Following CBC [...] you for choosing us for your care. [facility] Medicine Office/Clinic Noteon [phone] Medicine Office/Clinic NoteFaharley private hospital Medicine Office/Clinic Note Chief Complaint New Pt HPI Staff Susy is a 28 year old female presenting to establish care Establish Care: History: Any previous diagnosis: migraines. borderline diabetic. PTSD. Generalized Anxiety. History of seeing any specialist: Just started seeing counselor a cpl wks ago. When was your last doctors visit: June 2023 Last provider: Juanita Serrano . [facility] in [place] Any recent labs: October of last yr. Health Maintenance UTD: [...] no food allergies, no recurrent infections, no impairedimmunity Additional ROS info: Except as noted in [...] Index (BMI) documented 3008F Comprehensive Metabolic Panel [facility] Internal Ambulatory Referral 2. Encounter to establish care (Z76.89: Persons encountering health services in other specified circumstances) Ordered: Body Mass Index (BMI) documented 3008F Body Mass Index (BMI) documented 3008F CBC w/ Auto Diff Comprehensive Metabolic Panel Current tobacco smoker 1034F Depression Screening Negative 3352F Discharge medications reconciled with current medications in outpatient record 1111F [facility] Internal Ambulatory Referral Lipid Panel TSH With [...] medical support in addressing this problem. Your BMIand weight management will be followed at subsequent visits. Ordered: Body Mass Index (BMI) documented 3008F CBC w/ Auto Diff Comprehensive Metabolic Panel [facility] Internal Ambulatory Referral Lipid Panel TSH With T4fr Reflex 4. Smoker (F17.200: Nicotine dependence, unspecified, uncomplicated) Discu (more content not included)...[facility] HospitalComment on above:Result Comment: Electronically Signed By: YEISON SWANSON CNP\.charles\Date and Time Signed: 09/29/23 10:47 EDTAmbulatory Visit Summaryon 09-02-2023 Ambulatory Visit SummaryAmbulatory Visit Summary SUSY DIAZ :1995 Visit Date:09/02/2023 Ambulatory Visit Instructions Your Diagnosis Pain in joint of left knee BMI 45.0-49.9, adult Morbidly obese Your Care Team Attending Physician - Kala GRULLON, Flakito Cano Primary Care Physician - [facility] This Is Your Medications List Contact [...] fat. BMI does not measure body fat directly.Rather, it is an alternative to procedures that [...] your height. Both height and weight are measured,and the BMI is calculated from those numbers. This can be done either in Maldivian ([place] or metric measurements. Note that charts and online BMI calculators are available to help you find your BMI quickly and easily without having to do these calculations yourself. To calculate your BMI in Maldivian ([place].S[place] measurements: 1. Measure your weight in [...] inches squared measurement is 70 inches x 70inches, which equals 4,900 inches squared. 4. Divide [...] muscular build, such as an athlete, may havea BMI that is higher than 24.9. In cases like these, BMI is not an accurate measure of body fat. ? To determine if excess body fat is the cause of a BMI of 25 or higher, further assessments may needto be done by a health care provider. ? BMI is usually interpreted in the same way for men and women. Where to find more information For more information about BMI, inc (more content not included)...[facility] Medicine Office/Clinic Noteon [id number] Medicine Office/Clinic NoteFaharley private hospital Medicine Office/Clinic Note Chief Complaint Left knee pain HPI Staff 28 year old female present for left knee pain. Pt states that at times she feels the knee give out while walking. Pt states there is no known injury. Onset: 1 week OTC: Ibuprofen/Tylenol History of Present Illness Reviewed and agree with above documented HPI by medical transcription radiology. Patient is a 28-year-old female who presents today with left knee pain. She states that sometimes it feels like her knee gives out while she is walking. 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 Patient denies falling onto that knee or anything striking that knee. Patient states that she has iliotibial band syndrome so she commonly gets these pains. She states that she just went to come in today to make sure she had not done anythingunusual to her knee other than the common symptoms of her syndrome. She states she usually goes to orthopedics and they sent her onto physical therapy. Patient states she was able to come into the exa m room under her own power without any [...] Patient advised she probably needs physical therapy ofwhich Ortho can refer her. Patient was advised that if she could reduce her weight somewhat then this may take stress off of her knee and possibly prevent future flareups of her iliotibial band syndrome. Patient is advised that she can ice her knee for 20 minutes on then off for 40 minutes. Patientmay also use a heating pad in the [...] medical support in addressing this problem. Your BMIand weight management will be followed at subsequent visits. 3. Morbidly obese (E66.01: Morbid (severe) obesity due to excess calories) Same as above Portions of this record may have been created with voice recognition artificial intelligence software, specifically [employer], [employer] and or [employer]. Occasional wrong-word or `amloz-f-rjko? substitutions may have occurred due to the inherent limitations of voice recognition and artificial intelligence software. Follow-up No qualifying data available Patient Education BMI for Adults Acute Knee Pain, Adult, Slzs-vp-Yjhz Problem List/Past Medical History Ongoing Smoker Historical [...] Ovarian cancer: Sister. Immuniz (more content not included)...[facility] Shelby HospitalComment on above:Result Comment: Electronically Signed By: Kala GRULLON, Flakito Ríos.br\Date and Time Signed: 09/02/23 09:36 EDTJail Documentson 46-88-3338Pnno [id number]#1.00TIFFNoSelect Medical Specialty Hospital - ColumbusXR KNEE LEFT (MIN 4 VIEWS)on 36-49-5782BQ KNEE LEFT (MIN 4 VIEWS) History: Left knee pain Comparison: 11/03/20 Findings: 4 weight-bearing views (AP, lat, notch, sunrise) of the left knee demonstrating mild medial joint space narrowing. No significant arthritic changes seen throughout. No acute subluxation/dislocation. Impression: Unremarkable films of the left knee Interpreted by: Whitney Pack DO Boothby, Benjamin C, Signed by: Sravanthi Bal DO 01/03/23 Final resultNormalMerModesto State HospitalMeasles (Rubeola) Imon 73-18-6584Zzmvvtf (Rubeola) Im4.13Normal>1.09[facility] Comment on above:Result Comment: Interpretation: IMMUNE Reference Range: <0.91 Not Immune 0.91-1.09 Equivocal >1.09 ImmunePerformed By: #### CBC, INSU, FERI, FEBC #### [facility] [place], [place] [id number] Welt Sole Layer: TERESA Porterumps,Immun,Abon 90-39-9124Ntvmu,Immun,Ab3.39 Normal>1.09S[facility] Hospital LimaComment on above:Result Comment: Interpretation: IMMUNE Reference Range: <0.91 Not Immune 0.91-1.09 Equivocal >1.09 ImmunePerformed By: #### CBC, INSU, FERI, FEBC #### [facility] [address] [place] [address] [id number] Welt Sole Layer: Moisés Harp MDLaboratory - Microbiology and Antimicrobial susceptibilityon 58-43-4671Ehzlddq virus IgG Qn (S)31.32 [IU]/mLLawrence General HospitalComhenry ford hospital on above:Note: REFERENCE RANGE:<5.0 NON-REACTIVE (non- immune)5.0 TO 9.9 EQUIVOCAL>=10.0 REACTIVE (immune)Responsible Observer: CEEV AUTOFILE ([id number])No Panel Informationon 80-28-8162Gbezozt (Rubeola) Im4.13(>1.09 ) [facility] HospitalComhenry ford hospital on above:Note: Interpretation:IMMUNEReference Range:<0.91 Not Immune0.91-1.09 Equivocal>1.09 ImmuneResponsible Observer: ERICKA PADRON ([id number])Mumps,Immun,Ab3.39(>1.09 )[facility] on above:Note: Interpretation:IMMUNEReference Range:<0.91 Not Immune0.91-1.09 Equivocal>1.09 ImmuneResponsible Observer: ERICKA PADRON ([id number])Reported PhysiciansSee [facility] Comment on above:Note: Reported Physicians:Ordering: Juanita LewisAttending: Juanita LewisReferring: Jose Lewis Ab, IgG on 11-69-8219Tzchnnj Ab, IgG31.32 IU/mLNormalScci Hospital Lima Comment on above:Result Comment: REFERENCE RANGE: <5.0 NON-REACTIVE (non-immune) 5.0 TO 9.9 EQUIVOCAL >=10.0 REACTIVE (immune)Performed By: #### CBC, INSU, FERI, FEBC #### [facility] [address] [place] [address] Welt Sole Layer: Jessica Porter 96-49-6478IUJCRDSxnlvurr lab reviewed with ANDREW elizalde. She reports no further action needed. Hailey Cook RN 11/12/22 1312NormalUniversity of Christus Santa Rosa Hospital – San MarcosURSChart accessed for positive manuela result sent this day. Will review with ed provider for further orders. Hailey Cook RN 11/12/22 1227NormalUniversity of Uvalde Memorial HospitalPROVon 07-39-2520UJIMVM HPI Chief Complaint Patient presents with Abdominal [...] which she says she has not washed. Aidee Coma Scale Score: 15 Patient History Past Medical History: Diagnosis Date Anxiety Asthma Bipolar 1 disorder (CMS/HCC) PTSD (post-traumatic stress disorder) History reviewed. No [...] Triage Vitals Temp Heart Rate Resp BP 11/10/22 2344 11/10/224 11/10/223 11/10/222343 36.7 ???C (98.1 ???F) 85 16 (!) [...] Decision Making Attestion Verenice Llanes MD 11/21/22 0027NormalUniversJ.W. Ruby Memorial HospitalURINALYSIS MICROSCOPIC WITH REFLEX CULTUREon 44-78-4255HWHLC IN URINENormalUniRegency Hospital Cleveland EastComment on above:Performed By: #### [id number] #### [facility] ([facility]) [address] [place], [place] [address]VCXXNMGM IN URINENormalUniRegency Hospital Cleveland East Comment on above:Performed By: #### [id number] #### [facility] ([facility]) [address] [place], [place] [address]VIDFT (#/HPF) IN URINE SEDIMENTOccasionalNormalNone Seen, Occasional, FewUnBellevue HospitalComment on above:Performed By: #### [id number] #### [facility] ([facility]) [address] [place], [place] [address]OILAZ MICROSCOPIC ELEMENTSNormalUniRegency Hospital Cleveland EastComment on above:Performed By: #### [id number] #### [facility] ([facility]) [address] [place], [place] [address]UQR (#/HPF) IN URINE HREENZVG56-343EhljmuqzMkqq SeenUnBellevue HospitalComment on above:Performed By: #### [id number] #### [facility] ([facility]) [address] [place], [place] [address]PXMKRXID EPITHELIAL CELLS (#/HPF) IN URINE SEDIMENTManyAbnormal None Seen, OccasionalUnBellevue HospitalComment on above: Performed By: #### [id number] #### [facility] ([facility]) [address] [place], [place] [address]DRJ (LEUKOCYTE) (#/HPF) IN URINE SEDIMENT6-10AbnormalNone Seen [facility] SystemComment on above:Performed By: #### [id number] #### [facility] ([facility]) [address] [place], [place] [address]BHXZBXHCMY WITH REFLEX CULTUREon 47-34-0883BFDCBRGGK, TOTAL PRESENCE IN URINENegativeSelect Medical Specialty Hospital - Akron Comment on above:Performed By: #### [id number] #### [facility] ([facility]) [address] [place], [place] [address]Ofyajrl (U)Slightly CloudyAbnormalClearUnBellevue HospitalComment on above:Performed By: #### [id number] #### [facility] ([facility]) [address] [place], [place] [address]Abegs (U)YellowNormalYellowMount Carmel Health System Comment on above:Performed By: #### [id number] #### [facility] ([facility]) [address] [place], [place] [address]Zzqrwfw (U) [Mass/Vol]NegativeNormalNegBarberton Citizens HospitalComment on above:Performed By: #### [id number] #### [facility] ([facility]) [address] [place], [place] [address]DVIOCNOUGV PRESENCE IN URINELargeAbnodavis regional medical centerNegBarberton Citizens HospitalComment on above:Performed By: #### [id number] #### [facility] ([facility]) [address] [place], [place] [address]Izmunxc Ql (U)NegativeNormalNegativeMount Carmel Health SystemComment on above:Performed By: #### [id number] #### [facility] ([facility]) [address] [place], [place] [address]YIBBVZVPY ESTERASE PRESENCE IN URINE BY TEST STRIPModerate AbnormalNegativeMount Carmel Health SystemComment on above:Performed By: #### [id number] #### [facility] ([facility]) [address] [place], [place] [address]QRXLIUD PRESENCE IN URINENegativeNormalNegBarberton Citizens HospitalComment on above:Performed By: #### [id number] #### [facility] ([facility]) [address] [place] [place] [address]pL (U)6.0 [pH]Normal5.0-8.0UnBellevue Hospital Comment on above:Performed By: #### [id number] #### [facility] ([facility]) [address] [place] [address]Jsezryq (U) [Mass/Vol]NegativeNormalNegativeUnBellevue HospitalComment on above:Performed By: #### [id number] #### [facility] ([facility]) [address] [place] [address]Savfveky gravity (U) [Rel density]1.091Zoq5.015-1.020UnBellevue HospitalComment on above:Performed By: #### [id number] #### [facility] ([facility]) [address] [place], [place] [address]FWUJD CULTURE, ROUTINEon 08-35-1666Hgrqxneq identified Cx Nom (U)>100,000 CFU/ML Uro-Genital FloraNormalUniversJ.W. Ruby Memorial Hospital Comment on above:Performed By: #### [id number] #### [facility] ([facility]) [address] [place], [place] [address]DECRHQDBY DNA PROBEon 28-19-8941VCEENNW SPECIESPositiveAbnormal NegativeUnBellevue HospitalComment on above:Order Comment: Testing methodology is a DNA probe test intended for use in the detection and identification of Manuela species, Gardnerella Vaginalis and Trichomonas Vaginalis nucleic acid vaginal fluid specimens from patients with symptoms of Vaginitis/Vaginosis.Performed By: #### [id number] #### [facility] ([facility]) [address] [place], [place] [address]YRFTEBRLNYJ VAGINALIS BVNegativeNormalNegativeUnBellevue HospitalComment on above:Order Comment: Testing methodology is a DNA probe test intended for use in the detection and identification of Manuela species, Gardnerella Vaginalis and Trichomonas Vaginalis nucleic acid vaginal fluid specimens from patients with symptoms of Vaginitis/Vaginosis.Performed By: #### [id number] #### [facility] ([facility]) [address] [place], [place] [address]HQBHTULGIYU VAGINALISNegativeNormalNegativeMount Carmel Health SystemComment on above:Order Comment: Testing methodology is a DNA probe test intended for use in the detection and identification of Manuela species, Gardnerella Vaginalis and Trichomonas Vaginalis nucleic acid vaginal fluid specimens from patients with symptoms of Vaginitis/Vaginosis.Performed By: #### [id number] #### [facility] ([facility]) [address] [place], [place] [address]CGC, ,Urineon 47-66-5455Zhdi HCG ( test) Ql (U)NegativeNormalNEGMerAshtabula County Medical CenterComment on above:Result Comment: Specimens with hCG levels near the threshold of the test (25 mIU/mL) may give a negative or indeterminate result. In such cases, another test should be performed with a new specimen in 48-72 hours. If early is suspected clinically in this setting, correlation with quantitative serum b-hCG level is suggested.Performed By: #### UHCG #### [facility] [address] [place] [address] Welt Sole Layer: Rafiq Fernández, DOPregnancy, Urineon 13-37-9962JIR ( test) Ql (U)NegativeNEGATIVEBON [facility], AVONComment on above:Specimens with hCG levels near the threshold of the test (25 mIU/mL) may give a negative or indeterminate result. In such cases, another test should be performed with a new specimen in 48-72 hours. If early is suspected clinically in this setting, correlation with quantitative serum b-hCG level is suggested. IN[facility]AKS HOSPITALFactor V Mutationon 10-22-2022F 5 SPECIMENWhole Blood NormalScci Hospital LimaComment on above:Performed By: #### [id number] #### [facility] [address] [place] [address] Welt Sole Layer: Sloan Dias MDFACTOR 5 MUTATIONNegativeNormalMercy Coalinga State HospitalComment on above:Result Comment: (NOTE) Indication for testing: Assess genetic risk for thrombosis. NEGATIVE: The factor V Leiden variant, c.1601G>A; p.Gfi516Jko, was not detected. This does not exclude [...] function in the F5 gene variant c.1601G>A (p.Vay489Tlu). Legacy nomenclature: R506Q (1691G>A) CLINICAL SENSITIVITY: 20-50 percent of individuals with an isolated VTE have the FVL variant. METHODOLOGY: Polymerase chain reaction and fluorescence monitoring. ANALYTICAL SENSITIVITY AND SPECIFICITY: 99 percent. LIMITATIONS: Diagnostic errors can occur due to rare sequence variations. F5 gene mutations, other than p.Iwn162Koy, will not be detected. This test was developed and its performance characteristics determined by [facility] [employer]. It has not been cleared or approved by the US Food and Drug Administration. This test was performed in a CLIA certified laboratory and is intended for clinical purposes. Counseling and informed consent are recommended for genetic testing. Consent forms are available online. Performed By: [facility] [address] [place] [address] Cryogenics Engineer: Colton Rodriguez MD, PhD CLIA Number: [id number] By: #### [id number] #### [address] [address] Welt Sole Layer: Sloan Dias MDGroup A Strep DNAon 29-65-8814Vqeth A Strep DNA Specimen Description .THROAT SWAB Direct Exam Negative: Specimen negative for Streptococcus pyogenes by DNA amplification. Report Status FINAL 10/19/2022NoMercy Health Perrysburg HospitalComment on above:Performed By: #### CBC, INSU, FERI, FEBC #### [facility] [address] [place] Sole Layer: Celi Porter Panel Informationon 53-50-1475Lnlbg A Strep DNASee NoteLawrence General HospitalComhenry ford hospital on above:Note: Specimen Description .THROAT SWABDirect Exam Negative: Specimen negative for Streptococcus pyogenes by DNA amplification.Report Status FINAL 10/19/2022Responsible Observer: JEFFERSON CONCEPCION ([id number])Reported PhysiciansSee Note Lawrence General HospitalComhenry ford hospital on above:Note: Reported Physicians:Ordering: Maite Pelaezending: Kb PelaezReferring: Ashkan Pelaez 08-03-0161Lwnfvvfv, Fluoresc.301 k/bEEmxpna656-787Fowm[address] [place] [address], [place] [address]Comment on above:Performed By: #### CBC, INSU, FERI, FEBC #### [facility] [address] [place] [address] Welt Sole Layer: CARLOS Porter Immature Fract.10.3 %Normal1.1-10.3Mercy Coalinga State HospitalComment on above:Performed By: #### CBC, INSU, FERI, FEBC #### [facility] [address] [place] [address] Welt Sole Layer: Moisés Harp MDErythrocyte distribution width (RBC) [Ratio]19.3 %High11.8-14.4[facility] LimaComment on above:Performed By: #### CBC, INSU, FERI, FEBC #### [address] [address] Welt Sole Layer: Moisés Harp MDHematocrit (Bld) [Volume fraction]42.9 %Normal 36.3-47.1MCommunity Medical Center-ClovisComment on above:Performed By: #### CBC, INSU, FERI, FEBC #### [address] [address] Welt Sole Layer: Moisés Harp MDHemoglobin (Bld) [Mass/Vol]12.6 g/dLNormal 11.9-15.1MCommunity Medical Center-ClovisComment on above:Performed By: #### CBC, INSU, FERI, FEBC #### [address] [address] Welt Sole Layer: TERESA PorterCH (RBC) [Entitic mass]22.9 pgLow25.2-33.5[facility] LimaComment on above:Performed By: #### CBC, INSU, FERI, FEBC #### [address] [address] Welt Sole Layer: TERESA PorterCHC (RBC) [Mass/Vol]29.4 g/cWWgysdo85.4-34.8 [facility] LimaComment on above:Performed By: #### CBC, INSU, FERI, FEBC #### [facility] [employer] [address] [place] [address] Welt Sole Layer: TERESA PorterCV (RBC) [Entitic vol]78.0 fLLow82.6-102.9[facility] Hospital LimaComment on above:Performed By: #### CBC, INSU, FERI, FEBC #### [facility] [address] [place] [address] Welt Sole Layer: Moisés Harp MDNRBC Automated0.0 per 100 WBCNormal0.0[facility] Hospital LimaComment on above:Performed By: #### CBC, INSU, FERI, FEBC #### [facility] [address] [place] [address] Welt Sole Layer: Ratna Portertelet CountSee Reflexed IPF ResultNormal 138-453S[facility] Hospital LimaComment on above:Performed By: #### CBC, INSU, FERI, FEBC #### [facility] [address] [place] [address] Welt Sole Layer: HEATHER PorterBC (Bld) [#/Vol]5.50 10*6/uLHigh3.95-5.11[facility] Hospital LimaComment on above:Performed By: #### CBC, INSU, FERI, FEBC #### [facility] [address] [place] [address] Welt Sole Layer: Moisés Harp MDWBC (Bld) [#/Vol]9.9 10*3/uLNormal3.5-11.3Muniversity hospitals geneva medical centery Coalinga State HospitalComment on above:Performed By: #### CBC, INSU, FERI, FEBC #### [facility] [address] [place] [address] Welt Sole Layer: Moisés Harp MDErythrocyte distribution width (RBC) [Ratio]19.3 %High11.8 - 14.4 %BON [facility]OS[facility], AVONHematocrit (Bld) [Volume fraction] 42.9 %36.3 - 47.1 %[facility]AKS HOSPITALHemoglobin (Bld) [Mass/Vol]12.6 g/dL 11.9 - 15.1 g/dLBON [facility], AVONInterpretation and review of laboratory resultsAbnormalSOUTHAMPTON MEMORIAL HOSPITALH (RBC) [Entitic mass]22.9 pgLow25.2 - 33.5 pgBON CINCINNATI VA MEDICAL CENTERHC (RBC) [Mass/Vol]29.4 g/dL28.4 - 34.8 g/dLBON CINCINNATI VA MEDICAL CENTERV (RBC) [Entitic vol]78.0 fLLow82.6 - 102.9 fLINOVA FAIR OAKS HOSPITALNucleated RBC/100 WBC (Bld) [Ratio]0.0 %0.0 per 100 WBCBON [facility]OS[facility], AVONPlatelet, Lelvxgdxlzhf691FRC [facility], AVONPlatelets (Bld) [#/Vol]See Reflexed IPF ResultBON [facility]OS[facility], AVONPlatelets reticulated/100 platelets Auto (Bld)10.3 %1.1 - 10.3 %[facility] FA[facility] OAKS HOSPITALRBC (Bld) [#/Vol] 5.50 10*6/uLHigh3.95 - 5.11 m/uLBON [facility]ITAL, AVONWBC other (Bld) [#/Vol] 9.9BON [facility] CITY HOSPITALFerritinon 77-97-4146Acqqraxv [Mass/Vol]37 ng/rFXwrone33-491KaabcScci Hospital LimaComment on above: Performed By: #### SHILOH VEGA FERI, FEBC #### [facility] [address] [place], [place] [address] Welt Sole Layer: Moisés Harp MDFerritin [Mass/Vol]37 ng/mL13 - 150 ng/mLINOVA FAIR OAKS HOSPITALInsulinon 54-45-1983Kcmoxjg57.4 mU/LNormalScci Hospital LimaComment on above:Performed By: #### CBCSHILOH FERI FEBC #### [facility] [address] [place], [place] [address] Welt Sole Layer: Eliza Porter RangeNoalScci Hospital LimaComment on above:Result Comment: Fastin.6-24.9 30 min: 20-112 60 min: 29-88 90 min: 26-84 120 min: 22-79Performed By: #### CBC, INSU, FERI, FEBC #### [facility] [address] [place] [address] Welt Sole Layer: Moisés Harp MDInsulin, totalon 97-42-6373Zvoqjnr37.4 mU/LBON [facility], AVONInsulin Reference Range:[facility] HOSPITALComment on above:Fastin.6-24.9 30 min: 20-112 60 min: 29-88 90 min: 26-84 120 min: 22-79 [facility] HOSPITALIron Binding Cap.on 10-17-2022% Fe Saturation8 %Ydv07-33 [facility] Hospital LimaComment on above:Performed By: #### GARY, INSU, FERI, FEBC #### [facility] [address] [place] [address] Welt Sole Layer: Hebert Porter [Mass/Vol]30 ug/hGEzn31-715DtyitScci Hospital LimaComment on above:Performed By: #### GARY, INSU, FERI, FEBC #### [facility] [address] [place] [address] Welt Sole Layer: Ruba Portertal Fe Binding Tud174 ug/zKOimxid770-332LsbpfScci Hospital LimaComment on above:Performed By: #### CBC, INSU, FERI, FEBC #### [facility] [address] [place] [address] Welt Sole Layer: Moisés Harp MDUnbound Fe Bind Jyk998 ug/gBMnvnap013-068JbtrvScci Hospital LimaComment on above:Performed By: #### GARY, INSU, FERI, FEBC #### [facility] [address] [place] [address] Welt Sole Layer: Hebert Porter and TIBCon 27-56-0385Tsvyydcaagnznd and review of laboratory resultsAbnormalBON SELECT [facility], AVONIron [Mass/Vol]30 ug/dLLow37 - 145 ug/dLBON [facility], AVONIron binding capacity [Mass/Vol] 371 ug/dL250 - 450 ug/dLBON [facility], AVONIron saturation [Mass fraction]8 %Low20 - 55 %[facility] MOVOBREWOW841 ug/dL112 - 347 ug/dLBON [facility], AVONLaboratory - Chemistry and Chemistry - challengeon 10-17-2022 Ferritin [Mass/Vol]37 ng/mL(13-150 )[facility] on above:Note: Responsible Observer: CEEV AUTOFILE ([id number])Iron [Mass/Vol]30 ug/dLLow (37-145 )[facility] on above:Note: Responsible Observer: KAESALO AUTOFILE (300)Laboratory - Hematology and Cell countson 54-43-2160Yrskwfepqsr distribution width (RBC) [Ratio]19.3 %High(11.8-14.4 ) [facility] on above:Note: Responsible Observer: RIKI WARD ([id number])Hematocrit (Bld) [Volume fraction]42.9 %(36.3-47.1 )[facility] on above:Note: Responsible Observer: RIKI WARD ([id number])Hemoglobin (Bld) [Mass/Vol]12.6 g/dL(11.9-15.1 )[facility] on above:Note: Responsible Observer: RIKI WARD ([id number]) MCH (RBC) [Entitic mass]22.9 pgLow(25.2-33.5 )[facility] Comment on above:Note: Responsible Observer: RIKI WARD ([id number])MCHC (RBC) [Mass/Vol]29.4 g/dL(28.4-34.8 )[facility] on above: Note: Responsible Observer: RIKI WARD ([id number])MCV (RBC) [Entitic vol]78.0 fL Low(82.6-102.9 )[facility] on above:Note: Responsible Observer: RIKI WARD ([id number])RBC (Bld) [#/Vol]5.50 10*6/uLHigh (3.95-5.11 )[facility] on above:Note: Responsible Observer: RIKI WARD (1015)WBC (Bld) [#/Vol]9.9 10*3/uL(3.5-11.3 )[facility] on above:Note: Responsible Observer: RIKI WARD ([id number])No Panel Informationon 17-01-0773RIS [facility] AVONF 5 SPECIMENWhole BloodWrentham Developmental Center on above:Note: Responsible Observer: VERENA DEBORA (0603)FACTOR 5 MUTATIONNegativeWrentham Developmental Center on above:Note: (NOTE)Indication for testing: Assess genetic risk for thrombosis.NEGATIVE: The factor V Leiden variant, c.1601G>A; p.Crh903Fvy, wasnot detected. This does not exclude a genetic cause forthrom bophilia. If this individual has had a previous [...] male sex and variantsin antithrombin, protein C, proteinS, or factor XIII. Non-geneticrisk factors include, age, [...] of function in the F5 gene variantc.1601G>A (p.Hah029Dao). Legacy nomenclature: R506Q (1691G>A)CLINICAL SENSITIVITY: 20-50 percent of individuals with anisolated VTE have the FVL variant.METHODOLOGY: Polymerase chain reaction and fluorescence monitoring.ANALYTICAL SENSITIVITY AND SPECIFICITY: 99 percent.LIMITATIONS: Diagnostic errors can occur due to rare sequencevariations. F5 gene mutations, other than p.Brh905Nim, will not bedetected.This test was developed and its performance characteristicsdetermined by [facility]. It has not beencleared orapproved by the US Food and Drug Administration. This test wasperformed in a CLIA certified laboratory and is intended forclinical purposes.Counseling and informed consent are recommended for genetictesting. Consent forms are available online.Performed By: [facility] [place] [id number] Director: Colton Rodriguez MD, PhDCLIA Number: [id number] Observer: VERENA CAZARES ([id number])Reported PhysiciansSee NoteWrentham Developmental Center on above:Note: Reported Physicians:Ordering: Kb PelaezAttending: Kb PelaezReferring: Kb Pelaez% Fe Saturation8 %Low(20-55 )[facility] on above:Note: Responsible Observer: CEEV AUTOFILE ([id number])Bfktmgo10.4 mU/LHealth [facility] on above:Note: Responsible Observer: CCEV AUTOFILE (3002)NRBC Automated0.0 per_100_WBC(0.0 )[facility] on above:Note: Responsible Observer: RIKI WARD (1010)Platelet CountSee Reflexed IPF Result k/uL(138-453 )[facility] Comment on above:Note: Responsible Observer: RIKI WARD (9060)Platelet, Fluoresc.301 k/uL(138-453 )[facility] on above:Note: Responsible Observer: RIKI WARD (2320)PLT, Immature Fract.10.3 %(1.1-10.3 )[facility] on above:Note: Responsible Observer: RIKITroy WARD (9792)Reference RangeSee [facility] Comment on above:Note: Fastin.6-24.930 min: 20-46795 min: 29-8890 min: 26- 67088 min: 22-79Responsible Observer: CCEV AUTOFILE (3002)Reported PhysiciansSee [facility] on above:Note: Reported Physicians:Ordering: Godfrey Lewisending: Juanita LewisReferring: Juanita LewisTotal Fe Binding Tzu287 ug/dL(250-450 )[facility] on above:Note: Responsible Observer: CEEV AUTOFILE (3003) Unbound Fe Bind Ids823 ug/dL(112-347 )[facility] on above:Note: Responsible Observer: CEEV AUTOFILE (3003)Laboratory - Chemistry and Chemistry - challengeon 96-01-9750Iwuawmx [Mass/Vol]108 mg/dLHigh(65-105 ) [facility] on above:Note: Responsible Observer: NOVASS AUTOFILE (2019)No Panel Informationon 70-60-6211Ahvychud PhysiciansSee [facility] on above:Note: Reported Physicians:Ordering: Juanita LewisAttending: Juanita LewisCytologyon 42-75-0303Oelatwyw(NOTE) Path Number: [id number] DIAGNOSIS Imaged ThinPrep Pap - Cervical (1 monolayer slide): Specimen Adequacy: Satisfactory for evaluation. - Endocervical/transformation zone component present. Descriptive Diagnosis: Negative for intraepithelial lesion or malignancy. Fungal organisms morphologically consistent with Manuela species. 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 Your patient should be reminded to consult you immediately if she experiences any suspicious signs or symptoms, regardless of her Pap smear result. GYNECOLOGIC CYTOLOGY REPORT Patient Name: BLU SUSY [facility] Rec: [id number] [facility] ANATOMIC PATHOLOGY [address] [place] [phone] NoMercy Health Perrysburg HospitalComment on above: Performed By: #### CBC, INSU, FERI, FEBC #### [address] [address] Welt Sole Layer: Chasity Porter 80-30-9089Pgcizw [id number] Susy Diaz 1995 F Date Provider Department Center 08/09/2022 ALYSON MOCK INF DCC No family history on fileNormalUniversity of Mission Trail Baptist HospitalCBC with Diff on 92-15-6693Zgn. Basophil0.05 k/uLNormal0.00-0.20Scci Hospital LimaComment on above:Performed By: #### LH, INSU, CDP, FSH, GLUF #### [facility] [employer] [address] [place] [address] [phone] Welt Sole Layer: Jagdish Porter.Imm.Granulocyte0.03 k/uLNormal0.00-0.30Scci Hospital LimaComment on above:Performed By: #### LH, INSU, CDP, FSH, GLUF #### [facility] [employer] [address] [place] [address] [phone] Welt Sole Layer: Jagdish Porter.Neutrophil (Seg)5.72 k/uLNormal1.50-8.10 [facility] Hospital LimaComment on above:Performed By: #### LH, INSU, CDP, FSH, GLUF #### [facility] [address] [place] [address] Welt Sole Layer: Moisés Harp MDBasophils/100 WBC (Bld)1 %Normal0-2MCommunity Medical Center-ClovisComment on above:Performed By: #### LH, INSU, CDP, FSH, GLUF #### [facility] [employer] [address] [place] [address] Welt Sole Layer: Moisés Harp MDEosinophils (Bld) [#/Vol]0.11 10*3/uLNormal 0.00-0.44Scci Hospital LimaComment on above:Performed By: #### LH, INSU, CDP, FSH, GLUF #### [place] [address] Welt Sole Layer: YONI Porterosinophils/100 WBC (Bld)1 %Normal1-4Scci Hospital LimaComment on above:Performed By: #### LH, INSU, CDP, FSH, GLUF #### [facility] [employer] [address] [place] [address] Welt Sole Layer: Moisés Harp MDErythrocyte distribution width (RBC) [Ratio]16.9 %High11.8-14.4Scci Hospital LimaComment on above:Performed By: #### LH, INSU, CDP, FSH, GLUF #### [facility] [employer] [address] [place] [address] Welt Sole Layer: Moisés Harp MDHematocrit (Bld) [Volume fraction]35.0 %Low 36.3-47.1MCommunity Medical Center-ClovisComment on above:Performed By: #### LH, INSU, CDP, FSH, GLUF #### [facility] [employer] [address] [place] [address] Welt Sole Layer: Moisés Harp MDHemoglobin (Bld) [Mass/Vol]10.4 g/dLLow11.9-15.1 [facility] LimaComment on above:Performed By: #### LH, INSU, CDP, FSH, GLUF #### [facility] [employer] [address] [place] [address] Welt Sole Layer: Dede Portermature granulocytes/100 WBC (Bld)0 %Normal0 [facility] Hospital LimaComment on above:Performed By: #### LH, INSU, CDP, FSH, GLUF #### [place] [address] Welt Sole Layer: Lyn Portermphocytes (Bld) [#/Vol]2.44 10*3/uLNormal 1.10-3.70Scci Hospital LimaComment on above:Performed By: #### LH, INSU, CDP, FSH, GLUF #### [facility] [employer] [address] [place] [address] Welt Sole Layer: Jeovany Porterhocytes/100 WBC (Bld)27 %Wyryey81-12PhtnmScci Hospital LimaComment on above:Performed By: #### LH, INSU, CDP, FSH, GLUF #### [facility] [employer] [address] [place] [address] Welt Sole Layer: TERESA PorterCH (RBC) [Entitic mass]22.4 pgLow25.2-33.5S[facility] Hospital LimaComment on above:Performed By: #### LH, INSU, CDP, FSH, GLUF #### [facility] [employer] [address] [place] [address] Welt Sole Layer: DICK PorterC (RBC) [Mass/Vol]29.7 g/mGFfrphy48.4-34.8 [facility] Hospital LimaComment on above:Performed By: #### LH, INSU, CDP, FSH, GLUF #### [facility] [address] [place] [address] Welt Sole Layer: TERESA PorterCV (RBC) [Entitic vol]75.3 fLLow82.6-102.9Scci Hospital LimaComment on above:Performed By: #### LH, INSU, CDP, FSH, GLUF #### [facility] [address] [place] [address] Welt Sole Layer: TERESA Porteronocytes (Bld) [#/Vol]0.60 10*3/uLNormal 0.10-1.20S[facility] Hospital LimaComment on above:Performed By: #### LH, INSU, CDP, FSH, GLUF #### [facility] [address] [place] [address] Welt Sole Layer: TERESA Porteronocytes/100 WBC (Bld)7 %Normal3-12Scci Hospital LimaComment on above:Performed By: #### LH, INSU, CDP, FSH, GLUF #### [employer] [address] [place] [address] Welt Sole Layer: Joe Porterophil (Seg)64 %Srucze62-65ZxvgdScci Hospital LimaComment on above:Performed By: #### LH, INSU, CDP, FSH, GLUF #### [employer] [address] [place] [address] Welt Sole Layer: JORDAN PorterBC Automated0.0 per 100 WBCNormal0.0Scci Hospital LimaComment on above:Performed By: #### LH, INSU, CDP, FSH, GLUF #### [employer] [address] [place] [address] Welt Sole Layer: HOMER Porterlatelet mean volume (Bld) [Entitic vol]11.2 fL Normal8.1-13.5S[facility] Hospital LimaComment on above:Performed By: #### LH, INSU, CDP, FSH, GLUF #### [facility] [address] [place] [address] Welt Sole Layer: Raad Porter (Bld) [#/Vol]323 10*3/dSAhzxub228-364 [facility] Hospital LimaComment on above:Performed By: #### LH, INSU, CDP, FSH, GLUF #### [facility] [employer] [address] [place] [address] Welt Sole Layer: KENNEDY Porter (Bld) [#/Vol]4.65 10*6/uLNormal3.95-5.11 [facility] LimaComment on above:Performed By: #### LH, INSU, CDP, FSH, GLUF #### [facility] [employer] [address] [place] [address] Welt Sole Layer: KENNEDY Porter morphology finding Nom (Bld)ANISOCYTOSIS PRESENTNormalScci Hospital LimaComment on above:Result Comment: MICROCYTOSIS PRESENTPerformed By: #### LH, INSU, CDP, FSH, GLUF #### [facility] [employer] [address] [place] [address] Welt Sole Layer: HARIKA Porter (d) [#/Vol]9.0 10*3/uLNormal3.5-11.3MCommunity Medical Center-ClovisComment on above:Performed By: #### LH, INSU, CDP, FSH, GLUF #### [facility] [employer] [address] [place] [address] Welt Sole Layer: Moisés Harp MDFollicle Stim. Hormon 78-90-9088Wwlymtbk Stim. Horm6.9 mIU/mLNormal1.7-21.5Scci Hospital LimaComment on above: Result Comment: Reference Range: Male: 1.5-12.4 Ovulating Female: Follicular Phase 3.5-12.5 Ovulation Phase 4.7-21.5 Luteal Phase 1.7-7.7 Postmenopausal Female: 25.8-134.8Performed By: #### LH, INSU, CDP, FSH, GLUF #### [address] [phone] Welt Sole Layer: Moisés Harp MDGlucose, Fastingon 05-74-4755Efgoqgc [Mass/Vol] 102 mg/dAYwpm95-90Gftei [facility] State HospitalComment on above:Performed By: #### LH, INSU, CDP, FSH, GLUF #### [address] [address] Welt Sole Layer: Moisés Harp MDInsulinon 22-06-8968Ebdbokp70.8 mU/LNormalScci Hospital LimaComment on above:Performed By: #### LH, INSU, CDP, FSH, GLUF #### [address] [phone] Welt Sole Layer: HEATHER Porterefbronwyn Cleveland Clinic Avon HospitalComment on above:Result Comment: Fastin.6-24.9 30 min: 20-112 60 min: 29-88 90 min: 26-84 120 min: 22-79Performed By: #### LH, INSU, CDP, FSH, GLUF #### [address] [phone] Welt Sole Layer: SHARON Porterollection Info.hideNoMercy Health Perrysburg HospitalComment on above:Performed By: #### LH, INSU, CDP, FSH, GLUF #### [address] [address] Welt Sole Layer: Moisés Harp MDLuteinizing Hormoneon 37-19-3580Ffmgaaviqab Apzoahi82.0 mIU/mLNormal1.0-95.6Mercy [facility]alinga State HospitalComment on above:Result Comment: Reference Range: Male: 1.7-8.6 Ovulating Female: Follicular Phase 2.4-12.6 Ovulation Phase 14.0-95.6 Luteal Phase 1.0-11.4 Postmenopausal Female: 7.7-58.5Performed By: #### LH, INSU, CDP, FSH, GLUF #### [employer] [address] [place], [place] [phone] Welt Sole Layer: TEDDY Porter, Quanton 89-16-0937QPQ, Quant<1Normal<5MerModesto State HospitalComment on above:Result Comment: Non-preg premeno <=5 Postmeno <=8 Male <=3 If HCG results do not concur with clinical observations, additional testing to confirm results is recommended.Performed By: #### CBC, INSU, FERI, FEBC #### [employer] [address] [place], [place] [phone] Welt Sole Layer: TEDDY Porter, Quantitative, Pregnancyon 98-13-7297cCA QuantNINFINOVA FAIR OAKS HOSPITALComment on above: Non-preg premeno <=5 Postmeno <=8 Male <=3 If HCG results do not concur with clinical observations, additional testing to confirm results is recommended. [facility] AxiataST. JOHN OF GOD HOSPITALEDPROVon 48-08-9129YJGULDLGT Chief Complaint Patient presents with ??? Abdominal [...] is having passage of gas and stool. [place] Coma Scale Score: 15 Patient History Past [...] Ectopic, ovarian torsion. No associated fever. No lightheadedness,persistent nausea or systemic signs of illness. Recommended followup with OBGYN. [NF] ED Course User Index [NF] Verenice Llanes MD Diagnoses as of 01/30/2227 Right lower quadrant abdominal pain MDM Attestion Verenice Llanes MD 01/30/2227NormalUniversity [facility] Health [facility] Carthage HospitalNURSon 96-06-2571VEGXVO Pt arrives via private vehicle with complains of right lower abdominal pain that started a couple days ago. States the pain is very sharp. States also nauseous but denies vomiting or diarrhea. Also complains of abnormal vaginal bleeding that's been off and on for a couple weeks. States she does not normally have vaginal bleeding due to her BC. Pt is alert and oriented. PWD. NNDNormalMount Carmel Health SystemUrine Cultureon 61-73-6809Kmkkrrsk identified Cx Nom (U)Reason for Exam Dysuria Urine >100,000 colonies/ml mixed bacterial skin contaminants 2 Days PERFORMED BY: [place] [address] PATHOLOGIST TRAFFIC ENGINEERING DIRECTOR THEA MELCHOR M.D.The MetroHealth SystemComment on above: Performed By: #### VAGINITIS+ #### [facility] , #### CUU #### [facility] [address] [place] [address] USAVaginitis Plus (VG+)on 65-88-6730Dnbzozawx VaginaeHigh - 2 Critically abnormal.[facility] Arms HospitalComment on above:Order Comment: Reason for Exam Urinary frequencyPerformed By: #### VAGINITIS+ #### [facility] , #### CUU #### [facility] [address] [place] [address] QWZSKFG2Qbig - 2Critically abnormal.[facility] Arms HospitalComment on above:Order Comment: Reason for Exam Urinary frequency Performed By: #### VAGINITIS+ #### [facility] , #### CUU #### [place] [address] USACandida Albicans, NAANegativeNormalNegativeSheltering Arms HospitalComment on above:Order Comment: Reason for Exam Urinary frequencyResult Comment: This test was developed and its performance characteristics determined by [facility]. It has not been cleared or approved by the Food and Drug Administration.Performed By: #### VAGINITIS+ #### [facility] , #### CUU #### [place] [address] USACandida Glabrata, NAANegativeNormalNegPremier Health Atrium Medical CenterComment on above:Order Comment: Reason for Exam Urinary frequencyResult Comment: This test was developed and its performance characteristics determined by [facility]. It has not been cleared or approved by the Food and Drug Administration. PERFORMED BY: [place] [address] PATHOLOGIST TRAFFIC ENGINEERING DIRECTOR THEA MELCHOR M.D.Performed By: #### VAGINITIS+ #### [facility] , #### CUU #### [place] [address] USAChlamydia Trachomotis, NAANegativeNormalNegativeSheltering Arms HospitalComment on above:Order Comment: Reason for Exam Urinary frequencyPerformed By: #### VAGINITIS+ #### [facility] , #### CUU #### [place] [address] USAMegasphaeraHigh - 2Critically abnormal.[facility] Arms HospitalComment on above:Order Comment: Reason for Exam Urinary frequency Result Comment: Calculate total score by adding the 3 individual bacterial vaginosis (BV) marker scores together. Total score is interpreted as follows: Total score 0-1: Indicates the absence of BV. Total score 2: Indeterminate for BV. Additional clinical data should be evaluated to establish a diagnosis. Total score 3-6: Indicates the presence of BV. This test was developed and its performance characteristics determined by [facility]. It has not been cleared or approved by the Food and Drug Administration.Performed By: #### VAGINITIS+ #### [facility] , #### CUU #### [facility] [address] [place] [address] USANeisseria Gonorrhoeae, NAANegativeNormalNegativeSheltering Arms HospitalComment on above:Order Comment: Reason for Exam Urinary frequencyResult Comment: Performed at: =[address] [id number] Welt Sole Layer: Koki Lopez MD, Phone: [phone] By: #### VAGINITIS+ #### [facility] , #### CUU #### [place] [address] USATric Vag NAANegativeNormalNegativeSheltering Arms HospitalComment on above:Order Comment: Reason for Exam Urinary frequency Performed By: #### VAGINITIS+ #### [facility] , #### CUU #### [address]CBC W/DIFFon 89-30-2110KRF IMM GRANS0.0 10*3/uLNormal 0.0-0.2The [facility]el Health SystemComment on above:Performed By: #### 569[address] #### [facility] [address] [place] [address], USAABS NEUTROPHILS6.1 10*3/uLNormal1.6-7.6The [facility] Health SystemComment on above:Performed By: #### 760[address] #### [facility] [address] [place] [address], USABasophils (Bld) [#/Vol]0.1 10*3/uLNormal0.0-0.2The [facility] Health SystemComment on above:Performed By: #### 45562 #### [facility] [address] [facility] [address], USABasophils/100 WBC (Bld)0.5 %Normal0.0-1.0The [facility] Health SystemComment on above:Performed By: #### 74258 #### [facility] [address] [facility] [address], USAEosinophils (Bld) [#/Vol]0.3 10*3/uLNormal0.0-0.5The [facility] Health SystemComment on above:Performed By: #### 16880 #### [facility] [address] [facility] [address], USAEosinophils/100 WBC (Bld)2.5 %Normal0.0-6.0The [facility] Health SystemComment on above:Performed By: #### 12541 #### [facility] [address] [place] [address], USAErythrocyte distribution width (RBC) [Ratio]17.2 %High 11.5-15.0The [facility] Health SystemComment on above:Performed By: #### 10210 #### [facility] [address] [facility] [address], USAHematocrit (Bld) [Volume fraction]38.1 %Tuhcoa35.0-45.0The [facility] Health SystemComment on above:Performed By: #### 03693 #### [facility] [address] [place] [address], USAHemoglobin (Bld) [Mass/Vol]12.0 g/rWFtybzx30.0-15.0The [facility] Health SystemComment on above:Performed By: #### 52804 #### [facility] [address] [place] [address], USAIMMATURE GRANS0.3 %Normal0.0-1.0The [facility] Health SystemComment on above:Performed By: #### 54872 #### [facility] [address] [facility] [address], [facility] MEDICAL CENTERLymphocytes (Bld) [#/Vol]2.9 10*3/uLNormal1.2-4.0The [facility] Health SystemComment on above:Performed By: #### 54890 #### [facility] [address] [facility] [place] [address], [facility] MEDICAL CENTERLymphocytes/100 WBC (Bld)29.4 %Bmcguo81.0-45.0The [facility] Health SystemComment on above:Performed By: #### 58328 #### [facility] [address] [facility] [address], [facility] MEDICAL CENTERMCH (RBC) [Entitic mass]23.9 pgLow27.0-33.0The [facility] Health SystemComment on above:Performed By: #### 93157 #### [facility] [address] [facility] [address], [facility] MEDICAL CENTERMCHC (RBC) [Mass/Vol]31.5 g/dLLow32.0-35.0The [facility] SystemComment on above:Performed By: #### 43890 #### [facility] [address] [facility] [address], [facility] CENTERMCV (RBC) [Entitic vol]75.9 fLLow82.0-98.0The [facility] SystemComment on above:Performed By: #### 77479 #### [facility] [address] [facility] [address], USAMonocytes (Bld) [#/Vol]0.5 10*3/uLNormal0.1-1.0The [facility] SystemComment on above:Performed By: #### 01038 #### [facility] [address] [place] [address], USAMONOS5.1 %Normal5.0-12.0The [facility] Health SystemComment on above:Performed By: #### 80288 #### [facility] [address] [place] [address], USANeutrophils/100 WBC (Bld)62.2 %Pztcmt24.0-72.0The [facility] Health SystemComment on above:Performed By: #### 88589 #### [facility] [address] [place] [address], USANucleated RBC/100 WBC (Bld) [Ratio]0 %Normal0-0The [facility] Health SystemComment on above:Performed By: #### [id number] #### [facility] [address] [place] [address], USAPLAT [id number] 10*3/nNNgoasn571-553Okx [facility] SystemComment on above:Performed By: #### [id number] #### [facility] [address] [place] [address], USARBC (Bld) [#/Vol]5.02 10*6/uLHigh3.80-5.00The [facility] SystemComment on above:Performed By: #### [id number] #### [facility] [address] [place] [address], USAWBC (Bld) [#/Vol]9.82 10*3/uLNormal4.00-10.60The [facility] SystemComment on above:Performed By: #### [id number] #### [facility] [address] [place] [address], USACOMP METABOLIC PANELon 74-76-0510Xhqsuha [Mass/Vol]3.9 g/dL Normal3.5-5.7The [facility] SystemComment on above:Performed By: #### [id number] #### [facility] [address] [place] [address], USAALKALINE [id number] IU/FKntttm61-040Djb [facility] SystemComment on above:Performed By: #### [id number] #### [facility] [address] [place] [address], USAALT [Catalytic activity/Vol]15 U/LNormal7-52The [facility] SystemComment on above:Performed By: #### [id number] #### [facility] [address] [place] [address], USAAST [Catalytic activity/Vol]11 U/SRwy24-01Jdr [facility] SystemComment on above:Performed By: #### [id number] #### [facility] [address] [place] [address], USABilirubin [Mass/Vol]0.3 mg/dLNormal0.3-1.0The [facility] SystemComment on above:Performed By: #### 62636 #### [facility] [address] [place] [address], USACalcium [Mass/Vol]9.0 mg/dLNormal8.6-10.3The [facility] SystemComment on above:Performed By: #### 20926 #### [facility] [address] [place] [address], USAChloride [Moles/Vol]108 mmol/TDqou98-784Vnf [facility] SystemComment on above:Performed By: #### [id number] #### [facility] [address] [place] [address], USACO2 [Moles/Vol]26 mmol/WRqwbzc17-74Vwi [facility] SystemComment on above:Performed By: #### [id number] #### [facility] [address] [place] [address], USACreatinine [Mass/Vol]0.62 mg/dLNormal0.60-1.20The [facility] SystemComment on above:Performed By: #### [id number] #### [facility] [address] [place] [address], USAGFR/1.73 sq M.predicted among blacks MDRD (S/P/Bld) [Vol rate/Area]mL/min/{1.73_m2}Normal>60The [facility] Comment on above:Performed By: #### 75091 #### [facility] [address] [place] [address], USAGFR/1.73 sq M.predicted among non-blacks MDRD (S/P/Bld) [Vol rate/Area]mL/min/{1.73_m2}Normal>60The [facility] Comment on above:Performed By: #### 75413 #### [facility] [address] [address], USAGlucose [Mass/Vol]86 mg/bGBbjvjw51-205Ntj [facility] SystemComment on above:Performed By: #### [id number] #### [facility] [address] [place] [address], USAPotassium [Moles/Vol]3.7 mmol/LNormal3.5-5.1The [facility] Health SystemComment on above:Performed By: #### [id number] #### [facility] [address] [place] [address], USAProtein [Mass/Vol]6.8 g/dLNormal6.0-8.3The [facility] SystemComment on above:Performed By: #### [id number] #### [facility] [address] [place] [address], USASodium [Moles/Vol]139 mmol/WUhflrr265-837Teh [facility] SystemComment on above:Performed By: #### 96166 #### [facility] [address] [facility] [address], USAUrea nitrogen [Mass/Vol]6 mg/dLLow7-e [facility] SystemComment on above:Performed By: #### 72881 #### [address] [place] [address], USACT BRAIN WO CONTRASTon 16-01-1160DW BRAIN WO CONTRAST [facility] Department of Radiology [address] [place] [address] [place] [address] Patient Name: SUSY DIAZ : 1995 Sex: F Age: Race: White Pt. Location: [facility] Patient Status: E Ordered Date: 09/02/2021 12:50:00 [...] achievable Electronically signed: Tono Thomas. Transcribed by: [email or web address], User Resident: Electronically Signed by: TONO THOMAS @ 09/02/2021 01:34 PMNormalMedina HospitalComment on above:Order Comment: BleedCT CERVICAL SPINE WITHOUT CONTRASTon [id number] CERVICAL SPINE WITHOUT CONTRAST [facility] Department of Radiology [address] [place] [id number] Patient Name: SUSY DIAZ : 1995 Sex: F Age: Race: White Pt. Location: [facility] Patient Status: E Ordered Date: 09/02/2021 12:50:00 [...] appreciated. Electronically signed: Tono Thomas. Transcribed by: [email or web address], User Resident: Electronically Signed by: TONO THOMAS @ 09/02/2021 01:37 PMNormalThe [facility] SystemComment on above:Order Comment: Fractures LIPASE BLOODon 83-96-8482AISELS78 Units/UMexzcl67-83Djr [facility] SystemComment on above:Performed By: #### [id number] #### [facility] [address] [place] [address], USAPOC URINE PREGNANCYon 71-09-9865Mzja HCG ( test) Ql (U)NegativeNormalNEGATIVEThe [facility] SystemComment on above:Result Comment: Performed in Emergency Department.Performed By: #### [id number] #### [facility] [address] [place] [address], USAURINALYSIS REFLEXon 76-26-8990Jexlevtuys (U)SL CLOUDY AbnormalCLEARThe [facility] Health SystemComment on above:Order Comment: Criteria for reflexing a culture was not met. Please call the lab at 7668 within 24 hours of collection time if culture is neededPerformed By: #### [id number] #### [facility] [address] [place] [address], USABilirubin Ql (U)NegativeNormalNEGATIVEThe [facility] Health SystemComment on above:Order Comment: Criteria for reflexing a culture was not met. Please call the lab at 7668 within 24 hours of collection time if culture is neededPerformed By: #### [id number] #### [facility] [address] [place] [address], USAColor (U)YELLOWNormalYELLOWThe [facility] SystemComment on above:Order Comment: Criteria for reflexing a culture was not met. Please call the lab at 7668 within 24 hours of collection time if culture is neededPerformed By: #### [id number] #### [facility] [address] [place] [address], USAGlucose Ql (U)NegativeNormalNEGATIVEThe [facility] SystemComment on above:Order Comment: Criteria for reflexing a culture was not met. Please call the lab at 7668 within 24 hours of collection time if culture is neededPerformed By: #### [id number] #### [facility] [address] [place] [address], USAHemoglobin Ql (U)NegativeNormalNEGATIVEThe [facility] SystemComment on above:Order Comment: Criteria for reflexing a culture was not met. Please call the lab at 7668 within 24 hours of collection time if culture is neededPerformed By: #### [id number] #### [facility] [address] [place] [address], USAKETONENegativeNormalNEGATIVEThe [facility] SystemComment on above:Order Comment: Criteria for reflexing a culture was not met. Please call the lab at 7668 within 24 hours of collection time if culture is neededPerformed By: #### [id number] #### [facility] [address] [place] [address], USALEUK ESTERNegativeNormalNEGATIVEThe [facility] Health SystemComment on above:Order Comment: Criteria for reflexing a culture was not met. Please call the lab at 7668 within 24 hours of collection time if culture is neededPerformed By: #### [id number] #### [facility] [address] [place] [address], USAMICRO NOT DONENormalThe [facility] Comment on above:Order Comment: Criteria for reflexing a culture was not met. Please call the lab at 7668 within 24 hours of collection time if culture is neededResult Comment: Microscopics not performed on urines with negative chemical reactions unless requested in original orderPerformed By: #### [id number] #### [facility] [address] [facility] [place] [address], USANitrite Ql (U)NegativeNormalNEGATIVEThe [facility] SystemComment on above:Order Comment: Criteria for reflexing a culture was not met. Please call the lab at 7668 within 24 hours of collection time if culture is neededPerformed By: #### [id number] #### [facility] [address] [place] [address], USApH (U)7.0 [pH]Normal5.0-8.0The [facility] Health SystemComment on above:Order Comment: Criteria for reflexing a culture was not met. Please call the lab at 7668 within 24 hours of collection time if culture is neededPerformed By: #### [id number] #### [facility] [address] [place] [address], USAProtein Ql (U)NegativeNormalNEGATIVEThe [facility] SystemComment on above:Order Comment: Criteria for reflexing a culture was not met. Please call the lab at 7668 within 24 hours of collection time if culture is neededPerformed By: #### [id number] #### [facility] [address] [place] [address], USASPEC GRAV1.896Uhs4.015-1.020The [facility] Health SystemComment on above:Order Comment: Criteria for reflexing a culture was not met. Please call the lab at 7668 within 24 hours of collection time if culture is neededPerformed By: #### [id number] #### [facility] [address] [facility] [place] [address], [facility] CENTERPOC URINE PREGNANCYon 19-45-0289Mfyv HCG ( test) Ql (U)NegativeNormalNEGATIVEThe [facility] SystemComment on above:Performed By: #### [id number] #### [facility] [address] [facility] [place] [id number], [facility]ICAL CENTERMRI KNEE LEFT WO CONTRASTon 91-78-5606Ki acute findings or internal derangement. Anatomy associated with patellofemoral maltracking. [facility] RIS CONSOLIDATEDEXAMINATION: MRI OF THE LEFT KNEE WITHOUT CONTRAST, [...] No evidence of fracture. Normal marrow signal. [facility] Era Farooq, DO - 07/01/2021 EXAMINATION: MRI OF THE LEFT [...] internal derangement. Anatomy associated with patellofemoral maltracking. [employer] Work Phone: MRI KNEE LEFT WO CONTRASTOrdered By: Era Goldberg on 34-19-7985VvqnxTookitaki Phone: MRI KNEE LEFT WO CONTRASTon 33-86-2110Qdzxfaxih Study observation (narrative)[employer] Phone: Microscopic Urinalysison 06-19-2021-[employer] Bacteria, UAMANYAbnormalNoneMercy HealthEpithelial Cells UATOO NUMEROUS TO COUNT DriveFactorInterpretation and review of laboratory resultsAbnormalKettering Health – [facility] Center RBC, UA10 TO 20Kindred HealthcareRant Network TrihealthComment on above:Reference range defined for non- centrifuged specimen.WBC, UATOO NUMEROUS TO COUNTMercy HealthMercy Health , URINEon 05-96-3535Sath HCG ( test) Ql (U)NegativeNEGATIVE [facility] Hospitaly HealthComment on above:Specimens with hCG levels near the threshold of the test (25 mIU/mL) may give a negative or indeterminate result. In such cases, another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 HealthcareHKS Media[facility] Phone: basophils/100 WBC (Bld)0 %0 - 2 %[employer] Phone: differential TypeNOT REPORTEDKindred HealthcareHKS Media[facility] Phone: eosinophils/100 WBC (Bld)2 %1 - 4 %[employer] Phone: Hematocrit (Bld) [Volume fraction]42.5 %36.3 - 47.1 % [employer] Phone: Hemoglobin.gastrointestinal spec 1 Ql (Stl)12.9 g/dL 11.9 - 15.1 g/dLKindred HealthcareHKS MediaGroup Phone: Immature granulocytes/100 WBC (Bld)0 %0[facility] Phone: Interpretation and review of laboratory results AbnormalKindred HealthcareHKS Media[facility] Phone: lymphocytes/100 WBC (Bld)23 %Low24 - 43 %[employer] Phone: MCH (RBC) [Entitic mass]24.5 pgLow25.2 - 33.5 pgKindred HealthcareHKS MediaGroup Phone: MCHC (RBC) [Mass/Vol]30.4 g/dL28.4 - 34.8 g/dLKindred HealthcareHKS MediaGroup Phone: MCV (RBC) [Entitic vol]80.6 fLLow82.6 - 102.9 fLKindred HealthcareHKS MediaGroup Phone: Monocytes/100 WBC (Bld)5 %3 - 12 %[employer] Phone: NRBC Automated0.00.0 per 100 WBCKindred HealthcareHKS MediaGroup Phone: platelet distribution width (Bld) [Ratio]16.2 %High 11.8 - 14.4 %[employer] Phone: platelet EstimateNOT REPORTEDTookitaki Phone: platelet mean volume (Bld) [Entitic vol]11.9 fL8.1 - 13.5 fLKindred HealthcareHKS MediaGroup Phone: Platelets (Bld) [#/Vol]281 10*3/[employer] Phone: RBC (Bld) [#/Vol]5.27 10*6/uLHigh3.95 - 5.11 m/[employer] Phone: RBC (Bld) [#/Vol]ANISOCYTOSIS PRESENTKindred HealthcareHKS MediaGroup Phone: comment on above:MICROCYTOSIS PRESENTSegmented neutrophils/100 WBC (Bld)70 %High36 - 65 %[employer] Phone: Segs Kvekfbqw97.10HighKindred HealthcareHKS MediaGroup Phone: [phone] (Bld) [#/Vol]14.5 10*3/uLLahey Hospital & Medical CenterHKS MediaGroup Phone: WBC (Bld) [#/Vol]NOT REPORTEDKindred HealthcareHKS MediaGroup Phone: [facility] Phone: cT ABDOMEN PELVIS W IV CONTRAST Additional Contrast? NoneOrdered By: Hemalatha Conde on . Normal appendix. 2. Right-sided mild ureterectasis and hydronephrosis without evidence of radiopaque obstructing calculus. Findings suggest recent passage of right-sided urinary collecting system calculus as was suggested on prior study. Differential diagnostic considerations include associationwith persisting urinary tract infection. No CT evidence of pyelonephritis. Recommend clinical correlation. [employer] Phone: eXAMINATION: CT OF THE ABDOMEN AND PELVIS WITH [...] lung bases are well aerated. Pleural surfaces areunremarkable and no evidence of pleural effusion is [...] evidence of pelvic free fluid is seen. Peritoneum/Retroperitoneum: No evidence of retroperitoneal or int raperitoneal lymphadenopathy is identified. No evidence of intraperitoneal free fluid is seen. Bones/Soft Tissues: The bones, skeletal muscle bundles, fascial planes and subcutaneous soft tissues areunremarkable in appearance.[employer] Phone: eLuisito bright Incoming Radiant Results From [facility] - 10/11/2020 4:57 AM EDT EXAMINATION: CT [...] evidence of pelvic free fluid is seen. Peritoneum/Retroperitoneum: No evidence of retroperitoneal or intraperitoneal lymphadenopathy [...] CT evidence of pyelonephritis. Recommend clinical correlation. [employer] Phone: [employer] Phone: hcg Qualitative, SerumOrdered By: Hemalatha Conde on 37-08-1244sZL QualNegativeNEGATIVETookitaki Phone: comment on above:Specimens with hCG levels near the threshold of the test (25 mIU/mL) may give a negative or indeterminate result. In such cases, another test should be performed with a new specimen in 48-72 hours. If early is suspected clinically in this setting, correlation with quantitative serum b-hCG level is suggested. [employer] has confirmed the use of plasma for this test. This has not been cleared or approved by the U.S. Food and Drug Administration. The FDA has determined that such clearance is not necessary. [employer] Phone: Hepatic Function PanelOrdered By: Hemalatha Conde on [id number] [Mass/Vol]4.2 g/dL3.5 - 5.2 g/dLKindred HealthcareHKS MediaGroup Phone: albumin/Globulin [Mass ratio]1.1 {ratio}[employer] Phone: aLP (Bld) [Catalytic activity/Vol]100 U/L35 - 104 U/L [employer] Phone: aLT [Catalytic activity/Vol]13 U/L5 - 33 U/LMuniversity hospitals geneva medical centerChipRewards Phone: aST [Catalytic activity/Vol]13 U/L<32[facility] Phone: bilirubin [Mass/Vol]0.23 mg/dLLow0.3 - 1.2 mg/dLKindred HealthcareHKS Media[facility] Phone: bilirubin, Indirect0.13 mg/dL0.00 - 1.00 mg/dLKindred HealthcareHKS MediaGroup Phone: bilirubin.indirect [Mass/Vol]0.10 mg/dL<0.31[facility] Phone: Free PSA/Total PSA [Mass fraction]7.9 g/dL6.4 - 8.3 g/dLKindred HealthcareHKS MediaGroup Phone: GlobulinNOT REPORTED1.5 - 3.8 g/dLKindred HealthcareHKS MediaGroup Phone: Interpretation and review of laboratory results AbnormalKindred HealthcareHKS MediaGroup Phone: lipaseOrdered By: Hemalatha Conde on [id number] [Catalytic activity/Vol]21 U/L13 - 60 U/LMercy Health Work Phone: No Panel InformationOrdered By: Hemalatha Conde on [id number] Health Work Phone: Urinalysis with MicroscopicOrdered By: Hemalatha Conde on 10-11-2020-[facility] Work Phone: amorphous, UANOT REPORTEDNoneMercy Health Work Phone: bacteria, UAFEWAbnormalNoneMercy Health Work Phone: bilirubin UrineNegativeNEGATIVEMercy Health Work Phone: casts UA10 TO 20 HYALINE Reference range defined for non-centrifuged specimen.[facility] Issue Work Phone: color, UAYELLOWYELLOWMercy Health Work Phone: crystals, UANOT REPORTEDNone /HPFMercy Health Work Phone: epithelial Cells UA2 TO 5[facility] Work Phone: Glucose, UrNegativeNEGATIVEMercy Health Work Phone: Interpretation and review of laboratory results AbnormalMercy Health Work Phone: Ketones Ql (U)NegativeNEGATIVEMercy Health Work Phone: leukocyte esterase Test strip Ql (U)SMALLAbnormal NEGATIVEMercy Health Work Phone: Mucus, UANOT REPORTEDNoneMercy Health Work Phone: Nitrite, UrineNegativeNEGATIVEMercy Health Work Phone: Other Observations UANOT REPORTEDNOT REQ.[facility] Work Phone: hH, UA6.5[facility] Work Phone: protein, UA1+AbnormalNEGATIVEMercy Health Work Phone: rBC, UA5 TO 10[facility] Issue Work Phone: comment on above:Reference range defined for non- centrifuged specimen.Renal Epithelial, UANOT REPORTED0 /HPFMer Issue Work Phone: specific [place], UA1.016[facility] Work Phone: Trichomonas, UANOT REPORTEDNoneMercy Health Work Phone: Turbidity UACLEARCLEARSumma Health [facility]ton Campus Issue Work Phone: Urine HgbNegativeNEGATIVESumma Health [facility] Campus Issue Work Phone: Urobilinogen, UrineNormalNormalSumma Health [facility] Campus Health Work Phone: WBC, UA20 TO 50[facility] Work Phone: Yeast, UANOT REPORTEDNoneMetrinity health system Issue Work Phone: [facility] Issue Work Phone: cBC WITH AUTO DIFFERENTIALOrdered By: Alyse Roger on [id number] Eos #0.13[facility] Issue Work Phone: absolute Immature Granulocyte0.00[facility] Issue Work Phone: absolute Lymph #3.48[facility] Issue Work Phone: absolute [place] #0.94HighSumma Health Barberton Campus Issue Work Phone: basophils (Bld) [#/Vol]0.00 10*3/uLKindred HealthcareHealthsense Work Phone: basophils/100 WBC (Bld)0 %0 - 2 %[facility] Issue Work Phone: differential TypeNOT REPORTEDKindred HealthcareHealthsense Work Phone: eosinophils/100 WBC (Bld)1 %1 - 4 %[facility] Issue Work Phone: Hematocrit (Bld) [Volume fraction]43.1 %36.3 - 47.1 % [employer] Phone: Hemoglobin.gastrointestinal spec 1 Ql (Stl)12.7 g/dL 11.9 - 15.1 g/dLKindred HealthcareHKS MediaGroup Phone: Immature granulocytes/100 WBC (Bld)0 %0[facility] Phone: Interpretation and review of laboratory results AbnormalKindred HealthcareHKS MediaGroup Phone: lymphocytes/100 WBC (Bld)26 %24 - 44 %[employer] Phone: MCH (RBC) [Entitic mass]24.1 pgLow25.2 - 33.5 pgKindred HealthcareHKS MediaGroup Phone: MCHC (RBC) [Mass/Vol]29.5 g/dL28.4 - 34.8 g/dLKindred HealthcareHKS MediaGroup Phone: MCV (RBC) [Entitic vol]81.8 fLLow82.6 - 102.9 fLKindred HealthcareHKS MediaGroup Phone: Monocytes/100 WBC (Bld)7 %1 - 7 %[employer] Phone: Morphology Fantasma (Bld) [Interp]ANISOCYTOSIS PRESENTKindred HealthcareHKS MediaGroup Phone: Morphology Fantasma (Bld) [Interp]MICROCYTOSIS PRESENTKindred HealthcareHKS MediaGroup Phone: NRBC Automated0.00.0 per 100 WBCKindred HealthcareHKS MediaGroup Phone: platelet distribution width (Bld) [Ratio]17.0 %High 11.8 - 14.4 %[employer] Phone: platelet EstimateNOT REPORTEDKindred HealthcareHKS Media[facility] Phone: platelet mean volume (Bld) [Entitic vol]11.9 fL8.1 - 13.5 fLKindred HealthcareHKS MediaGroup Phone: platelets (Bld) [#/Vol]329 10*3/uLTookitaki Phone: [phone] (Bld) [#/Vol]5.27 10*6/uLHigh3.95 - 5.11 m/[employer] Phone: RBC (Bld) [#/Vol]NOT REPORTEDTookitaki Phone: segmented neutrophils/100 WBC (Bld)66 %36 - 66 %[employer] Phone: segs Absolute8.85HighTookitaki Phone: WBC (Bld) [#/Vol]13.4 10*3/uLRapleaf Phone: WBC (Bld) [#/Vol]NOT REPORTEDTookitaki Phone: [employer] Phone: cT ABDOMEN PELVIS WO CONTRAST Additional Contrast? NoneOrdered By: Alyse Roger on [id number] seen adjacent to the left renal pelvis and ureter suggestive of a recently passed stone. No hydroureteronephrosis is identified. No renal calculi.[employer] Phone: eXAMINATION: CT OF THE ABDOMEN AND PELVIS WITHOUT [...] Decision Support Exception - unselect if not asuspected or confirmed emergency medical condition->Emergency Medical Condition [...] to the left renal pelvis, as well asalong the course of the left ureter. No bladder calculi are seen. No renal calculi are identified. GI/Bowel: No ileus or obstruction is identified. No appendicitis or diverticulitis. Pelvis: No pelvic mass. The bladder, uterus and adnexal regions appear grossly unremarkable. No significant free fluid identified in the pelvis. Peritoneum/Retroperitoneum: No adenopathy or abdominal aortic aneurysm.Periureteral stranding. Bones/Soft Tissues: No acute subcutaneous soft tissue abnormality is identified. No acute osseous abnormality is identified. Spinal alignment appear stable.[employer] Work Phone: e, [facility] Incoming Radiant Results From Etaoshi/VividCortex - 09/08/2020 7:44 AM EDT EXAMINATION: CT [...] significant free fluid identified in the pelvis. Peritoneum/Retroperitoneum: No adenopathy or abdominal aortic aneurysm. Periureteral stranding. Bones/Soft Tissues: No acute subcutaneous soft tissue abnormality is identified. No acute osseous abnormality is identified. Spinal alignment appear stable. IMPRESSION: Stranding seen adjacent to the left renal pelvis and ureter suggestive of a recently passed stone. No hydroureteronephrosis is identified. No renal calculi. [place] Phone: [facility] Phone: comprehensive Metabolic PanelOrdered By: César Rodriguez on [id number] [Mass/Vol]3.1 g/dLLow3.5 - 5.2 g/dLKindred HealthcareHKS MediaGroup Phone: albumin/Globulin [Mass ratio]0.9 {ratio}LowKindred HealthcareHKS MediaGroup Phone: aLP (Bld) [Catalytic activity/Vol]79 U/L35 - 104 U/L [place] Phone: aLT [Catalytic activity/Vol]16 U/L5 - 33 U/LMMicroVision Phone: anion gap [Moles/Vol]12 mmol/L9 - 17 mmol/LMMicroVision Phone: aST [Catalytic activity/Vol]12 U/L<32[facility] Phone: bilirubin [Mass/Vol]mg/dLLow0.3 - 1.2 mg/dLKindred HealthcareH[facility] Phone: calcium [Mass/Vol]8.4 mg/dLLow8.6 - 10.4 mg/dLKindred HealthcareH[facility] Phone: chloride [Moles/Vol]110 mmol/LHigh98 - 107 mmol/LMMicroVision Phone: BO2 [Moles/Vol]21 mmol/L20 - 31 mmol/LMMicroVision Phone: creatinine [Mass/Vol]0.49 mg/dLLow0.50 - 0.90 mg/dL [place] Phone: Free PSA/Total PSA [Mass fraction]6.5 g/dL6.4 - 8.3 g/dLKindred HealthcareHKS [facility] Phone: GFR >60>60 mL/minKindred HealthcareHKS Media[facility] Phone: GFR Non->60>60 mL/minKindred HealthcareHKS Media[facility] Phone: GFR/1.73 sq M.predicted MDRD (S/P/Bld) [Vol rate/Area] [facility] Phone: comment on above:Average GFR for 20-29 years old: 116 mL/min/1.73sq m Chronic Kidney Disease: <60 mL/min/1.73sq m Kidney failure: <15 mL/min/1.73sq m eGFR calculated using average adult body mass. Additional eGFR calculator available at: http://www.[employer]/multiple_crcl_2012.htm GFR/1.73 sq M.predicted MDRD (S/P/Bld) [Vol rate/Area]NOT REPORTEDKind[facility] Phone: Glucose [Mass/Vol]115 mg/sBCrjq16 - 99 mg/dLKindred HealthcareH[facility] Phone: Interpretation and review of laboratory results AbnormalKindred HealthcareH[facility] Phone: potassium [Moles/Vol]4.0 mmol/L3.7 - 5.3 mmol/LMmiddletown hospital [employer] Phone: sodium [Moles/Vol]143 mmol/L135 - 144 mmol/LMuniversity hospitals geneva medical centery [employer] Phone: Urea nitrogen (BldV) [Mass/Vol]7 mg/dL6 - 20 mg/dL [facility] Phone: Urea nitrogen/Creatinine (Bld) [Mass ratio]NOT REPORTEDKindred HealthcareH[facility] Phone: [facility] Phone: HCG Qualitative, SerumOrdered By: César Rodriguez on [id number] QualNegativeNEGATIVETookitaki Phone: comment on above:Specimens with hCG levels near the threshold of the test (25 mIU/mL) may give a negative or indeterminate result. In such cases, another test should be performed with a new specimen in 48-72 hours. If early is suspected clinically in this setting, correlation with quantitative serum b-hCG level is suggested. [employer] has confirmed the use of plasma for this test. This has not been cleared or approved by the U.S. Food and Drug Administration. The FDA has determined that such clearance is not necessary. [place] Phone: lipaseOrdered By: César Rodriguez on [id number] [Catalytic activity/Vol]35 U/L13 - 60 U/LMercy [employer] Phone: [place] Phone: pREGNANCY, URINEOrdered By: Alyse Roger on [id number] HCG ( test) Ql (U)NegativeNEGATIVETookitaki Phone: comqoej on above:Specimens with hCG levels near the threshold of the test (25 mIU/mL) may give a negative or indeterminate result. In such cases, another test should be performed with a new specimen in 48-72 hours. If early is suspected clinically in this setting, correlation with quantitative serum b-hCG level is suggested. [place] Phone: sPECIMEN REJECTIONOrdered By: Alyse Roger on 09-08-2020-NOT REPORTEDKind[facility] Phone: Ordered TestCP,LIPKindred HealthcareHKS Media[facility] Phone: reason for RejectionUnable to perform testing: Specimen hemolyzed.[place] Phone: specimen source Nom (Unsp spec).BLOODTookitaki Phone: [facility] Phone: URINALYSIS WITH MICROSCOPICOrdered By: Alyse Roger on 09-08-2020-[facility] Work Phone: amorphous, UANOT REPORTEDNoneMercy Health Work Phone: bacteria, UAMANYAbnormalNoneMercy Health Work Phone: bilirubin UrineNegativeNEGATIVEMercy Health Work Phone: casts UA20 TO 50 Reference range defined for non- centrifuged specimen.[facility] Work Phone: color, UAYELLOWYELLOWMercy Health Work Phone: crystals, UANOT REPORTEDNone /HPFMercy Health Work Phone: epithelial Cells UA5 TO 10[facility] Work Phone: Glucose, UrNegativeNEGATIVEMercy Health Work Phone: Interpretation and review of laboratory results AbnormalMercy Health Work Phone: Ketones Ql (U)NegativeNEGATIVEMercy Health Work Phone: leukocyte esterase Test strip Ql (U)SMALLAbnormal NEGATIVEMercy Health Work Phone: Mucus, UANOT REPORTEDNoneMercy Health Work Phone: Nitrite, UrinePositiveAbnormalNEGATIVEMercy Health Work Phone: Other Observations UANOT REPORTEDNOT REQ.[facility] Work Phone: nH, UA6.0[facility] Work Phone: protein, UA2+AbnormalNEGATIVEMercy Health Work Phone: rBC, UA20 TO 50[facility] Work Phone: comment on above:Reference range defined for non- centrifuged specimen.Renal Epithelial, UANOT REPORTED0 /HPFMercy Health Work Phone: specific [place], UA1.018[facility] Work Phone: Trichomonas, UANOT REPORTEDNoneMercy Health Work Phone: Turbidity UACLOUDYAbnormalCLEARMer Health Work Phone: Urine HgbSMALLAbnormalNEGATIVESum[facility] Work Phone: Urobilinogen, UrineNormalNormalMer Health Work Phone: WBC, UA50 TO 100[facility] Work Phone: Yeast, UANOT REPORTEDNoneMetrinity health system Health Work Phone: [facility] Work Phone: XR CHEST (2 VW)Ordered By: Alyse Roger on 09-08-2020 Unremarkable radiographic views of the chest.[place] Phone: eXAMINATION: TWO XRAY VIEWS OF THE CHEST 09/08/2020 [...] is seen. Bones and soft tissues are unremarkable.[place] Phone: edi, [facility] Incoming Radiant Results From EUROBOX - 09/08/2020 6:21 AM EDT EXAMINATION: TWO [...] IMPRESSION: Unremarkable radiographic views of the chest. [place] Phone: [place] Phone: [id number], RapidOrdered By: Georgiana Larsen on [id number]-CoV-2 (COVID-19) RNA ASHELY+probe Ql (Unsp spec)Not detectedNot DetectedKindred HealthcareH[facility] Phone: comment on above: Rapid NAAT: The specimen is [...] management decisions. Fact sheet for Healthcare Providers: https://www.fda.gov/media/860931/download Fact sheet for Patients: https://www.fda.gov/media/861087/download Methodology: Isothermal Nucleic Acid Amplification Specimen Description.NASOPHARYNGEAL SWABKindred HealthcareHKS Media[facility] Phone: [facility] Phone: comprehensive Metabolic PanelOrdered By: Georgiana Larsen on [id number] [Mass/Vol]3.8 g/dL3.5 - 5.2 g/dLKindred HealthcareHKS [facility] Phone: albumin/Globulin RatioNOT REPORTEDKind[facility] Healthcare[facility] Phone: aLP (Bld) [Catalytic activity/Vol]90 U/L35 - 104 U/L [facility] Phone: aLT [Catalytic activity/Vol]14 U/L5 - 33 U/LMercChipRewards Phone: anion gap [Moles/Vol]13 mmol/L9 - 17 mmol/LMuniversity hospitals [facility] centery [employer] Phone: aST [Catalytic activity/Vol]13 U/L<32[facility] [employer] Phone: bilirubin [Mass/Vol]mg/dLLow0.3 - 1.2 mg/dLKindred Healthcare[facility] Phone: calcium [Mass/Vol]9.4 mg/dL8.6 - 10.4 mg/dLSumma Health Barber[facility] Campus [employer] Phone: Ihloride [Moles/Vol]104 mmol/L98 - 107 mmol/LMmiddletown hospital [employer] Phone: cO2 [Moles/Vol]19 mmol/LLow20 - 31 mmol/LMmiddletown hospital [employer] Phone: creatinine [Mass/Vol]0.51 mg/dL0.50 - 0.90 mg/dLKindred Healthcare[facility] Phone: Free PSA/Total PSA [Mass fraction]7.4 g/dL6.4 - 8.3 g/dLKindred HealthcareH[facility] Phone: GFR >60>60 mL/minKindred HealthcareHKS Media[facility] Phone: GFR Non->60>60 mL/minKindred HealthcareHKS [facility] Phone: GFR/1.73 sq M.predicted MDRD (S/P/Bld) [Vol rate/Area] [facility] [employer] Phone: comment on above:Average GFR for 20-29 years old: 116 mL/min/1.73sq m Chronic Kidney Disease: <60 mL/min/1.73sq m Kidney failure: <15 mL/min/1.73sq m eGFR calculated using average adult body mass. Additional eGFR calculator available at: http://www.[employer]/multiple_crcl_2012.htm GFR/1.73 sq M.predicted MDRD (S/P/Bld) [Vol rate/Area]NOT REPORTEDKind[facility] HealthcareH[facility] Phone: Glucose [Mass/Vol]210 mg/gNZobe63 - 99 mg/dLKindred HealthcareH[facility] Phone: Interpretation and review of laboratory results AbnormalKindred HealthcareH[facility] Phone: potassium [Moles/Vol]4.3 mmol/L3.7 - 5.3 mmol/LMuniversity hospitals [facility] centery [employer] Phone: sodium [Moles/Vol]136 mmol/L135 - 144 mmol/LMuniversity hospitals gen[facility] medical centery [employer] Phone: Urea nitrogen (BldV) [Mass/Vol]7 mg/dL6 - 20 mg/dL [facility] [employer] Phone: Urea nitrogen/Creatinine (Bld) [Mass ratio]NOT REPORTEDKind[facility] Healthcare[facility] Phone: [facility] Phone: [phone]-Cogcx TestOrdered By: Georgiana Larsen on [id number]-Dimer, Quant0.36[facility] Phone: comment on above: When combined with a low [...] more prevalent in patients with distal DVT. [place] Phone: HCG Screen, BloodOrdered By: Georgiana Larsen on [id number] QualNegativeNEGATIVEKindred HealthcareH[facility] Phone: comment on above:Specimens with hCG levels near the threshold of the test (25 mIU/mL) may give a negative or indeterminate result. In such cases, another test should be performed with a new specimen in 48-72 hours. If early is suspected clinically in this setting, correlation with quantitative serum b-hCG level is suggested. [place] Phone: TroponinOrdered By: Georgiana Larsen on 09-02-2020 Troponin InterpNOT REPORTEDKind[facility] Healthcare[facility] Phone: Troponin TNOT REPORTED<0.03 ng/mLKindred HealthcareH[facility] Phone: Troponin, High Sensitivity<60 - 14 ng/LMmiddletown hospital [employer] Phone: combiza on above: High Sensitivity Troponin values cannot be compared with other Troponin methodologies. Patients with high levels of Biotin oral intake (i.e >5mg/day) may have falsely decreased Troponin levels. Samples collected within 8 hours of biotin intake may require additional information for diagnosis. [place] Phone: HCL Qualitative, SerumOrdered By: Flakito Castro on [id number] QualNegativeNEGATIVETookitaki Phone: comypmy on above:Specimens with hCG levels near the threshold of the test (25 mIU/mL) may give a negative or indeterminate result. In such cases, another test should be performed with a new specimen in 48-72 hours. If early is suspected clinically in this setting, correlation with quantitative serum b-hCG level is suggested. [employer] has confirmed the use of plasma for this test. This has not been cleared or approved by the U.S. Food and Drug Administration. The FDA has determined that such clearance is not necessary. [place] Phone: XR CHEST PORTABLEOrdered By: Flakito Castro on 68-10-2262Gn acute process.[place] Phone: eXAMINATION: ONE XRAY VIEW OF THE CHEST 09/01/2020 10:39 am COMPARISON: 12/17/2019 HISTORY: ORDERINGSYSTEM PROVIDED HISTORY: subjective fever, sputum, hemoptysis TECHNOLOGIST PROVIDED HISTORY: subjective fever, sputum, hemoptysis Reason for Exam: portable, upright FINDINGS: The lungs are without acute focal process. There is no effusion or pneumothorax. The cardiomediastinal silhouette is withoutacute process. The osseous structures are without acute process.[place] Phone: edi, [facility] Incoming Radiant Results From Etaoshi/VividCortex - 09/01/2020 1:54 PM EDT EXAMINATION: ONE [...] without acute process. IMPRESSION: No acute process. [place] Phone: [facility] Phone: pREGNANCY, URINEOrdered By: Alix Mercedes on 33-38-4104Yret HCG ( test) Ql (U)NegativeNEGATIVETookitaki Phone: comment on above:Specimens with hCG levels near the threshold of the test (25 mIU/mL) may give a negative or indeterminate result. In such cases, another test should be performed with a new specimen in 48-72 hours. If early is suspected clinically in this setting, correlation with quantitative serum b-hCG level is suggested. [place] Phone: XR ANKLE LEFT (MIN 3 VIEWS)Ordered By: Alix Mercedes on [id number] radiographic views of the left ankle.[place] Phone: eXAMINATION: THREE XRAY VIEWS OF THE LEFT ANKLE [...] Bone mineralization is within normal limits. Surrounding softtissues are unremarkable.[place] Phone: edi, [facility] Incoming Radiant Results From [facility] - 08/28/2020 1:52 AM EDT EXAMINATION: THREE [...] Unremarkable radiographic views of the left ankle. [place] Phone: [place] Phone: no Panel InformationOrdered By: Magdy Mireles on . No evidence of an acute fracture or traumatic malalignment involving the left wrist or left handTookitaki Phone: eXAMINATION: 4 XRAY VIEWS OF THE LEFT WRIST; THREE XRAY VIEWS OF THE LEFT HAND 08/24/2020 6:14 pm COMPARISON: None. HISTORY: ORDERING SYSTEM PROVIDED HISTORY: Left hand and wrist pain, anatomical snuffbox tenderness TECHNOLOGIST PROVIDED HISTORY: Left hand and wrist pain, anatomical snuffbox tenderness Reason for Exam: heard a pop in left wrist while changing a tire pain to lateral aspect FINDINGS:Four views of the left wrist demonstrate no evidence of an acute fracture or traumatic malalignment. Soft tissues appear normal. Joint spaces are preserved. Three views of the left hand demonstrate no rmal alignment of the osseous structures. No evidence of an acute fracture or foreign body is present. Joint spaces are preserved.[place] Phone: ekaila brenna Incoming Radiant Results From Etaoshi/VividCortex - 08/25/2020 12:58 AM EDT EXAMINATION: 4 [...] involving the left wrist or left hand [place] Phone: [place] Phone: basic Metabolic Panel w/ Reflex to MGon 04-23-2020 Anion gap [Moles/Vol]9 mmol/L9 - 17 mmol/LMMicroVision Phone: bun/Cre RatioNOT REPORTEDTookitaki Phone: calcium [Mass/Vol]9.8 mg/dL8.6 - 10.4 mg/dLTookitaki Phone: chloride [Moles/Vol]101 mmol/L98 - 107 mmol/LMMicroVision Phone: cO2 [Moles/Vol]24 mmol/L20 - 31 mmol/LMMicroVision Phone: creatinine [Mass/Vol]0.59 mg/dL0.50 - 0.90 mg/dLKindred HealthcareH[facility] Phone: GFR >60>60 mL/minKindred HealthcareHKS Media[facility] Phone: GFR Non->60>60 mL/minKindred HealthcareHKS [facility] Phone: GFR/1.73 sq M predicted among non-blacks MDRD (S/P/Bld) [Vol rate/Area][place] Phone: comment on above:Average GFR for 20-29 years old: 116 mL/min/1.73sq m Chronic Kidney Disease: <60 mL/min/1.73sq m Kidney failure: <15 mL/min/1.73sq m eGFR calculated using average adult body mass. Additional eGFR calculator available at: http://www.[employer]/multiple_crcl_2012.htm GFR/1.73 sq M predicted among non-blacks MDRD (S/P/Bld) [Vol rate/Area]NOT REPORTEDKind[facility] Phone: Glucose [Mass/Vol]113 mg/gPKzbh82 - 99 mg/dLKindred HealthcareH[facility] Phone: Interpretation and review of laboratory results AbnormalKindred HealthcareH[facility] Phone: potassium [Moles/Vol]3.4 mmol/LLow3.7 - 5.3 mmol/L [facility] Phone: sodium [Moles/Vol]134 mmol/OBqm728 - 144 mmol/LMuniversity hospitals [facility]eva [facility] centerChipRew[facility] Phone: Urea nitrogen [Mass/Vol]7 mg/dL6 - 20 mg/dLKindred HealthcareHKS [facility] Phone: cBC Auto Differentialon [id number] (Bld) [#/Vol]0.05 10*3/uLKindred HealthcareHKS Media[facility] Phone: Basophils/100 WBC (Bld)1 %0 - 2 %[place] Phone: differential TypeNOT REPORTEDKindred HealthcareH[facility] Phone: Eosinophils (Bld) [#/Vol]0.22 10*3/uLTookitaki Phone: eosinophils/100 WBC (Bld)2 %1 - 4 %[place] Phone: erythrocyte distribution width (RBC) [Ratio]17.2 %High 11.8 - 14.4 %[place] Phone: Hematocrit (Bld) [Volume fraction]43.0 %36.3 - 47.1 % [place] Phone: Hemoglobin (Bld) [Mass/Vol]13.4 g/dL11.9 - 15.1 g/dL [place] Phone: Immature granulocytes (Bld) [#/Vol]10*3/[place] Phone: Immature granulocytes (Bld) [#/Vol]0 %0[place] Phone: Interpretation and review of laboratory results AbnormalKindred HealthcareHKS [facility] Phone: lymphocytes (Bld) [#/Vol]3.70 10*3/uLTookitaki Phone: lymphocytes/100 WBC (Bld)34 %24 - 43 %[place] Phone: MCH (RBC) [Entitic mass]25.1 pgLow25.2 - 33.5 pgKindred HealthcareHKS MediaGroup Phone: MCHC (RBC) [Mass/Vol]31.2 g/dL28.4 - 34.8 g/dLKindred HealthcareHKS Media[facility] Phone: MCV (RBC) [Entitic vol]80.7 fLLow82.6 - 102.9 fLTookitaki Phone: Monocytes (Bld) [#/Vol]0.77 10*3/[employer] Phone: Monocytes/100 WBC (Bld)7 %3 - 12 %[place] Phone: Platelet mean volume (Bld) [Entitic vol]11.6 fL8.1 - 13.5 COTookitaki Phone: [phone] (Bld) [#/Vol]306 10*3/[place] Phone: Platelets (Bld) [#/Vol]NOT REPORTEDKind[facility] Healthcare[facility] Phone: RBC (Bld) [#/Vol]5.33 10*6/uLHigh3.95 - 5.11 m/[employer] Phone: RBC morphology finding Nom (Bld)ANISOCYTOSIS PRESENT [place] Phone: comment on above:MICROCYTOSIS PRESENTSegmented neutrophils/100 WBC (Bld)56 %36 - 65 %[place] Phone: [phone] Absolute6.29[facility] Phone: [phone] (Bld) [#/Vol]0.0 10*3/uL0.0 per 100 WBCTookitaki Phone: [phone] (Bld) [#/Vol]11.1 10*3/[place] Phone: [phone] MorphologyNOT REPORTEDKindred HealthcareH[facility] Phone: cT ABDOMEN PELVIS W IV CONTRAST Additional Contrast? Noneon [id number]: CT OF THE ABDOMEN AND PELVIS WITH CONTRAST 04/23/2020 1:17 am TECHNIQUE: CT of the abdomen and pelvis was performed with the administration of intravenous contrast. Multiplanar reformattedimages are provided for review. Dose modulation, iterative reconstruction, and/or weight based adjustment of the mA/kV was utilized to reduce the radiation dose to as low as reasonably achievable. COMPARISON: 08/09/2019 HISTORY: ORDERING SYSTEM PROVIDED HISTORY: RLQ pain. Hx of PCOS TECHNOLOGIST PROVIDED HISTORY: RLQ pain. Hx of PCOS Decision Support Exception->Emergency Medical Condition (MA)Reason for Exam: RLQ pain. Hx of PCOS Acuity: Acute Type of Exam: Initial FINDINGS: Lower Chest: Lung bases clear. Organs: Unremarkable liver, spleen, pancreas, adrenals, and bilateral kidneys. GI/Bowel: No definite cholelithiasis. Normal appendix. Nonobstructed bowel loops. Pelvis: No adnexal mass. Incompletely distended urinary bladder. Peritoneum/Retroperitoneum: No free air or free fluid. No adenopathy. Intact abdominal aorta and its major branches. Bones/Soft Tissues: Intact osseous structures.[place] Phone: No acute finding in the abdomen and pelvis. Normal appendix.[place] Phone: ekaila, [facility] Incoming Radiant Results From [facility] - 04/23/2020 2:01 AM EST EXAMINATION: CT [...] No adnexal mass. Incompletely distended urinary bladder. Peritoneum/Retroperitoneum: No free air or free fluid. No adenopathy. Intact abdominal aorta and its major branches. Bones/Soft Tissues: Intact osseous structures. IMPRESSION: No acute finding in the abdomen and pelvis. Normal appendix. [place] Phone: HCG Qualitative, Serumon [phone] QualNegative NEGATIVETookitaki Phone: comment on above:Specimens with hCG levels near the threshold of the test (25 mIU/mL) may give a negative or indeterminate result. In such cases, another test should be performed with a new specimen in 48-72 hours. If early is suspected clinically in this setting, correlation with quantitative serum b-hCG level is suggested. [employer] has confirmed the use of plasma for this test. This has not been cleared or approved by the U.S. Food and Drug Administration. The FDA has determined that such clearance is not necessary. Hepatic Function Panelon [id number] [Mass/Vol]3.9 g/dL3.5 - 5.2 g/dLTookitaki Phone: albumin/Globulin [Mass ratio]1.0 {ratio}[place] Phone: aLP [Catalytic activity/Vol]90 U/L35 - 104 U/LMMicroVision Phone: aLT [Catalytic activity/Vol]10 U/L5 - 33 U/LMMicroVision Phone: aST [Catalytic activity/Vol]11 U/L<32[facility] Phone: bilirubin Ql (U)0.16 mg/dLLow0.3 - 1.2 mg/dLTookitaki Phone: Qilirubin, Indirect0.07 mg/dL0.00 - 1.00 mg/dLTookitaki Phone: Lilirubin.direct [Mass/Vol]0.09 mg/dL<0.31[place] Phone: Globulin (S) [Mass/Vol]NOT REPORTED1.5 - 3.8 g/dLTookitaki Phone: Interpretation and review of laboratory results AbnormalTookitaki Phone: protein [Mass/Vol]7.9 g/dL6.4 - 8.3 g/dLTookitaki Phone: lipaseon [phone] [Catalytic activity/Vol]25 U/L13 - 60 U/LMercy Issue Work Phone: Magnesiumon [id number] [Mass/Vol]1.7 mg/dL1.6 - 2.6 mg/dLTookitaki Phone: Otheron [phone], pn Incoming Radiant Results From Etaoshi/VividCortex - 04/23/2020 4:11 AM EST EXAMINATION: PELVIC [...] of ovarian torsion. No evidence of PCOS. [place] Phone: eXAMINATION: PELVIC ULTRASOUND; ULTRASOUND OF THE SCROTUM/TESTICLES WITH COLOR DOPPLER FLOW EVALUATION 04/23/2020 TECHNIQUE: Transvaginal pelvic ultrasound was performed. Color Doppler evaluation was pe rformed. COMPARISON: CT abdomen and pelvis with contrast April 23, 2020. HISTORY: ORDERING SYSTEM PROVIDED HISTORY: RLQ pain, PCOS r/o torsion TECHNOLOGIST PROVIDED HISTORY: RLQ pain, PCOS r/o torsionFINDINGS: Measurements: Uterus: 8.1 cm in length and [...] flow. Free Fluid: No evidence of free fluid.[place] Phone: Unremarkable pelvic ultrasound. No sonographic evidence of ovarian torsion. No evidence of PCOS.[place] Phone: direct ExamNegativeDriveFactor Work Phone: URINALYSIS WITH MICROSCOPICon [phone], UA NOT REPORTEDNoneMetrinity health system Issue Work Phone: bacteria, UAMANYAbnormalNoneMetrinity health system Issue Work Phone: bilirubin UrineNegativeNEGMission Hospital McDowellHKS MediaGroup Phone: casts UA5 TO 10 HYALINE Reference range defined for non-centrifuged specimen.[place] Phone: color, UAYELLOWYELLOWSumma Health [facility] Issue Work Phone: crystals, UACALCIUM OXALATEAbnormalNone /HPFKindred HealthcareHealthsense Work Phone: crystals, UAMANYAbnormalNone /[facility] Work Phone: epithelial Cells UA10 TO 20[facility] [employer] Phone: Glucose, UrNegativeNEGATIVEKindred HealthcareHealthsense Work Phone: Interpretation and review of laboratory results AbnormalMercy Health Work Phone: Ketones Ql (U)TRACEAbnormalNEGATIVEMercy Health Work Phone: leukocyte esterase Test strip Ql (U)MODERATEAbnormal NEGATIVEMercy Health Work Phone: Mucus, UANOT REPORTEDNoneMercy Health Work Phone: Nitrite, UrineNegativeNEGATIVEMercy Health Work Phone: Other Observations UANOT REPORTEDNOT REQ.[facility] Work Phone: eH, UA6.0[facility] Work Phone: protein (U) [Mass/Vol]1+AbnormalNEGATIVEMercy Health Work Phone: QBC (U) [#/Vol]2 TO 5[facility] Work Phone: comment on above:Reference range defined for non- centrifuged specimen.Renal Epithelial, UANOT REPORTED0 /HPFMercy Health Work Phone: specific [place], UA1.027[facility] Work Phone: Trichomonas, UANOT REPORTEDNoneMercy Health Work Phone: Turbidity UATURBIDAbnormalCLEARMercy Health Work Phone: Urine HgbTRACEAbnormalNEGATIVEMercy Health Work Phone: Urobilinogen, UrineNormalNormalMercy Health Work Phone: WBC, UATOO NUMEROUS TO COUNTMercy Health Work Phone: Yeast, UANOT REPORTEDNoneMercy Health Work Phone: -[facility] Work Phone: VAGINITIS DNA PROBEon [id number] ExamMethod of testing is a DNA probe intended for detection and identification of Manuela species, Gardnerella vaginalis, and Trichomonas vaginalis nucleic acid in vaginal fluid specimens from patients with symptoms of vaginitis/vaginosis.[employer] Phone: direct ExamPositiveAbnormalTookitaki Phone: Interpretation and review of laboratory results AbnormalKindred HealthcareHKS MediaGroup Phone: special RequestsNOT REPORTEDTookitaki Phone: specimen Description.VAGINAKindred HealthcareHKS MediaGroup Phone: XR CHEST (2 VW)on [id number] significant abnormalities detected.[employer] ROXANEEXAMINATION: TWO XRAY VIEWS OF THE CHEST 12/17/2019 8:58 pm COMPARISON: 12/01/2019 HISTORY: ORDERING SYSTEM PROVIDED HISTORY: Cough, reproducible chest pain TECHNOLOGIST PROVIDED HISTORY: Cough, reproducible chest pain FINDINGS: The cardiomediastinal silhouette is normal. No focal consolidation. The pulmonary vascularity is normal. There is no pleural effusion or pneumothorax. Osseous structures grossly intact.MavenJosé Mhpn Incoming Radiant Results From Etaoshi/VividCortex - 12/17/2019 9:11 PM EDT EXAMINATION: TWO XRAY VIEWS OF THE CHEST 12/17/2019 8:58 pm COMPARISON: 12/01/2019 HISTORY: ORDERING SYSTEM PROVIDED HISTORY: Cough, reproducible chest pain TECHNOLOGIST PROVIDED HISTORY: Cough, reproducible chest pain FINDINGS: The cardiomediastinal silhouette is normal. No focal consolidation. The pulmonary vascularity is normal. There is no pleural effusion or pneumothorax. Osseous structures grossly intact. IMPRESSION: No significant abnormalities detected. Maven, Social Game UniverseXR CHEST PORTABLEon [id number] acute process.Maven, ROXANEEXAMINATION: ONE XRAY VIEW OF THE CHEST 12/01/2019 1:03 am COMPARISON: November 28, 2019 HISTORY: ORDERING SYSTEM PROVIDED HISTORY: cough TECHNOLOGIST PROVIDED HISTORY: cough Reason for Exam: cough Acuity: Acute Type of Exam: Initial Additional signs and symptoms: Cough, hemoptysis Relevant Medical/S urgical History: Cough, hemoptysis FINDINGS: The lungs are without acute focal process. There is noeffusion or pneumothorax. The cardiomediastinal silhouette is without acute process. The osseous structures are without acute process.[facility] Arledia ARROXANEEdi, Mhpn Incoming Radiant Results From EMKineticse/Pacs - 12/01/2019 1:09 AM EDT EXAMINATION: ONE [...] without acute process. IMPRESSION: No acute process. [facility] Arledia AR ROXANEAdinanimoe [id number] I.cardiac [Mass/Vol]NOT REPORTEDSumma Health Barberton Campus IssueRAY COUNTY MEMORIAL [facility] ROXANEPraneeth T.cardiac [Mass/Vol]NOT REPORTED<0.03 ng/mL [facility], Vicky, High Sensitivity<60 - 14 ng/LMAvita Health [facility], [place] Comment on above: High Sensitivity Troponin values cannot be compared with other Troponin methodologies. Patients with high levels of Biotin oral intake (i.e >5mg/day) may have falsely decreased Troponin levels. Samples collected within 8 hours of biotin intake may require additional information for diagnosis. Troponin I.cardiac [Mass/Vol]NOT REPORTEDSumma Health [facility] IssueRAY COUNTY MEMORIAL HOSPITALVicky T.cardiac [Mass/Vol]NOT REPORTED<0.03 ng/mLDiley [facility], Vicky, High Sensitivity <60 - 14 ng/LMAvita Health System Bu[facility], ROXANEComment on above: High Sensitivity Troponin values cannot be compared with other Troponin methodologies. Patients with high levels of Biotin oral intake (i.e >5mg/day) may have falsely decreased Troponin levels. Samples collected within 8 hours of biotin intake may require additional information for diagnosis. BASIC METABOLIC PANELon [id number] gap [Moles/Vol]11 mmol/L9 - 17 mmol/L [facility] Arledia [place], ROXANEBun/Cre RatioNOT REPORTEDSumma Health [facility] Campus IssueRAY COUNTY MEMORIAL [facility], ROXANECalcium [Mass/Vol]9.2 mg/dL8.6 - 10.4 mg/dLK[facility]- [place], KYChloride [Moles/Vol]104 mmol/L98 - 107 mmol/LMmiddletown hospital Health- [place], KYCO2 [Moles/Vol]24 mmol/L20 - 31 mmol/L [facility]- [place], KYCreatinine [Mass/Vol]0.51 mg/dL0.5 - 0.9 mg/dLKettering Health [facility]- [place], KYGFR >60>60 mL/minKettering Health [facility]- [place], KYGFR Non->60>60 mL/minKettering Health [facility]- [place], KYGFR/1.73 sq M predicted among non- blacks MDRD (S/P/Bld) [Vol rate/Area]NOT REPORTEDKettering Health [facility]- [place], KYGFR/1.73 sq M predicted among non-blacks MDRD (S/P/Bld) [Vol rate/Area][facility], [place] Comment on above:Average GFR for 20-29 years old: 116 mL/min/1.73sq m Chronic Kidney Disease: <60 mL/min/1.73sq m Kidney failure: <15 mL/min/1.73sq m eGFR calculated using average adult body mass. Additional eGFR calculator available at: http://www.[employer]/multiple_crcl_2011.htm Glucose [Mass/Vol]136 mg/aJGjet76 - 99 mg/dLDiley Ridge Medical Center, KYInterpretation and review of laboratory resultsAbnormalDiley Ridge Medical Center, KYPotassium [Moles/Vol]3.8 mmol/L3.7 - 5.3 mmol/LMTogus VA Medical Center- [place], KYSodium [Moles/Vol]139 mmol/L135 - 144 mmol/LMTogus VA Medical Center- [place], KYUrea nitrogen [Mass/Vol]6 mg/dL6 - 20 mg/dLThe [facility] [place], KYCBC Auto Differentialon [id number] (Bld) [#/Vol]0.05 10*3/uLKettering Health [facility]- [place], KYBasophils/100 WBC (Bld)0 %0 - 2 %[facility]- [place], KYDifferential TypeNOT REPORTEDDiley Ridge Medical Center, KYEosinophils (Bld) [#/Vol]0.18 10*3/[facility], KYEosinophils/100 WBC (Bld)1 %1 - 4 %[facility], KYErythrocyte distribution width (RBC) [Ratio]16.7 %High11.8 - 14.4 %[facility], KYHematocrit (Bld) [Volume fraction]39.5 %36.3 - 47.1 %[facility], KYHemoglobin (Bld) [Mass/Vol]12.5 g/dL11.9 - 15.1 g/dLDiley Ridge Medical Center, KYImmature granulocytes (Bld) [#/Vol]0 %0[facility], KYImmature granulocytes (Bld) [#/Vol]0.05 10*3/[facility], KYInterpretation and review of laboratory resultsAbnormalDiley Ridge Medical Center, KYLymphocytes (Bld) [#/Vol]1.65 10*3/[facility], KYLymphocytes/100 WBC (Bld)13 %Low24 - 43 % [facility], KYMCH (RBC) [Entitic mass]26.7 pg25.2 - 33.5 pgDiley Ridge Medical Center, KYMCHC (RBC) [Mass/Vol]31.6 g/dL28.4 - 34.8 g/dLDiley Ridge [facility], KYMCV (RBC) [Entitic vol]84.2 fL82.6 - 102.9 fLDiley Ridge Medical Center, KYMonocytes (Bld) [#/Vol]1.07 10*3/[facility], KYMonocytes/100 WBC (Bld)8 %3 - 12 %[facility], KYPlatelet mean volume (Bld) [Entitic vol]11.7 fL8.1 - 13.5 fLDiley Ridge Medical Center, KYPlatelets (Bld) [#/Vol]209 10*3/[facility], KYPlatelets (Bld) [#/Vol]NOT REPORTEDDiley Ridge Medical Center, KYRBC (Bld) [#/Vol]4.69 10*6/uL3.95 - 5.11 m/uLSummerville, KYRB morphology finding Nom (Bld)ANISOCYTOSIS PRESENTDiley Ridge Medical Center, NHSegmented neutrophils/100 WBC (Bld)78 %High36 - 65 % [facility] CenterROXANESegs Absolute9.91HighSummerville, KYWBC (Bld) [#/Vol] 12.9 10*3/uLCambridge, KYWBC (Bld) [#/Vol]0.0 10*3/uL0.0 per 100 WBC [facility], NHWBC MorphologyNOT REPORTEDSummerville, KYD-DIMER, QUANTITATIVEon [id number]-Dimer, Quant0.27mg/L FEAnsley, KYComment on above: When combined with a low [...] patients with distal DVT. HCG Qualitative, Serumon [id number] QualNegativeNEGATIVESummerville, [place] Comment on above:Specimens with hCG levels near the threshold of the test (25 mIU/mL) may give a negative or indeterminate result. In such cases, another test should be performed with a new specimen in 48-72 hours. If early is suspected clinically in this setting, correlation with quantitative serum b-hCG level is suggested. [facility] Cr[facility] HospitalDialective has confirmed the use of plasma for this test. This has not been cleared or approved by the U.S. Food and Drug Administration. The FDA has determined that such clearance is not necessary. SPECIMEN REJECTIONon [id number] TestCDPMAvita Health System Bucyrus HospitalROXANEReason for RejectionUnable to perform testing: Specimen clotted.[facility] CenterROXANE Specimen source Nom (Unsp spec).BLOODDiley Ridge Medical CenterROXANE-NOT REPORTEDDiley Ridge Medical CenterROXANEXR CHEST PORTABLEon [id number]: ONE XRAY VIEW OF THE CHEST 11/28/2019 9:54 pm COMPARISON: None. HISTORY: ORDERING SYSTEM PROVIDED HISTORY: chest pain, shortness of breath TECHNOLOGIST PROVIDED HISTORY: chest pain, shortness of breath Reason for Exam: upr Acuity: Unknown Type of Exam: Unknown FINDINGS: The lungs are clear. The cardiac and mediastinal contours are normal. There is no pleural effusion or pneumothorax.No acute osseous abnormality is identified.[facility] CenterMargarette acute cardiopulmonary abnormality.[facility] Luisito Kumar Incoming Radiant Results From Etaoshi/Quant the Newss - 11/28/2019 10:21 PM EDT EXAMINATION: ONE [...] is identified. IMPRESSION: No acute cardiopulmonary abnormality. [facility] ROXANEStrep Gr A Direct Agon [id number] Gr A Direct Ag Specimen Description .THROAT Special Requests NOT REPORTED Direct Exam Rapid Strep A negative. A negative Rapid Group A Strep Screen result does not rule out the possibility of Group A Streptococci in the specimen. A Group A Strep DNA test is available upon request. Report Status FINAL 09/10/2019NoLakeHealth TriPoint Medical CenterComment on above: Performed By: #### SGPA #### [facility] [address] [place] [address] Welt Sole Layer: Shabbir Torres, MDCT Chest Pulmonary Embolism W Contraston [id number]: CTA OF THE CHEST 08/09/2019 12:59 am TECHNIQUE: CTA of the chest was performed after the administration of intravenous contrast. Multiplanar reformatted images are provided for review. MIP images are provided for review. Dose modulation, iterative reconstruction, and/or weight based adju stment of the mA/kV was utilized to reduce [...] artery is normal in caliber. Mediastinum: The heartis not enlarged. No pericardial effusion. No mediastinal mass. Lungs/pleura: No airspace consolidation. Multifocal dependent ground-glass opacities possibly represent atelectasis, edema, or infectious/inflammatory process. Upper Abdomen: See separate abdomen pelvis CT. Soft Tissues/Bones: No acute bone or soft tissue abnormality.[facility]- [place], José, brenna Incoming Radiant Results From Etaoshi/VividCortex - 08/09/2019 1:51 AM EDT EXAMINATION: CTA [...] clinical symptoms. No evidence of pulmonary embolism. [facility]- [place], KYDependent ground-glass opacities possibly edema or atelectasis. Pneumonitis or less likely pneumonia are also considered. Please correlate appropriate clinical symptoms. No evidence of pulmonary embolism.[facility]- [place], KYHCG Qualitative, Serumon [id number] QualNegativeNEGATIVEThe [facility] [place], KYComment on above:Specimens with hCG levels near the threshold of the test (25 mIU/mL) may give a negative or indeterminate result. In such cases, another test should be performed with a new specimen in 48-72 hours. If early is suspected clinically in this setting, correlation with quantitative serum b-hCG level is suggested. CBC Auto Differentialon [id number] (Bld) [#/Vol]0.00 10*3/[facility] [place], KYBasophils/100 WBC (Bld)0 %0 - 2 %[facility], KYDifferential TypeNOT REPORTEDThe [facility] [place], KYEosinophils (Bld) [#/Vol]0.30 10*3/uLKettering Health – [facility]- [place], KYEosinophils/100 WBC (Bld)3 %0 - 4 %[facility], KYErythrocyte distribution width (RBC) [Ratio]16.5 %High11.5 - 14.9 %[facility], [place] Hematocrit (Bld) [Volume fraction]39.4 %36 - 46 %[facility]- [place], KYHemoglobin (Bld) [Mass/Vol]12.8 g/dL12 - 16 g/dLKettering Health – [facility]- [place], KYInterpretation and review of laboratory resultsAbnormalThe [facility] System [place], KYLymphocytes (Bld) [#/Vol]2.90 10*3/[facility]- [place], KYLymphocytes/100 WBC (Bld)27 %24 - 44 % [facility]- [place], KYMCH (RBC) [Entitic mass]25.6 pgLow26 - 34 pgKettering Health – [facility]- [place], ROXANEMCHC (RBC) [Mass/Vol]32.4 g/dL31 - 37 g/dLSumma Health [facility]- [place], KYMCV (RBC) [Entitic vol]79.0 fLLow80 - 100 fLKettering Health – Soin [facility] Center- [place], KYMonocytes (Bld) [#/Vol] 0.70 10*3/uLSumma Health [facility]- [place], KYMonocytes/100 WBC (Bld)7 %1 - 7 %[facility]- [place], ROXANEPlatelet mean volume (Bld) [Entitic vol]9.5 fL6 - 12 fLKettering Health – Soin Medical Center- [place], KYPlatelets (Bld) [#/Vol]NOT REPORTEDKettering [facility]- [place], KYPlatelets (Bld) [#/Vol] 238 10*3/[facility]- [place], KYRBC (Bld) [#/Vol]4.99 10*6/uL4 - 5.2 m/[facility]- [place], KYRBC morphology finding Nom (Bld)NOT REPORTEDKettering Health [facility]- [place], ROXANE Segmented neutrophils/100 WBC (Bld)63 %36 - 66 %[facility]- [place], ROXANESegs Absolute6.70[facility]- [place], KYWBC (Bld) [#/Vol]10.7 10*3/[facility]- [place], KYWBC (Bld) [#/Vol]NOT REPORTEDper 100 WBCKettering Health – [facility]- [place], KYWBC MorphologyNOT REPORTEDKettering Health [facility]- [place], ROXANEComprehensive Metabolic Panel w/ Reflex to MGon [id number] [Mass/Vol]3.6 g/dL3.5 - 5.2 g/dLKettering Health [facility]- [place], [place] Albumin/Globulin [Mass ratio]NOT REPORTEDSum[facility]- [place], KYALP [Catalytic activity/Vol]86 U/L35 - 104 U/LMTogus VA Medical Center- [place], KYALT [Catalytic activity/Vol] 11 U/L5 - 33 U/LMTogus VA Medical Center- [place], KYAnion gap [Moles/Vol]11 mmol/L9 - 17 mmol/L [facility]- [place], KYAST [Catalytic activity/Vol]11 U/L<32MerHarborview Medical Center- [place], [place] Bilirubin Ql (U)0.17 mg/dLLow0.3 - 1.2 mg/dLKettering Health [facility]- [place], KYBun/Cre RatioNOT REPORTEDMerHarborview Medical Center- [place], KYCalcium [Mass/Vol]9.1 mg/dL8.6 - 10.4 mg/dLKettering Health [facility]- [place], KYChloride [Moles/Vol]102 mmol/L98 - 107 mmol/LMmiddletown hospital [facility]- [place], [place] CO2 [Moles/Vol]26 mmol/L20 - 31 mmol/LMuniversity hospitals geneva medical centery Health- [place], KYCreatinine [Mass/Vol] 0.67 mg/dL0.5 - 0.9 mg/dLKettering Health [facility]- [place], KYGFR >60>60 mL/min [facility], KYGFR Non->60>60 mL/minDiley Ridge Medical Center, [place] GFR/1.73 sq M predicted among non-blacks MDRD (S/P/Bld) [Vol rate/Area][facility], KYComment on above:Average GFR for 20-29 years old: 116 mL/min/1.73sq m Chronic Kidney Disease: <60 mL/min/1.73sq m Kidney failure: <15 mL/min/1.73sq m eGFR calculated using average adult body mass. Additional eGFR calculator available at: http://www.[employer]/multiple_crcl_2012.htm GFR/1.73 sq M predicted among non-blacks MDRD (S/P/Bld) [Vol rate/Area]NOT REPORTEDDiley Ridge Medical Center, KYGlucose [Mass/Vol]94 mg/dL70 - 99 mg/dLDiley Ridge Medical Center, KYInterpretation and review of laboratory resultsAbnormalKettering [facility]- [place], KYPotassium [Moles/Vol]3.9 mmol/L3.7 - 5.3 mmol/LMuniversity hospitals geneva medical centery [facility]- [place], KYProtein [Mass/Vol]7.3 g/dL6.4 - 8.3 g/dLThe [facility] [place], KYSodium [Moles/Vol]139 mmol/L 135 - 144 mmol/LMTogus VA Medical Center- [place], KYUrea nitrogen [Mass/Vol]9 mg/dL6 - 20 mg/dL [facility] [place], KYLipaseon [id number] [Catalytic activity/Vol]25 U/L13 - 60 U/LMercy Health- [place], KYMicroscopic Urinalysison [id number], UA1+ AbnormalNoneMercy Health- [place], KYBacteria, UAMODERATEAbnormalNoneMercy Health- [place], KYCasts UANOT REPORTED/LPFMercy Health- [place], KYCrystals, UANOT REPORTEDNone /HPFMercy Health- [place], KYEpithelial Cells UA5 TO 10/HPFMercy Health- [place], [place] Interpretation and review of laboratory resultsAbnormalMercy Health- [place], [place] Mucus, UANOT REPORTEDNoneMercy Health- [place], KYOther Observations UANOT REPORTED NOT REQ.[facility]- [place], KYRBC (U) [#/Vol]20 TO 50/HPFMercy Health- [place], KYRenal Epithelial, UANOT REPORTED0 /HPFMercy Health- [place], KYTrichomonas, UANOT REPORTED NoneMercy Health- [place], KYWBC, UA10 TO 20/HPFMercy Health- [place], KYYeast, UANOT REPORTEDNoneMercy Health- [place], [place]-[facility]- [place], KYOtheron [id number] granulocytes (Bld) [#/Vol]NOT REPORTEDMercy Health- [place], KYUrinalysis Reflex to Cultureon [id number] UrinePresumptive positive. Unable to confirm due to unavailability of reagent.AbnormalNEGATIVEMercy Health- [place], KYColor, UADARK YELLOWAbnormalYELLOWMercy Health- [place], KYGlucose, UrNegativeNEGATIVEMercy Health- [place], KYInterpretation and review of laboratory resultsAbnormalMercy Health- [place], KYKetones Ql (U)NegativeNEGATIVEMercy Health- [place], KYLeukocyte esterase Test strip Ql (U)MODAbnormalNEGATIVEMercy Health- [place], KYNitrite, UrineNegative NEGATIVEMercy Health- [place], KYpH, UA6.0[facility]- [place], KYProtein (U) [Mass/Vol] 1+AbnormalNEGATIVEMercy Health- [place], KYSpecific [place], UA1.023[facility]- [place], KYTurbidity UATURBIDAbnormalCLEARMAvita Health System [facility], KYUrinalysis CommentsNOT REPORTEDDiley Ridge Medical Center, KYUrine HgbLARGEAbnormalNEGATIVEDiley Ridge Medical Center, [place] Urobilinogen, UrineNormalNormalD[facility], KYCULTURE THROATon 04-21-2019 CULTURE THROATCulture Observations: Unable to obtain NAKITA for organism #1 [...] <=0.25 S F Levofloxacin <=0.12 S F Trimethoprim/Sulfamethoxazole <=20 S F ORGANISM 3 Pseudomonas putida ANTIBIOTIC M.I.C RX STATUS Amikacin S F Ceftazidime S F Ceftriaxone S F Ciprofloxacin S F Gentamicin S F Imipenem S F Levofloxacin S F Piperacillin/Tazobactam S F Tobramycin S F Trimethoprim/Sulfamethoxazole R F Aztreonam R F Cefotaxime I F Meropenem S F Tetracycline S F Ticarcillin/Clavulanic Acid R F ORGANISM 1 Pantoea spp ANTIBIOTIC M.I.C RX STATUS Amikacin S F Ampicillin/Sulbactam S F Ceftazidime S F Ceftriaxone S F Ciprofloxacin S F Gentamicin S F Imipenem S F Levofloxacin S F Piperacillin/Tazobactam I F Tobramycin S F Trimethoprim/Sulfamethoxazole S F Aztreonam R F Cefotaxime S F Meropenem S F Tetracycline S F Ticarcillin/Clavulanic Acid S FNormalGrand Lake Joint Township District Memorial HospitalComment on above: Performed By: #### SSCRN, THRTCX #### [facility] [address] [place] [address] Giig RobbinsenINFLUENZA A AND B AGon [id number] City HospitalComment on above:Result Comment: Negative for Flu A protein angiten. Infection due to Flu A cannot be ruled out. FluA angiten in the sample may be below the detection limit of the test.Performed By: #### INFLUAB #### [facility] [address] [place] [address] Gigi RobbinsenINFLUBNEGHSEE [facility] Medical CenterComment on above: Result Comment: Negative for Flu B protein antigen. Infection due to Flu B cannot be ruled out. FluB antigen in the sample may be below the detection limit of the test.Performed By: #### INFLUAB #### [facility] [address] [place] [address] Gigi RobbinsenINFLUENZA A AGNegativeNormalNEGATIVE SEE COMMENTThe [facility] City HospitalComment on above:Performed By: #### INFLUAB #### [facility] [address] [place] [address] Gigi RobbinsenINFLUENZA B AGNegativeNormalNEGATIVE SEE COMMENTThe [facility] City HospitalComment on above:Performed By: #### INFLUAB #### [facility] [address] [place] [address] Gigi KarenINTERNAL CONTROLSWithin Normal LimitsNormalWithin Normal LimitsThe [facility]oria City HospitalComment on above:Performed By: #### INFLUAB #### [facility] [address] [place] [address] Gigi KarenSTREPT SCREENon [id number] SCREEN ANegativeNormalNEGATIVEThe [facility]oria City HospitalComment on above:Performed By: #### SSCRN, THRTCX #### [facility] [address] [place] [address] Gigi KarenAcetaminophenon [id number] mass conc<8Zcf92-68HujuxThe Memorial HospitalAlcoholon 18-62-4976Wkxsa Alcohol ConcentrationNot indicatedNoSt. Vincent General Hospital DistrictEthanolmg/dLNoSt. Vincent General Hospital DistrictCBC With Platelet and Differentialon 58-35-8001Wucrmtervqib presence2+NormalThe Memorial HospitalMicrocytic2+NormalThe Memorial HospitalPoikilocytosis1+NormalThe Memorial HospitalBasophils Auto #/vol (Bld)0.0 10*3/uLNormal0.0-0.2MercEncompass Health Lakeshore Rehabilitation HospitalBasophils/100 WBC Auto (Bld)0.4 %[facility]'s Medical CenterEosinophils0.1 10*3/uL Normal0.0-0.7The Memorial HospitalEosinophils/100 leukocytes0.7 %Normal The Memorial HospitalErythrocyte distribution width Auto Ratio (RBC)18.8 %Critically high11.5-14.5The Memorial HospitalErythrocytes (RBC)4.99 10*6/uLNormal4.20-5.40The Memorial HospitalHematocrit (HCT)37.1 %Normal 37.0-47.0The Memorial HospitalHemoglobin mass conc (Bld)11.5 g/dLLow 12.0-16.0The Memorial HospitalLymphocytes2.0 10*3/uLNormal1.0-4.8The Memorial HospitalLymphocytes/[address] %[address] [facility]'s Medical CenterMCH23.0 pgLow27.0-31.3MGood Samaritan Medical CenterMCHC mass conc (RBC)30.9 %Low33.0-37.0The Memorial HospitalMCV74.4 fLLow82.0-100.0The Memorial HospitalMonocytes1.0 10*3/uLCritically high0.2-0.8The Memorial HospitalMonocytes/[address] leukocytes8.4 %[facility] Neutrophils8.7 10*3/uLCritically high1.4-6.5The [facility] Neutrophils/[address]7 %[address] [facility]'s Medical CenterPlatelets232 10*3/zJCfmatx909-407LxcyjThe Memorial HospitalWBC (Leukocytes)11.8 10*3/uL Critically high4.5-11.0The Memorial HospitalCKMB with Indexon 08-24-2017 CKMBng/mLNormal0.0-3.8The Memorial HospitalCKMB1.5 %Normal0.0-3.5The Memorial HospitalCreatine kinase (CK)65 U/LNormal0-170The Memorial HospitalComprehensive Metabolic Panelon 12-15-1474Pmetdjg aminotransferase (ALT)14 U/LNormal0-33The Memorial HospitalAlbumin3.8 g/dLLow3.9-4.9 The Memorial HospitalAlkaline phosphatase (ALP)87 U/AThckrx04-322ZyypgThe Memorial HospitalAnion gap10 mmol/LNormal7-13[facility] Aspartate aminotransferase (AST)15 U/LNormal0-35[facility] Bilirubin (total)mg/dLNormal0.0-1.2MGood Samaritan Medical CenterCalcium9.3 mg/dL Normal8.6-10.2MGood Samaritan Medical CenterChloride105 mmol/GMafatm27-795ImliyThe Memorial HospitalCO226 mmol/UCjndhd28-36XvqidThe Memorial Hospital Creatinine0.55 mg/dLNormal0.50-0.90The Memorial HospitaleGFR (black) mL/min/{1.73_m2}Normal>60The Memorial HospitalComment on above:Result Comment: >60 mL/min/1.73m2 EGFR, calc. for ages 18 and older using theMDRD formula (not corrected for weight), is valid for stablerenal function.eGFR (MDRD)mL/min/{1.73_m2}Normal>60The Memorial HospitalComment on above: Result Comment: >60 mL/min/1.73m2 EGFR, calc. for ages 18 and older using theMDRD formula (not corrected for weight), is valid for stablerenal function. Globulin3.8 g/dLCritically high2.3-3.5The Memorial HospitalGlucose mass ifog516 mg/dLCritically xmvc44-506CzmxgThe Memorial HospitalPotassium molar conc3.6 mmol/LNormal3.5-5.1MGood Samaritan Medical CenterProtein7.6 g/dLNormal 6.4-8.1MLongs Peak Hospitalodium141 mmol/TFyxxti159-719FafvoThe Memorial HospitalUrea nitrogen6 mg/dLNormal6-20The [facility] Culture, Urineon [id number], UrineORDER#: [id number] ORDERED BY: NAYANA MOSQUERA: Urine Clean Catch COLLECTED: 08/24/17 17:15ANTIBIOTICS AT ZIGGY.: RECEIVED : 08/24/17 17:42Culture, Urine FINAL 08/26/17 09:21 No growth 24 hours NormalBanner Fort Collins Medical Centeralicylateon [id number]<0.3Low 15.0-30.0The Memorial HospitalComment on above:Result Comment: Anti- pyretic: 3.0-10.0 mg/dLAnti-inflammatory: 15.0-30.0 mg/dLToxic: >30.0 mg/dLTSH w/out Reflexon [id number] stimulating hormone (TSH)2.360 uIU/mLNormal 0.270-4.20[facility] Drugs of Abuse Panelon 05-52-7730Odmt Screen Commentsee belowSt. Mary's Medical CenterComment on above: Result Comment: This method is a screening test to detect only these drugclasses as part of a medical workup. Confirmatory testingby another method should be ordered if clinically indicated.UR Amphetamines ScreenNegativeNormalNegative < [facility] Barbiturates ScreenNegativeNormalNegative <[facility] Benzo ScreenNegativeNormalNegative <[facility] Cannabinoids ScreenNegativeNormalNegative <[facility] Cocaine ScreenNegativeNormalNegative <[facility] Opiates ScreenNegativeNormalNegative <[facility]UR PCP ScreenNegativeNormalNegative <[facility] HCG Qualitativeon 14-30-2251BUV.beta subunit ( test) Ql (U)NegativeNormal Detects [facility] GranbyUrinalysis, reflex to cultureon 27-02-0486Evgelkaoy Ql (U)NegativeNormalNegKindred Hospital - [facility] Urine Reflexed to [facility]YEGrand [facility] HealthUrine, clarity CLOUDYAbnormalCleLutheran Medical CenterUrine, colorYellowNormal Straw/YellThe Memorial HospitalUrine, glucose presenceNegativeNormal NegativeThe Memorial HospitalUrine, hemoglobin presenceLARGEAbnormal NegativeThe Memorial HospitalUrine, ketones presenceNegativeNormal NegativeThe Memorial HospitalUrine, leukocyte esterase presenceSMALL AbnormalNegKindred Hospital - DenverUrine, nitrite presenceNegative NormalNegKindred Hospital - DenverUrine, pH6.5 [pH]Normal5.0-9.0[facility] HospitalUrine, protein presenceNegativeNormalNegKindred Hospital - DenverUrine, specific gravity1.581Cajkdq7.005-1.03[facility] HospitalUrine, urobilinogen1.0 {Bala'U}/dLNormal< 2.0The [facility] HospitalUrine Microscopicon 33-01-8533Efrgo Renal Epithelial3-5 NormalThe Memorial HospitalUrine, bacteria in sedimentFewNoSt. Vincent General Hospital DistrictUrine, epithelial cells presence in sediment5-10Normal The [facility] HospitalUrine, nkthnvoyimyi3-82Sqrmiojk2-0Wtckn Regional Medical CenterUrine, ltluozkiuh6-73Thpbjibx0-9Jwfvu [facility] Laboratory Studieson 18-06-8801Vzpfnrucvj (U)ClearCincinnati [facility] Ctr Bacteria LM.HPF (Urine sed) [#/Area]None seenCincinnati Va Medical Center CtrBeta HCG ( test) Ql (U)NegativeCincinnati Va Medical Center CtrBilirubin Ql (U)NegativeCincinnati Va Medical Center CtrColor (U)YellowCincinnati Va Medical Center CtrEpithelial cells.squamous LM.HPF (Urine sed) [#/Area]5-9 /HPFLakehealth Beachwood [facility] CtrGlucose (U) [Mass/Vol]Normal mg/dLCincinnati Va Medical Center CtrHyaline casts LM Ql (Urine sed)None seen /LPRegency Hospital Cleveland East CtrKetones Ql (U)NegativeCincinnati Va [facility] Ctr Leukocyte esterase Test strip Ql (U)3+HighCincinnati Va Medical Center CtrNitrite Ql (U)NegativeCincinnati Va [facility] CtrpH (U)7.0 [pH]5.0-9.0[facility] CtrProtein Ql (U)NegativeCincinnati [facility] CtrRBC (U) [#/Vol]1-2 /[facility] CtrSpecific gravity (U) [Rel density] 1.0111.001-1.030[facility] CtrUrine Occult BloodNegative [facility] CtrUrobilinogen Qn (U)Normal mg/dLCincinnati Va Medical Center CtrWBC (U) [#/Vol]3-4 /[facility] CtrLaboratory Studieson 62-57-4696Tvafoae [Mass/Vol]3.8 g/dL3.2-5.5FPremier Health [facility] CtrAlbumin/Globulin [Mass ratio]1.0 {ratio}[facility] CtrALP [Catalytic activity/Vol]72 U/M57-23BuruxfocfCincinnati Va Medical Center CtrALT [Catalytic activity/Vol]19 U/Y66-03UbqgyguatCincinnati Va Medical Center CtrAST [Catalytic activity/Vol]16 U/Q18-98CchehkihgCincinnati Va Medical Center CtrBilirubin Ql (U)0.7 mg/dL 0.3-1.2FPremier Health Miami [facility] CtrBilirubin.direct [Mass/Vol]mg/dL0.0-0.4 [facility] CtrBilirubin.indirect (Body fld) [Mass/Vol]TNP [facility] CtrComment on above:Test not performed WHEN BILD IS <0.1,IBIL IS NOT ABLE TO BE CALCULATED.Cholesterol [Mass/Vol]183 mg/aE791-691SktqvjoysCincinnati Va Medical Center CtrComment on above:CHOL less than 200 mg/dL Low risk CHOL 201-239 mg/dL Borderline risk CHOL 240 mg/dL and greater High risk Cholesterol [Mass/Vol]22 mg/dLCincinnati Va Medical Center CtrCholesterol in HDL [Mass/Vol]39 mg/yC03-18BvkmxjztiCincinnati Va Medical Center CtrComment on above:HDL CHOL ATP-III CLASSIFICATION Cardiovascular Risk HDL > or equal to 60 mg/dL Low HDL < 40 mg/dL High Cholesterol.total/Cholesterol in HDL [Mass ratio]4.7 {ratio}[facility] CtrGlobulin (S) [Mass/Vol]4.0 g/dLCincinnati Va Medical Center CtrLDL Cholesterol, Iwroxnnswd133 mg/dLHigh0-100[facility] CtrComment on above:LDL ATP III CLASSIFICATION LDL less than 100 mg/dL Optimal LDL 100-129 mg/dL Near or above optimal LDL 130-159 mg/dL Borderline high LDL 160-189 mg/dL High LDL greater than 189 mg/dL Very high Protein [Mass/Vol]7.8 g/dL6.1-7.9[facility] CtrTriglyceride [Mass/Vol]111 mg/bH10-127QpcrjdhryCincinnati Va Medical Center CtrComment on above:TRIG ATP III CLASSIFICATION TRIG less than 150 mg/dL Normal TRIG 150-199 mg/dL Borderline high TRIG 200-500 mg/dL High TRIG greater than 500 mg/dL Very high Standard traceable to the Center for Disease Conrtrol and Prevention (CDC) test method. TSH Qn4.93 uIU/mL0.45-5.33[facility] CtrComment on above:Revised TSH Assay 08/08/16 This assay is standardized to the World Health Organization International Standard for human TSH. Please note Reference Intervals have changed.Amphetamines Ql (U)Negative [facility] CtrAppearance (U)Sl cloudyAbnormalCincinnati Va Medical Center CtrBacteria LM.HPF (Urine sed) [#/Area]1+[facility] CtrBenzodiazepines Ql (U)[facility] CtrBeta HCG ( test) Ql (U)NegativeCincinnati Va Medical Center CtrBilirubin Ql (U) NegativeCincinnati [facility] CtrCocaine Ql (U)[facility] CtrColor (U)YellowCinc[facility] Va Medical [facility] CtrEpithelial cells.squamous LM.HPF (Urine sed) [#/Area]10-19 /hpfHocking Valley Community Hospital CtrGlucose (U) [Mass/Vol]Normal mg/dLCincinnati Va Medical Center Ctr Ketones Ql (U)NegativeC[facility]innati [facility] CtrLeukocyte esterase Test strip Ql (U)NegativeCincinnati [facility] CtrMucus Ql (Urine sed)1+ [facility] CtrNitrite Ql (U)[facility] CtrOpiates Ql (U)[facility] CtrpH (U)6.0 [pH]5.0-9.0 [facility] CtrPhencyclidine Ql (U)NegativeC[facility] CtrProtein Ql (U)30 mg/dLHighCincinnati Va Medical Center CtrRBC (U) [#/Vol]None seen /hpfCincinnati Va Medical Center CtrSpecific gravity (U) [Rel density]1.0281.001-1.030[facility] CtrComment on above:RECHECKED BY REFRACTOMETERUrine Barbiturates ScreenNegativeFirelands Regional Medical Center Urine Collection TypeTypeCincinnati Va [facility] CtrComment on above:VOIDED Urine Drug Screen CommentSee commentCincinnati Va Medical Center CtrComment on above:THESE ARE UNCONFIRMED RESULTS AND SHOULD NOT BE USED FOR LEGAL PURPOSES. DRUG CUT-OFF CONCENTRATION: AMPH 1000 ng/mL CHRISSY 200 ng/mL RUKHSANA 200 ng/mL COCM 300 ng/mL OP 300 ng/mL PCP 25 ng/mL THC 20 ng/mLUrine Marijuana (THC) ScreenNegativeCincinnati Va Medical Center Ctr Urine Occult BloodNegativeCincinnati Va Medical Center CtrUrobilinogen Qn (U) Normal mg/dLCincinnati Va Medical Center CtrWBC (U) [#/Vol]5-9 /hpfHighCincinnati Va Medical Center CtrAnisocytosis Ql (Bld)SlightCincinnati Va Medical Center Ctr Basophils (Bld) [#/Vol]0.1 10*3/uL0.0-0.2FPremier Health Miami [facility] Ctr Basophils/100 WBC (Bld)0.8 %[facility] CtrBlood Smear Pathologist ReviewImpressionCincinnati Va Medical Center CtrComment on above: Review of the peripheral blood smear and CBC from 08/17/2016 in a 21-year-old female reveals an increased amount of red blood cells with microcytosis. Red blood cells show anisocytosis with polychromasia. Stomatocytes are also present. Neutrophils, mon Reviewed by Dr Ashely Cooper M.D. on 08/19/16.Calcium [Mass/Vol]9.5 mg/dL 8.2-10.2FPremier Health Miami [facility] CtrChloride [Moles/Vol]106 mmol/L95-114 [facility] CtrCO2 [Moles/Vol]26.2 mmol/L22.0-30.0[facility] CtrCreatinine [Mass/Vol]0.70 mg/dL0.44-1.03[facility] CtrEosinophils (Bld) [#/Vol]0.20 10*3/uL0.0-0.45[facility] CtrEosinophils/100 WBC (Bld)1.9 %[facility]tr Erythrocyte distribution width (RBC) [Ratio]15.9 %High11.9-15.3FPremier Health [facility] CtrEstimated GFR (Non-> 60[facility] CtrEthyl Alcohol Level< 5 mg/dLCincinnati Va Medical Center CtrGFR/1.73 sq M.predicted MDRD (S/P/Bld) [Vol rate/Area]mL/min/{1.73_m2}[facility] CtrComment on above:GFR estimated reference range: According to KDOQI guidelines, <60 ml/min/1.73m2 is sufficient todiagnose a patient with chronic kidney disease.Glucose [Mass/Vol]114 mg/pZLyek36-141SjymtczbrCincinnati Va Medical Center CtrComment on above:ADA RECOMMENDED REFERENCE RANGEHematocrit (Bld) [Volume fraction]38.7 %34.0-46.4FPremier Health Miami [facility] CtrHemoglobin (Bld) [Mass/Vol]12.6 g/dL11.8-15.4FPremier Health [facility] CtrLymphocytes (Bld) [#/Vol]3.0 10*3/uL1.00-4.8[facility] CtrLymphocytes/100 WBC (Bld)32.5 %[facility] CenterMCH (RBC) [Entitic mass]24.3 pgLow 24.7-34.3FCherrington HospitalMCHC (RBC) [Mass/Vol]32.6 g/dL32.0-35.0 [facility] CenterMCV (RBC) [Entitic vol]74.4 cAMzy59-769ZuwpaakanCincinnati Va Medical Center CtrMicrocytosisModerateCincinnati [facility] CtrMonocytes (Bld) [#/Vol]0.7 10*3/uL0.0-0.8[facility] CtrMonocytes/100 WBC (Bld)7.7 %[facility] CtrNeutrophils (Bld) [#/Vol]5.3 10*3/uL 1.8-7.7FPremier Health [facility] CtrNeutrophils/100 WBC (Bld)57.1 %[facility] CtrPercent Ethyl Alcohol< 0.005 %[facility]tr Platelet mean volume (Bld) [Entitic vol]9.3 fL6.3-10.7FPremier Health [facility] CtrPlatelet Morphology CommentNormalCincinnati [facility] CtrPlatelets (Bld) [#/Vol]NormalC[facility] CtrPlatelets (Bld) [#/Vol]309 10*3/aN625-502NnnbyzgwrCincinnati Va Medical Center CtrPolychromasiaSlightCincinnati Va [facility] Center CtrPotassium [Moles/Vol]3.9 mmol/L3.5-5.1FPremier Health [facility] CtrRBC (Bld) [#/Vol]5.21 10*6/uLHigh3.60-5.00[facility] CtrSodium [Moles/Vol]140 mmol/U926-382WrjgmzzucCincinnati Va Medical Center CtrStomatocytes SlightCincinnati [facility] CtrUrea nitrogen [Mass/Vol]9 mg/dL9-23[facility] CtrWBC (Bld) [#/Vol]9.2 10*3/uL3.8-11.6FPremier Health [facility] Ctr Vital Signs Date TimeVital SignValuePerforming MnjzxlmmcWcwarvvp01-96-0941 09:14-0400Blood Pressure [facility] 09-02-2023 09:14-0400Body ubmcvkeqvnr56.6 [degF][facility] Fuhs92-20-6571 09:14-0400Diastolic blood repnkumf53 mm[Hg][facility] Yesa38-36-5216 09:14-0400Heart rate73 /minMer[facility] Health [facility] Dbpz86-44-3109 09:14-0400Respiratory rate20 /minMictempe st[address] [facility] Pusc19-45-8006 09:14-5033OaY4% (BldA) [Mass fraction]98 %[facility] 09-02-2023 09:14-0400Systolic blood mm[Hg][facility] Omvz33-55-1860 13:23-0400Body rxcglu304.64 cm Juanita Galvandorf PA-C Work Phone: [facility] Work Phone: [phone] 613-235004-29-2024 13:23-0400Body mass index (BMI) [Ratio]45.2 kg/y9Xtvmzesaranya Galvandorf PA-C Work Phone: [facility] Work Phone: 1([phone]) 547-804204-29-2024 13:23-0400Body surface area Derived from formula2.3 n0Qreddfmakayla Galvandorf PA-C Work Phone: [facility] Work Phone: 1([phone] 413-822404-29-2024 13:23-0400Body neszbjqdbtm65 [degF]Juanita Galvandorf PA-C Work Phone: [facility] Work Phone: 1([phone] 370-272004-29-2024 13:23-0400Body .01 kgSydnmakayla Galvandorf PA-C Work Phone: [facility] Work Phone: 1(328) 702-120704-29-2024 13:23-0400Diastolic blood ovwhmvyw73 mm[Hg] Juanita Galvandorf PA-C Work Phone: [facility] Work Phone: 1(517) [phone] 13:23-0400Heart rate91 /minSydopal Hattendorf PA-C Work Phone: [facility] Work Phone: [phone] 275-513904-29-2024 13:23-0400Heart Rate Rhythm1 1Sydopal Hattendorf PA-C Work Phone: [facility] Work Phone: [phone] 13:23-0400Inhaled oxygen pzrirglnlksrw60 % Juanita Sequeiratendorf PA-C Work Phone: [facility] Work Phone: 1(154) 303-112304-29-2024 13:23-0400Inhaled oxygen flow rate0 L/min Juanita Lewis PA-C Work Phone: [facility] Work Phone: 1([phone] 328-151604-29-2024 13:23-5667XkE8% (BldA) [Mass fraction]98 % Juanita Lewis PA-C Work Phone: [facility] Work Phone: 1(517) [phone] 13:23-0400Systolic blood vbvcepmn851 mm[Hg] Juanita Lewis PA-C Work Phone: [facility] Work Phone: 1(685) 145-500803-13-2024 19:44-0400Body anguxg558.1 cmKiolga Blandon [employer] Work Phone: [place]1203-13-2024 19:44-0400Body mass index (BMI) [Ratio]47.26 kg/u3NcehsikkKirsten Blandon [employer] Work Phone: [place]1203-13-2024 19:44-0400Body pkkqibigztu71.4 [degF]Kirsten Hamler [employer] Work Phone: [place]1203-13-2024 19:44-0400Body mxckio592.82 kgKiolga Jamia [employer] Work Phone: [place]1203-13-2024 19:44-0400Diastolic blood qysxnwpk08 mm[Hg]Kirsten Blandon [employer] Work Phone: [place]1203-13-2024 19:44-0400Heart rate 92 /minKiolga Hamler [employer] Work Phone: [place]1203-13-2024 19:44-0400 Respiratory rate14 /minKimberly Jamia [employer] Work Phone: [facility] HospitalBIBA Apparels03-13-2024 19:44-1571DlS0% (BldA) [Mass fraction]100 %Kirsten Blandon [employer] Work Phone: [place]1203-13-2024 19:44-0400Systolic blood cycdkafq125 mm[Hg]Kirsten Blandon [employer] Work Phone: [facility] HospitalBIBA Apparels03-06-2024 10:53-0500Body hzohve764.64 Grey Galvandorf PA-C Work Phone: [facility] Work Phone: 1([phone] 871-496703-06-2024 10:53-0500Body mass index (BMI) [Ratio]45.3 kg/k6HrqmjzJuanita Galvandorf PA-C Work Phone: [facility] Work Phone: 1(174) 516-826003-06-2024 10:53-0500Body surface area Derived from formula2.3 u5Aplkcnsaranya Galvandorf PA-C Work Phone: [facility] Work Phone: 1([phone] 847-935003-06-2024 10:53-0500Body .5 [degF]Juanita Galvandorf PA-C Work Phone: [facility] Work Phone: 1(430) 334-265703-06-2024 10:53-0500Body dnlndo838.19 kgSysaranya Galvandorf PA-C Work Phone: [facility] Work Phone: 1([phone] 396-416803-06-2024 10:53-0500Diastolic blood fqqsnhou93 mm[Hg] Juanita Galvandorf PA-C Work Phone: [facility] Work Phone: 1(850) 667-768803-06-2024 10:53-0500Heart Rate Rhythm1 1Syen Lewis PA-C Work Phone: [facility] Work Phone: 1(567) 526-835803-06-2024 10:53-0500Inhaled oxygen wgwsghbwldihj66 % Juanita Lewis PA-C Work Phone: [facility] Work Phone: [phone] 170-543703-06-2024 10:53-0500Inhaled oxygen flow rate0 L/min Juanita Lewis PA-C Work Phone: [facility] Work Phone: 1([phone] 497-741403-06-2024 10:53-0500Systolic blood cmzfmpwo511 mm[Hg] Juanita Lewis PA-C Work Phone: [facility] Work Phone: 1(610) 802-804802-21-2024 09:08-0500Body .64 cmSyen Lewis PA-C Work Phone: [facility] Work Phone: 1([phone] 314-151602-21-2024 09:08-0500Body mass index (BMI) [Ratio]46 kg/u7Powdqpsaranya Lewis PA-C Work Phone: [facility] Work Phone: 1(790) 698-344902-21-2024 09:08-0500Body surface area Derived from formula2.3 x2Rdpmxvsaranya Galvandorf PA-C Work Phone: [facility] Work Phone: 1([phone] 502-176202-21-2024 09:08-0500Body kdrwymbvdie91.1 [degF]Juanita Lewis PA-C Work Phone: [facility] Work Phone: 1([phone] 09:08-0500Body hedncp833.37 kgSymarymakayla Galvandorf PA-C Work Phone: [facility] Work Phone: [phone] 111-870102-21-2024 09:08-0500Diastolic blood goufzeuz50 mm[Hg] Juanita Galvandorf PA-C Work Phone: [facility] Work Phone: [phone] 408-562902-21-2024 09:08-0500Heart rate93 /Robert Galvanrf PA-C Work Phone: [facility] Work Phone: 1([phone] 358-256402-21-2024 09:08-6805LwV0% (BldA) [Mass fraction]98 % Juanita Galvandorf PA-C Work Phone: [facility] Work Phone: 1([phone] 411-637802-21-2024 09:08-0500Systolic blood ictxtgns559 mm[Hg] Juanita Guanrf PA-C Work Phone: [facility] Work Phone: 1([phone] 380-254301-10-2024 12:46-0500Body mass index (BMI) [Ratio]46 kg/t2Ytpywaz Smola [employer] Work Phone: [facility] HospitalBIBA Apparels01-10-2024 12:46-0500Body tddhitwuxrm37.49 [degF]Rosalie Cox [employer] Work Phone: [place]1201-10-2024 12:46-0500Body .28 kgMicduane Cox [employer] Work Phone: [facility] HospitalCounterStorm Amijfm15-42-9191 12:46-0500Diastolic blood qcghypnv67 mm[Hg]Rosalie Cox [employer] Work Phone: [facility] HospitalCounterStorm Sljvbl45-42-6816 12:46-0500Heart rate 75 /minMicduane Cox APRN-POT SANDER Work Phone: [facility] Issue Qxlkqq86-19-8062 12:46-0500 Respiratory rate18 /minMicduane Cox [employer] Work Phone: [facility] Issue Mbwctc75-83-7625 12:46-7214EsY0% (BldA) [Mass fraction]100 %Rosalie Cox APRN[employer] Work Phone: [facility] Issue Xnmgzm71-51-2655 12:46-0500Systolic blood dahlqjki254 mm[Hg]Rosalie Cox APRN[employer] Work Phone: [facility] Issue Ddrhco84-03-2072 09:30-0500Body pxftuv999.64 cmTjulio cesar Culp [employer] Work Phone: [facility] Work Phone: [phone] 207-250712-08-2023 09:30-0500Body mass index (BMI) [Ratio]46.3 kg/s5VpovspCarrol Culp CareParentS Work Phone: [facility] Work Phone: 1(516) 218-896912-08-2023 09:30-0500Body surface area Derived from formula2.3 p6AgmffkCarrol Culp CareParentS Work Phone: [facility] Work Phone: [phone] 559-872012-08-2023 09:30-0500Body .1 [degF]Carrol Culp [employer] Work Phone: [facility] Work Phone: 1([phone]) [phone] 09:30-0500Body frzyae673.18 kgMohansandi Culp DDS Work Phone: [facility] Work Phone: 1([phone] 215-282412-08-2023 09:30-0500Diastolic blood mm[Hg] Carrol Culp DDS Work Phone: [facility] Work Phone: 1([phone] 608-395812-08-2023 09:30-0500Heart rate84 /minCarrol Culp DDS Work Phone: [facility] Work Phone: [phone] 146-710112-08-2023 09:30-0500Heart Rate Rhythm1 1Carrol Culp DDS Work Phone: [facility] Work Phone: [phone] 09:30-0500Inhaled oxygen twujygrswqrtn49 % Carrol Culp DDS Work Phone: [facility] Work Phone: 1([phone] 342-398212-08-2023 09:30-0500Inhaled oxygen flow rate0 L/min Carrol Culp DDS Work Phone: [facility] Work Phone: 1([phone] 950-638512-08-2023 09:30-6939FuT6% (BldA) [Mass fraction]99 % Carrol Culp [employer] Work Phone: [facility] Work Phone: [phone] 777-293412-08-2023 09:30-0500Systolic blood kuklhuxz265 mm[Hg] Carrol Culp DDS Work Phone: [facility] Work Phone: [phone] 600-181210-13-2023 09:06-0400Body rwweys489.64 cmTjulio cesar [employer] Work Phone: [facility] Work Phone: 1([phone] 459-543910-13-2023 09:06-0400Body mass index (BMI) [Ratio]46 kg/d9SyfjqkCarrol Culp DDS Work Phone: [facility] Work Phone: 1([phone] 526-105510-13-2023 09:06-0400Body surface area Derived from formula2.3 r7EpcsilCarrol Culp DDS Work Phone: [facility] Work Phone: 1([phone] 09:06-0400Body xivjyudcvze61.4 [degF]Carrol Culp DDS Work Phone: [facility] Work Phone: 1([phone] 287-130610-13-2023 09:06-0400Body .37 kgCarrol Culp DDS Work Phone: [facility] Work Phone: 1([phone] 09:06-0400Diastolic blood lxqpbdxe92 mm[Hg] Carrol Culp DDS Work Phone: [facility] Work Phone: 1([phone] 204-887510-13-2023 09:06-0400Heart rate77 /minCarrol Culp DDS Work Phone: [facility] Work Phone: 1(613) 117-606810-13-2023 09:06-8400BkP7% (BldA) [Mass fraction]99 % Carrol Culp DDS Work Phone: [facility] Work Phone: 1(120) 211-523910-13-2023 09:06-0400Systolic blood bcyrjzry521 mm[Hg] Carrol Culp DDS Work Phone: [facility] Work Phone: 1([phone] 496-522009-19-2023 09:55-0400Body .64 Grey Lewis PA-C Work Phone: [facility] Work Phone: 1([phone] 560-809809-19-2023 09:55-0400Body mass index (BMI) [Ratio]46.5 kg/o1Afikpu Hattendorf PA-C Work Phone: [facility] Work Phone: [phone] 257-202009-19-2023 09:55-0400Body surface area Derived from formula2.3 q4Yrygso Hattendorf PA-C Work Phone: [facility] Work Phone: 1([phone] 140-955609-19-2023 09:55-0400Body ofqwuxmipnv18.9 [degF]Juanita Hattendorf PA-C Work Phone: [facility] Work Phone: 1([phone] 09:55-0400Body avllew368.55 kgSydnmakayla Hattendorf PA-C Work Phone: [facility] Work Phone: 1([phone] 09:55-0400Diastolic blood alfmwwhq79 mm[Hg] Juanita Hattendorf PA-C Work Phone: [facility] Work Phone: 1([phone] 404-148009-19-2023 09:55-0400Heart rate85 /Robert Hattendorf PA-C Work Phone: [facility] Work Phone: 1([phone] 182-760809-19-2023 09:55-0470ZdG0% (BldA) [Mass fraction]95 % Juanita Hattendorf PA-C Work Phone: [facility] Work Phone: [phone] 09:55-0400Systolic blood salzpgrn728 mm[Hg] Juanita Hattendorf PA-C Work Phone: [facility] Work Phone: 1([phone] 540-627909-13-2023 23:07-0400Body .6 cmKevin Wickenheiser MD Work Phone: [facility] [employer]09-13-2023 23:07-0400Body mass index (BMI) [Ratio]47.45 kg/k8TchtyGeorgiana Larsen MD Work Phone: [facility] [id number] 23:07-0400Body qmbpgggdmko84.2 [degF]Georgiana Larsen MD Work Phone: [facility] MED[facility] CENTERPrizeBox™ [facility] [id number] 23:07-0400Body hlboul240.36 kgGeorgiana Larsen MD Work Phone: [facility] [id number] 23:07-0400Diastolic blood esnaujtk10 mm[Hg]Georgiana Larsen MD Work Phone: [facility] [id number] 23:07-0400Heart rate76 /minGeorgiana Larsen MD Work Phone: [facility] [id number] 23:07-0400 Respiratory rate16 /minGeorgiana Larsen MD Work Phone: [facility] [facility] [id number] 23:07-1060QmE6% (BldA) [Mass fraction]100 %Georgiana Larsen MD Work Phone: [facility]™ [facility] [id number] 23:07-0400Systolic blood xtqufrcm401 mm[Hg]Georgiana Larsen MD Work Phone: [facility] [id number] 08:56-0400Body yimtpd044.64 cmSyen Lewis PA-C Work Phone: [facility] Work Phone: 1(338) 488-203708-31-2023 08:56-0400Body mass index (BMI) [Ratio]47.2 kg/z3Dzyywg Hattendorf PA-C Work Phone: [facility] Work Phone: 1(959) [phone] 08:56-0400Body surface area Derived from formula2.4 p5Lwxycu Hattendorf PA-C Work Phone: [facility] Work Phone: 1(698) [phone] 08:56-0400Body xqraybxfcga10.3 [degF]Juanita Sequeiratendorf PA-C Work Phone: [facility] Work Phone: 1(781) 453-778808-31-2023 08:56-0400Body wqakbo708.63 kgSysaranya Sequeiratendorf PA-C Work Phone: [facility] Work Phone: 1(317) 320-821508-31-2023 08:56-0400Diastolic blood jknnievw35 mm[Hg] Juanita Galvandorf PA-C Work Phone: [facility] Work Phone: 1(445) [phone] 08:56-0400Heart rate88 /minSydopal Hattendorf PA-C Work Phone: [facility] Work Phone: 1(544) [phone] 08:56-0400Heart Rate Rhythm1 1Sydopal Hattendorf PA-C Work Phone: [facility] Work Phone: 1(147) 647-906608-31-2023 08:56-0400Inhaled oxygen % Juanita Sequeiratendorf PA-C Work Phone: [facility] Work Phone: 1(451) 260-955908-31-2023 08:56-0400Inhaled oxygen flow rate0 L/min Juanita Hattendorf PA-C Work Phone: [facility] Work Phone: 1(649) [phone] 08:56-0400Respiratory rate22 /minSyen Lewis PA-C Work Phone: [facility] Work Phone: 1(797) [phone] 08:56-3265ZwP3% (BldA) [Mass fraction]98 % Juanita Lewis PA-C Work Phone: [facility] Work Phone: 1(239) 515-390308-31-2023 08:56-0400Systolic blood bfyfribe036 mm[Hg] Juanita Lewis PA-C Work Phone: [facility] Work Phone: 1(800) [phone] 10:03-0400Body mitifu353.64 cmSydopal Galvandorf PA-C Work Phone: [facility] Work Phone: 1(416) [phone] 10:03-0400Body mass index (BMI) [Ratio]47.5 kg/s7Vcqdtasaranya Lewis PA-C Work Phone: [facility] Work Phone: 1(610) 223-871908-23-2023 10:03-0400Body surface area Derived from formula2.4 w4Xqaggnsaranya Lewis PA-C Work Phone: [facility] Work Phone: 1(891) 751-320408-23-2023 10:03-0400Body wfzzwfbqror82.4 [degF]Juanita Lewis PA-C Work Phone: [facility] Work Phone: 1(866) 550-619008-23-2023 10:03-0400Body hpxsxu580.36 kgSysaranya Galvandorf PA-C Work Phone: [facility] Work Phone: 1(985) 251-784508-23-2023 10:03-0400Diastolic blood qamgptvu51 mm[Hg] Juanita Galvandorf PA-C Work Phone: [facility] Work Phone: 1(457) [phone] 10:03-0400Heart rate81 /minSyen Hattendorf PA-C Work Phone: [facility] Work Phone: 1(118) 445-234708-23-2023 10:03-7962IzH9% (BldA) [Mass fraction]98 % Juanita Hattendorf PA-C Work Phone: [facility] Work Phone: 1(527) [phone] 10:03-0400Systolic blood cpixmewe442 mm[Hg] Juanita Sequeiratendorf PA-C Work Phone: [facility] Work Phone: 1(398) [phone] 09:57-0400Body jrumdx896.64 cmSyen Hattendorf PA-C Work Phone: [facility] Work Phone: 1(782) 507-992708-02-2023 09:57-0400Body mass index (BMI) [Ratio]47.5 kg/n2Hposwo Hattendorf PA-C Work Phone: [facility] Work Phone: 1(601) 975-753008-02-2023 09:57-0400Body surface area Derived from formula2.4 l4Ecaesm Hattendorf PA-C Work Phone: [facility] Work Phone: 1(204) 743-176408-02-2023 09:57-0400Body xtdcftttxhy72.6 [degF]Juanita Hattendorf PA-C Work Phone: [facility] Work Phone: 1(783) 427-390708-02-2023 09:57-0400Body uqqkoh456.36 kgSysaranya Galvandorf PA-C Work Phone: [facility] Work Phone: 1(601) 855-765008-02-2023 09:57-0400Diastolic blood pvmubgtz41 mm[Hg] Juanita Galvandorf PA-C Work Phone: [facility] Work Phone: 1(639) 505-654408-02-2023 09:57-0400Heart rate77 /minSyen Galvandorf PA-C Work Phone: [facility] Work Phone: 1(369) 433-294308-02-2023 09:57-9507AjH7% (BldA) [Mass fraction]98 % Juanita Galvandorf PA-C Work Phone: [facility] Work Phone: 1(396) 413-765608-02-2023 09:57-0400Systolic blood vmlykqwa075 mm[Hg] Juanita GalvanPacketSledrf PA-C Work Phone: [facility] Work Phone: 1(162) 356-441804-10-2023 14:51-0400Body .64 cmSyen Hattendorf PA-C Work Phone: [facility] Work Phone: 1(376) [phone] 14:51-0400Body mass index (BMI) [Ratio]47.5 kg/i7Wxbkhmsaranya Galvandorf PA-C Work Phone: [facility] Work Phone: 1(578) 492-618204-10-2023 14:51-0400Body surface area Derived from formula2.4 j9Sdqvtg Hattendorf PA-C Work Phone: [facility] Work Phone: 1(106) 948-158404-10-2023 14:51-0400Body zuzyhaarqro21.4 [degF]Juanita Lewis PA-C Work Phone: [facility] Work Phone: 1(112) 469-677104-10-2023 14:51-0400Body zhhpec614.63 kgSysaranya Lewis PA-C Work Phone: [facility] Work Phone: 1(539) 870-747504-10-2023 14:51-0400Diastolic blood qlwnjjwi84 mm[Hg] Juanita Lewis PA-C Work Phone: [facility] Work Phone: 1(610) 163-745304-10-2023 14:51-0400Heart rate82 /Robert Lewis PA-C Work Phone: [facility] Work Phone: 1(867) 317-473004-10-2023 14:51-3774FzP8% (BldA) [Mass fraction]99 % Juanita Lewis [employer]-C Work Phone: [facility] Work Phone: 1(319) 265-345804-10-2023 14:51-0400Systolic blood lqnnochw385 mm[Hg] Juanita Lewis PA-C Work Phone: [facility] Work Phone: 1(927) 155-710503-31-2023 14:06-0400Body pzfset809.64 Davidatroy Pelaez CNP Work Phone: [facility] Work Phone: 1(634) 561-617703-31-2023 14:06-0400Body mass index (BMI) [Ratio]47.2 kg/m0Xbcqofkum Benigno OLIVERA Work Phone: [facility] Work Phone: 1(221) 237-554703-31-2023 14:06-0400Body surface area Derived from formula2.4 p4NfdaidvwxKb Pelaez POT SANDER Work Phone: [facility] Work Phone: 1(101) 229-564803-31-2023 14:06-0400Body iepbpoqnbep02.1 [degF] Kb Pelaez P[employer] SANDER Work Phone: [facility] Work Phone: 1(762) 301-688403-31-2023 14:06-0400Body mgnmyh641.63 kgKb Pelaez POT SANDER Work Phone: [facility] Work Phone: 1(992) 101-778603-31-2023 14:06-0400Diastolic blood mukipaza90 mm[Hg] Kb Pelaez POT SANDER Work Phone: [facility] Work Phone: 1(719) 128-964903-31-2023 14:06-0400Heart krtl796 /minKb Pelaez P[employer] SANDER Work Phone: [facility] Work Phone: 1(190) 438-748603-31-2023 14:06-5548YhY6% (BldA) [Mass fraction]99 % Kb Pelaez P[employer] SANDER Work Phone: [facility] Work Phone: 1(398) 105-867403-31-2023 14:06-0400Systolic blood txynzszc731 mm[Hg] Kb Pelaez P[employer] SANDER Work Phone: [facility] Work Phone: 1(878) 486-655203-13-2023 10:47-0400Body qrbsou356.64 cmChrshara Pelaez POT SANDER Work Phone: [facility] Work Phone: 1(775) 362-143603-13-2023 10:47-0400Body mass index (BMI) [Ratio]46.5 kg/y3Jfncfiozj Ray P[employer]ANDER Work Phone: [facility] Work Phone: 1(803) 150-741703-13-2023 10:47-0400Body surface area Derived from formula2.3 v1Vkgcuqtfb Ray P[employer] SANDER Work Phone: [facility] Work Phone: 1(741) [phone] 10:47-0400Body nvfvhnzuyuu11.9 [degF] Kb Pelaez CNP Work Phone: [facility] Work Phone: 1(429) 650-803403-13-2023 10:47-0400Body .73 kgKb Pelaez CNP Work Phone: [facility] Work Phone: 1(906) 293-269303-13-2023 10:47-0400Diastolic blood dwmtyskz80 mm[Hg] Kb Pelaez CNP Work Phone: [facility] Work Phone: 1(326) [phone] 10:47-0400Heart rate91 /minKb Pelaez CNP Work Phone: [facility] Work Phone: 1(603) 294-556103-13-2023 10:47-5192BvM2% (BldA) [Mass fraction]98 % Kb Pelaez CNP Work Phone: [facility] Work Phone: 1(393) 700-815103-13-2023 10:47-0400Systolic blood kfsewvkn377 mm[Hg] Kb Pelaez CNP Work Phone: [facility] Work Phone: 1(561) 900-990311-06-2022 23:44-0500Body isdmqq000.6 Dolores Roa MD Work Phone: [facility]11-06-2022 23:44-0500Body mass index (BMI) [Ratio]45.84 kg/l6BmckoblaAlexandra Roa MD Work Phone: [facility]11-06-2022 23:44-0500Body envytttsmak71 [degF]Alexandra Roa MD Work Phone: [facility]11-06-2022 23:44-0500Body sjewfm637.82 kgAlexandra Roa MD Work Phone: [facility]11-06-2022 23:44-0500Diastolic blood nmrbdaga52 mm[Hg]Alexandra Roa MD Work Phone: [facility]-06-2022 23:44-0500Heart rate80 /Chantelle Roa MD Work Phone: [facility]11-06-2022 23:44-0500 Respiratory rate19 /Chantelle Roa MD Work Phone: 1(562)842-[facility]-06-2022 23:44-4378HbT7% (BldA) [Mass fraction]99 %Alexandra Roa MD Work Phone: [facility]11-06-2022 23:44-0500Systolic blood eqluugel796 mm[Hg]Alexandra Roa MD Work Phone: [facility]10-30-2022 08:45-0400Body mass index (BMI) [Ratio]44.22 kg/m2Rodrigo [facility] 08:45-0400Body fqltdezkkkz81.8 [degF][facility] 12-16-2021 08:45-0400Body sbnedj982.29 kgRodrigo Lee [facility] 12-16-2021 08:45-0400Diastolic blood cvvbvgil20 mm[Hg]Rodrigo [facility]-30-2022 08:45-0400Heart wdvl148 /minRodrigo eLe [facility]-30-2022 08:45-0400Respiratory rate19 /minRodrigo Lee [facility]-30-2022 08:45-5290WkU4% (BldA) [Mass fraction]99 %Rodrigo [facility]-30-2022 08:45-0400Systolic blood papzddnd958 mm[Hg]Rodrigo [facility]05-03-2022 13:56-0400Body yjgmysgcqho78.7 [degF] Evita Short MD Work Phone: 1(165)[facility] [place], [place] 9706005-03-2022 13:56-0400Diastolic blood monrgoib51 mm[Hg]Evita Short MD Work Phone: 1(803)[address] [place], [place] 0448805-03-2022 13:56-0400Heart rate84 /min Evita Short MD Work Phone: 1(023)[address] [place], [place] 0448805-03-2022 13:56-0400Respiratory rate17 /minDavigenna Short MD Work Phone: 1(286)[address] [place], [place] 0448805-03-2022 13:56-0472KsC8% (BldA) [Mass fraction]100 %Evita Short MD Work Phone: 1(688)[address] [place], [place] 0448805-03-2022 13:56-0400Systolic blood cxodthbo649 mm[Hg]Evita Short MD Work Phone: 1(300)[facility] [place], [place] 9706001-31-2022 23:50-0500Body uzjeoz590.6 cm Flakito Mirza MD Work Phone: 1(038)[facility] [place], [place] 4310601-31-2022 23:50-0500Body mass index (BMI) [Ratio]43.58 kg/t3FfhfsqtFlakito Mirza MD Work Phone: 1(485)[facility] [place], [place] 4310601-31-2022 23:50-0500Body blurqflnnri80.29 [degF]Flakito Mirza MD Work Phone: 1(010)[facility] [place], [place] 4310601-31-2022 23:50-0500Body nuwooi190.47 kg Flakito Mirza MD Work Phone: 1(806)[facility] [place], [place] 4310601-31-2022 23:50-0500Diastolic blood oavwdbub93 mm[Hg]Flakito Mirza MD Work Phone: 1(460)[facility] [place], [place] 4310601-31-2022 23:50-0500Heart rate82 /min Flakito Mirza MD Work Phone: 1(167)[address] [place], [place] 4310601-31-2022 23:50-0500Respiratory rate18 /minFlakito Mirza MD Work Phone: [facility]zg[facility]46-16-7986 23:50-6808JsH7% (BldA) [Mass fraction]100 %Flakito Mirza MD Work Phone: 1(858)893-[address] [place], [place] [address]Uiszpv85-64-1865 23:50-0500Systolic blood xejimdsz462 mm[Hg]Flakito Mirza MD Work Phone: 1(616)853-[address] [place], [place] 4310612-12-2021 00:47-0500Body mmzrsgzewrj87.59 [degF]Alexandra Roa MD Work Phone: 1(870)[facility] [place] [address]-12-2021 00:47-0500Diastolic blood ygqyfewk90 mm[Hg]Alexandra Roa MD Work Phone: 1(067)[facility] [place], [place] 1542212-12-2021 00:47-0500Heart rate74 /min Alexandra Roa MD Work Phone: 1(835)[facility] [place], [place] 1542212-12-2021 00:47-0500Respiratory rate18 /minAlexandra Roa MD Work Phone: 1(022)636-[address] [place] [address]-12-2021 00:47-1931FrR0% (BldA) [Mass fraction]96 %Alexandra Roa MD Work Phone: 1(698)220-[address] [place], [place] 1542212-12-2021 00:47-0500Systolic blood yyhjshbl597 mm[Hg]Alexandra Roa MD Work Phone: 1(811)839-[address] [place], [place] 1542211-23-2021 18:31-0500Body .5 [degF]Pedro Garcia DO Work Phone: 1(055)340-[address] [place], [place] 4310611-23-2021 18:31-0500Diastolic blood beqmlsyt66 mm[Hg]Pedro Garcia DO Work Phone: 1(295)654-[address] [place] [address]-23-2021 18:31-0500Heart rate92 /min Pedro Garcia DO Work Phone: [facility] CenterIvklmq52-44-6192 18:31-0500Respiratory rate20 /minPedro Garcia DO Work Phone: 1(536)133-[address] [place] [address]-23-2021 18:31-1552AfQ7% (BldA) [Mass fraction]100 %Pedro Garcia DealerRater Work Phone: [facility]senseTjhqje99-13-7596 18:31-0500Systolic blood ytqfklqt750 mm[Hg]Pedro Garcia DO Work Phone: [facility]HealthsenseLhvvig11-72-7413 18:28-0500Body .6 cm Pedro Garcia DealerRater Work Phone: [facility]HealthsenseRtwrng89-60-8825 18:28-0500Body mass index (BMI) [Ratio]40.19 kg/p7Lvvtnsm Krebs DealerRater Work Phone: [facility] HealthcareHealthsenseDxxewv58-43-7183 18:28-0500Body oujzld728.95 kg Pedro Garcia DealerRater Work Phone: [facility]HealthsenseGzqfbq05-06-3992 02:37-0400Body .6 cm César Rodriguez DealerRater Work Phone: [facility] Work Phone: 1(419) 868-534609-17-2021 02:37-0400Body mass index (BMI) [Ratio] 43.58 kg/z0Qwttdpe Keepy Work Phone: [facility] [employer] Phone: 1(966) 676-899309-17-2021 02:37-0400Body yuzvisxzqhd65.2 [degF] César Rodriguez DealerRater Work Phone: [facility] [employer] Phone: 1(547) 861-702309-17-2021 02:37-0400Body qzgmik943.47 kgSthoa Keepy Work Phone: [facility] Phone: 1(367) 321-545109-17-2021 02:37-0400Diastolic blood mm[Hg] César Rodriguez DealerRater Work Phone: [facility] Phone: 1(788) 711-348509-17-2021 02:37-0400Heart rate87 /minStewart JenniferWeb Africa Work Phone: [facility] Phone: 1(448) 886-865909-17-2021 02:37-0400Respiratory rate16 /minStewart Jennifer DO Work Phone: [facility] Work Phone: 1(294) 122-183909-17-2021 02:37-9724TsF6% (BldA) [Mass fraction]99 % César Rodriguez DO Work Phone: [facility] Work Phone: 1(270) 674-478809-17-2021 02:37-0400Systolic blood efffiavi530 mm[Hg] César Rodriguez DO Work Phone: [facility] Work Phone: 1(374) 710-770508-24-2021 23:31-0400Diastolic blood ieeqcmhf05 mm[Hg] César Rodriguez DO Work Phone: [facility] Work Phone: 1(981) 121-123808-24-2021 23:31-0400Systolic blood zjtgybxk581 mm[Hg] César Rodriguez DealerRater Work Phone: [facility] Work Phone: 1(697)741-436320-52019707-49-9775 23:17-0400Body ndayzk147.6 cmStekaila Rodriguez DealerRater Work Phone: [facility] Work Phone: 1(135)475-622218-40539688-68-2707 23:17-0400Body mass index (BMI) [Ratio] 44.87 kg/x6Nxijdnihoa Rodriguez DealerRater Work Phone: [facility] Work Phone: 1(700)186-236267-63167288-59-1764 23:17-0400Body pgounsdntfw53.4 [degF] César Rodriguez DealerRater Work Phone: [facility] Work Phone: 1(831) 570-362808-24-2021 23:17-0400Body .1 kgStewmaryann Rodriguez DO Work Phone: [facility] Work Phone: 1(549)[phone] 23:17-0400Heart rate88 /minStewarmaryann Rodriguez DO Work Phone: [facility] Work Phone: 1(641) 381-479608-24-2021 23:17-0400Respiratory rate20 /minSblair Rodriguez DO Work Phone: [facility] Work Phone: 1(101) 734-238408-24-2021 23:17-6309WlM9% (BldA) [Mass fraction]98 % César Rodriguez DealerRater Work Phone: [facility] Work Phone: 1(298)[phone] 02:08-0400Body uarhtn829.6 cmStekaila Rodriguez DealerRater Work Phone: [facility] Work Phone: 1(179) 300-146607-23-2021 02:08-0400Body mass index (BMI) [Ratio] 43.58 kg/c6Sfuvwhihoa Rodriguez DealerRater Work Phone: [facility] Work Phone: 1(007)[phone] 02:08-0400Body sochqfwvbrh25.29 [degF] César Rodriguez DealerRater Work Phone: [facility] Work Phone: 1(624) 698-697407-23-2021 02:08-0400Body ghhcci422.47 kgSthoa Rodriguez DealerRater Work Phone: [facility] [employer] Phone: 1(984) 611-266607-23-2021 02:08-0400Diastolic blood hefbrhus51 mm[Hg] César Rodriguez DealerRater Work Phone: [facility] Work Phone: 1(949)[phone] 02:08-0400Heart rate96 /Modesta Rodriguez DealerRater Work Phone: [facility] Work Phone: 1(218)[phone] 02:08-0400Respiratory rate18 /minSblair Rodriguez DealerRater Work Phone: [facility] Work Phone: 1(323) [phone] 02:08-1919IaA4% (BldA) [Mass fraction]97 % César Rodriguez DO Work Phone: [facility] Work Phone: 1(140) 796-703407-23-2021 02:08-0400Systolic blood ffynkaoi065 mm[Hg] César Rodriguez DO Work Phone: [facility] Work Phone: 1(444) [phone] 04:00-0400Heart rate63 /minGeorgiana Larsen MD Work Phone: [facility] Work Phone: 1(657) [phone] 04:00-0400Respiratory rate25 /Anastacia Larsen MD Work Phone: [facility] Work Phone: 1(752) 493-825307-17-2021 04:00-4481FnE1% (BldA) [Mass fraction]97 % Georgiana Larsen MD Work Phone: [facility] Work Phone: 1(942) 529-357107-17-2021 02:30-0400Diastolic blood hyvdcbns04 mm[Hg] Georgiana Larsen MD Work Phone: [facility] Work Phone: 1(437) 593-650507-17-2021 02:30-0400Systolic blood qksjwhze019 mm[Hg] Georgiana Larsen MD Work Phone: [facility] Work Phone: 1(919) 756-741507-17-2021 02:22-0400Body psraet012.6 cmGeorgiana Larsen MD Work Phone: [facility] Work Phone: 1(537) 726-190007-17-2021 02:22-0400Body mass index (BMI) [Ratio] 42.77 kg/w1GdirzGeorgiana Larsen MD Work Phone: [facility] Work Phone: 1(128) 411-730907-17-2021 02:22-0400Body ueswgwsgybm33.01 [degF]Georgiana Larsen MD Work Phone: [facility] Work Phone: 1(985) [phone] 02:22-0400Body .2 kgGeorgiana Larsen MD Work Phone: [facility] Work Phone: 1(667) 707-917007-16-2021 12:02-0400Body exmlel673.6 cmFlakito Castro MD Work Phone: [facility] Work Phone: 1(770) 530-461607-16-2021 12:02-0400Body mass index (BMI) [Ratio] 43.26 kg/p1CfltxzlFlakito Castro MD Work Phone: [facility] Work Phone: 1(844) 313-144907-16-2021 12:02-0400Body eksjzwhlemp54.71 [degF] Flakito Castro MD Work Phone: [facility] Work Phone: 1(259) 722-553707-16-2021 12:02-0400Body jdpuzs393.56 kgFlakito Castro MD Work Phone: [facility] Work Phone: 1(275) 376-490107-16-2021 12:02-0400Diastolic blood mm[Hg] Flakito Castro MD Work Phone: [facility] Work Phone: 1(933) [phone] 12:02-0400Heart rate88 /minFlakito Castro MD Work Phone: [facility] Work Phone: 1(280) [phone] 12:02-0400Respiratory rate20 /minFlakito Castro MD Work Phone: [facility] Work Phone: 1(280) 185-504107-16-2021 12:02-7831XwL1% (BldA) [Mass fraction]99 % Flakito Castro MD Work Phone: [facility] Work Phone: 1(778) 358-392207-16-2021 12:02-0400Systolic blood mkyacgqt813 mm[Hg] Flakito Castro MD Work Phone: [facility] Work Phone: 1(453) 357-532207-11-2021 23:19-0400Diastolic blood niuaxeju07 mm[Hg] Kelly Serrano MD Work Phone: [facility] Work Phone: 1(807) 642-247207-11-2021 23:19-0400Systolic blood rleycjsk562 mm[Hg] Kelly Serrano MD Work Phone: [facility] Work Phone: 1(599) 529-998407-11-2021 23:16-0400Body tdogtg540.6 cmAmuna Serrano MD Work Phone: [facility] Work Phone: 1(351) 650-280207-11-2021 23:16-0400Body mass index (BMI) [Ratio] 43.26 kg/k6SlalkhKelly Serrano MD Work Phone: [facility] Work Phone: 1(304) 909-455007-11-2021 23:16-0400Body bpabicorxtc22.3 [degF]Kelly Serrano MD Work Phone: [facility] Work Phone: 1(123) 193-460907-11-2021 23:16-0400Body aebbgt652.56 kgKelly Serrano MD Work Phone: [facility] Work Phone: 1(714) 290-423407-11-2021 23:16-0400Heart rate93 /minKelly Serrano MD Work Phone: [facility] Issue Work Phone: 1(282) 276-818807-11-2021 23:16-0400Respiratory rate16 /minKelly Serrano MD Work Phone: [facility] Issue Work Phone: 1(843) 272-163107-11-2021 23:16-6430NeG3% (BldA) [Mass fraction]99 % Kelly Serrano MD Work Phone: [facility] Issue Work Phone: 1(292) 548-509407-09-2021 00:00-0400Body vhykdx031.6 Oumar Finley MD Work Phone: [facility] Issue Work Phone: 1(499) 459-594607-09-2021 00:00-0400Body mass index (BMI) [Ratio] 43.26 kg/a8QcjedutrbElton Finley MD Work Phone: [facility] Issue Work Phone: 1(957) [phone] 00:00-0400Body cmbrev660.56 kgElton Finley MD Work Phone: [facility] Issue Work Phone: 1(289)[phone] 23:23-0400Body rdafkyyjyxb83.5 [degF] Elton Finley MD Work Phone: [facility] Issue Work Phone: 1(011)[phone] 23:23-0400Diastolic blood flmbvakb74 mm[Hg] Elton Finley MD Work Phone: [facility] Issue Work Phone: 1(074)032-423902-16108435-42-2225 23:23-0400Heart rate87 /Fabian Finley MD Work Phone: [facility] Issue Work Phone: 1(170) 782-512807-08-2021 23:23-0400Respiratory rate16 /minElton Finley MD Work Phone: [facility] Issue Work Phone: 1(776) 168-261407-08-2021 23:23-5912JbZ3% (BldA) [Mass fraction]99 % Elton Finley MD Work Phone: [facility] Issue Work Phone: 1(057)[phone] 23:23-0400Systolic blood vzgudqpn406 mm[Hg] Elton Finley MD Work Phone: [facility] Issue Work Phone: 1(751) 359-552904-01-2021 14:18-0400Body Donrtekoqwr45.1 [degF] Chuck Charles [employer] Work Phone: 1(948) 705-903604-01-2021 13:42-0400BMI (Body Mass Index)41.97 kg/m2 Chuck Charles [employer] Work Phone: 1(432)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 02-54-2723Mjlca test visual color cmprsn methsJoshua R Gruenbaum DO Work Phone: Start: 99-68-7638Wqddjlciwxriv metabolic panelJohana Ayala MD Work Phone: Start: 75-20-6120Ygnuh panelJohana Ayala MD Work Phone: Start: 74-87-0924Tstiwabzheaq chorionic quantitative Odalys Moore [employer]ARD[employer] - CASH CLERK Work Phone: Start: 24-80-5344Okvgwpsjnwe observation [Identifier] in Cervix by Cyto stainJohana Ayala MD Work Phone: Start: 60-39-1501Krxzo clavicle completeJomia Wu DO Work Phone: Start: 67-21-0649Rtspnrhxih exam chest single view Khang Wu DO Work Phone: Start: 93-60-9687Algbe test visual color cmprsn methsGiorgi Ramos MD Work Phone: Start: 14-30-5105Lnvre hip unilateral with pelvis 2-3 viewsE Brant Roger MD Work Phone: Start: 12-02-7822Kl abdomen & pelvis w/contrast materialMelina Angie Conde DO Work Phone: Start: 78-64-1377Knude dip stick/tablet reagent auto microscopyMelina F Elton DO Work Phone: Start: 53-60-6605Eaycg of lipaseMelina F Elton DO Work Phone: Start: 48-60-5880GGKEI METABOLIC PANEL W/ REFLEX TO MG FOR LOW KMelina F Elton DO Work Phone: Start: 37-25-7818Qaziewd function panelMelina F Elton DO Work Phone: Start: 63-76-4006Rt abdomen & pelvis w/o contrast Diann Roger MD Work Phone: Start: 09-08-2020 End: 13-71-5259Nvlxqolnggzxo metabolic panelStewart Jennifer DO Work Phone: Start: 84-40-4297Rwyobuchjm exam chest 2 viewsAlyse Roger MD Work Phone: Start: 82-20-5219QWOTKNHX REJECTIONAlyse Roger MD Work Phone: Start: 96-25-4686Kokna test visual color cmprsn methsE Brant Roger MD Work Phone: Start: 95-47-4158Mljrw dip stick/tablet reagent auto microscopyAlyse Roger MD Work Phone: Start: 56-31-5701Jlsrlkjmvbvwp metabolic panelGeorgiana Larsen MD Work Phone: Start: 32-95-1901PUDWI-19, RAPIDGeorgiana Larsen MD Work Phone: Start: 72-82-1983Ruwqjpjnpr exam chest single view Flakito Castro MD Work Phone: Start: 35-98-1310Vhoyfggyswqo chorionic qualitative Flakito Castro MD Work Phone: Start: 62-98-8628Ffmjh ankle complete minimum 3 views Alix Mercedes MD Work Phone: Start: 27-34-9580Bmgxo test visual color cmprsn methsJenna Melissa Mercedes MD Work Phone: Start: 29-30-8270Nsgnk wrist complete minimum 3 views Magdylila Mireles DO Work Phone: Start: 84-67-8085Rvn-scan artl vidal abdl/pel/scrot&/rpr orgn lmtChristopher K [employer] Work Phone: Start: 65-96-9293Cc transvaginalChristopher K [employer] Work Phone: Start: 07-63-9208Xzhul manuela species direct probe tq Christopher K [employer] Work Phone: Start: 93-18-7065Gkwxd dip stick/tablet reagent auto microscopyChristopher K Bit[employer] Holdingsger Work Phone: Start: 50-70-6459Pe abdomen & pelvis w/contrast materialChristopher K Bitauto Holdingsger Work Phone: Start: 87-02-8013Vtnjj of lipaseChristopher K Bitauto Holdingsger Work Phone: Start: 66-32-1429Zzvyn of magnesiumChristopher K Bitauto Holdingsger Work Phone: Start: 11-46-2778NGDHA METABOLIC PANEL W/ REFLEX TO MG FOR LOW KChristopher K Seager Work Phone: Start: 08-90-8394Ewetk count complete auto&auto difrntl wbcChale Rivera Work Phone: Start: 43-63-0428Bpkvnrrxksdg chorionic qualitative Christtamiko Rivera Work Phone: Start: 00-80-8576Agbkcqm function panelCheileentopher Jerome Rivera Work Phone: Start: 04-91-2628Ekhnjvpsmo exam chest 2 viewsLakatarina Dong Work Phone: Start: 91-11-5450Btmzrdrxwp exam chest single view Kirsten Lee Work Phone: Start: 39-78-1925Mdlun of troponin quantitativeFranciscolin Dixon Granados Work Phone: Start: 16-05-9386Utxodg dgradj products d-dimer quantitativeColin M Roberta Work Phone: Start: 43-40-3536Tuyxo count complete auto&auto difrntl wbcAlexandra Hendricks Work Phone: Start: 39-42-8956Xjdgjumcwz exam chest single view Zach M Roberta Work Phone: Start: 51-64-6262Gcmrr of troponin quantitativeFranciscolin Dixon Granados Work Phone: Start: 97-41-0121Gwpvo metabolic panel calcium total Zach M Roberta Work Phone: Start: 87-61-7279Blfyhmojuyze chorionic qualitative Zach M Roberta Work Phone: Start: 83-84-6680MBRDZELT REJECTIONColin M Roberta Work Phone: Start: 34-90-4514Cgthvbxea streptococcus group a CHAR RONEYStart: 74-34-2384Pr thorax w/contrast materialAdam Angie [employer] Work Phone: Start: 50-81-2492Akvkg of lipaseAdam J [employer] Work Phone: Start: 39-28-7674Cdxet count complete auto&auto difrntl wbcAdadixon Adams [employer] Work Phone: Start: 56-74-8439Xpdsgqdianch chorionic qualitative Austin Adams [employer] Work Phone: Start: 90-73-4576Nexfxmsgky microscopic onlyAdadixon Adams [employer] Work Phone: Start: 42-60-5289Dkthx dip stick/tablet rgnt auto w/o microscopyAdadixon Adams [employer] Work Phone: Start: 17-39-8239Klr routine ecg w/least 12 lds w/i&r Austin Adams [employer] Work Phone: Start: 65-16-1052Qjk routine ecg w/least 12 lds w/i&r CHAR RONEYStart: 88-26-9923ACMLXZGWG PATIENTISSAM JOSEPHStart: 79-44-2411CQR 12-LEADISSAM JOSEPHStart: 59-07-5344BCKN GENERALISSAM JOSEPH Start: 19-41-3009VKVF CODEISSAM JOSEPHStart: 84-78-6081SJ CONSULT TO HOSPITALISTISSADixon RUIZStart: 37-41-4535FENZUEIOUPVS JOSEPHStart: 08-24-2017 NURSING COMMUNICATIONISSAM JOSEPHStart: 46-19-8296PJVTNIN CESSATION EDUCATION ISSAM Jenniferart: 54-36-1295AGMBPQBBIEJQ VISITATION STATUSISSAM JOSEPHStart: 03-32-3294KOSBW SIGNSISSAM JOSEPHStart: 28-48-4472HSYZJQG STATUS (FROM ED OR OR/PROCEDURAL)ISSAM JOSEPHStart: 84-03-4946ANOFHRAKGUHMK LEVELISSAM JOSEPH Start: 31-86-3366Ijnel of thyroid stimulating hormone tshISSAM JOSEPHStart: 85-69-6691Awrbx count complete auto&auto difrntl wbcISSAM Jenniferart: 74-57-3985WO-MB INDEXISSAM JOSEPHStart: 67-74-7159Mfzrotdjlajvc metabolic panel ISSAM JOSEPHStart: 04-81-8965YWFEJHDFNGOJ JOSEPHLancaster: 28-94-8128HYQLATJWID LEVELISSAM [facility] VALLEY HOSPITALVICENTEart: 73-14-9582Oxprgeb bacterial quanttative colony count urineISSAM ENOCHVICENTELancaster: 95-39-0099Wexnaeaipvs urinalysisISSAM JOSEPHLancaster: 48-35-7800FODEB DRUG SCREENISSAM TXGARYart: 44-45-6082Uckcp test visual color cmprsn methsISSASALEM CITY HOSPITALVICENTELancaster: 30-81-6177HFAMF RT REFLEX TO CULTUREISSAM [facility] Centerart: 32-02-4155QFOVPUZ PRECAUTIONSISSAM TXGARYLancaster: 94-51-1175Xtfqebjrqwf of shoulderA Olexa Noemy Repair of musculotendinous cuff of shoulderMichael ClingmanComment on above:leftwisdom teeth extractionMichael Clingman Plan of Treatment DateCare ActivityDetailAuthorStart: 94-53-3865LZiP,Tdap and Td Vaccines (2 - Td or Tdap)DTaP,Tdap and Td Vaccines (2 - Td or Tdap)[facility] SystemStart: 69-99-1215EVcE/Tdap/Td vaccine (2 - Td or Tdap)DTaP/Tdap/Td vaccine (2 - Td or Tdap)[facility]: 00-49-3937RLwI/Tdap/Td vaccine (2 - Td)DTaP/Tdap/Td vaccine (2 - Td)[facility], [place]Start: 86-62-8666Lwrfgywzo for malignant neoplasm of cervixPap smearBON SECOURS [facility]ENTERStart: 23-41-6526Ssblu BMI ScreeningAdult BMI ScreeningProAcmc Healthcare System SystemStart: 41-49-7027Mljnjpa ScreeningTobacco ScreeningPike Community Hospital SystemStart: 45-35-5005Srcsscpot for malignant neoplasm of cervixPap smearKettering Health – Soin Medical CenterStart: 82-70-4556Gkeef BMI ScreeningAdult BMI ScreeningProAcmc Healthcare System SystemStart: 17-59-9015Tjneugy ScreeningTobacco ScreeningPike Community Hospital SystemStart: 77-67-2503CRKC visit, estab ptMedical Established [facility]Health [facility] Work Phone: Start: 06-16-2023 End: 12-22-4878Ddevaae education based on identified needHealth [facility]: 02-06-1356VPON visit, estab [facility] Patient Health [facility] Work Phone: Start: 92-33-6021Gmguuexcnjtnc metabolic 2000 panel - Serum or PlasmaHealth [facility]: 04-23-2023 End: 92-25-8454Ewrypzo education based on identified needBHP and PA discussed patient's mood and overal functioning, noting that patient reports feeling that medication has been helpful, feels that depression and anxiety have decreased. BHP and PA discussed patient's concerns related to sleep, discussed options to treat sleep, noting that patient is allergic to melatonin and feels that trazadone makes her too groggy, agreed to trial of doxylamine. Discussed sleep hygiene as wellHealth [facility]: 97-41-1366UTMX visit, estab [facility]Law[facility] Work Phone: Start: 04-23-2023 End: 19-23-5332Kliwkat education based on identified needHealth [facility]: 04-09-2023 End: 83-41-0895Vboavak education based on identified need*BHP offered active and supportive listening, normalized emotions and feelings, and processed current stressors noting patient is endorsing worsening anxiety, depression, and sleep issues. BHP and PAdiscussed previous medications she was on acknowledging that patient would like to restart the samemedications she was on previously. BHP and PA discussed nicotine replacement with patient noting patient would like nicotine patches as they worked for her in the past. Patient was receptive during todays visitHealth [facility]: 04-09-2023 End: 92-84-6695Jgnphxez instructions for treatmentIntervention and counseling on cessation of tobacco use, 3-10 minutes Discussed medication and nicotine replacement for tobacco cessationHealth [facility]: 04-09-2023 End: 10-89-9758Mdrtzoi education based on identified needHealth [facility]: 04-09-2023 End: 51-78-4077Aheseyvk instructions for treatmentIntervention and counseling on cessation of tobacco use, 3-10 minutes Discussed medication and nicotine replacement for tobacco cessationHealth [facility]: 74-17-9839Gedrvfzrjq MonitoringDepression MonitoringBON [facility] Start: 64-65-6937CCQW visit, maria ptHealth [facility]: 26-28-8623Ofzvl Diagnostic Test:[facility]: 01-24-2023 End: 56-48-2549Jvnrilr education based on identified need*BHP offered active and supportive listening, normalized emotions and feelings, and processed current stressors. ~*Discussed healthy coping skills and positive supports in patient's life. ~*Discussedproper sleep hygiene skills to implement to improve sleep. ~ [facility]: 01-24-2023 End: 75-23-1775Tqcikih education based on identified needEdward [facility]. [facility]: 83-09-1182RXCJ visit, maria ptMedical Established Patient [facility] Work Phone: Start: 19-15-4205JOGOY Lab:[facility]: 11-29-2022 End: 89-96-1873Kfntkcx education based on identified needEdward [facility]. [facility]: 45-91-0621Xhili a Strep DNA (GASDNA)[facility]: 11-05-2022 End: 70-83-2916Eqhuwdw education based on identified needEdward [facility]. [facility]: 53-50-8298WBCKP-19 Vaccine ( season)COVID-19 Vaccine ( season)[facility] SystemStart: 51-05-9367Ojfpoi [facility]: 10-17-2022 End: 65-62-6648Ayuitxr education based on identified needEdward [facility]. [facility]: 10-17-2022 End: 02-16-7409Dwbkaqwu instructions for treatmentIntervention and counseling on cessation of tobacco use, 3-10 minutes Discussed medication and nicotine replacement for tobacco cessationEdward P. [facility]: 40-19-1994OOS panel - Blood by Automated countLawrence General Hospital Start: 69-17-7856Gldxvdhp [Mass/volume] in Serum or PlasmaFERRITINLawrence General HospitalStart: 10-09-2022 End: 75-12-6632Gfqtfau education based on identified needLawrence General HospitalStart: 09-18-2022 End: 54-04-7871Szmyqjs education based on identified needHealth [facility] PointStart: 59-01-4068Fchxgzttu vaccinationBON [facility], [facility]ONStart: 33-27-4909LFHC visit, estab ptMedical Established PatientLawrence General Hospital Work Phone: Start: 26-90-1946Amtzs BMI Follow Up PlanAdult BMI Follow Up PlanPike Community Hospital SystemStart: 23-94-8446Wfdwthmlmw Screening Depression ScreeningNovant Health New Hanover Orthopedic Hospitaltart: 46-76-2866Bjpihtcvpk A1c rxbwylahsrrQ4R test (Diabetic or Prediabetic)[facility]ONStart: 07-11-2022 End: 37-55-2549Nzzxrht encounter codnggbkr49/25/2023 Office Visit Obstetrics and Gynecology Ela Sen, [employer]EWARD[employer] - P[employer] SANDER [address] [place] [address] [facility] BERTO OB GYNStart: 82-86-5331Ndynd Diagnostic Test:[facility] HospitalStart: 05-27-2022 End: 64-75-3162Jwsvuaf education based on identified needLawrence General HospitalStart: 02-46-5686VLFZ visit, estab ptMedical Established Patient [facility] Work Phone: Start: 75-36-7747LgpkwhtrlrVolmrhLawrence General Hospital Work Phone: Comment on above:Note: Please make a referral to: Start: 05-17-2022 End: 48-53-4218Cwzxvdq education based on identified needLawrence General HospitalStart: 29-32-5912Ipnezekbld A1c iwpfpcuhwxwQ3O test (Diabetic or Prediabetic)[facility] CenterStart: 93-29-6305Zchjrpuukf MonitoringDepression MonitoringMerHarborview Medical CenterStart: 67-09-0644NFJ panel - Blood by Automated count Health [facility] PointStart: 19-92-9620Ynlhfc [facility] Work Phone: Comment on above:Note: Please make a referral to: Start: 04-29-2022 End: 77-22-7141Hzytaup education based on identified needHealth [facility] PointStart: 70-79-0754OMSYI-19 Vaccine (3 - Mixed Product series)COVID-19 Vaccine (3 - Mixed Product series)[facility]: 10-18-2021 Influenza vaccinationFlu vaccine (Season Ended)[facility]art: 09-17-2021 Influenza vaccinationFlu vaccine (#1)[facility]ITALStart: 07-19-2021 End: 02-84-6860Oxczzae evaluation of patient and duypyv2107/19/2021 Nurse Only [facility] Gy[facility]cologyUniversity [facility] GynecologyStart: 07-19-2021 End: 25-91-7318Knuiqqg encounter qmeplqqyz16/02/2022 Appointment Physical Therapy Trixie Dong, PTSTVZ Physical TherapyStart: 07-05-2021 End: 37-03-2209Zqpxvnq encounter merpyptrv90/19/2022 Office [facility]ISTSStart: 07-02-2021 End: 40-59-2031Lkquyxz evaluation of patient and tzeawx5707/02/2021 Nurse Only [facility] and GynecologyUniversity [facility] Obstetrics GynecologyStart: 06-21-2021 End: 14-76-6517Cjrmqxe encounter eccmqeacj48/05/2022 Office Visit Orthopedic SurgeryU[facility]TH[facility] SPECIALISTSStart: 06-14-2021 End: 33-30-4641Tuvpdwa encounter rusufqpat62/28/2022 Office Visit Internal Medicine Johana Ayala MD [address] [facility] [address] [place] [address] [facility] CareStart: 05-15-2021 End: 89-04-7003Awrlozq encounter elhfkdmwq02/29/2022 Appointment Pulmonary Function TestingSTVZ Pulm Function TestStart: 46-99-4821Ohmsstltn for Chlamydia trachomatisKettering Health [facility] So[facility] Medical CenterStart: 03-29-2021 End: 29-06-2838Kcnujoo encounter ogsouzsgr33/10/2022 Office Visit Orthopedic SurgeryU[facility]TH[facility] SPECIALISTSStart: 03-06-2021 End: 97-60-2659Udbkrqv encounter izpxauawz46/18/2022 Office Visit Obstetrics and Gynecology Celeste Eng, [address] [facility] [address] [place] [address] [facility] mechanical tech [place]tonStart: 03-05-2021 End: 78-80-0693Rjooisr encounter flfddqebl40/17/2022 Office Visit Obstetrics and Gynecology Celeste Eng, [address] [facility] [address] [place] [address] [facility] mechanical tech AltonStart: 01-30-2021 End: 40-05-3105Pxcqvqt encounter jlquvocvv94/14/2021 Appointment Physical Therapy Maribel He, PTSTVZ Physical TherapyStart: 19-25-4691TDGAY-19 Vaccine (2 - Mixed Product series)COVID-19 Vaccine (2 - Mixed Product series)[facility]Start: 12-55-0333POJFL-19 Vaccine (2 - Inadvertent 3-dose series)COVID-19 Vaccine (2 - Inadvertent 3-dose series)[facility] CenterStart: 71-71-6802SFOMJ-19 Vaccine (2 - Mixed Product series)COVID-19 Vaccine (2 - Mixed Product series)[facility]Start: 11-14-2020 End: 99-03-9250Xnsmmwt encounter kpmniqurn98/28/2021 Office Visit Orthopedic Surgery Matthew Soler, [address] [address] [address] [place] [address] [phone] [facility] ORTHO SPECIALISTSStart: 85-67-8076Dbcxgujvq vaccinationKettering Health – Soin Medical CenterStart: 06-82-0139Auxymmtgo vaccinationDiley Ridge Medical Center, [place]Start: 98-50-1568Jqzpqqijjn measurementCreatinine [facility]: 77-88-4271Azmsvzyko monitoringPotassium [place], [place] Start: 51-20-6329Cufqigiil for malignant neoplasm of cervixMercy Health: 41-84-6292TBKKB-19 Vaccine (1)COVID-19 Vaccine (1)[facility] Work Phone: start: 45-85-8513Nshfchogt for Chlamydia trachomatis Chlamydia screenMcCullough-Hyde Memorial Hospital: 36-32-4497JVQ screeningHIV screen [facility] Administrationart: 97-00-3614DGVXE-19 Vaccine (1)COVID-19 Vaccine (1)[facility]: 32-47-5077Yqvgvmrmrr MonitoringDepression [facility] Start: 09-02-6141PVX vaccine (1 - 2-dose series)HPV vaccine (1 - 2-dose series) [facility]: 20-30-8801Wueachipbvqd 0-64 years Vaccine (1 - PCV) Pneumococcal 0-64 years Vaccine (1 - PCV)[facility]: 08-03-2003 Pneumococcal 0-64 years Vaccine (1 of 1 - PPSV23)Pneumococcal 0-64 years Vaccine (1 of 1 - PPSV23)[facility]: 65-46-3401Doyoabcdpcbr 0-64 years Vaccine (1 of 2 - PPSV23)Pneumococcal 0-64 years Vaccine (1 of 2 - PPSV23)[facility]: 60-58-1984TMLHQ-19 Vaccine (1)COVID-19 Vaccine (1)[facility] Start: 39-63-1978Hrezskdfn vaccine (1 of 2 - 2-dose childhood series)[facility]: 04-87-9372Jlfvtwkxw B vaccine (1 of 3 - 3-dose series)Hepatitis B vaccine (1 of 3 - 3-dose series)[facility]ENTERStart: 1997 Hepatitis C screeningHepatitis C screenMercy Health: 67-30-5911Ultnglk CounselingTobacco CounselingProMedica Health SystemAtopobium vaginae DNA [Presence] in Vaginal fluid by ASHELY with probe detectionFirelands Regional Medical Center Work Phone: Bacterial vaginosis associated bacterium 2 DNA [Presence] in Vaginal fluid by ASHELY with probe detectionCincinnati Va Medical Center [employer] Work Phone: End: 04-23-2020.trachomatis N.gonorrhoeae DNAC.trachomatis N.gonorrhoeae DNA Microbiology Routine One Time for 1 Occurrences starting 04/23/2020until 04/23/2020[facility] Work Phone: comment on above:One Time for 1 Occurrences starting 04/23/2020 until 04/23/2020.trachomatis N.gonorrhoeae DNAC.trachomatis N.gonorrhoeae DNA Microbiology Stat [employer] Label print 04/23/2020 3:06 AM [employer] Work Phone: cBC W Auto Differential panel - BloodCBC with DIFF Lab Stat [employer] Label print 09/02/2020 2:45 AM [employer] Work Phone: ct ABDOMEN PELVIS W IV CONTRAST Additional Contrast? NoneCT ABDOMEN PELVIS W IV CONTRAST Additional Contrast? None Imaging STAT 08/09/2019 1:02 AM [employer] [place] End: 52-26-9267Qwzkjbl, UrineCulture, Urine Microbiology Routine Once for 1 Occurrences starting 08/08/2019 until 08/08/2019[facility] [employer] [place], [place]Comment on above:Once for 1 Occurrences starting 08/08/2019 until 08/08/2019Culture, Urine Culture, Urine Microbiology Routine 08/08/2019 11:06 PM [place] End: 09-56-4303Ynpryos, UrineKindred HealthcareHealthsense Work Phone: comment on above:Once for 1 Occurrences starting 06/19/2021 until 06/19/2021EKG 12 LeadEKG 12 Lead ECG STAT 08/08/2019 10:47 PM [employer] [place] End: 33-75-3403Rsnzwe 5 Pura LORENZO NEON Concierge Work Phone: Comment on above:Once for 1 Occurrences starting 10/17/2022 until 10/17/2022Megasphaera sp type 1 DNA [Presence] in Vaginal fluid by ASHELY with probe detectionFirelands Regional Medical Center Work Phone: End: 69-60-7653EKZCWHKE SPECIMENPREVIOUS SPECIMEN Lab STAT Once for 1 Occurrences starting 11/28/2019 until 11/28/2019[place], [place]Comment on above:Once for 1 Occurrences starting 11/28/2019 until 11/28/2019PREVIOUS SPECIMENSummerville, [place] End: 40-26-9252SNXQJAOB SPECIMENPREVIOUS SPECIMEN Lab Routine Once for 1 Occurrences starting 09/08/2020 until 09/08/2020[facility] Work Phone: comment on above:Once for 1 Occurrences starting 09/08/2020 until 09/08/2020 End: 21-94-5664Aytzs A DNA probe, [facility] Work Phone: Comment on above:Once for 1 Occurrences starting 10/18/2022 until 10/18/2022Urine cultureUrine CultureSheltering Arms Hospital Immunizations Immunization DateImmunizationNotesCare WowmomabYhjfsnpv35-12-4539wpvrahiwl virus vaccine, unspecified formulationMicBlanchard Valley Health System Convenient Cwfc41-86-5013srpcylshq, injectable, quadrivalent, preservative free; Translations: [Fluarix][employer] Work Phone: Health [facility] PointComhenry ford [facility] on above:Note: Patient tolerated well. No signs or symptoms of adverse reactions. Patient waited a minimum of 15 minutes.27-95-8460Fdi.Admin. over 18 yrs Any Route FIRST Injection (Physician Rehab Aid)[employer] Work Phone: Health [facility]08-23-20221st Dose MODERNA COVID-19 VaccineSyen Lewis PA-C Work Phone: [facility]09-18-20211st Dose MODERNA COVID-19 VaccineSyen Lewis PA-C Work Phone: Health [facility]09-18-2021COVID-19, [place] Vaccine, Vaccine UnspecifiedNicole Rocha MD Work Phone: [facility] CenterFsufbm56-32-8211svtjhcjno virus vaccine, unspecified formulationMer[facility] Lmts99-56-9135Szuzqtrfn, injectable, [place] Canine Kidney, preservative free, quadrivalentMarkal Aj GONZALES Work Phone: [facility] Work Phone: [phone] 371-769910963556-10-7921Xvwwzjioi Vaccine, unspecified formulation [facility], SL59-74-5288euhhvfprs virus vaccine, unspecified formulationMercy Health St[facility]ient Vbkm25-22-0737tzzzsvuqf, injectable, quadrivalent, preservative freeNicole Rocha MD Work Phone: [facility] Work Phone: [phone] 411-655309791987-25-5216syjbjvd toxoid, reduced diphtheria toxoid, and acellular pertussis vaccine, [facility]11-17-2017influenza virus vaccine, unspecified formulationReg[facility]ient Jhcx98-98-0879Elpjjadae, injectable, [place] Canine Kidney, preservative free, quadrivalentMarkal Aj GONZALES Work Phone: [facility] Work Phone: Payers DatePayer CategoryPayerPolicy ID2023MedicaidANTHEM MEDICAID [facility] MEDICAID [id number] 2022-Present [address] [place] [address] [id number]hy17-49-1524Bqxchbb [id number] 1.2.840.984058.1.13.239.2.7.3.066803.82629-06-1706RszupsySCTOGVPNLZARESOURCE [place] MEDICAID xxxxxxxxxxx 2017-Present [phone] CLAIMS DEPARTMENT [address] [place], [place] [address]jaxjgclywsf [id number] [id number] 2.16840.1.955451.3.140.1.69823.5.[id number] 2.16840.1.629438.3.140.1.82017.[id number] 2.0.1.465845.3.57[id number] 2.0.1.961937.3.57[id number] 2.0.1.120164.3.57[id number] 2.0.1.795928.3.57[id number] 2..1.590683.3.57[id number] 2.0.1.503621.3.57[id number] 2.0.1.212208.3.57[id number] 2.0.1.207239.3.57[id number] 2.0.1.130979.3.57[id number] 2.16.840.1.635145.3.57[id number] 2..840.1.003848.3.57[id number] 2.16.840.1.082061.3.57[id number] 2..840.1.637499.3.57[id number] 2..840.1.548245.3.57[id number] 2.840.1.487005.3.57[id number] 2.840.1.883491.3.57[id number] 2.840.1.677210.3.57[id number] 2.840.1.180853.3.57[id number] 2.840.1.301587.3.57[id number] 2.840.1.211572.3.57[id number] 2.840.1.851635.3.57[id number] 2.840.1.560426.3.57[id number] 2.840.1.478993.3.57[id number] 2.840.1.252141.3.57[id number] 2..840.1.225282.3.57[id number] 2..840.1.592761.3.57[id number] 2.16.840.1.553606.3.579.2.727 1960Self-[id number] Health [id number] 531azn84-e28k-8744-1539-drnwcsga3t0xScdl-[id number]-[id number]-[id number] Social History DateTypeDetailFacilityStart: 08-03-2019 End: 70-23-6194Pwrofxu smoking status NHISCurrent every day smokerK[facility] History of tobacco useCigarette SmokerMcCullough-Hyde [facility]: 08-03-2019 End: 82-39-6298Ddlefzggww smoked current (pack per day) - ReportedMcCullough-Hyde Memorial Hospital: 08-03-2019 End: 04-98-2042Dxkjcxw intakeCurrent non-drinker of alcohol (finding)[facility]: 54-01-0991Fay Assigned At BirthNot on [place], [place]Exposure to SARS-CoV-2 (event)Unable to assessMcCullough-Hyde Memorial Hospital: 11-28-2019 End: 73-44-0936Vekyjtb use and exposureNever usedMcCullough-Hyde Memorial Hospital: 04-27-2021 End: 68-23-6056Ujdylzui to SARS-CoV-2 (event)Not sureMcCullough-Hyde Memorial Hospital: 04-23-2020 End: 46-07-9965Eviqxhy smoking status NHISFormer smokerKettering Health – Soin Medical CenterStart: 04-23-2020 End: 02-49-0458Nduopms intakeCurrent drinker of alcohol (finding)[employer] Work Phone: start: 04-23-2020 End: 46-19-8323Cwftfqg CommentStopped @/02/2020[facility] Work Phone: start: 99-27-6098Mhiuhff CommentsocialSumma Health [facility] Work Phone: start: 05-07-2021 End: 75-05-6193Yooiamp SDOH Dfkhdnftp4Wshif Health Work Phone: start: 05-07-2021 End: 77-73-1394Mbyfdcg SDOH Food Kbiyt5Pqniz Health Work Phone: start: 00-93-7040Wmigjlk smoking status NHISSmoker (finding)[facility]: 03-30-2020 End: 80-41-5122Awlgygt of tobacco useFirelands Regional Medical Center Work Phone: Start: 35-34-6799Vcx Assigned At BirthFeLouis Stokes Cleveland VA Medical Centertart: 57-95-8605Miicszz smoking status NHISOccasional tobacco smokerBON SECXanitosST. 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 (finding)[facility] Full-time employment (finding)[facility] IslandAssBear River Valley Hospitalocial drinker (finding)[facility] Centerexually active (finding)[facility] HospitalGender identity finding (finding)[facility] HospitalFinding of sexual orientation (finding)[facility] IslandTothe institute of living smoking statusUnknown if ever smokedHealth [facility] of [facility] Work Phone: Start: 52-04-2315Ilheqrt SDOH Transport Non-Kpq2NWN [facility] CENTERUnited [facility] ([facility]) Work Phone: assertionExposure to pollution (event)[facility](I/We) worried whether (my/our) food would run out before (I/we) got money to buy more.Never trueSUELLEN MACARIO HEALTHAt any time in the past 12 months, were you homeless or living in mcfp [including now]?NoSUELLEN MACARIO HEALTHAssertionLives alone (finding)[facility] IslandHistory of tobacco useTobacco Use Types Packs/Day Years Used Date Smoking Tobacco: Every Day Vaping/E-cigarettes Smokeless Tobacco: NeverPike Community Hospital SystemStart: 72-28-0755Yzrzyjn Commentrefused counselingPike Community Hospital SystemStart: 05-97-2675Gbtxbob CommentOccassionalOhioHealth Berger Hospital SystemNEGATED: Highlighted rowAssertionContraception (finding)[facility] NEGATED: Highlighted rowAssertionHealth Partners of [facility] Hospital [facility] IslandNEGATED: Highlighted rowAssertionMisuses drugs (finding)[facility] NEGATED: Highlighted rowAssertionCurrent drinker of alcohol (finding)[facility] IslandNEGATED: Highlighted rowAssertionExposure to pollution (event)[facility] IslandNEGATED: Highlighted rowAssertionFinding relating to drug misuse behavior (finding)[facility] NEGATED: Highlighted rowAssertionSexually active (finding)[facility] Medical Equipment Procedure CodeEquipment CodeEquipment Original TextEquipment IdentifierDates OneTouch Ultra In Vitro [id number]: 09-18-2022 End: 48-31-2838UatLzuky UltraSoft 2 Lancets [id number]: 09-18-2022 End: 42-41-0710GssVraav Ultra In Vitro [id number]: 12-06-2022 End: 19-58-7451AktBghok Ultra In Vitro [id number]: 35-57-7050LygCwumq UltraSoft 2 Lancets [id number]: strip by other route as needed for high blood sugar.[id number]: 07-02-2021 Functional Status BngtFzvvvndsbdUotqjfFpvdnrgz92-90-4030Noidiesnqt StatusN/AFisher-[facility] Mental Status DateAssessmentResultFacilityCognitive functionOriented to time, place, and person Oriented to person, time and place (finding)[facility] Work Phone: Clinical Notes 08-24-2020 to 10-30-2023 Note Date & FntxQfmqBxnsyfcd21-18-0828 NotePatient Education Orthopedics Knee Rehabilitation in the Home [...] a stationary bike, as told by your healthcare provider. This warms up your muscles and [...] is comfortable for you, and gradually work upto your goal. ? Do not use a lot of force to bend your knee. Bend it gently. Increase activity as your knee heals. Follow these instructions at home: Activity ? Rest as told by your health care provider. ? Avoid sitting for a long time without moving. Get up to take short walks every 1?2 hours. This isimportant to improve blood flow and breathing. Ask [...] heat source that your health care provider recommends,such as a moist heat pack or a [...] with your health care provider about any jebf-abc-pgmwipc and prescription medicines that you are taking. [...] I manage the p (more content not included)...[facility]08-12-2024 NotePatient Education Nutrition BMI for Adults What is BMI? Body mass index (BMI) is a number that is calculated from a person's weight and height. BMI can help estimate how much of a person's weight is composed of fat. BMI does not measure body fat directly.Rather, it is an alternative to procedures that [...] your height. Both height and weight are measured,and the BMI is calculated from those numbers. This can be done either in [place] ([place] or metric measurements. Note that charts and online BMI calculators are available to help you find your BMI quickly and easily without having to do these calculations yourself. To calculate your BMI in [place]ian ([place] measurements: 1. Measure your weight in [...] meters squared number. In this example: 70 ?3.1 = 22.6. This is your BMI. What [...] for Disease Control and Prevention: www.cdc.gov ? [place] Heart Association: www.heart.org ? National Heart, Lung, and Blood [place]: www.nhlbi.nih.gov Summary ? Body mass index (BMI) is a number that is calculated from a person's weight and height. ? BMI may help estimate how much of a person's weight is composed of fat. BMI can help identify those who may be at higher risk for certain medical problems. ? BMI can be measured using Mal[place]ian measurements or metric measurements. ? BMI charts are used to identify whether you are underweight, normal weight, overweight, or obese. This information is not intended to replace advice given to you by your health care provider. Make sure you discuss any questions you have with your health care provider. Document Revised: 10/27/2019 Document Reviewed: 09/03/2019 [email or web address] Patient Education ? 2022 [employer].[facility] 09-02-2023 Hospital Discharge instructions Patient Education 09/02/2023 09:35:20 BMI for Adults BMI for Adults What is BMI? Body mass index (BMI) is a number that is calculated from a person's weight and height. BMI can help estimate how much of a person's weight is composed of fat. BMI does not measure body fat directly.Rather, it is an alternative to procedures that [...] your height. Both height and weight are measured,and the BMI is calculated from those numbers. This can be done either in [place]ian ([place] or metric measurements. Note that charts and online BMI calculators are available to help you find your BMI quickly and easily without having to do these calculations yourself. To calculate your BMI in [place] ([place] measurements: 1.Measure your weight in pounds [...] inches squared measurement is 70 inches x 70inches, which equals 4,900 inches squared. 4.Divide the [...] muscular build, such as an athlete, may havea BMI that is higher than 24.9. In cases like these, BMI is not an accurate measure of body fat. To determine if excess body fat is the cause of a BMI of 25 or higher, further assessments may needto be done by a health care provider. BMI is usually interpreted in the same way for men and women. Where to find more information For more information about BMI, including tools to quickly calculate your BMI, go to these websites: Centers for Disease Control and Prevention: www.cdc.gov [place] Heart Association: www.heart.org National Heart, Lung, and Blood [place]: www.nhlbi.nih.gov Summary Body mass index (BMI) is a number that is calculated from a person's weight and height. BMI may help estimate how much of a person's weight is composed of fat. BMI can help identify thosewho may be at higher risk for certain medical problems. BMI can be measured using Maldivian measurements or metric measurements. BMI charts are used to identify whether you are underweight, normal weight, overweight, or obese. This information is not intended to replace advice given to you by your health care provider. Make sure you discuss any questions you have with your health care provider. Document Revised: 10/27/2019 Document Reviewed: 09/03/2019 [email or web address] Patient Education 2022 [employer]. 09/02/2023 09:35:18 Acute Knee Pain, Adult, Xptu-fq-Nogi Acute Knee Pain, Adult Many things can [...] pillow under your knee. General instructions Take gwat-mnu-kzjmzva and prescription medicines only as told by [...] your pain with rest, medicines, light activity, anduse of ice. Get help right away if you cannot move your knee or your knee pain is very bad. This information is not intended to replace advice given to you by your health care provider. Make sure you discuss any questions you have with your health care provider. Document Revised: 07/19/2020 Document Reviewed: 07/19/2020 [email or web address] Patient Education 2022 [employer]. [facility] 07-16-2024 NotePatient Education Nutrition BMI for Adults What is BMI? Body mass index (BMI) is a number that is calculated from a person's weight and height. BMI can help estimate how much of a person's weight is composed of fat. BMI does not measure body fat directly.Rather, it is an alternative to procedures that [...] your height. Both height and weight are measured,and the BMI is calculated from those numbers. This can be done either in [place]ian ([place] or metric measurements. Note that charts and online BMI calculators are available to help you find your BMI quickly and easily without having to do these calculations yourself. To calculate your BMI in [place]ian ([place] measurements: 1. Measure your weight in [...] meters squared number. In this example: 70 ?3.1 = 22.6. This is your BMI. What [...] for Disease Control and Prevention: www.cdc.gov ? [place] Heart Association: www.heart.org ? National Heart, Lung, and Blood [place]: www.nhlbi.nih.gov Summary ? Body mass index (BMI) is a number that is calculated from a person's weight and height. ? BMI may help estimate how much of a person's weight is composed of fat. BMI can help identify those who may be at higher risk for certain medical problems. ? BMI can be measured using Maldivian measurements or metric measurements. ? BMI charts are used to identify whether you are underweight, normal weight, overweight, or obese. This information is not intended to replace advice given to you by your health care provider. Make sure you discuss any questions you have with your health care provider. Document Revised: 10/27/2019 Document Reviewed: 09/03/2019 [email or web address] Patient Education ? 2022 [email or web address] Orthopedics Acute Knee Pain, Adult Many [...] clean. ? If t (more content not included)...[facility]04-30-2024 Instructions Includes: Instructions for all patient encounters Instructions to patient Intervention and counseling on cessation of tobacco use, 3-10 minutes Discussed medication and nicotine replacement for tobacco cessation Last Documented On 4 10:17AM ; [facility] Intervention and counseling on cessation of tobacco use, 3-10 minutes Discussed medication and nicotine replacement for tobacco cessation Last Documented On 4 10:50AM ; [facility] Intervention and counseling on cessation of tobacco use, 3-10 minutes Discussed medication and nicotine replacement for tobacco cessation Last Documented On 3 8:19PM ; [facility] Education and Decision Aids were provided during visit for: Discussed nutritional needs teach healthy choices including fruits and vegetables Last Documented On 4 1:28PM ; [facility] Patient education about a pr oper diet Last Documented On 4 1:28PM ; [facility] Discussed concerns about exe rcise : promote physical activity Last Documented On 4 1:28PM ; [facility] Not requesting contraception Last Documented On 4 1:28PM ; [facility] BHP and PA discussed patient 's [...] well Last Documented On 4 12:13PM ; [facility] Discussed nutritional needs teach healthy choices including fruits and vegetables Last Documented On 4 11:01AM ; [facility] Patient education about a pr oper diet Last Documented On 4 11:01AM ; [facility] Discussed concerns about exe rcise : promote physical activity Last Documented On 4 11:01AM ; [facility] Not requesting contraception Last Documented On 4 11:01AM ; [facility] *BHP offered active and supp ortive [...] visit Last Documented On 4 4:46PM ; [facility] Discussed nutritional needs teach healthy choices including fruits and vegetables Last Documented On 4 9:12AM ; [facility] Patient education about a pr oper diet Last Documented On 4 9:12AM ; [facility] Discussed concerns about exe rcise : promote physical activity Last Documented On 4 9:12AM ; [facility] *P offered active and supp ortive listening, normalized emotions and feelings, and processed current stressors. ~*Discussed healthy coping skills and positive supports in patient's life. ~*Discussed proper sleep hygiene skills to implement to improve sleep. ~ Last Documented On 3 9:42PM ; [facility] Discussed nutritional needs teach healthy choices including fruits and vegetables Last Documented On 3 9:40AM ; [facility] Patient education about a pr oper diet Last Documented On 3 9:40AM ; [facility] Patient education about an a sthma action plan Last Documented On 3 10:31AM ; [facility] Discussed concerns about exe rcise : promote physical activity Last Documented On 3 9:40AM ; [facility] Not requesting contraception Last Documented On 3 9:40AM ; [facility] Discussed nutritional needs teach healthy choices including fruits and vegetables Last Documented On 3 9:08AM ; [facility] Patient education about a pr oper diet Last Documented On 3 9:08AM ; [facility] Discussed concerns about exe rcise : promote physical activity Last Documented On 3 9:08AM ; [facility] Discussed nutritional needs teach healthy choices including fruits and vegetables Last Documented On 3 9:57AM ; [facility] Patient education about a pr oper diet Last Documented On 3 9:57AM ; [facility] Discussed concerns about exe rcise : promote physical activity Last Documented On 3 9:57AM ; [facility] Discussed nutritional needs teach healthy choices including fruits and vegetables Last Documented On 3 9:00AM ; [facility] Patient education about a pr oper diet Last Documented On 3 9:00AM ; [facility] Discussed concerns about exe rcise : promote physical activity Last Documented On 3 9:00AM ; [facility] Not requesting contraception Last Documented On 3 9:00AM ; [facility] Discussed nutritional needs teach healthy choices including fruits and vegetables Last Documented On 3 10:07AM ; [facility] Patient education about a pr oper diet Last Documented On 3 10:07AM ; [facility] Discussed concerns about exe rcise : promote physical activity Last Documented On 3 10:07AM ; [facility] Not requesting contraception Last Documented On 3 10:07AM ; [facility] Discussed nutritional needs teach healthy choices including fruits and vegetables Last Documented On 3 10:02AM ; [facility] Patient education about a pr oper diet Last Documented On 3 10:02AM ; [facility] Discussed concerns about exe rcise : promote physical activity Last Documented On 3 10:02AM ; [facility] Discussed nutritional needs teach healthy choices including fruits and vegetables Last Documented On 3 2:56PM ; [facility] Patient education about a pr oper diet Last Documented On 3 2:56PM ; [facility] Discussed concerns about exe rcise : promote physical activity Last Documented On 3 2:56PM ; [facility] Discussed nutritional needs teach healthy choices including fruits and vegetables Last Documented On 3 2:11PM ; [facility] Patient education about a pr oper diet Last Documented On 3 2:11PM ; [facility] Discussed concerns about exe rcise : promote physical activity Last Documented On 3 2:11PM ; [facility] BHP educated patient on HPWO model [...] free Last Documented On 3 11:35AM ; [facility] Discussed nutritional needs teach healthy choices including fruits and vegetables Last Documented On 3 10:53AM ; [facility] Patient education about a pr oper diet Last Documented On 3 10:53AM ; [facility] Discussed concerns about exe rcise : promote physical activity Last Documented On 3 10:53AM ; [facility] Work Phone: 1(820) 146-839504-29-2024 Evaluation note Includes: Assessments for all patient encounters Findings Encounter Date [Z00.00 - Encounter for [facility] adult medical examination without abnormal findings] visit for: routine adult H&P Open Access - Established with Jelani Harris CNP 06/16/2023 Last Documented On 4 11:29AM ; [facility] [Z68.42 - Body mass index [B ND] 45.0-49.9, adult] assessment of body mass index was 45.2 kg/m2 Open Access - Established with Jelani Harris CNP 06/16/2023 Last Documented On 4 11:29AM ; [facility] Bipolar disorder NOS Established Patient with Odalys SMITH 04/23/2023 Last Documented On 4 12:14PM ; [facility] Nicotine dependence Established Patient with Odalys SMITH 04/23/2023 Last Documented On 4 12:14PM ; [facility] [Z68.42 - Body mass index [B ND] 45.0-49.9, adult] assessment of body mass index was 45.3 kg/m2 Medical Established Patient with Juanita Lewis PA-C 04/23/2023 Last Documented On 4 1:33PM ; [facility] Bipolar I disorder Medical Established Patient w ith Juanita Joshua MORALES-C 04/23/2023 Last Documented On 4 1:33PM ; [facility] Classic migraine with aura w ith intractable migraine with status migrainosus Medical Established Patient with Juanita Lewis PA-C 04/23/2023 Last Documented On 4 1:33PM ; [facility] Nicotine dependence continuous Medical E stablished Patient with Juanita Lewis PA-C 04/23/2023 Last Documented On 4 1:33PM ; [facility] Bipolar I disorder Established Patient with Dixon Moran LOGGING EQUIPMENT MECHANIC-S 04/09/2023 Last Documented On 4 4:48PM ; [facility] Intervention and counseling on cessation of tobacco use, 3-10 minutes Discussed medication and nicotine replacement for tobacco cessation Established Patient with Kristin Moran LOGGING EQUIPMENT MECHANIC-S 04/09/2023 Last Documented On 4 4:48PM ; [facility] Nicotine dependence Established Patient with Kristin Moran LOGGING EQUIPMENT MECHANIC-S 04/09/2023 Last Documented On 4 4:48PM ; [facility] [Z68.42 - Body mass index [B ND] 45.0-49.9, adult] assessment of body mass index Open Access - Established with Juanita MORALES-C 04/09/2023 Last Documented On 4 10:53AM ; [facility] Assessment of initial prescr iption of implantable subdermal contraceptive Open Access - Established with Juanita MORALES-C 04/09/2023 Last Documented On 4 10:53AM ; [facility] Bipolar I disorder Open Access - Established wit h Juanita MORALES-Blair 04/09/2023 Last Documented On 4 10:53AM ; [facility] Consent form on file for pro cedure :Nexplanon Open Access - Established with Juanita MORALES-Blair 04/09/2023 Last Documented On 4 10:53AM ; [facility] Intervention and counseling on cessation of tobacco use, 3-10 minutes Discussed medication and nicotine replacement for tobacco cessation Open Access - Established with Juanita Lewis PA-C 04/09/2023 Last Documented On 4 10:53AM ; [facility] Iron deficiency anemia Open Access - Est ablished with Juanita Lewis PA-C 04/09/2023 Last Documented On 4 10:53AM ; [facility] Nexplanon Implant placed Pat ient is [...] 04/09/2023 Last Documented On 4 10:53AM ; [facility] Nexplanon Implant Wound Care : Patient [...] 04/09/2023 Last Documented On 4 10:53AM ; [facility] Prediabetes Open Access - Established with Harjinder Galvandorf PA-C 04/09/2023 Last Documented On 4 10:53AM ; [facility] Bipolar I disorder BH Established Patient with Dixon steven Dean LOGGING EQUIPMENT MECHANIC-S 01/24/2023 Last Documented On 3 9:45PM ; [facility] [G47.30 - Sleep apnea, unspe cified] organic sleep apnea Medical Established Patient with Juanita Mandydorf PA-C 01/24/2023 Last Documented On 3 10:48AM ; [facility] [Z68.42 - Body mass index [B ND] 45.0-49.9, adult] assessment of body mass index was 46.3 kg/m2 Medical Established Patient with Juanita Mandydorf PA-C 01/24/2023 Last Documented On 3 10:48AM ; [facility] Classic migraine with aura w ith intractable migraine with status migrainosus Medical Established Patient with Juanita Mandydorf PA-C 01/24/2023 Last Documented On 3 10:48AM ; [facility] Mild persistent asthma with exacerbation Medical Established Patient with Juanita Barbaratendorf PA-C 01/24/2023 Last Documented On 3 10:48AM ; [facility] [Z02.1 - Encounter for pre-e mployment examination] routine pre-employment screening examination Open Access - Established with Juanita Lewis PA-C 11/29/2022 Last Documented On 3 4:45PM ; [facility] [Z11.1 - Encounter for miguel angel marcus for respiratory tuberculosis] visit for: screening for pulmonary tuberculosis Open Access - Established with Juanita Galvandorf PA-C 11/29/2022 Last Documented On 3 4:45PM ; [facility] [Z68.42 - Body mass index [B ND] 45.0-49.9, adult] assessment of body mass index Open Access - Established with Juanita Lewis PA-C 11/29/2022 Last Documented On 3 4:45PM ; [facility] Encounter for Immunization Open Access - Established with Juanita Lewis PA-C 11/29/2022 Last Documented On 3 4:45PM ; [facility] Prediabetes Open Access - Established with Harjinder harmanmakayla Joshua PA-C 11/29/2022 Last Documented On 3 4:45PM ; [facility] [Z68.42 - Body mass index [B ND] 45.0-49.9, adult] assessment of body mass index Open Access - Established with Juanita Lewis PA-C 11/05/2022 Last Documented On 3 12:38PM ; [facility] Acute serous otitis media of left ear Open Access - Established with Juanita MORALES-C 11/05/2022 Last Documented On 3 12:38PM ; [facility] [J02.9 - Acute pharyngitis, unspecified] acute pharyngitis Open Access - Established with Kb Pelaez CNP 10/17/2022 Last Documented On 3 12:51PM ; [facility] [J11.1 - Influenza due to un identified influenza virus with other respiratory manifestations] influenza with URI Open Access - Established with Kb Pelaez CNP 10/17/2022 Last Documented On 3 12:51PM ; [facility] [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) Open Access - Established with Kb Pelaez CNP 10/17/2022 Last Documented On 3 12:51PM ; [facility] [R35.0 - Frequency of mictur ition] urinary frequency Open Access - Established with Kb Pelaez CNP 10/17/2022 Last Documented On 3 12:51PM ; [facility] [Z68.42 - Body mass index [B ND] 45.0-49.9, adult] assessment of body mass index was 47.2 kg/m2 Open Access - Established with Kb Pelaez CNP 10/17/2022 Last Documented On 3 12:51PM ; [facility] Intervention and counseling on cessation of tobacco use, 3-10 minutes Discussed medication and nicotine replacement for tobacco cessation Open Access - Established with Kb Pelaez JAROD 10/17/2022 Last Documented On 3 12:51PM ; [facility] Nicotine dependence Open Access - Established wi th Kb Pelaez JAROD 10/17/2022 Last Documented On 3 12:51PM ; [facility] Venipuncture was performed Open Access - Established with Kb Pelaez JAROD 10/17/2022 Last Documented On 3 12:51PM ; [facility] [F17.200 - Nicotine dependen ce, unspecified, uncomplicated] nicotine dependence uncomplicated Medical Established Patient with Juanita Lewis PA-C 10/09/2022 Last Documented On 3 2:42PM ; [facility] [Z68.42 - Body mass index [B ND] 45.0-49.9, adult] assessment of body mass index Medical Established Patient with Juanita Mandydorf PA-C 10/09/2022 Last Documented On 3 2:42PM ; [facility] Classic migraine (with aura) with intractable migraine with status migrainosus Medical Established Patient with Juanita Mandydomaico PA-C 10/09/2022 Last Documented On 3 2:42PM ; [facility] Iron deficiency anemia Medical Establish ed Patient with Juanita Mandydomaico PA-C 10/09/2022 Last Documented On 3 2:42PM ; [facility] Prediabetes Medical Established Patient with Juanita Hattendorf PA-C 10/09/2022 Last Documented On 3 2:42PM ; [facility] [R73.03 - Prediabetes] prediabetes Open Access - Established with Juanita Galvandomaico PA-C 09/18/2022 Last Documented On 3 2:31PM ; [facility] [Z68.42 - Body mass index [B ND] 45.0-49.9, adult] assessment of body mass index Open Access - Established with Juanita Galvandomaico PA-C 09/18/2022 Last Documented On 3 2:31PM ; [facility] Classic migraine (with aura) with intractable migraine with status migrainosus Open Access - Established with Juanita Hattendorf PA-C 09/18/2022 Last Documented On 3 2:31PM ; [facility] [S80.12XD - Contusion of lef t lower leg, subsequent encounter] contusion with intact skin surface of left anterior lower leg Medical Established Patient with Juanita Mandydorf PA-C 05/27/2022 Last Documented On 3 4:00PM ; [facility] [Z68.42 - Body mass index [B ND] 45.0-49.9, adult] assessment of body mass index Medical Established Patient with Juanita Hattendorf PA-C 05/27/2022 Last Documented On 3 4:00PM ; [facility] Pain in lower leg Medical Established Patient wi Juanita Guanrf PA-C 05/27/2022 Last Documented On 3 4:00PM ; [facility] Iron deficiency anemia Chart Update with Juanita Mandydorf PA-C 05/21/2022 Last Documented On 3 4:12PM ; [facility] [E55.9 - Vitamin D deficienc y, unspecified] vitamin D deficiency Open Access - Established with Juanita Mandydorf PA-C 05/17/2022 Last Documented On 3 3:44PM ; [facility] [Z68.42 - Body mass index [B ND] 45.0-49.9, adult] assessment of body mass index Open Access - Established with Juanita Mandydorf PA-C 05/17/2022 Last Documented On 3 3:44PM ; [facility] Iron deficiency anemia Open Access - Est ablished with Juanita Hattendorf PA-C 05/17/2022 Last Documented On 3 3:44PM ; [facility] Organic sleep apnea Open Access - Established wi Juanita Barbaratendorf PA-C 05/17/2022 Last Documented On 3 3:44PM ; [facility] Primary snoring Open Access - Established with Harjinder Lewis PA-C 05/17/2022 Last Documented On 3 3:44PM ; [facility] Bipolar I disorder Established Patient with Chavez Martinez LOGGING EQUIPMENT MECHANIC 04/29/2022 Last Documented On 3 11:36AM ; [facility] Nicotine dependence Established Patient with Odalys Martinez LOGGING EQUIPMENT MECHANIC 04/29/2022 Last Documented On 3 11:36AM ; [facility] [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) Open Access New Patient with Juanita Guanrf PA-C 04/29/2022 Last Documented On 3 1:03PM ; [facility] [Z00.01 - Encounter for gene [facility] adult medical examination with abnormal findings] routine history and physical Open Access New Patient with Juanita Guanrf PA-C 04/29/2022 Last Documented On 3 1:03PM ; [facility] [Z68.42 - Body mass index [B ND] 45.0-49.9, adult] assessment of body mass index Open Access New Patient with Juanita Galvandorf PA-C 04/29/2022 Last Documented On 3 1:03PM ; [facility] Diabetes Risk Test Score was five score 04/29/2022 Open Access New Patient with Juanita Galvandorf PA-C 04/29/2022 Last Documented On 3 1:03PM ; [facility] Recurrent pharyngitis streptococcus Open Access New Patient with Juanita Guanrf PA-C 04/29/2022 Last Documented On 3 1:03PM ; [facility] Screening for Hep C Open Access New Patient with Juanita Rogerf PA-C 04/29/2022 Last Documented On 3 1:03PM ; [facility] Screening for HIV Open Access New Patient with Harjinder Guanrf PA-C 04/29/2022 Last Documented On 3 1:03PM ; [facility] Work Phone: 1(842) 765-602404-29-2024 Progress note* Progress note Date Encounter Last Documented by 06/16/2023 Open Access - Established Last d ocumented on 06/17/2023; 11:29 AM, Jelani Harris POT SANDER; [facility] Active Problems & [...] Capsule Extended Release 24 Hour 1 cap poqd, 30 days, 0 refills - EpiPen 2-Cordelia 0.3 MG/0.3ML Injection Solution Auto-injector inject into thigh at onset of allergicreaction, 30 days, 0 refills - EQ Nicotine [...] days, 5 refills - Vitamin D (Ergocalciferol) 06960 UNIT Oral Capsule 0 days, 0 refills [...] Allergies - cabbage Reaction: Anaphylaxis (Severe) - Ridley Reaction: Skin Rashes / Eruption of skin [...] BP-Sitting R107/73 mmHg BP Cuff SizeRegular Pulse Rate-Taflkba93 bpm Pulse RhythmRegular Temp-Hpbuuvie64 F Dhsxdn02 in Hrcpwv056 lbs Body Mass Index45.2 kg/m2 Body Surface Area2.3 m2 Oxygen Gzmuhgqetc16 % O2 DeviceNone (Room Air) ZeT348 % Vital Signs: - Systolic blood pressure [...] migraine, repeat in 2 hours if needed. max2/day, 30 days, 2 refills EndCited Health Reminders - Adult Well Visit 18 years and older satisfied 06/16/2023. - Assess BMI satisfied 06/16/2023. - Assess Tobacco Use satisfied 06/16/2023. - Follow Up Plan BMI Management satisfied 06/16/2023. User Defined 1 Not planning a in the next year. [id number] History of Present illness Narrative* Kirsten Blandon, [employer] - 04/30/2023 7:00 PM EDT Subjective: Patient [...] Medical History: Diagnosis Date Anxiety Bipolar disorder ([employer] [employer]) Depression Headache Multiple personality disorder ([employer] [facility] [employer]) Panic disorder PCOS (polycystic ovarian syndrome) PTSD [...] Anaphylaxis Metformin Hives and Anaphylaxis Tomato Anaphylaxis Ridley Flavor Dermatitis Grapefruit Hives Ketorolac Tromethamine Hives Nutritional Supplements Hives Shellfish Derived Facial Swelling Cabbage Hives Codeine Rash Flavoring Agent Hives and Rash And Ridley flavoring agent. Latex Rash Robaxin [Methocarbamol] Rash [...] MOUTH TWICE DAILY. RINSE MOUTH AFTER USE. ogoomqxerptiftk-bmppexkav-UD 2-30-10 mg/5 mL syrup Take 10 mL [...] file prior to visit. Objective: Vitals: 04/30/23 1944 BP: 126/61 BP Site: Left Forearm BP [...] immediately. CONNOR Mayberry 04/30/232005 documented in this encounterBrattle[facility] HospitalCounterStorm [id number] Instructions* Patient Instructions* CONNOR Mayberry - 04/30/2023 7:00 PM EDT Any difficulty in breathing go to ER Use EpiPen if symptoms worsened * Attachments The following attachments cannot be sent through Care Everywhere. * Allergic Reaction ED (Maldivian) [facility] Progress note* Progress note Date Encounter Last Documented by 04/23/2023 Established Patient Last docu mented on 04/23/2023; 12:14 PM, Odalys SMITH; [facility] Active Problems & Conditions - [...] mood since restarting Effexor, noting that she feelsanxiety has improved, depression has improved. 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 Patient is allergic to melatonin, [...] Auto-injector inject into thigh at onset of allergicreaction, 30 days, 0 refills - EQ Nicotine [...] Miscellaneous (not specified) use to check blood sugaronce per day, 30 days, 2 refills - [...] days, 5 refills - Vitamin D (Ergocalciferol) 35496 UNIT Oral Capsule Capsule, conventional 0 days, [...] And Economic Circumstances: Lives alone. 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 Sexual: Not sexually active. Gender identity Female. Allergies - cabbage Reaction: Anaphylaxis (Severe) - Ridley Reaction: Skin Rashes / Eruption of skin [...] or unable to sleep at night because yourmind is troubled all the time - these days? A little bit. [facility]03-06-2024 Progress note* Progress note Date Encounter Last Documented by 04/23/2023 Medical Established Patient Last documented on 04/23/2023; 1:33 PM, Juanita Lewis PA-C; [facility] Active Problems & Conditions - Asthma [...] nightmares. 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 She falls asleep with the tv on [...] Auto-injector inject into thigh at onset of allergicreaction, 30 days, 0 refills - EQ Nicotine [...] Miscellaneous (not specified) use to check blood sugaronce per day, 30 days, 2 refills - [...] days, 5 refills - Vitamin D (Ergocalciferol) 57903 UNIT Oral Capsule Capsule, conventional 0 days, [...] Allergies - cabbage Reaction: Anaphylaxis (Severe) - Ridley Reaction: Skin Rashes / Eruption of skin [...] R102/61 mmHg BP Cuff SizeLarge Pulse RhythmRegular Temp-Ookrgyeb85.5 F Fdkgai52 in Ypnljf233 lbs 6.4 oz Body Mass Index45.3 kg/m2 Body Surface Area2.3 m2 O2 DeviceNone (Room Air) ZuB430 % Vital Signs: - Systolic blood pressure [...] done at work/school/work? (4 Pts) A little ofthe Time, During the past 4 weeks, how often have you had shortness of breath? (5 Pts) Not at all, During the past for 4 weeks, asthma symptoms woke me up at night or earlier than (5 Pts) Not at all,During the past 4 weeks, have used rescue [...] migraine, repeat in 2 hours if needed. max2/day, 30 days, 2 refills EndCited StartCited- Other [...] Not planning a in the next year. [facility]03-06-2024 Instructions Includes: Instructions for all patient encounters Instructions to patient Intervention and counseling on cessation of tobacco use, 3-10 minutes Discussed medication and nicotine replacement for tobacco cessation Last Documented On 4 10:17AM ; [facility] Intervention and counseling on cessation of tobacco use, 3-10 minutes Discussed medication and nicotine replacement for tobacco cessation Last Documented On 4 10:50AM ; [facility] Intervention and counseling on cessation of tobacco use, 3-10 minutes Discussed medication and nicotine replacement for tobacco cessation Last Documented On 3 8:19PM ; [facility] Education and Decision Aids were provided [...] well Last Documented On 4 12:13PM ; [facility] Discussed nutritional needs teach healthy choices including fruits and vegetables Last Documented On 4 11:01AM ; [facility] Patient education about a pr oper diet Last Documented On 4 11:01AM ; [facility] Discussed concerns about exe rcise : promote physical activity Last Documented On 4 11:01AM ; [facility] Not requesting contraception Last Documented On 4 11:01AM ; [facility] *[facility] offered active and supp ortive listening, [...] visit Last Documented On 4 4:46PM ; [facility] Discussed nutritional needs teach healthy choices including fruits and vegetables Last Documented On 4 9:12AM ; [facility] Patient education about a pr oper diet Last Documented On 4 9:12AM ; [facility] Discussed concerns about exe rcise : promote physical activity Last Documented On 4 9:12AM ; [facility] *[facility] offered active and supp ortive listening, normalized emotions and feelings, and processed current stressors. ~*Discussed healthy coping skills and positive supports in patient's life. ~*Discussed proper sleep hygiene skills to implement to improve sleep. ~ Last Documented On 3 9:42PM ; [facility] Discussed nutritional needs teach healthy choices including fruits and vegetables Last Documented On 3 9:40AM ; [facility] Patient education about a pr oper diet Last Documented On 3 9:40AM ; [facility] Patient education about an a sthma action plan Last Documented On 3 10:31AM ; [facility] Discussed concerns about exe rcise : promote physical activity Last Documented On 3 9:40AM ; [facility] Not requesting contraception Last Documented On 3 9:40AM ; [facility] Discussed nutritional needs teach healthy choices including fruits and vegetables Last Documented On 3 9:08AM ; [facility] Patient education about a pr oper diet Last Documented On 3 9:08AM ; [facility] Discussed concerns about exe rcise : promote physical activity Last Documented On 3 9:08AM ; [facility] Discussed nutritional needs teach healthy choices including fruits and vegetables Last Documented On 3 9:57AM ; [facility] Patient education about a pr oper diet Last Documented On 3 9:57AM ; [facility] Discussed concerns about exe rcise : promote physical activity Last Documented On 3 9:57AM ; [facility] Discussed nutritional needs teach healthy choices including fruits and vegetables Last Documented On 3 9:00AM ; [facility] Patient education about a pr oper diet Last Documented On 3 9:00AM ; [facility] Discussed concerns about exe rcise : promote physical activity Last Documented On 3 9:00AM ; [facility] Not requesting contraception Last Documented On 3 9:00AM ; [facility] Discussed nutritional needs teach healthy choices including fruits and vegetables Last Documented On 3 10:07AM ; [facility] Patient education about a pr oper diet Last Documented On 3 10:07AM ; [facility] Discussed concerns about exe rcise : promote physical activity Last Documented On 3 10:07AM ; [facility] Not requesting contraception Last Documented On 3 10:07AM ; [facility] Discussed nutritional needs teach healthy choices including fruits and vegetables Last Documented On 3 10:02AM ; [facility] Patient education about a pr oper diet Last Documented On 3 10:02AM ; [facility] Discussed concerns about exe rcise : promote physical activity Last Documented On 3 10:02AM ; [facility] Discussed nutritional needs teach healthy choices including fruits and vegetables Last Documented On 3 2:56PM ; [facility] Patient education about a pr oper diet Last Documented On 3 2:56PM ; [facility] Discussed concerns about exe rcise : promote physical activity Last Documented On 3 2:56PM ; [facility] Discussed nutritional needs teach healthy choices including fruits and vegetables Last Documented On 3 2:11PM ; [facility] Patient education about a pr oper diet Last Documented On 3 2:11PM ; [facility] Discussed concerns about exe rcise : promote physical activity Last Documented On 3 2:11PM ; [facility] of [facility]. [...] free Last Documented On 3 11:35AM ; [facility] Discussed nutritional needs teach healthy choices including fruits and vegetables Last Documented On 3 10:53AM ; [facility] Patient education about a pr oper diet Last Documented On 3 10:53AM ; [facility] Discussed concerns about exe rcise : promote physical activity Last Documented On 3 10:53AM ; [facility] Work Phone: 1(229) 451-605803-06-2024 Instructions Includes: Instructions for all patient encounters Instructions to patient Intervention and counseling on cessation of tobacco use, 3-10 minutes Discussed medication and nicotine replacement for tobacco cessation Last Documented On 4 10:17AM ; [facility] Intervention and counseling on cessation of tobacco use, 3-10 minutes Discussed medication and nicotine replacement for tobacco cessation Last Documented On 4 10:50AM ; [facility] Intervention and counseling on cessation of tobacco use, 3-10 minutes Discussed medication and nicotine replacement for tobacco cessation Last Documented On 3 8:19PM ; [facility] Education and Decision Aids were provided [...] well Last Documented On 4 12:13PM ; [facility] Discussed nutritional needs teach healthy choices including fruits and vegetables Last Documented On 4 11:01AM ; [facility] Patient education about a pr oper diet Last Documented On 4 11:01AM ; [facility] Discussed concerns about exe rcise : promote physical activity Last Documented On 4 11:01AM ; [facility] Not requesting contraception Last Documented On 4 11:01AM ; [facility] *P offered active and supp ortive [...] visit Last Documented On 4 4:46PM ; [facility] Discussed nutritional needs teach healthy choices including fruits and vegetables Last Documented On 4 9:12AM ; [facility] Patient education about a pr oper diet Last Documented On 4 9:12AM ; [facility] Discussed concerns about exe rcise : promote physical activity Last Documented On 4 9:12AM ; [facility] *P offered active and supp ortive listening, normalized emotions and feelings, and processed current stressors. ~*Discussed healthy coping skills and positive supports in patient's life. ~*Discussed proper sleep hygiene skills to implement to improve sleep. ~ Last Documented On 3 9:42PM ; [facility] Discussed nutritional needs teach healthy choices including fruits and vegetables Last Documented On 3 9:40AM ; [facility] Patient education about a pr oper diet Last Documented On 3 9:40AM ; [facility] Patient education about an a sthma action plan Last Documented On 3 10:31AM ; [facility] Discussed concerns about exe rcise : promote physical activity Last Documented On 3 9:40AM ; [facility] Not requesting contraception Last Documented On 3 9:40AM ; [facility] Discussed nutritional needs teach healthy choices including fruits and vegetables Last Documented On 3 9:08AM ; [facility] Patient education about a pr oper diet Last Documented On 3 9:08AM ; [facility] Discussed concerns about exe rcise : promote physical activity Last Documented On 3 9:08AM ; [facility] Discussed nutritional needs teach healthy choices including fruits and vegetables Last Documented On 3 9:57AM ; [facility] Patient education about a pr oper diet Last Documented On 3 9:57AM ; [facility] Discussed concerns about exe rcise : promote physical activity Last Documented On 3 9:57AM ; [facility] Discussed nutritional needs teach healthy choices including fruits and vegetables Last Documented On 3 9:00AM ; [facility] Patient education about a pr oper diet Last Documented On 3 9:00AM ; [facility] Discussed concerns about exe rcise : promote physical activity Last Documented On 3 9:00AM ; [facility] Not requesting contraception Last Documented On 3 9:00AM ; [facility] Discussed nutritional needs teach healthy choices including fruits and vegetables Last Documented On 3 10:07AM ; [facility] Patient education about a pr oper diet Last Documented On 3 10:07AM ; [facility] Discussed concerns about exe rcise : promote physical activity Last Documented On 3 10:07AM ; [facility] Not requesting contraception Last Documented On 3 10:07AM ; [facility] Discussed nutritional needs teach healthy choices including fruits and vegetables Last Documented On 3 10:02AM ; [facility] Patient education about a pr oper diet Last Documented On 3 10:02AM ; [facility] Discussed concerns about exe rcise : promote physical activity Last Documented On 3 10:02AM ; [facility] Discussed nutritional needs teach healthy choices including fruits and vegetables Last Documented On 3 2:56PM ; [facility] Patient education about a pr oper diet Last Documented On 3 2:56PM ; [facility] Discussed concerns about exe rcise : promote physical activity Last Documented On 3 2:56PM ; [facility] Discussed nutritional needs teach healthy choices including fruits and vegetables Last Documented On 3 2:11PM ; [facility] Patient education about a pr oper diet Last Documented On 3 2:11PM ; [facility] Discussed concerns about exe rcise : promote physical activity Last Documented On 3 2:11PM ; [facility] BHP educated patient on HPWO model [...] free Last Documented On 3 11:35AM ; [facility] Discussed nutritional needs teach healthy choices including fruits and vegetables Last Documented On 3 10:53AM ; [facility] Patient education about a pr oper diet Last Documented On 3 10:53AM ; [facility] Discussed concerns about exe rcise : promote physical activity Last Documented On 3 10:53AM ; [facility] Work Phone: 1(888) 625-257602-21-2024 Progress note* Progress note Date Encounter Last Documented by 04/09/2023 Open Access - Established Last d ocumented on 04/09/2023; 10:53 AM, Juanita Lewis PA-C; [facility] Active Problems & Conditions - Asthma [...] her psych meds and also wanting to getnexplanon today... pt also states she has been [...] office for a mood check and Nexplanon controlplacement. Patient has had Nexplanon before and has [...] breathing was better when she was in [facility]/not vaping. She has started drining water more [...] Auto-injector inject into thigh at onset of allergicreaction, 30 days, 0 refills - Ferrous Sulfate [...] days, 5 refills - Vitamin D (Ergocalciferol) 93328 UNIT Oral Capsule 0 days, 0 refills [...] Allergies - cabbage Reaction: Anaphylaxis (Severe) - Ridley Reaction: Skin Rashes / Eruption of skin [...] BP-Sitting L126/87 mmHg BP Cuff SizeLarge Pulse Rate-Soybmbq73 bpm Temp-Oral97.1 F Swlgij33 in Chwlzd186 lbs 3.2 oz Body Mass Index46 kg/m2 Body Surface Area2.3 m2 Oxygen Pdocraxdzl87 % Vital Signs: - Systolic blood pressure [...] on 04/09/23 10:00a, Patient tolerated therapy well. Nosigns or symptoms of adverse reactions. Patient waited in clinic for 15 minutes after administration. Administered 3 mL of Lidocaine-EPINEPHrine 2 %-1:038774 on 04/09/23 10:00a, Patient tolerated therapy well. [...] w/epi), Nexplanon Implant In House Medications/Injection Codes: 57141 Therapeutic Prophy or Diag Injection, EACH EndCited [...] identified at the inner side of the arm8-10 cm above the medial epicondyle of the humerus and 3-4 cm posterior to the sulcus overlying thetriceps muscle. Two estrada were made with a sterile marker: the first located at the insertion site a nd the second a few centimeters proximal to [...] myself and the patient via palpation. The patienttolerated the procedure well. Nexplanon Implant Wound Care: [...] symptom. Consent form on file for procedure:Nexplanon. [facility]02-21-2024 Progress note* Progress note Date Encounter Last Documented by 04/09/2023 Established Patient Last docu mented on 04/14/2023; 4:48 PM, Kristin SALGADO; [facility] Active Problems & Conditions - J45.31 [...] 12. LEXY is 12. Negative SBIRT Subjective [facility] met with patient to complete screenings, discuss [...] nicotine replacement therapy noting nicotine patches has helpedher in the past. Patient denies any other [...] Auto-injector inject into thigh at onset of allergicreaction, 30 days, 0 refills - EQ Nicotine [...] Miscellaneous (not specified) use to check blood sugaronce per day, 30 days, 2 refills - OneTouch UltraSoft 2 Lancets Miscellaneous Miscellaneous (not specified) use to check blood sugaronce per day, 30 days, 0 refills - [...] days, 5 refills - Vitamin D (Ergocalciferol) 19317 UNIT Oral Capsule Capsule, conventional 0 days, [...] Allergies - cabbage Reaction: Anaphylaxis (Severe) - Ridley Reaction: Skin Rashes / Eruption of skin [...] anxiety, depression, and sleep issues. BHP and PAdiscussed previous medications she was on acknowledging that patient would like to restart the samemedications she was on previously. BHP and PA discussed nicotine replacement with patient noting pat mitesh would like nicotine patches as they worked [...] : Nearly every day, [LEXY-7] Not being ableto stop or control worrying? + 3 pt [...] Feeling tired or having little energy? + 1pt : Several days, [PHQ-9-5] Poor appetite or [...] pt : Not at all, [PHQ-9-9] Thoughts thatyou would be better off or hurting yourself? + 0 pt : Not at all, and LEXY If you checked off problems, how difficult is it for you to do your work, take care of things, or get along? Somewhat difficult. [facility]02-21-2024 Reason for referral (narrative)* Date Encounter Description Provider Reason for Referral 04/09/23 Established Patient Kristin Grande Referral To Mental Health Team 01/24/23 Established Patient Kristin Grande External referral/Resources provided - : Sleep hygiene. ~ 01/24/23 Medical Established Patient Juanita saunders PA-C Referral To Mental Health Team [facility] Work Phone: 1(186) 681-785202-21-2024 Instructions Includes: Instructions for all patient encounters Instructions to patient Intervention and counseling on cessation of tobacco use, 3-10 minutes Discussed medication and nicotine replacement for tobacco cessation Last Documented On 4 10:17AM ; [facility] Intervention and counseling on cessation of tobacco use, 3-10 minutes Discussed medication and nicotine replacement for tobacco cessation Last Documented On 4 10:50AM ; [facility] Intervention and counseling on cessation of tobacco use, 3-10 minutes Discussed medication and nicotine replacement for tobacco cessation Last Documented On 3 8:19PM ; [facility] Education and Decision Aids were provided during visit for: Discussed nutritional needs teach healthy choices including fruits and vegetables Last Documented On 4 9:12AM ; [facility] Patient education about a pr oper diet Last Documented On 4 9:12AM ; [facility] Discussed concerns about exe rcise : promote physical activity Last Documented On 4 9:12AM ; [facility] *[facility] offered active and supp ortive listening, normalized emotions and feelings, and processed current stressors. ~*Discussed healthy coping skills and positive supports in patient's life. ~*Discussed proper sleep hygiene skills to implement to improve sleep. ~ Last Documented On 3 9:42PM ; [facility] Discussed nutritional needs teach healthy choices including fruits and vegetables Last Documented On 3 9:40AM ; [facility] Patient education about a pr oper diet Last Documented On 3 9:40AM ; [facility] Patient education about an a sthma action plan Last Documented On 3 10:31AM ; [facility] Discussed concerns about exe rcise : promote physical activity Last Documented On 3 9:40AM ; [facility] Not requesting contraception Last Documented On 3 9:40AM ; [facility] Discussed nutritional needs teach healthy choices including fruits and vegetables Last Documented On 3 9:08AM ; [facility] Patient education about a pr oper diet Last Documented On 3 9:08AM ; [facility] Discussed concerns about exe rcise : promote physical activity Last Documented On 3 9:08AM ; [facility] Discussed nutritional needs teach healthy choices including fruits and vegetables Last Documented On 3 9:57AM ; [facility] Patient education about a pr oper diet Last Documented On 3 9:57AM ; [facility] Discussed concerns about exe rcise : promote physical activity Last Documented On 3 9:57AM ; [facility] Discussed nutritional needs teach healthy choices including fruits and vegetables Last Documented On 3 9:00AM ; [facility] Patient education about a pr oper diet Last Documented On 3 9:00AM ; [facility] Discussed concerns about exe rcise : promote physical activity Last Documented On 3 9:00AM ; [facility] Not requesting contraception Last Documented On 3 9:00AM ; [facility] Discussed nutritional needs teach healthy choices including fruits and vegetables Last Documented On 3 10:07AM ; [facility] Patient education about a pr oper diet Last Documented On 3 10:07AM ; [facility] Discussed concerns about exe rcise : promote physical activity Last Documented On 3 10:07AM ; [facility] Not requesting contraception Last Documented On 3 10:07AM ; [facility] Discussed nutritional needs teach healthy choices including fruits and vegetables Last Documented On 3 10:02AM ; [facility] Patient education about a pr oper diet Last Documented On 3 10:02AM ; [facility] Discussed concerns about exe rcise : promote physical activity Last Documented On 3 10:02AM ; [facility] Discussed nutritional needs teach healthy choices including fruits and vegetables Last Documented On 3 2:56PM ; [facility] Patient education about a pr oper diet Last Documented On 3 2:56PM ; [facility] Discussed concerns about exe rcise : promote physical activity Last Documented On 3 2:56PM ; [facility] Discussed nutritional needs teach healthy choices including fruits and vegetables Last Documented On 3 2:11PM ; [facility] Patient education about a pr oper diet Last Documented On 3 2:11PM ; [facility] Discussed concerns about exe rcise : promote physical activity Last Documented On 3 2:11PM ; [facility] of [facility]. BHP and PA discussed patient mood, noting that her screenings were 0, but patient has reported history of bipolar, PTSD, and anxiety and has been on medications for years. BHP and PA discussed patient decision to stop medications to initiate a , noting that patient is following with psychiatry and has good supports around her. [facility] praised patient for 6 years substance free Last Documented On 3 11:35AM ; [facility] Discussed nutritional needs teach healthy choices including fruits and vegetables Last Documented On 3 10:53AM ; [facility] Patient education about a pr oper diet Last Documented On 3 10:53AM ; [facility] Discussed concerns about exe rcise : promote physical activity Last Documented On 3 10:53AM ; [facility] Work Phone: 1(403) 309-590001-10-2024 History of Present illness Narrative* Rosalie Cox, WILDER-POT SANDER - 02/26/2023 12:15 PM EST Subjective: Patient [...] Medical History: Diagnosis Date Anxiety Bipolar disorder ([employer]) Depression Headache 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 Latex Rash Robaxin [Methocarbamol] Rash [...] Nose: Congestion and rhinorrhea present. Mouth/Throat: Lips: [place]. Mouth: Mucous membranes are moist. 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 Other orders - hpurqywocxpsrih-gdbwrccbl-XL 2-30-10 mg/5 mL syrup; Take 10 mL by mouth 4 (four) times a day as needed for allergies, cough or congestion. Orders Placed or Reconciled This Encounter Medications amoxicillin-pot clavulanate (AUGMENTIN) 875-125 mg per tablet Sig: Take 1 tablet by mouth in the morning and 1 tablet before bedtime. Do all this for 7 days. Dispense: 14 tablet Refill: 0 cppjcfipsvsstth-bgtqtdpar-HC 2-30-10 mg/5 mL syrup Sig: Take 10 [...] Emergency Department for further care immediately. Rosalie Cox APRN-POT SANDER 02/26/23 1318 documented [facility]Gre[facility] HospitalCivicScience[facility] Instructions* Patient Instructions* CONNOR Vazquez - 02/26/2023 [...] Infections (Otitis Media) in Adults Discharge Instructions (Maldivian) documented in [facility]Br[facility] HospitalBIBA Apparels12-[facility]23 History general Narrative - Reported Includes: Medical History in patient's chart Description Last Updated No Safety Measures 01/26/2023 Last Documented On 3 9:45PM ; [facility] Not planning to have a baby in the next 12 months 10/09/2022 Last Documented On 3 2:42PM ; [facility] Recent immunization for flu 05/27/2022 Last Documented On 3 4:00PM ; [facility] No previous suicide attempt 04/29/2022 Last Documented On 3 11:36AM ; [facility] History of asthma 04/29/2022 Last Documented On 3 1:03PM ; [facility] History of psychiatric disorders 023 Last Documented On 3 1:03PM ; [facility] History of systemic hypertension 023 Last Documented On 3 1:03PM ; [facility] No previous hospitalizations 04/29/2022 Last Documented On 3 1:03PM ; [facility] Work Phone: [phone]) 854-815512-10-2023 History general Narrative - Reported Includes: Medical History in patient's chart Description Last Updated No Safety Measures 01/26/2023 Last Documented On 3 9:45PM ; [facility] Not planning to have a baby in the next 12 months 10/09/2022 Last Documented On 3 2:42PM ; [facility] Recent immunization for flu 05/27/2022 Last Documented On 3 4:00PM ; [facility] No previous suicide attempt 04/29/2022 Last Documented On 3 11:36AM ; [facility] History of asthma 04/29/2022 Last Documented On 3 1:03PM ; [facility] History of psychiatric disorders 023 Last Documented On 3 1:03PM ; [facility] History of systemic hypertension 023 Last Documented On 3 1:03PM ; [facility] No previous hospitalizations 04/29/2022 Last Documented On 3 1:03PM ; [facility] Work Phone: 1(480) 585-554312-10-2023 History general Narrative - Reported Includes: Medical History in patient's chart Description Last Updated No Safety Measures 01/26/2023 Last Documented On 3 9:45PM ; [facility] Not planning to have a baby in the next 12 months 10/09/2022 Last Documented On 3 2:42PM ; [facility] Recent immunization for flu 05/27/2022 Last Documented On 3 4:00PM ; [facility] No previous suicide attempt 04/29/2022 Last Documented On 3 11:36AM ; [facility] History of asthma 04/29/2022 Last Documented On 3 1:03PM ; [facility] History of psychiatric disorders 023 Last Documented On 3 1:03PM ; [facility] History of systemic hypertension 023 Last Documented On 3 1:03PM ; [facility] No previous hospitalizations 04/29/2022 Last Documented On 3 1:03PM ; [facility] Work Phone: [phone]) 889-923612-10-2023 History general Narrative - Reported Includes: Medical History in patient's chart Description Last Updated No Safety Measures 01/26/2023 Last Documented On 3 9:45PM ; [facility] Not planning to have a baby in the next 12 months 10/09/2022 Last Documented On 3 2:42PM ; [facility] Recent immunization for flu 05/27/2022 Last Documented On 3 4:00PM ; [facility] No previous suicide attempt 04/29/2022 Last Documented On 3 11:36AM ; [facility] History of asthma 04/29/2022 Last Documented On 3 1:03PM ; [facility] History of psychiatric disorders 023 Last Documented On 3 1:03PM ; [facility] History of systemic hypertension 023 Last Documented On 3 1:03PM ; [facility] No previous hospitalizations 04/29/2022 Last Documented On 3 1:03PM ; [facility] Work Phone: [phone]) 483-830112-10-2023 History general Narrative - Reported Includes: Medical History in patient's chart Description Last Updated No Safety Measures 01/26/2023 Last Documented On 3 9:45PM ; [facility] Not planning to have a baby in the next 12 months 10/09/2022 Last Documented On 3 2:42PM ; [facility] Recent immunization for flu 05/27/2022 Last Documented On 3 4:00PM ; [facility] No previous suicide attempt 04/29/2022 Last Documented On 3 11:36AM ; [facility] History of asthma 04/29/2022 Last Documented On 3 1:03PM ; [facility] History of psychiatric disorders 023 Last Documented On 3 1:03PM ; [facility] History of systemic hypertension 023 Last Documented On 3 1:03PM ; [facility] No previous hospitalizations 04/29/2022 Last Documented On 3 1:03PM ; [facility] Work Phone: [phone]) 610-824312-10-2023 Instructions Includes: Instructions for all patient encounters Instructions to patient Intervention and counseling on cessation of tobacco use, 3-10 minutes Discussed medication and nicotine replacement for tobacco cessation Last Documented On 3 8:19PM ; [facility] Education and Decision Aids were provided during visit for: *P offered active and supp ortive listening, normalized emotions and feelings, and processed current stressors. ~*Discussed healthy coping skills and positive supports in patient's life. ~*Discussed proper sleep hygiene skills to implement to improve sleep. ~ Last Documented On 3 9:42PM ; [facility] Discussed nutritional needs teach healthy choices including fruits and vegetables Last Documented On 3 9:40AM ; [facility] Patient education about a pr oper diet Last Documented On 3 9:40AM ; [facility] Patient education about an a sthma action plan Last Documented On 3 10:31AM ; [facility] Discussed concerns about exe rcise : promote physical activity Last Documented On 3 9:40AM ; [facility] Not requesting contraception Last Documented On 3 9:40AM ; [facility] Discussed nutritional needs teach healthy choices including fruits and vegetables Last Documented On 3 9:08AM ; [facility] Patient education about a pr oper diet Last Documented On 3 9:08AM ; [facility] Discussed concerns about exe rcise : promote physical activity Last Documented On 3 9:08AM ; [facility] Discussed nutritional needs teach healthy choices including fruits and vegetables Last Documented On 3 9:57AM ; [facility] Patient education about a pr oper diet Last Documented On 3 9:57AM ; [facility] Discussed concerns about exe rcise : promote physical activity Last Documented On 3 9:57AM ; [facility] Discussed nutritional needs teach healthy choices including fruits and vegetables Last Documented On 3 9:00AM ; [facility] Patient education about a pr oper diet Last Documented On 3 9:00AM ; [facility] Discussed concerns about exe rcise : promote physical activity Last Documented On 3 9:00AM ; [facility] Not requesting contraception Last Documented On 3 9:00AM ; [facility] Discussed nutritional needs teach healthy choices including fruits and vegetables Last Documented On 3 10:07AM ; [facility] Patient education about a pr oper diet Last Documented On 3 10:07AM ; [facility] Discussed concerns about exe rcise : promote physical activity Last Documented On 3 10:07AM ; [facility] Not requesting contraception Last Documented On 3 10:07AM ; [facility] Discussed nutritional needs teach healthy choices including fruits and vegetables Last Documented On 3 10:02AM ; [facility] Patient education about a pr oper diet Last Documented On 3 10:02AM ; [facility] Discussed concerns about exe rcise : promote physical activity Last Documented On 3 10:02AM ; [facility] Discussed nutritional needs teach healthy choices including fruits and vegetables Last Documented On 3 2:56PM ; [facility] Patient education about a pr oper diet Last Documented On 3 2:56PM ; [facility] Discussed concerns about exe rcise : promote physical activity Last Documented On 3 2:56PM ; [facility] Discussed nutritional needs teach healthy choices including fruits and vegetables Last Documented On 3 2:11PM ; [facility] Patient education about a pr oper diet Last Documented On 3 2:11PM ; [facility] Discussed concerns about exe rcise : promote physical activity Last Documented On 3 2:11PM ; [facility] BHP educated patient on HPWO model [...] free Last Documented On 3 11:35AM ; [facility] Discussed nutritional needs teach healthy choices including fruits and vegetables Last Documented On 3 10:53AM ; [facility] Patient education about a pr oper diet Last Documented On 3 10:53AM ; [facility] Discussed concerns about exe rcise : promote physical activity Last Documented On 3 10:53AM ; [facility] Work Phone: [phone]) 219-262312-08-2023 Evaluation note Includes: Assessments for all patient encounters Findings Encounter Date Bipolar I disorder BH Established Patient with Dixon Moran [employer] 01/24/2023 Last Documented On 3 9:45PM ; [facility] [G47.30 - Sleep apnea, unspe cified] organic sleep apnea Medical Established Patient with Juanita Hattendorf PA-C 01/24/2023 Last Documented On 3 10:48AM ; [facility] [Z68.42 - Body mass index [B ND] 45.0-49.9, adult] assessment of body mass index was 46.3 kg/m2 Medical Established Patient with Juanita Hattendorf PA-C 01/24/2023 Last Documented On 3 10:48AM ; [facility] Classic migraine with aura w ith intractable migraine with status migrainosus Medical Established Patient with Juanita Hattendorf PA-C 01/24/2023 Last Documented On 3 10:48AM ; [facility] Mild persistent asthma with exacerbation Medical Established Patient with Juanita Hattendorf PA-C 01/24/2023 Last Documented On 3 10:48AM ; [facility] [Z02.1 - Encounter for pre-e mployment examination] routine pre-employment screening examination Open Access - Established with Juanita Mandydorf PA-C 11/29/2022 Last Documented On 3 4:45PM ; [facility] [Z11.1 - Encounter for miguel angel marcus for respiratory tuberculosis] visit for: screening for pulmonary tuberculosis Open Access - Established with Juanita Mandydorf PA-C 11/29/2022 Last Documented On 3 4:45PM ; [facility] [Z68.42 - Body mass index [B ND] 45.0-49.9, adult] assessment of body mass index Open Access - Established with Juanita Mandydorf PA-C 11/29/2022 Last Documented On 3 4:45PM ; [facility] Encounter for Immunization Open Access - Established with Juanita Barbaratendorf PA-C 11/29/2022 Last Documented On 3 4:45PM ; [facility] Prediabetes Open Access - Established with Harjinder Lewis PA-C 11/29/2022 Last Documented On 3 4:45PM ; [facility] [Z68.42 - Body mass index [B ND] 45.0-49.9, adult] assessment of body mass index Open Access - Established with Juanita Lewis PA-C 11/05/2022 Last Documented On 3 12:38PM ; [facility] Acute serous otitis media of left ear Open Access - Established with Juanita Lewis PA-C 11/05/2022 Last Documented On 3 12:38PM ; [facility] [J02.9 - Acute pharyngitis, unspecified] acute pharyngitis Open Access - Established with Kb Pelaez CNP 10/17/2022 Last Documented On 3 12:51PM ; [facility] [J11.1 - Influenza due to un identified influenza virus with other respiratory manifestations] influenza with URI Open Access - Established with Kb Pelaez CNP 10/17/2022 Last Documented On 3 12:51PM ; [facility] [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) Open Access - Established with Kb Pelaez CNP 10/17/2022 Last Documented On 3 12:51PM ; [facility] [R35.0 - Frequency of mictur ition] urinary frequency Open Access - Established with Kb Pelaez CNP 10/17/2022 Last Documented On 3 12:51PM ; [facility] [Z68.42 - Body mass index [B ND] 45.0-49.9, adult] assessment of body mass index was 47.2 kg/m2 Open Access - Established with Kb Pelaez CNP 10/17/2022 Last Documented On 3 12:51PM ; [facility] Intervention and counseling on cessation of tobacco use, 3-10 minutes Discussed medication and nicotine replacement for tobacco cessation Open Access - Established with Kb Pelaez CNP 10/17/2022 Last Documented On 3 12:51PM ; [facility] Nicotine dependence Open Access - Establ ished with Kb Pelaez CNP 10/17/2022 Last Documented On 3 12:51PM ; [facility] Venipuncture was performed Open Access - Established with Kb Pelaez CNP 10/17/2022 Last Documented On 3 12:51PM ; [facility] [F17.200 - Nicotine dependen ce, unspecified, uncomplicated] nicotine dependence uncomplicated Medical Established Patient with Juanita Hattendorf PA-C 10/09/2022 Last Documented On 3 2:42PM ; [facility] [Z68.42 - Body mass index [B ND] 45.0-49.9, adult] assessment of body mass index Medical Established Patient with Juanita Hattendorf PA-C 10/09/2022 Last Documented On 3 2:42PM ; [facility] Classic migraine (with aura) with intractable migraine with status migrainosus Medical Established Patient with Juanita Hattendorf PA-C 10/09/2022 Last Documented On 3 2:42PM ; [facility] Iron deficiency anemia Medical Establish ed Patient with Juanita Hattendorf PA-C 10/09/2022 Last Documented On 3 2:42PM ; [facility] Prediabetes Medical Established Patient with Juanita Hattendorf PA-C 10/09/2022 Last Documented On 3 2:42PM ; [facility] [R73.03 - Prediabetes] prediabetes Open Access - Established with Juanita Hattendorf PA-C 09/18/2022 Last Documented On 3 2:31PM ; [facility] [Z68.42 - Body mass index [B ND] 45.0-49.9, adult] assessment of body mass index Open Access - Established with Juanita Hattendorf PA-C 09/18/2022 Last Documented On 3 2:31PM ; [facility] Classic migraine (with aura) with intractable migraine with status migrainosus Open Access - Established with Juanita Hattendorf PA-C 09/18/2022 Last Documented On 3 2:31PM ; [facility] [S80.12XD - Contusion of lef t lower leg, subsequent encounter] contusion with intact skin surface of left anterior lower leg Medical Established Patient with Juanita Galvanchip PA-C 05/27/2022 Last Documented On 3 4:00PM ; [facility] [Z68.42 - Body mass index [B ND] 45.0-49.9, adult] assessment of body mass index Medical Established Patient with Juanita Sequeiranadeemdorf PA-C 05/27/2022 Last Documented On 3 4:00PM ; [facility] Pain in lower leg Medical Established Patient wi Juanita Barbaranadeemchip PA-C 05/27/2022 Last Documented On 3 4:00PM ; [facility] Iron deficiency anemia Chart Update with Juanita Mandychip PA-C 05/21/2022 Last Documented On 3 4:12PM ; [facility] [E55.9 - Vitamin D deficienc y, unspecified] vitamin D deficiency Open Access - Established with Juanita Joshua PA-C 05/17/2022 Last Documented On 3 3:44PM ; [facility] [Z68.42 - Body mass index [B ND] 45.0-49.9, adult] assessment of body mass index Open Access - Established with Juanita Lewis PA-C 05/17/2022 Last Documented On 3 3:44PM ; [facility] Iron deficiency anemia Open Access - Est ablished with Juanita Lewis PA-C 05/17/2022 Last Documented On 3 3:44PM ; [facility] Organic sleep apnea Open Access - Established wi Juanita Lewis PA-C 05/17/2022 Last Documented On 3 3:44PM ; [facility] Primary snoring Open Access - Established with Harjinder Lewis PA-C 05/17/2022 Last Documented On 3 3:44PM ; [facility] Bipolar I disorder BH Established Patient with Chavez SMITH 04/29/2022 Last Documented On 3 11:36AM ; [facility] Nicotine dependence Established Patient with Odalys SMITH 04/29/2022 Last Documented On 3 11:36AM ; [facility] [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) Open Access New Patient with Juanita Lewis PA-C 04/29/2022 Last Documented On 3 1:03PM ; [facility] [Z00.01 - Encounter for gene [facility] adult medical examination with abnormal findings] routine history and physical Open Access New Patient with Juanita Guanrf PA-C 04/29/2022 Last Documented On 3 1:03PM ; [facility] [Z68.42 - Body mass index [B ND] 45.0-49.9, adult] assessment of body mass index Open Access New Patient with Juanita Lewis PA-C 04/29/2022 Last Documented On 3 1:03PM ; [facility] Diabetes Risk Test Score was five score 04/29/2022 Open Access New Patient with Juanita Guanrf PA-C 04/29/2022 Last Documented On 3 1:03PM ; [facility] Recurrent pharyngitis streptococcus Open Access New Patient with Juanita Guanrf PA-C 04/29/2022 Last Documented On 3 1:03PM ; [facility] Screening for Hep C Open Access New Patient with Juanita Guanrf PA-C 04/29/2022 Last Documented On 3 1:03PM ; [facility] Screening for HIV Open Access New Patient with Harjinder Guanrf PA-C 04/29/2022 Last Documented On 3 1:03PM ; [facility] Work Phone: 1(179) 196-443512-08-2023 Progress note* Progress note Date Encounter Last Documented by 01/24/2023 Established Patient Last docu mented on 01/26/2023; 9:45 PM, Kristin SALGADO; [facility] Active Problems & Conditions - J45.31 [...] Racing thoughts - No depression - No socialisolation - - Progress: PHQ is 8. LEXY is 0 Subjective [facility] met with patient to review screenings, discuss mood, and medications today. Patient has concerns related to her sleep issues noting she would like to be referred for a sleep study to determineif she has sleep apnea. Patient continues to have migraines as well, since she ran out of Topamax and never refilled her script. Patient would like to restart Topamax and she felt it was helpful. Patient is also interested in discussing sleep hygiene with [facility] today. Patient denies any other concerns [...] Auto-injector inject into thigh at onset of allergicreaction, 30 days, 0 refills - Ferrous Sulfate [...] Miscellaneous (not specified) use to check blood sugaronce per day, 30 days, 0 refills - [...] days, 2 refills - Vitamin D (Ergocalciferol) 63156 UNIT Oral Capsule Capsule, conventional 0 days, [...] active, sexual orientation Straight (not lesbian or ferrraa), gender identity Female, and control is being practiced. Allergies - cabbage Reaction: Anaphylaxis (Severe) - Ridley Reaction: Skin Rashes / Eruption of skin [...] to restart Topamax for migraine prevention. Patient isagreeable. . Counseling/Education - No not wishing to stop using electronic cigarettes/vaping *[facility] offered active and supportive listening, normalized emotions [...] Reminders - Assess Tobacco Use satisfied 01/26/2023. [facility]12-08-2023 Progress note* Progress note Date Encounter Last Documented by 01/24/2023 Medical Established Patient Last documented on 01/24/2023; 10:48 AM, Juanita Lewis PA-C; [facility] Active Problems & Conditions - Asthma [...] urgent care clinic. Referred by emergency room [facility]. No prior encounters. - [...] the past few weeks. She presented to [place] [facility] on 01/22/23 and was diagnosed with [...] a new copy of a sleep study order.She does not feel well-rested Current Medication - [...] Auto-injector inject into thigh at onset of allergicreaction, 30 days, 0 refills - Ferrous Sulfate [...] days, 2 refills - Vitamin D (Ergocalciferol) 95172 UNIT Oral Capsule 0 days, 0 refills [...] Allergies - cabbage Reaction: Anaphylaxis (Severe) - Ridley Reaction: Skin Rashes / Eruption of skin [...] BP-Sitting R126/91 mmHg BP Cuff SizeLarge Pulse Rate-Ygdodsq97 bpm Pulse RhythmRegular Temp-Qkmtnkte71.1 F Mzslam94 in Dlhvfs069 lbs Body Mass Index46.3 kg/m2 Body Surface Area2.3 m2 Oxygen Cxazkdsepf77 % O2 DeviceNone (Room Air) XoS488 % Vital Signs: - Systolic blood pressure [...] done at work/school/work? (3 Pts) Some of theTime, During the past 4 weeks, how often have you had shortness of breath? (1 Pt) More than once a day, During the past for 4 weeks, asthma symptoms woke me up at night or earlier than (1 Pt) 4 or more nights a week, During the past 4 weeks, have used rescue inhaler or nebulizer medication (1 Pt) 3or more times per day, and Asthma control [...] migraine, repeat in 2 hours if needed. max2/day, 30 days, 2 refills EndCited StartCited- Mild [...] Diagn Tests: Other Diagnostic Test: Instructions: polysomnography 17952 EndCited restart topamax start symbicort inhaler, albuterol [...] or on edge? + 0 pt : Notat all, [LEXY-7] Not being able to stop [...] + 3 pt : Nearly every day, [PHQ-9-4]Feeling tired or having little energy? + 3 [...] pt : Not at all. [facility]12-08-2023 Reason for referral (narrative)* Date Encounter Description Provider Reason for Referral 01/24/23 Established Patient Kristin Grande External referral/Resources provided - : Sleep hygiene. ~ 01/24/23 Medical Established Patient Juanita saunders PA-C Referral To Mental Health Team [facility] Work Phone: 1(323) 127-545012-08-2023 Reason for referral (narrative)* Date Encounter Description Provider Reason for Referral 04/09/23 Established Patient Kristin Grande Referral To Mental Health Team 01/24/23 Established Patient Kristin Grande External referral/Resources provided - : Sleep hygiene. ~ 01/24/23 Medical Established Patient Juanita saunders PA-C Referral To Mental Health Team [facility] Work Phone: 1(559) 740-781510-13-2023 Progress note* Progress note Date Encounter Last Documented by 11/29/2022 Open Access - Established Last d ocumented on 11/29/2022; 4:45 PM, Juanita Lewis PA-C; [facility] Active Problems & Conditions - Bipolar [...] Auto-injector inject into thigh at onset of allergicreaction, 30 days, 0 refills - Ferrous Sulfate [...] days, 2 refills - Vitamin D (Ergocalciferol) 17546 UNIT Oral Capsule 0 days, 0 refills [...] Allergies - cabbage Reaction: Anaphylaxis (Severe) - Ridley Reaction: Skin Rashes / Eruption of skin [...] Findings - Vitals taken 11/29/2022 09:06 am BP-Edwdlqe767/66 mmHg Pulse Rate-Laajgtu47 bpm Temp-Oral97.4 F Rdruyh46 in Vsppij466 lbs 3.2 oz Body Mass Index46 kg/m2 Body Surface Area2.3 m2 Oxygen Xjwxpkadxi85 % Vital Signs: - Systolic blood pressure [...] Skin Test Product In House Medications/Injection Codes: 51646 Therapeutic Prophy or Diag Injection, EACH EndCited will clear pt once titers are resulted follow up as needed Health Reminders - Assess BMI satisfied 11/29/2022. - Assess Tobacco Use satisfied 11/29/2022. - Follow Up Plan BMI Management satisfied 11/29/2022. [facility]09-19-2023 Progress note* Progress note Date Encounter Last Documented by 11/05/2022 Open Access - Established Last d ocumented on 11/05/2022; 12:38 PM, Juanita Lewis PA-C; [facility] Active Problems & Conditions - Bipolar [...] nausea without vomiting, sore throat, ear pressure, nasalcongestion, and nasal discharge. Afebrile today. She has [...] Auto-injector inject into thigh at onset of allergicreaction, 30 days, 0 refills - Ferrous Sulfate [...] days, 2 refills - Vitamin D (Ergocalciferol) 77643 UNIT Oral Capsule 0 days, 0 refills [...] Allergies - cabbage Reaction: Anaphylaxis (Severe) - Ridley Reaction: Skin Rashes / Eruption of skin [...] Findings - Vitals taken 11/05/2022 09:55 am BP-Lzwihdb778/62 mmHg Pulse Rate-Hntsixu48 bpm Temp-Oral96.9 F Fgnkau90 in Uiaaoh079 lbs 12.8 oz Body Mass Index46.5 kg/m2 Body Surface Area2.3 m2 Oxygen Enkvcohpur20 % Vital Signs: - Systolic blood pressure [...] Up Plan BMI Management satisfied 11/05/2022. [facility]09-19-2023 Instructions Includes: Instructions for all patient encounters Instructions to patient Intervention and counseling on cessation of tobacco use, 3-10 minutes Discussed medication and nicotine replacement for tobacco cessation Last Documented On 3 8:19PM ; [facility] Education and Decision Aids were provided during visit for: Discussed nutritional needs teach healthy choices including fruits and vegetables Last Documented On 3 9:57AM ; [facility] Patient education about a pr oper diet Last Documented On 3 9:57AM ; [facility] Discussed concerns about exe rcise : promote physical activity Last Documented On 3 9:57AM ; [facility] Discussed nutritional needs teach healthy choices including fruits and vegetables Last Documented On 3 9:00AM ; [facility] Patient education about a pr oper diet Last Documented On 3 9:00AM ; [facility] Discussed concerns about exe rcise : promote physical activity Last Documented On 3 9:00AM ; [facility] Not requesting contraception Last Documented On 3 9:00AM ; [facility] Discussed nutritional needs teach healthy choices including fruits and vegetables Last Documented On 3 10:07AM ; [facility] Patient education about a pr oper diet Last Documented On 3 10:07AM ; [facility] Discussed concerns about exe rcise : promote physical activity Last Documented On 3 10:07AM ; [facility] Not requesting contraception Last Documented On 3 10:07AM ; [facility] Discussed nutritional needs teach healthy choices including fruits and vegetables Last Documented On 3 10:02AM ; [facility] Patient education about a pr oper diet Last Documented On 3 10:02AM ; [facility] Discussed concerns about exe rcise : promote physical activity Last Documented On 3 10:02AM ; [facility] Discussed nutritional needs teach healthy choices including fruits and vegetables Last Documented On 3 2:56PM ; [facility] Patient education about a pr oper diet Last Documented On 3 2:56PM ; [facility] Discussed concerns about exe rcise : promote physical activity Last Documented On 3 2:56PM ; [facility] Discussed nutritional needs teach healthy choices including fruits and vegetables Last Documented On 3 2:11PM ; [facility] Patient education about a pr oper diet Last Documented On 3 2:11PM ; [facility] Discussed concerns about exe rcise : promote physical activity Last Documented On 3 2:11PM ; [facility]. [...] free Last Documented On 3 11:35AM ; [facility] Discussed nutritional needs teach healthy choices including fruits and vegetables Last Documented On 3 10:53AM ; [facility] Patient education about a pr oper diet Last Documented On 3 10:53AM ; [facility] Discussed concerns about exe rcise : promote physical activity Last Documented On 3 10:53AM ; [facility] Work Phone: 1(799) 393-840909-01-2023 Instructions Includes: Instructions for all patient encounters Instructions to patient Intervention and counseling on cessation of tobacco use, 3-10 minutes Discussed medication and nicotine replacement for tobacco cessation Last Documented On 3 8:19PM ; [facility] Education and Decision Aids were provided during visit for: Discussed nutritional needs teach healthy choices including fruits and vegetables Last Documented On 3 9:00AM ; [facility] Patient education about a pr oper diet Last Documented On 3 9:00AM ; [facility] Discussed concerns about exe rcise : promote physical activity Last Documented On 3 9:00AM ; [facility] Not requesting contraception Last Documented On 3 9:00AM ; [facility] Discussed nutritional needs teach healthy choices including fruits and vegetables Last Documented On 3 10:07AM ; [facility] Patient education about a pr oper diet Last Documented On 3 10:07AM ; [facility] Discussed concerns about exe rcise : promote physical activity Last Documented On 3 10:07AM ; [facility] Not requesting contraception Last Documented On 3 10:07AM ; [facility] Discussed nutritional needs teach healthy choices including fruits and vegetables Last Documented On 3 10:02AM ; [facility] Patient education about a pr oper diet Last Documented On 3 10:02AM ; [facility] Discussed concerns about exe rcise : promote physical activity Last Documented On 3 10:02AM ; [facility] Discussed nutritional needs teach healthy choices including fruits and vegetables Last Documented On 3 2:56PM ; [facility] Patient education about a pr oper diet Last Documented On 3 2:56PM ; [facility] Discussed concerns about exe rcise : promote physical activity Last Documented On 3 2:56PM ; [facility] Discussed nutritional needs teach healthy choices including fruits and vegetables Last Documented On 3 2:11PM ; [facility] Patient education about a pr oper diet Last Documented On 3 2:11PM ; [facility] Discussed concerns about exe rcise : promote physical activity Last Documented On 3 2:11PM ; [facility] model of [facility]. [...] free Last Documented On 3 11:35AM ; [facility] Discussed nutritional needs teach healthy choices including fruits and vegetables Last Documented On 3 10:53AM ; [facility] Patient education about a pr oper diet Last Documented On 3 10:53AM ; [facility] Discussed concerns about exe rcise : promote physical activity Last Documented On 3 10:53AM ; [facility] Work Phone: 1([phone]) 480-431808-31-2023 Evaluation note Includes: Assessments for all patient encounters Findings Encounter Date [J11.1 - Influenza due to un identified influenza virus with other respiratory manifestations] influenza with URI Open Access - Established with Kb Pelaez CNP 10/17/2022 Last Documented On 3 8:20PM ; [facility] [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) Open Access - Established with Kb Pelaez CNP 10/17/2022 Last Documented On 3 8:20PM ; [facility] [R35.0 - Frequency of mictur ition] urinary frequency Open Access - Established with Kb Pelaez CNP 10/17/2022 Last Documented On 3 8:20PM ; [facility] [Z68.42 - Body mass index [B ND] 45.0-49.9, adult] assessment of body mass index was 47.2 kg/m2 Open Access - Established with Kb Pelaez CNP 10/17/2022 Last Documented On 3 8:20PM ; [facility] Intervention and counseling on cessation of tobacco use, 3-10 minutes Discussed medication and nicotine replacement for tobacco cessation Open Access - Established with Kb Pelaez CNP 10/17/2022 Last Documented On 3 8:20PM ; [facility] Nicotine dependence Open Access - Established wi th Kb Pelaez CNP 10/17/2022 Last Documented On 3 8:20PM ; [facility] Venipuncture was performed Open Access - Established with Kb Pelaez CNP 10/17/2022 Last Documented On 3 8:20PM ; [facility] [F17.200 - Nicotine dependen ce, unspecified, uncomplicated] nicotine dependence uncomplicated Medical Established Patient with Juanita Lewis PA-C 10/09/2022 Last Documented On 3 2:42PM ; [facility] [Z68.42 - Body mass index [B ND] 45.0-49.9, adult] assessment of body mass index Medical Established Patient with Juanita Hatnadeemdorf PA-C 10/09/2022 Last Documented On 3 2:42PM ; [facility] Classic migraine (with aura) with intractable migraine with status migrainosus Medical Established Patient with Juanita Hattendorf PA-C 10/09/2022 Last Documented On 3 2:42PM ; [facility] Iron deficiency anemia Medical Establish ed Patient with Juanita Hattendorf PA-C 10/09/2022 Last Documented On 3 2:42PM ; [facility] Prediabetes Medical Established Patient with Juanita Hattendorf PA-C 10/09/2022 Last Documented On 3 2:42PM ; [facility] [R73.03 - Prediabetes] prediabetes Open Access - Established with Juanita Hattendorf PA-C 09/18/2022 Last Documented On 3 2:31PM ; [facility] [Z68.42 - Body mass index [B ND] 45.0-49.9, adult] assessment of body mass index Open Access - Established with Juanita Hattendorf PA-C 09/18/2022 Last Documented On 3 2:31PM ; [facility] Classic migraine (with aura) with intractable migraine with status migrainosus Open Access - Established with Juanita Hattendorf PA-C 09/18/2022 Last Documented On 3 2:31PM ; [facility] [S80.12XD - Contusion of lef t lower leg, subsequent encounter] contusion with intact skin surface of left anterior lower leg Medical Established Patient with Juanita Hattendorf PA-C 05/27/2022 Last Documented On 3 4:00PM ; [facility] [Z68.42 - Body mass index [B ND] 45.0-49.9, adult] assessment of body mass index Medical Established Patient with Juanita Hattendorf PA-C 05/27/2022 Last Documented On 3 4:00PM ; [facility] Pain in lower leg Medical Established Patient wi th Juanita Sequeirajoann PA-C 05/27/2022 Last Documented On 3 4:00PM ; [facility] Iron deficiency anemia Chart Update with Juanita Mandychip PA-C 05/21/2022 Last Documented On 3 4:12PM ; [facility] [E55.9 - Vitamin D deficienc y, unspecified] vitamin D deficiency Open Access - Established with Juanita Lewis PA-C 05/17/2022 Last Documented On 3 3:44PM ; [facility] [Z68.42 - Body mass index [B ND] 45.0-49.9, adult] assessment of body mass index Open Access - Established with Juanita Lewis PA-C 05/17/2022 Last Documented On 3 3:44PM ; [facility] Iron deficiency anemia Open Access - Est ablished with Juanita Lewis PA-C 05/17/2022 Last Documented On 3 3:44PM ; [facility] Organic sleep apnea Open Access - Established wi th Juanita Lewis PA-C 05/17/2022 Last Documented On 3 3:44PM ; [facility] Primary snoring Open Access - Established with Harjinder barlow Joshua PA-C 05/17/2022 Last Documented On 3 3:44PM ; [facility] Bipolar I disorder Established Patient with Chavez SMITH 04/29/2022 Last Documented On 3 11:36AM ; [facility] Nicotine dependence Established Patient with Odalys SMITH 04/29/2022 Last Documented On 3 11:36AM ; [facility] [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) Open Access New Patient with Juanita Glavanchip PA-C 04/29/2022 Last Documented On 3 1:03PM ; [facility] [Z00.01 - Encounter for gene [facility] adult medical examination with abnormal findings] routine history and physical Open Access New Patient with Juanita Lewis PA-C 04/29/2022 Last Documented On 3 1:03PM ; [facility] [Z68.42 - Body mass index [B ND] 45.0-49.9, adult] assessment of body mass index Open Access New Patient with Juanita Lewis PA-C 04/29/2022 Last Documented On 3 1:03PM ; [facility] Diabetes Risk Test Score was five score 04/29/2022 Open Access New Patient with Juanita Lewis PA-C 04/29/2022 Last Documented On 3 1:03PM ; [facility] Recurrent pharyngitis streptococcus Open Access New Patient with Juanita Lewis PA-C 04/29/2022 Last Documented On 3 1:03PM ; [facility] Screening for Hep C Open Access New Patient with Juanita Lewis PA-C 04/29/2022 Last Documented On 3 1:03PM ; [facility] Screening for HIV Open Access New Patient with Harjinder Lewis PA-C 04/29/2022 Last Documented On 3 1:03PM ; [facility] Work Phone: [phone]) 511-952908-31-2023 Evaluation note Includes: Assessments for all patient encounters Findings Encounter Date [J02.9 - Acute pharyngitis, unspecified] acute pharyngitis Open Access - Established with Kb Pelaez CNP 10/17/2022 Last Documented On 3 12:51PM ; [facility] [J11.1 - Influenza due to un identified influenza virus with other respiratory manifestations] influenza with URI Open Access - Established with Kb Pelaez CNP 10/17/2022 Last Documented On 3 12:51PM ; [facility] [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) Open Access - Established with Kb Pelaez CNP 10/17/2022 Last Documented On 3 12:51PM ; [facility] [R35.0 - Frequency of mictur ition] urinary frequency Open Access - Established with Kb Pelaez CNP 10/17/2022 Last Documented On 3 12:51PM ; [facility] [Z68.42 - Body mass index [B ND] 45.0-49.9, adult] assessment of body mass index was 47.2 kg/m2 Open Access - Established with Kb Pelaez POT SANDER 10/17/2022 Last Documented On 3 12:51PM ; [facility] Intervention and counseling on cessation of tobacco use, 3-10 minutes Discussed medication and nicotine replacement for tobacco cessation Open Access - Established with Kb Pelaez POT SANDER 10/17/2022 Last Documented On 3 12:51PM ; [facility] Nicotine dependence Open Access - Established wi Kb Pelaez POT SANDER 10/17/2022 Last Documented On 3 12:51PM ; [facility] Venipuncture was performed Open Access - Established with Kb Pelaez JAROD 10/17/2022 Last Documented On 3 12:51PM ; [facility] [F17.200 - Nicotine dependen ce, unspecified, uncomplicated] nicotine dependence uncomplicated Medical Established Patient with Juanita Hatnadeemdorf PA-C 10/09/2022 Last Documented On 3 2:42PM ; [facility] [Z68.42 - Body mass index [B ND] 45.0-49.9, adult] assessment of body mass index Medical Established Patient with Juanita Mandydorf PA-C 10/09/2022 Last Documented On 3 2:42PM ; [facility] Classic migraine (with aura) with intractable migraine with status migrainosus Medical Established Patient with Juanita Hattendorf PA-C 10/09/2022 Last Documented On 3 2:42PM ; [facility] Iron deficiency anemia Medical Establish ed Patient with Juanita Hattendorf PA-C 10/09/2022 Last Documented On 3 2:42PM ; [facility] Prediabetes Medical Established Patient with Juanita Hattendorf PA-C 10/09/2022 Last Documented On 3 2:42PM ; [facility] [R73.03 - Prediabetes] prediabetes Open Access - Established with Juanita Lewsi PA-C 09/18/2022 Last Documented On 3 2:31PM ; [facility] [Z68.42 - Body mass index [B ND] 45.0-49.9, adult] assessment of body mass index Open Access - Established with Juanita Hattendorf PA-C 09/18/2022 Last Documented On 3 2:31PM ; [facility] Classic migraine (with aura) with intractable migraine with status migrainosus Open Access - Established with Juanita Hattendorf PA-C 09/18/2022 Last Documented On 3 2:31PM ; [facility] [S80.12XD - Contusion of lef t lower leg, subsequent encounter] contusion with intact skin surface of left anterior lower leg Medical Established Patient with Junaita Hattendorf PA-C 05/27/2022 Last Documented On 3 4:00PM ; [facility] [Z68.42 - Body mass index [B ND] 45.0-49.9, adult] assessment of body mass index Medical Established Patient with Juanita Hattendorf PA-C 05/27/2022 Last Documented On 3 4:00PM ; [facility] Pain in lower leg Medical Established Patient wi th Juanita Mandydorf PA-C 05/27/2022 Last Documented On 3 4:00PM ; [facility] Iron deficiency anemia Chart Update with Juanita Hattendorf PA-C 05/21/2022 Last Documented On 3 4:12PM ; [facility] [E55.9 - Vitamin D deficienc y, unspecified] vitamin D deficiency Open Access - Established with Juanita Hattendorf PA-C 05/17/2022 Last Documented On 3 3:44PM ; [facility] [Z68.42 - Body mass index [B ND] 45.0-49.9, adult] assessment of body mass index Open Access - Established with Juanita Hattendorf PA-C 05/17/2022 Last Documented On 3 3:44PM ; [facility] Iron deficiency anemia Open Access - Est ablished with Juanita Hattendorf PA-C 05/17/2022 Last Documented On 3 3:44PM ; [facility] Organic sleep apnea Open Access - Established wi th Juanita Lewis PA-C 05/17/2022 Last Documented On 3 3:44PM ; [facility] Primary snoring Open Access - Established with Harjinder Lewis PA-C 05/17/2022 Last Documented On 3 3:44PM ; [facility] Bipolar I disorder Established Patient with N lavonne Martinez [employer] 04/29/2022 Last Documented On 3 11:36AM ; [facility] Nicotine dependence Established Patient with Odalys Martinez [employer]QU[employer]MENT MECH[employer]IC 04/29/2022 Last Documented On 3 11:36AM ; [facility] [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) Open Access New Patient with Juanita Mandydorf PA-C 04/29/2022 Last Documented On 3 1:03PM ; [facility] [Z00.01 - Encounter for gene [facility] adult medical examination with abnormal findings] routine history and physical Open Access New Patient with Juanita Galvandorf PA-C 04/29/2022 Last Documented On 3 1:03PM ; [facility] [Z68.42 - Body mass index [B ND] 45.0-49.9, adult] assessment of body mass index Open Access New Patient with Juanita Mandydorf PA-C 04/29/2022 Last Documented On 3 1:03PM ; [facility] Diabetes Risk Test Score was five score 04/29/2022 Open Access New Patient with Juanita Hattendorf PA-C 04/29/2022 Last Documented On 3 1:03PM ; [facility] Recurrent pharyngitis streptococcus Open Access New Patient with Juanita Hattendorf PA-C 04/29/2022 Last Documented On 3 1:03PM ; [facility] Screening for Hep C Open Access New Patient with Juanita Hattendorf PA-C 04/29/2022 Last Documented On 3 1:03PM ; [facility] Screening for HIV Open Access New Patient with S yen Joshua HARTLEY 04/29/2022 Last Documented On 3 1:03PM ; [facility] Work Phone: 1([phone]) 360-822408-31-2023 Progress note* Progress note Date Encounter Last Documented by 10/17/2022 Open Access - Established Last d ocumented on 10/17/2022; 8:20 PM, Kb Pelaez CNP; [facility] Active Problems & Conditions - F31.9 [...] sore throat for 1 day. Associated symptoms includefatigue, feeling feverish, and cough. Denies muscle aches, shortness of breath, chest pain. No known sick contact. Is 3 days overdue for menses. Has had 7 miscarriages, completed work-up with PCP and EYE SPECIALIST. Leaves for [place] on Friday for work Current Medication - [...] Auto-injector inject into thigh at onset of allergicreaction, 30 days, 0 refills - Ibuprofen 800 [...] days, 2 refills - Vitamin D (Ergocalciferol) 61972 UNIT Oral Capsule 0 days, 0 refills [...] Allergies - cabbage Reaction: Anaphylaxis (Severe) - Ridley Reaction: Skin Rashes / Eruption of skin [...] BP-Sitting L106/60 mmHg BP Cuff SizeLarge Pulse Rate-Qswaonf41 bpm Pulse RhythmRegular Respiration Rate22 per min Temp-Oral98.3 F Hrexcd67 in Cyzdvk490 lbs 6.4 oz Body Mass Index47.2 kg/m2 Body Surface Area2.4 m2 Oxygen Cqdovpzhnm04 % O2 DeviceNone (Room Air) BnY476 % Vital Signs: - Systolic blood pressure [...] Leukocyte Estrase Negative. Blood Trace Non-Hemolyzed, Specific [place] 1.030, and pH 6.0. Urine clarity Cloudy [...] [id number] Progress note* Progress note Date Encounter Last Documented by 10/17/2022 Open Access - Established Last d ocumented on 10/18/2022; 12:51 PM, Kb Pelaez CNP; [facility] Active Problems & [...] sore throat for 1 day. Associated symptoms includefatigue, feeling feverish, and cough. Denies muscle aches, shortness of breath, chest pain. No known sick contact. Is 3 days overdue for menses. Has had 7 miscarriages, completed work-up with PCP and EYE SPECIALIST. Leaves for [place] on Friday for work Current Medication - [...] Auto-injector inject into thigh at onset of allergicreaction, 30 days, 0 refills - Ibuprofen 800 [...] days, 2 refills - Vitamin D (Ergocalciferol) 77514 UNIT Oral Capsule 0 days, 0 refills [...] Allergies - cabbage Reaction: Anaphylaxis (Severe) - Ridley Reaction: Skin Rashes / Eruption of skin [...] BP-Sitting L106/60 mmHg BP Cuff SizeLarge Pulse Rate-Liiyhmy85 bpm Pulse RhythmRegular Respiration Rate22 per min Temp-Oral98.3 F Fcqomv34 in Gnrbpr393 lbs 6.4 oz Body Mass Index47.2 kg/m2 Body Surface Area2.4 m2 Oxygen Vpedjsseqv41 % O2 DeviceNone (Room Air) FsH584 % Vital Signs: - Systolic blood pressure [...] Leukocyte Estrase Negative. Blood Trace Non-Hemolyzed, Specific [place] 1.030, and pH 6.0. Urine clarity Cloudy [...] - Number of attempts for venipuncture two [facility]08-31-2023 Progress note* Progress note Date Encounter Last Documented by 10/17/2022 Open Access - Established Last d ocumented on 10/18/2022; 12:51 PM, Kb Pelaez POT SANDER; [facility] Active Problems & Conditions - F31.9 [...] sore throat for 1 day. Associated symptoms includefatigue, feeling feverish, and cough. Denies muscle aches, shortness of breath, chest pain. No known sick contact. Is 3 days overdue for menses. Has had 7 miscarriages, completed work-up with PCP and EYE SPECIALIST. Leaves for [place] on Friday for work Current Medication - [...] Auto-injector inject into thigh at onset of allergicreaction, 30 days, 0 refills - Ibuprofen 800 [...] days, 2 refills - Vitamin D (Ergocalciferol) 54207 UNIT Oral Capsule 0 days, 0 refills [...] Allergies - cabbage Reaction: Anaphylaxis (Severe) - Ridley Reaction: Skin Rashes / Eruption of skin [...] BP-Sitting L106/60 mmHg BP Cuff SizeLarge Pulse Rate-Gfklyqk47 bpm Pulse RhythmRegular Respiration Rate22 per min Temp-Oral98.3 F Ajxufj67 in Rhyijt299 lbs 6.4 oz Body Mass Index47.2 kg/m2 Body Surface Area2.4 m2 Oxygen Ucennrcpwv48 % O2 DeviceNone (Room Air) KeU312 % Vital Signs: - Systolic blood pressure [...] Leukocyte Estrase Negative. Blood Trace Non-Hemolyzed, Specific [place] 1.030, and pH 6.0. Urine clarity Cloudy [...] - Number of attempts for venipuncture two [facility]08-31-2023 Progress note* Progress note Date Encounter Last Documented by 10/17/2022 Open Access - Established Last d ocumented on 10/18/2022; 12:51 PM, Kb Pelaez; [facility] Active Problems & Conditions - F31.9 [...] sore throat for 1 day. Associated symptoms includefatigue, feeling feverish, and cough. Denies muscle aches, shortness of breath, chest pain. No known sick contact. Is 3 days overdue for menses. Has had 7 miscarriages, completed work-up with PCP and EYE SPECIALIST. Leaves for [place] on Friday for work Current Medication - [...] Auto-injector inject into thigh at onset of allergicreaction, 30 days, 0 refills - Ibuprofen 800 [...] days, 2 refills - Vitamin D (Ergocalciferol) 57969 UNIT Oral Capsule 0 days, 0 refills [...] Allergies - cabbage Reaction: Anaphylaxis (Severe) - Ridley Reaction: Skin Rashes / Eruption of skin [...] BP-Sitting L106/60 mmHg BP Cuff SizeLarge Pulse Rate-Qydasyj31 bpm Pulse RhythmRegular Respiration Rate22 per min Temp-Oral98.3 F Iyxrne66 in Omtjsg604 lbs 6.4 oz Body Mass Index47.2 kg/m2 Body Surface Area2.4 m2 Oxygen Vutoiuolrm55 % O2 DeviceNone (Room Air) JxW517 % Vital Signs: - Systolic blood pressure [...] Leukocyte Estrase Negative. Blood Trace Non-Hemolyzed, Specific [place] 1.030, and pH 6.0. Urine clarity Cloudy [...] - Number of attempts for venipuncture two [facility]08-31-2023 Instructions Includes: Instructions for all patient encounters Instructions to patient Intervention and counseling on cessation of tobacco use, 3-10 minutes Discussed medication and nicotine replacement for tobacco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 Hattendorf PA-C 10/09/2022 Last Documented On 3 2:42PM ; [facility] Prediabetes Medical Established Patient with Juanita Hattendorf PA-C 10/09/2022 Last Documented On 3 2:42PM ; [facility] [R73.03 - Prediabetes] prediabetes Open Access - Established with Juanita Hattendorf PA-C 09/18/2022 Last Documented On 3 2:31PM ; [facility] [Z68.42 - Body mass index [B ND] 45.0-49.9, adult] assessment of body mass index Open Access - Established with Juanita Hattendorf PA-C 09/18/2022 Last Documented On 3 2:31PM ; [facility] Classic migraine (with aura) with intractable migraine with status migrainosus Open Access - Established with Juanita Hattendorf PA-C 09/18/2022 Last Documented On 3 2:31PM ; [facility] [S80.12XD - Contusion of lef t lower leg, subsequent encounter] contusion with intact skin surface of left anterior lower leg Medical Established Patient with Juanita Hattendorf PA-C 05/27/2022 Last Documented On 3 4:00PM ; [facility] [Z68.42 - Body mass index [B ND] 45.0-49.9, adult] assessment of body mass index Medical Established Patient with Juanita Hattendorf PA-C 05/27/2022 Last Documented On 3 4:00PM ; [facility] Pain in lower leg Medical Established Patient wi th Juanita Joshua PA-C 05/27/2022 Last Documented On 3 4:00PM ; [facility] Iron deficiency anemia Chart Update with Juanita Lewis PA-C 05/21/2022 Last Documented On 3 4:12PM ; [facility] [E55.9 - Vitamin D deficienc y, unspecified] vitamin D deficiency Open Access - Established with Juanita Lewis PA-C 05/17/2022 Last Documented On 3 3:44PM ; [facility] [Z68.42 - Body mass index [B ND] 45.0-49.9, adult] assessment of body mass index Open Access - Established with Juanita Lewis PA-C 05/17/2022 Last Documented On 3 3:44PM ; [facility] Iron deficiency anemia Open Access - Est ablished with Juanita Lewis PA-C 05/17/2022 Last Documented On 3 3:44PM ; [facility] Organic sleep apnea Open Access - Established wi th Juanita Lewis PA-C 05/17/2022 Last Documented On 3 3:44PM ; [facility] Primary snoring Open Access - Established with Harjinder barlow Joshua PA-C 05/17/2022 Last Documented On 3 3:44PM ; [facility] Bipolar I disorder Established Patient with N lavonne SMITH 04/29/2022 Last Documented On 3 11:36AM ; [facility] Nicotine dependence Established Patient with Odalys SMITH 04/29/2022 Last Documented On 3 11:36AM ; [facility] [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) Open Access New Patient with Juanita Lewis PA-C 04/29/2022 Last Documented On 3 1:03PM ; [facility] [Z00.01 - Encounter for gene ral adult medical examination with abnormal findings] routine history and physical Open Access New Patient with Juanita Lewis PA-C 04/29/2022 Last Documented On 3 1:03PM ; [facility] [Z68.42 - Body mass index [B ND] 45.0-49.9, adult] assessment of body mass index Open Access New Patient with Juanita Lewis PA-C 04/29/2022 Last Documented On 3 1:03PM ; [facility] Diabetes Risk Test Score was five score 04/29/2022 Open Access New Patient with Juanita Lewis PA-C 04/29/2022 Last Documented On 3 1:03PM ; [facility] Recurrent pharyngitis streptococcus Open Access New Patient with Juanita Lewis PA-C 04/29/2022 Last Documented On 3 1:03PM ; [facility] Screening for Hep C Open Access New Patient with Juanita Lewis PA-C 04/29/2022 Last Documented On 3 1:03PM ; [facility] Screening for HIV Open Access New Patient with Harjinder Guanrf PA-C 04/29/2022 Last Documented On 3 1:03PM ; [facility] Work Phone: Evaluation note Includes: Assessments for all patient encounters Findings Encounter Date Bipolar I disorder Established Patient with Dixon Moran LOGGING EQUIPMENT MECHANIC-S 04/09/2023 Last Documented On 4 10:43AM ; [facility] Intervention and counseling on cessation of tobacco use, 3-10 minutes Discussed medication and nicotine replacement for tobacco cessation Established Patient with Kristin Moran LOGGING EQUIPMENT MECHANIC-S 04/09/2023 Last Documented On 4 10:43AM ; [facility] Nicotine dependence Established Patient with Kristin Moran LOGGING EQUIPMENT MECHANIC-S 04/09/2023 Last Documented On 4 10:43AM ; [facility] [Z68.42 - Body mass index [B ND] 45.0-49.9, adult] assessment of body mass index Open Access - Established with Juanita Lewis PA-C 04/09/2023 Last Documented On 4 10:53AM ; [facility] Assessment of initial prescr iption of implantable subdermal contraceptive Open Access - Established with Juanita Lewis PA-C 04/09/2023 Last Documented On 4 10:53AM ; [facility] Bipolar I disorder Open Access - Established wit h Juanita Lewis PA-C 04/09/2023 Last Documented On 4 10:53AM ; [facility] Consent form on file for pro cedure :Nexplanon Open Access - Established with Juanita Lewis PA-C 04/09/2023 Last Documented On 4 10:53AM ; [facility] Intervention and counseling on cessation of tobacco use, 3-10 minutes Discussed medication and nicotine replacement for tobacco cessation Open Access - Established with Juanita Lewis PA-C 04/09/2023 Last Documented On 4 10:53AM ; [facility] Iron deficiency anemia Open Access - Est ablished with Juanita Lewis PA-C 04/09/2023 Last Documented On 4 10:53AM ; [facility] Nexplanon Implant placed Pat ient is [...] 04/09/2023 Last Documented On 4 10:53AM ; [facility] Nexplanon Implant Wound Care : Patient [...] symptom Open Access - Established with Juanita Mandydorf PA-C 04/09/2023 Last Documented On 4 10:53AM ; [facility] Prediabetes Open Access - Established with Harjinder Lewis PA-C 04/09/2023 Last Documented On 4 10:53AM ; [facility] Bipolar I disorder BH Established Patient with Dixon SMITH-S 01/24/2023 Last Documented On 3 9:45PM ; [facility] [G47.30 - Sleep apnea, unspe cified] organic sleep apnea Medical Established Patient with Juanita Galvandorf PA-C 01/24/2023 Last Documented On 3 10:48AM ; [facility] [Z68.42 - Body mass index [B ND] 45.0-49.9, adult] assessment of body mass index was 46.3 kg/m2 Medical Established Patient with Juanita Mandydorf PA-C 01/24/2023 Last Documented On 3 10:48AM ; [facility] Classic migraine with aura w ith intractable migraine with status migrainosus Medical Established Patient with Juanita Barbaratendorf PA-C 01/24/2023 Last Documented On 3 10:48AM ; [facility] Mild persistent asthma with exacerbation Medical Established Patient with Juanita Lewis PA-C 01/24/2023 Last Documented On 3 10:48AM ; [facility] [Z02.1 - Encounter for pre-e mployment examination] routine pre-employment screening examination Open Access - Established with Juanita Lewis PA-C 11/29/2022 Last Documented On 3 4:45PM ; [facility] [Z11.1 - Encounter for miguel angel marcus for respiratory tuberculosis] visit for: screening for pulmonary tuberculosis Open Access - Established with Juanita Galvandorf PA-C 11/29/2022 Last Documented On 3 4:45PM ; [facility] [Z68.42 - Body mass index [B ND] 45.0-49.9, adult] assessment of body mass index Open Access - Established with Juanita Guanrf PA-C 11/29/2022 Last Documented On 3 4:45PM ; [facility] Encounter for Immunization Open Access - Established with Juanita Guanrf PA-C 11/29/2022 Last Documented On 3 4:45PM ; [facility] Prediabetes Open Access - Established with Harjinder harmanmakayla Barbaranadeemchip PA-C 11/29/2022 Last Documented On 3 4:45PM ; [facility] [Z68.42 - Body mass index [B ND] 45.0-49.9, adult] assessment of body mass index Open Access - Established with Juanita Guanrf PA-C 11/05/2022 Last Documented On 3 12:38PM ; [facility] Acute serous otitis media of left ear Open Access - Established with Juanita Barbaratendorf PA-C 11/05/2022 Last Documented On 3 12:38PM ; [facility] [J02.9 - Acute pharyngitis, unspecified] acute pharyngitis Open Access - Established with Kb Pelaez 10/17/2022 Last Documented On 3 12:51PM ; [facility] [J11.1 - Influenza due to un identified influenza virus with other respiratory manifestations] influenza with URI Open Access - Established with Kb Pelaez 10/17/2022 Last Documented On 3 12:51PM ; [facility] [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) Open Access - Established with Kb Pelaez 10/17/2022 Last Documented On 3 12:51PM ; [facility] [R35.0 - Frequency of mictur ition] urinary frequency Open Access - Established with Kb Pelaez 10/17/2022 Last Documented On 3 12:51PM ; [facility] [Z68.42 - Body mass index [B ND] 45.0-49.9, adult] assessment of body mass index was 47.2 kg/m2 Open Access - Established with Kb Pelaez 10/17/2022 Last Documented On 3 12:51PM ; [facility] Intervention and counseling on cessation of tobacco use, 3-10 minutes Discussed medication and nicotine replacement for tobacco cessation Open Access - Established with Kb Pelaez 10/17/2022 Last Documented On 3 12:51PM ; [facility] Nicotine dependence Open Access - Established wi th Kb Pelaez 10/17/2022 Last Documented On 3 12:51PM ; [facility] Venipuncture was performed Open Access - Establi shed with Kb Pelaez 10/17/2022 Last Documented On 3 12:51PM ; [facility] [F17.200 - Nicotine dependen ce, unspecified, uncomplicated] nicotine dependence uncomplicated Medical Established Patient with Juanita Rogerf PA-C 10/09/2022 Last Documented On 3 2:42PM ; [facility] [Z68.42 - Body mass index [B ND] 45.0-49.9, adult] assessment of body mass index Medical Established Patient with Juanita Mandydorf PA-C 10/09/2022 Last Documented On 3 2:42PM ; [facility] Classic migraine (with aura) with intractable migraine with status migrainosus Medical Established Patient with Juanita Mandydorf PA-C 10/09/2022 Last Documented On 3 2:42PM ; [facility] Iron deficiency anemia Medical Establish ed Patient with Juanita Galvandorf PA-C 10/09/2022 Last Documented On 3 2:42PM ; [facility] Prediabetes Medical Established Patient with Juanita Barbaratendorf PA-C 10/09/2022 Last Documented On 3 2:42PM ; [facility] [R73.03 - Prediabetes] prediabetes Open Access - Established with Juanita Mandydorf PA-C 09/18/2022 Last Documented On 3 2:31PM ; [facility] [Z68.42 - Body mass index [B ND] 45.0-49.9, adult] assessment of body mass index Open Access - Established with Juanita Mandydorf PA-C 09/18/2022 Last Documented On 3 2:31PM ; [facility] Classic migraine (with aura) with intractable migraine with status migrainosus Open Access - Established with Juanita Mandydorf PA-C 09/18/2022 Last Documented On 3 2:31PM ; [facility] [S80.12XD - Contusion of lef t lower leg, subsequent encounter] contusion with intact skin surface of left anterior lower leg Medical Established Patient with Juanita Mandydorf PA-C 05/27/2022 Last Documented On 3 4:00PM ; [facility] [Z68.42 - Body mass index [B ND] 45.0-49.9, adult] assessment of body mass index Medical Established Patient with Juanita Mandydorf PA-C 05/27/2022 Last Documented On 3 4:00PM ; [facility] Pain in lower leg Medical Established Patient wi th Juanita Mandydorf PA-C 05/27/2022 Last Documented On 3 4:00PM ; [facility] Iron deficiency anemia Chart Update with Juanita Mandydorf PA-C 05/21/2022 Last Documented On 3 4:12PM ; [facility] [E55.9 - Vitamin D deficienc y, unspecified] vitamin D deficiency Open Access - Established with Juanita Mandydorf PA-C 05/17/2022 Last Documented On 3 3:44PM ; [facility] [Z68.42 - Body mass index [B ND] 45.0-49.9, adult] assessment of body mass index Open Access - Established with Juanita Lewis PA-C 05/17/2022 Last Documented On 3 3:44PM ; [facility] Iron deficiency anemia Open Access - Est ablished with Juanita Galvandorf PA-C 05/17/2022 Last Documented On 3 3:44PM ; [facility] Organic sleep apnea Open Access - Established wi th Juanita Galvandorf PA-C 05/17/2022 Last Documented On 3 3:44PM ; [facility] Primary snoring Open Access - Established with Harjinder Guanrf PA-C 05/17/2022 Last Documented On 3 3:44PM ; [facility] Bipolar I disorder Established Patient with N lavonne MÁRQUEZW 04/29/2022 Last Documented On 3 11:36AM ; [facility] Nicotine dependence Established Patient with Odalys Martinez LOGGING EQUIPMENT MECHANIC 04/29/2022 Last Documented On 3 11:36AM ; [facility] [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) Open Access New Patient with Juanita Mandydorf PA-C 04/29/2022 Last Documented On 3 1:03PM ; [facility] [Z00.01 - Encounter for gene [facility] adult medical examination with abnormal findings] routine history and physical Open Access New Patient with Juanita Galvandorf PA-C 04/29/2022 Last Documented On 3 1:03PM ; [facility] [Z68.42 - Body mass index [B ND] 45.0-49.9, adult] assessment of body mass index Open Access New Patient with Juanita Mandydorf PA-C 04/29/2022 Last Documented On 3 1:03PM ; [facility] Diabetes Risk Test Score was five score 04/29/2022 Open Access New Patient with Juanita Mandydorf PA-C 04/29/2022 Last Documented On 3 1:03PM ; [facility] Recurrent pharyngitis streptococcus Open Access New Patient with Juanita Lewis PA-C 04/29/2022 Last Documented On 3 1:03PM ; [facility] Screening for Hep C Open Access New Patient with Juanita Lewis PA-C 04/29/2022 Last Documented On 3 1:03PM ; [facility] Screening for HIV Open Access New Patient with Harjinder Lewis PA-C 04/29/2022 Last Documented On 3 1:03PM ; [facility] Work Phone: Evaluation note Includes: Assessments for all patient encounters Findings Encounter Date Bipolar disorder NOS Established Patient with Odalys Martinez [employer]GGING EQUIPMENT MECHANIC 04/23/2023 Last Documented On 4 12:14PM ; [facility] Nicotine dependence Established Patient with Odalys Martinez LOGGING EQUIPMENT MECHANIC 04/23/2023 Last Documented On 4 12:14PM ; [facility] [Z68.42 - Body mass index [B ND] 45.0-49.9, adult] assessment of body mass index was 45.3 kg/m2 Medical Established Patient with Juanita Lewis PA-C 04/23/2023 Last Documented On 4 11:53AM ; [facility] Bipolar I disorder Medical Established Patient w jose Lewis PA-C 04/23/2023 Last Documented On 4 11:53AM ; [facility] Nicotine dependence continuous Medical E stablished Patient with Juanita Sequeiratendorf PA-C 04/23/2023 Last Documented On 4 11:53AM ; [facility] Bipolar I disorder Established Patient with Dixon Moran LOGG[employer] EQUIPMENT MECHANIC-S 04/09/2023 Last Documented On 4 4:48PM ; [facility] Intervention and counseling on cessation of tobacco use, 3-10 minutes Discussed medication and nicotine replacement for tobacco cessation Established Patient with Kristin Moran LOGG[employer] EQUIPMENT MECHANIC-S 04/09/2023 Last Documented On 4 4:48PM ; [facility] Nicotine dependence BH Established Patient with Kristin Moran LUIS-S 04/09/2023 Last Documented On 4 4:48PM ; [facility] [Z68.42 - Body mass index [B ND] 45.0-49.9, adult] assessment of body mass index Open Access - Established with Juanita Lewis PA-C 04/09/2023 Last Documented On 4 10:53AM ; [facility] Assessment of initial prescr iption of implantable subdermal contraceptive Open Access - Established with Juanita Lewis PA-C 04/09/2023 Last Documented On 4 10:53AM ; [facility] Bipolar I disorder Open Access - Established wit h Juanita Lewis PA-C 04/09/2023 Last Documented On 4 10:53AM ; [facility] Consent form on file for pro cedure :Nexplanon Open Access - Established with Juanita Lewis PA-C 04/09/2023 Last Documented On 4 10:53AM ; [facility] Intervention and counseling on cessation of tobacco use, 3-10 minutes Discussed medication and nicotine replacement for tobacco cessation Open Access - Established with Juanita Lewis PA-C 04/09/2023 Last Documented On 4 10:53AM ; [facility] Iron deficiency anemia Open Access - Est ablished with Juanita Lewis PA-C 04/09/2023 Last Documented On 4 10:53AM ; [facility] Nexplanon Implant placed Pat ient is [...] 04/09/2023 Last Documented On 4 10:53AM ; [facility] Nexplanon Implant Wound Care : Patient [...] 04/09/2023 Last Documented On 4 10:53AM ; [facility] Prediabetes Open Access - Established with Harjinder Lewis PA-C 04/09/2023 Last Documented On 4 10:53AM ; [facility] Bipolar I disorder BH Established Patient with Dixon SALGADO 01/24/2023 Last Documented On 3 9:45PM ; [facility] [G47.30 - Sleep apnea, unspe cified] organic sleep apnea Medical Established Patient with Juanita Lewis PA-C 01/24/2023 Last Documented On 3 10:48AM ; [facility] [Z68.42 - Body mass index [B ND] 45.0-49.9, adult] assessment of body mass index was 46.3 kg/m2 Medical Established Patient with Juanita Lewis PA-C 01/24/2023 Last Documented On 3 10:48AM ; [facility] Classic migraine with aura w ith intractable migraine with status migrainosus Medical Established Patient with Juanita Mandydorf PA-C 01/24/2023 Last Documented On 3 10:48AM ; [facility] Mild persistent asthma with exacerbation Medical Established Patient with Juanita Guanrf PA-C 01/24/2023 Last Documented On 3 10:48AM ; [facility] [Z02.1 - Encounter for pre-e mployment examination] routine pre-employment screening examination Open Access - Established with Juanita Lewis PA-C 11/29/2022 Last Documented On 3 4:45PM ; [facility] [Z11.1 - Encounter for miguel angel marcus for respiratory tuberculosis] visit for: screening for pulmonary tuberculosis Open Access - Established with Juanita Lewis PA-C 11/29/2022 Last Documented On 3 4:45PM ; [facility] [Z68.42 - Body mass index [B ND] 45.0-49.9, adult] assessment of body mass index Open Access - Established with Juanita Lewis PA-C 11/29/2022 Last Documented On 3 4:45PM ; [facility] Encounter for Immunization Open Access - Established with Juanita Lewis PA-C 11/29/2022 Last Documented On 3 4:45PM ; [facility] Prediabetes Open Access - Established with Harjinder harmanmakayla Barbaranadeemchip PA-C 11/29/2022 Last Documented On 3 4:45PM ; [facility] [Z68.42 - Body mass index [B ND] 45.0-49.9, adult] assessment of body mass index Open Access - Established with Juanita Lewis PA-C 11/05/2022 Last Documented On 3 12:38PM ; [facility] Acute serous otitis media of left ear Open Access - Established with Juanita Lewis PA-C 11/05/2022 Last Documented On 3 12:38PM ; [facility] [J02.9 - Acute pharyngitis, unspecified] acute pharyngitis Open Access - Established with Kb Pelaez 10/17/2022 Last Documented On 3 12:51PM ; [facility] [J11.1 - Influenza due to un identified influenza virus with other respiratory manifestations] influenza with URI Open Access - Established with Kb Pelaez 10/17/2022 Last Documented On 3 12:51PM ; [facility] [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) Open Access - Established with Kb Pelaez 10/17/2022 Last Documented On 3 12:51PM ; [facility] [R35.0 - Frequency of mictur ition] urinary frequency Open Access - Established with Kb Pelaez 10/17/2022 Last Documented On 3 12:51PM ; [facility] [Z68.42 - Body mass index [B ND] 45.0-49.9, adult] assessment of body mass index was 47.2 kg/m2 Open Access - Established with Kb Pelaez 10/17/2022 Last Documented On 3 12:51PM ; [facility] Intervention and counseling on cessation of tobacco use, 3-10 minutes Discussed medication and nicotine replacement for tobacco cessation Open Access - Established with Kb Pelaez 10/17/2022 Last Documented On 3 12:51PM ; [facility] Nicotine dependence Open Access - Established wi Kb Pelaez 10/17/2022 Last Documented On 3 12:51PM ; [facility] Venipuncture was performed Open Access - Establi shed with Kb Pelaez 10/17/2022 Last Documented On 3 12:51PM ; [facility] [F17.200 - Nicotine dependen ce, unspecified, uncomplicated] nicotine dependence uncomplicated Medical Established Patient with Juanita Lewis PA-C 10/09/2022 Last Documented On 3 2:42PM ; [facility] [Z68.42 - Body mass index [B ND] 45.0-49.9, adult] assessment of body mass index Medical Established Patient with Juanita Hattendorf PA-C 10/09/2022 Last Documented On 3 2:42PM ; [facility] Classic migraine (with aura) with intractable migraine with status migrainosus Medical Established Patient with Juanita Hattendorf PA-C 10/09/2022 Last Documented On 3 2:42PM ; [facility] Iron deficiency anemia Medical Establish ed Patient with Juanita Hattendorf PA-C 10/09/2022 Last Documented On 3 2:42PM ; [facility] Prediabetes Medical Established Patient with Juanita Hattendorf PA-C 10/09/2022 Last Documented On 3 2:42PM ; [facility] [R73.03 - Prediabetes] prediabetes Open Access - Established with Juanita Hattendorf PA-C 09/18/2022 Last Documented On 3 2:31PM ; [facility] [Z68.42 - Body mass index [B ND] 45.0-49.9, adult] assessment of body mass index Open Access - Established with Juanita Hattendorf PA-C 09/18/2022 Last Documented On 3 2:31PM ; [facility] Classic migraine (with aura) with intractable migraine with status migrainosus Open Access - Established with Juanita Hattendorf PA-C 09/18/2022 Last Documented On 3 2:31PM ; [facility] [S80.12XD - Contusion of lef t lower leg, subsequent encounter] contusion with intact skin surface of left anterior lower leg Medical Established Patient with Juanita Hattendorf PA-C 05/27/2022 Last Documented On 3 4:00PM ; [facility] [Z68.42 - Body mass index [B ND] 45.0-49.9, adult] assessment of body mass index Medical Established Patient with Juanita Hattendorf PA-C 05/27/2022 Last Documented On 3 4:00PM ; [facility] Pain in lower leg Medical Established Patient wi th Juanita Hattendorf PA-C 05/27/2022 Last Documented On 3 4:00PM ; [facility] Iron deficiency anemia Chart Update with Juanita Galvanchip PA-C 05/21/2022 Last Documented On 3 4:12PM ; [facility] [E55.9 - Vitamin D deficienc y, unspecified] vitamin D deficiency Open Access - Established with Juanita Lewis PA-C 05/17/2022 Last Documented On 3 3:44PM ; [facility] [Z68.42 - Body mass index [B ND] 45.0-49.9, adult] assessment of body mass index Open Access - Established with Juanita Lewis PA-C 05/17/2022 Last Documented On 3 3:44PM ; [facility] Iron deficiency anemia Open Access - Est ablished with Juanita Lewis PA-C 05/17/2022 Last Documented On 3 3:44PM ; [facility] Organic sleep apnea Open Access - Established wi th Juanita Lewis PA-C 05/17/2022 Last Documented On 3 3:44PM ; [facility] Primary snoring Open Access - Established with Harjinder MORALES-C 05/17/2022 Last Documented On 3 3:44PM ; [facility] Bipolar I disorder Established Patient with Chavez SMITH 04/29/2022 Last Documented On 3 11:36AM ; [facility] Nicotine dependence Established Patient with Odalys SMITH 04/29/2022 Last Documented On 3 11:36AM ; [facility] [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) Open Access New Patient with Juanita Galvanmaico PA-C 04/29/2022 Last Documented On 3 1:03PM ; [facility] [Z00.01 - Encounter for gene [facility] adult medical examination with abnormal findings] routine history and physical Open Access New Patient with Juanita Galvanchip PA-C 04/29/2022 Last Documented On 3 1:03PM ; [facility] [Z68.42 - Body mass index [B ND] 45.0-49.9, adult] assessment of body mass index Open Access New Patient with Juanita Guanrf PA-C 04/29/2022 Last Documented On 3 1:03PM ; [facility] Diabetes Risk Test Score was five score 04/29/2022 Open Access New Patient with Juanita Galvandorf PA-C 04/29/2022 Last Documented On 3 1:03PM ; [facility] Recurrent pharyngitis streptococcus Open Access New Patient with Juanita Galvandorf PA-C 04/29/2022 Last Documented On 3 1:03PM ; [facility] Screening for Hep C Open Access New Patient with Juanita Galvandorf PA-C 04/29/2022 Last Documented On 3 1:03PM ; [facility] Screening for HIV Open Access New Patient with Harjinder Guanrf PA-C 04/29/2022 Last Documented On 3 1:03PM ; [facility] Work Phone: Evaluation note Includes: Assessments for all patient encounters Findings Encounter Date Bipolar disorder NOS Established Patient with Odalys MÁRQUEZW 04/23/2023 Last Documented On 4 12:14PM ; [facility] Nicotine dependence Established Patient with Odalys Martinez [employer]GGING EQUIPMENT MECHANIC 04/23/2023 Last Documented On 4 12:14PM ; [facility] [Z68.42 - Body mass index [B ND] 45.0-49.9, adult] assessment of body mass index was 45.3 kg/m2 Medical Established Patient with Juanita Sequeiratendorf PA-C 04/23/2023 Last Documented On 4 1:33PM ; [facility] Bipolar I disorder Medical Established Patient w ith Juanita Galvandorf PA-C 04/23/2023 Last Documented On 4 1:33PM ; [facility] Classic migraine with aura w ith intractable migraine with status migrainosus Medical Established Patient with Juanita Sequeiratendorf PA-C 04/23/2023 Last Documented On 4 1:33PM ; [facility] Nicotine dependence continuous Medical E stablished Patient with Juanita MORALES-C 04/23/2023 Last Documented On 4 1:33PM ; [facility] Bipolar I disorder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 with soap and water for at least 20 seconds, especially after blowing your nose, coughing, or sneezing; going to the bathroom; and before eating or preparing food. If soap and water are not readily available, use an alcohol-based hand front office director with at least 60% alcohol, covering all [...] isolation precautions should be made on a qtwz-pr-gqkq basis, in consultation with healthcare providers and [facility] health departments. https://www.cdc.gov/coronavirus/2019-ncov/hcp/dsgzplwg-ybmjqpv-extxkh.htmlTri[facility] departments: Antonino [phone] Reina [phone] Rachel [phone] Chele [phone] Gil [phone] Peebles [phone] Gloria [phone] Carlo [phone] Ernie [phone] Chadd [phone] Chalo Munoz [phone] You can call [phone] or 24 hours a day. Recommended precautions [...] 20 seconds or use an alcohol-based hand front office director that contains 60 to 95% alcohol, covering [...] with soap and water or alcohol-based hand front office director. Next, remove and dispose of facemask, and immediately clean your hands again with soap and water or alcohol-based hand front office director. Avoid sharing household items with the patient. [...] soap and water or an alcohol-based hand front office director) immediately after removing yourgloves. Read and follow [...] soap and water or an alcohol-based hand front office director) immediately after handling these items. Soap and water should be used preferentially if hands are visibly dirty. Discuss any additional questions with your state or local health department or healthcare provider.Check available hours when contacting your local health department. documented in this encounter* Attachments The following attachments cannot be sent through Care Everywhere. * Cough (Maldivian) * URI (Upper Respiratory Infection): Viral (Maldivian) documented in this encounterNo known hospital discharge [...] high fevers, or any other concerns arise. [facility] ED Clinic List Healthcare Providers Services Day of Week/ Hours [facility] [address] [facility] Pediatric Primary Care Adult Primary Care EYE SPECIALIST//Specialty Clinics Friday 8:00a 4:30p [address] Adult Medicine, Pediatrics, EYE SPECIALIST Friday 8:30a 4:30p [facility] Surgery [address] [place] [address] Friday 8:30a 11:00a [facility] [address] [facility] Adult Internal Medicine ([facility]) EYE SPECIALIST Clinic Pediatric Clinic Friday, Friday, , Friday 8:00a 4:30p Friday 1:00p 4:30p Friday, Friday, 8:00a 5:00p; Friday 8:00a 12:30p Friday 1p 4p Friday, Friday, , Friday 8:30a 4:15p Friday 12:30p 4:15p Health Department [facility] [address] [place] [address] Pediatric Primary Care Adult Primary Care OB/ Friday, Friday 8a 12p 8a 4:45p [facility] [address] [place] [address] [place] [address] # Pre & Post Adoption Counseling Support / nutrition Care Reward Incentive Program [facility] Fri, , Fri, Fri 10:00a 4:30p Thur 10:00a 7:30p [place] Location Friday - Friday 10a 4:30p [facility] EYE SPECIALIST [address] Adult Internal Medicine [address] [facility] Pediatrics [address] [facility], [address] Neuro / Headache [address] [facility] [place], [address] Friday 8:30a 5p [facility] [address] [facility] Fri, , , Fri 9:00a 4:30p Wed 1:00p 4:30p [facility] [address] [facility] [address] [facility] Friday 8:30a 5:00p [facility] [address] [facility] [address] Burn/Plastic, ENT, GI, Orthopedics, Surgical / Trauma, Urology, Vascular Friday 8:00 4:30p Call for an appointment [facility] [address] [facility] Adult Medicine, Eye Clinic, Dental Patient must be certified homeless Under age 18 not accepted Friday 8:00 4:30p [facility] [address] [facility] OB Friday, Friday, Friday, Friday 9a 5p 9a 6p Friday (OB only) [facility] [address] [facility] OB/ Friday 11a 7p , Fri, 9a 5p Friday 8a 4p 1st Friday 9a 1p Podiatry Clinic [address] [facility] [address] Friday 8:00 4:30 p [facility] [address] Free nurse visits [facility] Counseling Class Call or walk in [facility] [address] [place] Various Clinics 8a 5:30p [facility] Family Medicine [facility] [address] [facility], [address] Family Practice Friday 8a 4:30p [facility] [address] [place] [address] [address] [place] [address] Friday 8a 4:30p Friday 8a 4:30p 8a 8p Outpatient Clinics [facility] [address] [facility] Friday 9a 5p Diabetic Education Services Call for an appointment [facility] [address] [facility] Friday 8:30a 4p Dental Services [facility] [address] [facility] Must have source of income and must bring (2) recent check stubs to appointment By appointment only [facility] [address] Patient must be homeless, call for eligibility guidelines. Under age 18 NOT accepted Days and hours vary (Doors open at 8:30a day of week varies) Call for an appointment Miscellaneous Information [facility] Call for Help [phone] Call for an appointment H.E.L.P (Hospital Eligibility Link Program) toll free For financial assistance * Attachments The following attachments cannot be sent through Care Everywhere. * UTI (Urinary Tract Infection): Female (Maldivian) * Trichomoniasis (Maldivian) documented in this encounter* Instructions* Era Dong [...] through Care Everywhere. * Chest Pain: Musculoskeletal (Maldivian) documented in this encounter* Instructions* Pb Spicer MD - 05/18/2020 THANK YOU!!! From [facility] Emergency Department On behalf of the Emergency Department staff at [facility] Emergency [facility], I would like to thank you for giving [facility] the opportunity to address your health care [...] be sent through Care Everywhere. * Diarrhea (Maldivian) * Nausea and Vomiting (Maldivian) documented in this encounter Assessments Diagnosis Chronic [...] Primary Diarrhea, unspecified type Reason for Referral SpecialtyDiagnoses / ProceduresReferred By ContactReferred To ContactRadiology Diagnoses Bucket handle tear of meniscus of left knee, unspecified meniscus, unspecified whether old or current tear, initial encounter Procedures MRI KNEE LEFT WO CONTRAST Jennifer Bean DO [facility], [address] [place] [address], [address] [place] [address] [facility] [address] [place] [address] Referral IDStatusReasonStart DateExpiration DateVisits RequestedVisits [id number]/[id number] Chief Complaint and Reason for Visit Chief [...] section and content) DATE CREATED AUTHOR 08/30/2017 [facility] DATE CREATED AUTHOR AUTHOR'S ORGANIZ ATION 04/21/2019 [facility] DATE CREATED AUTHOR AUTHOR'S ORGANIZ ATION 09/12/2019 [facility] DATE CREATED AUTHOR AUTHOR'S ORGANIZ ATION 09/09/2021 [facility] DATE CREATED AUTHOR AUTHOR'S ORGANIZ ATION 10/24/2021 [facility] DATE CREATED AUTHOR AUTHOR'S ORGANIZ ATION 04/29/2022 [facility] DATE CREATED AUTHOR AUTHOR'S ORGANIZ ATION 05/07/2022 [facility] DATE CREATED AUTHOR AUTHOR'S ORGANIZ ATION 11/24/2022 [facility] DATE CREATED AUTHOR AUTHOR'S ORGANIZ ATION 01/06/2023 [facility] [place] DATE CREATED AUTHOR AUTHOR'S ORGANIZ ATION 05/02/2023 [facility] DATE CREATED AUTHOR AUTHOR'S ORGANIZ ATION 10/03/2023 [facility] DATE CREATED AUTHOR AUTHOR'S ORGANIZ ATION 11/08/2023 [facility] Reason for Visit (unrecogniz ed section and content) ReasonCommentsShoulder PainleftReasonCommentsChest PainFlank PainR sideReason CommentsEmesisCoughReasonCommentsShortness of BreathCoughReasonCommentsAbdominal PainRLQ pain started this am, intermittent but continuing to get worseReason CommentsChest PainMid sternal- started in back around 1615- hx of heart attack 02/2018ReasonCommentsNauseaEmesisReasonCommentsWrist Injuryputting on car tire today, pt felt a pop in wristReasonCommentsAnkle Painleft ankle (fell down steps 1 hour) positive preganancy testReasonCommentsCoughEmesisReasonCommentsCough Chest PainShortness of BreathReasonCommentsFlank PainPt c/o lt flank pain started about two hours ago after eating [employer], denies V/D?urinary stypoms ReasonCommentsAbdominal PainReasonCommentsKnee Painleft knee, ongoing issue for two years but tripped up stairReasonCommentsNauseaFeverEmesisReasonCommentsOther knee painSpecialtyDiagnoses / ProceduresReferred By ContactReferred To Contact Physical Therapy Diagnoses Tear of meniscus of left knee, unspecified meniscus, unspecified tear type, unspecified whether oldor current tear Juan Eugene, DO [address] [facility] [address], [address] [place] [address] [facility] Physical Therapy [address] [place] [phone] Referral IDStatusReasonStart DateExpiration DateVisits RequestedVisits [id number] Specialty Services Required [id number] Painpost mvcReasonCommentsNauseax2 weeks thinks she may be but on depo shotEmesisunable to keep anything down today not even waterSpecialtyDiagnoses / ProceduresReferred By Contact Referred To ContactRadiology Diagnoses Bucket handle tear of meniscus of left knee, unspecified meniscus, unspecified whether old or current tear, initial encounter Procedures MRI KNEE LEFT WO CONTRAST Jennifer Bean DO [facility], [facility] [address], [address] [place] [address] [facility] [address] [place] [address] Referral IDStatusReasonStart DateExpiration DateVisits RequestedVisits [id number] / Procedures Referred By ContactReferred To ContactPhysical Therapist / Physical Therapy Diagnoses It band syndrome, left Juan Eugene, DO [address] [facility] [address], [address] [place] [address] [facility] Physical Therapy [address] [place] [address] Referral IDStatusReasonStart DateExpiration DateVisits RequestedVisits [id number] Specialty Services Required [id number] BiteReasonCommentsBack PainFrom being kneed in her backHeadacheHit head on floor from ground levelReasonCommentsSinus ProblemReasonCommentsAllergic ReactionPt states she is allergic to shellfish and was exposed today at 1800 - she is having facial swelling and tingling. She's not having trouble breathing. She hasn't taken anything. Ordered Prescriptions (unrec ognized section and content) PrescriptionSigDispensedRefillsStart DateEnd cephALEXin (KEFLEX) 500 MG capsule Take 1 capsule by mouth 2 times daily for 7 days 14 capsule / doxycycline hyclate (VIBRA-TABS) 100 MG tablet Take 1 tablet by mouth 2 times daily for 14 days 28 tablet /rescriptionSigDispensedRefillsStart DateEnd ondansetron (ZOFRAN) 4 MG tablet Take 1 tablet by mouth every 8 hours as needed for Nausea 20 tablet rescriptionSigDispensedRefillsStart DateEnd ibuprofen (IBU) 800 MG tablet Take 1 tablet by mouth every 6 hours as needed for Pain 21 tablet acetaminophen (TYLENOL) 325 MG tablet Take 2 tablets by mouth every 6 hours as needed for Pain 60 tablet rescriptionSigDispensedRefillsStart DateEnd albuterol sulfate HFA (VENTOLIN HFA) 108 (90 Base) MCG/ACT inhaler Inhale 2 puffs into the lungs 4 times daily as needed for Wheezing 3 Inhaler ondansetron (ZOFRAN) 4 MG tablet Take 1 tablet by mouth daily as needed for Nausea or Vomiting 5 tablet rescriptionSigDispensedRefillsStart DateEnd cephALEXin (KEFLEX) 500 MG capsule Take 1 capsule by mouth 4 times daily for 7 days 28 capsule /rescriptionSigDispensedRefillsStart DateEnd cephALEXin (KEFLEX) 500 MG capsule Take 1 capsule by mouth 4 times daily for 7 days 27 capsule /rescriptionSigDispensedRefillsStart DateEnd ondansetron (ZOFRAN) 4 MG tablet Take 1 tablet by mouth daily as needed for Nausea or Vomiting 6 tablet acetaminophen (TYLENOL) 500 MG tablet Take 1 tablet by mouth 2 times daily as needed for Pain or Fever 20 tablet ondansetron (ZOFRAN) 4 MG tablet Take 1 tablet by mouth daily as needed for Nausea or Vomiting 6 tablet /rescriptionSigDispensedRefillsStart DateEnd acetaminophen (TYLENOL) 500 MG tablet Take 1 tablet by mouth 3 times daily as needed for Pain or Fever 20 tablet rescriptionSigDispensedRefillsStart DateEnd acetaminophen (TYLENOL) 500 MG tablet Take 2 tablets by mouth 4 times daily as needed for Pain 20 tablet rescriptionSigDispensedRefillsStart DateEnd ondansetron (ZOFRAN ODT) 4 MG disintegrating tablet Take 1 tablet by mouth every 8 hours as needed for Nausea 10 tablet cephALEXin (KEFLEX) 500 MG capsule Take 1 capsule by mouth 4 times daily for 7 days 28 capsule /rescriptionSigDispensedRefillsStart DateEnd amoxicillin-clavulanate (AUGMENTIN) 875-125 MG per tablet Take 1 tablet by mouth 2 times daily for 7 days 14 tablet /rescriptionSigDispensedRefillsStart DateEnd acetaminophen (TYLENOL) 500 MG tablet Take 2 tablets by mouth every 6 hours as needed for Pain 360 tablet rescriptionSigDispensedRefillsStart DateEnd benzonatate (TESSALON PERLES) 100 MG capsule Take 1 capsule by mouth 3 times daily as needed for Cough 30 capsule / guaiFENesin-dextromethorphan (ROBITUSSIN DM) 100-10 MG/5ML syrup Take 5 mLs by mouth 3 times daily as needed for Cough 120 mL / Scheduled Active and Recently Administ ered Medications (unrecognized section and content) Medication Order// ketorolac (TORADOL) injection 30 mg (COMPLETED) 30 mg, Intramuscular, ONCE, On Fri08/25/20 at 0000, For 1 dose, Do not administer for more than 5 days. * 0027 (Given - Provider: Karen Cash RN) Medication Order// dexamethasone (DECADRON) injection 8 mg (COMPLETED) 8 mg, Oral, ONCE, On Fri09/01/20 at 1300, For 1 dose * 1304 (Given - Provider: Bethanie Goddard RN) ondansetron (ZOFRAN) tablet 4 mg (COMPLETED) 4 mg, Oral, ONCE, On Fri09/01/20 at 1300, For 1 dose * 1304 (Given - Provider: Bethanie Goddard RN) Medication Order// cephALEXin (KEFLEX) capsule 500 mg (COMPLETED) 500 mg, Oral, ONCE, On Fri09/08/20 at 0515, For 1 dose * 0540 (Given - Provider: Isadora Conde RN) Medication Order// cephALEXin (KEFLEX) capsule 500 mg (COMPLETED) 500 mg, Oral, ONCE, On Fri10/11/20 at 0345, For 1 dose * 0519 (Given - Provider: Vashti Stallworth, JONE) Medication Order// iopamidol (ISOVUE-370) 76 % injection 75 mL (COMPLETED) 75 mL, IntraVENous, IMG ONCE PRN, Other, Starting on Fri10/11/20 at 0353, For 1 dose * 0356 (Given - Provider: Radha Resendiz) Medication Order///2021 acetaminophen (TYLENOL) tablet 1,000 mg (COMPLETED) 1,000 mg, Oral, ONCE, On Fri11/03/20 at 0245, For 1 dose, Maximum dose of acetaminophen is 4000 mg from all sources in 24 hours. * 0255 (Given - Provider: Marisol Cardoso RN) Medication Order01/07/20200218//20200218/ acetaminophen (TYLENOL) tablet 1,000 mg (COMPLETED) 1,000 mg, Oral, ONCE, On Fri01/09/21 at 2100, For 1 dose, Maximum dose of acetaminophen is 4000 mgfrom all sources in 24 hours., STAT * 2100 (Given - Provider: Shani Son RN) ondansetron (ZOFRAN) tablet 4 mg (COMPLETED) 4 mg, Oral, ONCE, On Fri01/09/21 at 2100, For 1 dose * 205 (Given - Provider: Shani Son RN) Medication Order///02/2021 acetaminophen (TYLENOL) tablet 1,000 mg (COMPLETED) 1,000 mg, Oral, ONCE, On Fri03/20/21 at 0015, For 1 dose * 0028 (Given - Provider: Kb Obrien LPN) Medication Order///04/2021 cephALEXin (KEFLEX) capsule 500 mg 500 mg, Oral, ONCE, 1 dose, On Fri06/19/21 at 1515, Antimicrobial Indications: Urinary Tract Infection * 1518 (Not Given - Provider: Chas Terrell RN - Reason: Patient/family refused) ondansetron (ZOFRAN-ODT) disintegrating tablet 4 mg (COMPLETED) 4 mg, Oral, ONCE, 1 dose, On Fri06/19/21 at 1430 * 1419 (Given - Provider: Chas Terrell RN) Medication Order/// amoxicillin-clavulanate (AUGMENTIN) 875-125 MG per tablet 1 tablet (COMPLETED) 1 tablet, Oral, ONCE, 1 dose, On Fri12/16/21 at 0900, Antimicrobial Indications: Skin and Soft Tissue Infection * 0859 (Given - Provider: Katharina Henson RN) Medication Order//08/2021 acetaminophen (TYLENOL) tablet 650 mg (COMPLETED) 650 mg, Oral, ONCE, 1 dose, On Fri12/24/21 at 0015, Maximum dose of acetaminophen is 4000 mg from all sources in 24 hours. * 0038 (Given - Provider: Ronaldo Mendes RN) orphenadrine (NORFLEX) injection 60 mg (COMPLETED) 60 mg, IntraMUSCular, ONCE, 1 dose, On Fri12/24/21 at 0015 * 0038 (Given - Provider: Roanldo Mendes RN) Medication Order// ondansetron (ZOFRAN-ODT) disintegrating tablet 4 mg (COMPLETED) 4 mg, Oral, ONCE, 1 dose, On Viviane 10/31/22 at 0000 * 0026 (Given - Provider: Ramone Rausch RN) Care Teams (unrecognized sec tion and content) Team MemberRelationshipSpecialtyStart DateEnd Date Obed Ho MD [address] [place] [address] PCP - GeneralFamily Medicine09/14/20Team MemberRelationshipSpecialtyStart DateEnd Date Nicole Rocha MD [address] [place] [phone] PCP - GeneralFamily Lqbinesn78/12/21Team MemberRelationshipSpecialtyStart Date End Date Nciole Rocha MD [address] [place] [phone] PCP - GeneralFamily Alqvwrqc86/12/21Te MemberRelationshipSpecialtyStart Date End Date Nicole Rocha MD [address] [place] [phone] PCP - GeneralFamily Usdywfcb90/12/21Team MemberRelationshipSpecialtyStart Date End Date Nicole Rocha MD [address] [facility], [address] [place] [phone] PCP - GeneralFamily Pyilxayi61/12/21Team MemberRelationshipSpecialtyStart Date End Date Johana Ayala MD [address] [facility] [address] [place] [phone] PCP - Generalmily Medicine05/07/21Team MemberRelationshipSpecialtyStart DateEnd Date Johana Ayala MD [address] [phone] PCP - Generalmily Medicine05/07/21Team MemberRelationshipSpecialtyStart DateEnd Date Johana Ayala MD [address] [facility] [address] [place] [phone] PCP - Generalmily Medicine05/07/21Team MemberRelationshipSpecialtyStart DateEnd Date Johana Ayala MD [address] [phone] PCP - Generalmily Medicine05/07/21Team MemberRelationshipSpecialtyStart DateEnd Date Johana Ayala MD [address] [facility] [address] [place] [phone] PCP - Generalmily Medicine05/07/21 Team Status: Inactive Member Role Status Dates SON Snowden Attending Provider Activ e Team MemberRelationshipSpecialtyStart DateEnd Date Johana Ayala MD [address] [phone] PCP - GeneralFamily Medicine05/07/21Team MemberRelationshipSpecialtyStart DateEnd Date Johana Ayala MD [address] [phone] PCP - GeneralFamily Medicine05/07/21Team MemberRelationshipSpecialtyStart DateEnd Date Johana Ayala MD [address] [phone] PCP - GeneralFamily Medicine05/07/21Team MemberRelationshipSpecialtyStart DateEnd Date [facility], [address] [address] PCP - GeneralNurse Practitioner09/02/22Team MemberRelationshipSpecialtyStart Date End Date Juanita Lewis [address] [address] PCP - GeneralNurse Practitioner09/02/22Team MemberRelationshipSpecialtyStart Date End Date [facility] [place] [address] [place] [address] PCP - GeneralNurse Practitioner09/02/22Team MemberRelationshipSpecialtyStart Date End Date Juanita Lewis PA-C [address] [place] [phone] PCP - GeneralPhysician Assistant04/29/22Team MemberRelationshipSpecialtyStart DateEnd Date [facility] ODILIA Cullen [address] [place] [phone] PCP - GeneralPhysician Assistant04/29/22 Goals (unrecognized section and content) Goals may [...] BE BASED ON THE PRIMARY CLINICAL RECORDS. [employer] [facility]. provides no warranty or guarantee of the accuracy or completeness of information in this document.
--- OUTSIDE RECORDS SUMMARY | 2024-12-18 12:41 | XMS_ITS | Clinical Summary ---
Author Organization [facility] Address [address] [place] [address] Care Team Providers Care Slubber Runner Name Role Phone Unavailable Primary Care Provider Unavailabl e Family History RelationNameStatusCommentsFatherAliveMotherAlive Social History Tobacco UseTypesPacks/DayYears UsedDateSmoking Tobacco: Every DayCigarettes Tobacco Cessation:Ready to Q uit: Not Asked; Counseling Given: Not Answered Alcohol UseStandard Drinks/WeekCommentsYes0 (1 standard drink = 0.6 oz pure alcohol)CommentsUnknownSex and Gender InformationValueDate RecordedSex Assigned at BirthNot on fileLegal MgnHrsjgk87/15/2023 8:14 PM EDTGender Identity Not on fileSexual OrientationNot on file Last Filed Vital Signs Vital SignReadingTime TakenCommentsBlood Fhwtmctt696/7804 12:00 PM EDT Pulse--Temperature--Respiratory Rate--Oxygen Saturation--Inhaled Oxygen Concentration--Evefpk414 kg (277 lb 3.2 oz)05/23/2019 12:00 PM NMPWzwmxc137.6 cm (5' 6 )05/23/2019 12:00 PM EDTBody Mass Index44.7404 12:00 PM EDT Plan of Treatment Not on file Insurance
--- OUTSIDE RECORDS SUMMARY | 2024-12-18 12:41 | XMS_ITS | Patient Health Record ---
Author Organization [facility] in [place] Address [address] [place] [address] Care Team Providers Care Sugar Sampler Name Role Phone Juanita Major Primary Care Provider Unav ailable Allergies Allergen (clinical drug ingredient) Drug/Non Drug Allergy documented on EMR Reaction Allergy Type Onset Date Status Muscle ReliefUnknownDrug AllergyActivecodeineCodeineUnknownDrug AllergyActive ketorolacKetorolacUnknownDrug AllergyActivemethocarbamolMethocarbamolUnknownDrug AllergyActivemetforminMetforminUnknownDrug AllergyActive Reason For Referral No Information Medications Medication SIG (Take, Route, Frequency, Duration) Notes Start Date End Date Status (w/Iron & FA) Active Social History Tobacco Use: Social History Observation Description Date Details (start date - stop date) Current Smoker NA - NA Tobacco Use/Smoking Question Answer Notes Patient is a current smoker Tobacco use other than smoking: Question Answer Notes Are you an other tobacco user? Yes V APES Problems Problem Type SNOMED Code ICD Code Onset Dates Problem Status W/U Status Risk Notes Problem Allergic rhinitis (54154095) Allergic rhi nitis, unspecified (J30.9) ActiveconfirmedProblemHypertrophy of tonsils AND adenoids (13298341)Hypertrophy of tonsils and adenoids (J35.3)ActiveconfirmedProblemHypertrophy of adenoids (850689359)Adenoid hypertrophy (J35.2)ActiveconfirmedProblemTonsillar hypertrophy (18527946)Tonsillar hypertrophy (J35.1)ActiveconfirmedProblemCryptic tonsil (773761978)Cryptic tonsil (J35.8)ActiveconfirmedProblemAllergic rhinitis caused by pollen (09657444)Seasonal allergic rhinitis due to pollen (J30.1) Activeconfirmed Plan Of Treatment No Information Insurance Providers Payer Name Payer Address Payer Phone Subscriber Number Group Number Insured Name Patient Relationship to Insured Coverage Start Date Coverage End Date [employer] [place] [employer] [address] [place] [address] [id number] Keila Diaz - patient is the [id number] 2020 Medical (General) History Medical History History ICD Code HTN ASTHMAHX OF BRONCHITISMIGRAINES/HEADACHESSEASONAL ALLERGIESFOOD ALLERGIES ARTHRITISHX OF YEAST INFECTIONSNORINGDIZZINESSHX OF TONSILLITISHX OF STREP THROATHX OF EAR INFECTIONSSurgical History Surgery Date(Month/Year) rotator cuff tear repair LEFT 2016
[2024-12-18 13:04] LABS: SARS-CoV-2 Ag NEGATIVE (NEGATIVE)
--- NOTE | 2024-12-18 14:36 | ED.NAVMDI1 ---
HPI - Nausea/Vomiting/Diarrhea General Chief complaint: Fever Stated complaint: SEBASTIÁN LIRIANOER, VOMITING Time Seen by Provider: 12/18/24 14:07 Source: patient Mode of arrival: walk-in History of Present Illness HPI Narrative: CC - NAUSEA, VOMITING AND DIARRHEA Symptoms began this morning. No known ill contacts and no recent travel. She did drink some apple cider last night and is not sure if maybe that was old or spoiled. She denies any abdominal pain or flank pain. No fever or chills. She has not tried to drink anything since throwing up around 630 this morning. She does not appear to be in distress at this time. No blood in emesis, urine or stool. No prior history of IBS, Crohn's, ulcerative colitis Related Data Home Medications ?Medication ?Instructions ?Recorded ?Confirmed No Known Home Medications 11/24/24 12/18/24 Allergies Allergy/AdvReac Type Severity Reaction Status Date / Time codeine Allergy Severe Anaphylaxis Verified 11/24/24 21:22 metformin Allergy Severe Anaphylaxis Verified 11/24/24 21:22 methocarbamol Allergy Severe Anaphylaxis Verified 11/24/24 21:22 ketorolac (From Toradol) Allergy Mild Rash Verified 11/24/24 21:22 PFSH PFSH Social History Little interest or pleasure in doing things: not at all Feeling down, depressed, or hopeless: not at all Exam Narrative Exam Narrative: Nurses notes and vital signs reviewed and patient is not hypoxic. afebrile General: Well-appearing and in no apparent distress. Skin: Warm, dry, no pallor noted. Eye: Pupils are equal, round and EOMI. No scleral icterus. Ears, Nose, Mouth, and Throat: Oral mucosa is moist Cardiovascular: Regular Rate and Rhythm without murmur, gallop or rub. Respiratory: No accessory muscle use or respiratory distress. Lungs are clear to auscultation, no wheezing, rales or rhonchi Back: No CVA tenderness Musculoskeletal: normal ROM GI: Abdomen is soft, non-distended. Normal bowel sounds. Obesity prevents accurate assessment of masses on physical examination. No tenderness to palpation. No rebound, guarding, or rigidity noted. Neurological: A&O x4. No cranial nerve dysfunction observed. No truncal ataxia. Moves all extremities. Sensation intact. Psychiatric: Cooperative and interactive. Normal mood and affect. Constitutional Vital Signs, click to edit/add: Last Vital Signs Temp 98.3 F 12/18/24 12:36 Pulse 85 12/18/24 12:36 BP 142/86 H 12/18/24 12:36 Pulse Ox 100 12/18/24 12:36 O2 Del Method Room Air 12/18/24 12:36 Course Vital Signs Vital signs: Vital Signs Temperature 98.3 F 12/18/24 12:36 Pulse Rate 85 12/18/24 12:36 Blood Pressure 142/86 H 12/18/24 12:36 Pulse Oximetry 100 12/18/24 12:36 Oxygen Delivery Method Room Air 12/18/24 12:36 Temperature 98.3 F 12/18/24 12:36 Pulse Rate 85 12/18/24 12:36 Blood Pressure 142/86 H 12/18/24 12:36 Pulse Oximetry 100 12/18/24 12:36 Oxygen Delivery Method Room Air 12/18/24 12:36 MDM - Nausea/Vomiting/Diarrhea MDM Narrative Medical decision making narrative: Patient does not appear to be in distress and her exam is benign. She was given oral dissolvable Zofran to discharge home with a prescription for additional Zofran. We discussed a clear liquid diet until her nausea subsides at which point she can advance to soft bland foods -diet advancement beyond that as tolerated. We discussed ED return if she worsens. Lab Data Labs: Lab Results 12/18/24 Range/Units 12:41 Influenza Type A Ag Negative Influenza Type B Ag Negative SARS-CoV-2 Ag (CV2AG) Negative (NEGATIVE) Discharge Plan Discharge Chief Complaint: Fever Clinical Impression: Gastroenteritis Patient Disposition: Home, Self-Care Time of Disposition Decision: 14:38 Prescriptions / Home Meds: No Action No Known Home Medications Print Language: Eritrean Instructions: Gastroenteritis (ED) Referrals: Physician,Non-Staff, MD [Primary Care Provider] - 1 week
[2024-12-18] MEDS: ONDANSETRON 4 MG RAPDIS TABLET SL (14:48)
== END 2024-12-18 14:52 | disposition home or self-care (01) ==
PROVIDERS: Emergency Provider Emergency Medicine
DX: K52.9 Noninfective gastroenteritis and colitis, unspecified (principal)
CPT/HCPCS: 87804; 87811; 99284; Q0162